=== PATIENT | female | born 1950 | race American Indian/Alaskan Native ===

== ENCOUNTER 2018-06-30 10:55 | Inpatient (IN) | payer MEDICARE ==
--- NOTE | 2018-06-30 11:13 | Emergency Department Report ---
Blank Doc - Documentation Documentation: Dr. Bella, GI states had colonoscopy yesterday bright red blood from rectum that began this morning, two episodes no abd pain no N/V states there were 4 polyps no pMHx no daily meds non drinker former smoker, quit 1988 no drug use labs MAIN for further eval
--- NOTE | 2018-06-30 11:50 | Emergency Department Report ---
HPI - General Chief Complaint: GI Bleed Time Seen by Provider: 06/30/18 11:11 - [facility] HPI: Room 7 Patient is a 68-year-old female presenting with a chief complaint rectal bleeding. Patient had a colonoscopy with polypectomy performed yesterday. The patient states this morning she felt as though she had the bathroom and when she did she passed gross blood. Patient states the blood appeared bright red in the bowl but dark with clots on the tissue. A few hours later the patient had a second episode of rectal bleeding. Patient denies ever having abdominal pain nausea vomiting. The patient states she has had approximate 40-50 pounds unintentional weight loss over the past year. Patient also complains of dyspnea on exertion approximately 3-5 months Location: [See above] Duration: [See above] Quality: Painless Severity: [See above] Modifying factors: [see above] Context: [see above] Mode of transportation: [not driving] ED Past Medical Hx - Past Medical History Previous Medical History?: No - Surgical History Past Surgical History?: No Additional Surgical History: Colonoscopy with polypectomy - Family History Family history: no significant - Social History Smoking Status: Former Smoker (none since 1988) Substance Use Type: None - Medications Home Medications: Home Medications Medication Instructions Recorded Confirmed Last Taken Type No Known Home Medications [No 06/30/18 06/30/18 Unknown History Reported Home Medications] ED Review of Systems ROS: Stated complaint: BLEEDING Other details as noted in HPI Constitutional: no symptoms reported Eyes: denies: eye pain ENT: denies: throat pain Respiratory: SOB with exertion Cardiovascular: denies: chest pain Endocrine: no symptoms reported Gastrointestinal: hematochezia. denies: abdominal pain, nausea, vomiting Genitourinary: denies: dysuria Musculoskeletal: denies: back pain Neurological: denies: headache Physical Exam - Physical Exam Vital Signs: Vital Signs 06/30/18 11:11 Temperature 98.1 F Pulse Rate 91 H Respiratory 16 Rate Blood Pressure 117/67 [Left] O2 Sat by Pulse 98 Oximetry Physical Exam: GENERAL: The patient is well-developed well-nourished female lying on stretcher not being to be in acute distress. [] HEENT: Normocephalic. Atraumatic. Extraocular motions are intact. Patient has moist mucous membranes. NECK: Supple. Trachea midline CHEST/LUNGS: Clear to auscultation. There is no respiratory distress noted. HEART/CARDIOVASCULAR: Regular. There is no tachycardia. There is no gallop rub or murmur. ABDOMEN: Abdomen is soft, nontender. Patient has normal bowel sounds. There is no abdominal distention. SKIN: There is no rash. There is no edema. There is no diaphoresis. NEURO: The patient is awake, alert, and oriented. The patient is cooperative. The patient has normal speech MUSCULOSKELETAL: There is no evidence of acute injury. ED Course Vital Signs 06/30/18 11:11 Temperature 98.1 F Pulse Rate 91 H Respiratory 16 Rate Blood Pressure 117/67 [Left] O2 Sat by Pulse 98 Oximetry - Consultations Consultation #1: 06/30/18 13:01 GI paged 06/30/18 13:20 Case discussed with GI (Betsy) ED Medical Decision Making - Lab Data Result diagrams: 06/30/18 11:35 06/30/18 11:35 Laboratory Tests 06/30/18 06/30/18 06/30/18 11:35 11:35 11:35 WBC 6.1 RBC 4.00 Hgb 12.2 Hct 36.3 MCV 91 MCH 31 MCHC 34 RDW 12.7 L Plt Count 210 Lymph % (Auto) 40.5 H [place] % (Auto) 7.4 H Eos % (Auto) 2.0 Baso % (Auto) 0.7 Lymph # 2.5 [place] # 0.5 Eos # 0.1 Baso # 0.0 Seg Neutrophils % 49.4 Seg Neutrophils # 3.0 PT 12.5 INR 0.88 APTT 28.1 Sodium 141 Potassium 4.3 Chloride 102.2 Carbon Dioxide 31 H Anion Gap 12 BUN 11 Creatinine 0.6 L Estimated GFR > 60 BUN/Creatinine Ratio 18 Glucose 114 H Calcium 9.2 Magnesium 1.80 Total Bilirubin 0.40 AST 19 ALT 24 Alkaline Phosphatase 75 NT-Pro-B Natriuret Pep Total Protein 6.7 Albumin 4.0 Albumin/Globulin Ratio 1.5 Lipase 29 Blood Type 06/30/18 06/30/18 11:38 11:55 WBC RBC Hgb Hct MCV MCH MCHC RDW Plt Count Lymph % (Auto) [place] % (Auto) Eos % (Auto) Baso % (Auto) Lymph # [place] # Eos # Baso # Seg Neutrophils % Seg Neutrophils # PT INR APTT Sodium Potassium Chloride Carbon Dioxide Anion Gap BUN Creatinine Estimated GFR BUN/Creatinine Ratio Glucose Calcium Magnesium Total Bilirubin AST ALT Alkaline Phosphatase NT-Pro-B Natriuret Pep 82.10 Total Protein Albumin Albumin/Globulin Ratio Lipase Blood Type A POSITIVE - Differential Diagnosis GI bleed Critical care attestation.: If time is entered above; I have spent that time in minutes in the direct care of this critically ill patient, excluding procedure time. ED Disposition Clinical Impression: GI bleeding, Orthostatic hypotension Disposition: -09 OP ADMIT IP TO THIS HOSP Is pt being admited?: Yes Does the pt Need Aspirin: No Condition: Fair Referrals: [facility]LY [facility] MD TARAN [Referring] - 3-5 Days Forms: Accompanied Note Time of Disposition: 12:59 (Hospitalist paged (Dr Anderson))
[2018-06-30 11:57] LABS: Basophils % (Auto) 0.7 % (0.0-1.8); Eosinophils # (Auto) 0.1 K/mm3 (0.0-0.4); Hematocrit 36.3 % (30.3-42.9); Hemoglobin 12.2 gm/dl (10.1-14.3); Lymphocytes # (Auto) 2.5 K/mm3 (1.2-5.4); Lymphocytes % (Auto) 40.5 % (13.4-35.0); Mean Corpuscular HGB Conc 34 % (30-34); Mean Corpuscular Volume 91 fl (79-97); Monocytes # (Auto) 0.5 K/mm3 (0.0-0.8); Monocytes % (Auto) 7.4 % (0.0-7.3); Platelet Count 210 K/mm3 (140-440); Red Cell Distribution Width 12.7 % (13.2-15.2)
[2018-06-30 12:13] LABS: Alanine Aminotransferase 24 units/L (7-56); BUN/Creatinine Ratio 18; Blood Urea Nitrogen 11 mg/dL (7-17); Calcium 9.2 mg/dL (8.4-10.2); Hemolysis Index 8
[2018-06-30 12:34] LABS: INR 0.88 (0.87-1.13)
[2018-06-30 12:37] LABS: Partial Thromboplastin Time 28.1 Sec. (24.2-36.6)
[2018-06-30] MEDS ORDERED: NACL 0.9% 1000 ML 1,000 ML IV ONE (12:57)
--- NOTE | 2018-06-30 17:25 | History and Physical Report ---
History of Present Illness Date of examination: 06/30/18 Date of admission: 06/30/18 13:02 Chief complaint: Lower GI Bleed 1 day History of present illness: 68-year-old female presenting with a chief complaint rectal bleeding. Patient had a colonoscopy with polypectomy performed yesterday. The patient states this morning she passed gross blood. Patient states the blood appeared bright red in the bowl but dark with clots on the tissue. A few hours later the patient had a second episode of rectal bleeding. Patient denies ever having abdominal pain nausea vomiting. The patient states she has had approximate 40-50 pounds unintentional weight loss over the past year. Patient also complains of dyspnea on exertion approximately 3-5 months Past Medical History Previous Medical History?: No Surgical History Past Surgical History?: No Additional Surgical History: Colonoscopy with polypectomy Family History Family history: no significant Social History Smoking Status: Former Smoker (none since 1988) Substance Use Type: None Review of Systems ROS: Stated complaint: BLEEDING Other details as noted in HPI Constitutional: no symptoms reported Eyes: denies: eye pain ENT: denies: throat pain Respiratory: SOB with exertion Cardiovascular: denies: chest pain Endocrine: no symptoms reported Gastrointestinal: hematochezia. denies: abdominal pain, nausea, vomiting Genitourinary: denies: dysuria Musculoskeletal: denies: back pain Neurological: denies: headache Medications and Allergies Allergies Allergy/AdvReac Type Severity Reaction Status Date / Time Penicillins Allergy Hives Verified 06/30/18 10:56 Home Medications Medication Instructions Recorded Confirmed Last Taken Type No Known Home Medications [No 06/30/18 06/30/18 Unknown History Reported Home Medications] Exam - Constitutional Vitals: Temp Pulse Resp BP Pulse Ox 97.9 F 78 18 148/61 99 06/30/18 14:50 06/30/18 14:50 06/30/18 14:50 06/30/18 14:50 06/30/18 14:50 General appearance: Present: no acute distress, well-nourished - EENT Eyes: Present: PERRL ENT: hearing intact, clear oral mucosa - Neck Neck: Present: supple, normal ROM - Respiratory Respiratory effort: normal Respiratory: bilateral: CTA - Cardiovascular Heart rate: 78 Rhythm: regular Heart Sounds: Present: S1 & S2. Absent: rub, click - Extremities Extremities: no ischemia, pulses intact, pulses symmetrical, No edema Peripheral Pulses: within normal limits - Abdominal General gastrointestinal: Present: soft, non-tender, non-distended, normal bowel sounds Female genitourinary: Present: normal - Rectal Rectal Exam: stool bloody - Integumentary Integumentary: Present: clear, warm, dry - Musculoskeletal Musculoskeletal: gait normal, strength equal bilaterally - Psychiatric Psychiatric: appropriate mood/affect, intact judgment & insight - Neurologic Neurologic: CNII-XII intact, moves all extremities - Allied Health Allied health notes reviewed: nursing, case management Results - Labs CBC & Chem 7: 06/30/18 11:35 06/30/18 11:35 Labs: Laboratory Last Values WBC 6.1 K/mm3 (4.5-11.0) 06/30/18 11:35 RBC 4.00 M/mm3 (3.65-5.03) 06/30/18 11:35 Hgb 12.2 gm/dl (10.1-14.3) 06/30/18 11:35 Hct 36.3 % (30.3-42.9) 06/30/18 11:35 MCV 91 fl (79-97) 06/30/18 11:35 MCH 31 pg (28-32) 06/30/18 11:35 MCHC 34 % (30-34) 06/30/18 11:35 RDW 12.7 % (13.2-15.2) L 06/30/18 11:35 Plt Count 210 K/mm3 (140-440) 06/30/18 11:35 Lymph % (Auto) 40.5 % (13.4-35.0) H 06/30/18 11:35 [place] % (Auto) 7.4 % (0.0-7.3) H 06/30/18 11:35 Eos % (Auto) 2.0 % (0.0-4.3) 06/30/18 11:35 Baso % (Auto) 0.7 % (0.0-1.8) 06/30/18 11:35 Lymph # 2.5 K/mm3 (1.2-5.4) 06/30/18 11:35 [place] # 0.5 K/mm3 (0.0-0.8) 06/30/18 11:35 Eos # 0.1 K/mm3 (0.0-0.4) 06/30/18 11:35 Baso # 0.0 K/mm3 (0.0-0.1) 06/30/18 11:35 Seg Neutrophils % 49.4 % (40.0-70.0) 06/30/18 11:35 Seg Neutrophils # 3.0 K/mm3 (1.8-7.7) 06/30/18 11:35 PT 12.5 Sec. (12.2-14.9) 06/30/18 11:35 INR 0.88 (0.87-1.13) 06/30/18 11:35 APTT 28.1 Sec. (24.2-36.6) 06/30/18 11:35 Sodium 141 mmol/L (137-145) 06/30/18 11:35 Potassium 4.3 mmol/L (3.6-5.0) 06/30/18 11:35 Chloride 102.2 mmol/L (98-107) 06/30/18 11:35 Carbon Dioxide 31 mmol/L (22-30) H 06/30/18 11:35 12 mmol/L 06/30/18 11:35 BUN 11 mg/dL (7-17) 06/30/18 11:35 0.6 mg/dL (0.7-1.2) L 06/30/18 11:35 Estimated GFR > 60 ml/min 06/30/18 11:35 18 % 06/30/18 11:35 Glucose 114 mg/dL (65-100) H 06/30/18 11:35 Calcium 9.2 mg/dL (8.4-10.2) 06/30/18 11:35 Magnesium 1.80 mg/dL (1.7-2.3) 06/30/18 11:35 0.40 mg/dL (0.1-1.2) 06/30/18 11:35 AST 19 units/L (5-40) 06/30/18 11:35 ALT 24 units/L (7-56) 06/30/18 11:35 75 units/L (35-129) 06/30/18 11:35 NT-Pro-B Natriuret Pep 82.10 pg/mL (0-900) 06/30/18 11:55 6.7 g/dL (6.3-8.2) 06/30/18 11:35 4.0 g/dL (3.9-5) 06/30/18 11:35 1.5 % 06/30/18 11:35 29 units/L (13-60) 06/30/18 11:35 Blood Type A POSITIVE 06/30/18 11:38 Antibody Screen Negative 06/30/18 11:38 Assessment and Plan Advance Directives: Yes (ull code) VTE prophylaxis?: Chemical, Mechanical Plan of care discussed with patient/family: Yes - Patient Problems (1) Lower GI bleed Current Visit: Yes Status: Acute Plan to address problem: Sec to procedure R/o bleeding laesion Obsevation COlonoscopy if necessary May resolve by itself (2) Orthostatic hypotension Current Visit: Yes Status: Acute Plan to address problem: IV Fluids for now (3) DVT prophylaxis Current Visit: Yes Status: Acute Plan to address problem: On SCd's and GI prophylaxis
--- NOTE | 2018-06-30 17:57 | Consultation ---
REFERRING PHYSICIAN: Rodney Anderson MD INDICATION: Rectal bleeding. HISTORY: The patient is a 68-year-old black female presents for lower gastrointestinal bleed. The patient had a colonoscopy as there were 4 polyps were removed by Dr. Bella. The patient reports she was okay overnight, but this morning at about 7:00 p.m. had a bloody bowel movement with small clots. She reports since that time, she has had two more offset bowel movements including one since she has been admitted. She reports no abdominal pain. She reports no upper GI symptoms including nausea, vomiting, heartburn, or reflux ingestion. She reports she had not taken any NSAIDs. The patient subsequently came to the Emergency Room and was admitted and GI consulted. PAST MEDICAL HISTORY: Negative. MEDICATIONS: Reviewed and updated in chart. ALLERGIES: No known drug allergies. SOCIAL HISTORY: Denies alcohol, tobacco, or IV drug abuse. FAMILY HISTORY: Negative for colon cancer, IBD, or liver disease. REVIEW OF SYSTEMS: GENERAL: Reports mild weakness. HEENT: No visual complaints or tinnitus. PULMONARY: No shortness of breath. No cough. No chest pain. GASTROINTESTINAL: Reports rectal bleeding. All points of 13-point review of systems otherwise negative. PHYSICAL EXAMINATION: VITAL SIGNS: Temperature of 97.9, pulse 70, respirations 20, blood pressure 148/61. GENERAL: Fairly nourished female, in no acute distress. HEENT: Pupils equal, round and reactive. PULMONARY: Clear to auscultation bilaterally. CARDIOVASCULAR: Regular rhythm. Normal S1, S2. ABDOMEN: Positive bowel sounds, soft. SKIN: No obvious rashes. LABORATORY DATA: Pertinent for white count of 6, hemoglobin and hematocrit of 12.2 and 36.3, platelet count of 210. Coags within normal limits. Chem-7 within normal limits. LFTs within normal limits. ASSESSMENT AND PLAN: A 68-year-old female presents with post-polypectomy bleed after colonoscopy yesterday removed 4 polyps. The patient has not had any further bloody bowel movements and has had 3 total today. I have discussed her options with her and her family. They would want to take a more conservative approach at this time. PLAN: 1. We will follow hematocrit and transfuse as needed. 2. Clear liquid diet, n.p.o. after midnight. 3. Avoid anti-inflammatories and NSAIDs. 4. We will hold on repeat colonoscopy unless the patient shows signs of active bleeding. 5. If H and H stable in a.m., okay to discharge. [facility]# [id number] [facility]
[2018-07-01] MEDS ORDERED: TYLENOL PO PRN (01:12)
[2018-07-01] MEDS ORDERED: MORPHINE IV PRN (01:12)
[2018-07-01] MEDS ORDERED: ZOFRAN IV PRN (01:12)
[2018-07-01] MEDS ORDERED: SODIUM CHLORIDE FLUSH SYRINGE 10 ML IV PRN (01:12)
[2018-07-01 01:56] LABS: Basophils % (Auto) 0.6 % (0.0-1.8); Eosinophils # (Auto) 0.1 K/mm3 (0.0-0.4); Eosinophils % (Auto) 2.3 % (0.0-4.3); Hematocrit 33.9 % (30.3-42.9); Hemoglobin 11.4 gm/dl (10.1-14.3); Lymphocytes # (Auto) 2.3 K/mm3 (1.2-5.4); Lymphocytes % (Auto) 39.7 % (13.4-35.0); Mean Corpuscular HGB Conc 34 % (30-34); Mean Corpuscular Volume 91 fl (79-97); Monocytes # (Auto) 0.4 K/mm3 (0.0-0.8); Monocytes % (Auto) 7.6 % (0.0-7.3); Platelet Count 192 K/mm3 (140-440); Red Blood Count 3.72 M/mm3 (3.65-5.03); Red Cell Distribution Width 12.7 % (13.2-15.2)
[2018-07-01] MEDS ORDERED: NACL 0.9% 1000 ML 1,000 ML IV SCH (02:00)
[2018-07-01 02:22] LABS: Alanine Aminotransferase 25 units/L (7-56); Albumin 3.8 g/dL (3.9-5); BUN/Creatinine Ratio 20; Blood Urea Nitrogen 10 mg/dL (7-17); Calcium 9.7 mg/dL (8.4-10.2); Hemolysis Index 6
[2018-07-01] MEDS ORDERED: PEPCID IV SCH (10:00)
[2018-07-01] MEDS ORDERED: SODIUM CHLORIDE FLUSH SYRINGE 10 ML IV SCH (10:00)
--- NOTE | 2018-07-01 10:45 | Discharge Summary ---
Providers - Providers Date of Admission: 06/30/18 13:02 Date of discharge: 07/01/18 Attending physician: NATY AHMADI 06/30/18 13:19 Consult to Physician [CONS] Urgent Comment: called office/ oswald spoke to michelle Consulting Provider: ESAU MADRIGAL Physician Instructions: Reason For Exam: gi bleed Primary care physician: STEVE CARRERO MD Hospitalization Condition: Fair Hospital course: Patient is 68-year-old female presenting with a chief complaint rectal bleeding. Patient had a colonoscopy with polypectomy performed day prior to presentation. She was seen in this department and evaluated. He was evaluated in ED. Hemoglobin was stable at 12.2. She was admitted and evaluated by GI physician. He recommends patient to be discharged home since hemoglobin is stable and there was no further bleeding. Disposition: TO HOME OR SELFCARE - Discharge Diagnoses (1) Lower GI bleed Status: Acute (2) Orthostatic hypotension Status: Acute Core Measure Documentation - Palliative Care Palliative Care/ Comfort Measures: Not Applicable - Core Measures Any of the following diagnoses?: none Exam - Constitutional Vitals: Temp Pulse Resp BP Pulse Ox 98.0 F 79 18 119/43 100 07/01/18 08:05 07/01/18 08:05 07/01/18 08:05 07/01/18 08:05 07/01/18 08:05 Plan Activity: no restrictions Diet: regular Additional Instructions: 1.Follow up with PCP in 1 week. 2.Follow up with GI Physician in 1 wwek Follow up with: LIZ STEPHENSON MD [Referring] - 3-5 Days Forms: Accompanied Note
--- NOTE | 2018-07-01 10:54 | Gastroenterology Progress Note ---
Assessment and Plan 1. Post-polypectomy bleed - no further bleeding overnight/this morning. H/H stable. okay to be discharged. pt instructed to call/return to hospital for any changes/recurrent bleeding. cont to avoid nsaid's. will sign off, please call as needed. Subjective Date of service: 07/01/18 Principal diagnosis: gi bleed Interval history: pt seen and examined. scant blood with bm at 1 am followed by normal bm this morning without blood. denies abd pain. Objective - Constitutional Vitals: Temp Pulse Resp BP Pulse Ox 98.0 F 79 18 119/43 100 07/01/18 08:05 07/01/18 08:05 07/01/18 08:05 07/01/18 08:05 07/01/18 08:05 General appearance: no acute distress - Respiratory Respiratory effort: normal Respiratory: bilateral: CTA - Cardiovascular Rhythm: regular Heart Sounds: Present: S1 & S2 - Gastrointestinal General gastrointestinal: Present: soft, non-tender, non-distended - Neurologic Neurological: alert and oriented x3 - Labs CBC & Chem 7: 07/01/18 01:35 07/01/18 01:35 Labs: Laboratory Results - last 24 hr 06/30/18 06/30/18 06/30/18 11:35 11:35 11:35 WBC 6.1 RBC 4.00 Hgb 12.2 Hct 36.3 MCV 91 MCH 31 MCHC 34 RDW 12.7 L Plt Count 210 Lymph % (Auto) 40.5 H [place] % (Auto) 7.4 H Eos % (Auto) 2.0 Baso % (Auto) 0.7 Lymph # 2.5 [place] # 0.5 Eos # 0.1 Baso # 0.0 Seg Neutrophils % 49.4 Seg Neutrophils # 3.0 PT 12.5 INR 0.88 APTT 28.1 Sodium 141 Potassium 4.3 Chloride 102.2 Carbon Dioxide 31 H Anion Gap 12 BUN 11 Creatinine 0.6 L Estimated GFR > 60 BUN/Creatinine Ratio 18 Glucose 114 H Calcium 9.2 Magnesium 1.80 Total Bilirubin 0.40 AST 19 ALT 24 Alkaline Phosphatase 75 NT-Pro-B Natriuret Pep Total Protein 6.7 Albumin 4.0 Albumin/Globulin Ratio 1.5 Lipase 29 Blood Type Antibody Screen 06/30/18 06/30/18 07/01/18 11:38 11:55 01:35 WBC 5.8 RBC 3.72 Hgb 11.4 Hct 33.9 MCV 91 MCH 31 MCHC 34 RDW 12.7 L Plt Count 192 Lymph % (Auto) 39.7 H [place] % (Auto) 7.6 H Eos % (Auto) 2.3 Baso % (Auto) 0.6 Lymph # 2.3 [place] # 0.4 Eos # 0.1 Baso # 0.0 Seg Neutrophils % 49.8 Seg Neutrophils # 2.9 PT INR APTT Sodium Potassium Chloride Carbon Dioxide Anion Gap BUN Creatinine Estimated GFR BUN/Creatinine Ratio Glucose Calcium Magnesium Total Bilirubin AST ALT Alkaline Phosphatase NT-Pro-B Natriuret Pep 82.10 Total Protein Albumin Albumin/Globulin Ratio Lipase Blood Type A POSITIVE Antibody Screen Negative 07/01/18 01:35 WBC RBC Hgb Hct MCV MCH MCHC RDW Plt Count Lymph % (Auto) [place] % (Auto) Eos % (Auto) Baso % (Auto) Lymph # [place] # Eos # Baso # Seg Neutrophils % Seg Neutrophils # PT INR APTT Sodium 141 Potassium 3.9 Chloride 101.8 Carbon Dioxide 26 Anion Gap 17 BUN 10 Creatinine 0.5 L Estimated GFR > 60 BUN/Creatinine Ratio 20 Glucose 105 H Calcium 9.7 Magnesium Total Bilirubin 0.70 AST 21 ALT 25 Alkaline Phosphatase 71 NT-Pro-B Natriuret Pep Total Protein 6.6 Albumin 3.8 L Albumin/Globulin Ratio 1.4 Lipase Blood Type Antibody Screen
[2018-07-01 14:24] VITALS: BP 153/62
== END 2018-07-01 15:29 | disposition home or self-care (01) | DRG 921 ==
LOC: ED 10:55 → 2B-ACE 13:02
PROVIDERS: ADMIT Internal Medicine; ATTEND Internal Medicine
DX: K91.840 Postprocedural hemorrhage of a digestive system organ or structure following a digestive system procedure (principal); I95.1 Orthostatic hypotension; Y83.8 Other surgical procedures as the cause of abnormal reaction of the patient, or of later complication, without mention of misadventure at the time of the procedure; Y92.89 Other specified places as the place of occurrence of the external cause; Z87.891 Personal history of nicotine dependence
CPT/HCPCS: 36415; 80053; 83690; 83735; 83880; 85025; 85610; 85730; 86850; 86900; 86901; 96374; G0378; J7030

== ENCOUNTER 2018-07-26 22:51 | Inpatient (IN) | payer MEDICARE ==
[2018-07-26] MEDS: ASPIRIN PO ONE ×2 (23:09→23:45)
[2018-07-26] MEDS ORDERED: NACL 0.9% 500 ML 500 ML ONE (23:13)
[2018-07-26] MEDS ORDERED: CARDIZEM ONE (23:18)
[2018-07-26] MEDS ORDERED: CARDIZEM IV ONE (23:22)
[2018-07-26 23:43] LABS: Basophils % (Auto) 0.6 % (0.0-1.8); Eosinophils # (Auto) 0.2 K/mm3 (0.0-0.4); Eosinophils % (Auto) 3.2 % (0.0-4.3); Hematocrit 37.5 % (30.3-42.9); Hemoglobin 12.6 gm/dl (10.1-14.3); Lymphocytes # (Auto) 3.5 K/mm3 (1.2-5.4); Lymphocytes % (Auto) 48.7 % (13.4-35.0); Mean Corpuscular HGB Conc 34 % (30-34); Mean Corpuscular Volume 92 fl (79-97); Monocytes # (Auto) 0.5 K/mm3 (0.0-0.8); Monocytes % (Auto) 7.5 % (0.0-7.3); Platelet Count 242 K/mm3 (140-440); Red Blood Count 4.08 M/mm3 (3.65-5.03)
--- NOTE | 2018-07-26 23:58 | Emergency Department Report ---
ED Palpitations HPI - General Chief Complaint: Chest Pain Stated Complaint: CHEST PAIN Time Seen by Provider: 07/26/18 23:07 Source: patient Mode of arrival: Ambulatory Limitations: No Limitations - History of Present Illness Initial Comments: 68-year-old female with no Past medical history other than recent admission for mild rectal bleeding status post polypectomy during colonoscopy presents to Hospital with complaint of palpitations, chest pain, shortness of breath that started 30 minutes prior to arrival. Symptoms are constant. No aggravating or alleviating factors reported. Lightheadedness reported. Patient denies a history of previous SVT, heart arrhythmia, or any type of heart disease. Patient states that she had outpatient CT scan abdomen and pelvis with IV contrast performed today to workup for unexplained weight loss. - Related Data Home Medications Medication Instructions Recorded Confirmed Last Taken No Known Home Medications [No 06/30/18 06/30/18 Unknown Reported Home Medications] Allergies Allergy/AdvReac Type Severity Reaction Status Date / Time Penicillins Allergy Hives Verified 06/30/18 10:56 ED Review of Systems ROS: Stated complaint: CHEST PAIN Other details as noted in HPI Comment: All other systems reviewed and negative ED Past Medical Hx - Past Medical History Previous Medical History?: No - Surgical History Past Surgical History?: Yes Additional Surgical History: Colonoscopy with polypectomy - Social History Smoking Status: Never Smoker - Medications Home Medications: Home Medications Medication Instructions Recorded Confirmed Last Taken Type No Known Home Medications [No 06/30/18 06/30/18 Unknown History Reported Home Medications] ED Physical Exam - General Limitations: No Limitations - Other Other exam information: General: Patient appears to be uncomfortable Head exam: Atraumatic, normocephalic Eyes exam: Normal appearance ENT: Moist mucous membrane, normal oropharynx Neck exam: Normal inspection, full range of motion, no meningismus nontender, no goiter Respiratory exam: Clear to auscultation bilateral, no wheezes, rales, crackles Cardiovascular: Tachycardic, regular rhythm Abdomen: Soft, nondistended, and nontender, with normal bowel sounds, no rebound, or guarding Extremity: Full range of motion normal inspection no deformity, no calf tenderness or edema Back: Normal Inspection, full range of motion, no tenderness Neurologic: Alert, oriented x3, cranial nerves intact, no motor or sensory defic it Psychiatric: normal affect, normal mood Skin: Warm, dry, intact ED Course Vital Signs 07/26/18 07/26/18 22:55 23:10 Temperature 98.0 F Pulse Rate 176 H Respiratory 20 24 Rate Blood Pressure 144/99 O2 Sat by Pulse 98 Oximetry - Reevaluation(s) Reevaluation #1: 07/26/18 23:41 Patient have several different rhythms in the ED. She initially had SVT at rate of 166. During evaluation patient states that she felt like her heart rate was improving. Rhythm on monitor slowe down briefly appeared to be sinus with then quickly sped back up. Then rhythm appeared to be a flutter with a rate in the 160s. Patient did receive adenosine 6 mg and atrial flutter waves were more prominent. The patient's heart rate quickly increased back to the 160s with noticeable flutter waves. Patient received Cardizem 15 mg with improvement in heart rate to 80 and was difficult to discern P waves on the rhythm strip however, repeat EKG confirmed sinus rhythm rate 69. I have printed the above rhythm strips and indicated on the rhythm strips when the medications were given and the associated rhythm changes. Please refer to rhythm strips printed on chart until these are scanned into [facility] - Consultations Consultation #1: 07/27/18 00:16 case d/w Dr Norwood cardiology, will consult ED Medical Decision Making - Lab Data Result diagrams: 07/26/18 23:13 07/26/18 23:13 Lab Results 07/26/18 07/26/18 07/26/18 Range/Units 23:13 23:13 23:13 WBC 7.2 (4.5-11.0) K/mm3 RBC 4.08 (3.65-5.03) M/mm3 Hgb 12.6 (10.1-14.3) gm/dl Hct 37.5 (30.3-42.9) % MCV 92 (79-97) fl MCH 31 (28-32) pg MCHC 34 (30-34) % RDW 13.0 L (13.2-15.2) % Plt Count 242 (140-440) K/mm3 Lymph % (Auto) 48.7 H (13.4-35.0) % [place] % (Auto) 7.5 H (0.0-7.3) % Eos % (Auto) 3.2 (0.0-4.3) % Baso % (Auto) 0.6 (0.0-1.8) % Lymph # 3.5 (1.2-5.4) K/mm3 [place] # 0.5 (0.0-0.8) K/mm3 Eos # 0.2 (0.0-0.4) K/mm3 Baso # 0.0 (0.0-0.1) K/mm3 Seg Neutrophils % 40.0 (40.0-70.0) % Seg Neutrophils # 2.9 (1.8-7.7) K/mm3 PT 11.1 L (12.2-14.9) Sec. INR 0.83 L (0.87-1.13) APTT 25.6 (24.2-36.6) Sec. Sodium 138 (137-145) mmol/L Potassium 4.1 (3.6-5.0) mmol/L Chloride 100.0 (98-107) mmol/L Carbon Dioxide 23 (22-30) mmol/L Anion Gap 19 mmol/L BUN 16 (7-17) mg/dL Creatinine 0.7 (0.7-1.2) mg/dL Estimated GFR > 60 ml/min BUN/Creatinine Ratio 23 % Glucose 122 H (65-100) mg/dL Calcium 9.6 (8.4-10.2) mg/dL Magnesium (1.7-2.3) mg/dL Troponin T < 0.010 (0.00-0.029) ng/mL 07/26/18 Range/Units 23:13 WBC (4.5-11.0) K/mm3 RBC (3.65-5.03) M/mm3 Hgb (10.1-14.3) gm/dl Hct (30.3-42.9) % MCV (79-97) fl MCH (28-32) pg MCHC (30-34) % RDW (13.2-15.2) % Plt Count (140-440) K/mm3 Lymph % (Auto) (13.4-35.0) % [place] % (Auto) (0.0-7.3) % Eos % (Auto) (0.0-4.3) % Baso % (Auto) (0.0-1.8) % Lymph # (1.2-5.4) K/mm3 [place] # (0.0-0.8) K/mm3 Eos # (0.0-0.4) K/mm3 Baso # (0.0-0.1) K/mm3 Seg Neutrophils % (40.0-70.0) % Seg Neutrophils # (1.8-7.7) K/mm3 PT (12.2-14.9) Sec. INR (0.87-1.13) APTT (24.2-36.6) Sec. Sodium (137-145) mmol/L Potassium (3.6-5.0) mmol/L Chloride (98-107) mmol/L Carbon Dioxide (22-30) mmol/L Anion Gap mmol/L BUN (7-17) mg/dL Creatinine (0.7-1.2) mg/dL Estimated GFR ml/min BUN/Creatinine Ratio % Glucose (65-100) mg/dL Calcium (8.4-10.2) mg/dL Magnesium 1.90 (1.7-2.3) mg/dL Troponin T (0.00-0.029) ng/mL - EKG Data -: EKG Interpreted by Ar EKG shows normal: axis (qrs 68), QRS complexes (qrsd 106), ST-T waves (no stemi) Rate: tachycardia (163 (supraventricular tachcardia)) - EKG Data 07/26/18 23:24 (after cardizem) ekg sinus rhythm rate 69 qrs axis 59, qrsd 73, no setim - Radiology Data Radiology results: report reviewed (cxr: naf) - Medical Decision Making Patient felt much better remains in sinus rhythm since receiving Cardizem. She denies any persistent chest pain or shortness of breath. Thyroid tests are pending at disposition case discussed with health information specialist graphic coordinator and hospitalist. - Differential Diagnosis atrial fibrillation, SVT, thyroid disease, MA, Critical Care Time: No Critical care attestation.: If time is entered above; I have spent that time in minutes in the direct care of this critically ill patient, excluding procedure time. ED Disposition Clinical Impression: SVT (supraventricular tachycardia), Atrial flutter with rapid ventricular re sponse Disposition: OP ADMIT IP TO THIS HOSP Is pt being admited?: Yes Does the pt Need Aspirin: Yes Condition: Stable Time of Disposition: 00:35 (Dr De Souza/hosp)
[2018-07-26 23:59] LABS: INR 0.83 (0.87-1.13); Partial Thromboplastin Time 25.6 Sec. (24.2-36.6)
[2018-07-27 00:06] LABS: BUN/Creatinine Ratio 23; Blood Urea Nitrogen 16 mg/dL (7-17); Calcium 9.6 mg/dL (8.4-10.2); Hemolysis Index 10
--- NOTE | 2018-07-27 00:06 | XRay Report ---
PROCEDURE: XR CHEST 1V AP TECHNIQUE: Chest radiograph single view. HISTORY: Chest Pain COMPARISONS: None . FINDINGS: Heart: Normal. Mediastinum/Vessels: Normal. Lungs/Pleural space: Normal. Bony thorax: No acute osseous abnormality. Life support devices: None. IMPRESSION: No acute cardiopulmonary abnormality. This document is electronically signed by Lemuel Medrano MD., July 27 2018 12:04:06 AM ET
[2018-07-27] MEDS ORDERED: ASPIRIN PO ONE (00:18)
--- NOTE | 2018-07-27 01:33 | History and Physical Report ---
History of Present Illness Chief complaint: Palpitations History of present illness: 68-year-old with no significant past medical history She presents to the hospital one day of chest pains palpitations associated with shortness of breath. He was episodic in nature. She felt like her heart was going to jump out of her chest. -She states that she has had no changes in her health except for unexpected/unplanned weight loss. She had just received a contrast CT of the abdomen and pelvis earlier today for evaluation of cause of weight loss. In the ED she had alternating heart rate then, in and out of atrial flut ter/atrial fibrillation and SVT. The patient received adenosine followed by [facility] after which she went back to sinus rhythm Past medical history History of colonic polyps with mild bleeding after polypectomy Past surgical history Denies any major surgeries, admits to polypectomy with colonoscopy Social history No tobacco alcohol abuse or illicit drug use. Lives at home Family history; her son had a flutter requiring ablation Medications and Allergies Allergies Allergy/AdvReac Type Severity Reaction Status Date / Time Penicillins Allergy Hives Verified 06/30/18 10:56 Home Medications Medication Instructions Recorded Confirmed Last Taken Type No Known Home Medications [No 06/30/18 07/27/18 Unknown History Reported Home Medications] Review of Systems All systems: negative Constitutional: no weight loss Ears, nose, mouth and throat: no tinnitis Breasts: no deferred Cardiovascular: chest pain, palpitations, rapid/irregular heart beat, no orthopn ea, no edema, no syncope Respiratory: no cough Gastrointestinal: no abdominal pain Genitourinary Female: no pelvic pain Rectal: no pain Musculoskeletal: no neck stiffness Integumentary: no rash Neurological: no head injury Psychiatric: no anxiety Endocrine: no cold intolerance Hematologic/Lymphatic: no easy bruising Allergic/Immunologic: no urticaria Exam - Constitutional Vitals: Temp Pulse Resp BP Pulse Ox 98.0 F 176 H 24 144/99 98 07/26/18 22:55 07/26/18 22:55 07/26/18 23:10 07/26/18 22:55 07/26/18 22:55 General appearance: Present: no acute distress, well-nourished - EENT Eyes: Present: PERRL ENT: hearing intact, clear oral mucosa - Neck Neck: Present: supple, normal ROM - Respiratory Respiratory effort: normal Respiratory: bilateral: CTA - Cardiovascular Heart Sounds: Present: S1 & S2. Absent: rub, click - Extremities Extremities: pulses symmetrical, No edema Peripheral Pulses: within normal limits - Abdominal General gastrointestinal: Present: soft, non-tender, non-distended, normal bowel sounds Female genitourinary: Present: normal - Integumentary Integumentary: Present: clear, warm, dry - Musculoskeletal Musculoskeletal: gait normal, strength equal bilaterally - Psychiatric Psychiatric: appropriate mood/affect, intact judgment & insight - Neurologic Neurologic: CNII-XII intact, moves all extremities Results - Labs CBC & Chem 7: 07/27/18 01:59 07/26/18 23:13 Labs: Laboratory Last Values WBC 7.2 K/mm3 (4.5-11.0) 07/26/18 23:13 RBC 4.08 M/mm3 (3.65-5.03) 07/26/18 23:13 Hgb 12.6 gm/dl (10.1-14.3) 07/26/18 23:13 Hct 37.5 % (30.3-42.9) 07/26/18 23:13 MCV 92 fl (79-97) 07/26/18 23:13 MCH 31 pg (28-32) 07/26/18 23:13 MCHC 34 % (30-34) 07/26/18 23:13 RDW 13.0 % (13.2-15.2) L 07/26/18 23:13 Plt Count 242 K/mm3 (140-440) 07/26/18 23:13 Lymph % (Auto) 48.7 % (13.4-35.0) H 07/26/18 23:13 [place] % (Auto) 7.5 % (0.0-7.3) H 07/26/18 23:13 Eos % (Auto) 3.2 % (0.0-4.3) 07/26/18 23:13 Baso % (Auto) 0.6 % (0.0-1.8) 07/26/18 23:13 Lymph # 3.5 K/mm3 (1.2-5.4) 07/26/18 23:13 [place] # 0.5 K/mm3 (0.0-0.8) 07/26/18 23:13 Eos # 0.2 K/mm3 (0.0-0.4) 07/26/18 23:13 Baso # 0.0 K/mm3 (0.0-0.1) 07/26/18 23:13 Seg Neutrophils % 40.0 % (40.0-70.0) 07/26/18 23:13 Seg Neutrophils # 2.9 K/mm3 (1.8-7.7) 07/26/18 23:13 PT 11.1 Sec. (12.2-14.9) L 07/26/18 23:13 INR 0.83 (0.87-1.13) L 07/26/18 23:13 APTT 25.6 Sec. (24.2-36.6) 07/26/18 23:13 Sodium 138 mmol/L (137-145) 07/26/18 23:13 Potassium 4.1 mmol/L (3.6-5.0) 07/26/18 23:13 Chloride 100.0 mmol/L (98-107) 07/26/18 23:13 Carbon Dioxide 23 mmol/L (22-30) 07/26/18 23:13 19 mmol/L 07/26/18 23:13 BUN 16 mg/dL (7-17) 07/26/18 23:13 0.7 mg/dL (0.7-1.2) 07/26/18 23:13 Estimated GFR > 60 ml/min 07/26/18 23:13 23 % 07/26/18 23:13 Glucose 122 mg/dL (65-100) H 07/26/18 23:13 Calcium 9.6 mg/dL (8.4-10.2) 07/26/18 23:13 Magnesium 1.90 mg/dL (1.7-2.3) 07/26/18 23:13 < 0.010 ng/mL (0.00-0.029) 07/26/18 23:13 - Imaging and Cardiology EKG: image reviewed (atrial flutter) Chest x-ray: image reviewed (no acute findings) Assessment and Plan Assessment and plan: 68-year-old woman with no significant past medical history who presents to the hospital with SVT/atrial flutter with RVR Diagnosis Atrial flutter with RVR Plan Now in sinus rhythm after receiving adenosine and Cardizem. We'll start her on beta judy twice a day Heparin drip as patient may need cardioversion, echo and cardiology consults
[2018-07-27] MEDS ORDERED: ZOFRAN IV PRN (01:34)
[2018-07-27] MEDS ORDERED: SODIUM CHLORIDE FLUSH SYRINGE 10 ML IV PRN (01:34)
[2018-07-27 01:40] LABS: Free T4 (Free Thyroxine) 1.42 ng/dL (0.76-1.46)
[2018-07-27] MEDS ORDERED: HEPARIN/ 0.45% NACL-25,000 UNIT/500 ML 25,000 UNIT/500 ML BAG IV SCH (02:00)
[2018-07-27 02:16] LABS: Hematocrit 37.4 % (30.3-42.9); Hemoglobin 12.6 gm/dl (10.1-14.3)
[2018-07-27 02:42] LABS: INR 0.92 (0.87-1.13)
[2018-07-27 02:43] LABS: Partial Thromboplastin Time 27.6 Sec. (24.2-36.6)
[2018-07-27] MEDS: LOPRESSOR PO SCH ×2 (03:52→09:53)
--- NOTE | 2018-07-27 07:37 | Progress Note ---
Assessment and Plan Assessment and plan: Patient is a 68 yo woman without chronic medical problems who presented with palpitations and found to have SVT and Atrial flutter with RVR. Treated successfully after adenosine and converted with IV Cardizem. Atrial flutter with RVR: rate control, Echo, Cardiology consulted, on iv heparin drip for possible Cardioversion prolonged inpatient services 31 minutes History Interval history: Patient was seen and examined. Follow-up on current diagnosis of Tachycardia. No overnight events reported to me. Patient denies any chest pain, shortness breath, nausea/vomiting or severe headaches. Imaging, nursing note, chart, labs and old chart reviewed. Discussed with patient. Hospitalist Physical - Physical exam Narrative exam: Gen: WDWN, NAD, Awake, Alert, Orientated HEENT: NCAT, EOMI, PERRL, OP Clear Neck: supple, no adenopathy, no thyromegaly, no JVD CVS/Heart: RRR, normal S1S2, pulses present bilaterally Chest/Lungs: CTA B, Symmetrical chest expansion, good air entry bilaterally GI/Abdomen: soft, NTND, good bowel sounds, no guarding or rebound /Bladder: no suprapubic tenderness, no CVA or paraspinal tenderness Extermity/Skin: no c/c/e, no obvious rash MSK: FROM x 4 Neuro: CN 2-12 grossly intact, no new focal deficits Psych: calm - Constitutional Vitals: Temp Pulse Resp BP Pulse Ox 98.4 F 69 18 133/32 100 07/27/18 04:28 07/27/18 04:30 07/27/18 04:28 07/27/18 04:28 07/27/18 04:28 General appearance: Present: no acute distress, well-nourished Results - Labs CBC & Chem 7: 07/27/18 01:59 07/26/18 23:13 Labs: Laboratory Last Values WBC 7.2 K/mm3 (4.5-11.0) 07/26/18 23:13 RBC 4.08 M/mm3 (3.65-5.03) 07/26/18 23:13 Hgb 12.6 gm/dl (10.1-14.3) 07/27/18 01:59 Hct 37.4 % (30.3-42.9) 07/27/18 01:59 MCV 92 fl (79-97) 07/26/18 23:13 MCH 31 pg (28-32) 07/26/18 23:13 MCHC 34 % (30-34) 07/26/18 23:13 RDW 13.0 % (13.2-15.2) L 07/26/18 23:13 Plt Count 224 K/mm3 (140-440) 07/27/18 01:59 Lymph % (Auto) 48.7 % (13.4-35.0) H 07/26/18 23:13 [place] % (Auto) 7.5 % (0.0-7.3) H 07/26/18 23:13 Eos % (Auto) 3.2 % (0.0-4.3) 07/26/18 23:13 Baso % (Auto) 0.6 % (0.0-1.8) 07/26/18 23:13 Lymph # 3.5 K/mm3 (1.2-5.4) 07/26/18 23:13 [place] # 0.5 K/mm3 (0.0-0.8) 07/26/18 23:13 Eos # 0.2 K/mm3 (0.0-0.4) 07/26/18 23:13 Baso # 0.0 K/mm3 (0.0-0.1) 07/26/18 23:13 Seg Neutrophils % 40.0 % (40.0-70.0) 07/26/18 23:13 Seg Neutrophils # 2.9 K/mm3 (1.8-7.7) 07/26/18 23:13 PT 12.1 Sec. (12.2-14.9) L 07/27/18 01:59 INR 0.92 (0.87-1.13) 07/27/18 01:59 APTT 27.6 Sec. (24.2-36.6) 07/27/18 01:59 Sodium 138 mmol/L (137-145) 07/26/18 23:13 Potassium 4.1 mmol/L (3.6-5.0) 07/26/18 23:13 Chloride 100.0 mmol/L (98-107) 07/26/18 23:13 Carbon Dioxide 23 mmol/L (22-30) 07/26/18 23:13 19 mmol/L 07/26/18 23:13 BUN 16 mg/dL (7-17) 07/26/18 23:13 0.7 mg/dL (0.7-1.2) 07/26/18 23:13 Estimated GFR > 60 ml/min 07/26/18 23:13 23 % 07/26/18 23:13 Glucose 122 mg/dL (65-100) H 07/26/18 23:13 Calcium 9.6 mg/dL (8.4-10.2) 07/26/18 23:13 Magnesium 1.90 mg/dL (1.7-2.3) 07/26/18 23:13 < 0.010 ng/mL (0.00-0.029) 07/27/18 05:36 TSH 1.490 mlU/mL (0.270-4.200) 07/26/18 23:13 Free T4 1.42 ng/dL (0.76-1.46) 07/26/18 23:13 Active Medications - Current Medications Current Medications: Generic Name Dose Route Start Last Admin Trade Name Freq PRN Reason Stop Dose Admin Acetaminophen 650 mg 07/27/18 01:34 Tylenol PO Q4H PRN Pain MILD(1-3)/Fever >100.5/WHITESIDE Heparin Sodium/Sodium Chloride 25,000 unit in 500 mls @ 18 mls/hr 07/27/18 02:00 07/27/18 03:48 Heparin/ 0.45% Nacl-25,000 Unit/500 Ml IV 900 units/hr TITR SAUNDRA 18 mls/hr Administration Protocol 900 UNITS/HR Metoprolol Tartrate 25 mg 07/27/18 02:00 07/27/18 03:52 Lopressor PO 25 mg BID SAUNDRA Administration Ondansetron HCl 4 mg 07/27/18 01:34 Zofran IV Q8H PRN Nausea And Vomiting Sodium Chloride 10 ml 07/27/18 10:00 Sodium Chloride Flush Syringe 10 Ml IV BID SAUNDRA Sodium Chloride 10 ml 07/27/18 01:34 Sodium Chloride Flush Syringe 10 Ml IV PRN PRN LINE FLUSH
--- NOTE | 2018-07-27 11:52 | Consultation ---
History of Present Illness Consult date: 07/27/18 Consult reason: arrhythmia History of present illness: Patient is a 68-year old woman who presented to this palpitations, found with rapid atrial flutter. Patient reverted to sinus rhythm following intravenous diltiazem. Patient denies prior medical history, she is not taking any medications but reports she is undergoing outpatient workup for unexplained weight loss. TSH is normal and a repeat ECG is sinus rhythm, no acute ischemic changes. Cardiac consultation has been requested. Past History Past Medical History: No medical history Medications and Allergies Allergies Allergy/AdvReac Type Severity Reaction Status Date / Time Penicillins Allergy Hives Verified 06/30/18 10:56 Home Medications Medication Instructions Recorded Confirmed Last Taken Type No Known Home Medications [No 06/30/18 07/27/18 Unknown History Reported Home Medications] Active Meds: Active Medications Acetaminophen (Tylenol) 650 mg PO Q4H PRN PRN Reason: Pain MILD(1-3)/Fever >100.5/WHITESIDE Heparin Sodium/Sodium Chloride (Heparin/ 0.45% Nacl-25,000 Unit/500 Ml) 25,000 unit in 500 mls @ 18 mls/hr IV TITR [facility]; Protocol Last Admin: 07/27/18 03:48 Dose: 900 units/hr, 18 mls/hr Documented by: Metoprolol Tartrate (Lopressor) 25 mg PO BID [facility] Last Admin: 07/27/18 09:53 Dose: Not Given Documented by: Ondansetron HCl (Zofran) 4 mg IV Q8H PRN PRN Reason: Nausea And Vomiting Sodium Chloride (Sodium Chloride Flush Syringe 10 Ml) 10 ml IV BID [facility] Sodium Chloride (Sodium Chloride Flush Syringe 10 Ml) 10 ml IV PRN PRN PRN Reason: LINE FLUSH Physical Examination Vital Signs Temp Pulse Resp BP Pulse Ox 98.0 F 176 H 20 144/99 98 07/26/18 22:55 07/26/18 22:55 07/26/18 22:55 07/26/18 22:55 07/26/18 22:55 General appearance: no acute distress HEENT: Positive: PERRL Neck: Positive: trachea midline Cardiac: Positive: Reg Rate and Rhythm Lungs: Positive: Normal Breath Sounds Neuro: Positive: Grossly Intact Extremities: Absent: edema Results 07/27/18 01:59 07/26/18 23:13 Coagulation 07/26/18 07/27/18 Range/Units 23:13 01:59 PT 11.1 L 12.1 L (12.2-14.9) Sec. INR 0.83 L 0.92 (0.87-1.13) APTT 25.6 27.6 (24.2-36.6) Sec. CBC 07/26/18 07/27/18 Range/Units 23:13 01:59 WBC 7.2 (4.5-11.0) K/mm3 RBC 4.08 (3.65-5.03) M/mm3 Hgb 12.6 12.6 (10.1-14.3) gm/dl Hct 37.5 37.4 (30.3-42.9) % Plt Count 242 224 (140-440) K/mm3 Lymph # 3.5 (1.2-5.4) K/mm3 [place] # 0.5 (0.0-0.8) K/mm3 Eos # 0.2 (0.0-0.4) K/mm3 Baso # 0.0 (0.0-0.1) K/mm3 Comprehensive Metabolic Panel 07/26/18 Range/Units 23:13 Sodium 138 (137-145) mmol/L Potassium 4.1 (3.6-5.0) mmol/L Chloride 100.0 (98-107) mmol/L Carbon Dioxide 23 (22-30) mmol/L BUN 16 (7-17) mg/dL Creatinine 0.7 (0.7-1.2) mg/dL Glucose 122 H (65-100) mg/dL Calcium 9.6 (8.4-10.2) mg/dL Assessment and Plan - Patient Problems (1) Atrial flutter with rapid ventricular response Current Visit: Yes Status: Acute Plan to address problem: Atrial fibrillation, paroxysmal reverted to sinus rhythm on metoprolol for suppression on IV heparin drip
[2018-07-27] MEDS: ELIQUIS PO SCH ×2 (16:56→21:04)
[2018-07-27] MEDS: SODIUM CHLORIDE FLUSH SYRINGE 10 ML IV SCH ×2 (16:57→22:42)
[2018-07-27] MEDS: CARDIZEM PO SCH ×2 (18:28→22:41)
[2018-07-27] MEDS: TYLENOL PO PRN (22:43)
[2018-07-28] MEDS: CARDIZEM PO SCH ×2 (06:46→13:38)
--- NOTE | 2018-07-28 10:18 | Progress Note ---
Assessment and Plan Shortness of breath Normal echocardiogram No ischemic ECG changes on Nabor Protocol SVT on admission - resolved Telemetry is so far showing NSR Patient diagnosed with paroxysmal atrial flutter and started on eliquis therapy Recommendations: No further cardiac work-up is needed Will schedule patient for follow-up with Dr Henson (EP) A pulmonary evaluation is warranted for her shortness of breath as patient reports multiple incidences of bronchitis and chronic cough with sputum production Subjective Date of service: 07/28/18 Principal diagnosis: Shortness of breath Interval history: Patient underwent a TMST nabor protocol without complications Objective Vital Signs Temp Pulse Pulse Resp BP Pulse Ox 07/28/18 08:29 98.6 F 68 18 133/38 100 07/28/18 06:46 90 07/28/18 04:28 98.0 F 71 18 126/34 100 07/27/18 23:45 98.1 F 71 18 133/46 100 07/27/18 23:00 68 07/27/18 22:41 90 07/27/18 19:25 98.4 F 76 18 131/42 100 07/27/18 18:28 105/32 07/27/18 14:00 57 L 18 07/27/18 12:38 98.0 F 18 105/32 - Physical Examination HEENT: Positive: PERRL Neck: Positive: trachea midline Cardiac: Positive: Reg Rate and Rhythm Lungs: Positive: Normal Exam Neuro: Positive: Grossly Intact Extremities: Absent: edema - Imaging and Cardiology EKG: image reviewed (atrial flutter)
[2018-07-28] MEDS: ELIQUIS PO SCH (11:01)
[2018-07-28] MEDS: SODIUM CHLORIDE FLUSH SYRINGE 10 ML IV SCH (11:03)
--- NOTE | 2018-07-28 11:11 | Progress Note ---
Assessment and Plan Assessment and plan: Patient is a 68 yo woman without chronic medical problems who presented with palpitations and found to have SVT and Atrial flutter with RVR. Treated successfully after adenosine and converted with IV Cardizem. Patient was transition from iv heparin to po Eliquis. She refused Eliquis due to headaches. She really doesn't want any anticoagulation except for ASA based upon what her outpatient Boat Hoist Operator told her. She went for stress test and had SOB so d- dimer ordered and possible CTA chest r/o PE. Patient denies any chest pain, shortness breath, nausea/vomiting or severe headaches. Imaging, nursing note, chart, labs and old chart reviewed. Discussed with patient. D/W Boat Hoist Operator, Dr. Tellez, we reviewed her prior rhythm strip and she even had episode of Afib. Aflutter with RVR was evident after IV adenosine given on the rhythm strip. Atrial flutter with RVR: rate control, Echo, Cardiology consulted, on iv heparin drip for possible Cardioversion BYRD: get D-Dimer +/- CTA chest History Interval history: Patient was seen and examined. Follow-up on current diagnosis of Aflutter. Overnight events reported to me, patient refuse Eliquis due to headaches. She really doesn't want any anticoagulation except for ASA based upon what her outpatient Boat Hoist Operator told her. She went for stress test and had SOB so, d- dimer ordered and possible CTA chest r/o PE. Patient denies any chest pain, shortness breath, nausea/vomiting or severe headaches. Imaging, nursing note, chart, labs and old chart reviewed. Discussed with patient. D/W Boat Hoist Operator, Dr. Tellez, we reviewed her prior rhythm strips and she even had episode of Afib and Aflutter. The aflutter with RVR was evident after IV adenosine given on the rhythm strip. Hospitalist Physical - Physical exam Narrative exam: Gen: WDWN, NAD, Awake, Alert, Orientated HEENT: NCAT, EOMI, PERRL, OP Clear Neck: supple, no adenopathy, no thyromegaly, no JVD CVS/Heart: RRR, normal S1S2, pulses present bilaterally Chest/Lungs: CTA B, Symmetrical chest expansion, good air entry bilaterally GI/Abdomen: soft, NTND, good bowel sounds, no guarding or rebound /Bladder: no suprapubic tenderness, no CVA or paraspinal tenderness Extermity/Skin: no c/c/e, no obvious rash MSK: FROM x 4 Neuro: CN 2-12 grossly intact, no new focal deficits Psych: calm - Constitutional Vitals: Temp Pulse Resp BP Pulse Ox 98.6 F 68 18 144/48 100 07/28/18 08:29 07/28/18 08:29 07/28/18 08:29 07/28/18 10:10 07/28/18 08:29 General appearance: Present: no acute distress, well-nourished Results - Labs CBC & Chem 7: 07/27/18 01:59 07/26/18 23:13 Labs: Laboratory Last Values WBC 7.2 K/mm3 (4.5-11.0) 07/26/18 23:13 RBC 4.08 M/mm3 (3.65-5.03) 07/26/18 23:13 Hgb 12.6 gm/dl (10.1-14.3) 07/27/18 01:59 Hct 37.4 % (30.3-42.9) 07/27/18 01:59 MCV 92 fl (79-97) 07/26/18 23:13 MCH 31 pg (28-32) 07/26/18 23:13 MCHC 34 % (30-34) 07/26/18 23:13 RDW 13.0 % (13.2-15.2) L 07/26/18 23:13 Plt Count 224 K/mm3 (140-440) 07/27/18 01:59 Lymph % (Auto) 48.7 % (13.4-35.0) H 07/26/18 23:13 [place] % (Auto) 7.5 % (0.0-7.3) H 07/26/18 23:13 Eos % (Auto) 3.2 % (0.0-4.3) 07/26/18 23:13 Baso % (Auto) 0.6 % (0.0-1.8) 07/26/18 23:13 Lymph # 3.5 K/mm3 (1.2-5.4) 07/26/18 23:13 [place] # 0.5 K/mm3 (0.0-0.8) 07/26/18 23:13 Eos # 0.2 K/mm3 (0.0-0.4) 07/26/18 23:13 Baso # 0.0 K/mm3 (0.0-0.1) 07/26/18 23:13 Seg Neutrophils % 40.0 % (40.0-70.0) 07/26/18 23:13 Seg Neutrophils # 2.9 K/mm3 (1.8-7.7) 07/26/18 23:13 PT 12.1 Sec. (12.2-14.9) L 07/27/18 01:59 INR 0.92 (0.87-1.13) 07/27/18 01:59 APTT 27.6 Sec. (24.2-36.6) 07/27/18 01:59 Heparin Anti-Xa Level 0.38 U.I./ml (0.3-0.7) 07/27/18 10:06 Sodium 138 mmol/L (137-145) 07/26/18 23:13 Potassium 4.1 mmol/L (3.6-5.0) 07/26/18 23:13 Chloride 100.0 mmol/L (98-107) 07/26/18 23:13 Carbon Dioxide 23 mmol/L (22-30) 07/26/18 23:13 19 mmol/L 07/26/18 23:13 BUN 16 mg/dL (7-17) 07/26/18 23:13 0.7 mg/dL (0.7-1.2) 07/26/18 23:13 Estimated GFR > 60 ml/min 07/26/18 23:13 23 % 07/26/18 23:13 Glucose 122 mg/dL (65-100) H 07/26/18 23:13 Calcium 9.6 mg/dL (8.4-10.2) 07/26/18 23:13 Magnesium 1.90 mg/dL (1.7-2.3) 07/26/18 23:13 < 0.010 ng/mL (0.00-0.029) 07/27/18 05:36 TSH 1.490 mlU/mL (0.270-4.200) 07/26/18 23:13 Free T4 1.42 ng/dL (0.76-1.46) 06/19/19 23:13 Active Medications - Current Medications Current Medications: Generic Name Dose Route Start Last Admin Trade Name Freq PRN Reason Stop Dose Admin Acetaminophen 650 mg 07/27/18 01:34 07/27/18 22:43 Tylenol PO 650 mg Q4H PRN Administration Pain MILD(1-3)/Fever >100.5/WHITESIDE Apixaban 2.5 mg 07/27/18 14:00 07/28/18 11:01 Eliquis PO Not Given Q12HR SAUNDRA Protocol Diltiazem HCl 30 mg 07/27/18 14:00 07/28/18 06:46 Cardizem PO 30 mg Q8H SAUNDRA Administration Ondansetron HCl 4 mg 07/27/18 01:34 Zofran IV Q8H PRN Nausea And Vomiting Sodium Chloride 10 ml 07/27/18 10:00 07/28/18 11:03 Sodium Chloride Flush Syringe 10 Ml IV 10 ml BID SAUNDRA Administration Sodium Chloride 10 ml 07/27/18 01:34 Sodium Chloride Flush Syringe 10 Ml IV PRN PRN LINE FLUSH Nutrition/Malnutrition Assess - Dietary Evaluation Nutrition/Malnutrition Findings: Nutrition Notes Start: 07/27/18 09:26 Freq: Status: Active Protocol: Document 07/27/18 09:26 LP (Rec: 07/27/18 09:34 LP [id number]) Nutrition Notes Need for Assessment generated from: MD Order Initial or Follow up Assessment Other Pertinent Diagnosis Chest pain Current Diet Cardiac Labs/Tests Reviewed Pertinent Medications Reviewed Height 5 ft 7 in Weight 62.596 kg [place] Body Weight (kg) 61.36 BMI 21.6 Subjective/Other Information Consult for malnutrition. Pt states wt loss after getting sick and has not been able to gain wt. Pt unsure of UBW. Pt states she was drinkng boost TID at home and gradually went to less than one because of lack of appetite and feeling full. Pt had CT of abdomen. Pt states she has urge to use restroom but only having small BMs. Burn Absent Trauma Absent Minimum of two criteria Yes Energy Intake (non-severe) <75% Estimated Energy Requirement >7 days Body Fat Depletion Mild depletion (non-severe) Muscle Mass Mild Depletion (non-severe) #1 Nutrition Diagnosis Malnutrition Etiology decreased appetite and feeling full As Evidenced by Signs and Symptoms Pt states unknown wt loss, noted temporal wasting and fat and muscle mass depletion. Is patient on ventilator? No Is Patient Ambulatory and/or Out of Bed Yes REE-([facility]-ambulatory/OOB) [ [id number] [id number]] Calculation Used for Recommendations [facility] Additional Notes Protein needs are 75-94g (1.2- 1.5g/kg) Fluid needs are 1ml/kcal Nutrition Intervention Change Diet Order: Continue cardiac diet Add Supplement/Snack (indicate name/kcal Ensure Clear BID /protein ) Provides kCal: 480 Provides Protein (gm) 16 Teaching Recipient Patient Learning Readiness Good Teaching Methods Discussion,Handout Response to Teaching Verbalize understanding Education Handouts Provided increasing kcal and protein Barriers to Learning No Barriers RD phone number provided Yes Patient aware of follow up options Yes Goal #1 Meet at least 80% of kcal and protein needs Goal #2 Wt gain/maintenance Anticipated Discharge Needs: Cardiac diet Follow-Up By: 08/01/18 Additional Comments Follow for intakes, ONS tolerance
[2018-07-28] MEDS ORDERED: ELIQUIS PO SCH (12:00)
[2018-07-28 13:39] VITALS: BP 121/47
[2018-07-28] MEDS: TYLENOL PO PRN (14:41)
--- NOTE | 2018-07-28 15:57 | Treadmill Report ---
TREADMILL STRESS TEST ORDERING PHYSICIAN: Dr. Chio Holley. DESCRIPTION: The patient declined a nuclear perfusion scan and did accept to undergo a regular treadmill stress Rosalio protocol. The patient was brought to the stress lab. His baseline EKG was normal. The patient exercised for 4 minutes and 52 seconds on a Rosalio protocol. No ischemic EKG changes were recorded. Her peak heart rate achieved was 143 beats per minute, which is greater than 85% of the maximal age predicted heart rate. Her baseline blood pressure was 130/65 and her maximum blood pressure was 160/75. The patient did stop the test due to limiting shortness of breath, yet no ischemic EKG changes were recorded. IMPRESSION: 1. No ischemic EKG changes recorded. 2. Limiting shortness of breath, reason why the patient wanted to stop the test. 3. Adequate blood pressure response to exercise. JOB# [id number] JAIR/[place]
--- NOTE | 2018-07-28 16:24 | Discharge Summary ---
Providers - Providers Date of Admission: 07/27/18 01:34 Date of discharge: 07/28/18 Attending physician: NANCY CORONA 07/27/18 00:26 Consult to Physician [CONS] Urgent Comment: Dr. Nash spoke with Dr. Villarreal @ 0014 Consulting Provider: MELODY VILLARREAL Physician Instructions: Reason For Exam: SVT, aflutter 07/27/18 01:37 Consult to Dietitian/Nutrition [CONS] Routine Physician Instructions: Reason For Exam: Reason for Consult: Malnutrition Primary care physician: ROBBIE JARVIS Hospitalization Condition: Stable Hospital course: Patient is a 68 yo woman without chronic medical problems who presented with palpitations and found to have SVT and Atrial flutter with RVR. Treated successfully after adenosine and converted with IV Cardizem. Patient was transition from iv heparin to po Eliquis. She refused Eliquis due to headaches. She really doesn't want any anticoagulation except for ASA based upon what her outpatient Airplane Refueler told her. She went for stress test and had SOB so d- dimer ordered and possible CTA chest r/o PE. Patient denies any chest pain, shortness breath, nausea/vomiting or severe headaches. Imaging, nursing note, chart, labs and old chart reviewed. Discussed with patient. D/W Airplane Refueler, Dr. Carrington, we reviewed her prior rhythm strip and she even had episode of Afib. Aflutter with RVR was evident after IV adenosine given on the rhythm strip. Atrial flutter with RVR: rate control, Echo, Cardiology consulted, on iv heparin drip for possible Cardioversion BYRD: D-Dimer normal 5 cm Uterine mass on CT abd/pelvis with contrast outpatient report, testing done by Dr. Sarmiento, fibriod vs endo malignancy not excluded. Ordered transvaginal u/s at the instance of patient, told her that I would not be able follow it. Disposition: DC- TO HOME OR SELFCARE Time spent for discharge: 32 min Core Measure Documentation - Palliative Care Palliative Care/ Comfort Measures: Not Applicable - Core Measures Any of the following diagnoses?: none - VTE Discharge Requirements Deep Vein Thrombosis/Pulmonary Embolism Present on Admission: No Has pt received <5 days of overlap therapy or INR<2.0: No Anticoagulant overlap therapy prescribed at discharge: No Contraindication No Overlap Therapy order at DC: Not Indicated Exam - Physical Exam Narrative exam: Gen: WDWN, NAD, Awake, Alert, Orientated HEENT: NCAT, EOMI, PERRL, OP Clear Neck: supple, no adenopathy, no thyromegaly, no JVD CVS/Heart: RRR, normal S1S2, pulses present bilaterally Chest/Lungs: CTA B, Symmetrical chest expansion, good air entry bilaterally GI/Abdomen: soft, NTND, good bowel sounds, no guarding or rebound /Bladder: no suprapubic tenderness, no CVA or paraspinal tenderness Extermity/Skin: no c/c/e, no obvious rash MSK: FROM x 4 Neuro: CN 2-12 grossly intact, no new focal deficits Psych: calm - Constitutional Vitals: Temp Pulse Resp BP Pulse Ox 98.6 F 78 18 121/47 100 07/28/18 08:29 07/28/18 13:38 07/28/18 11:47 07/28/18 13:38 07/28/18 08:29 Plan Activity: other (no strenous activity unless cleared by PCP) Diet: low salt Follow up with: ROBBIE JARVIS MD [Primary Care Provider] - 7 Days GEORGE CARRINGTON MD [Staff Physician] - 7 Days Prescriptions: dilTIAZem [Cardizem] 30 mg PO Q8H #90 tablet Apixaban [Eliquis] 5 mg PO BID #60 tablet
--- NOTE | 2018-07-28 17:07 | Ultrasound Report ---
PROCEDURE: US PELVIC COMPLETE TECHNIQUE: Transabdominal and transvaginal grayscale and color-flow imaging of the pelvis was perfor med. HISTORY: uterine mass COMPARISONS: None FINDINGS: Transabdominal: The urinary bladder is mildly distended and unremarkable in appearance. The uterus measures 9.3 cm x 6.4 cm x 7.2 cm and is fibroid in appearance. The ovaries are not well visualized on the transabdominal study. Transvaginal: There is a small amount of fluid in the endometrium. Endometrial thickness measures 3 mm. There is demonstration of multiple uterine fibroids. The largest is in the fundus and posterior body and measures approximately 5.9 cm x 4 cm x 5.1 cm. Smaller fibroids in the posterior uterus measure 2.3 cm x 1.7 cm x 2 cm and 2.3 cm x 2.1 cm x 2 cm in size. The right ovary measures 1.8 cm x 1.9 cm x 2.2 cm and is unremarkable in appearance. Flow is demonstr ated in the right ovary utilizing color flow imaging. The left ovary measures 2.1 cm x 1.1 cm x 2.2 cm and is unremarkable in appearance. Flow is demonstra timothy in the left ovary utilizing color flow imaging. No free fluid is demonstrated in the pelvis. IMPRESSION: 1. Fibroid uterus. 2. Otherwise unremarkable study. This document is electronically signed by Peri Mccartney MD., July 28 2018 05:05:09 PM ET
== END 2018-07-28 18:14 | disposition home or self-care (01) | DRG 309 ==
LOC: ED 22:51 → 4A 07-27 01:34
PROVIDERS: ADMIT Internal Medicine; ATTEND Internal Medicine
DX: I48.92 Unspecified atrial flutter (principal); E44.1 Mild protein-calorie malnutrition; N85.9 Noninflammatory disorder of uterus, unspecified; I47.1 Supraventricular tachycardia; I48.0 Paroxysmal atrial fibrillation; Z88.0 Allergy status to penicillin; Z68.21 Body mass index [BMI] 21.0-21.9, adult
CPT/HCPCS: 36415; 71045; 76830; 76856; 80048; 83735; 84439; 84443; 84484; 85014; 85018; 85025; 85049; 85379; 85520; 85610; 85730; 93005; 93010; 93017; 93306; 96374; 99285; G0378; J0153; J1644; J7040

== ENCOUNTER 2018-10-09 10:02 | Inpatient (IN) | payer MEDICARE ==
[2018-10-09] MEDS ORDERED: LEVOPHED DRIP 4 MG/NS 250 ML IV ONE (10:06)
[2018-10-09] MEDS ORDERED: MAGNESIUM SULFATE 2GM/50ML 2 GM/50 ML BAG IV ONE ×2 (10:20→12:33)
[2018-10-09] MEDS ORDERED: NACL 0.9% 1000 ML 2,000 ML ONE (10:26)
[2018-10-09] MEDS: LEVOPHED DRIP 4 MG/NS 250 ML 4 MG/250 ML BAG IV SCH ×5 (10:30→23:04)
[2018-10-09] MEDS ORDERED: NACL 0.9% 1000 ML IV ONE (10:45)
[2018-10-09] MEDS ORDERED: SUBLIMAZE IV PRN (10:48)
[2018-10-09] MEDS ORDERED: NACL 0.9% 500 ML IV PRN (10:48)
[2018-10-09] MEDS ORDERED: VASELINE LIP THERAPY TP PRN (10:48)
[2018-10-09] MEDS ORDERED: VERSED IV PRN (10:48)
--- NOTE | 2018-10-09 10:50 | Emergency Department Report ---
ED General Adult HPI - General Chief complaint: Cardiac Arrest/CPR Stated complaint: CARDIAC ARREST Time Seen by Provider: 10/09/18 10:39 Source: EMS (verbal report received from EMS. EMS documentation not available at time of chart dictation ), RN notes reviewed, old records reviewed Mode of arrival: Stretcher Limitations: No Limitations - History of Present Illness Initial comments: This is a 68-year-old female. This patient is not known to this provider previously. History obtained from review of old medical records, and from review of prior d ocumentation. Apparently, patient recently admitted to [facility], for respiratory failure with hypoxia and hypercapnia, hyponatremia, leukemoid reaction, essential hypertension, and subclinical pneumothorax. Patient brought to the hospital by EMS for out of hospital cardiac arrest. EMS reports that they were called to find a patient who was not breathing, and initially in shockable rhythm, either V. fib or V. tach. EMS reports that the patient was shocked 1, and subsequently developed aPEA Patient had supraglottic airway placed, and the left lower extremity intrao sseous line placed. Patient received CPR, and standard ACLS medications. Exact time of transport is not known, and total downtime and pulselessness is not known. EMS verbally reported to myself approximately 45-55 minutes, family thinks may be closer to 30-35 minutes. Upon arrival to the ER, the patient is in a coma, receiving CPR. Shortly after arrival to the emergency room, pulses are obtained, and the patient remains in a coma. Supraglottic airway is removed, and the patient is intubated by myself. Patient demonstrated signs of shock, tachycardic and hypotensive, therefore, requires emergent sterile placement of right-sided internal jugular central line by myself, using ultrasound guidance, with one attempt, and no difficulty. [facility] not have a postarrest hypothermia protocol in place. We contacted cardiology assistant corporation counsel, Dr. Sharad Valera, and critical care physician on-call, Dr. Zia Felder, who agreed to follow in consultation. [facility] not have a hypothermia protocol. At this point in time, the patient is too labile and unstable and is not stable for transport at this time to another facility. Therefore, we are not able to initiate postarrest hypothermia protocol. Additional history is obtained from family, and from reviewing some of the patient's old medical records. Apparently, patient had recently been admitted to another hospital for hypercapnic respiratory failure and sepsis. Family reports the patient appeared to be knotting in and outs on previous evaluations, was found to have elevated carbon dioxide level. She may have a history of emphysema, it is unknown if she is compliant with CPAP or BiPAP. As per review of recent discharge summary, patient admitted to [facility] 09/26-10/04, intubated, for presumed hypercapnic respiratory failure, with concern for undiagnosed COPD or emphysematous disease. She was discharged, and then return to the emergency room, where pulmonology was consulted. Patient had an echocardiogram performed recently, which demonstrated an ejection fraction of 73%, with no wall motion abnormalities. In addition, as per prior documentation, patient was found to be falling asleep frequently in mid sentence, and has documented noncompliance with home CPAP for POLLY. In addition, the patient was counseled to follow up for outpatient pulmonary function testing for probable COPD, but was not able to follow up. She may also have a history of SVT versus a flutter. As per family, she is not really on systemic anticoagulation. Apparently, one of the prehospital emergency medicine personnel accidentally stuck himself with a needle in the field, and 1 of the patient's family members provided informed consent for empiric testing for blood borne diseases. -: Sudden Quality: other (patient intubated, nonverbal, therefore, not able to describe exacerbating or relieving factors.) - Related Data Previous Rx's Medication Instructions Recorded Last Taken Type Acetaminophen [Acetaminophen TAB] 325 mg PO Q4H PRN #15 tablet 07/28/18 Unknown Rx Apixaban [Eliquis] 5 mg PO BID #60 tablet 07/28/18 Unknown Rx dilTIAZem [Cardizem] 30 mg PO Q8H #90 tablet 07/28/18 Unknown Rx Allergies Allergy/AdvReac Type Severity Reaction Status Date / Time Penicillins Allergy Hives Verified 06/30/18 10:56 ED Review of Systems ROS: Stated complaint: CARDIAC ARREST Other details as noted in HPI Comment: Unobtainable due to pts medical conditions ED Past Medical Hx - Past Medical History Hx Hypertension: Yes Hx Congestive Heart Failure: No Hx Diabetes: No Hx GERD: Yes Hx Asthma: No Hx COPD: No Additional medical history: svt - Surgical History Past Surgical History?: No Additional Surgical History: Colonoscopy with polypectomy - Social History Smoking Status: Never Smoker - Medications Home Medications: Home Medications Medication Instructions Recorded Confirmed Last Taken Type Acetaminophen [Acetaminophen TAB] 325 mg PO Q4H PRN #15 tablet 07/28/18 Unknown Rx Apixaban [Eliquis] 5 mg PO BID #60 tablet 07/28/18 Unknown Rx dilTIAZem [Cardizem] 30 mg PO Q8H #90 tablet 07/28/18 Unknown Rx ED Physical Exam - General Limitations: Altered Mental Status General appearance: obtunded - Head Head exam: Present: atraumatic, normocephalic - Eye Eye exam: Present: other (pupils do not react to light) - ENT ENT exam: Present: normal orophraynx - Neck Neck exam: Present: normal inspection - Respiratory Respiratory exam: Present: respiratory distress. Absent: rales, rhonchi, stridor - Cardiovascular Cardiovascular Exam: Present: regular rate, tachycardia, irregular rhythm. Absent: systolic murmur, diastolic murmur - GI/Abdominal GI/Abdominal exam: Present: soft. Absent: distended, tenderness, guarding, rebound, rigid, pulsatile mass - Rectal Rectal exam: Present: normal inspection, other (chaperoned by nurse Thu Morocho) - External exam: Present: normal external exam, other (chaperoned by nurse Thu Robles) - Extremities Exam Extremities exam: Present: normal inspection, other (intraosseous line noted in the left lower extremity. 2+ femoral pulses noted bilaterally. The pelvis is stable. No long bony step-offs noted. Compartment soft.) - Back Exam Back exam: Present: normal inspection. Absent: tenderness, CVA tenderness (R), CVA tenderness (L), paraspinal tenderness, vertebral tenderness - Neurological Exam Neurological exam: Present: altered, other (GCS of 3) - Psychiatric Psychiatric exam: Present: other (patient is nonverbal) - Skin Skin exam: Present: dry ED Course Vital Signs 10/09/18 10/09/18 10/09/18 10:06 10:16 10:30 Pulse Rate 169 H 182 H 101 H Respiratory 20 13 20 Rate Blood Pressure 143/56 79/38 O2 Sat by Pulse Oximetry 10/09/18 10/09/18 10/09/18 10:46 10:49 11:00 Pulse Rate 81 75 84 Respiratory 21 20 Rate Blood Pressure 64/29 110/49 56/30 O2 Sat by Pulse 100 Oximetry 10/09/18 10/09/18 10/09/18 11:15 11:31 11:45 Pulse Rate 83 93 H 105 H Respiratory 18 19 30 H Rate Blood Pressure 110/49 113/44 56/30 O2 Sat by Pulse Oximetry 10/09/18 10/09/18 10/09/18 12:01 12:15 12:31 Pulse Rate 86 88 84 Respiratory 37 H 24 20 Rate Blood Pressure 56/30 93/68 100/46 O2 Sat by Pulse Oximetry 10/09/18 10/09/18 10/09/18 13:05 13:16 13:30 Pulse Rate 100 H 99 H 100 H Respiratory 16 30 H 8 L Rate Blood Pressure 115/46 80/28 114/45 O2 Sat by Pulse Oximetry 10/09/18 13:45 Pulse Rate 99 H Respiratory 22 Rate Blood Pressure 94/40 O2 Sat by Pulse Oximetry - Reevaluation(s) Reevaluation #1: 10/09/18 13:17 Differential diagnosis, including but not limited to: Hypercapnic respiratory failure, intracranial hemorrhage, pulmonary embolism, intra-abdominal hemorrhage, sepsis, respiratory failure, cardiac arrest Assessment and plan: 68-year-old female, multiple recent admissions for sepsis, respiratory failure, presenting today with respiratory failure, cardiac arrest, and return of spontaneous circulation. Patient still in a coma, requires mechanical ventilation, and vasopressor therapy. Patient started on IV fluids, active patient rewarming, antibiotic therapy, and norepinephrine. Cardiology, critical care consultations have been requested. Prognosis is guarded. Hospital physician, Dr. Mckeon, to admit patient to the medical service. Reevaluation #2: 10/09/18 13:38 CT scan of the chest demonstrate was no pulmonary embolism. Severe left lower lobe exam aspiration pneumonia suggested. CT scan of the abdomen and pelvis suggests adynamic ileus, left lower lobe pneumonia, otherwise, no significant acute disease. - Procedure Description Procedures done: Upon arrival to the emergency room, CPR supervised directly by myself. Please see nursing documentation and flow sheet - Central Line Placement Right IJ Consent Obtained: emergent situation Time Out Performed: Yes Patient Placed on Monitor/Pulse Ox: Yes MD Prep: mask, gown, gloves Central Line Prep: Chlorhexidine scrub Ultrasound Used for Placement: Yes Central Line Lumen Inserted: triple Bloods Obtained for Lab: Yes Central Line Position: good blood return, all ports aspirated, flus, sutured in place with 2-0 Dressing Applied: Tegaderm Post Procedure X-Ray: tip of catheter in good p Patient Tolerated Procedure: well, no complications Complications: none - Intubation Time Out Performed: No (jefry) Laryngoscope: fiberoptic video scope Size: 3 Assist Device Used: Bougie ET Tube Size: 7.5 Tube Secured Depth (cm): 23 Tube Secured Location: teeth Tube Placement Confirmation: visualized tube passing t, equal breath sounds bilat, no breath sounds over epi, confirmation by capnometr Patient Tolerated Procedure: well Intubation Complications: difficult intubation ED Medical Decision Making - Lab Data Result diagrams: 10/09/18 10:55 10/09/18 10:50 Vital Signs 10/09/18 10:49 Pulse Rate 75 Blood Pressure 110/49 O2 Sat by Pulse 100 Oximetry Vital Signs 10/09/18 10:49 Pulse Rate 75 Blood Pressure 110/49 O2 Sat by Pulse 100 Oximetry Lab Results 10/09/18 10/09/18 10/09/18 Range/Units 10:50 10:50 10:50 WBC (4.5-11.0) K/mm3 RBC (3.65-5.03) M/mm3 Hgb (10.1-14.3) gm/dl Hct (30.3-42.9) % MCV (79-97) fl MCH (28-32) pg MCHC (30-34) % RDW (13.2-15.2) % Plt Count (140-440) K/mm3 Seg Neutrophils % PT 16.6 H (12.2-14.9) Sec. INR 1.38 H (0.87-1.13) APTT 39.4 H (24.2-36.6) Sec. Sodium 139 (137-145) mmol/L Potassium 4.0 (3.6-5.0) mmol/L Chloride 90.3 L (98-107) mmol/L Carbon Dioxide 29 (22-30) mmol/L Anion Gap 24 mmol/L BUN 21 H (7-17) mg/dL Creatinine 0.7 (0.7-1.2) mg/dL Estimated GFR > 60 ml/min BUN/Creatinine Ratio 30 % Glucose 315 H (65-100) mg/dL Lactic Acid (0.7-2.0) mmol/L Calcium 9.2 (8.4-10.2) mg/dL Magnesium 3.70 H (1.7-2.3) mg/dL Total Bilirubin 0.30 (0.1-1.2) mg/dL AST 51 H (5-40) units/L ALT 67 H (7-56) units/L Alkaline Phosphatase 60 (35-129) units/L Total Creatine Kinase 171 H (30-135) units/L Troponin T < 0.010 (0.00-0.029) ng/mL Total Protein 5.3 L (6.3-8.2) g/dL Albumin 3.0 L (3.9-5) g/dL Albumin/Globulin Ratio 1.3 % Salicylates (2.8-20.0) mg/dL Acetaminophen (10.0-30.0) ug/mL Plasma/Serum Alcohol (0-0.07) % 10/09/18 10/09/18 10/09/18 Range/Units 10:50 10:50 10:50 WBC (4.5-11.0) K/mm3 RBC (3.65-5.03) M/mm3 Hgb (10.1-14.3) gm/dl Hct (30.3-42.9) % MCV (79-97) fl MCH (28-32) pg MCHC (30-34) % RDW (13.2-15.2) % Plt Count (140-440) K/mm3 Seg Neutrophils % PT (12.2-14.9) Sec. INR (0.87-1.13) APTT (24.2-36.6) Sec. Sodium (137-145) mmol/L Potassium (3.6-5.0) mmol/L Chloride (98-107) mmol/L Carbon Dioxide (22-30) mmol/L Anion Gap mmol/L BUN (7-17) mg/dL Creatinine (0.7-1.2) mg/dL Estimated GFR ml/min BUN/Creatinine Ratio % Glucose (65-100) mg/dL Lactic Acid (0.7-2.0) mmol/L Calcium (8.4-10.2) mg/dL Magnesium (1.7-2.3) mg/dL Total Bilirubin (0.1-1.2) mg/dL AST (5-40) units/L ALT (7-56) units/L Alkaline Phosphatase (35-129) units/L Total Creatine Kinase (30-135) units/L Troponin T (0.00-0.029) ng/mL Total Protein (6.3-8.2) g/dL Albumin (3.9-5) g/dL Albumin/Globulin Ratio % Salicylates < 0.3 L (2.8-20.0) mg/dL Acetaminophen < 5.0 L (10.0-30.0) ug/mL Plasma/Serum Alcohol < 0.01 (0-0.07) % 10/09/18 10/09/18 Range/Units 10:50 10:55 WBC 31.3 H (4.5-11.0) K/mm3 RBC 4.23 (3.65-5.03) M/mm3 Hgb 12.4 (10.1-14.3) gm/dl Hct 38.2 (30.3-42.9) % MCV 90 (79-97) fl MCH 29 (28-32) pg MCHC 33 (30-34) % RDW 13.0 L (13.2-15.2) % Plt Count 266 (140-440) K/mm3 Seg Neutrophils % [employer] PT (12.2-14.9) Sec. INR (0.87-1.13) APTT (24.2-36.6) Sec. Sodium (137-145) mmol/L Potassium (3.6-5.0) mmol/L Chloride (98-107) mmol/L Carbon Dioxide (22-30) mmol/L Anion Gap mmol/L BUN (7-17) mg/dL Creatinine (0.7-1.2) mg/dL Estimated GFR ml/min BUN/Creatinine Ratio % Glucose (65-100) mg/dL Lactic Acid 9.30 H* (0.7-2.0) mmol/L Calcium (8.4-10.2) mg/dL Magnesium (1.7-2.3) mg/dL Total Bilirubin (0.1-1.2) mg/dL AST (5-40) units/L ALT (7-56) units/L Alkaline Phosphatase (35-129) units/L Total Creatine Kinase (30-135) units/L Troponin T (0.00-0.029) ng/mL Total Protein (6.3-8.2) g/dL Albumin (3.9-5) g/dL Albumin/Globulin Ratio % Salicylates (2.8-20.0) mg/dL Acetaminophen (10.0-30.0) ug/mL Plasma/Serum Alcohol (0-0.07) % - EKG Data -: EKG Interpreted by Vt - EKG Data 10/09/18 13:15 EKG today shows an irregular rhythm, atrial fibrillation, with intermittent sinus beats, QTC prolonged, high left ventricular voltage, no endorsement of chest pain, normal axis, the EKG is abnormal, the EKG is not consistent with ST elevation myocardial infarction. - Radiology Data Radiology results: report reviewed, image reviewed rdering Physician: NATY WHITE MD Date of Service: 10/09/18 Procedure(s): XR chest 1V ap Accession Number(s): [id number] cc: NATY WHITE MD Fluoro Time In Minutes: CHEST 1 VIEW INDICATION / CLINICAL INFORMATION: et tube placement. COMPARISON: 07/26/2018 FINDINGS: SUPPORT DEVICES: Endotracheal tube, right central venous line HEART / MEDIASTINUM: No significant abnormality. LUNGS / PLEURA: No significant pulmonary or pleural abnormality. No pneumothorax. ADDITIONAL FINDINGS: No significant additional findings. IMPRESSION: Endotracheal tube is in good position. Right central venous line is present with the tip superimposed over the expected position of the superior vena cava. No evidence of a right-sided pneumothorax. Signer Name: Christiano Stevens MD FACR Signed: 10/09/2018 11:12 AM Workstation Name: [id number] Transcribed By: MS Dictated By: Christiano Stevens MD Electronically Authenticated By: Christiano Stevens MD Signed Date/Time: 10/09/[address] scan of the brain interpreted as negative for acute disease. Critical Care Time: Yes Critical care time in (mins) excluding proc time.: 120 Critical care attestation.: If time is entered above; I have spent that time in minutes in the direct care of this critically ill patient, excluding procedure time. ED Disposition Clinical Impression: Cardiac arrest, SIRS (systemic inflammatory response syndrome) Respiratory failure Qualifiers: Chronicity: unspecified Respiratory failure complication: unspecified whether with hypoxia or hypercapnia Qualified Code(s): J96.90 - Respiratory failure, unspecified, unspecified whether with hypoxia or hypercapnia Disposition: DC-09 OP ADMIT IP TO THIS HOSP Is pt being admited?: Yes Condition: Critical
[2018-10-09] MEDS ORDERED: VANCOMYCIN PHARMACY TO DOSE IV SCH (11:00)
[2018-10-09] MEDS ORDERED: MAXIPIME/NS 2 GM/100 ML 2 GM/100 ML BAG IV ONE (11:00)
[2018-10-09] MEDS ORDERED: fentaNYL DRIP Premix 2,000 MCG/100 ML BAG IV SCH (11:00)
[2018-10-09] MEDS ORDERED: VANCOMYCIN 1,500 MG in NACL 0.9% 500 ML 500 ML IV ONE (11:00)
[2018-10-09 11:15] LABS: INR 1.38 (0.87-1.13)
[2018-10-09 11:16] LABS: Partial Thromboplastin Time 39.4 Sec. (24.2-36.6)
--- NOTE | 2018-10-09 11:16 | XRay Report ---
CHEST 1 VIEW INDICATION / CLINICAL INFORMATION: et tube placement. COMPARISON: 07/26/2018 FINDINGS: SUPPORT DEVICES: Endotracheal tube, right central venous line HEART / MEDIASTINUM: No significant abnormality. LUNGS / PLEURA: No significant pulmonary or pleural abnormality. No pneumothorax. ADDITIONAL FINDINGS: No significant additional findings. IMPRESSION: Endotracheal tube is in good position. Right central venous line is present with the tip superimposed over the expected position of the superior vena cava. No evidence of a right-sided pneumothorax. Signer Name: Christiano Stevens MD FACAdilene Signed: 10/09/2018 11:12 AM Workstation Name: [id number]
[2018-10-09 11:24] LABS: Alanine Aminotransferase 67 units/L (7-56); BUN/Creatinine Ratio 30; Blood Urea Nitrogen 21 mg/dL (7-17); Calcium 9.2 mg/dL (8.4-10.2); Hemolysis Index 22
[2018-10-09 11:34] LABS: Hematocrit 38.2 % (30.3-42.9); Hemoglobin 12.4 gm/dl (10.1-14.3); Mean Corpuscular HGB Conc 33 % (30-34); Mean Corpuscular Volume 90 fl (79-97); Platelet Count 266 K/mm3 (140-440); Red Blood Count 4.23 M/mm3 (3.65-5.03)
[2018-10-09] MEDS ORDERED: HumuLIN R IV ONE (11:52)
[2018-10-09 12:26] LABS: Bilirubin,Urine NEG (Negative); Blood,Urine SM (Negative); Color,Urine Yellow (Yellow); Mucus,Urine FEW /HPF; Urobilinogen,Urine < 2.0 mg/dL (<2.0)
--- NOTE | 2018-10-09 12:38 | Consultation ---
CARDIOLOGY CONSULTATION REFERRING PHYSICIAN: Dr. Brownlee in the Emergency Room. REASON FOR CONSULTATION: Advice and opinion regarding out of hospital arrest. HISTORY OF PRESENT ILLNESS: I was called to see the patient due to out of hospital arrest. The patient was seen in the Emergency Room. She is intubated, nonresponsive, mildly hypotensive with blood pressure is in the 90s-100s systolic range, heart rates in the 90s. It looks like she is fluctuating between sinus and atrial fibrillation. She is entirely nonresponsive to noxious stimuli. I reviewed her record. She was recently discharged from [facility]. Apparently, she was there with hypercapnic hypoxemic respiratory failure. It appears that she was discharged on 10/04/2018 and yesterday, which would be 10/08/2018 with hypercapnic, hypoxemic respiratory failure. Some question of a small pneumothorax on admission, during her last admission there. Echocardiogram recently showed normal LV function, no valvulopathy. She was discharged on amlodipine, aspirin, omeprazole and prednisone. She has a history of obstructive sleep apnea and was on CPAP as well. She was treated with Levaquin and given a prednisone taper, CPAP at night. She was seen by Pulmonary and ICU doctors there. EKG as today reveals sinus rhythm, with fluctuating atrial fibrillation. No ST elevation. In reviewing the record, the patient with hospital arrest, unclear, appears to be PEA arrest. I have not seen any evidence of malignant ventricular rhythm. She is now on pressors. I spent at least 30 minutes of critical care time coordinating care. The patient discussed with Dr. Brownlee at length. PAST MEDICAL HISTORY: As aforementioned. REVIEW OF SYSTEMS: Unable to obtain at this time obviously. SOCIAL HISTORY: Nonsmoker, no alcohol. This is as per chart. FAMILY HISTORY: Hypertension. No documented surgical history. PHYSICAL EXAMINATION: VITAL SIGNS: As aforementioned. HEENT: Her pupils are fixed, dilated, nonresponsive. Per RN, she has not received any paralytic or sedative. LUNGS: Decreased breath sounds bilateral bases. Wheezing, poor air movement. CARDIOVASCULAR: Regular rhythm, S1, S2. ABDOMEN: Soft, nontender. EXTREMITIES: No edema. No rashes. SKIN: Warm, dry and intact. ABDOMEN: Soft, nontender, normoactive bowel sounds. IMAGING: EKG as aforementioned. LABORATORY DATA: Pending. ASSESSMENT: 1. In summary, the patient is a 68-year-old -Chinese female. 2. Status post out of hospital arrest with prolonged downtime. From discussing with multiple team members at multiple levels, it appears that her downtime is approximately 45-50 minutes. Return of spontaneous circulation here at [facility]. No malignant ventricular arrhythmias are noted, likely acute respiratory arrest, recent hospitalizations at [facility] noted and reviewed at length. Discussed with Dr. Brownlee. She is currently intubated on pressors. Discussed with family at length, will need hypothermia protocol, continue pressors. Recheck echocardiogram. Follow up on labs. Thank you, Dr. Brownlee for this consultation. We will follow along. We will follow closely. JOB# [id number] [place]
[2018-10-09 12:41] LABS: Basophils % (Manual) 0 % (0.0-1.8); Eosinophils % (Manual) 0 % (0.0-4.3); Monocytes % (Manual) 3.5 % (0.0-7.3); Myelocytes # (Manual) 0.2 K/mm3; Total Cells Counted 200
[2018-10-09 12:43] LABS: Anisocytosis 1+
--- NOTE | 2018-10-09 13:06 | History and Physical Report ---
History of Present Illness Chief complaint: Unresponsive History of present illness: 68 YO Female with HTN, GERD, SVT/Atrial Flutter on Therapeutic Anticoagulation presents to ED for evaluation. Pt is intubated, on vent support at time of my evaluation. Pt is unable to provide history. Pt history provided by family me mbers who are at bedside during exam and interview. As per family, The patient was found to unresponsive. EMS notified, and upon arrival the patient was found to be in Cardiac Arrest. Pt intubated and initiated on ACLS protocol. Pt transported to [facility]. Pt seen and evaluated in ED. Pt without perfusing cardiac rhythm for approximately 30 minutes as per staff. Pt found to have Sepsis, Acute Respiratory Failure with suspected Anoxic Brain Injury, Encephalopathy. Pt found to have poor prognosis. Critical Care team consulted in ED. Cardiology team consulted in ED. Pt initiated on Sepsis protocol and admitted to ICU. 35 minutes additional time spent providing bedside critical care management. 60 minutes dedicated to conducting Advanced care planning with family. Pt family acknowledge understanding and agreement with care plan. Prior admission on 07/27/18 reviewed. All listed medication reconciled at time of admission. Past History Past Medical History: atrial fib, GERD, hypertension Past Surgical History: Other (Colonscopy) Social history: . denies: smoking, alcohol abuse, prescription drug abuse Family history: hypertension Medications and Allergies Allergies Allergy/AdvReac Type Severity Reaction Status Date / Time Penicillins Allergy Hives Verified 06/30/18 10:56 Home Medications Medication Instructions Recorded Confirmed Last Taken Type Acetaminophen [Acetaminophen TAB] 325 mg PO Q4H PRN #15 tablet 07/28/18 Unknown Rx Apixaban [Eliquis] 5 mg PO BID #60 tablet 07/28/18 Unknown Rx dilTIAZem [Cardizem] 30 mg PO Q8H #90 tablet 07/28/18 Unknown Rx Active Meds: Active Medications Fentanyl (Sublimaze) 50 mcg IV Q10MIN PRN PRN Reason: ANALGESIA Hydrophilic Ointment (Vaseline Lip Therapy) 1 applic TP Q2HR PRN PRN Reason: Dry Lips Norepinephrine (Levophed Drip 4 Mg/Ns 250 Ml) 4 mg in 250 mls @ 7.5 mls/hr IV TITR SAUNDRA; Protocol Last Titration: 10/09/18 11:00 Dose: 8 mcg/min, 30 mls/hr Documented by: Fentanyl Citrate (Fentanyl Drip Premix) 2,000 mcg in 100 mls @ 3.561 mls/hr IV TITR SAUNDRA; Protocol Midazolam HCl 100 mg/ Sodium (Chloride) 100 mls @ 2 mls/hr IV TITR SAUNDRA; Protocol Vancomycin HCl (Vancomycin/Ns 1 Gm/250 Ml) 1 gm in 250 mls @ 166.667 mls/hr IV Q12H SAUNDRA Midazolam HCl (Versed) 2 mg IV Q10MIN PRN PRN Reason: Sedation Multi-Ingred Cream/Lotion/Oil/Oint (Artificial Tears Ophth Oint) 1 applic OU Q4HR PRN PRN Reason: Dry Eye(s) Sodium Chloride (Nacl 0.9% 500 Ml) 5 ml IV DIRECT PRN PRN 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 Absent: rub, click - Extremities Extremities: pulses symmetrical, No edema Peripheral Pulses: abnormal (capillary refill prolonged above 3.5 seconds) - Abdominal General gastrointestinal: Present: soft, non-tender, non-distended, normal bowel sounds Female genitourinary: Present: normal - Integumentary Integumentary: Present: clear, dry, clammy, decreased turgor - Musculoskeletal Musculoskeletal: generalized weakness - Psychiatric Psychiatric: no appropriate mood/affect, no intact judgment & insight, no memory intact - Neurologic Neurologic: no moves all extremities, no gait normal Results - Labs CBC & Chem 7: 10/09/18 10:55 10/09/18 10:50 Labs: Abnormal lab results 10/09/18 10/09/18 10/09/18 Range/Units 10:14 10:50 10:50 WBC (4.5-11.0) K/mm3 RDW (13.2-15.2) % Seg Neuts % (Manual) (40.0-70.0) % Lymphocytes % (Manual) (13.4-35.0) % Seg Neutrophils # Man (1.8-7.7) K/mm3 Monocytes # (Manual) (0.0-0.8) K/mm3 PT 16.6 H (12.2-14.9) Sec. INR 1.38 H (0.87-1.13) APTT 39.4 H (24.2-36.6) Sec. POC ABG pH (7.35-7.45) POC ABG pCO2 (35-45) POC ABG pO2 (80-105) Chloride 90.3 L (98-107) mmol/L BUN 21 H (7-17) mg/dL Glucose 315 H (65-100) mg/dL POC Glucose 344 H (70-105) Lactic Acid (0.7-2.0) mmol/L Magnesium (1.7-2.3) mg/dL AST 51 H (5-40) units/L ALT 67 H (7-56) units/L Total Creatine Kinase (30-135) units/L Total Protein 5.3 L (6.3-8.2) g/dL Albumin 3.0 L (3.9-5) g/dL Urine WBC (Auto) (0.0-6.0) /HPF Salicylates (2.8-20.0) mg/dL Acetaminophen (10.0-30.0) ug/mL 10/09/18 10/09/18 10/09/18 Range/Units 10:50 10:50 10:50 WBC (4.5-11.0) K/mm3 RDW (13.2-15.2) % Seg Neuts % (Manual) (40.0-70.0) % Lymphocytes % (Manual) (13.4-35.0) % Seg Neutrophils # Man (1.8-7.7) K/mm3 Monocytes # (Manual) (0.0-0.8) K/mm3 PT (12.2-14.9) Sec. INR (0.87-1.13) APTT (24.2-36.6) Sec. POC ABG pH (7.35-7.45) POC ABG pCO2 (35-45) POC ABG pO2 (80-105) Chloride (98-107) mmol/L BUN (7-17) mg/dL Glucose (65-100) mg/dL POC Glucose (70-105) Lactic Acid (0.7-2.0) mmol/L Magnesium 3.70 H (1.7-2.3) mg/dL AST (5-40) units/L ALT (7-56) units/L Total Creatine Kinase 171 H (30-135) units/L Total Protein (6.3-8.2) g/dL Albumin (3.9-5) g/dL Urine WBC (Auto) (0.0-6.0) /HPF Salicylates < 0.3 L (2.8-20.0) mg/dL Acetaminophen < 5.0 L (10.0-30.0) ug/mL 10/09/18 10/09/18 10/09/18 Range/Units 10:50 10:55 11:38 WBC 31.3 H (4.5-11.0) K/mm3 RDW 13.0 L (13.2-15.2) % Seg Neuts % (Manual) 91.5 H (40.0-70.0) % Lymphocytes % (Manual) 4.5 L (13.4-35.0) % Seg Neutrophils # Man 28.6 H (1.8-7.7) K/mm3 Monocytes # (Manual) 1.1 H (0.0-0.8) K/mm3 PT (12.2-14.9) Sec. INR (0.87-1.13) APTT (24.2-36.6) Sec. POC ABG pH 7.243 L (7.35-7.45) POC ABG pCO2 68.0 H (35-45) POC ABG pO2 389 H (80-105) Chloride (98-107) mmol/L BUN (7-17) mg/dL Glucose (65-100) mg/dL POC Glucose (70-105) Lactic Acid 9.30 H* (0.7-2.0) mmol/L Magnesium (1.7-2.3) mg/dL AST (5-40) units/L ALT (7-56) units/L Total Creatine Kinase (30-135) units/L Total Protein (6.3-8.2) g/dL Albumin (3.9-5) g/dL Urine WBC (Auto) (0.0-6.0) /HPF Salicylates (2.8-20.0) mg/dL Acetaminophen (10.0-30.0) ug/mL 10/09/18 Range/Units 12:12 WBC (4.5-11.0) K/mm3 RDW (13.2-15.2) % Seg Neuts % (Manual) (40.0-70.0) % Lymphocytes % (Manual) (13.4-35.0) % Seg Neutrophils # Man (1.8-7.7) K/mm3 Monocytes # (Manual) (0.0-0.8) K/mm3 PT (12.2-14.9) Sec. INR (0.87-1.13) APTT (24.2-36.6) Sec. POC ABG pH (7.35-7.45) POC ABG pCO2 (35-45) POC ABG pO2 (80-105) Chloride (98-107) mmol/L BUN (7-17) mg/dL Glucose (65-100) mg/dL POC Glucose (70-105) Lactic Acid (0.7-2.0) mmol/L Magnesium (1.7-2.3) mg/dL AST (5-40) units/L ALT (7-56) units/L Total Creatine Kinase (30-135) units/L Total Protein (6.3-8.2) g/dL Albumin (3.9-5) g/dL Urine WBC (Auto) 8.0 H (0.0-6.0) /HPF Salicylates (2.8-20.0) mg/dL Acetaminophen (10.0-30.0) ug/mL Assessment and Plan - Patient Problems (1) Sepsis Current Visit: Yes Status: Acute Qualifiers: Severe sepsis shock status: with septic shock Plan to address problem: Sepsis Protocol: Admit to ICU, IV pressor support with goal to achieve MAP greater than or equal to 60, IVF resuscitation therapy, monitor uop q shift, serial lactic acid, IV antibiotic therapy, CBC, CMP, Chest x ray, urinalysis. Critical care team consulted. Poor prognosis. The high probability of a clinically significant, sudden or life threatening deterioration of the [Neuro, Respiratory, Cardiac] system(s) required my full and direct attention, intervention and personal management. The aggregate critical care time was [95] minutes. This time is in addition to time spent performing reported procedures but includes the following: [x] Data Review and interpretation [x] Patient assessment and monitoring of vital signs [x] Documentation [x] Medication orders and management (2) Anoxic brain injury Current Visit: Yes Status: Acute Plan to address problem: S/P Cardiac Arrest: supportive care, serial neurologic exam, Repeat CT head if no neurologic changes/improvement. (3) Cardiac arrest Current Visit: Yes Status: Acute Plan to address problem: S/P ACLS protocol initiation with return of cardiac rhythm. Continue pressor support. Pt is Full Code. (4) Encephalopathy Current Visit: Yes Status: Acute Plan to address problem: CT Head, neuro check, supportive care, treat sepsis. (5) Respiratory failure Current Visit: Yes Status: Acute Qualifiers: Chronicity: unspecified Respiratory failure complication: unspecified whether with hypoxia or hypercapnia Qualified Code(s): J96.90 - Respiratory failure, unspecified, unspecified whether with hypoxia or hypercapnia Plan to address problem: Admit to ICU, wean vent as tolerated, supportive care, serial ABG, pulse oximetry, Pulmonary team consulted, daily SBT, Chest X ray. (6) DVT prophylaxis Current Visit: No Status: Acute Plan to address problem: SCD to BLE while in bed, continue therapeutic anticoagulation. (7) Advance care planning Current Visit: Yes Status: Acute Plan to address problem: 35 minutes dedicated to Advance care planning. Discussed likely outcome of septic shock, anoxic brain injury and concomitant respiratory failure, and end of life care. Pt family desires aggressive medical therapy. Pt has poor prog nosis. Pt oldest son is having very difficult time with patient illness. Pt son is prone to angry outbursts followed by tearful questioning.
[2018-10-09] MEDS ORDERED: SODIUM CHLORIDE FLUSH SYRINGE 10 ML IV PRN (13:07)
--- NOTE | 2018-10-09 13:15 | Cat Scan Report ---
CT head/brain wo con INDICATION: Altered mental status, cardiac arrest. TECHNIQUE: Routine CT head without contrast. All CT scans at this location are performed using CT dos e reduction for ALARA by means of automated exposure control. COMPARISON: Head CT on 04/04/2009. FINDINGS: BRAIN / INTRACRANIAL CONTENTS: No acute hemorrhage, mass effect, midline shift, or hydrocephalus. No appreciable acute large territorial or lacunar infarct. Rhoades-white differentiation appears maintained . ORBITS: No significant abnormality of visualized orbits. SINUSES / MASTOIDS: No significant abnormality of visualized sinuses and mastoid air cells. ADDITIONAL FINDINGS: None. IMPRESSION: 1. No acute intracranial abnormality. Signer Name: Omar Jasmine MD Signed: 10/09/2018 1:10 PM Workstation Name: [id number]
[2018-10-09] MEDS ORDERED: TYLENOL PO PRN (13:21)
--- NOTE | 2018-10-09 13:32 | Cat Scan Report ---
CTA CHEST WITH IV CONTRAST INDICATION: Acute onset chest pain with dyspnea. TECHNIQUE: Axial CT images were obtained through the chest after injection of 100 mL IV contrast. 3 plane MIP re constructions were produced. All CT scans at this location are performed using CT dose reduction for ALARA by means of automated exposure control. COMPARISON: None available. FINDINGS: PULMONARY ARTERIES: No pulmonary emboli. AORTA AND ARTERIES: No acute abnormality. MEDIASTINUM: No mass, lymphadenopathy or other significant abnormality. The heart is normal in size w ithout a pericardial effusion. The trachea and main bronchi are patent and normal in caliber. LUNGS: Large amount of aspiration type pneumonia identified throughout the dependent portion of the l eft lower lung. ADDITIONAL FINDINGS: None. UPPER ABDOMEN: No acute findings. BONES: No significant osseous abnormality. IMPRESSION: 1. No CT evidence for pulmonary embolism. 2. Severe aspiration pneumonia identified involving the left lower lung. Signer Name: Clark Barajas MD Signed: 10/09/2018 1:28 PM Workstation Name: [id number]
--- NOTE | 2018-10-09 13:36 | Cat Scan Report ---
CT ABDOMEN AND PELVIS WITH IV CONTRAST INDICATION: Diffuse abdominal pain following cardiac arrest. COMPARISON: None available. TECHNIQUE: Axial CT images were obtained through the abdomen and pelvis after 100 mL IV contrast. All CT scans a t this location are performed using CT dose reduction for ALARA by means of automated exposure contro l. FINDINGS -- ABDOMEN: Lung Bases: Severe left lower lobe airspace pneumonia. Liver: Fatty liver. Gallbladder: Normal. Bile Ducts: Normal. Pancreas: Normal. Spleen: Normal. Adrenals: Normal. Right Kidney and Proximal Ureter: Normal. Left Kidney and Proximal Ureter: Normal. Stomach and Bowel: Normal. Lymph Nodes: No significant adenopathy. Aorta: No significant abnormality. IVC: Normal. Additional Findings: None. FINDINGS -- PELVIS: Urinary Bladder and Distal Ureters: Normal. Reproductive Organs: Fibroid uterus. Appendix: Normal. Bowel: No acute abnormality. Free Fluid: None. Lymph Nodes: No significant adenopathy. Additional Findings: None. Skeletal System: No acute abnormality. IMPRESSION: Fibroid uterus, fatty liver and other incidental findings. No acute intra-abdominal findings are iden tified. Suspect mild adynamic ileus of the small bowel. Severe aspiration pneumonia of the left lower lobe. Signer Name: Clark Barajas MD Signed: 10/09/2018 1:32 PM Workstation Name: [email or web address]
[2018-10-09] MEDS ORDERED: LEVOPHED DRIP 4 MG/NS 250 ML 4 MG/250 ML BAG IV ONE ×2 (14:04→16:35)
[2018-10-09] MEDS ORDERED: fentaNYL DRIP Premix 0 MCG/0 ML BAG IV ONE (14:10)
[2018-10-09] MEDS ORDERED: SUBLIMAZE ONE (14:14)
[2018-10-09] MEDS: Vasostrict 20 UNIT in NACL 0.9% 100 ML IV SCH ×2 (14:29→23:07)
[2018-10-09] MEDS: MIDAZOLAM 100 MG in NACL 0.9% 80 ML IV SCH (14:34)
[2018-10-09] MEDS: CARDIZEM PO SCH ×2 (14:40→21:33)
[2018-10-09] MEDS ORDERED: LEVAQUIN 750MG/150ML 750 MG/150 ML BAG IV ONE (15:34)
[2018-10-09] MEDS: LEVAQUIN 750MG/150ML 750 MG/150 ML BAG IV SCH (15:38)
--- NOTE | 2018-10-09 16:03 | Consultation ---
History of Present Illness Consult date: 10/09/18 Requesting physician: JONY HE Reason for consult: other (Cardiopulmoanry arrest with ROSC) History of present illness: ED MD STAFF HISTORY Patient is unresponsive and on mechanical ventilatory support, I am unable to obtain a history. Discussed with ED physician 68 YO Female with HTN, GERD, SVT/Atrial Flutter on Therapeutic Anticoagulation presents to ED for evaluation. Pt is intubated, on vent support at time of my evaluation. Pt is unable to provide history. Pt history provided by family members who are at bedside during exam and interview. As per family, The patient was found to unresponsive. EMS notified, and upon arrival the patient was found to be in Cardiac Arrest. Pt intubated and initiated on ACLS protocol. Pt transported to [facility]. Pt seen and evaluated in ED. Pt without perfusing cardiac rhythm for approximately 30 minutes as per staff. Pt found to have Sepsis, Acute Respiratory Failure with suspected Anoxic Brain Injury, Encephalopathy. Pt found to have poor prognosis. Critical Care team consulted in ED. Pt initiated on Sepsis protocol and admitted to ICU. I have been consulted for critical care management Patient was seen and examined. Vitals,labs, imaging, medications and chart reviewed. Currently on vasopressor support, orally intubated and has myoclonic jerks Family at the bedside- 2 sons, a sister, family friend and niece Per family, the patient was discharge from [facility] for hypercapnic respiratory failure requiring CPAP support. The sons had placed her on CPAP and let her sleep- unsure how long it was before they found her unresponsive, they called 911 and initiated CPR. She has had multiple ER visits in the last few months Past medical history History of colonic polyps with mild bleeding after polypectomy Admisison in the past for chest pain and arrthymias Past surgical history Polypectomy with colonoscopy Social history No tobacco alcohol abuse or illicit drug use. Former Smoker (quit 1988) Lives at home Family history Son had a flutter requiring ablation Past History Past Medical History: atrial fib, GERD, hypertension Past Surgical History: Other (Colonscopy) Social history: . denies: smoking, alcohol abuse, prescription drug abuse Family history: hypertension Medications and Allergies Allergies Allergy/AdvReac Type Severity Reaction Status Date / Time Penicillins Allergy Hives Verified 06/30/18 10:56 Home Medications Medication Instructions Recorded Confirmed Last Taken Type Acetaminophen [Acetaminophen TAB] 325 mg PO Q4H PRN #15 tablet 07/28/18 10/10/18 Unknown Rx Apixaban [Eliquis] 5 mg PO BID #60 tablet 07/28/18 10/10/18 Unknown Rx dilTIAZem [Cardizem] 30 mg PO Q8H #90 tablet 07/28/18 10/10/18 Unknown Rx Active Meds: Active Medications Acetaminophen (Tylenol) 325 mg PO Q4H PRN PRN Reason: Pain MILD(1-3)/Fever >100.5/WHITESIDE Apixaban (Eliquis) 5 mg PO BID SAUNDRA; Protocol Diltiazem HCl (Cardizem) 30 mg PO Q8H SAUNDRA Last Admin: 10/09/18 14:40 Dose: Not Given Documented by: Fentanyl (Sublimaze) 50 mcg IV Q10MIN PRN PRN Reason: ANALGESIA Last Admin: 10/09/18 14:24 Dose: 50 mcg Documented by: Hydrophilic Ointment (Vaseline Lip Therapy) 1 applic TP Q2HR PRN PRN Reason: Dry Lips Norepinephrine (Levophed Drip 4 Mg/Ns 250 Ml) 4 mg in 250 mls @ 7.5 mls/hr IV TITR SAUNDRA; Protocol Last Admin: 10/09/18 15:27 Dose: 8 mcg/min, 30 mls/hr Documented by: Fentanyl Citrate (Fentanyl Drip Premix) 2,000 mcg in 100 mls @ 3.561 mls/hr IV TITR SAUNDRA; Protocol Midazolam HCl 100 mg/ Sodium (Chloride) 100 mls @ 2 mls/hr IV TITR SAUNDRA; Protocol Last Admin: 10/09/18 14:34 Dose: 2 mg/hr, 2 mls/hr Documented by: Vancomycin HCl (Vancomycin/Ns 1 Gm/250 Ml) 1 gm in 250 mls @ 166.667 mls/hr IV Q12H SAUNDRA Levofloxacin/Dextrose (Levaquin 750mg/150ml) 750 mg in 150 mls @ 100 mls/hr IV Q24H SAUNDRA; Protocol Last Admin: 10/09/18 15:38 Dose: 100 mls/hr Documented by: Vasopressin 20 unit/ Sodium (Chloride) 101 mls @ 9.09 mls/hr IV TITR SAUNDRA; Protocol Last Admin: 10/09/18 14:29 Dose: 0.03 units/min, 9.09 mls/hr Documented by: Midazolam HCl (Versed) 2 mg IV Q10MIN PRN PRN Reason: Sedation Multi-Ingred Cream/Lotion/Oil/Oint (Artificial Tears Ophth Oint) 1 applic OU Q4HR PRN PRN Reason: Dry Eye(s) Sodium Chloride (Nacl 0.9% 500 Ml) 5 ml IV DIRECT PRN PRN 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 Sodium Chloride (Sodium Chloride Flush Syringe 10 Ml) 10 ml IV BID SAUNDRA Sodium Chloride (Sodium Chloride Flush Syringe 10 Ml) 10 ml IV PRN PRN PRN Reason: LINE FLUSH Physical Examination Vital signs: Vital Signs Pulse Resp 169 H 20 10/09/18 10:06 10/09/18 10:06 Reviewed General appearance: appears uncomfortable, other (tacypnic with myoclonic jerks) Eyes: non-icteric ENT: oropharynx moist, other (ETT at 23cm to MVS) Neck: supple, no lymphadenopathy Effort: mildly labored Ascultation: Bilateral: diminished breath sounds, rhonchi Cardiovascular: other (irregular, tacycardia, S1,S2) Gastrointestinal: normoactive bowel sounds, soft, non-tender, non-distended Integumentary: normal Extremities: no cyanosis, no edema, pink and warm, pulses normal Musculoskeletal: no deformities unable to assess, other (osturing on painful stiuli, Pupils are pin-point minimally reactive) other (unalble to assess) Results - Laboratory Findings CBC and BMP: 10/10/18 07:54 10/10/18 07:54 ABG POC ABG pH 7.243 (7.35-7.45) L 10/09/18 11:38 POC ABG pCO2 68.0 (35-45) H 10/09/18 11:38 POC ABG pO2 389 (80-105) H 10/09/18 11:38 POC ABG HCO3 29.4 (22-26 mml/L) 10/09/18 11:38 POC ABG Total CO2 31 (23-27mmol/L) 10/09/18 11:38 POC ABG O2 Sat 100 10/09/18 11:38 PT/INR, D-dimer PT 16.6 Sec. (12.2-14.9) H 10/09/18 10:50 INR 1.38 (0.87-1.13) H 10/09/18 10:50 Abnormal lab findings: Abnormal Labs 10/09/18 10/09/18 10/09/18 10:14 10:50 10:50 WBC RDW Seg Neuts % (Manual) Lymphocytes % (Manual) Seg Neutrophils # Man Monocytes # (Manual) PT 16.6 H INR 1.38 H APTT 39.4 H POC ABG pH POC ABG pCO2 POC ABG pO2 Chloride 90.3 L BUN 21 H Glucose 315 H POC Glucose 344 H Lactic Acid Magnesium AST 51 H ALT 67 H Total Creatine Kinase Total Protein 5.3 L Albumin 3.0 L Urine WBC (Auto) Salicylates Acetaminophen 10/09/18 10/09/18 10/09/18 10:50 10:50 10:50 WBC RDW Seg Neuts % (Manual) Lymphocytes % (Manual) Seg Neutrophils # Man Monocytes # (Manual) PT INR APTT POC ABG pH POC ABG pCO2 POC ABG pO2 Chloride BUN Glucose POC Glucose Lactic Acid Magnesium 3.70 H AST ALT Total Creatine Kinase 171 H Total Protein Albumin Urine WBC (Auto) Salicylates < 0.3 L Acetaminophen < 5.0 L 10/09/18 10/09/18 10/09/18 10:50 10:55 11:38 WBC 31.3 H RDW 13.0 L Seg Neuts % (Manual) 91.5 H Lymphocytes % (Manual) 4.5 L Seg Neutrophils # Man 28.6 H Monocytes # (Manual) 1.1 H PT INR APTT POC ABG pH 7.243 L POC ABG pCO2 68.0 H POC ABG pO2 389 H Chloride BUN Glucose POC Glucose Lactic Acid 9.30 H* Magnesium AST ALT Total Creatine Kinase Total Protein Albumin Urine WBC (Auto) Salicylates Acetaminophen 10/09/18 10/09/18 12:12 15:28 WBC RDW Seg Neuts % (Manual) Lymphocytes % (Manual) Seg Neutrophils # Man Monocytes # (Manual) PT INR APTT POC ABG pH POC ABG pCO2 POC ABG pO2 Chloride BUN Glucose POC Glucose 173 H Lactic Acid Magnesium AST ALT Total Creatine Kinase Total Protein Albumin Urine WBC (Auto) 8.0 H Salicylates Acetaminophen - Diagnostic Findings Chest x-ray: image reviewed (RIJ, ETT in position, no acute infiltrates) CT scan - chest: image reviewed (LLL infiltrate no PE) Additional studies: CT head- no acute mass, shift or bleed Assessment and Plan s/p cardiopulmonary arrest-OOH with ROSC Acute hyoxemic respiratory failure on MVS Acute hypercapnic respiratory failure Acute encephalopathy- metabolic Sepsis Aspiration pneumonia LLL Myoclonic jerks, post arrest Atrial fibrillation with RVR -VAP bundle addressed -Unable to initiate hypothermia protocol -Wean vasopressor support for MAP>65 -Daily SAT and SBT -Supplemental O2 to keep O2 sats >94 -Adjust minute ventilation for better gas exchange, follow up ABG -Am CXR and ABG -Transthoracic echocardiogram, post arrest -VTE prophylaxis -Stress ulcer prophylaxis -Place OGT for nutrition and oral medications -Initiate tube feeding in the morning, accucheck with glycemic control, target blood glucose 140-180mg/dL -MRI in the morning to evaluate for anoxia -EEG, with Neurology consult -Antibiotics for aspiration pneumonia--MRSA and GNR coverage, patient has been in the hospital multiple times in the last 90days -Aspiration precautions, HOB >40 -Chronic home medications -Midazolam for sedation and seizure management, initiate Keppra- Neurology consult -Mobility for pressure ulcer prevention -Critical care bundles addressed -Seizure precautions 20 minutes dedicated to Advance care planning. Discussed likely outcome of outof hosipta cardiac arrest; anoxic brain injury and concomitant respiratory failure, and end of life care. Patient family desires aggressive medical therapy. Patient's oldest son is struggling with the fact that she was discharged from the hospital the day before and this happened. CONDITION: CRITICAL PROGNOSIS: GUARDED TO GRAVE CODE STATUS: FULL CODE The high probability of a clinically significant, sudden or life threatening deterioration of the [Neurology Respiratory, Cardiovascular] system(s) required my full and direct attention, intervention and personal management. The aggr egate critical care time was [75] minutes. This time is in addition to time spent performing reported procedures but includes the following: [x] Data Review and interpretation [x] Patient assessment and monitoring of vital signs [x] Documentation [x] Medication orders and management
[2018-10-09] MEDS ORDERED: NACL 0.9% 1000 ML 1,000 ML IV ONE (16:18)
[2018-10-09] MEDS ORDERED: NACL 0.9% 1000 ML 1,000 ML ONE (16:19)
[2018-10-09] MEDS: NACL 0.9% 1000 ML 1,000 ML IV SCH (18:29)
[2018-10-09] MEDS: ARTIFICIAL TEARS OPHTH OINT OU PRN (18:29)
--- NOTE | 2018-10-09 18:41 | XRay Report ---
Abdomen single view INDICATION: Abdominal pain IMPRESSION: The esophagogastric tube terminates within the distal body of the stomach. Signer Name: Clark Barajas MD Signed: 10/09/2018 6:37 PM Workstation Name: [email or web address]
[2018-10-09] MEDS: ELIQUIS PO SCH (21:32)
[2018-10-09] MEDS: PEPCID IV SCH (21:32)
[2018-10-09] MEDS: SODIUM CHLORIDE FLUSH SYRINGE 10 ML IV SCH (21:34)
[2018-10-10] MEDS: TYLENOL PR PRN (00:34)
--- NOTE | 2018-10-10 02:47 | XRay Report ---
CHEST 1 VIEW 10/10/2018 2:18 AM INDICATION / CLINICAL INFORMATION: follow up respiratory failure. COMPARISON: Chest x-ray 10/09/2018 FINDINGS: SUPPORT DEVICES: New NG tube enters stomach. ET tube and right internal drainage central venous line again project in expected position. HEART / MEDIASTINUM: No significant abnormality. LUNGS / PLEURA: Airspace consolidation within medial aspect of left lower lobe has slightly improved characteristic for resolving pneumonia. Right lung remains clear. No pneumothorax. ADDITIONAL FINDINGS: No significant additional findings. IMPRESSION: 1. Resolving left lower lobe pneumonia Signer Name: Gurmeet Nelson MD Signed: 10/10/2018 2:42 AM Workstation Name: [email or web address]
[2018-10-10] MEDS: CARDIZEM PO SCH ×4 (06:15→23:12)
[2018-10-10] MEDS: NACL 0.9% 1000 ML 1,000 ML IV SCH (06:15)
[2018-10-10 08:48] LABS: Hematocrit 35.4 % (30.3-42.9); Hemoglobin 11.8 gm/dl (10.1-14.3); Mean Corpuscular HGB Conc 33 % (30-34); Mean Corpuscular Volume 90 fl (79-97); Platelet Count 235 K/mm3 (140-440); Red Blood Count 3.94 M/mm3 (3.65-5.03); Red Cell Distribution Width 13.2 % (13.2-15.2)
[2018-10-10 09:05] LABS: BUN/Creatinine Ratio 39; Blood Urea Nitrogen 31 mg/dL (7-17); Calcium 9.3 mg/dL (8.4-10.2); Hemolysis Index 4
[2018-10-10] MEDS: PEPCID IV SCH (09:29)
[2018-10-10] MEDS: ELIQUIS PO SCH ×2 (09:29→23:12)
[2018-10-10] MEDS: SODIUM CHLORIDE FLUSH SYRINGE 10 ML IV SCH ×2 (09:30→23:15)
--- NOTE | 2018-10-10 09:44 | Progress Note ---
Assessment and Plan Optimize BPs and HR - increase cardizem to 60mg Q6H. Can also consider addition of BB if necessary. Await echo. Pt with suspected anoxic brain injury. Overall poor prognosis. The patient has been seen in conjunction with Dr. Laird who agrees with the assessment and plan of care. - Patient Problems (1) Cardiac arrest Current Visit: Yes Status: Acute (2) Acute respiratory failure Current Visit: Yes Status: Acute (3) Pneumonia Current Visit: Yes Status: Acute (4) Lactic acid acidosis Current Visit: Yes Status: Acute (5) Altered mental status Current Visit: Yes Status: Acute (6) Paroxysmal atrial fibrillation Current Visit: Yes Status: Chronic (7) HTN (hypertension) Current Visit: Yes Status: Chronic (8) Elevated LFTs Current Visit: Yes Status: Acute (9) Sleep apnea Current Visit: Yes Status: Chronic Subjective Date of service: 10/10/18 Principal diagnosis: cardiac arrest Interval history: pt remains intubated, unresponsive, sedated. not on vasopressors, currently hypertensive. in ST HR 120s on telemetry. sister at bedside. Objective Last Vital Signs Temp 98.5 F 10/10/18 08:00 Pulse 121 H 10/10/18 08:34 Resp 20 10/10/18 08:34 BP 141/82 10/10/18 08:34 Pulse Ox 92 10/10/18 08:34 - Physical Examination General: Other (intubated, unresponsive) Cardiac: Positive: Regular Rhythm, S1/S2, Tachycardia Lungs: Positive: Decreased Breath Sounds, Ventilated Respirations Neuro: Positive: Other (intubated, unresponsive) Skin: Negative: Rash Extremities: Absent: edema - Labs and Meds Cardiac Enzymes 10/09/18 Range/Units 10:50 AST 51 H (5-40) units/L Coagulation 10/09/18 Range/Units 10:50 PT 16.6 H (12.2-14.9) Sec. INR 1.38 H (0.87-1.13) APTT 39.4 H (24.2-36.6) Sec. CBC 10/09/18 10/10/18 Range/Units 10:55 07:54 WBC 31.3 H 38.6 H (4.5-11.0) K/mm3 RBC 4.23 3.94 (3.65-5.03) M/mm3 Hgb 12.4 11.8 (10.1-14.3) gm/dl Hct 38.2 35.4 (30.3-42.9) % Plt Count 266 235 (140-440) K/mm3 Comprehensive Metabolic Panel 10/09/18 10/10/18 Range/Units 10:50 07:54 Sodium 139 143 (137-145) mmol/L Potassium 4.0 4.0 (3.6-5.0) mmol/L Chloride 90.3 L 104.2 (98-107) mmol/L Carbon Dioxide 29 29 (22-30) mmol/L BUN 21 H 31 H (7-17) mg/dL Creatinine 0.7 0.8 (0.7-1.2) mg/dL Glucose 315 H 124 H (65-100) mg/dL Calcium 9.2 9.3 (8.4-10.2) mg/dL AST 51 H (5-40) units/L ALT 67 H (7-56) units/L Alkaline Phosphatase 60 (35-129) units/L Total Protein 5.3 L (6.3-8.2) g/dL Albumin 3.0 L (3.9-5) g/dL - Imaging and Cardiology EKG: report reviewed, image reviewed Echo: pending - Telemetry EKG Rhythm: Sinus Tachycardia
--- NOTE | 2018-10-10 09:48 | Progress Note ---
Assessment and Plan s/p cardiopulmonary arrest-OOH with ROSC Acute hyoxemic respiratory failure on MVS Acute hypercapnic respiratory failure Acute encephalopathy- metabolic Sepsis Aspiration pneumonia LLL Myoclonic jerks, post arrest Atrial fibrillation with RVR [place] MRI Address HR and blood pressure control- resume hoe diltiazem dosing MRI for today, then will need to meet with family to re-address goals of care. -VAP bundle addressed -Daily SAT and SBT -Supplemental O2 to keep O2 sats >94 -Am ABG -Transthoracic echocardiogram, post arrest( pending) -VTE prophylaxis -Stress ulcer prophylaxis -Continue OGT for nutrition and oral medications - Tube feeding for nutritional support; accucheck with glycemic control, target blood glucose 140-180mg/dL -EEG, with Neurology consult -Antibiotics for aspiration pneumonia--MRSA and GNR coverage, patient has been in the hospital multiple times in the last 90days -Aspiration precautions, HOB >40 -Chronic home medications -Midazolam for sedation and seizure management, initiate Keppra- Neurology consult -Mobility for pressure ulcer prevention -Critical care bundles addressed -Seizure precautions CONDITION: CRITICAL PROGNOSIS: GUARDED TO GRAVE CODE STATUS: FULL CODE The high probability of a clinically significant, sudden or life threatening deterioration of the [Neurology Respiratory, Cardiovascular] system(s) required my full and direct attention, intervention and personal management. The aggregate critical care time was [35] minutes. This time is in addition to time spent performing reported procedures but includes the following: [x] Data Review and interpretation [x] Patient assessment and monitoring of vital signs [x] Documentation [x] Medication orders and management Subjective Date of service: 10/10/18 Principal diagnosis: cardiac arrest Interval history: Follow up for: OOH cardiac arrest with ROSC; acute hypoxic-hypercapnic respiratory failure; myoclonic jerks; acute metabolic encephalopathy Seen ad examined. 24 hour events reviewed. Vitasl, labs, medications, chart and imaging reviewed. Discussed in ICU-IDT rounds. Off vasopressor support Hypertensive this morning, otherwise remains unresponsive, low grade temps, remains encephaloapthic- midazolam was turned off this morning for SAT Objective - Exam Narrative Exam: Reviewed General appearance: appears uncomfortable, other (tachypnic with myoclonic jerks) Eyes: non-icteric ENT: oropharynx moist, other [place] 23[place] [facility] [place] Neck: supple, no lymphadenopathy Effort: mildly labored Ascultation: Bilateral: diminished breath sounds, rhonchi Cardiovascular: other (irregular, tachycardia, S1,S2) Gastrointestinal: normoactive bowel sounds, soft, non-tender, non-distended Integumentary: normal Extremities: no cyanosis, no edema, pink and warm, pulses normal Musculoskeletal: no deformities unable to assess, other (posturing on painful stimuli, Pupils are pin-point minimally reactive) other (unable to assess) Vital Signs - 12hr 10/09/18 10/09/18 10/09/18 21:50 22:00 22:10 Temperature Pulse Rate 114 H 107 H 110 H Pulse Rate [ 107 H From Monitor] Respiratory 17 18 18 Rate Blood Pressure 137/58 135/57 135/57 O2 Sat by Pulse 100 100 100 Oximetry 10/09/18 10/09/18 10/09/18 22:20 22:30 22:40 Temperature Pulse Rate 108 H 110 H 110 H Pulse Rate [ From Monitor] Respiratory 18 18 18 Rate Blood Pressure 118/59 139/53 139/53 O2 Sat by Pulse 100 100 100 Oximetry 10/09/18 10/09/18 10/09/18 22:50 22:57 23:00 Temperature Pulse Rate 109 H 107 H 106 H Pulse Rate [ From Monitor] Respiratory 18 18 18 Rate Blood Pressure 131/60 131/60 148/62 O2 Sat by Pulse 100 100 100 Oximetry 10/09/18 10/09/18 10/09/18 23:10 23:15 23:20 Temperature 99.7 F H Pulse Rate 111 H 108 H Pulse Rate [ From Monitor] Respiratory 18 18 Rate Blood Pressure 148/62 122/46 O2 Sat by Pulse 100 100 Oximetry 10/09/18 10/09/18 10/09/18 23:25 23:30 23:40 Temperature Pulse Rate 131 H 106 H 129 H Pulse Rate [ From Monitor] Respiratory 18 19 Rate Blood Pressure 113/56 113/56 113/56 O2 Sat by Pulse 100 100 100 Oximetry 10/09/18 10/10/18 10/10/18 23:50 00:00 00:10 Temperature Pulse Rate 140 H 141 H 135 H Pulse Rate [ 130 H From Monitor] Respiratory 30 H 18 17 Rate Blood Pressure 166/73 130/58 130/58 O2 Sat by Pulse 100 100 100 Oximetry 10/10/18 10/10/18 10/10/18 00:20 00:30 00:40 Temperature Pulse Rate 133 H 133 H 135 H Pulse Rate [ From Monitor] Respiratory 18 19 36 H Rate Blood Pressure 130/58 113/53 113/53 O2 Sat by Pulse 100 100 100 Oximetry 10/10/18 10/10/18 10/10/18 00:50 01:00 01:10 Temperature Pulse Rate 133 H 130 H 130 H Pulse Rate [ From Monitor] Respiratory 19 18 18 Rate Blood Pressure 135/54 110/39 110/39 O2 Sat by Pulse 100 100 100 Oximetry 10/10/18 10/10/18 10/10/18 01:20 01:30 01:40 Temperature Pulse Rate 124 H 118 H 115 H Pulse Rate [ From Monitor] Respiratory 18 18 18 Rate Blood Pressure 83/47 83/41 83/41 O2 Sat by Pulse 100 100 100 Oximetry 10/10/18 10/10/18 10/10/18 01:50 02:00 02:10 Temperature Pulse Rate 112 H 111 H 111 H Pulse Rate [ From Monitor] Respiratory 18 18 18 Rate Blood Pressure 91/47 94/52 94/52 O2 Sat by Pulse 100 100 100 Oximetry 10/10/18 10/10/18 10/10/18 02:20 02:30 02:40 Temperature Pulse Rate 109 H 111 H 108 H Pulse Rate [ From Monitor] Respiratory 18 18 18 Rate Blood Pressure 96/57 115/56 115/56 O2 Sat by Pulse 100 100 100 Oximetry 10/10/18 10/10/18 10/10/18 02:50 03:00 03:10 Temperature Pulse Rate 109 H 101 H 103 H Pulse Rate [ From Monitor] Respiratory 18 18 18 Rate Blood Pressure 88/43 144/42 144/42 O2 Sat by Pulse 100 100 100 Oximetry 10/10/18 10/10/18 10/10/18 03:20 03:30 03:40 Temperature Pulse Rate 104 H 101 H 104 H Pulse Rate [ From Monitor] Respiratory 18 18 18 Rate Blood Pressure 130/69 117/62 117/62 O2 Sat by Pulse 100 100 100 Oximetry 10/10/18 10/10/18 10/10/18 03:41 03:50 04:00 Temperature 99.4 F Pulse Rate 107 H 107 H Pulse Rate [ 117 H From Monitor] Respiratory 18 18 Rate Blood Pressure 144/69 109/57 O2 Sat by Pulse 100 100 Oximetry 10/10/18 10/10/18 10/10/18 04:10 04:11 04:20 Temperature Pulse Rate 105 H 103 H 107 H Pulse Rate [ From Monitor] Respiratory 18 12 Rate Blood Pressure 109/57 109/57 109/56 O2 Sat by Pulse 100 100 100 Oximetry 10/10/18 10/10/18 10/10/18 04:30 04:40 04:50 Temperature Pulse Rate 102 H 105 H 106 H Pulse Rate [ From Monitor] Respiratory 12 12 12 Rate Blood Pressure 136/66 136/66 145/63 O2 Sat by Pulse 100 100 100 Oximetry 10/10/18 10/10/18 10/10/18 05:00 05:10 05:20 Temperature Pulse Rate 115 H 119 H 116 H Pulse Rate [ From Monitor] Respiratory 24 19 12 Rate Blood Pressure 172/71 172/71 163/65 O2 Sat by Pulse 100 100 100 Oximetry 10/10/18 10/10/18 10/10/18 05:30 05:40 05:50 Temperature Pulse Rate 117 H 119 H 117 H Pulse Rate [ From Monitor] Respiratory 13 22 13 Rate Blood Pressure 147/68 163/65 135/61 O2 Sat by Pulse 100 100 100 Oximetry 10/10/18 10/10/18 10/10/18 06:00 06:10 06:15 Temperature Pulse Rate 119 H 120 H 115 H Pulse Rate [ From Monitor] Respiratory 17 29 H Rate Blood Pressure 150/67 150/67 142/53 O2 Sat by Pulse 100 100 Oximetry 10/10/18 10/10/18 10/10/18 06:20 06:30 06:40 Temperature Pulse Rate 121 H 122 H 124 H Pulse Rate [ From Monitor] Respiratory 18 16 18 Rate Blood Pressure 142/63 146/65 146/65 O2 Sat by Pulse 100 100 100 Oximetry 10/10/18 10/10/18 10/10/18 06:50 07:00 07:10 Temperature Pulse Rate 122 H 123 H 121 H Pulse Rate [ From Monitor] Respiratory 30 H 14 15 Rate Blood Pressure 155/69 141/70 141/70 O2 Sat by Pulse 100 100 100 Oximetry 10/10/18 10/10/18 10/10/18 07:20 07:30 07:40 Temperature Pulse Rate 123 H 124 H 120 H Pulse Rate [ From Monitor] Respiratory 15 20 15 Rate Blood Pressure 137/67 155/75 155/75 O2 Sat by Pulse 100 100 99 Oximetry 10/10/18 10/10/18 10/10/18 07:50 08:00 08:04 Temperature 98.5 F Pulse Rate 119 H 120 H 120 H Pulse Rate [ 101 H From Monitor] Respiratory 17 14 Rate Blood Pressure 145/75 142/79 142/79 O2 Sat by Pulse 97 94 97 Oximetry 10/10/18 10/10/18 10/10/18 08:10 08:34 09:45 Temperature Pulse Rate 125 H 121 H 126 H Pulse Rate [ From Monitor] Respiratory 15 20 Rate Blood Pressure 155/75 141/82 199/91 O2 Sat by Pulse 99 92 98 Oximetry CBC and BMP: 10/10/18 07:54 10/10/18 07:54 ABG, PT/INR, D-dimer: ABG POC ABG pH 7.602 (7.35-7.45) H 10/10/18 04:24 POC ABG pO2 170 (80-105) H 10/10/18 04:24 POC ABG HCO3 28.4 (22-26 mml/L) 10/10/18 04:24 POC ABG Total CO2 29 (23-27mmol/L) 10/10/18 04:24 POC ABG O2 Sat 100 10/10/18 04:24 PT/INR, D-dimer PT 16.6 Sec. (12.2-14.9) H 10/09/18 10:50 INR 1.38 (0.87-1.13) H 10/09/18 10:50 Abnormal lab findings: Abnormal Labs 10/09/18 10/09/18 10/09/18 10:14 10:50 10:50 WBC RDW Seg Neuts % (Manual) Lymphocytes % (Manual) Seg Neutrophils # Man Monocytes # (Manual) PT 16.6 H INR 1.38 H APTT 39.4 H POC ABG pH POC ABG pCO2 POC ABG pO2 Chloride 90.3 L BUN 21 H Glucose 315 H POC Glucose 344 H Lactic Acid Magnesium AST 51 H ALT 67 H Total Creatine Kinase Total Protein 5.3 L Albumin 3.0 L Urine WBC (Auto) Salicylates Acetaminophen 10/09/18 10/09/18 10/09/18 10:50 10:50 10:50 WBC RDW Seg Neuts % (Manual) Lymphocytes % (Manual) Seg Neutrophils # Man Monocytes # (Manual) PT INR APTT POC ABG pH POC ABG pCO2 POC ABG pO2 Chloride BUN Glucose POC Glucose Lactic Acid Magnesium 3.70 H AST ALT Total Creatine Kinase 171 H Total Protein Albumin Urine WBC (Auto) Salicylates < 0.3 L Acetaminophen < 5.0 L 10/09/18 10/09/18 10/09/18 10:50 10:55 11:38 WBC 31.3 H RDW 13.0 L Seg Neuts % (Manual) 91.5 H Lymphocytes % (Manual) 4.5 L Seg Neutrophils # Man 28.6 H Monocytes # (Manual) 1.1 H PT INR APTT POC ABG pH 7.243 L POC ABG pCO2 68.0 H POC ABG pO2 389 H Chloride BUN Glucose POC Glucose Lactic Acid 9.30 H* Magnesium AST ALT Total Creatine Kinase Total Protein Albumin Urine WBC (Auto) Salicylates Acetaminophen 10/09/18 10/09/18 10/09/18 12:12 15:28 16:27 WBC RDW Seg Neuts % (Manual) Lymphocytes % (Manual) Seg Neutrophils # Man Monocytes # (Manual) PT INR APTT POC ABG pH 7.598 H POC ABG pCO2 POC ABG pO2 61 L Chloride BUN Glucose POC Glucose 173 H Lactic Acid Magnesium AST ALT Total Creatine Kinase Total Protein Albumin Urine WBC (Auto) 8.0 H Salicylates Acetaminophen 10/09/18 10/09/18 10/09/18 16:44 16:44 18:38 WBC RDW Seg Neuts % (Manual) Lymphocytes % (Manual) Seg Neutrophils # Man Monocytes # (Manual) PT INR APTT POC ABG pH POC ABG pCO2 POC ABG pO2 Chloride BUN Glucose POC Glucose 177 H Lactic Acid 3.80 H* 3.70 H* Magnesium AST ALT Total Creatine Kinase Total Protein Albumin Urine WBC (Auto) Salicylates Acetaminophen 10/10/18 10/10/18 10/10/18 00:33 04:24 05:32 WBC RDW Seg Neuts % (Manual) Lymphocytes % (Manual) Seg Neutrophils # Man Monocytes # (Manual) PT INR APTT POC ABG pH 7.602 H POC ABG pCO2 POC ABG pO2 170 H Chloride BUN Glucose POC Glucose 177 H 190 H Lactic Acid Magnesium AST ALT Total Creatine Kinase Total Protein Albumin Urine WBC (Auto) Salicylates Acetaminophen 10/10/18 10/10/18 07:54 07:54 WBC 38.6 H RDW Seg Neuts % (Manual) Lymphocytes % (Manual) Seg Neutrophils # Man Monocytes # (Manual) PT INR APTT POC ABG pH POC ABG pCO2 POC ABG pO2 Chloride BUN 31 H Glucose 124 H POC Glucose Lactic Acid Magnesium AST ALT Total Creatine Kinase Total Protein Albumin Urine WBC (Auto) Salicylates Acetaminophen Chest x-ray: image reviewed
[2018-10-10] MEDS ORDERED: CARDIZEM PO SCH (10:00)
[2018-10-10] MEDS ORDERED: SIMPLE SYRUP FEEDTUBE PRN ×2 (10:31)
[2018-10-10] MEDS ORDERED: PANCREAZE DR 10,500 UNIT FEEDTUBE PRN (10:31)
[2018-10-10] MEDS ORDERED: SODIUM BICARBONATE FEEDTUBE PRN (10:31)
[2018-10-10] MEDS: MAXIPIME/NS 2 GM/100 ML 2 GM/100 ML BAG IV SCH ×3 (10:32→23:14)
--- NOTE | 2018-10-10 12:06 | Progress Note ---
Assessment and Plan Assessment and plan: Septic shock. Patient currently on pressors of vasopressin and Levophed. Continue pressors to maintain MAP greater than 65. Continue antibiotics per infectious disease. Anoxic brain injury. Follow-up MRI and EEG. Cardiopulmonary arrest. Continue supportive care. S/P ACLS protocol initiation with return of cardiac rhythm Acute hypoxemic respiratory failure. Continue mechanical ventilation per pulmonary. The high probability of a clinically significant, sudden or life threatening deterioration of the [neurological and respiratory] system(s) required my full and direct attention, intervention and personal management. The aggregate critical care time was [32] minutes. This time is in addition to time spent performing reported procedures but includes the following: [x] Data Review and interpretation [x] Patient assessment and monitoring of vital signs [x] Documentation [x] Medication orders and management History Interval history: Patient remains on mechanical ventilation. Hospitalist Physical - Constitutional Vitals: Temp Pulse Resp BP Pulse Ox 98.5 F 126 H 20 199/91 98 10/10/18 08:00 10/10/18 09:45 10/10/18 08:34 10/10/18 09:45 10/10/18 09:45 General appearance: Present: severe distress - EENT Eyes: Present: PERRL, EOM intact ENT: hearing intact, clear oral mucosa, dentition normal - Neck Neck: Present: supple, normal ROM - Respiratory Respiratory effort: normal Respiratory: bilateral: CTA - Cardiovascular Rhythm: regular Heart Sounds: Present: S1 & S2. Absent: gallop, rub - Extremities Extremities: no ischemia, No edema, Full ROM - Abdominal General gastrointestinal: soft, non-tender, non-distended, normal bowel sounds - Integumentary Integumentary: Present: clear, warm, dry - Neurologic Neurologic: CNII-XII intact, moves all extremities Results - Labs CBC & Chem 7: 10/10/18 07:54 10/10/18 07:54 Labs: Laboratory Last Values WBC 38.6 K/mm3 (4.5-11.0) H 10/10/18 07:54 RBC 3.94 M/mm3 (3.65-5.03) 10/10/18 07:54 Hgb 11.8 gm/dl (10.1-14.3) 10/10/18 07:54 Hct 35.4 % (30.3-42.9) 10/10/18 07:54 MCV 90 fl (79-97) 10/10/18 07:54 MCH 30 pg (28-32) 10/10/18 07:54 MCHC 33 % (30-34) 10/10/18 07:54 RDW 13.2 % (13.2-15.2) 10/10/18 07:54 Plt Count 235 K/mm3 (140-440) 10/10/18 07:54 Add Manual Diff Complete 10/09/18 10:55 Total Counted 200 10/09/18 10:55 Seg Neutrophils % Customer Solutions Representative 10/09/18 10:55 Seg Neuts % (Manual) 91.5 % (40.0-70.0) H 10/09/18 10:55 0 % 10/09/18 10:55 4.5 % (13.4-35.0) L 10/09/18 10:55 Reactive Lymphs % (Man) 0 % 10/09/18 10:55 3.5 % (0.0-7.3) 10/09/18 10:55 0 % (0.0-4.3) 10/09/18 10:55 0 % (0.0-1.8) 10/09/18 10:55 0 % 10/09/18 10:55 0.5 % 10/09/18 10:55 0 % 10/09/18 10:55 0 % 10/09/18 10:55 Nucleated RBC % Not Reportable 10/09/18 10:55 Seg Neutrophils # Man 28.6 K/mm3 (1.8-7.7) H 10/09/18 10:55 Band Neutrophils # 0.0 K/mm3 10/09/18 10:55 1.4 K/mm3 (1.2-5.4) 10/09/18 10:55 Abs React Lymphs (Man) 0.0 K/mm3 10/09/18 10:55 1.1 K/mm3 (0.0-0.8) H 10/09/18 10:55 0.0 K/mm3 (0.0-0.4) 10/09/18 10:55 0.0 K/mm3 (0.0-0.1) 10/09/18 10:55 0.0 K/mm3 10/09/18 10:55 0.2 K/mm3 10/09/18 10:55 0.0 K/mm3 10/09/18 10:55 Blast Cells # 0.0 K/mm3 10/09/18 10:55 WBC Morphology Not Reportable 10/09/18 10:55 Hypersegmented Neuts Not Reportable 10/09/18 10:55 Hyposegmented Neuts Not Reportable 10/09/18 10:55 Hypogranular Neuts Not Reportable 10/09/18 10:55 Not Reportable 10/09/18 10:55 Not Reportable 10/09/18 10:55 Not Reportable 10/09/18 10:55 Not Reportable 10/09/18 10:55 Not Reportable 10/09/18 10:55 Not Reportable 10/09/18 10:55 Appears normal 10/09/18 10:55 Not Reportable 10/09/18 10:55 Plt Clumps, EDTA Not Reportable 10/09/18 10:55 Not Reportable 10/09/18 10:55 Not Reportable 10/09/18 10:55 Not Reportable 10/09/18 10:55 Plt Morphology Comment Not Reportable 10/09/18 10:55 RBC Morphology Not Reportable 10/09/18 10:55 Dimorphic RBCs Not Reportable 10/09/18 10:55 Not Reportable 10/09/18 10:55 Not Reportable 10/09/18 10:55 Not Reportable 10/09/18 10:55 1+ 10/09/18 10:55 Not Reportable 10/09/18 10:55 Not Reportable 10/09/18 10:55 Not Reportable 10/09/18 10:55 Not Reportable 10/09/18 10:55 Not Reportable 10/09/18 10:55 Not Reportable 10/09/18 10:55 Not Reportable 10/09/18 10:55 Not Reportable 10/09/18 10:55 Not Reportable 10/09/18 10:55 Not Reportable 10/09/18 10:55 Not Reportable 10/09/18 10:55 Not Reportable 10/09/18 10:55 Not Reportable 10/09/18 10:55 Not Reportable 10/09/18 10:55 Not Reportable 10/09/18 10:55 Acanthocytes (Spur) Not Reportable 10/09/18 10:55 Rouleaux Not Reportable 10/09/18 10:55 Not Reportable 10/09/18 10:55 Not Reportable 10/09/18 10:55 Not Reportable 10/09/18 10:55 Not Reportable 10/09/18 10:55 Hem Pathologist Commnt No 10/09/18 10:55 PT 16.6 Sec. (12.2-14.9) H 10/09/18 10:50 INR 1.38 (0.87-1.13) H 10/09/18 10:50 APTT 39.4 Sec. (24.2-36.6) H 10/09/18 10:50 POC ABG pH 7.602 (7.35-7.45) H 10/10/18 04:24 POC ABG pCO2 68.0 (35-45) H 10/09/18 11:38 POC ABG pO2 170 (80-105) H 10/10/18 04:24 POC ABG HCO3 28.4 (22-26 mml/L) 10/10/18 04:24 POC ABG Total CO2 29 (23-27mmol/L) 10/10/18 04:24 POC ABG O2 Sat 100 10/10/18 04:24 POC ABG Base Excess 7 ((-2) - (+3)mmol/L) 10/10/18 04:24 50 % 10/10/18 04:24 Sodium 143 mmol/L (137-145) 10/10/18 07:54 Potassium 4.0 mmol/L (3.6-5.0) 10/10/18 07:54 Chloride 104.2 mmol/L (98-107) 10/10/18 07:54 Carbon Dioxide 29 mmol/L (22-30) 10/10/18 07:54 14 mmol/L 10/10/18 07:54 BUN 31 mg/dL (7-17) H 10/10/18 07:54 0.8 mg/dL (0.7-1.2) 10/10/18 07:54 Estimated GFR > 60 ml/min 10/10/18 07:54 39 % 10/10/18 07:54 Glucose 124 mg/dL (65-100) H 10/10/18 07:54 POC Glucose 190 (70-105) H 10/10/18 05:32 Lactic Acid 1.90 mmol/L (0.7-2.0) 10/09/18 20:50 Calcium 9.3 mg/dL (8.4-10.2) 10/10/18 07:54 Magnesium 3.70 mg/dL (1.7-2.3) H 10/09/18 10:50 0.30 mg/dL (0.1-1.2) 10/09/18 10:50 AST 51 units/L (5-40) H 10/09/18 10:50 ALT 67 units/L (7-56) H 10/09/18 10:50 60 units/L (35-129) 10/09/18 10:50 171 units/L (30-135) H 10/09/18 10:50 < 0.010 ng/mL (0.00-0.029) 10/09/18 10:50 5.3 g/dL (6.3-8.2) L 10/09/18 10:50 3.0 g/dL (3.9-5) L 10/09/18 10:50 1.3 % 10/09/18 10:50 Yellow (Yellow) 10/09/18 12:12 Hazy (Clear) 10/09/18 12:12 7.0 (5.0-7.0) 10/09/18 12:12 Ur Specific [place] 1.011 (1.003-1.030) 10/09/18 12:12 100 mg/dl mg/dL (Negative) 10/09/18 12:12 150 mg/dL (Negative) 10/09/18 12:12 Neg mg/dL (Negative) 10/09/18 12:12 Sm (Negative) 10/09/18 12:12 Neg (Negative) 10/09/18 12:12 Neg (Negative) 10/09/18 12:12 < 2.0 mg/dL (<2.0) 10/09/18 12:12 Ur Leukocyte Esterase Neg (Negative) 10/09/18 12:12 8.0 /HPF (0.0-6.0) H 10/09/18 12:12 7.0 /HPF (0.0-6.0) 10/09/18 12:12 Few /HPF 10/09/18 12:12 Salicylates < 0.3 mg/dL (2.8-20.0) L 10/09/18 10:50 Acetaminophen < 5.0 ug/mL (10.0-30.0) L 10/09/18 10:50 Plasma/Serum Alcohol < 0.01 % (0-0.07) 10/09/18 10:50 Active Medications - Current Medications Current Medications: Generic Name Dose Route Start Last Admin Trade Name Freq PRN Reason Stop Dose Admin Acetaminophen 650 mg 10/10/18 00:18 10/10/18 00:34 Tylenol [place] 650 mg Q4H PRN Administration Pain, Mild (1-3) Lipase/Protease/Amylase 1 each 10/10/18 10:[address] 10,500 Unit FEEDTUBE PRN PRN For Clogged Feeding Tube Apixaban 5 mg 10/09/18 22:00 10/10/18 09:29 Eliquis PO 5 mg BID SAUNDRA Administration Protocol Diltiazem HCl 60 mg 10/10/18 12:00 Cardizem PO Q6HR SAUNDRA Famotidine 20 mg 10/10/18 22:00 Pepcid PO BID REPLACED BY [facility] Fentanyl 50 mcg 10/09/18 10:48 10/09/18 14:24 Sublimaze IV 50 mcg Q10MIN PRN Administration ANALGESIA Hydrophilic Ointment 1 applic 10/09/18 10:48 Vaseline Lip Therapy TP Q2HR PRN Dry Lips Norepinephrine 4 mg in 250 mls @ 7.5 mls/hr 10/09/18 11:00 10/10/18 05:21 Levophed Drip 4 Mg/Ns 250 Ml IV 0 mcg/min TITR SANUDRA 0 mls/hr Titration Protocol 2 MCG/MIN Fentanyl Citrate 2,000 mcg in 100 mls @ 3.561 mls/hr 10/09/18 11:00 Fentanyl Drip Premix IV TITR SAUNDRA Protocol 1 MCG/KG/HR Midazolam HCl 100 mg/ Sodium 100 mls @ 2 mls/hr 10/09/18 11:00 10/10/18 10:01 Chloride IV 1 mg/hr TITR SAUNDRA 1 mls/hr Titration Protocol 2 MG/HR Vancomycin HCl 1 gm in 250 mls @ 166.667 mls/hr 10/10/18 11:00 Vancomycin/Ns 1 Gm/250 Ml IV Q12H SAUNDRA Levofloxacin/Dextrose 750 mg in 150 mls @ 100 mls/hr 10/09/18 14:00 10/09/18 15:38 Levaquin 750mg/150ml IV 100 mls/hr Q24H SAUNDRA Administration Protocol Vasopressin 20 unit/ Sodium 101 mls @ 9.09 mls/hr 10/09/18 15:00 10/10/18 06:16 Chloride IV 0 units/min TITR SAUNDRA 0 mls/hr Titration Protocol 0.03 UNITS/MIN Sodium Chloride 1,000 mls @ 75 mls/hr 10/09/18 19:00 10/10/18 06:15 Nacl 0.9% 1000 Ml IV 75 mls/hr DIRECT SAUNDRA Administration Cefepime HCl 2 gm in 100 mls @ 200 mls/hr 10/10/18 10:00 10/10/18 10:32 Maxipime/Ns 2 Gm/100 Ml IV 200 mls/hr Q8HR SAUNDRA Administration Protocol Insulin Human Lispro 0 unit 10/10/18 12:00 Humalog SUB-Q Q6HR REPLACED BY [facility] Protocol Metoprolol Tartrate 5 mg 10/10/18 09:21 Lopressor IV Q6HR PRN Hypertension Midazolam HCl 2 mg 10/09/18 10:48 Versed IV Q10MIN PRN Sedation Multi-Ingred Cream/Lotion/Oil/Oint 1 applic 10/09/18 10:48 10/09/18 18:29 Artificial Tears Ophth Oint OU 1 applic Q4HR PRN Administration Dry Eye(s) Simple Syrup 15 ml 10/10/18 10:31 Simple Syrup FEEDTUBE PRN PRN Hypoglycemia Simple Syrup 30 ml 10/10/18 10:31 Simple Syrup FEEDTUBE PRN PRN Hypoglycemia Sodium Bicarbonate 325 mg 10/10/18 10:31 Sodium Bicarbonate FEEDTUBE PRN PRN For Clogged Feeding Tube Sodium Chloride 5 ml 10/09/18 10:48 Nacl 0.9% 500 Ml IV DIRECT PRN ARTERIAL LAYOUT DESIGNER Sodium Chloride 10 ml 10/09/18 22:00 10/10/18 09:30 Sodium Chloride Flush Syringe 10 Ml IV 10 ml BID SAUNDRA Administration Sodium Chloride 10 ml 10/09/18 13:07 Sodium Chloride Flush Syringe 10 Ml IV PRN PRN LINE FLUSH Nutrition/Malnutrition Assess - Dietary Evaluation Nutrition/Malnutrition Findings: Nutrition Notes Start: 10/10/18 08:09 Freq: Status: Active Protocol: Document 10/10/18 08:09 LM (Rec: 10/10/18 08:25 LM [email or web address]) Nutrition Notes Need for Assessment generated from: MD Order Initial or Follow up Assessment Current Diagnosis Sepsis,Hypertension, Respiratory Failure Other Pertinent Diagnosis Anoxic brain injury Current Diet NPO Labs/Tests Reviewed Pertinent Medications Reviewed Height 5 ft 2 in Weight 63.7 kg [place] Body Weight (kg) 50.00 BMI 25.7 Weight Status Appropriate Subjective/Other Information MD consult for MST, skin risk, TF. Pt on vent. Kristian score of 12. Pt has now wounds. Son stated that pt ate well [employer]. Son stated he believes pt lost 40 lb in 6 months and Pt's UBW is between 120-130 lb. Son did not know the cause of pt' s weight loss. Pt currently weighs 157 lb. Burn Absent Trauma Absent Minimum of two criteria No #1 Nutrition Diagnosis Inadequate oral intake Etiology Mechanical vent As Evidenced by Signs and Symptoms pt NPO Is patient on ventilator? Yes Is Patient Ambulatory and/or Out of Bed No REE-([place]-St. Jeor-confined to bed) 1361.868 Calculation Used for [facility]ations [facility] Additional Notes Protein: 76-127g (1.2-2 g/kg) Fluid: 1 ml/kcal Nutrition Intervention Change Diet Order: TF Nutrition Support: Vital AF 1.2 at 50 ml/hr Flush 75 ml/hr Kcal 1,440 Protein (gm) 90 Fluid (mL) 973 Goal #1 TF Start Anticipated Discharge Needs: Unable to determine at this time Follow-Up By: 10/11/18 Additional Comments F/U for TF start/tolerance
[2018-10-10] MEDS: HumaLOG SUB-Q SCH ×2 (12:12→18:19)
[2018-10-10] MEDS: VANCOMYCIN/NS 1 GM/250 ML 1 GM/250 ML BAG IV SCH ×2 (12:13→23:15)
--- NOTE | 2018-10-10 12:45 | Magnetic Resonance Report ---
MRI BRAIN WITH AND WITHOUT CONTRAST INDICATION / CLINICAL INFORMATION: Cardiac arrest, myoclonic jerks. TECHNIQUE: Multisequence, multiplanar images were obtained before and after IV gadolinium. COMPARISON: CT head dated 10/09/2018 FINDINGS: CEREBRAL and CEREBELLAR HEMISPHERES: Subtle cortical diffusion restriction is identified in the poste rior cerebral hemispheres bilaterally. This primarily affects the posterior frontal lobes, parietal l obes, posterior temporal lobes and occipital lobes. The posterior cerebellar hemispheres are also inv olved. There is subtle edema on the T2-weighted images in these areas as well. This is consistent wit h a diffuse anoxic injury. No midline shift. No acute hemorrhage. No extra-axial fluid collection. No chronic infarct. VENTRICLES: Normal in size and configuration for age. VISUALIZED ORBITS: No significant abnormality. VISUALIZED PARANASAL SINUSES: Mild mucosal thickening is noted throughout all paranasal sinuses. Mild retained secretions in the nasopharynx are noted. The mastoid air cells are clear. ADDITIONAL FINDINGS: There is no abnormal enhancement following IV gadolinium. IMPRESSION: Findings consistent with diffuse anoxic injury as outlined above. Signer Name: Khoi Cheung Jr, MD Signed: 10/10/2018 12:40 PM Workstation Name: [id number]
[2018-10-10] MEDS: LEVAQUIN 750MG/150ML 750 MG/150 ML BAG IV SCH (14:15)
--- NOTE | 2018-10-10 15:18 | Consultation ---
Past History Past Medical History: atrial fib, GERD, hypertension Past Surgical History: Other (Colonscopy) Social history: . denies: smoking, alcohol abuse, prescription drug abuse Family history: hypertension Medications and Allergies Allergies Allergy/AdvReac Type Severity Reaction Status Date / Time Penicillins Allergy Hives Verified 06/30/18 10:56 Home Medications Medication Instructions Recorded Confirmed Last Taken Type Acetaminophen [Acetaminophen TAB] 325 mg PO Q4H PRN #15 tablet 07/28/18 Unknown Rx Apixaban [Eliquis] 5 mg PO BID #60 tablet 07/28/18 Unknown Rx dilTIAZem [Cardizem] 30 mg PO Q8H #90 tablet 07/28/18 Unknown Rx Active Meds: Active Medications Acetaminophen (Tylenol) 650 mg HI Q4H PRN PRN Reason: Pain, Mild (1-3) Last Admin: 10/10/18 00:34 Dose: 650 mg Documented by: Lipase/Protease/Amylase (Pancreaze Dr 10,500 Unit) 1 each FEEDTUBE PRN PRN PRN Reason: For Clogged Feeding Tube Apixaban (Eliquis) 5 mg PO BID SAUNDRA; Protocol Last Admin: 10/10/18 09:29 Dose: 5 mg Documented by: Diltiazem HCl (Cardizem) 60 mg PO Q6HR SAUNDRA Last Admin: 10/10/18 12:11 Dose: 60 mg Documented by: Famotidine (Pepcid) 20 mg PO BID SAUNDRA Fentanyl (Sublimaze) 50 mcg IV Q10MIN PRN PRN Reason: ANALGESIA Last Admin: 10/09/18 14:24 Dose: 50 mcg Documented by: Hydrophilic Ointment (Vaseline Lip Therapy) 1 applic TP Q2HR PRN PRN Reason: Dry Lips Norepinephrine (Levophed Drip 4 Mg/Ns 250 Ml) 4 mg in 250 mls @ 7.5 mls/hr IV TITR SAUNDRA; Protocol Last Titration: 10/10/18 05:21 Dose: 0 mcg/min, 0 mls/hr Documented by: Fentanyl Citrate (Fentanyl Drip Premix) 2,000 mcg in 100 mls @ 3.561 mls/hr IV TITR SAUNDRA; Protocol Midazolam HCl 100 mg/ Sodium (Chloride) 100 mls @ 2 mls/hr IV TITR SAUNDRA; Protocol Last Titration: 10/10/18 12:05 Dose: 2 mg/hr, 2 mls/hr Documented by: Vancomycin HCl (Vancomycin/Ns 1 Gm/250 Ml) 1 gm in 250 mls @ 166.667 mls/hr IV Q12H SAUNDRA Last Admin: 10/10/18 12:13 Dose: 166.667 mls/hr Documented by: Levofloxacin/Dextrose (Levaquin 750mg/150ml) 750 mg in 150 mls @ 100 mls/hr IV Q24H SAUNDRA; Protocol Last Admin: 10/09/18 15:38 Dose: 100 mls/hr Documented by: Vasopressin 20 unit/ Sodium (Chloride) 101 mls @ 9.09 mls/hr IV TITR SAUNDRA; Protocol Last Titration: 10/10/18 06:16 Dose: 0 units/min, 0 mls/hr Documented by: Sodium Chloride (Nacl 0.9% 1000 Ml) 1,000 mls @ 75 mls/hr IV DIRECT SAUNDRA Last Infusion: 10/10/18 12:06 Dose: 0 mls/hr Documented by: Cefepime HCl (Maxipime/Ns 2 Gm/100 Ml) 2 gm in 100 mls @ 200 mls/hr IV Q8HR SAUNDRA; Protocol Last Admin: 10/10/18 10:32 Dose: 200 mls/hr Documented by: Insulin Human Lispro (Humalog) 0 unit SUB-Q Q6HR SAUNDRA; Protocol Last Admin: 10/10/18 12:12 Dose: Not Given Documented by: Metoprolol Tartrate (Lopressor) 5 mg IV Q6HR PRN PRN Reason: Hypertension Midazolam HCl (Versed) 2 mg IV Q10MIN PRN PRN Reason: Sedation Multi-Ingred Cream/Lotion/Oil/Oint (Artificial Tears Ophth Oint) 1 applic OU Q4HR PRN PRN Reason: Dry Eye(s) Last Admin: 10/09/18 18:29 Dose: 1 applic Documented by: Simple Syrup (Simple Syrup) 15 ml FEEDTUBE PRN PRN PRN Reason: Hypoglycemia Simple Syrup (Simple Syrup) 30 ml FEEDTUBE PRN PRN PRN Reason: Hypoglycemia Sodium Bicarbonate (Sodium Bicarbonate) 325 mg FEEDTUBE PRN PRN PRN Reason: For Clogged Feeding Tube Sodium Chloride (Nacl 0.9% 500 Ml) 5 ml IV DIRECT PRN PRN Reason: ARTERIAL MACHINE II TRIMMER Sodium Chloride (Sodium Chloride Flush Syringe 10 Ml) 10 ml IV BID SAUNDRA Last Admin: 10/10/18 09:30 Dose: 10 ml Documented by: Sodium Chloride (Sodium Chloride Flush Syringe 10 Ml) 10 ml IV PRN PRN PRN Reason: LINE FLUSH Physical Examination - Vital Signs Vital Signs: Vital Signs Pulse Resp 169 H 20 10/09/18 10:06 10/09/18 10:06 Results - Laboratory Findings CBC and BMP: 10/10/18 07:54 10/10/18 07:54 Abnormal Lab Findings: Abnormal Labs 10/09/18 10/09/18 10/09/18 10:14 10:50 10:50 WBC RDW Seg Neuts % (Manual) Lymphocytes % (Manual) Seg Neutrophils # Man Monocytes # (Manual) PT 16.6 H INR 1.38 H APTT 39.4 H POC ABG pH POC ABG pCO2 POC ABG pO2 Chloride 90.3 L BUN 21 H Glucose 315 H POC Glucose 344 H Lactic Acid Magnesium AST 51 H ALT 67 H Total Creatine Kinase Total Protein 5.3 L Albumin 3.0 L Urine WBC (Auto) Salicylates Acetaminophen 10/09/18 10/09/18 10/09/18 10:50 10:50 10:50 WBC RDW Seg Neuts % (Manual) Lymphocytes % (Manual) Seg Neutrophils # Man Monocytes # (Manual) PT INR APTT POC ABG pH POC ABG pCO2 POC ABG pO2 Chloride BUN Glucose POC Glucose Lactic Acid Magnesium 3.70 H AST ALT Total Creatine Kinase 171 H Total Protein Albumin Urine WBC (Auto) Salicylates < 0.3 L Acetaminophen < 5.0 L 10/09/18 10/09/18 10/09/18 10:50 10:55 11:38 WBC 31.3 H RDW 13.0 L Seg Neuts % (Manual) 91.5 H Lymphocytes % (Manual) 4.5 L Seg Neutrophils # Man 28.6 H Monocytes # (Manual) 1.1 H PT INR APTT POC ABG pH 7.243 L POC ABG pCO2 68.0 H POC ABG pO2 389 H Chloride BUN Glucose POC Glucose Lactic Acid 9.30 H* Magnesium AST ALT Total Creatine Kinase Total Protein Albumin Urine WBC (Auto) Salicylates Acetaminophen 10/09/18 10/09/18 10/09/18 12:12 15:28 16:27 WBC RDW Seg Neuts % (Manual) Lymphocytes % (Manual) Seg Neutrophils # Man Monocytes # (Manual) PT INR APTT POC ABG pH 7.598 H POC ABG pCO2 POC ABG pO2 61 L Chloride BUN Glucose POC Glucose 173 H Lactic Acid Magnesium AST ALT Total Creatine Kinase Total Protein Albumin Urine WBC (Auto) 8.0 H Salicylates Acetaminophen 10/09/18 10/09/18 10/09/18 16:44 16:44 18:38 WBC RDW Seg Neuts % (Manual) Lymphocytes % (Manual) Seg Neutrophils # Man Monocytes # (Manual) PT INR APTT POC ABG pH POC ABG pCO2 POC ABG pO2 Chloride BUN Glucose POC Glucose 177 H Lactic Acid 3.80 H* 3.70 H* Magnesium AST ALT Total Creatine Kinase Total Protein Albumin Urine WBC (Auto) Salicylates Acetaminophen 10/10/18 10/10/18 10/10/18 00:33 04:24 05:32 WBC RDW Seg Neuts % (Manual) Lymphocytes % (Manual) Seg Neutrophils # Man Monocytes # (Manual) PT INR APTT POC ABG pH 7.602 H POC ABG pCO2 POC ABG pO2 170 H Chloride BUN Glucose POC Glucose 177 H 190 H Lactic Acid Magnesium AST ALT Total Creatine Kinase Total Protein Albumin Urine WBC (Auto) Salicylates Acetaminophen 10/10/18 10/10/18 10/10/18 07:54 07:54 12:18 WBC 38.6 H RDW Seg Neuts % (Manual) Lymphocytes % (Manual) Seg Neutrophils # Man Monocytes # (Manual) PT INR APTT POC ABG pH POC ABG pCO2 POC ABG pO2 Chloride BUN 31 H Glucose 124 H POC Glucose 151 H Lactic Acid Magnesium AST ALT Total Creatine Kinase Total Protein Albumin Urine WBC (Auto) Salicylates Acetaminophen Assessment and Plan 68 YR OLD WITH HIST OF HTN AND NO OTHER KNOWN SIGNIFICANT MEDICAL PROBLEM WHO INITIALLY DEVELOPED SHORTNESS OF BREATH [facility] AND WAS DIAGNOSED WITH CO2 RETENTION,AND WAS ADMITTED ,PLACED ON [place] WHEN ABG IMPROVED SHE WAS DISCHARGED.SHE HAD EXTENSIVE WORK UP AT [place] INCLUDING PULMONARY INVOLVEMENT.PATIENT AGAIN DEVELOPED SHORTNESS OF BREATH ON 10/07/2018 AND WAS TAKEN TO [facility] AND WAS DISCHARGED NEXT DAY WHEN HER CO2 BECAME NORMAL.PATIENT DEVELOPED AN EPISODE OF CARDIAC ARREST ON 10/09/2018. EMS WAS CALLED. PATIENT'S SON REPORTED 20 MINUTES DOWN TIME.PATIENT WAS THEN BROUGHT TO ER BY EMS.AT ER SHE WAS FOUND COMATOSE AND ADMITTED TO ICU. HISTORY WAS OBTAINED FROM THE [facility] AT BED SIDE AND ALSO FROM CHART REVIEW.MRI WAS DONE AFTER ADMISSION WHICH SHOWS SUBTLE EDEMA ON T2 WEIGHTED IMAGES DIFFUSELY SUGGESTIVE OF ANOXIC BRAIN INJURY. PHYSICAL EXAMINATION. PATIENT IS VERBALLY UNRESPONSIVE. DOES NOT RESPOND TO STERNAL RUB. PUPILS SLUGGISHLY RECTIVE TO LIGHT. NO EXTRA OCULAR MOVEMENT WAS NOTED.CORNEAL RELFEX - VERY SLUGGISH RESPONSE. MOVES EXTREMITIES ON PAINFUL STIMULI, GENERALISED HYPO REFLEXIA WITH BILATERAL DOWN GOING TOES. IMPRESSION. 1. ANOXIC BRAIN INJURY WITH UNCERTAIN PROGNOSIS AT THIS POINT. RECOMMEND. 1. CONTINUE SUPPORTIVE CARE. 2. PLEASE START HER KEPPRA 500MG BID SHE IS AT RISK FOR ELECTRICAL STATUS/ SUBCONVULSIVE STATUS
[2018-10-10] MEDS: PEPCID PO SCH (23:12)
[2018-10-11] MEDS: HumaLOG SUB-Q SCH ×4 (01:14→18:06)
--- NOTE | 2018-10-11 02:28 | XRay Report ---
CHEST 1 VIEW 10/11/2018 1:31 AM INDICATION / CLINICAL INFORMATION: follow up respiratory failure. COMPARISON: Chest x-ray 10/10/2018 FINDINGS: SUPPORT DEVICES: ET tube, NG tube and right internal jugular central venous line again project in exp ected position. HEART / MEDIASTINUM: Cardiac silhouette is upper limits normal in size for AP technique. LUNGS / PLEURA: Left lower lobe parenchymal disease has developed since prior study. Right lung is cl ear. No significant pulmonary or pleural abnormality. No pneumothorax. ADDITIONAL FINDINGS: No significant additional findings. IMPRESSION: 1. New left lower lobe parenchymal disease suggestive for pneumonia. Signer Name: Gurmeet Nelson MD Signed: 10/11/2018 2:24 AM Workstation Name: [email or web address]
[2018-10-11 04:49] LABS: ABG Base Excess 2.8 mmol/L (-2.0-3.0); ABG HCO3 28.8 mmol/L (20.0-26.0); ABG Methemoglobin 0.6 % (0.0-1.5); ABG Oxygen Saturation 97.1 % (95.0-99.0); ABG PCO2 52.5 mm Hg; ABG PH 7.356 pH Units (7.350-7.450); ABG PO2 91.1 mm Hg (80.0-90.0)
[2018-10-11 05:07] LABS: Hematocrit 30.8 % (30.3-42.9); Hemoglobin 10.1 gm/dl (10.1-14.3); Mean Corpuscular HGB Conc 33 % (30-34); Mean Corpuscular Volume 90 fl (79-97); Platelet Count 188 K/mm3 (140-440); Red Blood Count 3.41 M/mm3 (3.65-5.03); Red Cell Distribution Width 13.7 % (13.2-15.2)
[2018-10-11 05:30] LABS: BUN/Creatinine Ratio 43; Blood Urea Nitrogen 26 mg/dL (7-17); Calcium 9.7 mg/dL (8.4-10.2); Hemolysis Index 4
[2018-10-11 06:58] LABS: Basophils % (Manual) 0 % (0.0-1.8); Eosinophils % (Manual) 0 % (0.0-4.3); Total Cells Counted 100
[2018-10-11 07:05] LABS: Anisocytosis Few
[2018-10-11 07:06] LABS: Ovalocytes Few; Platelet Estimate Consistent w Auto
[2018-10-11] MEDS: CARDIZEM PO SCH ×3 (07:06→18:06)
[2018-10-11] MEDS: MAXIPIME/NS 2 GM/100 ML 2 GM/100 ML BAG IV SCH ×3 (07:20→22:12)
--- NOTE | 2018-10-11 08:53 | Progress Note ---
Assessment and Plan s/p cardiopulmonary arrest-OOH with ROSC Acute hyoxemic respiratory failure on MVS Acute hypercapnic respiratory failure Acute encephalopathy- metabolic Sepsis Aspiration pneumonia LLL Left pleural effusion Myoclonic jerks, post arrest Atrial fibrillation with RVR Discussed MRI report with her younger son. Awaiting EEG. My sense , based on discussions with the sons, is that the family will want to continue full aggressive care, if that is the case an early trachesotomy and PEG placement would be appropriate -VAP bundle addressed -Daily SAT and SBT -Supplemental O2 to keep O2 sats >94 -ABG and CXR -AEDs on Keppra -VTE prophylaxis -Stress ulcer prophylaxis -Continue OGT for nutrition and oral medications - Continue tube feeding for nutritional support; accucheck with glycemic control, target blood glucose 140-180mg/dL -Antibiotics for aspiration pneumonia--MRSA and GNR coverage, patient has been i n the hospital multiple times in the last 90days -Aspiration precautions, HOB >40 -Chronic home medications -Supportive care -Mobility for pressure ulcer prevention -Critical care bundles addressed -Seizure precautions CONDITION: CRITICAL PROGNOSIS: GUARDED TO GRAVE CODE STATUS: FULL CODE The high probability of a clinically significant, sudden or life threatening deterioration of the [Neurology Respiratory, Cardiovascular] system(s) required my full and direct attention, intervention and personal management. The aggregate critical care time was [35] minutes. This time is in addition to time spent performing reported procedures but includes the following: [x] Data Review and interpretation [x] Patient assessment and monitoring of vital signs [x] Documentation [x] Medication orders and management Subjective Date of service: 10/11/18 Principal diagnosis: cardiac arrest Interval history: Follow up for: OOH cardiac arrest with ROSC; acute hypoxic-hypercapnic respiratory failure; myoclonic jerks; acute metabolic encephalopathy Seen ad examined. 24 hour events reviewed. Vitals, labs, medications, chart and imaging reviewed. Discussed in ICU-IDT rounds. Off vasopressor support Hypertensive this morning, otherwise remains unresponsive, low grade temps, re florentino encephalopathic- midazolam was turned off this morning for SAT MRI shows evidence of anoxia, blood pressure slightly elevated this morning Objective Vital Signs - 12hr 10/10/18 10/10/18 10/10/18 21:00 21:10 21:20 Temperature Pulse Rate 117 H 121 H 118 H Pulse Rate [ Left Dorsalis Pedis] Pulse Rate [ Left Radial] Respiratory 12 12 12 Rate Blood Pressure 124/55 124/55 124/55 O2 Sat by Pulse 98 98 99 Oximetry 10/10/18 10/10/18 10/10/18 21:30 21:40 21:50 Temperature Pulse Rate 119 H 121 H 120 H Pulse Rate [ Left Dorsalis Pedis] Pulse Rate [ Left Radial] Respiratory 12 12 12 Rate Blood Pressure 124/55 124/55 124/55 O2 Sat by Pulse 98 98 99 Oximetry 10/10/18 10/10/18 10/10/18 22:00 22:10 22:20 Temperature Pulse Rate 118 H 118 H 116 H Pulse Rate [ Left Dorsalis Pedis] Pulse Rate [ Left Radial] Respiratory 12 12 12 Rate Blood Pressure 132/61 132/61 132/61 O2 Sat by Pulse 98 98 98 Oximetry 10/10/18 10/10/18 10/10/18 22:30 22:40 22:50 Temperature Pulse Rate 123 H 120 H 120 H Pulse Rate [ Left Dorsalis Pedis] Pulse Rate [ Left Radial] Respiratory 12 12 12 Rate Blood Pressure 132/61 132/61 132/61 O2 Sat by Pulse 75 L 97 97 Oximetry 10/10/18 10/10/18 10/10/18 23:00 23:10 23:12 Temperature Pulse Rate 120 H 119 H 121 H Pulse Rate [ Left Dorsalis Pedis] Pulse Rate [ Left Radial] Respiratory 12 12 Rate Blood Pressure 143/72 143/72 143/72 O2 Sat by Pulse 95 98 Oximetry 10/10/18 10/10/18 10/10/18 23:20 23:30 23:40 Temperature Pulse Rate 119 H 122 H 115 H Pulse Rate [ Left Dorsalis Pedis] Pulse Rate [ Left Radial] Respiratory 12 12 12 Rate Blood Pressure 143/72 143/72 143/72 O2 Sat by Pulse 97 96 97 Oximetry 10/10/18 10/11/18 10/11/18 23:50 00:00 00:03 Temperature 99.4 F Pulse Rate 108 H 100 H 100 H Pulse Rate [ Left Dorsalis Pedis] Pulse Rate [ Left Radial] Respiratory 12 12 Rate Blood Pressure 143/72 163/69 163/69 O2 Sat by Pulse 97 96 96 Oximetry 10/11/18 10/11/18 10/11/18 00:10 00:14 00:20 Temperature Pulse Rate 100 H 101 H 102 H Pulse Rate [ Left Dorsalis Pedis] Pulse Rate [ Left Radial] Respiratory 10 L 12 Rate Blood Pressure 163/69 163/69 O2 Sat by Pulse Oximetry 10/11/18 10/11/18 10/11/18 00:30 00:40 00:50 Temperature Pulse Rate 104 H 105 H 106 H Pulse Rate [ Left Dorsalis Pedis] Pulse Rate [ Left Radial] Respiratory 12 12 12 Rate Blood Pressure 163/69 163/69 163/69 O2 Sat by Pulse Oximetry 10/11/18 10/11/18 10/11/18 00:59 01:00 02:00 Temperature Pulse Rate 105 H 107 H Pulse Rate [ 107 H Left Dorsalis Pedis] Pulse Rate [ 107 H Left Radial] Respiratory 12 12 12 Rate Blood Pressure 172/67 132/53 O2 Sat by Pulse 99 Oximetry 10/11/18 10/11/18 10/11/18 03:00 03:33 04:00 Temperature 99.6 F Pulse Rate 107 H 108 H 111 H Pulse Rate [ Left Dorsalis Pedis] Pulse Rate [ Left Radial] Respiratory 12 12 Rate Blood Pressure 131/54 131/54 153/66 O2 Sat by Pulse 99 100 99 Oximetry 10/11/18 10/11/18 10/11/18 04:17 05:00 07:06 Temperature Pulse Rate 107 H 107 H 111 H Pulse Rate [ Left Dorsalis Pedis] Pulse Rate [ Left Radial] Respiratory 12 Rate Blood Pressure 135/62 142/53 O2 Sat by Pulse 98 Oximetry 10/11/18 07:11 Temperature Pulse Rate 108 H Pulse Rate [ Left Dorsalis Pedis] Pulse Rate [ Left Radial] Respiratory Rate Blood Pressure 142/53 O2 Sat by Pulse 97 Oximetry Constitutional: no acute distress, other (unresponsive) Eyes: non-icteric ENT: oropharynx moist, other (ETT at 23cm to MVS) Neck: supple, no lymphadenopathy Effort: mildly labored Ascultation: Bilateral: diminished breath sounds, rhonchi Cardiovascular: other (irregular, tacycardia, S1,S2) Gastrointestinal: normoactive bowel sounds, soft, non-tender, non-distended Integumentary: normal Extremities: no cyanosis, no edema, pink and warm, pulses normal Neurologic: unable to assess, other (osturing on painful stiuli, Pupils are pin- point minimally reactive) Psychiatric: other (unalble to assess) CBC and BMP: 10/12/18 04:17 10/12/18 04:17 ABG, PT/INR, D-dimer: ABG POC ABG pH 7.602 (7.35-7.45) H 10/10/18 04:24 ABG pH 7.356 pH Units (7.350-7.450) 10/11/18 03:40 ABG pCO2 52.5 mm Hg 10/11/18 03:40 POC ABG pO2 170 (80-105) H 10/10/18 04:24 ABG pO2 91.1 mm Hg (80.0-90.0) H 10/11/18 03:40 POC ABG HCO3 28.4 (22-26 mml/L) 10/10/18 04:24 POC ABG Total CO2 29 (23-27mmol/L) 10/10/18 04:24 POC ABG O2 Sat 100 10/10/18 04:24 ABG O2 Saturation 97.1 % (95.0-99.0) 10/11/18 03:40 PT/INR, D-dimer PT 16.6 Sec. (12.2-14.9) H 10/09/18 10:50 INR 1.38 (0.87-1.13) H 10/09/18 10:50 Abnormal lab findings: Abnormal Labs 10/09/18 10/09/18 10/09/18 10:14 10:50 10:50 WBC RBC RDW Seg Neuts % (Manual) Lymphocytes % (Manual) Seg Neutrophils # Man Monocytes # (Manual) PT 16.6 H INR 1.38 H APTT 39.4 H POC ABG pH POC ABG pCO2 POC ABG pO2 ABG pO2 ABG HCO3 ABG Hemoglobin Chloride 90.3 L BUN 21 H Creatinine Glucose 315 H POC Glucose 344 H Lactic Acid Magnesium AST 51 H ALT 67 H Total Creatine Kinase Total Protein 5.3 L Albumin 3.0 L Urine WBC (Auto) Salicylates Acetaminophen 10/09/18 10/09/18 10/09/18 10:50 10:50 10:50 WBC RBC RDW Seg Neuts % (Manual) Lymphocytes % (Manual) Seg Neutrophils # Man Monocytes # (Manual) PT INR APTT POC ABG pH POC ABG pCO2 POC ABG pO2 ABG pO2 ABG HCO3 ABG Hemoglobin Chloride BUN Creatinine Glucose POC Glucose Lactic Acid Magnesium 3.70 H AST ALT Total Creatine Kinase 171 H Total Protein Albumin Urine WBC (Auto) Salicylates < 0.3 L Acetaminophen < 5.0 L 10/09/18 10/09/18 10/09/18 10:50 10:55 11:38 WBC 31.3 H RBC RDW 13.0 L Seg Neuts % (Manual) 91.5 H Lymphocytes % (Manual) 4.5 L Seg Neutrophils # Man 28.6 H Monocytes # (Manual) 1.1 H PT INR APTT POC ABG pH 7.243 L POC ABG pCO2 68.0 H POC ABG pO2 389 H ABG pO2 ABG HCO3 ABG Hemoglobin Chloride BUN Creatinine Glucose POC Glucose Lactic Acid 9.30 H* Magnesium AST ALT Total Creatine Kinase Total Protein Albumin Urine WBC (Auto) Salicylates Acetaminophen 10/09/18 10/09/18 10/09/18 12:12 15:28 16:27 WBC RBC RDW Seg Neuts % (Manual) Lymphocytes % (Manual) Seg Neutrophils # Man Monocytes # (Manual) PT INR APTT POC ABG pH 7.598 H POC ABG pCO2 POC ABG pO2 61 L ABG pO2 ABG HCO3 ABG Hemoglobin Chloride BUN Creatinine Glucose POC Glucose 173 H Lactic Acid Magnesium AST ALT Total Creatine Kinase Total Protein Albumin Urine WBC (Auto) 8.0 H Salicylates Acetaminophen 10/09/18 10/09/18 10/09/18 16:44 16:44 18:38 WBC RBC RDW Seg Neuts % (Manual) Lymphocytes % (Manual) Seg Neutrophils # Man Monocytes # (Manual) PT INR APTT POC ABG pH POC ABG pCO2 POC ABG pO2 ABG pO2 ABG HCO3 ABG Hemoglobin Chloride BUN Creatinine Glucose POC Glucose 177 H Lactic Acid 3.80 H* 3.70 H* Magnesium AST ALT Total Creatine Kinase Total Protein Albumin Urine WBC (Auto) Salicylates Acetaminophen 10/10/18 10/10/18 10/10/18 00:33 04:24 05:32 WBC RBC RDW Seg Neuts % (Manual) Lymphocytes % (Manual) Seg Neutrophils # Man Monocytes # (Manual) PT INR APTT POC ABG pH 7.602 H POC ABG pCO2 POC ABG pO2 170 H ABG pO2 ABG HCO3 ABG Hemoglobin Chloride BUN Creatinine Glucose POC Glucose 177 H 190 H Lactic Acid Magnesium AST ALT Total Creatine Kinase Total Protein Albumin Urine WBC (Auto) Salicylates Acetaminophen 10/10/18 10/10/18 10/10/18 07:54 07:54 12:18 WBC 38.6 H RBC RDW Seg Neuts % (Manual) Lymphocytes % (Manual) Seg Neutrophils # Man Monocytes # (Manual) PT INR APTT POC ABG pH POC ABG pCO2 POC ABG pO2 ABG pO2 ABG HCO3 ABG Hemoglobin Chloride BUN 31 H Creatinine Glucose 124 H POC Glucose 151 H Lactic Acid Magnesium AST ALT Total Creatine Kinase Total Protein Albumin Urine WBC (Auto) Salicylates Acetaminophen 10/10/18 10/10/18 10/11/18 18:17 23:09 03:40 WBC RBC RDW Seg Neuts % (Manual) Lymphocytes % (Manual) Seg Neutrophils # Man Monocytes # (Manual) PT INR APTT POC ABG pH POC ABG pCO2 POC ABG pO2 ABG pO2 91.1 H ABG HCO3 28.8 H ABG Hemoglobin 7.6 L Chloride BUN Creatinine Glucose POC Glucose 132 H 124 H Lactic Acid Magnesium AST ALT Total Creatine Kinase Total Protein Albumin Urine WBC (Auto) Salicylates Acetaminophen 10/11/18 10/11/18 10/11/18 04:45 04:45 06:50 WBC 25.8 H RBC 3.41 L RDW Seg Neuts % (Manual) 83.0 H Lymphocytes % (Manual) Seg Neutrophils # Man 21.4 H Monocytes # (Manual) PT INR APTT POC ABG pH POC ABG pCO2 POC ABG pO2 ABG pO2 ABG HCO3 ABG Hemoglobin Chloride BUN 26 H Creatinine 0.6 L Glucose 134 H POC Glucose 134 H Lactic Acid Magnesium AST ALT Total Creatine Kinase Total Protein Albumin Urine WBC (Auto) Salicylates Acetaminophen Chest x-ray: image reviewed Additional Studies: TRANSTHORACIC ECHOCARDIOGRAM PRELIM REPORT PER CARDS EF 60-65%, mild LVH, impaired relaxation, mild TR, mild pulm HTN RVSP 48mmHg, small pericardial effusion, left pleural effusion.
--- NOTE | 2018-10-11 09:17 | Progress Note ---
Assessment and Plan Echo reviewed - EF 60-65%, mild LVH, impaired relaxation, mild TR, mild pulm HTN RVSP 48mmHg, small pericardial effusion, left pleural effusion. BPs and HR improving. Cont current cardiac management. Can also consider addition of BB if necessary. Pt with suspected anoxic brain injury. Overall poor prognosis. The patient has been seen in conjunction with Dr. Laird who agrees with the assessment and plan of care. - Patient Problems (1) Cardiac arrest Current Visit: Yes Status: Acute (2) Acute respiratory failure Current Visit: Yes Status: Acute (3) Pneumonia Current Visit: Yes Status: Acute (4) Lactic acid acidosis Current Visit: Yes Status: Acute (5) Altered mental status Current Visit: Yes Status: Acute (6) Paroxysmal atrial fibrillation Current Visit: Yes Status: Chronic (7) HTN (hypertension) Current Visit: Yes Status: Chronic (8) Elevated LFTs Current Visit: Yes Status: Acute (9) Sleep apnea Current Visit: Yes Status: Chronic Subjective Date of service: 10/11/18 Principal diagnosis: cardiac arrest Interval history: pt remains intubated, unresponsive, sedated. in SR HR 100s on tele, BPs improved. no family at bedside. Objective Last Vital Signs Temp 100.1 F H 10/11/18 08:00 Pulse 108 H 10/11/18 07:11 Resp 12 10/11/18 05:00 BP 142/53 10/11/18 07:11 Pulse Ox 97 10/11/18 07:11 - Physical Examination General: Other (intubated, unresponsive) Cardiac: Positive: Regular Rhythm, S1/S2 Lungs: Positive: Decreased Breath Sounds, Ventilated Respirations Neuro: Positive: Other (intubated, unresponsive) Skin: Negative: Rash Extremities: Absent: edema - Labs and Meds CBC 10/11/18 Range/Units 04:45 WBC 25.8 H (4.5-11.0) K/mm3 RBC 3.41 L (3.65-5.03) M/mm3 Hgb 10.1 (10.1-14.3) gm/dl Hct 30.8 (30.3-42.9) % Plt Count 188 (140-440) K/mm3 Comprehensive Metabolic Panel 10/11/18 Range/Units 04:45 Sodium 142 (137-145) mmol/L Potassium 4.3 (3.6-5.0) mmol/L Chloride 105.3 (98-107) mmol/L Carbon Dioxide 29 (22-30) mmol/L BUN 26 H (7-17) mg/dL Creatinine 0.6 L (0.7-1.2) mg/dL Glucose 134 H (65-100) mg/dL Calcium 9.7 (8.4-10.2) mg/dL - Imaging and Cardiology EKG: report reviewed, image reviewed Echo: pending
[2018-10-11] MEDS: MIDAZOLAM 100 MG in NACL 0.9% 80 ML IV SCH (10:50)
[2018-10-11] MEDS: VANCOMYCIN/NS 1 GM/250 ML 1 GM/250 ML BAG IV SCH (10:51)
[2018-10-11] MEDS: SODIUM CHLORIDE FLUSH SYRINGE 10 ML IV SCH ×2 (10:55→22:15)
[2018-10-11] MEDS: PEPCID PO SCH ×2 (10:55→22:13)
[2018-10-11] MEDS: KEPPRA PO SCH ×2 (10:55→22:12)
[2018-10-11] MEDS: ELIQUIS PO SCH ×2 (10:55→22:12)
--- NOTE | 2018-10-11 12:42 | Consultation ---
History of Present Illness - Reason for Consult Consult date: 10/11/18 - History of Present Illness 68 yo F PMHx HTN, GERD, SVT/Atrial Flutter on AC admitted to the hospital after being found unresponsive. She arrived to the hospital intubated and as such the history is obtained from the chart. Her family found her unresponsive, and upon being seen by EMS in the field was found to be in cardiac arrest and was intubated in the field. She was transferred here and was determined to be without effective circulation for approximately 30 minutes. Given her symptoms there was concern for sepsis. She has been afebrile since admission with a Tmax of 100.1 and a leukocytosis of 26 which is improved from 38. She is currently receiving cefepime, levofloxacin, and vancomycin. 10/09 blood cultures are NGTD and sputum and urine cultures from the same date are negative. Imaging personally reviewed: 10/09 CTA: LLL aspiration pneumonia 10/10 brain MRI: diffuse anoxic brain injury 10/11 CXR: LLL PNA Past History Past Medical History: atrial fib, GERD, hypertension Past Surgical History: Other (Colonscopy) Social history: . denies: smoking, alcohol abuse, prescription drug abuse Family history: hypertension Medications and Allergies Allergies Allergy/AdvReac Type Severity Reaction Status Date / Time Penicillins Allergy Hives Verified 06/30/18 10:56 Home Medications Medication Instructions Recorded Confirmed Last Taken Type Acetaminophen [Acetaminophen TAB] 325 mg PO Q4H PRN #15 tablet 07/28/18 10/10/18 Unknown Rx Apixaban [Eliquis] 5 mg PO BID #60 tablet 07/28/18 10/10/18 Unknown Rx dilTIAZem [Cardizem] 30 mg PO Q8H #90 tablet 07/28/18 10/10/18 Unknown Rx Active Meds: Active Medications Acetaminophen (Tylenol) 650 mg KS Q4H PRN PRN Reason: Pain, Mild (1-3) Last Admin: 10/10/18 00:34 Dose: 650 mg Documented by: Lipase/Protease/Amylase (Willow Prajapati 10,500 Unit) 1 each FEEDTUBE PRN PRN PRN Reason: For Clogged Feeding Tube Apixaban (Eliquis) 5 mg PO BID SAUNDRA; Protocol Last Admin: 10/11/18 10:55 Dose: 5 mg Documented by: Diltiazem HCl (Cardizem) 60 mg PO Q6HR SAUNDRA Last Admin: 10/11/18 07:06 Dose: 60 mg Documented by: Famotidine (Pepcid) 20 mg PO BID SAUNDRA Last Admin: 10/11/18 10:55 Dose: 20 mg Documented by: Fentanyl (Sublimaze) 50 mcg IV Q10MIN PRN PRN Reason: ANALGESIA Last Admin: 10/09/18 14:24 Dose: 50 mcg Documented by: Hydrophilic Ointment (Vaseline Lip Therapy) 1 applic TP Q2HR PRN PRN Reason: Dry Lips Norepinephrine (Levophed Drip 4 Mg/Ns 250 Ml) 4 mg in 250 mls @ 7.5 mls/hr IV TITR SAUNDRA; Protocol Last Titration: 10/10/18 05:21 Dose: 0 mcg/min, 0 mls/hr Documented by: Fentanyl Citrate (Fentanyl Drip Premix) 2,000 mcg in 100 mls @ 3.561 mls/hr IV TITR SAUNDRA; Protocol Midazolam HCl 100 mg/ Sodium (Chloride) 100 mls @ 2 mls/hr IV TITR SAUNDRA; Protocol Last Admin: 10/11/18 10:50 Dose: 2 mg/hr, 2 mls/hr Documented by: Vancomycin HCl (Vancomycin/Ns 1 Gm/250 Ml) 1 gm in 250 mls @ 166.667 mls/hr IV Q12H SAUNDRA Last Admin: 10/11/18 10:51 Dose: 166.667 mls/hr Documented by: Levofloxacin/Dextrose (Levaquin 750mg/150ml) 750 mg in 150 mls @ 100 mls/hr IV Q24H SAUNDRA; Protocol Last Admin: 10/10/18 14:15 Dose: 100 mls/hr Documented by: Vasopressin 20 unit/ Sodium (Chloride) 101 mls @ 9.09 mls/hr IV TITR SAUNDRA; Protocol Last Titration: 10/10/18 06:16 Dose: 0 units/min, 0 mls/hr Documented by: Cefepime HCl (Maxipime/Ns 2 Gm/100 Ml) 2 gm in 100 mls @ 200 mls/hr IV Q8HR SAUNDRA; Protocol Last Admin: 10/11/18 07:20 Dose: 200 mls/hr Documented by: Insulin Human Lispro (Humalog) 0 unit SUB-Q Q6HR SAUNDRA; Protocol Last Admin: 10/11/18 10:46 Dose: Not Given Documented by: Levetiracetam (Keppra) 500 mg PO BID [facility] Last Admin: 10/11/18 10:55 Dose: 500 mg Documented by: Metoprolol Tartrate (Lopressor) 5 mg IV Q6HR PRN PRN Reason: Hypertension Midazolam HCl (Versed) 2 mg IV Q10MIN PRN PRN Reason: Sedation Multi-Ingred Cream/Lotion/Oil/Oint (Artificial Tears Ophth Oint) 1 applic OU Q4HR PRN PRN Reason: Dry Eye(s) Last Admin: 10/09/18 18:29 Dose: 1 applic Documented by: Simple Syrup (Simple Syrup) 15 ml FEEDTUBE PRN PRN PRN Reason: Hypoglycemia Simple Syrup (Simple Syrup) 30 ml FEEDTUBE PRN PRN PRN Reason: Hypoglycemia Sodium Bicarbonate (Sodium Bicarbonate) 325 mg FEEDTUBE PRN PRN PRN Reason: For Clogged Feeding Tube Sodium Chloride (Nacl 0.9% 500 Ml) 5 ml IV DIRECT PRN PRN Reason: [employer] Sodium Chloride (Sodium Chloride Flush Syringe 10 Ml) 10 ml IV BID [facility] Last Admin: 10/11/18 10:55 Dose: 10 ml Documented by: Sodium Chloride (Sodium Chloride Flush Syringe 10 Ml) 10 ml IV PRN PRN PRN Reason: LINE FLUSH Review of Systems ROS unobtainable: due to endotracheal tube, due to mental status Physical Examination - Physical Exam Narrative exam: Constitutional: intubated, non-responsive. Head, Ears, Nose: Normocephalic, atraumatic. External ears, nose normal Eyes: Conjunctivae/corneas clear. No icterus. No ptosis. Neck: Supple, no meningeal signs Oral: dentition fair, no thrush Cardiovascular: S1, S2 normal. Respiratory: Good air entry, clear to auscultation bilaterally GI: Soft, non-tender; bowel sounds normal. No peritoneal signs. Musculoskeletal: No pedal edema, no cyanosis. Skin: No rash or abscess Hem/Lymphatic: No palpable cervical or supraclavicular nodes. No lymphangitis Neurological: intubated, non-responsive - Constitutional Vitals: Vital Signs Temp Pulse Resp BP Pulse Ox 100.1 F H 102 H 14 142/43 99 10/11/18 08:00 10/11/18 12:00 10/11/18 12:00 10/11/18 12:00 10/11/18 12:00 Temperature -Last 24 Hours Temperature 100.1 F Temperature 100.1 F Temperature 99.6 F Temperature 99.4 F Temperature 98.8 F Results - Labs CBC & Chem 7: 10/11/18 04:45 10/11/18 04:45 Labs: Abnormal lab results 10/10/18 10/10/18 10/11/18 Range/Units 18:17 23:09 03:40 WBC (4.5-11.0) K/mm3 RBC (3.65-5.03) M/mm3 Seg Neuts % (Manual) (40.0-70.0) % Seg Neutrophils # Man (1.8-7.7) K/mm3 ABG pO2 91.1 H (80.0-90.0) mm Hg ABG HCO3 28.8 H (20.0-26.0) mmol/L ABG Hemoglobin 7.6 L (12.0-16.0) gm/dl BUN (7-17) mg/dL Creatinine (0.7-1.2) mg/dL Glucose (65-100) mg/dL POC Glucose 132 H 124 H (70-105) 10/11/18 10/11/18 10/11/18 Range/Units 04:45 04:45 06:50 WBC 25.8 H (4.5-11.0) K/mm3 RBC 3.41 L (3.65-5.03) M/mm3 Seg Neuts % (Manual) 83.0 H (40.0-70.0) % Seg Neutrophils # Man 21.4 H (1.8-7.7) K/mm3 ABG pO2 (80.0-90.0) mm Hg ABG HCO3 (20.0-26.0) mmol/L ABG Hemoglobin (12.0-16.0) gm/dl BUN 26 H (7-17) mg/dL Creatinine 0.6 L (0.7-1.2) mg/dL Glucose 134 H (65-100) mg/dL POC Glucose 134 H (70-105) Assessment and Plan Cultures: 10/09 blood cultures: NGTD 10/09 urine cultures: Negative 10/09 sputum cultures: Negative A/P: 68 yo F PMHx HTN, GERD, SVT/Atrial Flutter on AC admitted with cardiac arrest, now with aspiration pneumonia 1. Septic shock secondary to aspiration pneumonia - Present with tachycardia and leukocytosis. While antibiotics are unlikely to improve her outcome given the anoxic brain injury, can continue them for now. would continue cefepime and vancomycin, can stop levofloxacin as that does not add to the coverage. 2. Cardiogenic shock - s/p resuscitation 3. Anoxic brain injury - poor prognosis for meaningful neurological recovery. 4. HTN 5. GERD Recs: - stop levofloxacin - continue vancomycin dosed per pharmacy. Appreciate their assistance. Goal trough 15-20 - continue cefepime - Prognosis: grim Thank you for the consult, we will continue to follow. MD [facility] ([facility]) M: [phone] O: [phone] F: [phone]
--- NOTE | 2018-10-11 14:24 | Progress Note ---
Assessment and Plan Assessment and plan: Septic shock. Patient currently on pressors of vasopressin and Levophed. Continue pressors to maintain MAP greater than 65. Continue antibiotics per infectious disease. Left lower lobe pneumonia. Continue antibiotics. ID following. Anoxic brain injury. Follow-up EEG. MRI findings consistent with anoxic brain injury. Keppra started per neurology twice a day for seizure prophylaxis Cardiopulmonary arrest. Echo revealed EF 60-65%, mild LVH, impaired relaxation, mild TR, mild pulm HTN RVSP 48mmHg, small pericardial effusion, left pleural effusion. Continue supportive care. S/P ACLS protocol initiation with return of cardiac rhythm Acute hypoxemic respiratory failure. Continue mechanical ventilation per pulmonary. The high probability of a clinically significant, sudden or life threatening deterioration of the [neurological and respiratory] system(s) required my full and direct attention, intervention and personal management. The aggregate critical care time was [31] minutes. This time is in addition to time spent performing reported procedures but includes the following: [x] Data Review and interpretation [x] Patient assessment and monitoring of vital signs [x] Documentation [x] Medication orders and management History Interval history: Patient remains on mechanical ventilation. Hospitalist Physical - Constitutional Vitals: Temp Pulse Resp BP Pulse Ox 99.2 F 92 H 14 138/46 91 10/11/18 12:00 10/11/18 14:00 10/11/18 14:00 10/11/18 14:00 10/11/18 14:00 General appearance: Present: severe distress, other (orally intubated) - EENT Eyes: Present: PERRL, EOM intact ENT: hearing intact, clear oral mucosa, dentition normal - Neck Neck: Present: supple, normal ROM - Respiratory Respiratory effort: normal Respiratory: bilateral: CTA - Cardiovascular Rhythm: regular Heart Sounds: Present: S1 & S2. Absent: gallop, rub - Extremities Extremities: no ischemia, No edema, Full ROM - Abdominal General gastrointestinal: soft, non-tender, non-distended, normal bowel sounds - Integumentary Integumentary: Present: clear, warm, dry - Neurologic Neurologic: CNII-XII intact, moves all extremities Results - Labs CBC & Chem 7: 10/11/18 04:45 10/11/18 04:45 Labs: Laboratory Last Values WBC 25.8 K/mm3 (4.5-11.0) H 10/11/18 04:45 RBC 3.41 M/mm3 (3.65-5.03) L 10/11/18 04:45 Hgb 10.1 gm/dl (10.1-14.3) 10/11/18 04:45 Hct 30.8 % (30.3-42.9) 10/11/18 04:45 MCV 90 fl (79-97) 10/11/18 04:45 MCH 30 pg (28-32) 10/11/18 04:45 MCHC 33 % (30-34) 10/11/18 04:45 RDW 13.7 % (13.2-15.2) 10/11/18 04:45 Plt Count 188 K/mm3 (140-440) 10/11/18 04:45 Add Manual Diff Complete 10/11/18 04:45 Total Counted 100 10/11/18 04:45 Seg Neutrophils % [employer] 10/09/18 10:55 Seg Neuts % (Manual) 83.0 % (40.0-70.0) H 10/11/18 04:45 0 % 10/11/18 04:45 14.0 % (13.4-35.0) 10/11/18 04:45 Reactive Lymphs % (Man) 0 % 10/11/18 04:45 3.0 % (0.0-7.3) 10/11/18 04:45 0 % (0.0-4.3) 10/11/18 04:45 0 % (0.0-1.8) 10/11/18 04:45 0 % 10/11/18 04:45 0 % 10/11/18 04:45 0 % 10/11/18 04:45 0 % 10/11/18 04:45 Nucleated RBC % Not Reportable 10/11/18 04:45 Seg Neutrophils # Man 21.4 K/mm3 (1.8-7.7) H 10/11/18 04:45 Band Neutrophils # 0.0 K/mm3 10/11/18 04:45 3.6 K/mm3 (1.2-5.4) 10/11/18 04:45 Abs React Lymphs (Man) 0.0 K/mm3 10/11/18 04:45 0.8 K/mm3 (0.0-0.8) 10/11/18 04:45 0.0 K/mm3 (0.0-0.4) 10/11/18 04:45 0.0 K/mm3 (0.0-0.1) 10/11/18 04:45 0.0 K/mm3 10/11/18 04:45 0.0 K/mm3 10/11/18 04:45 0.0 K/mm3 10/11/18 04:45 Blast Cells # 0.0 K/mm3 10/11/18 04:45 WBC Morphology Not Reportable 10/11/18 04:45 Hypersegmented Neuts Not Reportable 10/11/18 04:45 Hyposegmented Neuts Not Reportable 10/11/18 04:45 Hypogranular Neuts Not Reportable 10/11/18 04:45 Not Reportable 10/11/18 04:45 Not Reportable 10/11/18 04:45 Not Reportable 10/11/18 04:45 Not Reportable 10/11/18 04:45 Not Reportable 10/11/18 04:45 Not Reportable 10/11/18 04:45 Consistent w auto 10/11/18 04:45 Not Reportable 10/11/18 04:45 Plt Clumps, EDTA Not Reportable 10/11/18 04:45 Not Reportable 10/11/18 04:45 Not Reportable 10/11/18 04:45 Not Reportable 10/11/18 04:45 Plt Morphology Comment Not Reportable 10/11/18 04:45 RBC Morphology Not Reportable 10/11/18 04:45 Dimorphic RBCs Not Reportable 10/11/18 04:45 Not Reportable 10/11/18 04:45 Not Reportable 10/11/18 04:45 Not Reportable 10/11/18 04:45 Few 10/11/18 04:45 Not Reportable 10/11/18 04:45 Not Reportable 10/11/18 04:45 Not Reportable 10/11/18 04:45 Not Reportable 10/11/18 04:45 Not Reportable 10/11/18 04:45 Not Reportable 10/11/18 04:45 Not Reportable 10/11/18 04:45 Few 10/11/18 04:45 Not Reportable 10/11/18 04:45 Not Reportable 10/11/18 04:45 Not Reportable 10/11/18 04:45 Not Reportable 10/11/18 04:45 Not Reportable 10/11/18 04:45 Not Reportable 10/11/18 04:45 Not Reportable 10/11/18 04:45 Acanthocytes (Spur) Not Reportable 10/11/18 04:45 Rouleaux Not Reportable 10/11/18 04:45 Not Reportable 10/11/18 04:45 Not Reportable 10/11/18 04:45 Not Reportable 10/11/18 04:45 Not Reportable 10/11/18 04:45 Hem Pathologist Commnt No 10/11/18 04:45 PT 16.6 Sec. (12.2-14.9) H 10/09/18 10:50 INR 1.38 (0.87-1.13) H 10/09/18 10:50 APTT 39.4 Sec. (24.2-36.6) H 10/09/18 10:50 POC ABG pH 7.602 (7.35-7.45) H 10/10/18 04:24 ABG pH 7.356 pH Units (7.350-7.450) 10/11/18 03:40 POC ABG pCO2 68.0 (35-45) H 10/09/18 11:38 ABG pCO2 52.5 mm Hg 10/11/18 03:40 POC ABG pO2 170 (80-105) H 10/10/18 04:24 ABG pO2 91.1 mm Hg (80.0-90.0) H 10/11/18 03:40 POC ABG HCO3 28.4 (22-26 mml/L) 10/10/18 04:24 ABG HCO3 28.8 mmol/L (20.0-26.0) H 10/11/18 03:40 POC ABG Total CO2 29 (23-27mmol/L) 10/10/18 04:24 POC ABG O2 Sat 100 10/10/18 04:24 ABG O2 Saturation 97.1 % (95.0-99.0) 10/11/18 03:40 ABG O2 Content 10.4 (0.0-44) 10/11/18 03:40 POC ABG Base Excess 7 ((-2) - (+3)mmol/L) 10/10/18 04:24 ABG Base Excess 2.8 mmol/L (-2.0-3.0) 10/11/18 03:40 ABG Hemoglobin 7.6 gm/dl (12.0-16.0) L 10/11/18 03:40 ABG Carboxyhemoglobin 1.2 % (0.0-5.0) 10/11/18 03:40 ABG Methemoglobin 0.6 % (0.0-1.5) 10/11/18 03:40 95.3 % (95.0-99.0) 10/11/18 03:40 40 % 10/11/18 03:40 Sodium 142 mmol/L (137-145) 10/11/18 04:45 Potassium 4.3 mmol/L (3.6-5.0) 10/11/18 04:45 Chloride 105.3 mmol/L (98-107) 10/11/18 04:45 Carbon Dioxide 29 mmol/L (22-30) 10/11/18 04:45 12 mmol/L 10/11/18 04:45 BUN 26 mg/dL (7-17) H 10/11/18 04:45 0.6 mg/dL (0.7-1.2) L 10/11/18 04:45 Estimated GFR > 60 ml/min 10/11/18 04:45 43 % 10/11/18 04:45 Glucose 134 mg/dL (65-100) H 10/11/18 04:45 POC Glucose 160 (70-105) H 10/11/18 13:10 Lactic Acid 1.90 mmol/L (0.7-2.0) 10/09/18 20:50 Calcium 9.7 mg/dL (8.4-10.2) 10/11/18 04:45 Magnesium 3.70 mg/dL (1.7-2.3) H 10/09/18 10:50 0.30 mg/dL (0.1-1.2) 10/09/18 10:50 AST 51 units/L (5-40) H 10/09/18 10:50 ALT 67 units/L (7-56) H 10/09/18 10:50 60 units/L (35-129) 10/09/18 10:50 171 units/L (30-135) H 10/09/18 10:50 < 0.010 ng/mL (0.00-0.029) 10/09/18 10:50 5.3 g/dL (6.3-8.2) L 10/09/18 10:50 3.0 g/dL (3.9-5) L 10/09/18 10:50 1.3 % 10/09/18 10:50 Yellow (Yellow) 10/09/18 12:12 Hazy (Clear) 10/09/18 12:12 7.0 (5.0-7.0) 10/09/18 12:12 Ur Specific [place] 1.011 (1.003-1.030) 10/09/18 12:12 100 mg/dl mg/dL (Negative) 10/09/18 12:12 150 mg/dL (Negative) 10/09/18 12:12 Neg mg/dL (Negative) 10/09/18 12:12 Sm (Negative) 10/09/18 12:12 Neg (Negative) 10/09/18 12:12 Neg (Negative) 10/09/18 12:12 < 2.0 mg/dL (<2.0) 10/09/18 12:12 Ur Leukocyte Esterase Neg (Negative) 10/09/18 12:12 8.0 /HPF (0.0-6.0) H 10/09/18 12:12 7.0 /HPF (0.0-6.0) 10/09/18 12:12 Few /HPF 10/09/18 12:12 Salicylates < 0.3 mg/dL (2.8-20.0) L 10/09/18 10:50 Acetaminophen < 5.0 ug/mL (10.0-30.0) L 10/09/18 10:50 Plasma/Serum Alcohol < 0.01 % (0-0.07) 10/09/18 10:50 Active Medications - Current Medications Current Medications: Generic Name Dose Route Start Last Admin Trade Name Freq PRN Reason Stop Dose Admin Acetaminophen 650 mg 10/10/18 00:18 10/10/18 00:34 Tylenol ND 650 mg Q4H PRN Administration Pain, Mild (1-3) Lipase/Protease/Amylase 1 each 10/10/18 10:[address] 10,500 Unit FEEDTUBE PRN PRN For Clogged Feeding Tube Apixaban 5 mg 10/09/18 22:00 10/11/18 10:55 Eliquis PO 5 mg BID SAUNDRA Administration Protocol Diltiazem HCl 60 mg 10/10/18 12:00 10/11/18 13:08 Cardizem PO 60 mg Q6HR SAUNDRA Administration Famotidine 20 mg 10/10/18 22:00 10/11/18 10:55 Pepcid PO 20 mg BID SAUNDRA Administration Fentanyl 50 mcg 10/09/18 10:48 10/09/18 14:24 Sublimaze IV 50 mcg Q10MIN PRN Administration ANALGESIA Hydrophilic Ointment 1 applic 10/09/18 10:48 Vaseline Lip Therapy TP Q2HR PRN Dry Lips Norepinephrine 4 mg in 250 mls @ 7.5 mls/hr 10/09/18 11:00 10/10/18 05:21 Levophed Drip 4 Mg/Ns 250 Ml IV 0 mcg/min TITR SAUNDRA 0 mls/hr Titration Protocol 2 MCG/MIN Fentanyl Citrate 2,000 mcg in 100 mls @ 3.561 mls/hr 10/09/18 11:00 Fentanyl Drip Premix IV TITR SAUNDRA Protocol 1 MCG/KG/HR Midazolam HCl 100 mg/ Sodium 100 mls @ 2 mls/hr 10/09/18 11:00 10/11/18 10:50 Chloride IV 2 mg/hr TITR SAUNDRA 2 mls/hr Administration Protocol 2 MG/HR Vancomycin HCl 1 gm in 250 mls @ 166.667 mls/hr 10/10/18 11:00 10/11/18 10:51 Vancomycin/Ns 1 Gm/250 Ml IV 166.667 mls/hr Q12H SAUNDRA Administration Levofloxacin/Dextrose 750 mg in 150 mls @ 100 mls/hr 10/09/18 14:00 10/10/18 14:15 Levaquin 750mg/150ml IV 100 mls/hr Q24H SAUNDRA Administration Protocol Vasopressin 20 unit/ Sodium 101 mls @ 9.09 mls/hr 10/09/18 15:00 10/10/18 06:16 Chloride IV 0 units/min TITR SAUNDRA 0 mls/hr Titration Protocol 0.03 UNITS/MIN Cefepime HCl 2 gm in 100 mls @ 200 mls/hr 10/10/18 10:00 09/04/19 07:20 Maxipime/Ns 2 Gm/100 Ml IV 200 mls/hr Q8HR SAUNDRA Administration Protocol Insulin Human Lispro 0 unit 10/10/18 12:00 10/11/18 13:10 Humalog SUB-Q 2 unit Q6HR SAUNDRA Administration Protocol Levetiracetam 500 mg 10/11/18 10:00 10/11/18 10:55 Keppra PO 500 mg BID SAUNDRA Administration Metoprolol Tartrate 5 mg 10/10/18 09:21 Lopressor IV Q6HR PRN Hypertension Midazolam HCl 2 mg 10/09/18 10:48 Versed IV Q10MIN PRN Sedation Multi-Ingred Cream/Lotion/Oil/Oint 1 applic 10/09/18 10:48 10/09/18 18:29 Artificial Tears Ophth Oint OU 1 applic Q4HR PRN Administration Dry Eye(s) Simple Syrup 15 ml 10/10/18 10:31 Simple Syrup FEEDTUBE PRN PRN Hypoglycemia Simple Syrup 30 ml 10/10/18 10:31 Simple Syrup FEEDTUBE PRN PRN Hypoglycemia Sodium Bicarbonate 325 mg 10/10/18 10:31 Sodium Bicarbonate FEEDTUBE PRN PRN For Clogged Feeding Tube Sodium Chloride 5 ml 10/09/18 10:48 Nacl 0.9% 500 Ml IV DIRECT PRN ARTERIAL SOFTWARE EDUCATOR Sodium Chloride 10 ml 10/09/18 22:00 10/11/18 10:55 Sodium Chloride Flush Syringe 10 Ml IV 10 ml BID SAUNDRA Administration Sodium Chloride 10 ml 10/09/18 13:07 Sodium Chloride Flush Syringe 10 Ml IV PRN PRN LINE FLUSH Nutrition/Malnutrition Assess - Dietary Evaluation Nutrition/Malnutrition Findings: Nutrition Notes Start: 10/10/18 08:09 Freq: Status: Active Protocol: Document 10/11/18 10:38 LM (Rec: 10/11/18 10:46 LM [email or web address]) Nutrition Notes Initial or Follow up Reassessment Current Diagnosis Sepsis,Hypertension, Respiratory Failure Other Pertinent Diagnosis Anoxic brain injury Current Diet Vital AF 1.2 at 50 ml/hr Labs/Tests BG 134 BUN 26 Cr 0.6 Pertinent Medications Reviewed Height 5 ft 2 in Weight 63.7 kg [place] Body Weight (kg) 50.00 BMI 25.7 Subjective/Other Information Vital AF running at 40 ml/hr. Pt is tolerating TF. Percent of energy/protein needs met: 85%/95% Burn Absent Trauma Absent #1 Nutrition Diagnosis Inadequate oral intake Diagnosis Progress(for reassessment Continues documentation) Is patient on ventilator? Yes Is Patient Ambulatory and/or Out of Bed No REE-([facility]-confined to bed) 1361.868 Calculation Used for Recommendations [facility] Additional Notes Protein: 76-127g (1.2-2 g/kg) Fluid: 1 ml/kcal Nutrition Intervention Change Diet Order: TF Nutrition Support: Vital AF 1.2 at 50 ml/hr Flush 75 ml/hr Kcal 1,440 Protein (gm) 90 Fluid (mL) 973 Goal #1 Meet at least 75% of energy and protein needs Anticipated Discharge Needs: Unable to determine at this time Follow-Up By: 10/13/18 Additional Comments F/U for TF rate/tolerance
[2018-10-11] MEDS: LEVAQUIN 750MG/150ML 750 MG/150 ML BAG IV SCH (14:43)
[2018-10-12] MEDS: CARDIZEM PO SCH ×4 (00:11→18:00)
[2018-10-12] MEDS: HumaLOG SUB-Q SCH ×4 (00:18→18:00)
[2018-10-12] MEDS: VANCOMYCIN/NS 1 GM/250 ML 1 GM/250 ML BAG IV SCH (00:22)
--- NOTE | 2018-10-12 04:07 | XRay Report ---
CHEST 1 VIEW 10/12/2018 2:02 AM INDICATION / CLINICAL INFORMATION: follow up respiratory failure. COMPARISON: Chest x-ray 10/11/2018 FINDINGS: SUPPORT DEVICES: Right internal jugular central line has been removed. ET tube and NG tube again proj ect in expected position. HEART / MEDIASTINUM: Cardiac silhouette is normal in size for AP technique. LUNGS / PLEURA: Small left pleural effusion again noted. Right lung clear. No pneumothorax. ADDITIONAL FINDINGS: No significant additional findings. IMPRESSION: 1. Small left pleural effusion Signer Name: Gurmeet Nelson MD Signed: 10/12/2018 4:03 AM Workstation Name: [id number]
[2018-10-12 04:44] LABS: Basophils % (Auto) 0.1 % (0.0-1.8); Eosinophils % (Auto) 0.1 % (0.0-4.3); Hematocrit 27.2 % (30.3-42.9); Hemoglobin 8.9 gm/dl (10.1-14.3); Lymphocytes # (Auto) 1.6 K/mm3 (1.2-5.4); Lymphocytes % (Auto) 8.5 % (13.4-35.0); Mean Corpuscular HGB Conc 33 % (30-34); Mean Corpuscular Volume 90 fl (79-97); Monocytes # (Auto) 1.4 K/mm3 (0.0-0.8); Monocytes % (Auto) 7.1 % (0.0-7.3); Platelet Count 147 K/mm3 (140-440); Red Blood Count 3.04 M/mm3 (3.65-5.03); Red Cell Distribution Width 13.6 % (13.2-15.2)
[2018-10-12 04:46] LABS: ABG Base Excess 4.4 mmol/L (-2.0-3.0); ABG HCO3 29.4 mmol/L (20.0-26.0); ABG Methemoglobin 0.5 % (0.0-1.5); ABG Oxygen Saturation 96.5 % (95.0-99.0); ABG PCO2 45.5 mm Hg; ABG PH 7.428 pH Units (7.350-7.450); ABG PO2 77.9 mm Hg (80.0-90.0)
[2018-10-12 04:56] LABS: BUN/Creatinine Ratio 34; Blood Urea Nitrogen 17 mg/dL (7-17); Calcium 9.2 mg/dL (8.4-10.2); Hemolysis Index 24
[2018-10-12] MEDS: MAXIPIME/NS 2 GM/100 ML 2 GM/100 ML BAG IV SCH ×2 (06:14→22:14)
--- NOTE | 2018-10-12 08:42 | Progress Note ---
Assessment and Plan s/p cardiopulmonary arrest-OOH with ROSC Acute hyoxemic respiratory failure on MVS Acute hypercapnic respiratory failure Acute encephalopathy- metabolic Sepsis Aspiration pneumonia LLL Myoclonic jerks, post arrest Atrial fibrillation with RVR (I have had an extended discussion with family regarding goals of care and expr essing a certain degree of pessimism for full neurologic recovery) - change Versed to prn - reduce set rate on MVS to 10/min - discontinue cedillo catheter - add prn albuterol nebs - VAP bundle addressed - continue daily SAT and SBT assessment - wean supplemental O2 to keep O2 sats > 90% - follow 2D ECHO - VTE prophylaxis - Stress ulcer prophylaxis - Continue OGT for nutrition and oral medications - Tube feeding for nutritional support - continue accuchecks with glycemic control per SSI for target blood glucose 140-180mg/dL - follow official EEG report - continue empiric antibiotics for aspiration pneumonia (MRSA and GNR coverage re: recent health care facility associations) - resume chronic home medications per attending - continue Midazolam for sedation and seizure management - continue Keppra - neurology evaluation ongoing - continue mobility protocols / off loading for pressure ulcer prevention - Critical care bundles addressed - continue Seizure precautions - fall precautions - neuro-checks per RN - continue other care per attending / other consultants CONDITION: CRITICAL PROGNOSIS: GUARDED TO GRAVE CODE STATUS: FULL CODE The high probability of a clinically significant, sudden or life threatening deterioration of the [Neurology Respiratory, Cardiovascular] system(s) required my full and direct attention, intervention and personal management. The aggregate critical care time was [45] minutes. This time is in addition to time spent performing reported procedures but includes the following: [x] Data Review and interpretation [x] Patient assessment and monitoring of vital signs [x] Documentation [x] Medication orders and management Subjective Date of service: 10/12/18 Principal diagnosis: Cardiac arrest with ROSC; Ac hypoxemic resp failure; Ac. encephalopathy Interval history: Follow up for: OOH cardiac arrest with ROSC; acute hypoxic-hypercapnic respiratory failure; myoclonic jerks; acute metabolic encephalopathy Seen and examined at bedside; 24hour events reviewed; nursing and respiratory care staff consulted; no adverse overnight events reported to me; resting peacefully in bed; s/p EEG; AMS is persistent; no emesis or overt aspiration; no seizures Objective Vital Signs - 12hr 10/11/18 10/11/18 10/11/18 21:00 22:00 23:00 Temperature Pulse Rate 98 H 98 H 96 H Pulse Rate [ From Monitor] Respiratory 14 14 14 Rate Blood Pressure 119/50 122/51 124/50 O2 Sat by Pulse 100 99 100 Oximetry 10/12/18 10/12/18 10/12/18 00:00 00:10 00:11 Temperature 100.1 F H Pulse Rate 96 H 100 H 98 H Pulse Rate [ 96 H From Monitor] Respiratory 14 Rate Blood Pressure 126/51 126/51 126/51 O2 Sat by Pulse 100 100 Oximetry 10/12/18 10/12/18 10/12/18 01:00 02:00 03:00 Temperature Pulse Rate 92 H 93 H 86 Pulse Rate [ From Monitor] Respiratory 14 14 14 Rate Blood Pressure 123/47 126/44 120/45 O2 Sat by Pulse 100 100 100 Oximetry 10/12/18 10/12/18 10/12/18 03:48 04:00 04:35 Temperature 100.9 F H Pulse Rate 92 H 91 H 89 Pulse Rate [ 89 From Monitor] Respiratory 14 Rate Blood Pressure 120/45 131/52 O2 Sat by Pulse 100 100 Oximetry 10/12/18 10/12/18 10/12/18 05:00 06:00 06:15 Temperature Pulse Rate 91 H 91 H 92 H Pulse Rate [ From Monitor] Respiratory 14 14 Rate Blood Pressure 129/42 152/50 152/50 O2 Sat by Pulse 100 99 Oximetry 10/12/18 07:09 Temperature Pulse Rate 98 H Pulse Rate [ From Monitor] Respiratory Rate Blood Pressure 155/50 O2 Sat by Pulse 99 Oximetry Constitutional: appears uncomfortable, other (+ myoclonic jerks during sedation vacations) Eyes: non-icteric ENT: oropharynx moist, other (ETT at 23cm to MVS) Neck: supple, no lymphadenopathy, no JVD Effort: mildly labored Ascultation: Bilateral: diminished breath sounds, rhonchi Percussion: Bilateral: not dull Cardiovascular: other (irregular, tacycardia, S1,S2) Gastrointestinal: normoactive bowel sounds, soft, non-tender, non-distended Integumentary: normal Extremities: no cyanosis, no edema, pink and warm, pulses normal Neurologic: unable to assess, other (posturing to painful stimuli, Pupils are minimally reactive) Psychiatric: other (unable to assess) CBC and BMP: 10/13/18 02:30 10/13/18 02:30 ABG, PT/INR, D-dimer: ABG POC ABG pH 7.602 (7.35-7.45) H 10/10/18 04:24 ABG pH 7.428 pH Units (7.350-7.450) 10/12/18 03:56 ABG pCO2 45.5 mm Hg 10/12/18 03:56 POC ABG pO2 170 (80-105) H 10/10/18 04:24 ABG pO2 77.9 mm Hg (80.0-90.0) L 10/12/18 03:56 POC ABG HCO3 28.4 (22-26 mml/L) 10/10/18 04:24 POC ABG Total CO2 29 (23-27mmol/L) 10/10/18 04:24 POC ABG O2 Sat 100 10/10/18 04:24 ABG O2 Saturation 96.5 % (95.0-99.0) 10/12/18 03:56 PT/INR, D-dimer PT 16.6 Sec. (12.2-14.9) H 10/09/18 10:50 INR 1.38 (0.87-1.13) H 10/09/18 10:50 Abnormal lab findings: Abnormal Labs 10/09/18 10/09/18 10/09/18 10:14 10:50 10:50 WBC RBC Hgb Hct RDW Lymph % (Auto) [place] # Seg Neutrophils % Seg Neuts % (Manual) Lymphocytes % (Manual) Seg Neutrophils # Seg Neutrophils # Man Monocytes # (Manual) PT 16.6 H INR 1.38 H APTT 39.4 H POC ABG pH POC ABG pCO2 POC ABG pO2 ABG pO2 ABG HCO3 ABG Base Excess ABG Hemoglobin Oxyhemoglobin Chloride 90.3 L BUN 21 H Creatinine Glucose 315 H POC Glucose 344 H Lactic Acid Magnesium AST 51 H ALT 67 H Total Creatine Kinase Total Protein 5.3 L Albumin 3.0 L Urine WBC (Auto) Salicylates Acetaminophen 10/09/18 10/09/18 10/09/18 10:50 10:50 10:50 WBC RBC Hgb Hct RDW Lymph % (Auto) [place] # Seg Neutrophils % Seg Neuts % (Manual) Lymphocytes % (Manual) Seg Neutrophils # Seg Neutrophils # Man Monocytes # (Manual) PT INR APTT POC ABG pH POC ABG pCO2 POC ABG pO2 ABG pO2 ABG HCO3 ABG Base Excess ABG Hemoglobin Oxyhemoglobin Chloride BUN Creatinine Glucose POC Glucose Lactic Acid Magnesium 3.70 H AST ALT Total Creatine Kinase 171 H Total Protein Albumin Urine WBC (Auto) Salicylates < 0.3 L Acetaminophen < 5.0 L 10/09/18 10/09/18 10/09/18 10:50 10:55 11:38 WBC 31.3 H RBC Hgb Hct RDW 13.0 L Lymph % (Auto) [place] # Seg Neutrophils % Seg Neuts % (Manual) 91.5 H Lymphocytes % (Manual) 4.5 L Seg Neutrophils # Seg Neutrophils # Man 28.6 H Monocytes # (Manual) 1.1 H PT INR APTT POC ABG pH 7.243 L POC ABG pCO2 68.0 H POC ABG pO2 389 H ABG pO2 ABG HCO3 ABG Base Excess ABG Hemoglobin Oxyhemoglobin Chloride BUN Creatinine Glucose POC Glucose Lactic Acid 9.30 H* Magnesium AST ALT Total Creatine Kinase Total Protein Albumin Urine WBC (Auto) Salicylates Acetaminophen 10/09/18 10/09/18 10/09/18 12:12 15:28 16:27 WBC RBC Hgb Hct RDW Lymph % (Auto) [place] # Seg Neutrophils % Seg Neuts % (Manual) Lymphocytes % (Manual) Seg Neutrophils # Seg Neutrophils # Man Monocytes # (Manual) PT INR APTT POC ABG pH 7.598 H POC ABG pCO2 POC ABG pO2 61 L ABG pO2 ABG HCO3 ABG Base Excess ABG Hemoglobin Oxyhemoglobin Chloride BUN Creatinine Glucose POC Glucose 173 H Lactic Acid Magnesium AST ALT Total Creatine Kinase Total Protein Albumin Urine WBC (Auto) 8.0 H Salicylates Acetaminophen 10/09/18 10/09/18 10/09/18 16:44 16:44 18:38 WBC RBC Hgb Hct RDW Lymph % (Auto) [place] # Seg Neutrophils % Seg Neuts % (Manual) Lymphocytes % (Manual) Seg Neutrophils # Seg Neutrophils # Man Monocytes # (Manual) PT INR APTT POC ABG pH POC ABG pCO2 POC ABG pO2 ABG pO2 ABG HCO3 ABG Base Excess ABG Hemoglobin Oxyhemoglobin Chloride BUN Creatinine Glucose POC Glucose 177 H Lactic Acid 3.80 H* 3.70 H* Magnesium AST ALT Total Creatine Kinase Total Protein Albumin Urine WBC (Auto) Salicylates Acetaminophen 10/10/18 10/10/18 10/10/18 00:33 04:24 05:32 WBC RBC Hgb Hct RDW Lymph % (Auto) [place] # Seg Neutrophils % Seg Neuts % (Manual) Lymphocytes % (Manual) Seg Neutrophils # Seg Neutrophils # Man Monocytes # (Manual) PT INR APTT POC ABG pH 7.602 H POC ABG pCO2 POC ABG pO2 170 H ABG pO2 ABG HCO3 ABG Base Excess ABG Hemoglobin Oxyhemoglobin Chloride BUN Creatinine Glucose POC Glucose 177 H 190 H Lactic Acid Magnesium AST ALT Total Creatine Kinase Total Protein Albumin Urine WBC (Auto) Salicylates Acetaminophen 10/10/18 10/10/18 10/10/18 07:54 07:54 12:18 WBC 38.6 H RBC Hgb Hct RDW Lymph % (Auto) [place] # Seg Neutrophils % Seg Neuts % (Manual) Lymphocytes % (Manual) Seg Neutrophils # Seg Neutrophils # Man Monocytes # (Manual) PT INR APTT POC ABG pH POC ABG pCO2 POC ABG pO2 ABG pO2 ABG HCO3 ABG Base Excess ABG Hemoglobin Oxyhemoglobin Chloride BUN 31 H Creatinine Glucose 124 H POC Glucose 151 H Lactic Acid Magnesium AST ALT Total Creatine Kinase Total Protein Albumin Urine WBC (Auto) Salicylates Acetaminophen 10/10/18 10/10/18 10/11/18 18:17 23:09 03:40 WBC RBC Hgb Hct RDW Lymph % (Auto) [place] # Seg Neutrophils % Seg Neuts % (Manual) Lymphocytes % (Manual) Seg Neutrophils # Seg Neutrophils # Man Monocytes # (Manual) PT INR APTT POC ABG pH POC ABG pCO2 POC ABG pO2 ABG pO2 91.1 H ABG HCO3 28.8 H ABG Base Excess ABG Hemoglobin 7.6 L Oxyhemoglobin Chloride BUN Creatinine Glucose POC Glucose 132 H 124 H Lactic Acid Magnesium AST ALT Total Creatine Kinase Total Protein Albumin Urine WBC (Auto) Salicylates Acetaminophen 10/11/18 10/11/18 10/11/18 04:45 04:45 06:50 WBC 25.8 H RBC 3.41 L Hgb Hct RDW Lymph % (Auto) [place] # Seg Neutrophils % Seg Neuts % (Manual) 83.0 H Lymphocytes % (Manual) Seg Neutrophils # Seg Neutrophils # Man 21.4 H Monocytes # (Manual) PT INR APTT POC ABG pH POC ABG pCO2 POC ABG pO2 ABG pO2 ABG HCO3 ABG Base Excess ABG Hemoglobin Oxyhemoglobin Chloride BUN 26 H Creatinine 0.6 L Glucose 134 H POC Glucose 134 H Lactic Acid Magnesium AST ALT Total Creatine Kinase Total Protein Albumin Urine WBC (Auto) Salicylates Acetaminophen 10/11/18 10/11/18 10/12/18 13:10 18:08 00:25 WBC RBC Hgb Hct RDW Lymph % (Auto) [place] # Seg Neutrophils % Seg Neuts % (Manual) Lymphocytes % (Manual) Seg Neutrophils # Seg Neutrophils # Man Monocytes # (Manual) PT INR APTT POC ABG pH POC ABG pCO2 POC ABG pO2 ABG pO2 ABG HCO3 ABG Base Excess ABG Hemoglobin Oxyhemoglobin Chloride BUN Creatinine Glucose POC Glucose 160 H 166 H 136 H Lactic Acid Magnesium AST ALT Total Creatine Kinase Total Protein Albumin Urine WBC (Auto) Salicylates Acetaminophen 10/12/18 10/12/18 10/12/18 03:56 04:17 04:17 WBC 19.2 H RBC 3.04 L Hgb 8.9 L Hct 27.2 L RDW Lymph % (Auto) 8.5 L [place] # 1.4 H Seg Neutrophils % 84.2 H Seg Neuts % (Manual) Lymphocytes % (Manual) Seg Neutrophils # 16.2 H Seg Neutrophils # Man Monocytes # (Manual) PT INR APTT POC ABG pH POC ABG pCO2 POC ABG pO2 ABG pO2 77.9 L ABG HCO3 29.4 H ABG Base Excess 4.4 H ABG Hemoglobin 10.2 L Oxyhemoglobin 94.7 L Chloride BUN Creatinine 0.5 L Glucose 139 H POC Glucose Lactic Acid Magnesium AST ALT Total Creatine Kinase Total Protein Albumin Urine WBC (Auto) Salicylates Acetaminophen 10/12/18 05:51 WBC RBC Hgb Hct RDW Lymph % (Auto) [place] # Seg Neutrophils % Seg Neuts % (Manual) Lymphocytes % (Manual) Seg Neutrophils # Seg Neutrophils # Man Monocytes # (Manual) PT INR APTT POC ABG pH POC ABG pCO2 POC ABG pO2 ABG pO2 ABG HCO3 ABG Base Excess ABG Hemoglobin Oxyhemoglobin Chloride BUN Creatinine Glucose POC Glucose 163 H Lactic Acid Magnesium AST ALT Total Creatine Kinase Total Protein Albumin Urine WBC (Auto) Salicylates Acetaminophen Chest x-ray: image reviewed (small left pleural effusion) Allied health notes reviewed: nursing
--- NOTE | 2018-10-12 09:46 | Progress Note ---
Assessment and Plan Optimize BPs and HR - initiate lopressor, cont cardizem. CXR with small left pleural effusion, also visualized on echo. Can consider gentle diuresis, will defer to pulmonary. Pt with suspected anoxic brain injury. Overall poor prognosis. The patient has been seen in conjunction with Dr. Laird who agrees with the assessment and plan of care. - Patient Problems (1) Cardiac arrest Current Visit: Yes Status: Acute (2) Acute respiratory failure Current Visit: Yes Status: Acute (3) Pneumonia Current Visit: Yes Status: Acute (4) Lactic acid acidosis Current Visit: Yes Status: Acute (5) Altered mental status Current Visit: Yes Status: Acute (6) Paroxysmal atrial fibrillation Current Visit: Yes Status: Chronic (7) HTN (hypertension) Current Visit: Yes Status: Chronic (8) Elevated LFTs Current Visit: Yes Status: Acute (9) Sleep apnea Current Visit: Yes Status: Chronic Subjective Date of service: 10/12/18 Principal diagnosis: cardiac arrest Interval history: pt remains intubated, unresponsive, sedated. in SR HR 90s on tele. family at bedside. Objective Last Vital Signs Temp 100.9 F H 10/12/18 04:00 Pulse 98 H 10/12/18 07:09 Resp 14 10/12/18 06:00 BP 155/50 10/12/18 07:09 Pulse Ox 99 10/12/18 07:09 - Physical Examination General: Other (intubated, unresponsive) Cardiac: Positive: Reg Rate and Rhythm, S1/S2 Lungs: Positive: Decreased Breath Sounds, Ventilated Respirations Neuro: Positive: Other (intubated, unresponsive) Skin: Negative: Rash Extremities: Absent: edema - Labs and Meds CBC 10/12/18 Range/Units 04:17 WBC 19.2 H (4.5-11.0) K/mm3 RBC 3.04 L (3.65-5.03) M/mm3 Hgb 8.9 L (10.1-14.3) gm/dl Hct 27.2 L (30.3-42.9) % Plt Count 147 (140-440) K/mm3 Lymph # 1.6 (1.2-5.4) K/mm3 [place] # 1.4 H (0.0-0.8) K/mm3 Eos # 0.0 (0.0-0.4) K/mm3 Baso # 0.0 (0.0-0.1) K/mm3 Comprehensive Metabolic Panel 10/12/18 Range/Units 04:17 Sodium 139 (137-145) mmol/L Potassium 4.0 (3.6-5.0) mmol/L Chloride 103.1 (98-107) mmol/L Carbon Dioxide 28 (22-30) mmol/L BUN 17 (7-17) mg/dL Creatinine 0.5 L (0.7-1.2) mg/dL Glucose 139 H (65-100) mg/dL Calcium 9.2 (8.4-10.2) mg/dL - Imaging and Cardiology EKG: report reviewed, image reviewed Echo: report reviewed ( EF 60-65%, mild LVH, impaired relaxation, mild TR, mild pulm HTN RVSP 48mmHg, small pericardial effusion, left pleural effusion. ) - Telemetry EKG Rhythm: Sinus Rhythm
[2018-10-12] MEDS: KEPPRA PO SCH ×2 (10:52→22:18)
[2018-10-12] MEDS: LOPRESSOR PO SCH ×2 (10:56→22:18)
[2018-10-12] MEDS: ELIQUIS PO SCH ×2 (10:57→22:24)
[2018-10-12] MEDS: PEPCID PO SCH (10:59)
[2018-10-12] MEDS ORDERED: PROVENTIL IH PRN (12:20)
[2018-10-12] MEDS ORDERED: VERSED IV PRN (12:21)
--- NOTE | 2018-10-12 13:53 | Progress Note ---
Assessment and Plan Cultures: 10/09 blood cultures: NGTD 10/09 urine cultures: Negative 10/09 sputum cultures: Negative A/P: 68 yo F PMHx HTN, GERD, SVT/Atrial Flutter on AC admitted with cardiac arrest, now with aspiration pneumonia 1. Septic shock secondary to aspiration pneumonia - Present with tachycardia and leukocytosis. While antibiotics are unlikely to improve her outcome given the anoxic brain injury, can continue them for now. Can stop vancomycin and add metronidazole for anaerobic coverage. 2. Cardiogenic shock - s/p resuscitation 3. Anoxic brain injury - poor prognosis for meaningful neurological recovery. 4. HTN 5. GERD 6. Fevers - Likely some component of central fevers given severe anoxic brain injury. Recs: - stop vancomycin - start metronidazole 500mg TID - continue cefepime - Prognosis: grim Thank you for the consult, we will continue to follow. Mumtaz Webster MD [facility] ([facility]) M: [phone] O: [phone] F: [phone] Subjective Date of service: 10/12/18 Principal diagnosis: Cardiac arrest with ROSC; Ac hypoxemic resp failure; Ac. encephalopathy Interval history: Remains non-responsive. Objective - Exam Narrative Exam: Constitutional: intubated, non-responsive. Head, Ears, Nose: Normocephalic, atraumatic. External ears, nose normal Eyes: Conjunctivae/corneas clear. No icterus. No ptosis. Neck: Supple, no meningeal signs Oral: dentition fair, no thrush Cardiovascular: S1, S2 normal. Respiratory: Good air entry, clear to auscultation bilaterally GI: Soft, non-tender; bowel sounds normal. No peritoneal signs. Musculoskeletal: No pedal edema, no cyanosis. Skin: No rash or abscess Hem/Lymphatic: No palpable cervical or supraclavicular nodes. No lymphangitis Neurological: intubated, non-responsive - Constitutional Vitals: Vital Signs Temp Pulse Resp BP Pulse Ox 97.7 F 80 14 141/46 92 10/12/18 12:00 10/12/18 11:48 10/12/18 06:00 10/12/18 11:48 10/12/18 11:48 Temperature -Last 24 Hours Temperature 97.7 F Temperature 99.3 F Temperature 100.9 F Temperature 100.1 F Temperature 98.8 F Temperature 98.8 F - Labs CBC & Chem 7: 10/12/18 04:17 10/12/18 04:17 Labs: Abnormal lab results 10/11/18 10/12/18 10/12/18 Range/Units 18:08 00:25 03:56 WBC (4.5-11.0) K/mm3 RBC (3.65-5.03) M/mm3 Hgb (10.1-14.3) gm/dl Hct (30.3-42.9) % Lymph % (Auto) (13.4-35.0) % Person # (0.0-0.8) K/mm3 Seg Neutrophils % (40.0-70.0) % Seg Neutrophils # (1.8-7.7) K/mm3 ABG pO2 77.9 L (80.0-90.0) mm Hg ABG HCO3 29.4 H (20.0-26.0) mmol/L ABG Base Excess 4.4 H (-2.0-3.0) mmol/L ABG Hemoglobin 10.2 L (12.0-16.0) gm/dl Oxyhemoglobin 94.7 L (95.0-99.0) % Creatinine (0.7-1.2) mg/dL Glucose (65-100) mg/dL POC Glucose 166 H 136 H (70-105) C-Reactive Protein (0.00-1.30) mg/dL 10/12/18 10/12/18 10/12/18 Range/Units 04:17 04:17 05:51 WBC 19.2 H (4.5-11.0) K/mm3 RBC 3.04 L (3.65-5.03) M/mm3 Hgb 8.9 L (10.1-14.3) gm/dl Hct 27.2 L (30.3-42.9) % Lymph % (Auto) 8.5 L (13.4-35.0) % Person # 1.4 H (0.0-0.8) K/mm3 Seg Neutrophils % 84.2 H (40.0-70.0) % Seg Neutrophils # 16.2 H (1.8-7.7) K/mm3 ABG pO2 (80.0-90.0) mm Hg ABG HCO3 (20.0-26.0) mmol/L ABG Base Excess (-2.0-3.0) mmol/L ABG Hemoglobin (12.0-16.0) gm/dl Oxyhemoglobin (95.0-99.0) % Creatinine 0.5 L (0.7-1.2) mg/dL Glucose 139 H (65-100) mg/dL POC Glucose 163 H (70-105) C-Reactive Protein (0.00-1.30) mg/dL 10/12/18 10/12/18 Range/Units 11:46 13:03 WBC (4.5-11.0) K/mm3 RBC (3.65-5.03) M/mm3 Hgb (10.1-14.3) gm/dl Hct (30.3-42.9) % Lymph % (Auto) (13.4-35.0) % Person # (0.0-0.8) K/mm3 Seg Neutrophils % (40.0-70.0) % Seg Neutrophils # (1.8-7.7) K/mm3 ABG pO2 (80.0-90.0) mm Hg ABG HCO3 (20.0-26.0) mmol/L ABG Base Excess (-2.0-3.0) mmol/L ABG Hemoglobin (12.0-16.0) gm/dl Oxyhemoglobin (95.0-99.0) % Creatinine (0.7-1.2) mg/dL Glucose (65-100) mg/dL POC Glucose 162 H (70-105) C-Reactive Protein 2.70 H (0.00-1.30) mg/dL
[2018-10-12] MEDS: FLAGYL 500 MG/100 ML 500 MG/100 ML BAG IV SCH (16:26)
--- NOTE | 2018-10-12 17:33 | Progress Note ---
Assessment and Plan Assessment and plan: Septic shock. Continue pressors to maintain MAP greater than 65. Continue antibiotics per infectious disease. Left lower lobe pneumonia. Continue antibiotics. ID following. Anoxic brain injury. Follow-up EEG per Neurology. MRI findings consistent with anoxic brain injury. Keppra started per neurology twice a day for seizure prophylaxis Cardiopulmonary arrest. Echo revealed EF 60-65%, mild LVH, impaired relaxation, mild TR, mild pulm HTN RVSP 48mmHg, small pericardial effusion, left pleural effusion. Continue supportive care. S/P ACLS protocol initiation with return of cardiac rhythm Acute hypoxemic respiratory failure. Continue mechanical ventilation per pulmonary. The high probability of a clinically significant, sudden or life threatening deterioration of the [neurological and respiratory] system(s) required my full and direct attention, intervention and personal management. The aggregate critical care time was [32] minutes. This time is in addition to time spent performing reported procedures but includes the following: [x] Data Review and interpretation [x] Patient assessment and monitoring of vital signs [x] Documentation [x] Medication orders and management History Interval history: Patient remains on mechanical ventilation. Hospitalist Physical - Constitutional Vitals: Temp Pulse Resp BP Pulse Ox 99.5 F 105 H 15 149/58 94 10/12/18 15:52 10/12/18 16:00 10/12/18 16:00 10/12/18 16:00 10/12/18 16:00 General appearance: Present: severe distress, other (orally intubated) - EENT Eyes: Present: PERRL, EOM intact ENT: hearing intact, clear oral mucosa, dentition normal - Neck Neck: Present: supple, normal ROM - Respiratory Respiratory effort: normal Respiratory: bilateral: CTA - Cardiovascular Rhythm: regular Heart Sounds: Present: S1 & S2. Absent: gallop, rub - Extremities Extremities: no ischemia, No edema, Full ROM - Abdominal General gastrointestinal: soft, non-tender, non-distended, normal bowel sounds - Integumentary Integumentary: Present: clear, warm, dry - Neurologic Neurologic: CNII-XII intact, moves all extremities Results - Labs CBC & Chem 7: 10/12/18 04:17 10/12/18 04:17 Labs: Laboratory Last Values WBC 19.2 K/mm3 (4.5-11.0) H 10/12/18 04:17 RBC 3.04 M/mm3 (3.65-5.03) L 10/12/18 04:17 Hgb 8.9 gm/dl (10.1-14.3) L 10/12/18 04:17 Hct 27.2 % (30.3-42.9) L 10/12/18 04:17 MCV 90 fl (79-97) 10/12/18 04:17 MCH 29 pg (28-32) 10/12/18 04:17 MCHC 33 % (30-34) 10/12/18 04:17 RDW 13.6 % (13.2-15.2) 10/12/18 04:17 Plt Count 147 K/mm3 (140-440) 10/12/18 04:17 Lymph % (Auto) 8.5 % (13.4-35.0) L 10/12/18 04:17 Henry % (Auto) 7.1 % (0.0-7.3) 10/12/18 04:17 Eos % (Auto) 0.1 % (0.0-4.3) 10/12/18 04:17 Baso % (Auto) 0.1 % (0.0-1.8) 10/12/18 04:17 Lymph # 1.6 K/mm3 (1.2-5.4) 10/12/18 04:17 Henry # 1.4 K/mm3 (0.0-0.8) H 10/12/18 04:17 Eos # 0.0 K/mm3 (0.0-0.4) 10/12/18 04:17 Baso # 0.0 K/mm3 (0.0-0.1) 10/12/18 04:17 Add Manual Diff Complete 10/11/18 04:45 Total Counted 100 10/11/18 04:45 Seg Neutrophils % 84.2 % (40.0-70.0) H 10/12/18 04:17 Seg Neuts % (Manual) 83.0 % (40.0-70.0) H 10/11/18 04:45 0 % 10/11/18 04:45 14.0 % (13.4-35.0) 10/11/18 04:45 Reactive Lymphs % (Man) 0 % 10/11/18 04:45 3.0 % (0.0-7.3) 10/11/18 04:45 0 % (0.0-4.3) 10/11/18 04:45 0 % (0.0-1.8) 10/11/18 04:45 0 % 10/11/18 04:45 0 % 10/11/18 04:45 0 % 10/11/18 04:45 0 % 10/11/18 04:45 Nucleated RBC % Not Reportable 10/11/18 04:45 Seg Neutrophils # 16.2 K/mm3 (1.8-7.7) H 10/12/18 04:17 Seg Neutrophils # Man 21.4 K/mm3 (1.8-7.7) H 10/11/18 04:45 Band Neutrophils # 0.0 K/mm3 10/11/18 04:45 3.6 K/mm3 (1.2-5.4) 10/11/18 04:45 Abs React Lymphs (Man) 0.0 K/mm3 10/11/18 04:45 0.8 K/mm3 (0.0-0.8) 10/11/18 04:45 0.0 K/mm3 (0.0-0.4) 10/11/18 04:45 0.0 K/mm3 (0.0-0.1) 10/11/18 04:45 0.0 K/mm3 10/11/18 04:45 0.0 K/mm3 10/11/18 04:45 0.0 K/mm3 10/11/18 04:45 Blast Cells # 0.0 K/mm3 10/11/18 04:45 WBC Morphology Not Reportable 10/11/18 04:45 Hypersegmented Neuts Not Reportable 10/11/18 04:45 Hyposegmented Neuts Not Reportable 10/11/18 04:45 Hypogranular Neuts Not Reportable 10/11/18 04:45 Not Reportable 10/11/18 04:45 Not Reportable 10/11/18 04:45 Not Reportable 10/11/18 04:45 Not Reportable 10/11/18 04:45 Not Reportable 10/11/18 04:45 Not Reportable 10/11/18 04:45 Consistent w auto 10/11/18 04:45 Not Reportable 10/11/18 04:45 Plt Clumps, EDTA Not Reportable 10/11/18 04:45 Not Reportable 10/11/18 04:45 Not Reportable 10/11/18 04:45 Not Reportable 10/11/18 04:45 Plt Morphology Comment Not Reportable 10/11/18 04:45 RBC Morphology Not Reportable 10/11/18 04:45 Dimorphic RBCs Not Reportable 10/11/18 04:45 Not Reportable 10/11/18 04:45 Not Reportable 10/11/18 04:45 Not Reportable 10/11/18 04:45 Few 10/11/18 04:45 Not Reportable 10/11/18 04:45 Not Reportable 10/11/18 04:45 Not Reportable 10/11/18 04:45 Not Reportable 10/11/18 04:45 Not Reportable 10/11/18 04:45 Not Reportable 10/11/18 04:45 Not Reportable 10/11/18 04:45 Few 10/11/18 04:45 Not Reportable 10/11/18 04:45 Not Reportable 10/11/18 04:45 Not Reportable 10/11/18 04:45 Not Reportable 10/11/18 04:45 Not Reportable 10/11/18 04:45 Not Reportable 10/11/18 04:45 Not Reportable 10/11/18 04:45 Acanthocytes (Spur) Not Reportable 10/11/18 04:45 Rouleaux Not Reportable 10/11/18 04:45 Not Reportable 10/11/18 04:45 Not Reportable 10/11/18 04:45 Not Reportable 10/11/18 04:45 Not Reportable 10/11/18 04:45 Hem Pathologist Commnt No 10/11/18 04:45 PT 16.6 Sec. (12.2-14.9) H 10/09/18 10:50 INR 1.38 (0.87-1.13) H 10/09/18 10:50 APTT 39.4 Sec. (24.2-36.6) H 10/09/18 10:50 POC ABG pH 7.602 (7.35-7.45) H 10/10/18 04:24 ABG pH 7.428 pH Units (7.350-7.450) 10/12/18 03:56 POC ABG pCO2 68.0 (35-45) H 10/09/18 11:38 ABG pCO2 45.5 mm Hg 10/12/18 03:56 POC ABG pO2 170 (80-105) H 10/10/18 04:24 ABG pO2 77.9 mm Hg (80.0-90.0) L 10/12/18 03:56 POC ABG HCO3 28.4 (22-26 mml/L) 10/10/18 04:24 ABG HCO3 29.4 mmol/L (20.0-26.0) H 10/12/18 03:56 POC ABG Total CO2 29 (23-27mmol/L) 10/10/18 04:24 POC ABG O2 Sat 100 10/10/18 04:24 ABG O2 Saturation 96.5 % (95.0-99.0) 10/12/18 03:56 ABG O2 Content 13.6 (0.0-44) 10/12/18 03:56 POC ABG Base Excess 7 ((-2) - (+3)mmol/L) 10/10/18 04:24 ABG Base Excess 4.4 mmol/L (-2.0-3.0) H 10/12/18 03:56 ABG Hemoglobin 10.2 gm/dl (12.0-16.0) L 10/12/18 03:56 ABG Carboxyhemoglobin 1.4 % (0.0-5.0) 10/12/18 03:56 ABG Methemoglobin 0.5 % (0.0-1.5) 10/12/18 03:56 94.7 % (95.0-99.0) L 10/12/18 03:56 21 % 10/12/18 03:56 Sodium 139 mmol/L (137-145) 10/12/18 04:17 Potassium 4.0 mmol/L (3.6-5.0) 10/12/18 04:17 Chloride 103.1 mmol/L (98-107) 10/12/18 04:17 Carbon Dioxide 28 mmol/L (22-30) 10/12/18 04:17 12 mmol/L 10/12/18 04:17 BUN 17 mg/dL (7-17) 10/12/18 04:17 0.5 mg/dL (0.7-1.2) L 10/12/18 04:17 Estimated GFR > 60 ml/min 10/12/18 04:17 34 % 10/12/18 04:17 Glucose 139 mg/dL (65-100) H 10/12/18 04:17 POC Glucose 162 (70-105) H 10/12/18 11:46 Lactic Acid 1.90 mmol/L (0.7-2.0) 10/09/18 20:50 Calcium 9.2 mg/dL (8.4-10.2) 10/12/18 04:17 Magnesium 3.70 mg/dL (1.7-2.3) H 10/09/18 10:50 0.30 mg/dL (0.1-1.2) 10/09/18 10:50 AST 51 units/L (5-40) H 10/09/18 10:50 ALT 67 units/L (7-56) H 10/09/18 10:50 60 units/L (35-129) 10/09/18 10:50 171 units/L (30-135) H 10/09/18 10:50 < 0.010 ng/mL (0.00-0.029) 10/09/18 10:50 2.70 mg/dL (0.00-1.30) H 10/12/18 13:03 5.3 g/dL (6.3-8.2) L 10/09/18 10:50 3.0 g/dL (3.9-5) L 10/09/18 10:50 1.3 % 10/09/18 10:50 Yellow (Yellow) 10/09/18 12:12 Hazy (Clear) 10/09/18 12:12 7.0 (5.0-7.0) 10/09/18 12:12 Ur Specific [place] 1.011 (1.003-1.030) 10/09/18 12:12 100 mg/dl mg/dL (Negative) 10/09/18 12:12 150 mg/dL (Negative) 10/09/18 12:12 Neg mg/dL (Negative) 10/09/18 12:12 Sm (Negative) 10/09/18 12:12 Neg (Negative) 10/09/18 12:12 Neg (Negative) 10/09/18 12:12 < 2.0 mg/dL (<2.0) 10/09/18 12:12 Ur Leukocyte Esterase Neg (Negative) 10/09/18 12:12 8.0 /HPF (0.0-6.0) H 10/09/18 12:12 7.0 /HPF (0.0-6.0) 10/09/18 12:12 Few /HPF 10/09/18 12:12 Salicylates < 0.3 mg/dL (2.8-20.0) L 10/09/18 10:50 Acetaminophen < 5.0 ug/mL (10.0-30.0) L 10/09/18 10:50 Plasma/Serum Alcohol < 0.01 % (0-0.07) 10/09/18 10:50 Active Medications - Current Medications Current Medications: Generic Name Dose Route Start Last Admin Trade Name Freq PRN Reason Stop Dose Admin Acetaminophen 650 mg 10/10/18 00:18 10/10/18 00:34 Tylenol [place] 650 mg Q4H PRN Administration Pain, Mild (1-3) Albuterol 2.5 mg 10/12/18 12:20 Proventil IH Q4HRT PRN Shortness Of Breath Lipase/Protease/Amylase 1 each 10/10/18 10:[address] 10,500 Unit FEEDTUBE PRN PRN For Clogged Feeding Tube Apixaban 5 mg 10/09/18 22:00 10/12/18 10:57 Eliquis PO 5 mg BID SAUNDRA Administration Protocol Diltiazem HCl 60 mg 10/10/18 12:00 10/12/18 06:15 Cardizem PO 60 mg Q6HR SAUNDRA Administration Famotidine 20 mg 10/10/18 22:00 10/12/18 10:59 Pepcid PO 20 mg BID SAUNDRA Administration Fentanyl 50 mcg 10/09/18 10:48 10/09/18 14:24 Sublimaze IV 50 mcg Q10MIN PRN Administration ANALGESIA Hydrophilic Ointment 1 applic 10/09/18 10:48 Vaseline Lip Therapy TP Q2HR PRN Dry Lips Norepinephrine 4 mg in 250 mls @ 7.5 mls/hr 10/09/18 11:00 10/10/18 05:21 Levophed Drip 4 Mg/Ns 250 Ml IV 0 mcg/min TITR SAUNDRA 0 mls/hr Titration Protocol 2 MCG/MIN Fentanyl Citrate 2,000 mcg in 100 mls @ 3.561 mls/hr 10/09/18 11:00 Fentanyl Drip Premix IV TITR SAUNDRA Protocol 1 MCG/KG/HR Midazolam HCl 100 mg/ Sodium 100 mls @ 2 mls/hr 10/09/18 11:00 10/11/18 10:50 Chloride IV 2 mg/hr TITR SAUNDRA 2 mls/hr Administration Protocol 2 MG/HR Vasopressin 20 unit/ Sodium 101 mls @ 9.09 mls/hr 10/09/18 15:00 10/10/18 06:16 Chloride IV 0 units/min TITR SAUNDRA 0 mls/hr Titration Protocol 0.03 UNITS/MIN Cefepime HCl 2 gm in 100 mls @ 200 mls/hr 10/10/18 10:00 10/12/18 06:14 Maxipime/Ns 2 Gm/100 Ml IV 200 mls/hr Q8HR SAUNDRA Administration Protocol Metronidazole 500 mg in 100 mls @ 100 mls/hr 10/12/18 16:00 10/12/18 16:26 Flagyl 500 Mg/100 Ml IV 100 mls/hr Q8H SAUNDRA Administration Protocol Insulin Human Lispro 0 unit 10/10/18 12:00 10/12/18 06:15 Humalog SUB-Q 2 unit Q6HR SAUNDRA Administration Protocol Levetiracetam 500 mg 10/11/18 10:00 10/12/18 10:52 Keppra PO 500 mg BID SAUNDRA Administration Metoprolol Tartrate 5 mg 10/10/18 09:21 Lopressor IV Q6HR PRN Hypertension Metoprolol Tartrate 25 mg 10/12/18 10:00 10/12/18 10:56 Lopressor PO 25 mg BID SAUNDRA Administration Midazolam HCl 2 mg 10/12/18 12:21 Versed IV Q2H PRN Sedation Multi-Ingred Cream/Lotion/Oil/Oint 1 applic 10/09/18 10:48 10/09/18 18:29 Artificial Tears Ophth Oint OU 1 applic Q4HR PRN Administration Dry Eye(s) Simple Syrup 15 ml 10/10/18 10:31 Simple Syrup FEEDTUBE PRN PRN Hypoglycemia Simple Syrup 30 ml 10/10/18 10:31 Simple Syrup FEEDTUBE PRN PRN Hypoglycemia Sodium Bicarbonate 325 mg 10/10/18 10:31 Sodium Bicarbonate FEEDTUBE PRN PRN For Clogged Feeding Tube Sodium Chloride 5 ml 10/09/18 10:48 Nacl 0.9% 500 Ml IV DIRECT PRN ARTERIAL MIXER DIAMOND POWDER Sodium Chloride 10 ml 10/09/18 22:00 10/11/18 22:15 Sodium Chloride Flush Syringe 10 Ml IV 10 ml BID SAUNDRA Administration Sodium Chloride 10 ml 10/09/18 13:07 Sodium Chloride Flush Syringe 10 Ml IV PRN PRN LINE FLUSH Nutrition/Malnutrition Assess - Dietary Evaluation Nutrition/Malnutrition Findings: Nutrition Notes Start: 10/10/18 08 :09 Freq: Status: Active Protocol: Document 10/11/18 10:38 LM (Rec: 10/11/18 10:46 LM [email or web address]) Nutrition Notes Initial or Follow up Reassessment Current Diagnosis Sepsis,Hypertension, Respiratory Failure Other Pertinent Diagnosis Anoxic brain injury Current Diet Vital AF 1.2 at 50 ml/hr Labs/Tests BG 134 BUN 26 Cr 0.6 Pertinent Medications Reviewed Height 5 ft 2 in Weight 63.7 kg [place] Body Weight (kg) 50.00 BMI 25.7 Subjective/Other Information Vital AF running at 40 ml/hr. Pt is tolerating TF. Percent of energy/protein needs met: 85%/95% Burn Absent Trauma Absent #1 Nutrition Diagnosis Inadequate oral intake Diagnosis Progress(for reassessment Continues documentation) Is patient on ventilator? Yes Is Patient Ambulatory and/or Out of Bed No REE-([facility]-confined to bed) 1361.868 Calculation Used for Recommendations [facility] Additional Notes Protein: 76-127g (1.2-2 g/kg) Fluid: 1 ml/kcal Nutrition Intervention Change Diet Order: TF Nutrition Support: Vital AF 1.2 at 50 ml/hr Flush 75 ml/hr Kcal 1,440 Protein (gm) 90 Fluid (mL) 973 Goal #1 Meet at least 75% of energy and protein needs Anticipated Discharge Needs: Unable to determine at this time Follow-Up By: 10/13/18 Additional Comments F/U for TF rate/tolerance
[2018-10-12] MEDS: SODIUM CHLORIDE FLUSH SYRINGE 10 ML IV SCH (22:18)
[2018-10-13] MEDS: FLAGYL 500 MG/100 ML 500 MG/100 ML BAG IV SCH ×3 (00:02→15:54)
[2018-10-13] MEDS: CARDIZEM PO SCH ×4 (00:03→18:15)
[2018-10-13] MEDS: HumaLOG SUB-Q SCH ×4 (00:04→18:15)
[2018-10-13] MEDS: PEPCID PO SCH ×3 (00:04→22:23)
--- NOTE | 2018-10-13 03:03 | XRay Report ---
CHEST 1 VIEW 10/13/2018 2:00 AM INDICATION / CLINICAL INFORMATION: follow up respiratory failure. COMPARISON: Chest x-ray 10/12/2018 FINDINGS: SUPPORT DEVICES: ET tube and NG tube again project in expected position. HEART / MEDIASTINUM: No significant abnormality. LUNGS / PLEURA: Small left pleural effusion and left basilar parenchymal disease, unchanged. Right susana ng clear. No significant pulmonary or pleural abnormality. No pneumothorax. ADDITIONAL FINDINGS: No significant additional findings. IMPRESSION: 1. Stable left basilar pleural-parenchymal disease Signer Name: Gurmeet Nelson MD Signed: 10/13/2018 2:59 AM Workstation Name: [id number]
[2018-10-13 03:19] LABS: Basophils % (Auto) 0.2 % (0.0-1.8); Eosinophils # (Auto) 0.1 K/mm3 (0.0-0.4); Eosinophils % (Auto) 0.5 % (0.0-4.3); Hematocrit 28.2 % (30.3-42.9); Hemoglobin 9.2 gm/dl (10.1-14.3); Lymphocytes # (Auto) 1.6 K/mm3 (1.2-5.4); Lymphocytes % (Auto) 8.1 % (13.4-35.0); Mean Corpuscular HGB Conc 33 % (30-34); Mean Corpuscular Volume 90 fl (79-97); Monocytes # (Auto) 1.6 K/mm3 (0.0-0.8); Red Blood Count 3.12 M/mm3 (3.65-5.03); Red Cell Distribution Width 13.9 % (13.2-15.2)
[2018-10-13 03:33] LABS: ABG Methemoglobin 0.6 % (0.0-1.5); ABG Oxygen Saturation 98.5 % (95.0-99.0); ABG PCO2 57.8 mm Hg; ABG PO2 81.5 mm Hg (80.0-90.0)
[2018-10-13 03:35] LABS: Platelet Count 143 K/mm3 (140-440)
[2018-10-13 04:01] LABS: ABG Base Excess 7.2 mmol/L (-2.0-3.0); ABG HCO3 32.9 mmol/L (20.0-26.0); ABG PH 7.403 pH Units (7.350-7.450)
[2018-10-13 04:17] LABS: BUN/Creatinine Ratio 47; Blood Urea Nitrogen 14 mg/dL (7-17); Calcium 9.2 mg/dL (8.4-10.2); Hemolysis Index 15
[2018-10-13] MEDS: MAXIPIME/NS 2 GM/100 ML 2 GM/100 ML BAG IV SCH ×5 (05:54→22:22)
[2018-10-13] MEDS: SODIUM CHLORIDE FLUSH SYRINGE 10 ML IV SCH ×2 (07:43→09:15)
[2018-10-13] MEDS: LOPRESSOR PO SCH ×2 (09:14→22:23)
[2018-10-13] MEDS: KEPPRA PO SCH ×2 (09:14→22:23)
[2018-10-13] MEDS: ELIQUIS PO SCH ×2 (09:15→22:23)
--- NOTE | 2018-10-13 11:17 | Progress Note ---
Assessment and Plan s/p cardiopulmonary arrest-OOH with ROSC Acute hyoxemic respiratory failure on MVS Acute hypercapnic respiratory failure Acute encephalopathy- metabolic Sepsis Aspiration pneumonia LLL Myoclonic jerks, post arrest Atrial fibrillation with RVR (family still discussing goals of care) - continue daily SAT and SBT assessments as tolerated - ABG at 9pm if still on PSV - discontinue cedillo catheter - add prn albuterol nebs - VAP bundle addressed - continue to wean supplemental O2 to keep O2 sats > 90% - follow 2D ECHO - VTE prophylaxis - Stress ulcer prophylaxis - Continue OGT for nutrition and oral medications - Tube feeding for nutritional support - continue accuchecks with glycemic control per SSI for target blood glucose 140-180mg/dL - follow official EEG report - continue empiric antibiotics for aspiration pneumonia (MRSA and GNR coverage re: recent health care facility associations) - resume chronic home medications per attending - continue Midazolam for sedation and seizure management - continue Keppra - neurology evaluation ongoing - continue mobility protocols / off loading for pressure ulcer prevention - Critical care bundles addressed - continue Seizure precautions - fall precautions - neuro-checks per RN - continue other care per attending / other consultants CONDITION: CRITICAL PROGNOSIS: GUARDED TO GRAVE CODE STATUS: FULL CODE The high probability of a clinically significant, sudden or life threatening deterioration of the [Neurology Respiratory, Cardiovascular] system(s) required my full and direct attention, intervention and personal management. The aggreg ate critical care time was [35] minutes. This time is in addition to time spent performing reported procedures but includes the following: [x] Data Review and interpretation [x] Patient assessment and monitoring of vital signs [x] Documentation [x] Medication orders and management Subjective Date of service: 10/13/18 Principal diagnosis: Cardiac arrest with ROSC; Ac hypoxemic resp failure; Ac. encephalopathy Interval history: Follow up for: OOH cardiac arrest with ROSC; acute hypoxic-hypercapnic respiratory failure; myoclonic jerks; acute metabolic encephalopathy Seen and examined at bedside; 24hour events reviewed; nursing and respiratory care staff consulted; no adverse overnight events reported to me; resting peacefully in bed; AMS is persistent; remains off sedatives; tolerating CPAP decently well so far; no emesis or overt aspiration; no active seizures Objective Vital Signs - 12hr 10/12/18 10/12/18 10/13/18 23:25 23:35 00:00 Temperature 97.9 F Pulse Rate 96 H 97 H Pulse Rate [ 92 H From Monitor] Respiratory 16 Rate Blood Pressure 138/60 154/60 O2 Sat by Pulse 99 97 Oximetry 10/13/18 10/13/18 10/13/18 00:03 01:00 02:00 Temperature Pulse Rate 98 H 81 92 H Pulse Rate [ From Monitor] Respiratory 17 18 Rate Blood Pressure 154/60 142/48 158/90 O2 Sat by Pulse 93 100 Oximetry 10/13/18 10/13/18 10/13/18 03:00 03:54 04:00 Temperature 98.7 F Pulse Rate 92 H 83 87 Pulse Rate [ 82 From Monitor] Respiratory 17 15 Rate Blood Pressure 159/60 159/60 162/61 O2 Sat by Pulse 99 98 97 Oximetry 10/13/18 10/13/18 10/13/18 05:00 05:54 06:00 Temperature Pulse Rate 88 90 98 H Pulse Rate [ From Monitor] Respiratory 17 23 Rate Blood Pressure 150/56 150/56 150/56 O2 Sat by Pulse 97 99 Oximetry 10/13/18 10/13/18 10/13/18 07:00 08:00 08:42 Temperature 99.3 F Pulse Rate 102 H 104 H 98 H Pulse Rate [ 104 H From Monitor] Respiratory 26 H 18 30 H Rate Blood Pressure 151/64 172/56 172/56 O2 Sat by Pulse 98 99 97 Oximetry 10/13/18 10/13/18 10/13/18 08:59 09:00 09:14 Temperature Pulse Rate 98 H 108 H 109 H Pulse Rate [ From Monitor] Respiratory 36 H 22 Rate Blood Pressure 172/56 172/56 198/67 O2 Sat by Pulse 97 97 Oximetry 10/13/18 10:00 Temperature Pulse Rate 84 Pulse Rate [ From Monitor] Respiratory 24 Rate Blood Pressure 145/50 O2 Sat by Pulse 94 Oximetry Constitutional: no acute distress, other (+ myoclonic jerks during sedation vacations) Eyes: non-icteric ENT: oropharynx moist, other (ETT at 23cm to MVS) Neck: supple, no lymphadenopathy, no JVD Effort: mildly labored Ascultation: Bilateral: diminished breath sounds, rhonchi Percussion: Bilateral: not dull Cardiovascular: other (irregular, tacycardia, S1,S2) Gastrointestinal: normoactive bowel sounds, soft, non-tender, non-distended Integumentary: normal Extremities: no cyanosis, no edema, pink and warm, pulses normal Neurologic: unable to assess, other (posturing to painful stimuli, Pupils are minimally reactive) Psychiatric: other (unable to assess) CBC and BMP: 10/14/18 08:05 10/14/18 08:05 ABG, PT/INR, D-dimer: ABG POC ABG pH 7.602 (7.35-7.45) H 10/10/18 04:24 ABG pH 7.403 pH Units (7.350-7.450) 10/13/18 03:10 ABG pCO2 57.8 mm Hg 10/13/18 03:10 POC ABG pO2 170 (80-105) H 10/10/18 04:24 ABG pO2 81.5 mm Hg (80.0-90.0) 10/13/18 03:10 POC ABG HCO3 28.4 (22-26 mml/L) 10/10/18 04:24 POC ABG Total CO2 29 (23-27mmol/L) 10/10/18 04:24 POC ABG O2 Sat 100 10/10/18 04:24 ABG O2 Saturation 98.5 % (95.0-99.0) 10/13/18 03:10 PT/INR, D-dimer PT 16.6 Sec. (12.2-14.9) H 10/09/18 10:50 INR 1.38 (0.87-1.13) H 10/09/18 10:50 Abnormal lab findings: Abnormal Labs 10/09/18 10/09/18 10/09/18 10:14 10:50 10:50 WBC RBC Hgb Hct RDW Lymph % (Auto) [place] % (Auto) [place] # Seg Neutrophils % Seg Neuts % (Manual) Lymphocytes % (Manual) Seg Neutrophils # Seg Neutrophils # Man Monocytes # (Manual) PT 16.6 H INR 1.38 H APTT 39.4 H POC ABG pH POC ABG pCO2 POC ABG pO2 ABG pO2 ABG HCO3 ABG Base Excess ABG Hemoglobin Oxyhemoglobin Chloride 90.3 L BUN 21 H Creatinine Glucose 315 H POC Glucose 344 H Lactic Acid Magnesium AST 51 H ALT 67 H Total Creatine Kinase C-Reactive Protein Total Protein 5.3 L Albumin 3.0 L Urine WBC (Auto) Vancomycin Trough Salicylates Acetaminophen 10/09/18 10/09/18 10/09/18 10:50 10:50 10:50 WBC RBC Hgb Hct RDW Lymph % (Auto) [place] % (Auto) [place] # Seg Neutrophils % Seg Neuts % (Manual) Lymphocytes % (Manual) Seg Neutrophils # Seg Neutrophils # Man Monocytes # (Manual) PT INR APTT POC ABG pH POC ABG pCO2 POC ABG pO2 ABG pO2 ABG HCO3 ABG Base Excess ABG Hemoglobin Oxyhemoglobin Chloride BUN Creatinine Glucose POC Glucose Lactic Acid Magnesium 3.70 H AST ALT Total Creatine Kinase 171 H C-Reactive Protein Total Protein Albumin Urine WBC (Auto) Vancomycin Trough Salicylates < 0.3 L Acetaminophen < 5.0 L 10/09/18 10/09/18 10/09/18 10:50 10:55 11:38 WBC 31.3 H RBC Hgb Hct RDW 13.0 L Lymph % (Auto) [place] % (Auto) [place] # Seg Neutrophils % Seg Neuts % (Manual) 91.5 H Lymphocytes % (Manual) 4.5 L Seg Neutrophils # Seg Neutrophils # Man 28.6 H Monocytes # (Manual) 1.1 H PT INR APTT POC ABG pH 7.243 L POC ABG pCO2 68.0 H POC ABG pO2 389 H ABG pO2 ABG HCO3 ABG Base Excess ABG Hemoglobin Oxyhemoglobin Chloride BUN Creatinine Glucose POC Glucose Lactic Acid 9.30 H* Magnesium AST ALT Total Creatine Kinase C-Reactive Protein Total Protein Albumin Urine WBC (Auto) Vancomycin Trough Salicylates Acetaminophen 10/09/18 10/09/18 10/09/18 12:12 15:28 16:27 WBC RBC Hgb Hct RDW Lymph % (Auto) [place] % (Auto) [place] # Seg Neutrophils % Seg Neuts % (Manual) Lymphocytes % (Manual) Seg Neutrophils # Seg Neutrophils # Man Monocytes # (Manual) PT INR APTT POC ABG pH 7.598 H POC ABG pCO2 POC ABG pO2 61 L ABG pO2 ABG HCO3 ABG Base Excess ABG Hemoglobin Oxyhemoglobin Chloride BUN Creatinine Glucose POC Glucose 173 H Lactic Acid Magnesium AST ALT Total Creatine Kinase C-Reactive Protein Total Protein Albumin Urine WBC (Auto) 8.0 H Vancomycin Trough Salicylates Acetaminophen 10/09/18 10/09/18 10/09/18 16:44 16:44 18:38 WBC RBC Hgb Hct RDW Lymph % (Auto) [place] % (Auto) [place] # Seg Neutrophils % Seg Neuts % (Manual) Lymphocytes % (Manual) Seg Neutrophils # Seg Neutrophils # Man Monocytes # (Manual) PT INR APTT POC ABG pH POC ABG pCO2 POC ABG pO2 ABG pO2 ABG HCO3 ABG Base Excess ABG Hemoglobin Oxyhemoglobin Chloride BUN Creatinine Glucose POC Glucose 177 H Lactic Acid 3.80 H* 3.70 H* Magnesium AST ALT Total Creatine Kinase C-Reactive Protein Total Protein Albumin Urine WBC (Auto) Vancomycin Trough Salicylates Acetaminophen 10/10/18 10/10/18 10/10/18 00:33 04:24 05:32 WBC RBC Hgb Hct RDW Lymph % (Auto) [place] % (Auto) [place] # Seg Neutrophils % Seg Neuts % (Manual) Lymphocytes % (Manual) Seg Neutrophils # Seg Neutrophils # Man Monocytes # (Manual) PT INR APTT POC ABG pH 7.602 H POC ABG pCO2 POC ABG pO2 170 H ABG pO2 ABG HCO3 ABG Base Excess ABG Hemoglobin Oxyhemoglobin Chloride BUN Creatinine Glucose POC Glucose 177 H 190 H Lactic Acid Magnesium AST ALT Total Creatine Kinase C-Reactive Protein Total Protein Albumin Urine WBC (Auto) Vancomycin Trough Salicylates Acetaminophen 10/10/18 10/10/18 10/10/18 07:54 07:54 12:18 WBC 38.6 H RBC Hgb Hct RDW Lymph % (Auto) [place] % (Auto) [place] # Seg Neutrophils % Seg Neuts % (Manual) Lymphocytes % (Manual) Seg Neutrophils # Seg Neutrophils # Man Monocytes # (Manual) PT INR APTT POC ABG pH POC ABG pCO2 POC ABG pO2 ABG pO2 ABG HCO3 ABG Base Excess ABG Hemoglobin Oxyhemoglobin Chloride BUN 31 H Creatinine Glucose 124 H POC Glucose 151 H Lactic Acid Magnesium AST ALT Total Creatine Kinase C-Reactive Protein Total Protein Albumin Urine WBC (Auto) Vancomycin Trough Salicylates Acetaminophen 10/10/18 10/10/18 10/11/18 18:17 23:09 03:40 WBC RBC Hgb Hct RDW Lymph % (Auto) [place] % (Auto) [place] # Seg Neutrophils % Seg Neuts % (Manual) Lymphocytes % (Manual) Seg Neutrophils # Seg Neutrophils # Man Monocytes # (Manual) PT INR APTT POC ABG pH POC ABG pCO2 POC ABG pO2 ABG pO2 91.1 H ABG HCO3 28.8 H ABG Base Excess ABG Hemoglobin 7.6 L Oxyhemoglobin Chloride BUN Creatinine Glucose POC Glucose 132 H 124 H Lactic Acid Magnesium AST ALT Total Creatine Kinase C-Reactive Protein Total Protein Albumin Urine WBC (Auto) Vancomycin Trough Salicylates Acetaminophen 10/11/18 10/11/18 10/11/18 04:45 04:45 06:50 WBC 25.8 H RBC 3.41 L Hgb Hct RDW Lymph % (Auto) [place] % (Auto) [place] # Seg Neutrophils % Seg Neuts % (Manual) 83.0 H Lymphocytes % (Manual) Seg Neutrophils # Seg Neutrophils # Man 21.4 H Monocytes # (Manual) PT INR APTT POC ABG pH POC ABG pCO2 POC ABG pO2 ABG pO2 ABG HCO3 ABG Base Excess ABG Hemoglobin Oxyhemoglobin Chloride BUN 26 H Creatinine 0.6 L Glucose 134 H POC Glucose 134 H Lactic Acid Magnesium AST ALT Total Creatine Kinase C-Reactive Protein Total Protein Albumin Urine WBC (Auto) Vancomycin Trough Salicylates Acetaminophen 10/11/18 10/11/18 10/12/18 13:10 18:08 00:25 WBC RBC Hgb Hct RDW Lymph % (Auto) [place] % (Auto) [place] # Seg Neutrophils % Seg Neuts % (Manual) Lymphocytes % (Manual) Seg Neutrophils # Seg Neutrophils # Man Monocytes # (Manual) PT INR APTT POC ABG pH POC ABG pCO2 POC ABG pO2 ABG pO2 ABG HCO3 ABG Base Excess ABG Hemoglobin Oxyhemoglobin Chloride BUN Creatinine Glucose POC Glucose 160 H 166 H 136 H Lactic Acid Magnesium AST ALT Total Creatine Kinase C-Reactive Protein Total Protein Albumin Urine WBC (Auto) Vancomycin Trough Salicylates Acetaminophen 10/12/18 10/12/18 10/12/18 03:56 04:17 04:17 WBC 19.2 H RBC 3.04 L Hgb 8.9 L Hct 27.2 L RDW Lymph % (Auto) 8.5 L [place] % (Auto) [place] # 1.4 H Seg Neutrophils % 84.2 H Seg Neuts % (Manual) Lymphocytes % (Manual) Seg Neutrophils # 16.2 H Seg Neutrophils # Man Monocytes # (Manual) PT INR APTT POC ABG pH POC ABG pCO2 POC ABG pO2 ABG pO2 77.9 L ABG HCO3 29.4 H ABG Base Excess 4.4 H ABG Hemoglobin 10.2 L Oxyhemoglobin 94.7 L Chloride BUN Creatinine 0.5 L Glucose 139 H POC Glucose Lactic Acid Magnesium AST ALT Total Creatine Kinase C-Reactive Protein Total Protein Albumin Urine WBC (Auto) Vancomycin Trough Salicylates Acetaminophen 10/12/18 10/12/18 10/12/18 05:51 11:46 13:03 WBC RBC Hgb Hct RDW Lymph % (Auto) [place] % (Auto) [place] # Seg Neutrophils % Seg Neuts % (Manual) Lymphocytes % (Manual) Seg Neutrophils # Seg Neutrophils # Man Monocytes # (Manual) PT INR APTT POC ABG pH POC ABG pCO2 POC ABG pO2 ABG pO2 ABG HCO3 ABG Base Excess ABG Hemoglobin Oxyhemoglobin Chloride BUN Creatinine Glucose POC Glucose 163 H 162 H Lactic Acid Magnesium AST ALT Total Creatine Kinase C-Reactive Protein 2.70 H Total Protein Albumin Urine WBC (Auto) Vancomycin Trough Salicylates Acetaminophen 10/12/18 10/12/18 10/12/18 17:44 22:33 23:54 WBC RBC Hgb Hct RDW Lymph % (Auto) [place] % (Auto) [place] # Seg Neutrophils % Seg Neuts % (Manual) Lymphocytes % (Manual) Seg Neutrophils # Seg Neutrophils # Man Monocytes # (Manual) PT INR APTT POC ABG pH POC ABG pCO2 POC ABG pO2 ABG pO2 ABG HCO3 ABG Base Excess ABG Hemoglobin Oxyhemoglobin Chloride BUN Creatinine Glucose POC Glucose 143 H 180 H Lactic Acid Magnesium AST ALT Total Creatine Kinase C-Reactive Protein Total Protein Albumin Urine WBC (Auto) Vancomycin Trough 4.8 L Salicylates Acetaminophen 10/13/18 10/13/18 10/13/18 02:30 02:30 03:10 WBC 19.8 H RBC 3.12 L Hgb 9.2 L Hct 28.2 L RDW Lymph % (Auto) 8.1 L [place] % (Auto) 8.0 H [place] # 1.6 H Seg Neutrophils % 83.2 H Seg Neuts % (Manual) Lymphocytes % (Manual) Seg Neutrophils # 16.5 H Seg Neutrophils # Man Monocytes # (Manual) PT INR APTT POC ABG pH POC ABG pCO2 POC ABG pO2 ABG pO2 ABG HCO3 32.9 H ABG Base Excess 7.2 H ABG Hemoglobin 10.8 L Oxyhemoglobin Chloride BUN Creatinine 0.3 L Glucose 139 H POC Glucose Lactic Acid Magnesium AST ALT Total Creatine Kinase C-Reactive Protein Total Protein Albumin Urine WBC (Auto) Vancomycin Trough Salicylates Acetaminophen 10/13/18 05:17 WBC RBC Hgb Hct RDW Lymph % (Auto) [place] % (Auto) [place] # Seg Neutrophils % Seg Neuts % (Manual) Lymphocytes % (Manual) Seg Neutrophils # Seg Neutrophils # Man Monocytes # (Manual) PT INR APTT POC ABG pH POC ABG pCO2 POC ABG pO2 ABG pO2 ABG HCO3 ABG Base Excess ABG Hemoglobin Oxyhemoglobin Chloride BUN Creatinine Glucose POC Glucose 192 H Lactic Acid Magnesium AST ALT Total Creatine Kinase C-Reactive Protein Total Protein Albumin Urine WBC (Auto) Vancomycin Trough Salicylates Acetaminophen Chest x-ray: image reviewed (LLL small volume atelectasis vs effusion) Allied health notes reviewed: nursing
--- NOTE | 2018-10-13 11:22 | Progress Note ---
Assessment and Plan Currently stable cardiac status. Cont present cardiac management. Nothing further to add from cardiac perspective at this time. Will follow on as needed basis. Pt with suspected anoxic brain injury. Overall poor prognosis. The patient has been seen in conjunction with Dr. Laird who agrees with the assessment and plan of care. - Patient Problems (1) Cardiac arrest Current Visit: Yes Status: Acute (2) Acute respiratory failure Current Visit: Yes Status: Acute (3) Pneumonia Current Visit: Yes Status: Acute (4) Lactic acid acidosis Current Visit: Yes Status: Acute (5) Altered mental status Current Visit: Yes Status: Acute (6) Paroxysmal atrial fibrillation Current Visit: Yes Status: Chronic (7) HTN (hypertension) Current Visit: Yes Status: Chronic (8) Elevated LFTs Current Visit: Yes Status: Acute (9) Sleep apnea Current Visit: Yes Status: Chronic Subjective Date of service: 10/13/18 Principal diagnosis: Cardiac arrest with ROSC; Ac hypoxemic resp failure; Ac. encephalopathy Interval history: pt remains intubated, unresponsive. in SR HR 90s on tele. family at bedside. Objective Last Vital Signs Temp 99.3 F 10/13/18 08:00 Pulse 84 10/13/18 10:00 Resp 24 10/13/18 10:00 BP 145/50 10/13/18 10:00 Pulse Ox 94 10/13/18 10:00 - Physical Examination General: Other (intubated, unresponsive) Cardiac: Positive: Reg Rate and Rhythm, S1/S2 Lungs: Positive: Decreased Breath Sounds, Oxygen, Ventilated Respirations Neuro: Positive: Other (intubated, unresponsive) Skin: Negative: Rash Extremities: Absent: edema - Labs and Meds CBC 10/13/18 Range/Units 02:30 WBC 19.8 H (4.5-11.0) K/mm3 RBC 3.12 L (3.65-5.03) M/mm3 Hgb 9.2 L (10.1-14.3) gm/dl Hct 28.2 L (30.3-42.9) % Plt Count 143 (140-440) K/mm3 Lymph # 1.6 (1.2-5.4) K/mm3 [place] # 1.6 H (0.0-0.8) K/mm3 Eos # 0.1 (0.0-0.4) K/mm3 Baso # 0.0 (0.0-0.1) K/mm3 Comprehensive Metabolic Panel 10/13/18 Range/Units 02:30 Sodium 142 (137-145) mmol/L Potassium 3.8 (3.6-5.0) mmol/L Chloride 101.3 (98-107) mmol/L Carbon Dioxide 30 (22-30) mmol/L BUN 14 (7-17) mg/dL Creatinine 0.3 L (0.7-1.2) mg/dL Glucose 139 H (65-100) mg/dL Calcium 9.2 (8.4-10.2) mg/dL - Imaging and Cardiology EKG: report reviewed, image reviewed Echo: report reviewed ( EF 60-65%, mild LVH, impaired relaxation, mild TR, mild pulm HTN RVSP 48mmHg, small pericardial effusion, left pleural effusion. ) - Allied health notes Allied health notes reviewed: nursing
--- NOTE | 2018-10-13 15:17 | Progress Note ---
Assessment and Plan Assessment and plan: Septic shock. Continue pressors to maintain MAP greater than 65. Continue antibiotics per infectious disease. Left lower lobe pneumonia. Continue antibiotics. ID following. Anoxic brain injury. Follow-up EEG per Neurology. MRI findings consistent with anoxic brain injury. Keppra started per neurology twice a day for seizure prophylaxis Cardiopulmonary arrest. Echo revealed EF 60-65%, mild LVH, impaired relaxation, mild TR, mild pulm HTN RVSP 48mmHg, small pericardial effusion, left pleural effusion. Continue supportive care. S/P ACLS protocol initiation with return of cardiac rhythm Acute hypoxemic respiratory failure. Continue mechanical ventilation per pulmonary. Overall poor prognosis with minimal chance for neurological recovery The high probability of a clinically significant, sudden or life threatening deterioration of the [neurological and respiratory] system(s) required my full and direct attention, intervention and personal management. The aggregate critical care time was [33] minutes. This time is in addition to time spent performing reported procedures but includes the following: [x] Data Review and interpretation [x] Patient assessment and monitoring of vital signs [x] Documentation [x] Medication orders and management History Interval history: Patient remains on mechanical ventilation. Hospitalist Physical - Constitutional Vitals: Temp Pulse Resp BP Pulse Ox 99.4 F 93 H 21 180/60 92 10/13/18 12:00 10/13/18 15:00 10/13/18 15:00 10/13/18 15:00 10/13/18 15:00 General appearance: Present: no acute distress, other (orally intubated) - EENT Eyes: Present: PERRL, EOM intact ENT: hearing intact, clear oral mucosa, dentition normal - Neck Neck: Present: supple, normal ROM - Respiratory Respiratory effort: normal Respiratory: bilateral: CTA - Cardiovascular Rhythm: regular Heart Sounds: Present: S1 & S2. Absent: gallop, rub - Extremities Extremities: no ischemia, No edema, Full ROM - Abdominal General gastrointestinal: soft, non-tender, non-distended, normal bowel sounds - Integumentary Integumentary: Present: clear, warm, dry - Neurologic Neurologic: CNII-XII intact, moves all extremities Results - Labs CBC & Chem 7: 10/13/18 02:30 10/13/18 02:30 Labs: Laboratory Last Values WBC 19.8 K/mm3 (4.5-11.0) H 10/13/18 02:30 RBC 3.12 M/mm3 (3.65-5.03) L 10/13/18 02:30 Hgb 9.2 gm/dl (10.1-14.3) L 10/13/18 02:30 Hct 28.2 % (30.3-42.9) L 10/13/18 02:30 MCV 90 fl (79-97) 10/13/18 02:30 MCH 30 pg (28-32) 10/13/18 02:30 MCHC 33 % (30-34) 10/13/18 02:30 RDW 13.9 % (13.2-15.2) 10/13/18 02:30 Plt Count 143 K/mm3 (140-440) 10/13/18 02:30 Lymph % (Auto) 8.1 % (13.4-35.0) L 10/13/18 02:30 [place] % (Auto) 8.0 % (0.0-7.3) H 10/13/18 02:30 Eos % (Auto) 0.5 % (0.0-4.3) 10/13/18 02:30 Baso % (Auto) 0.2 % (0.0-1.8) 10/13/18 02:30 Lymph # 1.6 K/mm3 (1.2-5.4) 10/13/18 02:30 [place] # 1.6 K/mm3 (0.0-0.8) H 10/13/18 02:30 Eos # 0.1 K/mm3 (0.0-0.4) 10/13/18 02:30 Baso # 0.0 K/mm3 (0.0-0.1) 10/13/18 02:30 Add Manual Diff Complete 10/11/18 04:45 Total Counted 100 10/11/18 04:45 Seg Neutrophils % 83.2 % (40.0-70.0) H 10/13/18 02:30 Seg Neuts % (Manual) 83.0 % (40.0-70.0) H 10/11/18 04:45 0 % 10/11/18 04:45 14.0 % (13.4-35.0) 10/11/18 04:45 Reactive Lymphs % (Man) 0 % 10/11/18 04:45 3.0 % (0.0-7.3) 10/11/18 04:45 0 % (0.0-4.3) 10/11/18 04:45 0 % (0.0-1.8) 10/11/18 04:45 0 % 10/11/18 04:45 0 % 10/11/18 04:45 0 % 10/11/18 04:45 0 % 10/11/18 04:45 Nucleated RBC % Not Reportable 10/11/18 04:45 Seg Neutrophils # 16.5 K/mm3 (1.8-7.7) H 10/13/18 02:30 Seg Neutrophils # Man 21.4 K/mm3 (1.8-7.7) H 10/11/18 04:45 Band Neutrophils # 0.0 K/mm3 10/11/18 04:45 3.6 K/mm3 (1.2-5.4) 10/11/18 04:45 Abs React Lymphs (Man) 0.0 K/mm3 10/11/18 04:45 0.8 K/mm3 (0.0-0.8) 10/11/18 04:45 0.0 K/mm3 (0.0-0.4) 10/11/18 04:45 0.0 K/mm3 (0.0-0.1) 10/11/18 04:45 0.0 K/mm3 10/11/18 04:45 0.0 K/mm3 10/11/18 04:45 0.0 K/mm3 10/11/18 04:45 Blast Cells # 0.0 K/mm3 10/11/18 04:45 WBC Morphology Not Reportable 10/11/18 04:45 Hypersegmented Neuts Not Reportable 10/11/18 04:45 Hyposegmented Neuts Not Reportable 10/11/18 04:45 Hypogranular Neuts Not Reportable 10/11/18 04:45 Not Reportable 10/11/18 04:45 Not Reportable 10/11/18 04:45 Not Reportable 10/11/18 04:45 Not Reportable 10/11/18 04:45 Not Reportable 10/11/18 04:45 Not Reportable 10/11/18 04:45 Consistent w auto 10/11/18 04:45 Not Reportable 10/11/18 04:45 Plt Clumps, EDTA Not Reportable 10/11/18 04:45 Not Reportable 10/11/18 04:45 Not Reportable 10/11/18 04:45 Not Reportable 10/11/18 04:45 Plt Morphology Comment Not Reportable 10/11/18 04:45 RBC Morphology Not Reportable 10/11/18 04:45 Dimorphic RBCs Not Reportable 10/11/18 04:45 Not Reportable 10/11/18 04:45 Not Reportable 10/11/18 04:45 Not Reportable 10/11/18 04:45 Few 10/11/18 04:45 Not Reportable 10/11/18 04:45 Not Reportable 10/11/18 04:45 Not Reportable 10/11/18 04:45 Not Reportable 10/11/18 04:45 Not Reportable 10/11/18 04:45 Not Reportable 10/11/18 04:45 Not Reportable 10/11/18 04:45 Few 10/11/18 04:45 Not Reportable 10/11/18 04:45 Not Reportable 10/11/18 04:45 Not Reportable 10/11/18 04:45 Not Reportable 10/11/18 04:45 Not Reportable 10/11/18 04:45 Not Reportable 10/11/18 04:45 Not Reportable 10/11/18 04:45 Acanthocytes (Spur) Not Reportable 10/11/18 04:45 Rouleaux Not Reportable 10/11/18 04:45 Not Reportable 10/11/18 04:45 Not Reportable 10/11/18 04:45 Not Reportable 10/11/18 04:45 Not Reportable 10/11/18 04:45 Hem Pathologist Commnt No 10/11/18 04:45 PT 16.6 Sec. (12.2-14.9) H 10/09/18 10:50 INR 1.38 (0.87-1.13) H 10/09/18 10:50 APTT 39.4 Sec. (24.2-36.6) H 10/09/18 10:50 POC ABG pH 7.602 (7.35-7.45) H 10/10/18 04:24 ABG pH 7.403 pH Units (7.350-7.450) 10/13/18 03:10 POC ABG pCO2 68.0 (35-45) H 10/09/18 11:38 ABG pCO2 57.8 mm Hg 10/13/18 03:10 POC ABG pO2 170 (80-105) H 10/10/18 04:24 ABG pO2 81.5 mm Hg (80.0-90.0) 10/13/18 03:10 POC ABG HCO3 28.4 (22-26 mml/L) 10/10/18 04:24 ABG HCO3 32.9 mmol/L (20.0-26.0) H 10/13/18 03:10 POC ABG Total CO2 29 (23-27mmol/L) 10/10/18 04:24 POC ABG O2 Sat 100 10/10/18 04:24 ABG O2 Saturation 98.5 % (95.0-99.0) 10/13/18 03:10 ABG O2 Content 14.8 (0.0-44) 10/13/18 03:10 POC ABG Base Excess 7 ((-2) - (+3)mmol/L) 10/10/18 04:24 ABG Base Excess 7.2 mmol/L (-2.0-3.0) H 10/13/18 03:10 ABG Hemoglobin 10.8 gm/dl (12.0-16.0) L 10/13/18 03:10 ABG Carboxyhemoglobin 1.4 % (0.0-5.0) 10/13/18 03:10 ABG Methemoglobin 0.6 % (0.0-1.5) 10/13/18 03:10 96.5 % (95.0-99.0) 10/13/18 03:10 30 % 10/13/18 03:10 Sodium 142 mmol/L (137-145) 10/13/18 02:30 Potassium 3.8 mmol/L (3.6-5.0) 10/13/18 02:30 Chloride 101.3 mmol/L (98-107) 10/13/18 02:30 Carbon Dioxide 30 mmol/L (22-30) 10/13/18 02:30 15 mmol/L 10/13/18 02:30 BUN 14 mg/dL (7-17) 10/13/18 02:30 0.3 mg/dL (0.7-1.2) L 10/13/18 02:30 Estimated GFR > 60 ml/min 10/13/18 02:30 47 % 10/13/18 02:30 Glucose 139 mg/dL (65-100) H 10/13/18 02:30 POC Glucose 200 (70-105) H 10/13/18 11:52 Lactic Acid 1.90 mmol/L (0.7-2.0) 10/09/18 20:50 Calcium 9.2 mg/dL (8.4-10.2) 10/13/18 02:30 Magnesium 3.70 mg/dL (1.7-2.3) H 10/09/18 10:50 0.30 mg/dL (0.1-1.2) 10/09/18 10:50 AST 51 units/L (5-40) H 10/09/18 10:50 ALT 67 units/L (7-56) H 10/09/18 10:50 60 units/L (35-129) 10/09/18 10:50 171 units/L (30-135) H 10/09/18 10:50 < 0.010 ng/mL (0.00-0.029) 10/09/18 10:50 2.70 mg/dL (0.00-1.30) H 10/12/18 13:03 5.3 g/dL (6.3-8.2) L 10/09/18 10:50 3.0 g/dL (3.9-5) L 10/09/18 10:50 1.3 % 10/09/18 10:50 Yellow (Yellow) 10/09/18 12:12 Hazy (Clear) 10/09/18 12:12 7.0 (5.0-7.0) 10/09/18 12:12 Ur Specific [place] 1.011 (1.003-1.030) 10/09/18 12:12 100 mg/dl mg/dL (Negative) 10/09/18 12:12 150 mg/dL (Negative) 10/09/18 12:12 Neg mg/dL (Negative) 10/09/18 12:12 Sm (Negative) 10/09/18 12:12 Neg (Negative) 10/09/18 12:12 Neg (Negative) 10/09/18 12:12 < 2.0 mg/dL (<2.0) 10/09/18 12:12 Ur Leukocyte Esterase Neg (Negative) 10/09/18 12:12 8.0 /HPF (0.0-6.0) H 10/09/18 12:12 7.0 /HPF (0.0-6.0) 10/09/18 12:12 Few /HPF 10/09/18 12:12 Vancomycin Trough 4.8 ug/mL (5.0-20.0) L 10/12/18 22:33 Salicylates < 0.3 mg/dL (2.8-20.0) L 10/09/18 10:50 Acetaminophen < 5.0 ug/mL (10.0-30.0) L 10/09/18 10:50 Plasma/Serum Alcohol < 0.01 % (0-0.07) 10/09/18 10:50 Active Medications - Current Medications Current Medications: Generic Name Dose Route Start Last Admin Trade Name Freq PRN Reason Stop Dose Admin Acetaminophen 650 mg 10/10/18 00:18 10/10/18 00:34 Tylenol [place] 650 mg Q4H PRN Administration Pain, Mild (1-3) Albuterol 2.5 mg 10/12/18 12:20 Proventil IH Q4HRT PRN Shortness Of Breath Lipase/Protease/Amylase 1 each 10/10/18 10:[address] 10,500 Unit FEEDTUBE PRN PRN For Clogged Feeding Tube Apixaban 5 mg 10/09/18 22:00 10/13/18 09:15 Eliquis PO 5 mg BID SAUNDRA Administration Protocol Diltiazem HCl 60 mg 10/10/18 12:00 10/13/18 11:52 Cardizem PO 60 mg Q6HR SAUNDRA Administration Famotidine 20 mg 10/10/18 22:00 10/13/18 09:15 Pepcid PO 20 mg BID SAUNDRA Administration Fentanyl 50 mcg 10/09/18 10:48 10/09/18 14:24 Sublimaze IV 50 mcg Q10MIN PRN Administration ANALGESIA Hydrophilic Ointment 1 applic 10/09/18 10:48 Vaseline Lip Therapy TP Q2HR PRN Dry Lips Norepinephrine 4 mg in 250 mls @ 7.5 mls/hr 10/09/18 11:00 10/10/18 05:21 Levophed Drip 4 Mg/Ns 250 Ml IV 0 mcg/min TITR SAUNDRA 0 mls/hr Titration Protocol 2 MCG/MIN Fentanyl Citrate 2,000 mcg in 100 mls @ 3.561 mls/hr 10/09/18 11:00 Fentanyl Drip Premix IV TITR SAUNDRA Protocol 1 MCG/KG/HR Midazolam HCl 100 mg/ Sodium 100 mls @ 2 mls/hr 10/09/18 11:00 10/11/18 10:50 Chloride IV 2 mg/hr TITR SAUNDRA 2 mls/hr Administration Protocol 2 MG/HR Vasopressin 20 unit/ Sodium 101 mls @ 9.09 mls/hr 10/09/18 15:00 10/10/18 06:16 Chloride IV 0 units/min TITR SAUNDRA 0 mls/hr Titration Protocol 0.03 UNITS/MIN Cefepime HCl 2 gm in 100 mls @ 200 mls/hr 10/10/18 10:00 10/13/18 07:44 Maxipime/Ns 2 Gm/100 Ml IV Not Given Q8HR [facility] Protocol Metronidazole 500 mg in 100 mls @ 100 mls/hr 10/12/18 16:00 10/13/18 08:04 Flagyl 500 Mg/100 Ml IV 100 mls/hr Q8H SAUNDRA Administration Protocol Insulin Human Lispro 0 unit 10/10/18 12:00 10/13/18 11:52 Humalog SUB-Q 3 unit Q6HR [facility] Administration Protocol Levetiracetam 500 mg 10/11/18 10:00 10/13/18 09:14 Keppra PO 500 mg BID SAUNDRA Administration Metoprolol Tartrate 5 mg 10/10/18 09:21 Lopressor IV Q6HR PRN Hypertension Metoprolol Tartrate 25 mg 10/12/18 10:00 10/13/18 09:14 Lopressor PO 25 mg BID SAUNDRA Administration Midazolam HCl 2 mg 10/12/18 12:21 Versed IV Q2H PRN Sedation Multi-Ingred Cream/Lotion/Oil/Oint 1 applic 10/09/18 10:48 10/09/18 18:29 Artificial Tears Ophth Oint OU 1 applic Q4HR PRN Administration Dry Eye(s) Simple Syrup 15 ml 10/10/18 10:31 Simple Syrup FEEDTUBE PRN PRN Hypoglycemia Simple Syrup 30 ml 10/10/18 10:31 Simple Syrup FEEDTUBE PRN PRN Hypoglycemia Sodium Bicarbonate 325 mg 10/10/18 10:31 Sodium Bicarbonate FEEDTUBE PRN PRN For Clogged Feeding Tube Sodium Chloride 5 ml 10/09/18 10:48 Nacl 0.9% 500 Ml IV DIRECT PRN [employer]ERIAL [employer] CHEMIST Sodium Chloride 10 ml 10/09/18 22:00 10/13/18 09:15 Sodium Chloride Flush Syringe 10 Ml IV 10 ml BID SAUNDRA Administration Sodium Chloride 10 ml 10/09/18 13:07 Sodium Chloride Flush Syringe 10 Ml IV PRN PRN LINE FLUSH Nutrition/Malnutrition Assess - Dietary Evaluation Nutrition/Malnutrition Findings: Nutrition Notes Start: 10/10/18 08:09 Freq: Status: Active Protocol: Document 10/13/18 10:34 LM (Rec: 10/13/18 10:40 LM [email or web address]) Nutrition Notes Initial or Follow up Reassessment Current Diagnosis Sepsis,Hypertension, Respiratory Failure Other Pertinent Diagnosis Anoxic brain injury Current Diet Vital AF 1.2 at 50 ml/hr Labs/Tests BG 139 Cr 0.3 Pertinent Medications Reviewed Height 5 ft 2 in Weight 63.7 kg [place] Body Weight (kg) 50.00 BMI 25.7 Subjective/Other Information TF running at 50 ml/hr. Pt tolerating TF well. Percent of energy/protein needs met: 100%/100% Burn Absent Trauma Absent #1 Nutrition Diagnosis Inadequate oral intake Diagnosis Progress(for reassessment Continues documentation) Is patient on ventilator? Yes Is Patient Ambulatory and/or Out of Bed No REE-(Ogilvie-St Jeor-confined to bed) 1361.868 Calculation Used for Recommendations [facility] Additional Notes Protein: 76-127g (1.2-2 g/kg) Fluid: 1 ml/kcal Nutrition Intervention Change Diet Order: Continue TF Nutrition Support: Vital AF 1.2 at 50 ml/hr Flush 75 ml/hr Kcal 1,440 Protein (gm) 90 Fluid (mL) 973 Goal #1 Meet at least 75% of energy and protein needs Anticipated Discharge Needs: Unable to determine at this time Follow-Up By: 10/20/18 Additional Comments F/U for TF rate/tolerance
--- NOTE | 2018-10-13 16:48 | Progress Note ---
Assessment and Plan I HAVE REVIEWED THE EEG DONE YESTERDAY, WHICH SHOWS SLOW BACKGROUND AND DIFFUSE LOW VOLTAGE. HAD EXTENSIVE MEETING WITH THE FAMILY MEMBERS AND ANSWERES ALL THEIR QUESTIONS. TODAY PATIENT SEEMS LITTLE BETTER ,FAMILY MEMBERS TOLD ME THAT SHE AT TIME MOVES HER LEGS SPONTANEOUSLY PHYSICAL EXAMINATION. VERBALLY UNRESPONSIVE, RESPONDS TO PAINFUL STIMULI BY MILD FACIAL GRIMACING, NO SPONTANEOUS MOVEMENT OF THE EXTREMITIES WERE NOTED. RESPONDS TO PAINFULS STIMULI ON THE HANDS BY WITHDRAWAL BOTH UPPER EXTREMITIES.PUPILS REACT TO LIGHT SLUGGISHLY, CORNEAL REFLEX IS PRESENT. IMPRESSION. ANOXIC ENCEPHALOPATHY WITH LITTLE INTERVAL IMPROVEMENT. RECOMMEN. 1. CONTINUE KEPPRA PRESCRIBED 2. CONTINUE OTHER SUPPORTIVE CARE. Subjective Principal diagnosis: Cardiac arrest with ROSC; Ac hypoxemic resp failure; Ac. encephalopathy Objective - Vital Sign Vital Signs - 12hr 10/13/18 10/13/18 10/13/18 05:00 05:54 06:00 Temperature Pulse Rate 88 90 98 H Pulse Rate [ From Monitor] Respiratory 17 23 Rate Blood Pressure 150/56 150/56 150/56 O2 Sat by Pulse 97 99 Oximetry 10/13/18 10/13/18 10/13/18 07:00 08:00 08:42 Temperature 99.3 F Pulse Rate 102 H 104 H 98 H Pulse Rate [ 104 H From Monitor] Respiratory 26 H 18 30 H Rate Blood Pressure 151/64 172/56 172/56 O2 Sat by Pulse 98 99 97 Oximetry 10/13/18 10/13/18 10/13/18 08:59 09:00 09:14 Temperature Pulse Rate 98 H 108 H 109 H Pulse Rate [ From Monitor] Respiratory 36 H 22 Rate Blood Pressure 172/56 172/56 198/67 O2 Sat by Pulse 97 97 Oximetry 10/13/18 10/13/18 10/13/18 10:00 11:00 11:52 Temperature Pulse Rate 84 92 H 93 H Pulse Rate [ From Monitor] Respiratory 24 21 Rate Blood Pressure 145/50 166/58 166/58 O2 Sat by Pulse 94 93 Oximetry 10/13/18 10/13/18 10/13/18 12:00 13:00 13:29 Temperature 99.4 F Pulse Rate 94 H 81 86 Pulse Rate [ 94 H From Monitor] Respiratory 18 20 21 Rate Blood Pressure 179/65 189/60 189/60 O2 Sat by Pulse 96 92 96 Oximetry 10/13/18 10/13/18 14:00 15:00 Temperature Pulse Rate 88 93 H Pulse Rate [ From Monitor] Respiratory 22 21 Rate Blood Pressure 170/67 180/60 O2 Sat by Pulse 93 92 Oximetry - Laboratory Findings CBC and BMP: 10/13/18 02:30 10/13/18 02:30 Abnormal Lab Findings: Abnormal Labs 10/09/18 10/09/18 10/09/18 10:14 10:50 10:50 WBC RBC Hgb Hct RDW Lymph % (Auto) [place] % (Auto) [place] # Seg Neutrophils % Seg Neuts % (Manual) Lymphocytes % (Manual) Seg Neutrophils # Seg Neutrophils # Man Monocytes # (Manual) PT 16.6 H INR 1.38 H APTT 39.4 H POC ABG pH POC ABG pCO2 POC ABG pO2 ABG pO2 ABG HCO3 ABG Base Excess ABG Hemoglobin Oxyhemoglobin Chloride 90.3 L BUN 21 H Creatinine Glucose 315 H POC Glucose 344 H Lactic Acid Magnesium AST 51 H ALT 67 H Total Creatine Kinase C-Reactive Protein Total Protein 5.3 L Albumin 3.0 L Urine WBC (Auto) Vancomycin Trough Salicylates Acetaminophen 10/09/18 10/09/18 10/09/18 10:50 10:50 10:50 WBC RBC Hgb Hct RDW Lymph % (Auto) [place] % (Auto) [place] # Seg Neutrophils % Seg Neuts % (Manual) Lymphocytes % (Manual) Seg Neutrophils # Seg Neutrophils # Man Monocytes # (Manual) PT INR APTT POC ABG pH POC ABG pCO2 POC ABG pO2 ABG pO2 ABG HCO3 ABG Base Excess ABG Hemoglobin Oxyhemoglobin Chloride BUN Creatinine Glucose POC Glucose Lactic Acid Magnesium 3.70 H AST ALT Total Creatine Kinase 171 H C-Reactive Protein Total Protein Albumin Urine WBC (Auto) Vancomycin Trough Salicylates < 0.3 L Acetaminophen < 5.0 L 10/09/18 10/09/18 10/09/18 10:50 10:55 11:38 WBC 31.3 H RBC Hgb Hct RDW 13.0 L Lymph % (Auto) [place] % (Auto) [place] # Seg Neutrophils % Seg Neuts % (Manual) 91.5 H Lymphocytes % (Manual) 4.5 L Seg Neutrophils # Seg Neutrophils # Man 28.6 H Monocytes # (Manual) 1.1 H PT INR APTT POC ABG pH 7.243 L POC ABG pCO2 68.0 H POC ABG pO2 389 H ABG pO2 ABG HCO3 ABG Base Excess ABG Hemoglobin Oxyhemoglobin Chloride BUN Creatinine Glucose POC Glucose Lactic Acid 9.30 H* Magnesium AST ALT Total Creatine Kinase C-Reactive Protein Total Protein Albumin Urine WBC (Auto) Vancomycin Trough Salicylates Acetaminophen 10/09/18 10/09/18 10/09/18 12:12 15:28 16:27 WBC RBC Hgb Hct RDW Lymph % (Auto) [place] % (Auto) [place] # Seg Neutrophils % Seg Neuts % (Manual) Lymphocytes % (Manual) Seg Neutrophils # Seg Neutrophils # Man Monocytes # (Manual) PT INR APTT POC ABG pH 7.598 H POC ABG pCO2 POC ABG pO2 61 L ABG pO2 ABG HCO3 ABG Base Excess ABG Hemoglobin Oxyhemoglobin Chloride BUN Creatinine Glucose POC Glucose 173 H Lactic Acid Magnesium AST ALT Total Creatine Kinase C-Reactive Protein Total Protein Albumin Urine WBC (Auto) 8.0 H Vancomycin Trough Salicylates Acetaminophen 10/09/18 10/09/18 10/09/18 16:44 16:44 18:38 WBC RBC Hgb Hct RDW Lymph % (Auto) [place] % (Auto) [place] # Seg Neutrophils % Seg Neuts % (Manual) Lymphocytes % (Manual) Seg Neutrophils # Seg Neutrophils # Man Monocytes # (Manual) PT INR APTT POC ABG pH POC ABG pCO2 POC ABG pO2 ABG pO2 ABG HCO3 ABG Base Excess ABG Hemoglobin Oxyhemoglobin Chloride BUN Creatinine Glucose POC Glucose 177 H Lactic Acid 3.80 H* 3.70 H* Magnesium AST ALT Total Creatine Kinase C-Reactive Protein Total Protein Albumin Urine WBC (Auto) Vancomycin Trough Salicylates Acetaminophen 10/10/18 10/10/18 10/10/18 00:33 04:24 05:32 WBC RBC Hgb Hct RDW Lymph % (Auto) [place] % (Auto) [place] # Seg Neutrophils % Seg Neuts % (Manual) Lymphocytes % (Manual) Seg Neutrophils # Seg Neutrophils # Man Monocytes # (Manual) PT INR APTT POC ABG pH 7.602 H POC ABG pCO2 POC ABG pO2 170 H ABG pO2 ABG HCO3 ABG Base Excess ABG Hemoglobin Oxyhemoglobin Chloride BUN Creatinine Glucose POC Glucose 177 H 190 H Lactic Acid Magnesium AST ALT Total Creatine Kinase C-Reactive Protein Total Protein Albumin Urine WBC (Auto) Vancomycin Trough Salicylates Acetaminophen 10/10/18 10/10/18 10/10/18 07:54 07:54 12:18 WBC 38.6 H RBC Hgb Hct RDW Lymph % (Auto) [place] % (Auto) [place] # Seg Neutrophils % Seg Neuts % (Manual) Lymphocytes % (Manual) Seg Neutrophils # Seg Neutrophils # Man Monocytes # (Manual) PT INR APTT POC ABG pH POC ABG pCO2 POC ABG pO2 ABG pO2 ABG HCO3 ABG Base Excess ABG Hemoglobin Oxyhemoglobin Chloride BUN 31 H Creatinine Glucose 124 H POC Glucose 151 H Lactic Acid Magnesium AST ALT Total Creatine Kinase C-Reactive Protein Total Protein Albumin Urine WBC (Auto) Vancomycin Trough Salicylates Acetaminophen 10/10/18 10/10/18 10/11/18 18:17 23:09 03:40 WBC RBC Hgb Hct RDW Lymph % (Auto) [place] % (Auto) [place] # Seg Neutrophils % Seg Neuts % (Manual) Lymphocytes % (Manual) Seg Neutrophils # Seg Neutrophils # Man Monocytes # (Manual) PT INR APTT POC ABG pH POC ABG pCO2 POC ABG pO2 ABG pO2 91.1 H ABG HCO3 28.8 H ABG Base Excess ABG Hemoglobin 7.6 L Oxyhemoglobin Chloride BUN Creatinine Glucose POC Glucose 132 H 124 H Lactic Acid Magnesium AST ALT Total Creatine Kinase C-Reactive Protein Total Protein Albumin Urine WBC (Auto) Vancomycin Trough Salicylates Acetaminophen 10/11/18 10/11/18 10/11/18 04:45 04:45 06:50 WBC 25.8 H RBC 3.41 L Hgb Hct RDW Lymph % (Auto) [place] % (Auto) [place] # Seg Neutrophils % Seg Neuts % (Manual) 83.0 H Lymphocytes % (Manual) Seg Neutrophils # Seg Neutrophils # Man 21.4 H Monocytes # (Manual) PT INR APTT POC ABG pH POC ABG pCO2 POC ABG pO2 ABG pO2 ABG HCO3 ABG Base Excess ABG Hemoglobin Oxyhemoglobin Chloride BUN 26 H Creatinine 0.6 L Glucose 134 H POC Glucose 134 H Lactic Acid Magnesium AST ALT Total Creatine Kinase C-Reactive Protein Total Protein Albumin Urine WBC (Auto) Vancomycin Trough Salicylates Acetaminophen 10/11/18 10/11/18 10/12/18 13:10 18:08 00:25 WBC RBC Hgb Hct RDW Lymph % (Auto) [place] % (Auto) [place] # Seg Neutrophils % Seg Neuts % (Manual) Lymphocytes % (Manual) Seg Neutrophils # Seg Neutrophils # Man Monocytes # (Manual) PT INR APTT POC ABG pH POC ABG pCO2 POC ABG pO2 ABG pO2 ABG HCO3 ABG Base Excess ABG Hemoglobin Oxyhemoglobin Chloride BUN Creatinine Glucose POC Glucose 160 H 166 H 136 H Lactic Acid Magnesium AST ALT Total Creatine Kinase C-Reactive Protein Total Protein Albumin Urine WBC (Auto) Vancomycin Trough Salicylates Acetaminophen 10/12/18 10/12/18 10/12/18 03:56 04:17 04:17 WBC 19.2 H RBC 3.04 L Hgb 8.9 L Hct 27.2 L RDW Lymph % (Auto) 8.5 L [place] % (Auto) [place] # 1.4 H Seg Neutrophils % 84.2 H Seg Neuts % (Manual) Lymphocytes % (Manual) Seg Neutrophils # 16.2 H Seg Neutrophils # Man Monocytes # (Manual) PT INR APTT POC ABG pH POC ABG pCO2 POC ABG pO2 ABG pO2 77.9 L ABG HCO3 29.4 H ABG Base Excess 4.4 H ABG Hemoglobin 10.2 L Oxyhemoglobin 94.7 L Chloride BUN Creatinine 0.5 L Glucose 139 H POC Glucose Lactic Acid Magnesium AST ALT Total Creatine Kinase C-Reactive Protein Total Protein Albumin Urine WBC (Auto) Vancomycin Trough Salicylates Acetaminophen 10/12/18 10/12/18 10/12/18 05:51 11:46 13:03 WBC RBC Hgb Hct RDW Lymph % (Auto) [place] % (Auto) [place] # Seg Neutrophils % Seg Neuts % (Manual) Lymphocytes % (Manual) Seg Neutrophils # Seg Neutrophils # Man Monocytes # (Manual) PT INR APTT POC ABG pH POC ABG pCO2 POC ABG pO2 ABG pO2 ABG HCO3 ABG Base Excess ABG Hemoglobin Oxyhemoglobin Chloride BUN Creatinine Glucose POC Glucose 163 H 162 H Lactic Acid Magnesium AST ALT Total Creatine Kinase C-Reactive Protein 2.70 H Total Protein Albumin Urine WBC (Auto) Vancomycin Trough Salicylates Acetaminophen 10/12/18 10/12/18 10/12/18 17:44 22:33 23:54 WBC RBC Hgb Hct RDW Lymph % (Auto) [place] % (Auto) [place] # Seg Neutrophils % Seg Neuts % (Manual) Lymphocytes % (Manual) Seg Neutrophils # Seg Neutrophils # Man Monocytes # (Manual) PT INR APTT POC ABG pH POC ABG pCO2 POC ABG pO2 ABG pO2 ABG HCO3 ABG Base Excess ABG Hemoglobin Oxyhemoglobin Chloride BUN Creatinine Glucose POC Glucose 143 H 180 H Lactic Acid Magnesium AST ALT Total Creatine Kinase C-Reactive Protein Total Protein Albumin Urine WBC (Auto) Vancomycin Trough 4.8 L Salicylates Acetaminophen 10/13/18 10/13/18 10/13/18 02:30 02:30 03:10 WBC 19.8 H RBC 3.12 L Hgb 9.2 L Hct 28.2 L RDW Lymph % (Auto) 8.1 L [place] % (Auto) 8.0 H [place] # 1.6 H Seg Neutrophils % 83.2 H Seg Neuts % (Manual) Lymphocytes % (Manual) Seg Neutrophils # 16.5 H Seg Neutrophils # Man Monocytes # (Manual) PT INR APTT POC ABG pH POC ABG pCO2 POC ABG pO2 ABG pO2 ABG HCO3 32.9 H ABG Base Excess 7.2 H ABG Hemoglobin 10.8 L Oxyhemoglobin Chloride BUN Creatinine 0.3 L Glucose 139 H POC Glucose Lactic Acid Magnesium AST ALT Total Creatine Kinase C-Reactive Protein Total Protein Albumin Urine WBC (Auto) Vancomycin Trough Salicylates Acetaminophen 10/13/18 10/13/18 05:17 11:52 WBC RBC Hgb Hct RDW Lymph % (Auto) [place] % (Auto) [place] # Seg Neutrophils % Seg Neuts % (Manual) Lymphocytes % (Manual) Seg Neutrophils # Seg Neutrophils # Man Monocytes # (Manual) PT INR APTT POC ABG pH POC ABG pCO2 POC ABG pO2 ABG pO2 ABG HCO3 ABG Base Excess ABG Hemoglobin Oxyhemoglobin Chloride BUN Creatinine Glucose POC Glucose 192 H 200 H Lactic Acid Magnesium AST ALT Total Creatine Kinase C-Reactive Protein Total Protein Albumin Urine WBC (Auto) Vancomycin Trough Salicylates Acetaminophen
--- NOTE | 2018-10-13 16:54 | Electroencephalogram Report ---
Electroencephalogram EEG Date of exam: 10/12/18 History: 68 YR OLD FEMALE WITH ANOXIC ENCEPHALOPATHY Impression: THIS IS A BED SIDE EEG, Description: The waking background shows an appropriate organization with well-defined anterior posterior voltage and frequency gradients. Posteriorly, there is a well-developed alpha rhythm of [ ] Hz which is symmetrical and bilaterally reactive. Anteriorly, there is a pattern of lower voltage and slightly irregular theta and beta range frequencies. During drowsiness, there is attenuation of the background rhythms. The sleep background shows normal organization with well-formed sleep spindles and vertex waves which are synchronous and symmetrical. Throughout, the recording there are no epileptiform abnormalities, focal or lateralizing features, or significant interhemispheric findings. Interpretation: THIS IS AN EEG RECORDING USING 10-20 INTERNATIONAL SYSTEM OF ELECTRODE PLACEMENT. BACK GROUND RYTHM IS SLOW WITH 4 TO 5 HERTZ, THE RECORD DOES NOT SHOW ANY BLANCA CTROGRAPHIC SEIZURE OR ANY EPILEPTIFORM ACTIVITY. THIS WAS ADIFFUSE LOW VOLTAGE EEG.WITH OUT ANY FOCAL SLOWING
[2018-10-13] MEDS: LOPRESSOR IV PRN (20:08)
[2018-10-14] MEDS: FLAGYL 500 MG/100 ML 500 MG/100 ML BAG IV SCH ×4 (00:09→23:19)
[2018-10-14] MEDS: CARDIZEM PO SCH ×5 (00:09→23:18)
[2018-10-14] MEDS: HumaLOG SUB-Q SCH ×5 (00:54→23:19)
[2018-10-14 04:23] LABS: ABG Base Excess 8.4 mmol/L (-2.0-3.0); ABG HCO3 34.1 mmol/L (20.0-26.0); ABG Methemoglobin 0.5 % (0.0-1.5); ABG Oxygen Saturation 96.8 % (95.0-99.0); ABG PCO2 53.1 mm Hg; ABG PH 7.426 pH Units (7.350-7.450); ABG PO2 83.1 mm Hg (80.0-90.0)
--- NOTE | 2018-10-14 04:47 | XRay Report ---
CHEST 1 VIEW [id number] INDICATION / CLINICAL INFORMATION: follow up respiratory failure. COMPARISON: 10/13/2018 FINDINGS: SUPPORT DEVICES: Endotracheal tube has advanced and lies approximately 4.2 cm above the penelope. Nasog astric tube continues below the diaphragm. HEART / MEDIASTINUM: Stable LUNGS / PLEURA: Right lung field remains clear. Density in the left base and left pleural effusion co ntinue. No pneumothorax. ADDITIONAL FINDINGS: No significant additional findings. IMPRESSION: No significant changes Signer Name: Saeed Whiteside MD Signed: 10/14/2018 4:43 AM Workstation Name: [id number]
[2018-10-14] MEDS: MAXIPIME/NS 2 GM/100 ML 2 GM/100 ML BAG IV SCH ×3 (05:46→21:02)
[2018-10-14] MEDS: SODIUM CHLORIDE FLUSH SYRINGE 10 ML IV SCH ×3 (07:47→21:02)
[2018-10-14 08:48] LABS: BUN/Creatinine Ratio 53; Blood Urea Nitrogen 16 mg/dL (7-17); Calcium 9.1 mg/dL (8.4-10.2); Hemolysis Index 7
[2018-10-14 08:49] LABS: Basophils % (Auto) 0.1 % (0.0-1.8); Eosinophils # (Auto) 0.2 K/mm3 (0.0-0.4); Eosinophils % (Auto) 1.4 % (0.0-4.3); Hematocrit 29.7 % (30.3-42.9); Hemoglobin 9.8 gm/dl (10.1-14.3); Lymphocytes # (Auto) 1.3 K/mm3 (1.2-5.4); Lymphocytes % (Auto) 7.5 % (13.4-35.0); Mean Corpuscular HGB Conc 33 % (30-34); Mean Corpuscular Volume 91 fl (79-97); Monocytes # (Auto) 1.4 K/mm3 (0.0-0.8); Monocytes % (Auto) 8.6 % (0.0-7.3); Platelet Count 149 K/mm3 (140-440); Red Blood Count 3.27 M/mm3 (3.65-5.03); Red Cell Distribution Width 13.1 % (13.2-15.2)
[2018-10-14] MEDS: KEPPRA PO SCH ×2 (10:31→21:00)
[2018-10-14] MEDS: ELIQUIS PO SCH ×2 (10:31→21:00)
[2018-10-14] MEDS: PEPCID PO SCH ×2 (10:32→21:01)
[2018-10-14] MEDS: LOPRESSOR PO SCH ×2 (10:32→21:00)
--- NOTE | 2018-10-14 13:08 | Progress Note ---
Assessment and Plan s/p cardiopulmonary arrest-OOH with ROSC Acute hyoxemic respiratory failure on MVS Acute hypercapnic respiratory failure Acute encephalopathy- metabolic Sepsis Aspiration pneumonia LLL Myoclonic jerks, post arrest Atrial fibrillation with RVR (family still discussing goals of care) - begin Provigil - continue daily SAT and SBT assessments as tolerated - discontinued cedillo catheter - continue prn albuterol nebs - VAP bundle addressed - continue to wean supplemental O2 to keep O2 sats > 90% - follow 2D ECHO - VTE prophylaxis - Stress ulcer prophylaxis - Continue OGT for nutrition and oral medications - Tube feeding for nutritional support - continue accuchecks with glycemic control per SSI for target blood glucose 140-180mg/dL - follow official EEG report - continue empiric antibiotics for aspiration pneumonia (MRSA and GNR coverage re: recent health care facility associations) - resume chronic home medications per attending - continue Midazolam for sedation and seizure management - continue Keppra - neurology evaluation ongoing - continue mobility protocols / off loading for pressure ulcer prevention - Critical care bundles addressed - continue Seizure precautions - fall precautions - neuro-checks per RN - continue other care per attending / other consultants CONDITION: CRITICAL PROGNOSIS: GUARDED TO GRAVE CODE STATUS: FULL CODE The high probability of a clinically significant, sudden or life threatening deterioration of the [Neurology Respiratory, Cardiovascular] system(s) required my full and direct attention, intervention and personal management. The aggregate critical care time was [32] minutes. This time is in addition to time spent performing reported procedures but includes the following: [x] Data Review and interpretation [x] Patient assessment and monitoring of vital signs [x] Documentation [x] Medication orders and management Subjective Date of service: 10/14/18 Principal diagnosis: Cardiac arrest with ROSC; Ac hypoxemic resp failure; Ac. encephalopathy Interval history: Follow up for: OOH cardiac arrest with ROSC; acute hypoxic-hypercapnic respiratory failure; myoclonic jerks; acute metabolic encephalopathy Seen and examined at bedside; 24hour events reviewed; nursing and respiratory care staff consulted; no adverse overnight events reported to me; resting peacefully in bed; still with AMS; tired out after about 6 hours on PSV yesterday; son in room now; failed SBT today rather quickly Objective Vital Signs - 12hr 10/14/18 10/14/18 10/14/18 02:00 03:00 03:44 Temperature 98 F Pulse Rate 85 76 Pulse Rate [ From Monitor] Pulse Rate [ Left Dorsalis Pedis] Respiratory 18 15 Rate Blood Pressure 167/55 151/51 O2 Sat by Pulse 100 100 Oximetry 10/14/18 10/14/18 10/14/18 04:00 04:16 04:30 Temperature Pulse Rate 83 85 81 Pulse Rate [ From Monitor] Pulse Rate [ 81 Left Dorsalis Pedis] Respiratory 15 13 Rate Blood Pressure 151/58 151/58 O2 Sat by Pulse 100 99 100 Oximetry 10/14/18 10/14/18 10/14/18 05:00 05:46 06:00 Temperature Pulse Rate 85 85 83 Pulse Rate [ From Monitor] Pulse Rate [ Left Dorsalis Pedis] Respiratory 17 15 Rate Blood Pressure 173/60 157/57 165/57 O2 Sat by Pulse 100 100 Oximetry 10/14/18 10/14/18 10/14/18 07:00 07:17 08:00 Temperature 98.8 F Pulse Rate 81 83 89 Pulse Rate [ 89 From Monitor] Pulse Rate [ Left Dorsalis Pedis] Respiratory 13 18 Rate Blood Pressure 147/55 147/55 155/54 O2 Sat by Pulse 90 98 91 Oximetry 10/14/18 10/14/18 10/14/18 09:00 10:00 10:32 Temperature Pulse Rate 92 H 94 H 96 H Pulse Rate [ From Monitor] Pulse Rate [ Left Dorsalis Pedis] Respiratory 16 15 Rate Blood Pressure 150/57 173/62 173/62 O2 Sat by Pulse 100 100 Oximetry 10/14/18 10/14/18 10/14/18 11:00 11:15 11:20 Temperature Pulse Rate 77 77 73 Pulse Rate [ From Monitor] Pulse Rate [ Left Dorsalis Pedis] Respiratory 15 Rate Blood Pressure 154/57 154/57 154/57 O2 Sat by Pulse 100 100 99 Oximetry 10/14/18 10/14/18 12:00 12:21 Temperature 99.9 F H Pulse Rate 80 76 Pulse Rate [ 80 From Monitor] Pulse Rate [ Left Dorsalis Pedis] Respiratory 16 Rate Blood Pressure 156/56 156/56 O2 Sat by Pulse 98 Oximetry Constitutional: no acute distress, other (+ myoclonic jerks during sedation vacations) Eyes: non-icteric ENT: oropharynx moist, other (ETT at 23cm to MVS) Neck: supple, no lymphadenopathy, no JVD Effort: mildly labored Ascultation: Bilateral: diminished breath sounds, rhonchi Percussion: Bilateral: not dull Cardiovascular: other (irregular, tacycardia, S1,S2) Gastrointestinal: normoactive bowel sounds, soft, non-tender, non-distended Integumentary: normal Extremities: no cyanosis, no edema, pink and warm, pulses normal Neurologic: unable to assess, other (posturing to painful stimuli, Pupils are minimally reactive) Psychiatric: other (unable to assess) CBC and BMP: 10/15/18 05:03 10/15/18 05:03 ABG, PT/INR, D-dimer: ABG POC ABG pH 7.390 (7.35-7.45) 10/13/18 17:18 ABG pH 7.426 pH Units (7.350-7.450) 10/14/18 03:55 POC ABG pCO2 56.7 (35-45) H 10/13/18 17:18 ABG pCO2 53.1 mm Hg 10/14/18 03:55 POC ABG pO2 63 (80-105) L 10/13/18 17:18 ABG pO2 83.1 mm Hg (80.0-90.0) 10/14/18 03:55 POC ABG HCO3 34.3 (22-26 mml/L) 10/13/18 17:18 POC ABG Total CO2 36 (23-27mmol/L) 10/13/18 17:18 POC ABG O2 Sat 91 10/13/18 17:18 ABG O2 Saturation 96.8 % (95.0-99.0) 10/14/18 03:55 PT/INR, D-dimer PT 16.6 Sec. (12.2-14.9) H 10/09/18 10:50 INR 1.38 (0.87-1.13) H 10/09/18 10:50 Abnormal lab findings: Abnormal Labs 10/09/18 10/09/18 10/09/18 10:14 10:50 10:50 WBC RBC Hgb Hct RDW Lymph % (Auto) [place] % (Auto) [place] # Seg Neutrophils % Seg Neuts % (Manual) Lymphocytes % (Manual) Seg Neutrophils # Seg Neutrophils # Man Monocytes # (Manual) PT 16.6 H INR 1.38 H APTT 39.4 H POC ABG pH POC ABG pCO2 POC ABG pO2 ABG pO2 ABG HCO3 ABG Base Excess ABG Hemoglobin Oxyhemoglobin Chloride 90.3 L Carbon Dioxide BUN 21 H Creatinine Glucose 315 H POC Glucose 344 H Lactic Acid Magnesium AST 51 H ALT 67 H Total Creatine Kinase C-Reactive Protein Total Protein 5.3 L Albumin 3.0 L Urine WBC (Auto) Vancomycin Trough Salicylates Acetaminophen 10/09/18 10/09/18 10/09/18 10:50 10:50 10:50 WBC RBC Hgb Hct RDW Lymph % (Auto) [place] % (Auto) [place] # Seg Neutrophils % Seg Neuts % (Manual) Lymphocytes % (Manual) Seg Neutrophils # Seg Neutrophils # Man Monocytes # (Manual) PT INR APTT POC ABG pH POC ABG pCO2 POC ABG pO2 ABG pO2 ABG HCO3 ABG Base Excess ABG Hemoglobin Oxyhemoglobin Chloride Carbon Dioxide BUN Creatinine Glucose POC Glucose Lactic Acid Magnesium 3.70 H AST ALT Total Creatine Kinase 171 H C-Reactive Protein Total Protein Albumin Urine WBC (Auto) Vancomycin Trough Salicylates < 0.3 L Acetaminophen < 5.0 L 10/09/18 10/09/18 10/09/18 10:50 10:55 11:38 WBC 31.3 H RBC Hgb Hct RDW 13.0 L Lymph % (Auto) [place] % (Auto) [place] # Seg Neutrophils % Seg Neuts % (Manual) 91.5 H Lymphocytes % (Manual) 4.5 L Seg Neutrophils # Seg Neutrophils # Man 28.6 H Monocytes # (Manual) 1.1 H PT INR APTT POC ABG pH 7.243 L POC ABG pCO2 68.0 H POC ABG pO2 389 H ABG pO2 ABG HCO3 ABG Base Excess ABG Hemoglobin Oxyhemoglobin Chloride Carbon Dioxide BUN Creatinine Glucose POC Glucose Lactic Acid 9.30 H* Magnesium AST ALT Total Creatine Kinase C-Reactive Protein Total Protein Albumin Urine WBC (Auto) Vancomycin Trough Salicylates Acetaminophen 10/09/18 10/09/18 10/09/18 12:12 15:28 16:27 WBC RBC Hgb Hct RDW Lymph % (Auto) [place] % (Auto) [place] # Seg Neutrophils % Seg Neuts % (Manual) Lymphocytes % (Manual) Seg Neutrophils # Seg Neutrophils # Man Monocytes # (Manual) PT INR APTT POC ABG pH 7.598 H POC ABG pCO2 POC ABG pO2 61 L ABG pO2 ABG HCO3 ABG Base Excess ABG Hemoglobin Oxyhemoglobin Chloride Carbon Dioxide BUN Creatinine Glucose POC Glucose 173 H Lactic Acid Magnesium AST ALT Total Creatine Kinase C-Reactive Protein Total Protein Albumin Urine WBC (Auto) 8.0 H Vancomycin Trough Salicylates Acetaminophen 10/09/18 10/09/18 10/09/18 16:44 16:44 18:38 WBC RBC Hgb Hct RDW Lymph % (Auto) [place] % (Auto) [place] # Seg Neutrophils % Seg Neuts % (Manual) Lymphocytes % (Manual) Seg Neutrophils # Seg Neutrophils # Man Monocytes # (Manual) PT INR APTT POC ABG pH POC ABG pCO2 POC ABG pO2 ABG pO2 ABG HCO3 ABG Base Excess ABG Hemoglobin Oxyhemoglobin Chloride Carbon Dioxide BUN Creatinine Glucose POC Glucose 177 H Lactic Acid 3.80 H* 3.70 H* Magnesium AST ALT Total Creatine Kinase C-Reactive Protein Total Protein Albumin Urine WBC (Auto) Vancomycin Trough Salicylates Acetaminophen 10/10/18 10/10/18 10/10/18 00:33 04:24 05:32 WBC RBC Hgb Hct RDW Lymph % (Auto) [place] % (Auto) [place] # Seg Neutrophils % Seg Neuts % (Manual) Lymphocytes % (Manual) Seg Neutrophils # Seg Neutrophils # Man Monocytes # (Manual) PT INR APTT POC ABG pH 7.602 H POC ABG pCO2 POC ABG pO2 170 H ABG pO2 ABG HCO3 ABG Base Excess ABG Hemoglobin Oxyhemoglobin Chloride Carbon Dioxide BUN Creatinine Glucose POC Glucose 177 H 190 H Lactic Acid Magnesium AST ALT Total Creatine Kinase C-Reactive Protein Total Protein Albumin Urine WBC (Auto) Vancomycin Trough Salicylates Acetaminophen 10/10/18 10/10/18 10/10/18 07:54 07:54 12:18 WBC 38.6 H RBC Hgb Hct RDW Lymph % (Auto) [place] % (Auto) [place] # Seg Neutrophils % Seg Neuts % (Manual) Lymphocytes % (Manual) Seg Neutrophils # Seg Neutrophils # Man Monocytes # (Manual) PT INR APTT POC ABG pH POC ABG pCO2 POC ABG pO2 ABG pO2 ABG HCO3 ABG Base Excess ABG Hemoglobin Oxyhemoglobin Chloride Carbon Dioxide BUN 31 H Creatinine Glucose 124 H POC Glucose 151 H Lactic Acid Magnesium AST ALT Total Creatine Kinase C-Reactive Protein Total Protein Albumin Urine WBC (Auto) Vancomycin Trough Salicylates Acetaminophen 10/10/18 10/10/18 10/11/18 18:17 23:09 03:40 WBC RBC Hgb Hct RDW Lymph % (Auto) [place] % (Auto) [place] # Seg Neutrophils % Seg Neuts % (Manual) Lymphocytes % (Manual) Seg Neutrophils # Seg Neutrophils # Man Monocytes # (Manual) PT INR APTT POC ABG pH POC ABG pCO2 POC ABG pO2 ABG pO2 91.1 H ABG HCO3 28.8 H ABG Base Excess ABG Hemoglobin 7.6 L Oxyhemoglobin Chloride Carbon Dioxide BUN Creatinine Glucose POC Glucose 132 H 124 H Lactic Acid Magnesium AST ALT Total Creatine Kinase C-Reactive Protein Total Protein Albumin Urine WBC (Auto) Vancomycin Trough Salicylates Acetaminophen 10/11/18 10/11/18 10/11/18 04:45 04:45 06:50 WBC 25.8 H RBC 3.41 L Hgb Hct RDW Lymph % (Auto) [place] % (Auto) [place] # Seg Neutrophils % Seg Neuts % (Manual) 83.0 H Lymphocytes % (Manual) Seg Neutrophils # Seg Neutrophils # Man 21.4 H Monocytes # (Manual) PT INR APTT POC ABG pH POC ABG pCO2 POC ABG pO2 ABG pO2 ABG HCO3 ABG Base Excess ABG Hemoglobin Oxyhemoglobin Chloride Carbon Dioxide BUN 26 H Creatinine 0.6 L Glucose 134 H POC Glucose 134 H Lactic Acid Magnesium AST ALT Total Creatine Kinase C-Reactive Protein Total Protein Albumin Urine WBC (Auto) Vancomycin Trough Salicylates Acetaminophen 10/11/18 10/11/18 10/12/18 13:10 18:08 00:25 WBC RBC Hgb Hct RDW Lymph % (Auto) [place] % (Auto) [place] # Seg Neutrophils % Seg Neuts % (Manual) Lymphocytes % (Manual) Seg Neutrophils # Seg Neutrophils # Man Monocytes # (Manual) PT INR APTT POC ABG pH POC ABG pCO2 POC ABG pO2 ABG pO2 ABG HCO3 ABG Base Excess ABG Hemoglobin Oxyhemoglobin Chloride Carbon Dioxide BUN Creatinine Glucose POC Glucose 160 H 166 H 136 H Lactic Acid Magnesium AST ALT Total Creatine Kinase C-Reactive Protein Total Protein Albumin Urine WBC (Auto) Vancomycin Trough Salicylates Acetaminophen 10/12/18 10/12/18 10/12/18 03:56 04:17 04:17 WBC 19.2 H RBC 3.04 L Hgb 8.9 L Hct 27.2 L RDW Lymph % (Auto) 8.5 L [place] % (Auto) [place] # 1.4 H Seg Neutrophils % 84.2 H Seg Neuts % (Manual) Lymphocytes % (Manual) Seg Neutrophils # 16.2 H Seg Neutrophils # Man Monocytes # (Manual) PT INR APTT POC ABG pH POC ABG pCO2 POC ABG pO2 ABG pO2 77.9 L ABG HCO3 29.4 H ABG Base Excess 4.4 H ABG Hemoglobin 10.2 L Oxyhemoglobin 94.7 L Chloride Carbon Dioxide BUN Creatinine 0.5 L Glucose 139 H POC Glucose Lactic Acid Magnesium AST ALT Total Creatine Kinase C-Reactive Protein Total Protein Albumin Urine WBC (Auto) Vancomycin Trough Salicylates Acetaminophen 10/12/18 10/12/18 10/12/18 05:51 11:46 13:03 WBC RBC Hgb Hct RDW Lymph % (Auto) [place] % (Auto) [place] # Seg Neutrophils % Seg Neuts % (Manual) Lymphocytes % (Manual) Seg Neutrophils # Seg Neutrophils # Man Monocytes # (Manual) PT INR APTT POC ABG pH POC ABG pCO2 POC ABG pO2 ABG pO2 ABG HCO3 ABG Base Excess ABG Hemoglobin Oxyhemoglobin Chloride Carbon Dioxide BUN Creatinine Glucose POC Glucose 163 H 162 H Lactic Acid Magnesium AST ALT Total Creatine Kinase C-Reactive Protein 2.70 H Total Protein Albumin Urine WBC (Auto) Vancomycin Trough Salicylates Acetaminophen 10/12/18 10/12/18 10/12/18 17:44 22:33 23:54 WBC RBC Hgb Hct RDW Lymph % (Auto) [place] % (Auto) [place] # Seg Neutrophils % Seg Neuts % (Manual) Lymphocytes % (Manual) Seg Neutrophils # Seg Neutrophils # Man Monocytes # (Manual) PT INR APTT POC ABG pH POC ABG pCO2 POC ABG pO2 ABG pO2 ABG HCO3 ABG Base Excess ABG Hemoglobin Oxyhemoglobin Chloride Carbon Dioxide BUN Creatinine Glucose POC Glucose 143 H 180 H Lactic Acid Magnesium AST ALT Total Creatine Kinase C-Reactive Protein Total Protein Albumin Urine WBC (Auto) Vancomycin Trough 4.8 L Salicylates Acetaminophen 10/13/18 10/13/18 10/13/18 02:30 02:30 03:10 WBC 19.8 H RBC 3.12 L Hgb 9.2 L Hct 28.2 L RDW Lymph % (Auto) 8.1 L [place] % (Auto) 8.0 H [place] # 1.6 H Seg Neutrophils % 83.2 H Seg Neuts % (Manual) Lymphocytes % (Manual) Seg Neutrophils # 16.5 H Seg Neutrophils # Man Monocytes # (Manual) PT INR APTT POC ABG pH POC ABG pCO2 POC ABG pO2 ABG pO2 ABG HCO3 32.9 H ABG Base Excess 7.2 H ABG Hemoglobin 10.8 L Oxyhemoglobin Chloride Carbon Dioxide BUN Creatinine 0.3 L Glucose 139 H POC Glucose Lactic Acid Magnesium AST ALT Total Creatine Kinase C-Reactive Protein Total Protein Albumin Urine WBC (Auto) Vancomycin Trough Salicylates Acetaminophen 10/13/18 10/13/18 10/13/18 05:17 11:52 17:18 WBC RBC Hgb Hct RDW Lymph % (Auto) [place] % (Auto) [place] # Seg Neutrophils % Seg Neuts % (Manual) Lymphocytes % (Manual) Seg Neutrophils # Seg Neutrophils # Man Monocytes # (Manual) PT INR APTT POC ABG pH POC ABG pCO2 56.7 H POC ABG pO2 63 L ABG pO2 ABG HCO3 ABG Base Excess ABG Hemoglobin Oxyhemoglobin Chloride Carbon Dioxide BUN Creatinine Glucose POC Glucose 192 H 200 H Lactic Acid Magnesium AST ALT Total Creatine Kinase C-Reactive Protein Total Protein Albumin Urine WBC (Auto) Vancomycin Trough Salicylates Acetaminophen 10/13/18 10/14/18 10/14/18 17:53 00:00 03:55 WBC RBC Hgb Hct RDW Lymph % (Auto) [place] % (Auto) [place] # Seg Neutrophils % Seg Neuts % (Manual) Lymphocytes % (Manual) Seg Neutrophils # Seg Neutrophils # Man Monocytes # (Manual) PT INR APTT POC ABG pH POC ABG pCO2 POC ABG pO2 ABG pO2 ABG HCO3 34.1 H ABG Base Excess 8.4 H ABG Hemoglobin 10.6 L Oxyhemoglobin 94.8 L Chloride Carbon Dioxide BUN Creatinine Glucose POC Glucose 215 H 236 H Lactic Acid Magnesium AST ALT Total Creatine Kinase C-Reactive Protein Total Protein Albumin Urine WBC (Auto) Vancomycin Trough Salicylates Acetaminophen 10/14/18 10/14/18 10/14/18 05:00 08:05 08:05 WBC 16.8 H RBC 3.27 L Hgb 9.8 L Hct 29.7 L RDW 13.1 L Lymph % (Auto) 7.5 L [place] % (Auto) 8.6 H [place] # 1.4 H Seg Neutrophils % 82.4 H Seg Neuts % (Manual) Lymphocytes % (Manual) Seg Neutrophils # 13.8 H Seg Neutrophils # Man Monocytes # (Manual) PT INR APTT POC ABG pH POC ABG pCO2 POC ABG pO2 ABG pO2 ABG HCO3 ABG Base Excess ABG Hemoglobin Oxyhemoglobin Chloride Carbon Dioxide 33 H BUN Creatinine 0.3 L Glucose 140 H POC Glucose 170 H Lactic Acid Magnesium AST ALT Total Creatine Kinase C-Reactive Protein Total Protein Albumin Urine WBC (Auto) Vancomycin Trough Salicylates Acetaminophen 10/14/18 12:04 WBC RBC Hgb Hct RDW Lymph % (Auto) [place] % (Auto) [place] # Seg Neutrophils % Seg Neuts % (Manual) Lymphocytes % (Manual) Seg Neutrophils # Seg Neutrophils # Man Monocytes # (Manual) PT INR APTT POC ABG pH POC ABG pCO2 POC ABG pO2 ABG pO2 ABG HCO3 ABG Base Excess ABG Hemoglobin Oxyhemoglobin Chloride Carbon Dioxide BUN Creatinine Glucose POC Glucose 202 H Lactic Acid Magnesium AST ALT Total Creatine Kinase C-Reactive Protein Total Protein Albumin Urine WBC (Auto) Vancomycin Trough Salicylates Acetaminophen Chest x-ray: image reviewed (small left pleural effusion / atelectasis) Allied health notes reviewed: nursing
[2018-10-14] MEDS: PROVIGIL PO SCH (14:22)
--- NOTE | 2018-10-14 16:06 | Progress Note ---
Assessment and Plan Assessment and plan: Sepsis. Continue antibiotics per infectious disease. Left lower lobe pneumonia. Continue antibiotics. ID following. Anoxic brain injury. EEG per Neurology shows no epileptiform abnormalities, focal or lateralizing features, or significant interhemispheric findings.. MRI findings consistent with anoxic brain injury. Keppra started per neurology twice a day for seizure prophylaxis. Start Provigil Cardiopulmonary arrest. Echo revealed EF 60-65%, mild LVH, impaired relaxation, mild TR, mild pulm HTN RVSP 48mmHg, small pericardial effusion, left pleural effusion. Continue supportive care. S/P ACLS protocol initiation with return of cardiac rhythm Acute hypoxemic respiratory failure. Continue mechanical ventilation per pulmonary. Cont. SBT Overall poor prognosis with minimal chance for neurological recovery The high probability of a clinically significant, sudden or life threatening deterioration of the [neurological and respiratory] system(s) required my full and direct attention, intervention and personal management. The aggregate critical care time was [31] minutes. This time is in addition to time spent performing reported procedures but includes the following: [x] Data Review and interpretation [x] Patient assessment and monitoring of vital signs [x] Documentation [x] Medication orders and management History Interval history: Patient remains on mechanical ventilation. Hospitalist Physical - Constitutional Vitals: Temp Pulse Resp BP Pulse Ox 99.9 F H 75 16 147/56 97 10/14/18 12:00 10/14/18 14:03 10/14/18 14:00 10/14/18 14:03 10/14/18 14:03 General appearance: Present: no acute distress, other (orally intubated) - EENT Eyes: Present: PERRL, EOM intact ENT: hearing intact, clear oral mucosa, dentition normal - Neck Neck: Present: supple, normal ROM - Respiratory Respiratory effort: normal Respiratory: bilateral: CTA - Cardiovascular Rhythm: regular Heart Sounds: Present: S1 & S2. Absent: gallop, rub - Extremities Extremities: no ischemia, No edema, Full ROM - Abdominal General gastrointestinal: soft, non-tender, non-distended, normal bowel sounds - Integumentary Integumentary: Present: clear, warm, dry - Neurologic Neurologic: CNII-XII intact, moves all extremities Results - Labs CBC & Chem 7: 10/14/18 08:05 10/14/18 08:05 Labs: Laboratory Last Values WBC 16.8 K/mm3 (4.5-11.0) H 10/14/18 08:05 RBC 3.27 M/mm3 (3.65-5.03) L 10/14/18 08:05 Hgb 9.8 gm/dl (10.1-14.3) L 10/14/18 08:05 Hct 29.7 % (30.3-42.9) L 10/14/18 08:05 MCV 91 fl (79-97) 10/14/18 08:05 MCH 30 pg (28-32) 10/14/18 08:05 MCHC 33 % (30-34) 10/14/18 08:05 RDW 13.1 % (13.2-15.2) L 10/14/18 08:05 Plt Count 149 K/mm3 (140-440) 10/14/18 08:05 Lymph % (Auto) 7.5 % (13.4-35.0) L 10/14/18 08:05 [place] % (Auto) 8.6 % (0.0-7.3) H 10/14/18 08:05 Eos % (Auto) 1.4 % (0.0-4.3) 10/14/18 08:05 Baso % (Auto) 0.1 % (0.0-1.8) 10/14/18 08:05 Lymph # 1.3 K/mm3 (1.2-5.4) 10/14/18 08:05 [place] # 1.4 K/mm3 (0.0-0.8) H 10/14/18 08:05 Eos # 0.2 K/mm3 (0.0-0.4) 10/14/18 08:05 Baso # 0.0 K/mm3 (0.0-0.1) 10/14/18 08:05 Add Manual Diff Complete 10/11/18 04:45 Total Counted 100 10/11/18 04:45 Seg Neutrophils % 82.4 % (40.0-70.0) H 10/14/18 08:05 Seg Neuts % (Manual) 83.0 % (40.0-70.0) H 10/11/18 04:45 0 % 10/11/18 04:45 14.0 % (13.4-35.0) 10/11/18 04:45 Reactive Lymphs % (Man) 0 % 10/11/18 04:45 3.0 % (0.0-7.3) 10/11/18 04:45 0 % (0.0-4.3) 10/11/18 04:45 0 % (0.0-1.8) 10/11/18 04:45 0 % 10/11/18 04:45 0 % 10/11/18 04:45 0 % 10/11/18 04:45 0 % 10/11/18 04:45 Nucleated RBC % Not Reportable 10/11/18 04:45 Seg Neutrophils # 13.8 K/mm3 (1.8-7.7) H 10/14/18 08:05 Seg Neutrophils # Man 21.4 K/mm3 (1.8-7.7) H 10/11/18 04:45 Band Neutrophils # 0.0 K/mm3 10/11/18 04:45 3.6 K/mm3 (1.2-5.4) 10/11/18 04:45 Abs React Lymphs (Man) 0.0 K/mm3 10/11/18 04:45 0.8 K/mm3 (0.0-0.8) 10/11/18 04:45 0.0 K/mm3 (0.0-0.4) 10/11/18 04:45 0.0 K/mm3 (0.0-0.1) 10/11/18 04:45 0.0 K/mm3 10/11/18 04:45 0.0 K/mm3 10/11/18 04:45 0.0 K/mm3 10/11/18 04:45 Blast Cells # 0.0 K/mm3 10/11/18 04:45 WBC Morphology Not Reportable 10/11/18 04:45 Hypersegmented Neuts Not Reportable 10/11/18 04:45 Hyposegmented Neuts Not Reportable 10/11/18 04:45 Hypogranular Neuts Not Reportable 10/11/18 04:45 Not Reportable 10/11/18 04:45 Not Reportable 10/11/18 04:45 Not Reportable 10/11/18 04:45 Not Reportable 10/11/18 04:45 Not Reportable 10/11/18 04:45 Not Reportable 10/11/18 04:45 Consistent w auto 10/11/18 04:45 Not Reportable 10/11/18 04:45 Plt Clumps, EDTA Not Reportable 10/11/18 04:45 Not Reportable 10/11/18 04:45 Not Reportable 10/11/18 04:45 Not Reportable 10/11/18 04:45 Plt Morphology Comment Not Reportable 10/11/18 04:45 RBC Morphology Not Reportable 10/11/18 04:45 Dimorphic RBCs Not Reportable 10/11/18 04:45 Not Reportable 10/11/18 04:45 Not Reportable 10/11/18 04:45 Not Reportable 10/11/18 04:45 Few 10/11/18 04:45 Not Reportable 10/11/18 04:45 Not Reportable 10/11/18 04:45 Not Reportable 10/11/18 04:45 Not Reportable 10/11/18 04:45 Not Reportable 10/11/18 04:45 Not Reportable 10/11/18 04:45 Not Reportable 10/11/18 04:45 Few 10/11/18 04:45 Not Reportable 10/11/18 04:45 Not Reportable 10/11/18 04:45 Not Reportable 10/11/18 04:45 Not Reportable 10/11/18 04:45 Not Reportable 10/11/18 04:45 Not Reportable 10/11/18 04:45 Not Reportable 10/11/18 04:45 Acanthocytes (Spur) Not Reportable 10/11/18 04:45 Rouleaux Not Reportable 10/11/18 04:45 Not Reportable 10/11/18 04:45 Not Reportable 10/11/18 04:45 Not Reportable 10/11/18 04:45 Not Reportable 10/11/18 04:45 Hem Pathologist Commnt No 10/11/18 04:45 PT 16.6 Sec. (12.2-14.9) H 10/09/18 10:50 INR 1.38 (0.87-1.13) H 10/09/18 10:50 APTT 39.4 Sec. (24.2-36.6) H 10/09/18 10:50 POC ABG pH 7.330 (7.35-7.45) L 10/14/18 14:06 ABG pH 7.426 pH Units (7.350-7.450) 10/14/18 03:55 POC ABG pCO2 67.6 (35-45) H 10/14/18 14:06 ABG pCO2 53.1 mm Hg 10/14/18 03:55 POC ABG pO2 75 (80-105) L 10/14/18 14:06 ABG pO2 83.1 mm Hg (80.0-90.0) 10/14/18 03:55 POC ABG HCO3 35.6 (22-26 mml/L) 10/14/18 14:06 ABG HCO3 34.1 mmol/L (20.0-26.0) H 10/14/18 03:55 POC ABG Total CO2 38 (23-27mmol/L) 10/14/18 14:06 POC ABG O2 Sat 93 10/14/18 14:06 ABG O2 Saturation 96.8 % (95.0-99.0) 10/14/18 03:55 ABG O2 Content 14.2 (0.0-44) 10/14/18 03:55 POC ABG Base Excess 10 ((-2) - (+3)mmol/L) 10/14/18 14:06 ABG Base Excess 8.4 mmol/L (-2.0-3.0) H 10/14/18 03:55 ABG Hemoglobin 10.6 gm/dl (12.0-16.0) L 10/14/18 03:55 ABG Carboxyhemoglobin 1.5 % (0.0-5.0) 10/14/18 03:55 ABG Methemoglobin 0.5 % (0.0-1.5) 10/14/18 03:55 94.8 % (95.0-99.0) L 10/14/18 03:55 30 % 10/14/18 14:06 Sodium 140 mmol/L (137-145) 10/14/18 08:05 Potassium 3.9 mmol/L (3.6-5.0) 10/14/18 08:05 Chloride 99.2 mmol/L (98-107) 10/14/18 08:05 Carbon Dioxide 33 mmol/L (22-30) H 10/14/18 08:05 12 mmol/L 10/14/18 08:05 BUN 16 mg/dL (7-17) 10/14/18 08:05 0.3 mg/dL (0.7-1.2) L 10/14/18 08:05 Estimated GFR > 60 ml/min 10/14/18 08:05 53 % 10/14/18 08:05 Glucose 140 mg/dL (65-100) H 10/14/18 08:05 POC Glucose 202 (70-105) H 10/14/18 12:04 Lactic Acid 1.90 mmol/L (0.7-2.0) 10/09/18 20:50 Calcium 9.1 mg/dL (8.4-10.2) 10/14/18 08:05 Magnesium 3.70 mg/dL (1.7-2.3) H 10/09/18 10:50 0.30 mg/dL (0.1-1.2) 10/09/18 10:50 AST 51 units/L (5-40) H 10/09/18 10:50 ALT 67 units/L (7-56) H 10/09/18 10:50 60 units/L (35-129) 10/09/18 10:50 171 units/L (30-135) H 10/09/18 10:50 < 0.010 ng/mL (0.00-0.029) 10/09/18 10:50 2.70 mg/dL (0.00-1.30) H 10/12/18 13:03 5.3 g/dL (6.3-8.2) L 10/09/18 10:50 3.0 g/dL (3.9-5) L 10/09/18 10:50 1.3 % 10/09/18 10:50 Yellow (Yellow) 10/09/18 12:12 Hazy (Clear) 10/09/18 12:12 7.0 (5.0-7.0) 10/09/18 12:12 Ur Specific [place] 1.011 (1.003-1.030) 10/09/18 12:12 100 mg/dl mg/dL (Negative) 10/09/18 12:12 150 mg/dL (Negative) 10/09/18 12:12 Neg mg/dL (Negative) 10/09/18 12:12 Sm (Negative) 10/09/18 12:12 Neg (Negative) 10/09/18 12:12 Neg (Negative) 10/09/18 12:12 < 2.0 mg/dL (<2.0) 10/09/18 12:12 Ur Leukocyte Esterase Neg (Negative) 10/09/18 12:12 8.0 /HPF (0.0-6.0) H 10/09/18 12:12 7.0 /HPF (0.0-6.0) 10/09/18 12:12 Few /HPF 10/09/18 12:12 Vancomycin Trough 4.8 ug/mL (5.0-20.0) L 10/12/18 22:33 Salicylates < 0.3 mg/dL (2.8-20.0) L 10/09/18 10:50 Acetaminophen < 5.0 ug/mL (10.0-30.0) L 10/09/18 10:50 Plasma/Serum Alcohol < 0.01 % (0-0.07) 10/09/18 10:50 Active Medications - Current Medications Current Medications: Generic Name Dose Route Start Last Admin Trade Name Freq PRN Reason Stop Dose Admin Acetaminophen 650 mg 10/10/18 00:18 10/10/18 00:34 Tylenol ID 650 mg Q4H PRN Administration Pain, Mild (1-3) Albuterol 2.5 mg 10/12/18 12:20 Proventil IH Q4HRT PRN Shortness Of Breath Lipase/Protease/Amylase 1 each 10/10/18 10:31 Pancreaze 10,500 Unit FEEDTUBE PRN PRN For Clogged Feeding Tube Apixaban 5 mg 10/09/18 22:00 10/14/18 10:31 Eliquis PO 5 mg BID SAUNDRA Administration Protocol Diltiazem HCl 60 mg 10/10/18 12:00 10/14/18 12:21 Cardizem PO 60 mg Q6HR SAUNDRA Administration Famotidine 20 mg 10/10/18 22:00 10/14/18 10:32 Pepcid PO 20 mg BID SAUNDRA Administration Fentanyl 50 mcg 10/09/18 10:48 10/09/18 14:24 Sublimaze IV 50 mcg Q10MIN PRN Administration ANALGESIA Hydrophilic Ointment 1 applic 10/09/18 10:48 Vaseline Lip Therapy TP Q2HR PRN Dry Lips Norepinephrine 4 mg in 250 mls @ 7.5 mls/hr 10/09/18 11:00 10/10/18 05:21 Levophed Drip 4 Mg/Ns 250 Ml IV 0 mcg/min TITR SAUNDRA 0 mls/hr Titration Protocol 2 MCG/MIN Fentanyl Citrate 2,000 mcg in 100 mls @ 3.561 mls/hr 10/09/18 11:00 Fentanyl Drip Premix IV TITR SAUNDRA Protocol 1 MCG/KG/HR Midazolam HCl 100 mg/ Sodium 100 mls @ 2 mls/hr 10/09/18 11:00 10/11/18 10:50 Chloride IV 2 mg/hr TITR SAUNDRA 2 mls/hr Administration Protocol 2 MG/HR Vasopressin 20 unit/ Sodium 101 mls @ 9.09 mls/hr 10/09/18 15:00 10/10/18 06:16 Chloride IV 0 units/min TITR SAUNDRA 0 mls/hr Titration Protocol 0.03 UNITS/MIN Cefepime HCl 2 gm in 100 mls @ 200 mls/hr 10/10/18 10:00 10/14/18 14:22 Maxipime/Ns 2 Gm/100 Ml IV 200 mls/hr Q8HR SAUNDRA Administration Protocol Metronidazole 500 mg in 100 mls @ 100 mls/hr 10/12/18 16:00 10/14/18 15:37 Flagyl 500 Mg/100 Ml IV 100 mls/hr Q8H SAUNDRA Administration Protocol Insulin Human Lispro 0 unit 10/10/18 12:00 10/14/18 12:20 Humalog SUB-Q 3 unit Q6HR SAUNDRA Administration Protocol Levetiracetam 500 mg 10/11/18 10:00 10/14/18 10:31 Keppra PO 500 mg BID SAUNDRA Administration Metoprolol Tartrate 5 mg 10/10/18 09:21 10/13/18 20:08 Lopressor IV 5 mg Q6HR PRN Administration Hypertension Metoprolol Tartrate 25 mg 10/12/18 10:00 10/14/18 10:32 Lopressor PO 25 mg BID SAUNDRA Administration Midazolam HCl 2 mg 10/12/18 12:21 Versed IV Q2H PRN Sedation Modafinil 100 mg 10/14/18 13:10 10/14/18 14:22 Provigil PO 100 mg QAM SAUNDRA Administration Multi-Ingred Cream/Lotion/Oil/Oint 1 applic 10/09/18 10:48 10/09/18 18:29 Artificial Tears Ophth Oint OU 1 applic Q4HR PRN Administration Dry Eye(s) Simple Syrup 15 ml 10/10/18 10:31 Simple Syrup FEEDTUBE PRN PRN Hypoglycemia Simple Syrup 30 ml 10/10/18 10:31 Simple Syrup FEEDTUBE PRN PRN Hypoglycemia Sodium Bicarbonate 325 mg 10/10/18 10:31 Sodium Bicarbonate FEEDTUBE PRN PRN For Clogged Feeding Tube Sodium Chloride 5 ml 10/09/18 10:48 Nacl 0.9% 500 Ml IV DIRECT PRN [employer]ERIAL [employer] Sodium Chloride 10 ml 10/09/18 22:00 10/14/18 10:32 Sodium Chloride Flush Syringe 10 Ml IV 10 ml BID SAUNDRA Administration Sodium Chloride 10 ml 10/09/18 13:07 Sodium Chloride Flush Syringe 10 Ml IV PRN PRN LINE FLUSH Nutrition/Malnutrition Assess - Dietary Evaluation Nutrition/Malnutrition Findings: Nutrition Notes Start: 10/10/18 08:09 Freq: Status: Active Protocol: Document 10/13/18 10:34 LM (Rec: 10/13/18 10:40 LM [email or web address]) Nutrition Notes Initial or Follow up Reassessment Current Diagnosis Sepsis,Hypertension, Respiratory Failure Other Pertinent Diagnosis Anoxic brain injury Current Diet Vital AF 1.2 at 50 ml/hr Labs/Tests BG 139 Cr 0.3 Pertinent Medications Reviewed Height 5 ft 2 in Weight 63.7 kg [place] Body Weight (kg) 50.00 BMI 25.7 Subjective/Other Information TF running at 50 ml/hr. Pt tolerating TF well. Percent of energy/protein needs met: 100%/100% Burn Absent Trauma Absent #1 Nutrition Diagnosis Inadequate oral intake Diagnosis Progress(for reassessment Continues documentation) Is patient on ventilator? Yes Is Patient Ambulatory and/or Out of Bed No REE-([facility]-confined to bed) 1361.868 Calculation Used for Recommendations [facility] Additional Notes Protein: 76-127g (1.2-2 g/kg) Fluid: 1 ml/kcal Nutrition Intervention Change Diet Order: Continue TF Nutrition Support: Vital AF 1.2 at 50 ml/hr Flush 75 ml/hr Kcal 1,440 Protein (gm) 90 Fluid (mL) 973 Goal #1 Meet at least 75% of energy and protein needs Anticipated Discharge Needs: Unable to determine at this time Follow-Up By: 10/20/18 Additional Comments F/U for TF rate/tolerance
--- NOTE | 2018-10-14 16:27 | Progress Note ---
Assessment and Plan Cultures: 10/09 blood cultures: NGTD 10/09 urine cultures: Negative 10/09 sputum cultures: Negative A/P: 68 yo F PMHx HTN, GERD, SVT/Atrial Flutter on AC admitted with cardiac arrest, now with aspiration pneumonia 1. Septic shock secondary to aspiration pneumonia - Present with tachycardia and leukocytosis. While antibiotics are unlikely to improve her outcome given the anoxic brain injury, can continue them for now. Can stop vancomycin and add metronidazole for anaerobic coverage. 2. Cardiogenic shock - s/p resuscitation 3. Anoxic brain injury - poor prognosis for meaningful neurological recovery. 4. HTN 5. GERD 6. Fevers - Likely some component of central fevers given severe anoxic brain injury. Recs: - continue metronidazole 500mg TID - continue cefepime 2g q8h - expected duration: 8 days. Stop date: 10/18 - Prognosis: grim Thank you for the consult, we will continue to follow. Mumtaz Webster MD [facility] ([facility]) M: [phone] O: [phone] F: [phone] Subjective Date of service: 10/14/18 Principal diagnosis: Cardiac arrest with ROSC; Ac hypoxemic resp failure; Ac. encephalopathy Interval history: Remains non-responsive. Objective - Exam Narrative Exam: Constitutional: intubated, non-responsive. Head, Ears, Nose: Normocephalic, atraumatic. External ears, nose normal Eyes: Conjunctivae/corneas clear. No icterus. No ptosis. Neck: Supple, no meningeal signs Oral: dentition fair, no thrush Cardiovascular: S1, S2 normal. Respiratory: Good air entry, clear to auscultation bilaterally GI: Soft, non-tender; bowel sounds normal. No peritoneal signs. Musculoskeletal: No pedal edema, no cyanosis. Skin: No rash or abscess Hem/Lymphatic: No palpable cervical or supraclavicular nodes. No lymphangitis Neurological: intubated, non-responsive - Constitutional Vitals: Vital Signs Temp Pulse Resp BP Pulse Ox 99.9 F H 84 16 166/53 92 10/14/18 12:00 10/14/18 16:00 10/14/18 16:00 10/14/18 16:00 10/14/18 16:00 Temperature -Last 24 Hours Temperature 99.9 F Temperature 98.8 F Temperature 98 F Temperature 98.3 F Temperature 97.9 F - Labs CBC & Chem 7: 10/14/18 08:05 10/14/18 08:05 Labs: Abnormal lab results 10/13/18 10/13/18 10/14/18 Range/Units 17:18 17:53 00:00 WBC (4.5-11.0) K/mm3 RBC (3.65-5.03) M/mm3 Hgb (10.1-14.3) gm/dl Hct (30.3-42.9) % RDW (13.2-15.2) % Lymph % (Auto) (13.4-35.0) % [place] % (Auto) (0.0-7.3) % [place] # (0.0-0.8) K/mm3 Seg Neutrophils % (40.0-70.0) % Seg Neutrophils # (1.8-7.7) K/mm3 POC ABG pH (7.35-7.45) POC ABG pCO2 56.7 H (35-45) POC ABG pO2 63 L (80-105) ABG HCO3 (20.0-26.0) mmol/L ABG Base Excess (-2.0-3.0) mmol/L ABG Hemoglobin (12.0-16.0) gm/dl Oxyhemoglobin (95.0-99.0) % Carbon Dioxide (22-30) mmol/L Creatinine (0.7-1.2) mg/dL Glucose (65-100) mg/dL POC Glucose 215 H 236 H (70-105) 10/14/18 10/14/18 10/14/18 Range/Units 03:55 05:00 08:05 WBC 16.8 H (4.5-11.0) K/mm3 RBC 3.27 L (3.65-5.03) M/mm3 Hgb 9.8 L (10.1-14.3) gm/dl Hct 29.7 L (30.3-42.9) % RDW 13.1 L (13.2-15.2) % Lymph % (Auto) 7.5 L (13.4-35.0) % [place] % (Auto) 8.6 H (0.0-7.3) % [place] # 1.4 H (0.0-0.8) K/mm3 Seg Neutrophils % 82.4 H (40.0-70.0) % Seg Neutrophils # 13.8 H (1.8-7.7) K/mm3 POC ABG pH (7.35-7.45) POC ABG pCO2 (35-45) POC ABG pO2 (80-105) ABG HCO3 34.1 H (20.0-26.0) mmol/L ABG Base Excess 8.4 H (-2.0-3.0) mmol/L ABG Hemoglobin 10.6 L (12.0-16.0) gm/dl Oxyhemoglobin 94.8 L (95.0-99.0) % Carbon Dioxide (22-30) mmol/L Creatinine (0.7-1.2) mg/dL Glucose (65-100) mg/dL POC Glucose 170 H (70-105) 10/14/18 10/14/18 10/14/18 Range/Units 08:05 12:04 14:06 WBC (4.5-11.0) K/mm3 RBC (3.65-5.03) M/mm3 Hgb (10.1-14.3) gm/dl Hct (30.3-42.9) % RDW (13.2-15.2) % Lymph % (Auto) (13.4-35.0) % [place] % (Auto) (0.0-7.3) % [place] # (0.0-0.8) K/mm3 Seg Neutrophils % (40.0-70.0) % Seg Neutrophils # (1.8-7.7) K/mm3 POC ABG pH 7.330 L (7.35-7.45) POC ABG pCO2 67.6 H (35-45) POC ABG pO2 75 L (80-105) ABG HCO3 (20.0-26.0) mmol/L ABG Base Excess (-2.0-3.0) mmol/L ABG Hemoglobin (12.0-16.0) gm/dl Oxyhemoglobin (95.0-99.0) % Carbon Dioxide 33 H (22-30) mmol/L Creatinine 0.3 L (0.7-1.2) mg/dL Glucose 140 H (65-100) mg/dL POC Glucose 202 H (70-105)
--- NOTE | 2018-10-15 03:55 | XRay Report ---
CHEST 1 VIEW 0156 INDICATION / CLINICAL INFORMATION: follow up respiratory failure. COMPARISON: 10/14/2018 FINDINGS: SUPPORT DEVICES: Stable HEART / MEDIASTINUM: Stable LUNGS / PLEURA: Small left pleural effusion is again noted. Infiltrate in the left base appears impro sarai. Right lung field is clear. No pneumothorax. ADDITIONAL FINDINGS: No significant additional findings. IMPRESSION: Improvement in the left base Signer Name: Saeed Whiteside MD Signed: 10/15/2018 3:51 AM Workstation Name: [id number]
[2018-10-15] MEDS: MAXIPIME/NS 2 GM/100 ML 2 GM/100 ML BAG IV SCH ×3 (05:13→20:59)
[2018-10-15] MEDS: CARDIZEM PO SCH ×4 (05:13→23:14)
[2018-10-15 05:26] LABS: Basophils # (Auto) 0.1 K/mm3 (0.0-0.1); Basophils % (Auto) 0.3 % (0.0-1.8); Eosinophils # (Auto) 0.3 K/mm3 (0.0-0.4); Eosinophils % (Auto) 1.7 % (0.0-4.3); Hematocrit 30.5 % (30.3-42.9); Hemoglobin 10.2 gm/dl (10.1-14.3); Lymphocytes # (Auto) 1.3 K/mm3 (1.2-5.4); Lymphocytes % (Auto) 7.5 % (13.4-35.0); Mean Corpuscular HGB Conc 34 % (30-34); Mean Corpuscular Volume 91 fl (79-97); Monocytes # (Auto) 1.3 K/mm3 (0.0-0.8); Monocytes % (Auto) 7.3 % (0.0-7.3); Platelet Count 174 K/mm3 (140-440); Red Blood Count 3.36 M/mm3 (3.65-5.03); Red Cell Distribution Width 13.3 % (13.2-15.2)
[2018-10-15 05:38] LABS: BUN/Creatinine Ratio 63; Blood Urea Nitrogen 19 mg/dL (7-17); Calcium 9.8 mg/dL (8.4-10.2); Hemolysis Index 33
[2018-10-15] MEDS: HumaLOG SUB-Q SCH ×4 (05:50→23:13)
[2018-10-15] MEDS: FLAGYL 500 MG/100 ML 500 MG/100 ML BAG IV SCH ×3 (07:56→23:13)
[2018-10-15] MEDS: PROVIGIL PO SCH (09:57)
[2018-10-15] MEDS: LOPRESSOR PO SCH ×2 (09:57→20:45)
[2018-10-15] MEDS: PEPCID PO SCH ×2 (09:58→21:00)
[2018-10-15] MEDS: KEPPRA PO SCH ×2 (10:01→21:00)
[2018-10-15] MEDS: ELIQUIS PO SCH ×2 (10:02→21:00)
[2018-10-15] MEDS: SODIUM CHLORIDE FLUSH SYRINGE 10 ML IV SCH ×2 (10:03→21:02)
--- NOTE | 2018-10-15 10:19 | Progress Note ---
Assessment and Plan Assessment and plan: Sepsis. Patient off pressors. Continue antibiotics per infectious disease. Left lower lobe pneumonia. Continue antibiotics per ID recommendation Anoxic brain injury. EEG per Neurology shows no epileptiform abnormalities, focal or lateralizing features, or significant interhemispheric findings.. MRI findings consistent with anoxic brain injury. Keppra started per neurology twice a day for seizure prophylaxis. Start Provigil Cardiopulmonary arrest. Echo revealed EF 60-65%, mild LVH, impaired relaxation, mild TR, mild pulm HTN RVSP 48mmHg, small pericardial effusion, left pleural effusion. Continue supportive care. S/P ACLS protocol initiation with return of cardiac rhythm Acute hypoxemic respiratory failure. Continue mechanical ventilation per pulmonary. Cont. SBT. Patient will need consideration for trach and PEG discussions on Tuesday. Paroxysmal atrial fibrillation. Per cardiology recommendations. Hypertension. Continue antihypertensive medications as needed. Elevated LFTs. Etiology likely secondary to sepsis/shock/ischemic hepatitis. POLLY. Per pulmonary. Overall poor prognosis with minimal chance for neurological recovery The high probability of a clinically significant, sudden or life threatening deterioration of the [neurological and respiratory] system(s) required my full and direct attention, intervention and personal management. The aggregate critical care time was [32] minutes. This time is in addition to time spent performing reported procedures but includes the following: [x] Data Review and interpretation [x] Patient assessment and monitoring of vital signs [x] Documentation [x] Medication orders and management History Interval history: Patient remains on mechanical ventilation. Hospitalist Physical - Constitutional Vitals: Temp Pulse Resp BP Pulse Ox 98.1 F 95 H 18 184/65 100 10/15/18 08:00 10/15/18 09:57 10/15/18 09:00 10/15/18 09:57 10/15/18 09:00 General appearance: Present: no acute distress, other (orally intubated) - EENT Eyes: Present: PERRL, EOM intact ENT: hearing intact, clear oral mucosa, dentition normal - Neck Neck: Present: supple, normal ROM - Respiratory Respiratory effort: normal Respiratory: bilateral: CTA - Cardiovascular Rhythm: regular Heart Sounds: Present: S1 & S2. Absent: gallop, rub - Extremities Extremities: no ischemia, No edema, Full ROM - Abdominal General gastrointestinal: soft, non-tender, non-distended, normal bowel sounds - Integumentary Integumentary: Present: clear, warm, dry - Neurologic Neurologic: CNII-XII intact, moves all extremities Results - Labs CBC & Chem 7: 10/15/18 05:03 10/15/18 05:03 Labs: Laboratory Last Values WBC 18.0 K/mm3 (4.5-11.0) H 10/15/18 05:03 RBC 3.36 M/mm3 (3.65-5.03) L 10/15/18 05:03 Hgb 10.2 gm/dl (10.1-14.3) 10/15/18 05:03 Hct 30.5 % (30.3-42.9) 10/15/18 05:03 MCV 91 fl (79-97) 10/15/18 05:03 MCH 30 pg (28-32) 10/15/18 05:03 MCHC 34 % (30-34) 10/15/18 05:03 RDW 13.3 % (13.2-15.2) 10/15/18 05:03 Plt Count 174 K/mm3 (140-440) 10/15/18 05:03 Lymph % (Auto) 7.5 % (13.4-35.0) L 10/15/18 05:03 [place] % (Auto) 7.3 % (0.0-7.3) 10/15/18 05:03 Eos % (Auto) 1.7 % (0.0-4.3) 10/15/18 05:03 Baso % (Auto) 0.3 % (0.0-1.8) 10/15/18 05:03 Lymph # 1.3 K/mm3 (1.2-5.4) 10/15/18 05:03 [place] # 1.3 K/mm3 (0.0-0.8) H 10/15/18 05:03 Eos # 0.3 K/mm3 (0.0-0.4) 10/15/18 05:03 Baso # 0.1 K/mm3 (0.0-0.1) 10/15/18 05:03 Add Manual Diff Complete 10/11/18 04:45 Total Counted 100 10/11/18 04:45 Seg Neutrophils % 83.2 % (40.0-70.0) H 10/15/18 05:03 Seg Neuts % (Manual) 83.0 % (40.0-70.0) H 10/11/18 04:45 0 % 10/11/18 04:45 14.0 % (13.4-35.0) 10/11/18 04:45 Reactive Lymphs % (Man) 0 % 10/11/18 04:45 3.0 % (0.0-7.3) 10/11/18 04:45 0 % (0.0-4.3) 10/11/18 04:45 0 % (0.0-1.8) 10/11/18 04:45 0 % 10/11/18 04:45 0 % 10/11/18 04:45 0 % 10/11/18 04:45 0 % 10/11/18 04:45 Nucleated RBC % Not Reportable 10/11/18 04:45 Seg Neutrophils # 15.0 K/mm3 (1.8-7.7) H 10/15/18 05:03 Seg Neutrophils # Man 21.4 K/mm3 (1.8-7.7) H 10/11/18 04:45 Band Neutrophils # 0.0 K/mm3 10/11/18 04:45 3.6 K/mm3 (1.2-5.4) 10/11/18 04:45 Abs React Lymphs (Man) 0.0 K/mm3 10/11/18 04:45 0.8 K/mm3 (0.0-0.8) 10/11/18 04:45 0.0 K/mm3 (0.0-0.4) 10/11/18 04:45 0.0 K/mm3 (0.0-0.1) 10/11/18 04:45 0.0 K/mm3 10/11/18 04:45 0.0 K/mm3 10/11/18 04:45 0.0 K/mm3 10/11/18 04:45 Blast Cells # 0.0 K/mm3 10/11/18 04:45 WBC Morphology Not Reportable 10/11/18 04:45 Hypersegmented Neuts Not Reportable 10/11/18 04:45 Hyposegmented Neuts Not Reportable 10/11/18 04:45 Hypogranular Neuts Not Reportable 10/11/18 04:45 Not Reportable 10/11/18 04:45 Not Reportable 10/11/18 04:45 Not Reportable 10/11/18 04:45 Not Reportable 10/11/18 04:45 Not Reportable 10/11/18 04:45 Not Reportable 10/11/18 04:45 Consistent w auto 10/11/18 04:45 Not Reportable 10/11/18 04:45 Plt Clumps, EDTA Not Reportable 10/11/18 04:45 Not Reportable 10/11/18 04:45 Not Reportable 10/11/18 04:45 Not Reportable 10/11/18 04:45 Plt Morphology Comment Not Reportable 10/11/18 04:45 RBC Morphology Not Reportable 10/11/18 04:45 Dimorphic RBCs Not Reportable 10/11/18 04:45 Not Reportable 10/11/18 04:45 Not Reportable 10/11/18 04:45 Not Reportable 10/11/18 04:45 Few 10/11/18 04:45 Not Reportable 10/11/18 04:45 Not Reportable 10/11/18 04:45 Not Reportable 10/11/18 04:45 Not Reportable 10/11/18 04:45 Not Reportable 10/11/18 04:45 Not Reportable 10/11/18 04:45 Not Reportable 10/11/18 04:45 Few 10/11/18 04:45 Not Reportable 10/11/18 04:45 Not Reportable 10/11/18 04:45 Not Reportable 10/11/18 04:45 Not Reportable 10/11/18 04:45 Not Reportable 10/11/18 04:45 Not Reportable 10/11/18 04:45 Not Reportable 10/11/18 04:45 Acanthocytes (Spur) Not Reportable 10/11/18 04:45 Rouleaux Not Reportable 10/11/18 04:45 Not Reportable 10/11/18 04:45 Not Reportable 10/11/18 04:45 Not Reportable 10/11/18 04:45 Not Reportable 10/11/18 04:45 Hem Pathologist Commnt No 10/11/18 04:45 PT 16.6 Sec. (12.2-14.9) H 10/09/18 10:50 INR 1.38 (0.87-1.13) H 10/09/18 10:50 APTT 39.4 Sec. (24.2-36.6) H 10/09/18 10:50 POC ABG pH 7.421 (7.35-7.45) 10/15/18 04:58 ABG pH 7.426 pH Units (7.350-7.450) 10/14/18 03:55 POC ABG pCO2 54.9 (35-45) H 10/15/18 04:58 ABG pCO2 53.1 mm Hg 10/14/18 03:55 POC ABG pO2 72 (80-105) L 10/15/18 04:58 ABG pO2 83.1 mm Hg (80.0-90.0) 10/14/18 03:55 POC ABG HCO3 35.7 (22-26 mml/L) 10/15/18 04:58 ABG HCO3 34.1 mmol/L (20.0-26.0) H 10/14/18 03:55 POC ABG Total CO2 37 (23-27mmol/L) 10/15/18 04:58 POC ABG O2 Sat 94 10/15/18 04:58 ABG O2 Saturation 96.8 % (95.0-99.0) 10/14/18 03:55 ABG O2 Content 14.2 (0.0-44) 10/14/18 03:55 POC ABG Base Excess 11 ((-2) - (+3)mmol/L) 10/15/18 04:58 ABG Base Excess 8.4 mmol/L (-2.0-3.0) H 10/14/18 03:55 ABG Hemoglobin 10.6 gm/dl (12.0-16.0) L 10/14/18 03:55 ABG Carboxyhemoglobin 1.5 % (0.0-5.0) 10/14/18 03:55 ABG Methemoglobin 0.5 % (0.0-1.5) 10/14/18 03:55 94.8 % (95.0-99.0) L 10/14/18 03:55 30 % 10/15/18 04:58 Sodium 140 mmol/L (137-145) 10/15/18 05:03 Potassium 4.4 mmol/L (3.6-5.0) 10/15/18 05:03 Chloride 99.6 mmol/L (98-107) 10/15/18 05:03 Carbon Dioxide 33 mmol/L (22-30) H 10/15/18 05:03 12 mmol/L 10/15/18 05:03 BUN 19 mg/dL (7-17) H 10/15/18 05:03 0.3 mg/dL (0.7-1.2) L 10/15/18 05:03 Estimated GFR > 60 ml/min 10/15/18 05:03 63 % 10/15/18 05:03 Glucose 161 mg/dL (65-100) H 10/15/18 05:03 POC Glucose 191 (70-105) H 10/15/18 05:54 Lactic Acid 1.90 mmol/L (0.7-2.0) 10/09/18 20:50 Calcium 9.8 mg/dL (8.4-10.2) 10/15/18 05:03 Magnesium 3.70 mg/dL (1.7-2.3) H 10/09/18 10:50 0.30 mg/dL (0.1-1.2) 10/09/18 10:50 AST 51 units/L (5-40) H 10/09/18 10:50 ALT 67 units/L (7-56) H 10/09/18 10:50 60 units/L (35-129) 10/09/18 10:50 171 units/L (30-135) H 10/09/18 10:50 < 0.010 ng/mL (0.00-0.029) 10/09/18 10:50 2.70 mg/dL (0.00-1.30) H 10/12/18 13:03 5.3 g/dL (6.3-8.2) L 10/09/18 10:50 3.0 g/dL (3.9-5) L 10/09/18 10:50 1.3 % 10/09/18 10:50 Yellow (Yellow) 10/09/18 12:12 Hazy (Clear) 10/09/18 12:12 7.0 (5.0-7.0) 10/09/18 12:12 Ur Specific [place] 1.011 (1.003-1.030) 10/09/18 12:12 100 mg/dl mg/dL (Negative) 10/09/18 12:12 150 mg/dL (Negative) 10/09/18 12:12 Neg mg/dL (Negative) 10/09/18 12:12 Sm (Negative) 10/09/18 12:12 Neg (Negative) 10/09/18 12:12 Neg (Negative) 10/09/18 12:12 < 2.0 mg/dL (<2.0) 10/09/18 12:12 Ur Leukocyte Esterase Neg (Negative) 10/09/18 12:12 8.0 /HPF (0.0-6.0) H 10/09/18 12:12 7.0 /HPF (0.0-6.0) 10/09/18 12:12 Few /HPF 10/09/18 12:12 Vancomycin Trough 4.8 ug/mL (5.0-20.0) L 10/12/18 22:33 Salicylates < 0.3 mg/dL (2.8-20.0) L 10/09/18 10:50 Acetaminophen < 5.0 ug/mL (10.0-30.0) L 10/09/18 10:50 Plasma/Serum Alcohol < 0.01 % (0-0.07) 10/09/18 10:50 Active Medications - Current Medications Current Medications: Generic Name Dose Route Start Last Admin Trade Name Freq PRN Reason Stop Dose Admin Acetaminophen 650 mg 10/10/18 00:18 10/10/18 00:34 Tylenol [place] 650 mg Q4H PRN Administration Pain, Mild (1-3) Albuterol 2.5 mg 10/12/18 12:20 Proventil IH Q4HRT PRN Shortness Of Breath Lipase/Protease/Amylase 1 each 10/10/18 10:[address] 10,500 Unit FEEDTUBE PRN PRN For Clogged Feeding Tube Apixaban 5 mg 10/09/18 22:00 10/15/18 10:02 Eliquis PO 5 mg BID SAUNDRA Administration Protocol Diltiazem HCl 60 mg 10/10/18 12:00 10/15/18 05:13 Cardizem PO 60 mg Q6HR SAUNDRA Administration Famotidine 20 mg 10/10/18 22:00 10/15/18 09:58 Pepcid PO 20 mg BID SAUNDRA Administration Fentanyl 50 mcg 10/09/18 10:48 10/09/18 14:24 Sublimaze IV 50 mcg Q10MIN PRN Administration ANALGESIA Hydrophilic Ointment 1 applic 10/09/18 10:48 Vaseline Lip Therapy TP Q2HR PRN Dry Lips Norepinephrine 4 mg in 250 mls @ 7.5 mls/hr 10/09/18 11:00 10/10/18 05:21 Levophed Drip 4 Mg/Ns 250 Ml IV 0 mcg/min TITR SAUNDRA 0 mls/hr Titration Protocol 2 MCG/MIN Fentanyl Citrate 2,000 mcg in 100 mls @ 3.561 mls/hr 10/09/18 11:00 Fentanyl Drip Premix IV TITR SAUNDRA Protocol 1 MCG/KG/HR Midazolam HCl 100 mg/ Sodium 100 mls @ 2 mls/hr 10/09/18 11:00 10/11/18 10:50 Chloride IV 2 mg/hr TITR SAUNDRA 2 mls/hr Administration Protocol 2 MG/HR Vasopressin 20 unit/ Sodium 101 mls @ 9.09 mls/hr 10/09/18 15:00 10/10/18 06:16 Chloride IV 0 units/min TITR SAUNDRA 0 mls/hr Titration Protocol 0.03 UNITS/MIN Cefepime HCl 2 gm in 100 mls @ 200 mls/hr 10/10/18 10:00 10/15/18 05:13 Maxipime/Ns 2 Gm/100 Ml IV 200 mls/hr Q8HR SAUNDRA Administration Protocol Metronidazole 500 mg in 100 mls @ 100 mls/hr 10/12/18 16:00 10/15/18 07:56 Flagyl 500 Mg/100 Ml IV 100 mls/hr Q8H SAUNDRA Administration Protocol Insulin Human Lispro 0 unit 10/10/18 12:00 10/15/18 05:50 Humalog SUB-Q 2 unit Q6HR SAUNDRA Administration Protocol Levetiracetam 500 mg 10/11/18 10:00 10/15/18 10:01 Keppra PO 500 mg BID SAUNDRA Administration Metoprolol Tartrate 5 mg 10/10/18 09:21 10/13/18 20:08 Lopressor IV 5 mg Q6HR PRN Administration Hypertension Metoprolol Tartrate 25 mg 10/12/18 10:00 10/15/18 09:57 Lopressor PO 25 mg BID SAUNDRA Administration Midazolam HCl 2 mg 10/12/18 12:21 Versed IV Q2H PRN Sedation Modafinil 100 mg 10/14/18 13:10 10/15/18 09:57 Provigil PO 100 mg QAM SAUNDRA Administration Multi-Ingred Cream/Lotion/Oil/Oint 1 applic 10/09/18 10:48 10/09/18 18:29 Artificial Tears Ophth Oint OU 1 applic Q4HR PRN Administration Dry Eye(s) Simple Syrup 15 ml 10/10/18 10:31 Simple Syrup FEEDTUBE PRN PRN Hypoglycemia Simple Syrup 30 ml 10/10/18 10:31 Simple Syrup FEEDTUBE PRN PRN Hypoglycemia Sodium Bicarbonate 325 mg 10/10/18 10:31 Sodium Bicarbonate FEEDTUBE PRN PRN For Clogged Feeding Tube Sodium Chloride 5 ml 10/09/18 10:48 Nacl 0.9% 500 Ml IV DIRECT PRN [employer] Sodium Chloride 10 ml 10/09/18 22:00 10/15/18 10:03 Sodium Chloride Flush Syringe 10 Ml IV 10 ml BID SAUNDRA Administration Sodium Chloride 10 ml 10/09/18 13:07 Sodium Chloride Flush Syringe 10 Ml IV PRN PRN LINE FLUSH Nutrition/Malnutrition Assess - Dietary Evaluation Nutrition/Malnutrition Findings: Nutrition Notes Start: 10/10/18 08:09 Freq: Status: Active Protocol: Document 10/13/18 10:34 LM (Rec: 10/13/18 10:40 LM [email or web address]) Nutrition Notes Initial or Follow up Reassessment Current Diagnosis Sepsis,Hypertension, Respiratory Failure Other Pertinent Diagnosis Anoxic brain injury Current Diet Vital AF 1.2 at 50 ml/hr Labs/Tests BG 139 Cr 0.3 Pertinent Medications Reviewed Height 5 ft 2 in Weight 63.7 kg [place] Body Weight (kg) 50.00 BMI 25.7 Subjective/Other Information TF running at 50 ml/hr. Pt tolerating TF well. Percent of energy/protein needs met: 100%/100% Burn Absent Trauma Absent #1 Nutrition Diagnosis Inadequate oral intake Diagnosis Progress(for reassessment Continues documentation) Is patient on ventilator? Yes Is Patient Ambulatory and/or Out of Bed No REE-([place]-St. Jeor-confined to bed) 1361.868 Calculation Used for Recommendations [place]-St Jeor Additional Notes Protein: 76-127g (1.2-2 g/kg) Fluid: 1 ml/kcal Nutrition Intervention Change Diet Order: Continue TF Nutrition Support: Vital AF 1.2 at 50 ml/hr Flush 75 ml/hr Kcal 1,440 Protein (gm) 90 Fluid (mL) 973 Goal #1 Meet at least 75% of energy and protein needs Anticipated Discharge Needs: Unable to determine at this time Follow-Up By: 10/20/18 Additional Comments F/U for TF rate/tolerance
--- NOTE | 2018-10-15 11:37 | Progress Note ---
Assessment and Plan s/p cardiopulmonary arrest-OOH with ROSC Acute hyoxemic respiratory failure on MVS Acute hypercapnic respiratory failure Acute encephalopathy- metabolic Sepsis Aspiration pneumonia LLL Myoclonic jerks, post arrest Atrial fibrillation with RVR (family still discussing goals of care) - increased metoprolol to 50 mg bid - continue Provigil - continue daily SAT and SBT assessments as tolerated - continue prn albuterol nebs - VAP bundle addressed - continue to wean supplemental O2 to keep O2 sats > 90% - follow 2D ECHO - VTE prophylaxis - Stress ulcer prophylaxis - Continue OGT for nutrition and oral medications - Tube feeding for nutritional support - continue accuchecks with glycemic control per SSI for target blood glucose 140-180mg/dL - follow official EEG report - continue empiric antibiotics for aspiration pneumonia (MRSA and GNR coverage re: recent health care facility associations) - resume chronic home medications per attending - continue Midazolam for sedation and seizure management - continue Keppra - neurology evaluation ongoing - continue mobility protocols / off loading for pressure ulcer prevention - Critical care bundles addressed - continue Seizure precautions - fall precautions - neuro-checks per RN - continue other care per attending / other consultants CONDITION: CRITICAL PROGNOSIS: GUARDED TO GRAVE CODE STATUS: FULL CODE The high probability of a clinically significant, sudden or life threatening deterioration of the [Neurology Respiratory, Cardiovascular] system(s) required my full and direct attention, intervention and personal management. The [facility] critical care time was [37] minutes. This time is in addition to time spent performing reported procedures but includes the following: [x] Data Review and interpretation [x] Patient assessment and monitoring of vital signs [x] Documentation [x] Medication orders and management Subjective Date of service: 10/15/18 Principal diagnosis: Cardiac arrest with ROSC; Ac hypoxemic resp failure; Ac. encephalopathy Interval history: Follow up for: OOH cardiac arrest with ROSC; acute hypoxic-hypercapnic respiratory failure; myoclonic jerks; acute metabolic encephalopathy Seen and examined at bedside; 24hour events reviewed; nursing and respiratory care staff consulted; no adverse overnight events reported to me; resting peacefully in bed; BP's running high; remains on MVS; no CPAP trials today due to acute decompensation prior; AMS is persistent; extensive discussion held with son's regarding care plan and theor questions were answered with RN in attendance Objective Vital Signs - 12hr 10/14/18 10/14/18 10/15/18 23:39 23:42 00:00 Temperature 98.9 F 98.9 F Pulse Rate 74 Pulse Rate [ 74 From Monitor] Respiratory 15 Rate Blood Pressure 135/48 O2 Sat by Pulse 97 Oximetry 10/15/18 10/15/18 10/15/18 00:01 00:06 01:00 Temperature Pulse Rate 74 74 79 Pulse Rate [ From Monitor] Respiratory 13 14 Rate Blood Pressure 135/48 135/48 148/55 O2 Sat by Pulse 97 98 95 Oximetry 10/15/18 10/15/18 10/15/18 02:00 03:00 04:00 Temperature 98.1 F Pulse Rate 87 88 88 Pulse Rate [ 87 From Monitor] Respiratory 16 16 15 Rate Blood Pressure 166/65 167/61 171/68 O2 Sat by Pulse 93 92 98 Oximetry 10/15/18 10/15/18 10/15/18 04:48 05:00 05:13 Temperature Pulse Rate 87 94 H 95 H Pulse Rate [ From Monitor] Respiratory 15 Rate Blood Pressure 171/68 176/69 176/69 O2 Sat by Pulse 100 99 Oximetry 10/15/18 10/15/18 10/15/18 06:00 07:00 07:16 Temperature Pulse Rate 82 87 86 Pulse Rate [ From Monitor] Respiratory 18 18 Rate Blood Pressure 158/61 180/66 180/66 O2 Sat by Pulse 99 99 99 Oximetry 10/15/18 10/15/18 10/15/18 07:58 08:00 09:00 Temperature 98.1 F Pulse Rate 90 90 94 H Pulse Rate [ 90 From Monitor] Respiratory 18 18 Rate Blood Pressure 178/69 184/65 O2 Sat by Pulse 99 100 Oximetry 10/15/18 10/15/18 10/15/18 09:57 10:00 11:00 Temperature Pulse Rate 95 H 98 H 78 Pulse Rate [ From Monitor] Respiratory 18 14 Rate Blood Pressure 184/65 195/70 184/65 O2 Sat by Pulse 99 100 Oximetry Constitutional: no acute distress, other (+ myoclonic jerks during sedation vacations) Eyes: non-icteric ENT: oropharynx moist, other (ETT at 23cm to MVS) Neck: supple, no lymphadenopathy, no JVD Effort: mildly labored Ascultation: Bilateral: diminished breath sounds, rhonchi Percussion: Bilateral: not dull Cardiovascular: other (irregular, tacycardia, S1,S2) Gastrointestinal: normoactive bowel sounds, soft, non-tender, non-distended Integumentary: normal Extremities: no cyanosis, no edema, pink and warm, pulses normal Neurologic: unable to assess, other (posturing to painful stimuli, Pupils are minimally reactive) Psychiatric: other (unable to assess) CBC and BMP: 10/16/18 05:12 10/16/18 05:12 ABG, PT/INR, D-dimer: ABG POC ABG pH 7.421 (7.35-7.45) 10/15/18 04:58 ABG pH 7.426 pH Units (7.350-7.450) 10/14/18 03:55 POC ABG pCO2 54.9 (35-45) H 10/15/18 04:58 ABG pCO2 53.1 mm Hg 10/14/18 03:55 POC ABG pO2 72 (80-105) L 10/15/18 04:58 ABG pO2 83.1 mm Hg (80.0-90.0) 10/14/18 03:55 POC ABG HCO3 35.7 (22-26 mml/L) 10/15/18 04:58 POC ABG Total CO2 37 (23-27mmol/L) 10/15/18 04:58 POC ABG O2 Sat 94 10/15/18 04:58 ABG O2 Saturation 96.8 % (95.0-99.0) 10/14/18 03:55 PT/INR, D-dimer PT 16.6 Sec. (12.2-14.9) H 10/09/18 10:50 INR 1.38 (0.87-1.13) H 10/09/18 10:50 Abnormal lab findings: Abnormal Labs 10/09/18 10/09/18 10/09/18 10:14 10:50 10:50 WBC RBC Hgb Hct RDW Lymph % (Auto) [place] % (Auto) [place] # Seg Neutrophils % Seg Neuts % (Manual) Lymphocytes % (Manual) Seg Neutrophils # Seg Neutrophils # Man Monocytes # (Manual) PT 16.6 H INR 1.38 H APTT 39.4 H POC ABG pH POC ABG pCO2 POC ABG pO2 ABG pO2 ABG HCO3 ABG Base Excess ABG Hemoglobin Oxyhemoglobin Chloride 90.3 L Carbon Dioxide BUN 21 H Creatinine Glucose 315 H POC Glucose 344 H Lactic Acid Magnesium AST 51 H ALT 67 H Total Creatine Kinase C-Reactive Protein Total Protein 5.3 L Albumin 3.0 L Urine WBC (Auto) Vancomycin Trough Salicylates Acetaminophen 10/09/18 10/09/18 10/09/18 10:50 10:50 10:50 WBC RBC Hgb Hct RDW Lymph % (Auto) [place] % (Auto) [place] # Seg Neutrophils % Seg Neuts % (Manual) Lymphocytes % (Manual) Seg Neutrophils # Seg Neutrophils # Man Monocytes # (Manual) PT INR APTT POC ABG pH POC ABG pCO2 POC ABG pO2 ABG pO2 ABG HCO3 ABG Base Excess ABG Hemoglobin Oxyhemoglobin Chloride Carbon Dioxide BUN Creatinine Glucose POC Glucose Lactic Acid Magnesium 3.70 H AST ALT Total Creatine Kinase 171 H C-Reactive Protein Total Protein Albumin Urine WBC (Auto) Vancomycin Trough Salicylates < 0.3 L Acetaminophen < 5.0 L 10/09/18 10/09/18 10/09/18 10:50 10:55 11:38 WBC 31.3 H RBC Hgb Hct RDW 13.0 L Lymph % (Auto) [place] % (Auto) [place] # Seg Neutrophils % Seg Neuts % (Manual) 91.5 H Lymphocytes % (Manual) 4.5 L Seg Neutrophils # Seg Neutrophils # Man 28.6 H Monocytes # (Manual) 1.1 H PT INR APTT POC ABG pH 7.243 L POC ABG pCO2 68.0 H POC ABG pO2 389 H ABG pO2 ABG HCO3 ABG Base Excess ABG Hemoglobin Oxyhemoglobin Chloride Carbon Dioxide BUN Creatinine Glucose POC Glucose Lactic Acid 9.30 H* Magnesium AST ALT Total Creatine Kinase C-Reactive Protein Total Protein Albumin Urine WBC (Auto) Vancomycin Trough Salicylates Acetaminophen 10/09/18 10/09/18 10/09/18 12:12 15:28 16:27 WBC RBC Hgb Hct RDW Lymph % (Auto) [place] % (Auto) [place] # Seg Neutrophils % Seg Neuts % (Manual) Lymphocytes % (Manual) Seg Neutrophils # Seg Neutrophils # Man Monocytes # (Manual) PT INR APTT POC ABG pH 7.598 H POC ABG pCO2 POC ABG pO2 61 L ABG pO2 ABG HCO3 ABG Base Excess ABG Hemoglobin Oxyhemoglobin Chloride Carbon Dioxide BUN Creatinine Glucose POC Glucose 173 H Lactic Acid Magnesium AST ALT Total Creatine Kinase C-Reactive Protein Total Protein Albumin Urine WBC (Auto) 8.0 H Vancomycin Trough Salicylates Acetaminophen 10/09/18 10/09/18 10/09/18 16:44 16:44 18:38 WBC RBC Hgb Hct RDW Lymph % (Auto) [place] % (Auto) [place] # Seg Neutrophils % Seg Neuts % (Manual) Lymphocytes % (Manual) Seg Neutrophils # Seg Neutrophils # Man Monocytes # (Manual) PT INR APTT POC ABG pH POC ABG pCO2 POC ABG pO2 ABG pO2 ABG HCO3 ABG Base Excess ABG Hemoglobin Oxyhemoglobin Chloride Carbon Dioxide BUN Creatinine Glucose POC Glucose 177 H Lactic Acid 3.80 H* 3.70 H* Magnesium AST ALT Total Creatine Kinase C-Reactive Protein Total Protein Albumin Urine WBC (Auto) Vancomycin Trough Salicylates Acetaminophen 10/10/18 10/10/18 10/10/18 00:33 04:24 05:32 WBC RBC Hgb Hct RDW Lymph % (Auto) [place] % (Auto) [place] # Seg Neutrophils % Seg Neuts % (Manual) Lymphocytes % (Manual) Seg Neutrophils # Seg Neutrophils # Man Monocytes # (Manual) PT INR APTT POC ABG pH 7.602 H POC ABG pCO2 POC ABG pO2 170 H ABG pO2 ABG HCO3 ABG Base Excess ABG Hemoglobin Oxyhemoglobin Chloride Carbon Dioxide BUN Creatinine Glucose POC Glucose 177 H 190 H Lactic Acid Magnesium AST ALT Total Creatine Kinase C-Reactive Protein Total Protein Albumin Urine WBC (Auto) Vancomycin Trough Salicylates Acetaminophen 10/10/18 10/10/18 10/10/18 07:54 07:54 12:18 WBC 38.6 H RBC Hgb Hct RDW Lymph % (Auto) [place] % (Auto) [place] # Seg Neutrophils % Seg Neuts % (Manual) Lymphocytes % (Manual) Seg Neutrophils # Seg Neutrophils # Man Monocytes # (Manual) PT INR APTT POC ABG pH POC ABG pCO2 POC ABG pO2 ABG pO2 ABG HCO3 ABG Base Excess ABG Hemoglobin Oxyhemoglobin Chloride Carbon Dioxide BUN 31 H Creatinine Glucose 124 H POC Glucose 151 H Lactic Acid Magnesium AST ALT Total Creatine Kinase C-Reactive Protein Total Protein Albumin Urine WBC (Auto) Vancomycin Trough Salicylates Acetaminophen 10/10/18 10/10/18 10/11/18 18:17 23:09 03:40 WBC RBC Hgb Hct RDW Lymph % (Auto) [place] % (Auto) [place] # Seg Neutrophils % Seg Neuts % (Manual) Lymphocytes % (Manual) Seg Neutrophils # Seg Neutrophils # Man Monocytes # (Manual) PT INR APTT POC ABG pH POC ABG pCO2 POC ABG pO2 ABG pO2 91.1 H ABG HCO3 28.8 H ABG Base Excess ABG Hemoglobin 7.6 L Oxyhemoglobin Chloride Carbon Dioxide BUN Creatinine Glucose POC Glucose 132 H 124 H Lactic Acid Magnesium AST ALT Total Creatine Kinase C-Reactive Protein Total Protein Albumin Urine WBC (Auto) Vancomycin Trough Salicylates Acetaminophen 10/11/18 10/11/18 10/11/18 04:45 04:45 06:50 WBC 25.8 H RBC 3.41 L Hgb Hct RDW Lymph % (Auto) [place] % (Auto) [place] # Seg Neutrophils % Seg Neuts % (Manual) 83.0 H Lymphocytes % (Manual) Seg Neutrophils # Seg Neutrophils # Man 21.4 H Monocytes # (Manual) PT INR APTT POC ABG pH POC ABG pCO2 POC ABG pO2 ABG pO2 ABG HCO3 ABG Base Excess ABG Hemoglobin Oxyhemoglobin Chloride Carbon Dioxide BUN 26 H Creatinine 0.6 L Glucose 134 H POC Glucose 134 H Lactic Acid Magnesium AST ALT Total Creatine Kinase C-Reactive Protein Total Protein Albumin Urine WBC (Auto) Vancomycin Trough Salicylates Acetaminophen 10/11/18 10/11/18 10/12/18 13:10 18:08 00:25 WBC RBC Hgb Hct RDW Lymph % (Auto) [place] % (Auto) [place] # Seg Neutrophils % Seg Neuts % (Manual) Lymphocytes % (Manual) Seg Neutrophils # Seg Neutrophils # Man Monocytes # (Manual) PT INR APTT POC ABG pH POC ABG pCO2 POC ABG pO2 ABG pO2 ABG HCO3 ABG Base Excess ABG Hemoglobin Oxyhemoglobin Chloride Carbon Dioxide BUN Creatinine Glucose POC Glucose 160 H 166 H 136 H Lactic Acid Magnesium AST ALT Total Creatine Kinase C-Reactive Protein Total Protein Albumin Urine WBC (Auto) Vancomycin Trough Salicylates Acetaminophen 10/12/18 10/12/18 10/12/18 03:56 04:17 04:17 WBC 19.2 H RBC 3.04 L Hgb 8.9 L Hct 27.2 L RDW Lymph % (Auto) 8.5 L [place] % (Auto) [place] # 1.4 H Seg Neutrophils % 84.2 H Seg Neuts % (Manual) Lymphocytes % (Manual) Seg Neutrophils # 16.2 H Seg Neutrophils # Man Monocytes # (Manual) PT INR APTT POC ABG pH POC ABG pCO2 POC ABG pO2 ABG pO2 77.9 L ABG HCO3 29.4 H ABG Base Excess 4.4 H ABG Hemoglobin 10.2 L Oxyhemoglobin 94.7 L Chloride Carbon Dioxide BUN Creatinine 0.5 L Glucose 139 H POC Glucose Lactic Acid Magnesium AST ALT Total Creatine Kinase C-Reactive Protein Total Protein Albumin Urine WBC (Auto) Vancomycin Trough Salicylates Acetaminophen 10/12/18 10/12/18 10/12/18 05:51 11:46 13:03 WBC RBC Hgb Hct RDW Lymph % (Auto) [place] % (Auto) [place] # Seg Neutrophils % Seg Neuts % (Manual) Lymphocytes % (Manual) Seg Neutrophils # Seg Neutrophils # Man Monocytes # (Manual) PT INR APTT POC ABG pH POC ABG pCO2 POC ABG pO2 ABG pO2 ABG HCO3 ABG Base Excess ABG Hemoglobin Oxyhemoglobin Chloride Carbon Dioxide BUN Creatinine Glucose POC Glucose 163 H 162 H Lactic Acid Magnesium AST ALT Total Creatine Kinase C-Reactive Protein 2.70 H Total Protein Albumin Urine WBC (Auto) Vancomycin Trough Salicylates Acetaminophen 10/12/18 10/12/18 10/12/18 17:44 22:33 23:54 WBC RBC Hgb Hct RDW Lymph % (Auto) [place] % (Auto) [place] # Seg Neutrophils % Seg Neuts % (Manual) Lymphocytes % (Manual) Seg Neutrophils # Seg Neutrophils # Man Monocytes # (Manual) PT INR APTT POC ABG pH POC ABG pCO2 POC ABG pO2 ABG pO2 ABG HCO3 ABG Base Excess ABG Hemoglobin Oxyhemoglobin Chloride Carbon Dioxide BUN Creatinine Glucose POC Glucose 143 H 180 H Lactic Acid Magnesium AST ALT Total Creatine Kinase C-Reactive Protein Total Protein Albumin Urine WBC (Auto) Vancomycin Trough 4.8 L Salicylates Acetaminophen 10/13/18 10/13/18 10/13/18 02:30 02:30 03:10 WBC 19.8 H RBC 3.12 L Hgb 9.2 L Hct 28.2 L RDW Lymph % (Auto) 8.1 L [place] % (Auto) 8.0 H [place] # 1.6 H Seg Neutrophils % 83.2 H Seg Neuts % (Manual) Lymphocytes % (Manual) Seg Neutrophils # 16.5 H Seg Neutrophils # Man Monocytes # (Manual) PT INR APTT POC ABG pH POC ABG pCO2 POC ABG pO2 ABG pO2 ABG HCO3 32.9 H ABG Base Excess 7.2 H ABG Hemoglobin 10.8 L Oxyhemoglobin Chloride Carbon Dioxide BUN Creatinine 0.3 L Glucose 139 H POC Glucose Lactic Acid Magnesium AST ALT Total Creatine Kinase C-Reactive Protein Total Protein Albumin Urine WBC (Auto) Vancomycin Trough Salicylates Acetaminophen 10/13/18 10/13/18 10/13/18 05:17 11:52 17:18 WBC RBC Hgb Hct RDW Lymph % (Auto) [place] % (Auto) [place] # Seg Neutrophils % Seg Neuts % (Manual) Lymphocytes % (Manual) Seg Neutrophils # Seg Neutrophils # Man Monocytes # (Manual) PT INR APTT POC ABG pH POC ABG pCO2 56.7 H POC ABG pO2 63 L ABG pO2 ABG HCO3 ABG Base Excess ABG Hemoglobin Oxyhemoglobin Chloride Carbon Dioxide BUN Creatinine Glucose POC Glucose 192 H 200 H Lactic Acid Magnesium AST ALT Total Creatine Kinase C-Reactive Protein Total Protein Albumin Urine WBC (Auto) Vancomycin Trough Salicylates Acetaminophen 10/13/18 10/14/18 10/14/18 17:53 00:00 03:55 WBC RBC Hgb Hct RDW Lymph % (Auto) [place] % (Auto) [place] # Seg Neutrophils % Seg Neuts % (Manual) Lymphocytes % (Manual) Seg Neutrophils # Seg Neutrophils # Man Monocytes # (Manual) PT INR APTT POC ABG pH POC ABG pCO2 POC ABG pO2 ABG pO2 ABG HCO3 34.1 H ABG Base Excess 8.4 H ABG Hemoglobin 10.6 L Oxyhemoglobin 94.8 L Chloride Carbon Dioxide BUN Creatinine Glucose POC Glucose 215 H 236 H Lactic Acid Magnesium AST ALT Total Creatine Kinase C-Reactive Protein Total Protein Albumin Urine WBC (Auto) Vancomycin Trough Salicylates Acetaminophen 10/14/18 10/14/18 10/14/18 05:00 08:05 08:05 WBC 16.8 H RBC 3.27 L Hgb 9.8 L Hct 29.7 L RDW 13.1 L Lymph % (Auto) 7.5 L [place] % (Auto) 8.6 H [place] # 1.4 H Seg Neutrophils % 82.4 H Seg Neuts % (Manual) Lymphocytes % (Manual) Seg Neutrophils # 13.8 H Seg Neutrophils # Man Monocytes # (Manual) PT INR APTT POC ABG pH POC ABG pCO2 POC ABG pO2 ABG pO2 ABG HCO3 ABG Base Excess ABG Hemoglobin Oxyhemoglobin Chloride Carbon Dioxide 33 H BUN Creatinine 0.3 L Glucose 140 H POC Glucose 170 H Lactic Acid Magnesium AST ALT Total Creatine Kinase C-Reactive Protein Total Protein Albumin Urine WBC (Auto) Vancomycin Trough Salicylates Acetaminophen 10/14/18 10/14/18 10/14/18 12:04 14:06 18:04 WBC RBC Hgb Hct RDW Lymph % (Auto) [place] % (Auto) [place] # Seg Neutrophils % Seg Neuts % (Manual) Lymphocytes % (Manual) Seg Neutrophils # Seg Neutrophils # Man Monocytes # (Manual) PT INR APTT POC ABG pH 7.330 L POC ABG pCO2 67.6 H POC ABG pO2 75 L ABG pO2 ABG HCO3 ABG Base Excess ABG Hemoglobin Oxyhemoglobin Chloride Carbon Dioxide BUN Creatinine Glucose POC Glucose 202 H 189 H Lactic Acid Magnesium AST ALT Total Creatine Kinase C-Reactive Protein Total Protein Albumin Urine WBC (Auto) Vancomycin Trough Salicylates Acetaminophen 10/14/18 10/15/18 10/15/18 23:16 04:58 05:03 WBC 18.0 H RBC 3.36 L Hgb Hct RDW Lymph % (Auto) 7.5 L [place] % (Auto) [place] # 1.3 H Seg Neutrophils % 83.2 H Seg Neuts % (Manual) Lymphocytes % (Manual) Seg Neutrophils # 15.0 H Seg Neutrophils # Man Monocytes # (Manual) PT INR APTT POC ABG pH POC ABG pCO2 54.9 H POC ABG pO2 72 L ABG pO2 ABG HCO3 ABG Base Excess ABG Hemoglobin Oxyhemoglobin Chloride Carbon Dioxide BUN Creatinine Glucose POC Glucose 187 H Lactic Acid Magnesium AST ALT Total Creatine Kinase C-Reactive Protein Total Protein Albumin Urine WBC (Auto) Vancomycin Trough Salicylates Acetaminophen 10/15/18 10/15/18 05:03 05:54 WBC RBC Hgb Hct RDW Lymph % (Auto) [place] % (Auto) [place] # Seg Neutrophils % Seg Neuts % (Manual) Lymphocytes % (Manual) Seg Neutrophils # Seg Neutrophils # Man Monocytes # (Manual) PT INR APTT POC ABG pH POC ABG pCO2 POC ABG pO2 ABG pO2 ABG HCO3 ABG Base Excess ABG Hemoglobin Oxyhemoglobin Chloride Carbon Dioxide 33 H BUN 19 H Creatinine 0.3 L Glucose 161 H POC Glucose 191 H Lactic Acid Magnesium AST ALT Total Creatine Kinase C-Reactive Protein Total Protein Albumin Urine WBC (Auto) Vancomycin Trough Salicylates Acetaminophen Chest x-ray: image reviewed (LLL infiltrate) Allied health notes reviewed: nursing
[2018-10-15] MEDS: TYLENOL PR PRN (14:57)
[2018-10-16] MEDS: APRESOLINE IV PRN (02:20)
--- NOTE | 2018-10-16 03:35 | XRay Report ---
CHEST 1 VIEW [id number] INDICATION / CLINICAL INFORMATION: follow up respiratory failure. COMPARISON: 10/15/2018 FINDINGS: SUPPORT DEVICES: Stable HEART / MEDIASTINUM: Stable LUNGS / PLEURA: Density in the left base appears more prominent. Left pleural effusion is probably in creased. Pneumonitis could be present in the retrocardiac area. Right lung field remains clear. No pn eumothorax. ADDITIONAL FINDINGS: No significant additional findings. IMPRESSION: Worsening left base Signer Name: Saeed Whiteside MD Signed: 10/16/2018 3:31 AM Workstation Name: [email or web address]
[2018-10-16 05:31] LABS: Hematocrit 32.7 % (30.3-42.9); Hemoglobin 10.7 gm/dl (10.1-14.3); Mean Corpuscular HGB Conc 33 % (30-34); Mean Corpuscular Volume 90 fl (79-97); Platelet Count 215 K/mm3 (140-440); Red Blood Count 3.62 M/mm3 (3.65-5.03); Red Cell Distribution Width 13.5 % (13.2-15.2)
[2018-10-16 05:43] LABS: BUN/Creatinine Ratio 67; Blood Urea Nitrogen 20 mg/dL (7-17); Calcium 10.1 mg/dL (8.4-10.2); Hemolysis Index 93
[2018-10-16] MEDS: MAXIPIME/NS 2 GM/100 ML 2 GM/100 ML BAG IV SCH ×3 (05:44→21:13)
[2018-10-16] MEDS: HumaLOG SUB-Q SCH ×4 (05:45→23:48)
[2018-10-16] MEDS: CARDIZEM PO SCH ×4 (05:45→23:48)
[2018-10-16 06:01] LABS: ABG Base Excess 8.4 mmol/L (-2.0-3.0); ABG HCO3 33.3 mmol/L (20.0-26.0); ABG Methemoglobin 0.6 % (0.0-1.5); ABG PCO2 48.7 mm Hg; ABG PH 7.452 pH Units (7.350-7.450); ABG PO2 66.6 mm Hg (80.0-90.0)
[2018-10-16 07:40] LABS: Band Neutrophils # (Manual) 0.2 K/mm3; Basophils % (Manual) 0 % (0.0-1.8); Eosinophils % (Manual) 0 % (0.0-4.3); Total Cells Counted 100
[2018-10-16 07:41] LABS: Ovalocytes Rare; Platelet Estimate Consistent w Auto
[2018-10-16] MEDS: FLAGYL 500 MG/100 ML 500 MG/100 ML BAG IV SCH ×3 (11:05→23:48)
[2018-10-16] MEDS: PROVIGIL PO SCH (11:06)
[2018-10-16] MEDS: ELIQUIS PO SCH ×2 (11:06→21:12)
[2018-10-16] MEDS: PEPCID PO SCH ×2 (11:06→21:11)
[2018-10-16] MEDS: KEPPRA PO SCH ×2 (11:06→21:11)
[2018-10-16] MEDS: LOPRESSOR PO SCH ×2 (11:06→21:12)
--- NOTE | 2018-10-16 11:56 | Progress Note ---
Assessment and Plan s/p cardiopulmonary arrest-OOH with ROSC Acute hyoxemic respiratory failure on MVS Acute hypercapnic respiratory failure Acute encephalopathy- metabolic Sepsis Aspiration pneumonia LLL Myoclonic jerks, post arrest Atrial fibrillation with RVR (family still discussing goals of care) - continue metoprolol at 50 mg bid - added hydralazine 25 mg po bid - continue Provigil - continue daily SAT and SBT assessments as tolerated - continue prn albuterol nebs - VAP bundle addressed - continue to wean supplemental O2 to keep O2 sats > 90% - follow 2D ECHO - VTE prophylaxis - Stress ulcer prophylaxis - Continue OGT for nutrition and oral medications - Tube feeding for nutritional support - continue accuchecks with glycemic control per SSI for target blood glucose 140-180mg/dL - follow official EEG report - continue empiric antibiotics for aspiration pneumonia (MRSA and GNR coverage re: recent health care facility associations) - resume chronic home medications per attending - continue Midazolam for sedation and seizure management - continue Keppra - neurology evaluation ongoing - continue mobility protocols / off loading for pressure ulcer prevention - Critical care bundles addressed - continue Seizure precautions - fall precautions - neuro-checks per RN - continue other care per attending / other consultants ... care plan discussed with family in room CONDITION: CRITICAL PROGNOSIS: GUARDED TO GRAVE CODE STATUS: FULL CODE The high probability of a clinically significant, sudden or life threatening deterioration of the [Neurology Respiratory, Cardiovascular] system(s) required my full and direct attention, intervention and personal management. The aggregate critical care time was [32] minutes. This time is in addition to time spent performing reported procedures but includes the following: [x] Data Review and interpretation [x] Patient assessment and monitoring of vital signs [x] Documentation [x] Medication orders and management Subjective Date of service: 10/16/18 Principal diagnosis: Cardiac arrest with ROSC; Ac hypoxemic resp failure; Ac. encephalopathy Interval history: Follow up for: OOH cardiac arrest with ROSC; acute hypoxic-hypercapnic respiratory failure; myoclonic jerks; acute metabolic encephalopathy Seen and examined at bedside; 24hour events reviewed; nursing and respiratory care staff consulted; no adverse overnight events reported to me; resting peacefully in bed; again failed SBT very quick; no emesis or overt aspiration; no seizures Objective Vital Signs - 12hr 10/16/18 10/16/18 10/16/18 00:00 00:55 01:00 Temperature Pulse Rate 73 75 77 Pulse Rate [ 73 From Monitor] Respiratory 17 15 Rate Blood Pressure 154/53 175/57 175/57 O2 Sat by Pulse 100 100 100 Oximetry 10/16/18 10/16/18 10/16/18 02:00 02:20 03:00 Temperature Pulse Rate 83 80 90 Pulse Rate [ From Monitor] Respiratory 19 21 Rate Blood Pressure 185/69 181/64 189/63 O2 Sat by Pulse 99 98 Oximetry 10/16/18 10/16/18 10/16/18 04:00 04:01 05:00 Temperature 98.5 F Pulse Rate 75 75 74 Pulse Rate [ 75 From Monitor] Respiratory 14 14 17 Rate Blood Pressure 148/57 164/60 O2 Sat by Pulse 100 100 100 Oximetry 10/16/18 10/16/18 10/16/18 05:03 05:45 06:00 Temperature Pulse Rate 69 80 85 Pulse Rate [ From Monitor] Respiratory 18 Rate Blood Pressure 164/60 164/60 175/71 O2 Sat by Pulse 100 100 Oximetry 10/16/18 10/16/18 10/16/18 07:00 07:10 08:00 Temperature Pulse Rate 74 74 73 Pulse Rate [ 73 From Monitor] Respiratory 16 17 Rate Blood Pressure 151/61 151/61 168/60 O2 Sat by Pulse 100 100 100 Oximetry 10/16/18 10/16/18 10/16/18 08:14 09:00 11:03 Temperature Pulse Rate 75 77 85 Pulse Rate [ From Monitor] Respiratory 13 11 L Rate Blood Pressure 168/60 153/59 159/60 O2 Sat by Pulse 100 100 Oximetry 10/16/18 10/16/18 11:06 11:49 Temperature Pulse Rate 86 59 L Pulse Rate [ From Monitor] Respiratory Rate Blood Pressure 159/60 159/60 O2 Sat by Pulse 100 Oximetry Constitutional: no acute distress, other (+ myoclonic jerks during sedation vacations) Eyes: non-icteric ENT: oropharynx moist, other (ETT approx 23cm SUELLEN) Neck: supple, no lymphadenopathy, no JVD Effort: mildly labored Ascultation: Bilateral: diminished breath sounds, rhonchi Percussion: Bilateral: not dull Cardiovascular: regular rate and rhythm, other (occasional extrasystolee's) Gastrointestinal: normoactive bowel sounds, soft, non-tender, non-distended Integumentary: normal Extremities: no cyanosis, no edema, pink and warm, pulses normal Neurologic: unable to assess, other (posturing to painful stimuli, Pupils are minimally reactive) Psychiatric: other (unable to assess) CBC and BMP: 10/17/18 04:32 10/17/18 04:32 ABG, PT/INR, D-dimer: ABG POC ABG pH 7.421 (7.35-7.45) 10/15/18 04:58 ABG pH 7.452 pH Units (7.350-7.450) H 10/16/18 05:05 POC ABG pCO2 54.9 (35-45) H 10/15/18 04:58 ABG pCO2 48.7 mm Hg 10/16/18 05:05 POC ABG pO2 72 (80-105) L 10/15/18 04:58 ABG pO2 66.6 mm Hg (80.0-90.0) L 10/16/18 05:05 POC ABG HCO3 35.7 (22-26 mml/L) 10/15/18 04:58 POC ABG Total CO2 37 (23-27mmol/L) 10/15/18 04:58 POC ABG O2 Sat 94 10/15/18 04:58 ABG O2 Saturation 94.0 % (95.0-99.0) L 10/16/18 05:05 PT/INR, D-dimer PT 16.6 Sec. (12.2-14.9) H 10/09/18 10:50 INR 1.38 (0.87-1.13) H 10/09/18 10:50 Abnormal lab findings: Abnormal Labs 10/09/18 10/09/18 10/09/18 10:14 10:50 10:50 WBC RBC Hgb Hct RDW Lymph % (Auto) [place] % (Auto) [place] # Seg Neutrophils % Seg Neuts % (Manual) Lymphocytes % (Manual) Seg Neutrophils # Seg Neutrophils # Man Lymphocytes # (Manual) Monocytes # (Manual) PT 16.6 H INR 1.38 H APTT 39.4 H POC ABG pH ABG pH POC ABG pCO2 POC ABG pO2 ABG pO2 ABG HCO3 ABG O2 Saturation ABG Base Excess ABG Hemoglobin Oxyhemoglobin Sodium Chloride 90.3 L Carbon Dioxide BUN 21 H Creatinine Glucose 315 H POC Glucose 344 H Lactic Acid Magnesium AST 51 H ALT 67 H Total Creatine Kinase C-Reactive Protein Total Protein 5.3 L Albumin 3.0 L Urine WBC (Auto) Vancomycin Trough Salicylates Acetaminophen 10/09/18 10/09/18 10/09/18 10:50 10:50 10:50 WBC RBC Hgb Hct RDW Lymph % (Auto) [place] % (Auto) [place] # Seg Neutrophils % Seg Neuts % (Manual) Lymphocytes % (Manual) Seg Neutrophils # Seg Neutrophils # Man Lymphocytes # (Manual) Monocytes # (Manual) PT INR APTT POC ABG pH ABG pH POC ABG pCO2 POC ABG pO2 ABG pO2 ABG HCO3 ABG O2 Saturation ABG Base Excess ABG Hemoglobin Oxyhemoglobin Sodium Chloride Carbon Dioxide BUN Creatinine Glucose POC Glucose Lactic Acid Magnesium 3.70 H AST ALT Total Creatine Kinase 171 H C-Reactive Protein Total Protein Albumin Urine WBC (Auto) Vancomycin Trough Salicylates < 0.3 L Acetaminophen < 5.0 L 10/09/18 10/09/18 10/09/18 10:50 10:55 11:38 WBC 31.3 H RBC Hgb Hct RDW 13.0 L Lymph % (Auto) [place] % (Auto) [place] # Seg Neutrophils % Seg Neuts % (Manual) 91.5 H Lymphocytes % (Manual) 4.5 L Seg Neutrophils # Seg Neutrophils # Man 28.6 H Lymphocytes # (Manual) Monocytes # (Manual) 1.1 H PT INR APTT POC ABG pH 7.243 L ABG pH POC ABG pCO2 68.0 H POC ABG pO2 389 H ABG pO2 ABG HCO3 ABG O2 Saturation ABG Base Excess ABG Hemoglobin Oxyhemoglobin Sodium Chloride Carbon Dioxide BUN Creatinine Glucose POC Glucose Lactic Acid 9.30 H* Magnesium AST ALT Total Creatine Kinase C-Reactive Protein Total Protein Albumin Urine WBC (Auto) Vancomycin Trough Salicylates Acetaminophen 10/09/18 10/09/18 10/09/18 12:12 15:28 16:27 WBC RBC Hgb Hct RDW Lymph % (Auto) [place] % (Auto) [place] # Seg Neutrophils % Seg Neuts % (Manual) Lymphocytes % (Manual) Seg Neutrophils # Seg Neutrophils # Man Lymphocytes # (Manual) Monocytes # (Manual) PT INR APTT POC ABG pH 7.598 H ABG pH POC ABG pCO2 POC ABG pO2 61 L ABG pO2 ABG HCO3 ABG O2 Saturation ABG Base Excess ABG Hemoglobin Oxyhemoglobin Sodium Chloride Carbon Dioxide BUN Creatinine Glucose POC Glucose 173 H Lactic Acid Magnesium AST ALT Total Creatine Kinase C-Reactive Protein Total Protein Albumin Urine WBC (Auto) 8.0 H Vancomycin Trough Salicylates Acetaminophen 10/09/18 10/09/18 10/09/18 16:44 16:44 18:38 WBC RBC Hgb Hct RDW Lymph % (Auto) [place] % (Auto) [place] # Seg Neutrophils % Seg Neuts % (Manual) Lymphocytes % (Manual) Seg Neutrophils # Seg Neutrophils # Man Lymphocytes # (Manual) Monocytes # (Manual) PT INR APTT POC ABG pH ABG pH POC ABG pCO2 POC ABG pO2 ABG pO2 ABG HCO3 ABG O2 Saturation ABG Base Excess ABG Hemoglobin Oxyhemoglobin Sodium Chloride Carbon Dioxide BUN Creatinine Glucose POC Glucose 177 H Lactic Acid 3.80 H* 3.70 H* Magnesium AST ALT Total Creatine Kinase C-Reactive Protein Total Protein Albumin Urine WBC (Auto) Vancomycin Trough Salicylates Acetaminophen 10/10/18 10/10/18 10/10/18 00:33 04:24 05:32 WBC RBC Hgb Hct RDW Lymph % (Auto) [place] % (Auto) [place] # Seg Neutrophils % Seg Neuts % (Manual) Lymphocytes % (Manual) Seg Neutrophils # Seg Neutrophils # Man Lymphocytes # (Manual) Monocytes # (Manual) PT INR APTT POC ABG pH 7.602 H ABG pH POC ABG pCO2 POC ABG pO2 170 H ABG pO2 ABG HCO3 ABG O2 Saturation ABG Base Excess ABG Hemoglobin Oxyhemoglobin Sodium Chloride Carbon Dioxide BUN Creatinine Glucose POC Glucose 177 H 190 H Lactic Acid Magnesium AST ALT Total Creatine Kinase C-Reactive Protein Total Protein Albumin Urine WBC (Auto) Vancomycin Trough Salicylates Acetaminophen 10/10/18 10/10/18 10/10/18 07:54 07:54 12:18 WBC 38.6 H RBC Hgb Hct RDW Lymph % (Auto) [place] % (Auto) [place] # Seg Neutrophils % Seg Neuts % (Manual) Lymphocytes % (Manual) Seg Neutrophils # Seg Neutrophils # Man Lymphocytes # (Manual) Monocytes # (Manual) PT INR APTT POC ABG pH ABG pH POC ABG pCO2 POC ABG pO2 ABG pO2 ABG HCO3 ABG O2 Saturation ABG Base Excess ABG Hemoglobin Oxyhemoglobin Sodium Chloride Carbon Dioxide BUN 31 H Creatinine Glucose 124 H POC Glucose 151 H Lactic Acid Magnesium AST ALT Total Creatine Kinase C-Reactive Protein Total Protein Albumin Urine WBC (Auto) Vancomycin Trough Salicylates Acetaminophen 10/10/18 10/10/18 10/11/18 18:17 23:09 03:40 WBC RBC Hgb Hct RDW Lymph % (Auto) [place] % (Auto) [place] # Seg Neutrophils % Seg Neuts % (Manual) Lymphocytes % (Manual) Seg Neutrophils # Seg Neutrophils # Man Lymphocytes # (Manual) Monocytes # (Manual) PT INR APTT POC ABG pH ABG pH POC ABG pCO2 POC ABG pO2 ABG pO2 91.1 H ABG HCO3 28.8 H ABG O2 Saturation ABG Base Excess ABG Hemoglobin 7.6 L Oxyhemoglobin Sodium Chloride Carbon Dioxide BUN Creatinine Glucose POC Glucose 132 H 124 H Lactic Acid Magnesium AST ALT Total Creatine Kinase C-Reactive Protein Total Protein Albumin Urine WBC (Auto) Vancomycin Trough Salicylates Acetaminophen 10/11/18 10/11/18 10/11/18 04:45 04:45 06:50 WBC 25.8 H RBC 3.41 L Hgb Hct RDW Lymph % (Auto) [place] % (Auto) [place] # Seg Neutrophils % Seg Neuts % (Manual) 83.0 H Lymphocytes % (Manual) Seg Neutrophils # Seg Neutrophils # Man 21.4 H Lymphocytes # (Manual) Monocytes # (Manual) PT INR APTT POC ABG pH ABG pH POC ABG pCO2 POC ABG pO2 ABG pO2 ABG HCO3 ABG O2 Saturation ABG Base Excess ABG Hemoglobin Oxyhemoglobin Sodium Chloride Carbon Dioxide BUN 26 H Creatinine 0.6 L Glucose 134 H POC Glucose 134 H Lactic Acid Magnesium AST ALT Total Creatine Kinase C-Reactive Protein Total Protein Albumin Urine WBC (Auto) Vancomycin Trough Salicylates Acetaminophen 10/11/18 10/11/18 10/12/18 13:10 18:08 00:25 WBC RBC Hgb Hct RDW Lymph % (Auto) [place] % (Auto) [place] # Seg Neutrophils % Seg Neuts % (Manual) Lymphocytes % (Manual) Seg Neutrophils # Seg Neutrophils # Man Lymphocytes # (Manual) Monocytes # (Manual) PT INR APTT POC ABG pH ABG pH POC ABG pCO2 POC ABG pO2 ABG pO2 ABG HCO3 ABG O2 Saturation ABG Base Excess ABG Hemoglobin Oxyhemoglobin Sodium Chloride Carbon Dioxide BUN Creatinine Glucose POC Glucose 160 H 166 H 136 H Lactic Acid Magnesium AST ALT Total Creatine Kinase C-Reactive Protein Total Protein Albumin Urine WBC (Auto) Vancomycin Trough Salicylates Acetaminophen 10/12/18 10/12/18 10/12/18 03:56 04:17 04:17 WBC 19.2 H RBC 3.04 L Hgb 8.9 L Hct 27.2 L RDW Lymph % (Auto) 8.5 L [place] % (Auto) [place] # 1.4 H Seg Neutrophils % 84.2 H Seg Neuts % (Manual) Lymphocytes % (Manual) Seg Neutrophils # 16.2 H Seg Neutrophils # Man Lymphocytes # (Manual) Monocytes # (Manual) PT INR APTT POC ABG pH ABG pH POC ABG pCO2 POC ABG pO2 ABG pO2 77.9 L ABG HCO3 29.4 H ABG O2 Saturation ABG Base Excess 4.4 H ABG Hemoglobin 10.2 L Oxyhemoglobin 94.7 L Sodium Chloride Carbon Dioxide BUN Creatinine 0.5 L Glucose 139 H POC Glucose Lactic Acid Magnesium AST ALT Total Creatine Kinase C-Reactive Protein Total Protein Albumin Urine WBC (Auto) Vancomycin Trough Salicylates Acetaminophen 10/12/18 10/12/18 10/12/18 05:51 11:46 13:03 WBC RBC Hgb Hct RDW Lymph % (Auto) [place] % (Auto) [place] # Seg Neutrophils % Seg Neuts % (Manual) Lymphocytes % (Manual) Seg Neutrophils # Seg Neutrophils # Man Lymphocytes # (Manual) Monocytes # (Manual) PT INR APTT POC ABG pH ABG pH POC ABG pCO2 POC ABG pO2 ABG pO2 ABG HCO3 ABG O2 Saturation ABG Base Excess ABG Hemoglobin Oxyhemoglobin Sodium Chloride Carbon Dioxide BUN Creatinine Glucose POC Glucose 163 H 162 H Lactic Acid Magnesium AST ALT Total Creatine Kinase C-Reactive Protein 2.70 H Total Protein Albumin Urine WBC (Auto) Vancomycin Trough Salicylates Acetaminophen 10/12/18 10/12/18 10/12/18 17:44 22:33 23:54 WBC RBC Hgb Hct RDW Lymph % (Auto) [place] % (Auto) [place] # Seg Neutrophils % Seg Neuts % (Manual) Lymphocytes % (Manual) Seg Neutrophils # Seg Neutrophils # Man Lymphocytes # (Manual) Monocytes # (Manual) PT INR APTT POC ABG pH ABG pH POC ABG pCO2 POC ABG pO2 ABG pO2 ABG HCO3 ABG O2 Saturation ABG Base Excess ABG Hemoglobin Oxyhemoglobin Sodium Chloride Carbon Dioxide BUN Creatinine Glucose POC Glucose 143 H 180 H Lactic Acid Magnesium AST ALT Total Creatine Kinase C-Reactive Protein Total Protein Albumin Urine WBC (Auto) Vancomycin Trough 4.8 L Salicylates Acetaminophen 10/13/18 10/13/18 10/13/18 02:30 02:30 03:10 WBC 19.8 H RBC 3.12 L Hgb 9.2 L Hct 28.2 L RDW Lymph % (Auto) 8.1 L [place] % (Auto) 8.0 H [place] # 1.6 H Seg Neutrophils % 83.2 H Seg Neuts % (Manual) Lymphocytes % (Manual) Seg Neutrophils # 16.5 H Seg Neutrophils # Man Lymphocytes # (Manual) Monocytes # (Manual) PT INR APTT POC ABG pH ABG pH POC ABG pCO2 POC ABG pO2 ABG pO2 ABG HCO3 32.9 H ABG O2 Saturation ABG Base Excess 7.2 H ABG Hemoglobin 10.8 L Oxyhemoglobin Sodium Chloride Carbon Dioxide BUN Creatinine 0.3 L Glucose 139 H POC Glucose Lactic Acid Magnesium AST ALT Total Creatine Kinase C-Reactive Protein Total Protein Albumin Urine WBC (Auto) Vancomycin Trough Salicylates Acetaminophen 10/13/18 10/13/18 10/13/18 05:17 11:52 17:18 WBC RBC Hgb Hct RDW Lymph % (Auto) [place] % (Auto) [place] # Seg Neutrophils % Seg Neuts % (Manual) Lymphocytes % (Manual) Seg Neutrophils # Seg Neutrophils # Man Lymphocytes # (Manual) Monocytes # (Manual) PT INR APTT POC ABG pH ABG pH POC ABG pCO2 56.7 H POC ABG pO2 63 L ABG pO2 ABG HCO3 ABG O2 Saturation ABG Base Excess ABG Hemoglobin Oxyhemoglobin Sodium Chloride Carbon Dioxide BUN Creatinine Glucose POC Glucose 192 H 200 H Lactic Acid Magnesium AST ALT Total Creatine Kinase C-Reactive Protein Total Protein Albumin Urine WBC (Auto) Vancomycin Trough Salicylates Acetaminophen 10/13/18 10/14/18 10/14/18 17:53 00:00 03:55 WBC RBC Hgb Hct RDW Lymph % (Auto) [place] % (Auto) [place] # Seg Neutrophils % Seg Neuts % (Manual) Lymphocytes % (Manual) Seg Neutrophils # Seg Neutrophils # Man Lymphocytes # (Manual) Monocytes # (Manual) PT INR APTT POC ABG pH ABG pH POC ABG pCO2 POC ABG pO2 ABG pO2 ABG HCO3 34.1 H ABG O2 Saturation ABG Base Excess 8.4 H ABG Hemoglobin 10.6 L Oxyhemoglobin 94.8 L Sodium Chloride Carbon Dioxide BUN Creatinine Glucose POC Glucose 215 H 236 H Lactic Acid Magnesium AST ALT Total Creatine Kinase C-Reactive Protein Total Protein Albumin Urine WBC (Auto) Vancomycin Trough Salicylates Acetaminophen 10/14/18 10/14/18 10/14/18 05:00 08:05 08:05 WBC 16.8 H RBC 3.27 L Hgb 9.8 L Hct 29.7 L RDW 13.1 L Lymph % (Auto) 7.5 L [place] % (Auto) 8.6 H [place] # 1.4 H Seg Neutrophils % 82.4 H Seg Neuts % (Manual) Lymphocytes % (Manual) Seg Neutrophils # 13.8 H Seg Neutrophils # Man Lymphocytes # (Manual) Monocytes # (Manual) PT INR APTT POC ABG pH ABG pH POC ABG pCO2 POC ABG pO2 ABG pO2 ABG HCO3 ABG O2 Saturation ABG Base Excess ABG Hemoglobin Oxyhemoglobin Sodium Chloride Carbon Dioxide 33 H BUN Creatinine 0.3 L Glucose 140 H POC Glucose 170 H Lactic Acid Magnesium AST ALT Total Creatine Kinase C-Reactive Protein Total Protein Albumin Urine WBC (Auto) Vancomycin Trough Salicylates Acetaminophen 10/14/18 10/14/18 10/14/18 12:04 14:06 18:04 WBC RBC Hgb Hct RDW Lymph % (Auto) [place] % (Auto) [place] # Seg Neutrophils % Seg Neuts % (Manual) Lymphocytes % (Manual) Seg Neutrophils # Seg Neutrophils # Man Lymphocytes # (Manual) Monocytes # (Manual) PT INR APTT POC ABG pH 7.330 L ABG pH POC ABG pCO2 67.6 H POC ABG pO2 75 L ABG pO2 ABG HCO3 ABG O2 Saturation ABG Base Excess ABG Hemoglobin Oxyhemoglobin Sodium Chloride Carbon Dioxide BUN Creatinine Glucose POC Glucose 202 H 189 H Lactic Acid Magnesium AST ALT Total Creatine Kinase C-Reactive Protein Total Protein Albumin Urine WBC (Auto) Vancomycin Trough Salicylates Acetaminophen 10/14/18 10/15/18 10/15/18 23:16 04:58 05:03 WBC 18.0 H RBC 3.36 L Hgb Hct RDW Lymph % (Auto) 7.5 L [place] % (Auto) [place] # 1.3 H Seg Neutrophils % 83.2 H Seg Neuts % (Manual) Lymphocytes % (Manual) Seg Neutrophils # 15.0 H Seg Neutrophils # Man Lymphocytes # (Manual) Monocytes # (Manual) PT INR APTT POC ABG pH ABG pH POC ABG pCO2 54.9 H POC ABG pO2 72 L ABG pO2 ABG HCO3 ABG O2 Saturation ABG Base Excess ABG Hemoglobin Oxyhemoglobin Sodium Chloride Carbon Dioxide BUN Creatinine Glucose POC Glucose 187 H Lactic Acid Magnesium AST ALT Total Creatine Kinase C-Reactive Protein Total Protein Albumin Urine WBC (Auto) Vancomycin Trough Salicylates Acetaminophen 10/15/18 10/15/18 10/15/18 05:03 05:54 11:53 WBC RBC Hgb Hct RDW Lymph % (Auto) [place] % (Auto) [place] # Seg Neutrophils % Seg Neuts % (Manual) Lymphocytes % (Manual) Seg Neutrophils # Seg Neutrophils # Man Lymphocytes # (Manual) Monocytes # (Manual) PT INR APTT POC ABG pH ABG pH POC ABG pCO2 POC ABG pO2 ABG pO2 ABG HCO3 ABG O2 Saturation ABG Base Excess ABG Hemoglobin Oxyhemoglobin Sodium Chloride Carbon Dioxide 33 H BUN 19 H Creatinine 0.3 L Glucose 161 H POC Glucose 191 H 188 H Lactic Acid Magnesium AST ALT Total Creatine Kinase C-Reactive Protein Total Protein Albumin Urine WBC (Auto) Vancomycin Trough Salicylates Acetaminophen 10/15/18 10/15/18 10/16/18 17:30 23:15 05:05 WBC RBC Hgb Hct RDW Lymph % (Auto) [place] % (Auto) [place] # Seg Neutrophils % Seg Neuts % (Manual) Lymphocytes % (Manual) Seg Neutrophils # Seg Neutrophils # Man Lymphocytes # (Manual) Monocytes # (Manual) PT INR APTT POC ABG pH ABG pH 7.452 H POC ABG pCO2 POC ABG pO2 ABG pO2 66.6 L ABG HCO3 33.3 H ABG O2 Saturation 94.0 L ABG Base Excess 8.4 H ABG Hemoglobin 8.7 L Oxyhemoglobin 92.1 L Sodium Chloride Carbon Dioxide BUN Creatinine Glucose POC Glucose 178 H 177 H Lactic Acid Magnesium AST ALT Total Creatine Kinase C-Reactive Protein Total Protein Albumin Urine WBC (Auto) Vancomycin Trough Salicylates Acetaminophen 10/16/18 10/16/18 10/16/18 05:12 05:12 05:49 WBC 21.9 H RBC 3.62 L Hgb Hct RDW Lymph % (Auto) [place] % (Auto) [place] # Seg Neutrophils % Seg Neuts % (Manual) 93.0 H Lymphocytes % (Manual) 1.0 L Seg Neutrophils # Seg Neutrophils # Man 20.4 H Lymphocytes # (Manual) 0.2 L Monocytes # (Manual) 0.9 H PT INR APTT POC ABG pH ABG pH POC ABG pCO2 POC ABG pO2 ABG pO2 ABG HCO3 ABG O2 Saturation ABG Base Excess ABG Hemoglobin Oxyhemoglobin Sodium 136 L Chloride 96.3 L Carbon Dioxide 34 H BUN 20 H Creatinine 0.3 L Glucose 183 H POC Glucose 187 H Lactic Acid Magnesium AST ALT Total Creatine Kinase C-Reactive Protein Total Protein Albumin Urine WBC (Auto) Vancomycin Trough Salicylates Acetaminophen Chest x-ray: image reviewed Allied health notes reviewed: nursing
[2018-10-16] MEDS: QUESTRAN PO SCH ×2 (14:25→21:15)
[2018-10-16] MEDS: APRESOLINE PO SCH ×2 (14:27→21:11)
--- NOTE | 2018-10-16 14:55 | Progress Note ---
Assessment and Plan Cultures: 10/09 blood cultures: NGTD 10/09 urine cultures: Negative 10/09 sputum cultures: Negative A/P: 68 yo F PMHx HTN, GERD, SVT/Atrial Flutter on AC admitted with cardiac arrest, now with aspiration pneumonia 1. Septic shock secondary to aspiration pneumonia - Present with tachycardia and leukocytosis. While antibiotics are unlikely to improve her outcome given the anoxic brain injury, can continue them for now. CXR with worsening, though may just be evolution of disease. Ordered MRSA nares. 2. Cardiogenic shock - s/p resuscitation 3. Anoxic brain injury - poor prognosis for meaningful neurological recovery. 4. HTN 5. GERD 6. Fevers - Likely some component of central fevers given severe anoxic brain injury. Recs: - continue metronidazole 500mg TID - continue cefepime 2g q8h - expected duration: 8 days. Stop date: 10/18 - Prognosis: grim Thank you for the consult, we will continue to follow. Mumtaz Webster MD [facility] ([facility]) M: [phone] O: [phone] F: [phone] Subjective Date of service: 10/16/18 Principal diagnosis: Cardiac arrest with ROSC; Ac hypoxemic resp failure; Ac. encephalopathy Interval history: Remains non-responsive. Objective - Exam Narrative Exam: Constitutional: intubated, non-responsive. Head, Ears, Nose: Normocephalic, atraumatic. External ears, nose normal Eyes: Conjunctivae/corneas clear. No icterus. No ptosis. Neck: Supple, no meningeal signs Oral: dentition fair, no thrush Cardiovascular: S1, S2 normal. Respiratory: Good air entry, clear to auscultation bilaterally GI: Soft, non-tender; bowel sounds normal. No peritoneal signs. Musculoskeletal: No pedal edema, no cyanosis. Skin: No rash or abscess Hem/Lymphatic: No palpable cervical or supraclavicular nodes. No lymphangitis Neurological: intubated, non-responsive - Constitutional Vitals: Vital Signs Temp Pulse Resp BP Pulse Ox 98 F 72 11 L 142/57 100 10/16/18 12:00 10/16/18 14:27 10/16/18 09:00 10/16/18 14:27 10/16/18 11:49 Temperature -Last 24 Hours Temperature 98 F Temperature 98.2 F Temperature 98.5 F Temperature 98.6 F Temperature 98.8 F Temperature 97.6 F - Labs CBC & Chem 7: 10/16/18 05:12 10/16/18 05:12 Labs: Abnormal lab results 10/15/18 10/15/18 10/16/18 Range/Units 17:30 23:15 05:05 WBC (4.5-11.0) K/mm3 RBC (3.65-5.03) M/mm3 Seg Neuts % (Manual) (40.0-70.0) % Lymphocytes % (Manual) (13.4-35.0) % Seg Neutrophils # Man (1.8-7.7) K/mm3 Lymphocytes # (Manual) (1.2-5.4) K/mm3 Monocytes # (Manual) (0.0-0.8) K/mm3 ABG pH 7.452 H (7.350-7.450) pH Units ABG pO2 66.6 L (80.0-90.0) mm Hg ABG HCO3 33.3 H (20.0-26.0) mmol/L ABG O2 Saturation 94.0 L (95.0-99.0) % ABG Base Excess 8.4 H (-2.0-3.0) mmol/L ABG Hemoglobin 8.7 L (12.0-16.0) gm/dl Oxyhemoglobin 92.1 L (95.0-99.0) % Sodium (137-145) mmol/L Chloride (98-107) mmol/L Carbon Dioxide (22-30) mmol/L BUN (7-17) mg/dL Creatinine (0.7-1.2) mg/dL Glucose (65-100) mg/dL POC Glucose 178 H 177 H (70-105) 10/16/18 10/16/18 10/16/18 Range/Units 05:12 05:12 05:49 WBC 21.9 H (4.5-11.0) K/mm3 RBC 3.62 L (3.65-5.03) M/mm3 Seg Neuts % (Manual) 93.0 H (40.0-70.0) % Lymphocytes % (Manual) 1.0 L (13.4-35.0) % Seg Neutrophils # Man 20.4 H (1.8-7.7) K/mm3 Lymphocytes # (Manual) 0.2 L (1.2-5.4) K/mm3 Monocytes # (Manual) 0.9 H (0.0-0.8) K/mm3 ABG pH (7.350-7.450) pH Units ABG pO2 (80.0-90.0) mm Hg ABG HCO3 (20.0-26.0) mmol/L ABG O2 Saturation (95.0-99.0) % ABG Base Excess (-2.0-3.0) mmol/L ABG Hemoglobin (12.0-16.0) gm/dl Oxyhemoglobin (95.0-99.0) % Sodium 136 L (137-145) mmol/L Chloride 96.3 L (98-107) mmol/L Carbon Dioxide 34 H (22-30) mmol/L BUN 20 H (7-17) mg/dL Creatinine 0.3 L (0.7-1.2) mg/dL Glucose 183 H (65-100) mg/dL POC Glucose 187 H (70-105) 10/16/18 Range/Units 11:25 WBC (4.5-11.0) K/mm3 RBC (3.65-5.03) M/mm3 Seg Neuts % (Manual) (40.0-70.0) % Lymphocytes % (Manual) (13.4-35.0) % Seg Neutrophils # Man (1.8-7.7) K/mm3 Lymphocytes # (Manual) (1.2-5.4) K/mm3 Monocytes # (Manual) (0.0-0.8) K/mm3 ABG pH (7.350-7.450) pH Units ABG pO2 (80.0-90.0) mm Hg ABG HCO3 (20.0-26.0) mmol/L ABG O2 Saturation (95.0-99.0) % ABG Base Excess (-2.0-3.0) mmol/L ABG Hemoglobin (12.0-16.0) gm/dl Oxyhemoglobin (95.0-99.0) % Sodium (137-145) mmol/L Chloride (98-107) mmol/L Carbon Dioxide (22-30) mmol/L BUN (7-17) mg/dL Creatinine (0.7-1.2) mg/dL Glucose (65-100) mg/dL POC Glucose 200 H (70-105)
--- NOTE | 2018-10-16 17:51 | Progress Note ---
Assessment and Plan Assessment and plan: Sepsis. Patient off pressors. Continue antibiotics per infectious disease. Left lower lobe pneumonia. Continue antibiotics per ID recommendation Anoxic brain injury. EEG per Neurology shows no epileptiform abnormalities, focal or lateralizing features, or significant interhemispheric findings.. MRI findings consistent with anoxic brain injury. Keppra started per neurology twice a day for seizure prophylaxis. Cont. Provigil Nurse reports aisha would like a second opinion from Neurology--consulkt Dr. Sr for further eval Cardiopulmonary arrest. Echo revealed EF 60-65%, mild LVH, impaired relaxation, mild TR, mild pulm HTN RVSP 48mmHg, small pericardial effusion, left pleural effusion. Continue supportive care. S/P ACLS protocol initiation with return of cardiac rhythm Acute hypoxemic respiratory failure. Continue mechanical ventilation per pulmonary. Cont. SBT. Patient will need consideration for trach and PEG discussions on Tuesday. Paroxysmal atrial fibrillation. Per cardiology recommendations. Hypertension. Continue antihypertensive medications as needed. Elevated LFTs. Etiology likely secondary to sepsis/shock/ischemic hepatitis. POLLY. Per pulmonary. Overall poor prognosis with minimal chance for neurological recovery The high probability of a clinically significant, sudden or life threatening deterioration of the [neurological and respiratory] system(s) required my full and direct attention, intervention and personal management. The aggregate critical care time was [31] minutes. This time is in addition to time spent performing reported procedures but includes the following: [x] Data Review and interpretation [x] Patient assessment and monitoring of vital signs [x] Documentation [x] Medication orders and management History Interval history: Patient remains on mechanical ventilation. Nurse reports aisha would like a second opinion from Neurology Hospitalist Physical - Constitutional Vitals: Temp Pulse Resp BP Pulse Ox 98 F 81 16 155/63 100 10/16/18 12:00 10/16/18 17:03 10/16/18 16:00 10/16/18 17:03 10/16/18 16:00 General appearance: Present: no acute distress, other (orally intubated) - EENT Eyes: Present: PERRL, EOM intact ENT: hearing intact, clear oral mucosa, dentition normal - Neck Neck: Present: supple, normal ROM - Respiratory Respiratory effort: normal Respiratory: bilateral: CTA - Cardiovascular Rhythm: regular Heart Sounds: Present: S1 & S2. Absent: gallop, rub - Extremities Extremities: no ischemia, No edema, Full ROM - Abdominal General gastrointestinal: soft, non-tender, non-distended, normal bowel sounds - Integumentary Integumentary: Present: clear, warm, dry - Neurologic Neurologic: other (unresposive) Results - Labs CBC & Chem 7: 10/16/18 05:12 10/16/18 05:12 Labs: Laboratory Last Values WBC 21.9 K/mm3 (4.5-11.0) H 10/16/18 05:12 RBC 3.62 M/mm3 (3.65-5.03) L 10/16/18 05:12 Hgb 10.7 gm/dl (10.1-14.3) 10/16/18 05:12 Hct 32.7 % (30.3-42.9) 10/16/18 05:12 MCV 90 fl (79-97) 10/16/18 05:12 MCH 30 pg (28-32) 10/16/18 05:12 MCHC 33 % (30-34) 10/16/18 05:12 RDW 13.5 % (13.2-15.2) 10/16/18 05:12 Plt Count 215 K/mm3 (140-440) 10/16/18 05:12 Lymph % (Auto) 7.5 % (13.4-35.0) L 10/15/18 05:03 [place] % (Auto) 7.3 % (0.0-7.3) 10/15/18 05:03 Eos % (Auto) 1.7 % (0.0-4.3) 10/15/18 05:03 Baso % (Auto) 0.3 % (0.0-1.8) 10/15/18 05:03 Lymph # 1.3 K/mm3 (1.2-5.4) 10/15/18 05:03 [place] # 1.3 K/mm3 (0.0-0.8) H 10/15/18 05:03 Eos # 0.3 K/mm3 (0.0-0.4) 10/15/18 05:03 Baso # 0.1 K/mm3 (0.0-0.1) 10/15/18 05:03 Add Manual Diff Complete 10/16/18 05:12 Total Counted 100 10/16/18 05:12 Seg Neutrophils % 83.2 % (40.0-70.0) H 10/15/18 05:03 Seg Neuts % (Manual) 93.0 % (40.0-70.0) H 10/16/18 05:12 1.0 % 10/16/18 05:12 1.0 % (13.4-35.0) L 10/16/18 05:12 Reactive Lymphs % (Man) 0 % 10/16/18 05:12 4.0 % (0.0-7.3) 10/16/18 05:12 0 % (0.0-4.3) 10/16/18 05:12 0 % (0.0-1.8) 10/16/18 05:12 1.0 % 10/16/18 05:12 0 % 10/16/18 05:12 0 % 10/16/18 05:12 0 % 10/16/18 05:12 Nucleated RBC % Not Reportable 10/16/18 05:12 Seg Neutrophils # 15.0 K/mm3 (1.8-7.7) H 10/15/18 05:03 Seg Neutrophils # Man 20.4 K/mm3 (1.8-7.7) H 10/16/18 05:12 Band Neutrophils # 0.2 K/mm3 10/16/18 05:12 0.2 K/mm3 (1.2-5.4) L 10/16/18 05:12 Abs React Lymphs (Man) 0.0 K/mm3 10/16/18 05:12 0.9 K/mm3 (0.0-0.8) H 10/16/18 05:12 0.0 K/mm3 (0.0-0.4) 10/16/18 05:12 0.0 K/mm3 (0.0-0.1) 10/16/18 05:12 0.2 K/mm3 10/16/18 05:12 0.0 K/mm3 10/16/18 05:12 0.0 K/mm3 10/16/18 05:12 Blast Cells # 0.0 K/mm3 10/16/18 05:12 WBC Morphology Not Reportable 10/16/18 05:12 Hypersegmented Neuts Not Reportable 10/16/18 05:12 Hyposegmented Neuts Not Reportable 10/16/18 05:12 Hypogranular Neuts Not Reportable 10/16/18 05:12 Not Reportable 10/16/18 05:12 Not Reportable 10/16/18 05:12 Not Reportable 10/16/18 05:12 Not Reportable 10/16/18 05:12 Not Reportable 10/16/18 05:12 Not Reportable 10/16/18 05:12 Consistent w auto 10/16/18 05:12 Not Reportable 10/16/18 05:12 Plt Clumps, EDTA Not Reportable 10/16/18 05:12 Not Reportable 10/16/18 05:12 Not Reportable 10/16/18 05:12 Not Reportable 10/16/18 05:12 Plt Morphology Comment Not Reportable 10/16/18 05:12 RBC Morphology Not Reportable 10/16/18 05:12 Dimorphic RBCs Not Reportable 10/16/18 05:12 Not Reportable 10/16/18 05:12 Not Reportable 10/16/18 05:12 Not Reportable 10/16/18 05:12 Not Reportable 10/16/18 05:12 Not Reportable 10/16/18 05:12 Not Reportable 10/16/18 05:12 Not Reportable 10/16/18 05:12 Not Reportable 10/16/18 05:12 Not Reportable 10/16/18 05:12 Not Reportable 10/16/18 05:12 Not Reportable 10/16/18 05:12 Rare 10/16/18 05:12 Not Reportable 10/16/18 05:12 Not Reportable 10/16/18 05:12 Not Reportable 10/16/18 05:12 Not Reportable 10/16/18 05:12 Not Reportable 10/16/18 05:12 Not Reportable 10/16/18 05:12 Not Reportable 10/16/18 05:12 Acanthocytes (Spur) Not Reportable 10/16/18 05:12 Rouleaux Not Reportable 10/16/18 05:12 Not Reportable 10/16/18 05:12 Not Reportable 10/16/18 05:12 Not Reportable 10/16/18 05:12 Not Reportable 10/16/18 05:12 Hem Pathologist Commnt No 10/16/18 05:12 PT 16.6 Sec. (12.2-14.9) H 10/09/18 10:50 INR 1.38 (0.87-1.13) H 10/09/18 10:50 APTT 39.4 Sec. (24.2-36.6) H 10/09/18 10:50 POC ABG pH 7.421 (7.35-7.45) 10/15/18 04:58 ABG pH 7.452 pH Units (7.350-7.450) H 10/16/18 05:05 POC ABG pCO2 54.9 (35-45) H 10/15/18 04:58 ABG pCO2 48.7 mm Hg 10/16/18 05:05 POC ABG pO2 72 (80-105) L 10/15/18 04:58 ABG pO2 66.6 mm Hg (80.0-90.0) L 10/16/18 05:05 POC ABG HCO3 35.7 (22-26 mml/L) 10/15/18 04:58 ABG HCO3 33.3 mmol/L (20.0-26.0) H 10/16/18 05:05 POC ABG Total CO2 37 (23-27mmol/L) 10/15/18 04:58 POC ABG O2 Sat 94 10/15/18 04:58 ABG O2 Saturation 94.0 % (95.0-99.0) L 10/16/18 05:05 ABG O2 Content 11.4 (0.0-44) 10/16/18 05:05 POC ABG Base Excess 11 ((-2) - (+3)mmol/L) 10/15/18 04:58 ABG Base Excess 8.4 mmol/L (-2.0-3.0) H 10/16/18 05:05 ABG Hemoglobin 8.7 gm/dl (12.0-16.0) L 10/16/18 05:05 ABG Carboxyhemoglobin 1.5 % (0.0-5.0) 10/16/18 05:05 ABG Methemoglobin 0.6 % (0.0-1.5) 10/16/18 05:05 92.1 % (95.0-99.0) L 10/16/18 05:05 25 % 10/16/18 05:05 Sodium 136 mmol/L (137-145) L 10/16/18 05:12 Potassium 4.7 mmol/L (3.6-5.0) 10/16/18 05:12 Chloride 96.3 mmol/L (98-107) L 10/16/18 05:12 Carbon Dioxide 34 mmol/L (22-30) H 10/16/18 05:12 10 mmol/L 10/16/18 05:12 BUN 20 mg/dL (7-17) H 10/16/18 05:12 0.3 mg/dL (0.7-1.2) L 10/16/18 05:12 Estimated GFR > 60 ml/min 10/16/18 05:12 67 % 10/16/18 05:12 Glucose 183 mg/dL (65-100) H 10/16/18 05:12 POC Glucose 200 (70-105) H 10/16/18 11:25 Lactic Acid 1.90 mmol/L (0.7-2.0) 10/09/18 20:50 Calcium 10.1 mg/dL (8.4-10.2) 10/16/18 05:12 Magnesium 3.70 mg/dL (1.7-2.3) H 10/09/18 10:50 0.30 mg/dL (0.1-1.2) 10/09/18 10:50 AST 51 units/L (5-40) H 10/09/18 10:50 ALT 67 units/L (7-56) H 10/09/18 10:50 60 units/L (35-129) 10/09/18 10:50 171 units/L (30-135) H 10/09/18 10:50 < 0.010 ng/mL (0.00-0.029) 10/09/18 10:50 2.70 mg/dL (0.00-1.30) H 10/12/18 13:03 5.3 g/dL (6.3-8.2) L 10/09/18 10:50 3.0 g/dL (3.9-5) L 10/09/18 10:50 1.3 % 10/09/18 10:50 Yellow (Yellow) 10/09/18 12:12 Hazy (Clear) 10/09/18 12:12 7.0 (5.0-7.0) 10/09/18 12:12 Ur Specific [place] 1.011 (1.003-1.030) 10/09/18 12:12 100 mg/dl mg/dL (Negative) 10/09/18 12:12 150 mg/dL (Negative) 10/09/18 12:12 Neg mg/dL (Negative) 10/09/18 12:12 Sm (Negative) 10/09/18 12:12 Neg (Negative) 10/09/18 12:12 Neg (Negative) 10/09/18 12:12 < 2.0 mg/dL (<2.0) 10/09/18 12:12 Ur Leukocyte Esterase Neg (Negative) 10/09/18 12:12 8.0 /HPF (0.0-6.0) H 10/09/18 12:12 7.0 /HPF (0.0-6.0) 10/09/18 12:12 Few /HPF 10/09/18 12:12 Vancomycin Trough 4.8 ug/mL (5.0-20.0) L 10/12/18 22:33 Salicylates < 0.3 mg/dL (2.8-20.0) L 10/09/18 10:50 Acetaminophen < 5.0 ug/mL (10.0-30.0) L 10/09/18 10:50 Plasma/Serum Alcohol < 0.01 % (0-0.07) 10/09/18 10:50 Active Medications - Current Medications Current Medications: Generic Name Dose Route Start Last Admin Trade Name Vargheseq PRN Reason Stop Dose Admin Acetaminophen 650 mg 10/10/18 00:18 10/15/18 14:57 Tylenol [place] 650 mg Q4H PRN Administration Pain, Mild (1-3) Albuterol 2.5 mg 10/12/18 12:20 Proventil IH Q4HRT PRN Shortness Of Breath Lipase/Protease/Amylase 1 each 10/10/18 10:[address] 10,500 Unit FEEDTUBE PRN PRN For Clogged Feeding Tube Apixaban 5 mg 10/09/18 22:00 10/16/18 11:06 Eliquis PO 5 mg BID SAUNDRA Administration Protocol Cholestyramine Resin 4 gm 10/16/18 15:00 10/16/18 14:25 Questran PO 10/18/18 23:59 4 gm Q8HR SAUNDRA Administration Diltiazem HCl 60 mg 10/10/18 12:00 10/16/18 17:03 Cardizem PO 60 mg Q6HR SAUNDRA Administration Famotidine 20 mg 10/10/18 22:00 10/16/18 11:06 Pepcid PO 20 mg BID SAUNDRA Administration Fentanyl 50 mcg 10/09/18 10:48 10/09/18 14:24 Sublimaze IV 50 mcg Q10MIN PRN Administration ANALGESIA Hydralazine HCl 10 mg 10/16/18 02:07 10/16/18 02:20 Apresoline IV 10 mg Q4H PRN Administration Blood Pressure Hydralazine HCl 25 mg 10/16/18 15:00 10/16/18 14:27 Apresoline PO 25 mg BID SAUNDRA Administration Hydrophilic Ointment 1 applic 10/09/18 10:48 Vaseline Lip Therapy TP Q2HR PRN Dry Lips Norepinephrine 4 mg in 250 mls @ 7.5 mls/hr 10/09/18 11:00 10/10/18 05:21 Levophed Drip 4 Mg/Ns 250 Ml IV 0 mcg/min TITR SAUNDRA 0 mls/hr Titration Protocol 2 MCG/MIN Fentanyl Citrate 2,000 mcg in 100 mls @ 3.561 mls/hr 10/09/18 11:00 Fentanyl Drip Premix IV TITR SAUNDRA Protocol 1 MCG/KG/HR Midazolam HCl 100 mg/ Sodium 100 mls @ 2 mls/hr 10/09/18 11:00 10/11/18 10:50 Chloride IV 2 mg/hr TITR SAUNDRA 2 mls/hr Administration Protocol 2 MG/HR Vasopressin 20 unit/ Sodium 101 mls @ 9.09 mls/hr 10/09/18 15:00 10/10/18 06:16 Chloride IV 0 units/min TITR SAUNDRA 0 mls/hr Titration Protocol 0.03 UNITS/MIN Cefepime HCl 2 gm in 100 mls @ 200 mls/hr 10/10/18 10:00 10/16/18 14:25 Maxipime/Ns 2 Gm/100 Ml IV 200 mls/hr Q8HR SAUNDRA Administration Protocol Metronidazole 500 mg in 100 mls @ 100 mls/hr 10/12/18 16:00 10/16/18 17:03 Flagyl 500 Mg/100 Ml IV 100 mls/hr Q8H SAUNDRA Administration Protocol Insulin Human Lispro 0 unit 10/10/18 12:00 10/16/18 12:25 Humalog SUB-Q 3 unit Q6HR SAUNDRA Administration Protocol Levetiracetam 500 mg 10/11/18 10:00 10/16/18 11:06 Keppra PO 500 mg BID SAUNDRA Administration Metoprolol Tartrate 5 mg 10/10/18 09:21 10/13/18 20:08 Lopressor IV 5 mg Q6HR PRN Administration Hypertension Metoprolol Tartrate 50 mg 10/15/18 14:25 10/16/18 11:06 Lopressor PO 50 mg BID SAUNDRA Administration Midazolam HCl 2 mg 10/12/18 12:21 Versed IV Q2H PRN Sedation Modafinil 100 mg 10/14/18 13:10 10/16/18 11:06 Provigil PO 100 mg QAM SAUNDRA Administration Multi-Ingred Cream/Lotion/Oil/Oint 1 applic 10/09/18 10:48 10/09/18 18:29 Artificial Tears Ophth Oint OU 1 applic Q4HR PRN Administration Dry Eye(s) Simple Syrup 15 ml 10/10/18 10:31 Simple Syrup FEEDTUBE PRN PRN Hypoglycemia Simple Syrup 30 ml 10/10/18 10:31 Simple Syrup FEEDTUBE PRN PRN Hypoglycemia Sodium Bicarbonate 325 mg 10/10/18 10:31 Sodium Bicarbonate FEEDTUBE PRN PRN For Clogged Feeding Tube Sodium Chloride 5 ml 10/09/18 10:48 Nacl 0.9% 500 Ml IV DIRECT PRN [employer] Sodium Chloride 10 ml 10/09/18 22:00 10/15/18 21:02 Sodium Chloride Flush Syringe 10 Ml IV 10 ml BID SAUNDRA Administration Sodium Chloride 10 ml 10/09/18 13:07 Sodium Chloride Flush Syringe 10 Ml IV PRN PRN LINE FLUSH Nutrition/Malnutrition Assess - Dietary Evaluation Nutrition/Malnutrition Findings: Nutrition Notes Start: 10/10/18 08:09 Freq: Status: Active Protocol: Document 10/13/18 10:34 LM (Rec: 10/13/18 10:40 LM [email or web address]) Nutrition Notes Initial or Follow up Reassessment Current Diagnosis Sepsis,Hypertension, Respiratory Failure Other Pertinent Diagnosis Anoxic brain injury Current Diet Vital AF 1.2 at 50 ml/hr Labs/Tests BG 139 Cr 0.3 Pertinent Medications Reviewed Height 5 ft 2 in Weight 63.7 kg [place] Body Weight (kg) 50.00 BMI 25.7 Subjective/Other Information TF running at 50 ml/hr. Pt tolerating TF well. Percent of energy/protein needs met: 100%/100% Burn Absent Trauma Absent #1 Nutrition Diagnosis Inadequate oral intake Diagnosis Progress(for reassessment Continues documentation) Is patient on ventilator? Yes Is Patient Ambulatory and/or Out of Bed No REE-([place]-confined to bed) 1361.868 Calculation Used for Recommendations [facility] Additional Notes Protein: 76-127g (1.2-2 g/kg) Fluid: 1 ml/kcal Nutrition Intervention Change Diet Order: Continue TF Nutrition Support: Vital AF 1.2 at 50 ml/hr Flush 75 ml/hr Kcal 1,440 Protein (gm) 90 Fluid (mL) 973 Goal #1 Meet at least 75% of energy and protein needs Anticipated Discharge Needs: Unable to determine at this time Follow-Up By: 10/20/18 Additional Comments F/U for TF rate/tolerance
--- NOTE | 2018-10-16 18:14 | Consultation ---
History of Present Illness Consult date: 10/16/18 Reason for Consult: Altered mental status Chief complaint: Altered mental status History of present illness: Patient is a 68 old woman with a history of hypertension, atrial fibrillation on anticoagulation, GERD. The patient was found down, and was found to be in cardiac arrest. The approximate time duration of cardiac arrest was approximate 45-50 minutes, prior to return of spontaneous circulation. Prior to this event, the patient had been treated previously for respiratory distress at a separate hospital. During the course of this admission, the patient had an MRI which revealed evidence of an anoxic injury. EEG was done previously which showed generalized slowing, no evidence of seizures. Neurology was reconsulted for further discussion regarding prognosis. Past History Past Medical History: atrial fib, GERD, hypertension Past Surgical History: Other (Colonscopy) Social history: . denies: smoking, alcohol abuse, prescription drug abuse Family history: hypertension Medications and Allergies Allergies Allergy/AdvReac Type Severity Reaction Status Date / Time Penicillins Allergy Hives Verified 06/30/18 10:56 Home Medications Medication Instructions Recorded Confirmed Last Taken Type Acetaminophen [Acetaminophen TAB] 325 mg PO Q4H PRN #15 tablet 07/28/18 10/10/18 Unknown Rx Apixaban [Eliquis] 5 mg PO BID #60 tablet 07/28/18 10/10/18 Unknown Rx dilTIAZem [Cardizem] 30 mg PO Q8H #90 tablet 07/28/18 10/10/18 Unknown Rx Active Meds: Active Medications Acetaminophen (Tylenol) 650 mg IL Q4H PRN PRN Reason: Pain, Mild (1-3) Last Admin: 10/15/18 14:57 Dose: 650 mg Documented by: Albuterol (Proventil) 2.5 mg IH Q4HRT PRN PRN Reason: Shortness Of Breath Lipase/Protease/Amylase (Pancreaze 10,500 Unit) 1 each FEEDTUBE PRN PRN PRN Reason: For Clogged Feeding Tube Apixaban (Eliquis) 5 mg PO BID SAUNDRA; Protocol Last Admin: 10/16/18 11:06 Dose: 5 mg Documented by: Cholestyramine Resin (Questran) 4 gm PO Q8HR SAUNDRA Stop: 10/18/18 23:59 Last Admin: 10/16/18 14:25 Dose: 4 gm Documented by: Diltiazem HCl (Cardizem) 60 mg PO Q6HR SAUNDRA Last Admin: 10/16/18 17:03 Dose: 60 mg Documented by: Famotidine (Pepcid) 20 mg PO BID SAUNDRA Last Admin: 10/16/18 11:06 Dose: 20 mg Documented by: Fentanyl (Sublimaze) 50 mcg IV Q10MIN PRN PRN Reason: ANALGESIA Last Admin: 10/09/18 14:24 Dose: 50 mcg Documented by: Hydralazine HCl (Apresoline) 10 mg IV Q4H PRN PRN Reason: Blood Pressure Last Admin: 10/16/18 02:20 Dose: 10 mg Documented by: Hydralazine HCl (Apresoline) 25 mg PO BID SAUNDRA Last Admin: 10/16/18 14:27 Dose: 25 mg Documented by: Hydrophilic Ointment (Vaseline Lip Therapy) 1 applic TP Q2HR PRN PRN Reason: Dry Lips Norepinephrine (Levophed Drip 4 Mg/Ns 250 Ml) 4 mg in 250 mls @ 7.5 mls/hr IV TITR SAUNDRA; Protocol Last Titration: 10/10/18 05:21 Dose: 0 mcg/min, 0 mls/hr Documented by: Fentanyl Citrate (Fentanyl Drip Premix) 2,000 mcg in 100 mls @ 3.561 mls/hr IV TITR SAUNDRA; Protocol Midazolam HCl 100 mg/ Sodium (Chloride) 100 mls @ 2 mls/hr IV TITR SAUNDRA; Protocol Last Admin: 10/11/18 10:50 Dose: 2 mg/hr, 2 mls/hr Documented by: Vasopressin 20 unit/ Sodium (Chloride) 101 mls @ 9.09 mls/hr IV TITR SAUNDRA; Protocol Last Titration: 10/10/18 06:16 Dose: 0 units/min, 0 mls/hr Documented by: Cefepime HCl (Maxipime/Ns 2 Gm/100 Ml) 2 gm in 100 mls @ 200 mls/hr IV Q8HR SAUNDRA; Protocol Last Admin: 10/16/18 14:25 Dose: 200 mls/hr Documented by: Metronidazole (Flagyl 500 Mg/100 Ml) 500 mg in 100 mls @ 100 mls/hr IV Q8H SAUNDRA; Protocol Last Admin: 10/16/18 17:03 Dose: 100 mls/hr Documented by: Insulin Human Lispro (Humalog) 0 unit SUB-Q Q6HR [facility]; Protocol Last Admin: 10/16/18 12:25 Dose: 3 unit Documented by: Levetiracetam (Keppra) 500 mg PO BID [facility] Last Admin: 10/16/18 11:06 Dose: 500 mg Documented by: Metoprolol Tartrate (Lopressor) 5 mg IV Q6HR PRN PRN Reason: Hypertension Last Admin: 10/13/18 20:08 Dose: 5 mg Documented by: Metoprolol Tartrate (Lopressor) 50 mg PO BID [facility] Last Admin: 10/16/18 11:06 Dose: 50 mg Documented by: Midazolam HCl (Versed) 2 mg IV Q2H PRN PRN Reason: Sedation Modafinil (Provigil) 100 mg PO QAM [facility] Last Admin: 10/16/18 11:06 Dose: 100 mg Documented by: Multi-Ingred Cream/Lotion/Oil/Oint (Artificial Tears Ophth Oint) 1 applic OU Q4HR PRN PRN Reason: Dry Eye(s) Last Admin: 10/09/18 18:29 Dose: 1 applic Documented by: Simple Syrup (Simple Syrup) 15 ml FEEDTUBE PRN PRN PRN Reason: Hypoglycemia Simple Syrup (Simple Syrup) 30 ml FEEDTUBE PRN PRN PRN Reason: Hypoglycemia Sodium Bicarbonate (Sodium Bicarbonate) 325 mg FEEDTUBE PRN PRN PRN Reason: For Clogged Feeding Tube Sodium Chloride (Nacl 0.9% 500 Ml) 5 ml IV DIRECT PRN PRN Reason: [employer]IST[employer] Sodium Chloride (Sodium Chloride Flush Syringe 10 Ml) 10 ml IV BID [facility] Last Admin: 10/15/18 21:02 Dose: 10 ml Documented by: Sodium Chloride (Sodium Chloride Flush Syringe 10 Ml) 10 ml IV PRN PRN PRN Reason: LINE FLUSH Review of Systems ROS unobtainable: due to mental status Physical Examination - Vital Signs Vital Signs: Vital Signs Pulse Resp 169 H 10/09/18 10:06 10/09/18 10:06 - Physical Exam Narrative exam: Patient is intubated, comatose. Pupils equal, round, reactive to light, corneal reflexes intact, cough reflex intact. Withdraws to pain stimulation in all extremities. Reflexes 2+ throughout. No spontaneous movement noted. - Constitutional General appearance: acutely ill - EENT EENT: Present: ATNC, PERRL, mucous membranes moist - Respiratory Respiratory: Present: decreased breath sounds - Cardiovascular Cardiovascular: Present: regular rate, normal S1, normal S2 Extremities: Present: no clubbing, cyanosis - Gastrointestinal Gastrointestinal: Present: normoactive bowel sounds, soft, non-tender - Neurologic Cranial nerve examination: PERRL Reflexes: 3+: ankle, bicep, knee, tricep Results - Laboratory Findings CBC and BMP: 10/16/18 05:12 10/16/18 05:12 Abnormal Lab Findings: Abnormal Labs 10/09/18 10/09/18 10/09/18 10:14 10:50 10:50 WBC RBC Hgb Hct RDW Lymph % (Auto) Boyle % (Auto) Boyle # Seg Neutrophils % Seg Neuts % (Manual) Lymphocytes % (Manual) Seg Neutrophils # Seg Neutrophils # Man Lymphocytes # (Manual) Monocytes # (Manual) PT 16.6 H INR 1.38 H APTT 39.4 H POC ABG pH ABG pH POC ABG pCO2 POC ABG pO2 ABG pO2 ABG HCO3 ABG O2 Saturation ABG Base Excess ABG Hemoglobin Oxyhemoglobin Sodium Chloride 90.3 L Carbon Dioxide BUN 21 H Creatinine Glucose 315 H POC Glucose 344 H Lactic Acid Magnesium AST 51 H ALT 67 H Total Creatine Kinase C-Reactive Protein Total Protein 5.3 L Albumin 3.0 L Urine WBC (Auto) Vancomycin Trough Salicylates Acetaminophen 10/09/18 10/09/18 10/09/18 10:50 10:50 10:50 WBC RBC Hgb Hct RDW Lymph % (Auto) Boyle % (Auto) Boyle # Seg Neutrophils % Seg Neuts % (Manual) Lymphocytes % (Manual) Seg Neutrophils # Seg Neutrophils # Man Lymphocytes # (Manual) Monocytes # (Manual) PT INR APTT POC ABG pH ABG pH POC ABG pCO2 POC ABG pO2 ABG pO2 ABG HCO3 ABG O2 Saturation ABG Base Excess ABG Hemoglobin Oxyhemoglobin Sodium Chloride Carbon Dioxide BUN Creatinine Glucose POC Glucose Lactic Acid Magnesium 3.70 H AST ALT Total Creatine Kinase 171 H C-Reactive Protein Total Protein Albumin Urine WBC (Auto) Vancomycin Trough Salicylates < 0.3 L Acetaminophen < 5.0 L 10/09/18 10/09/18 10/09/18 10:50 10:55 11:38 WBC 31.3 H RBC Hgb Hct RDW 13.0 L Lymph % (Auto) Boyle % (Auto) Boyle # Seg Neutrophils % Seg Neuts % (Manual) 91.5 H Lymphocytes % (Manual) 4.5 L Seg Neutrophils # Seg Neutrophils # Man 28.6 H Lymphocytes # (Manual) Monocytes # (Manual) 1.1 H PT INR APTT POC ABG pH 7.243 L ABG pH POC ABG pCO2 68.0 H POC ABG pO2 389 H ABG pO2 ABG HCO3 ABG O2 Saturation ABG Base Excess ABG Hemoglobin Oxyhemoglobin Sodium Chloride Carbon Dioxide BUN Creatinine Glucose POC Glucose Lactic Acid 9.30 H* Magnesium AST ALT Total Creatine Kinase C-Reactive Protein Total Protein Albumin Urine WBC (Auto) Vancomycin Trough Salicylates Acetaminophen 10/09/18 10/09/18 10/09/18 12:12 15:28 16:27 WBC RBC Hgb Hct RDW Lymph % (Auto) Boyle % (Auto) Boyle # Seg Neutrophils % Seg Neuts % (Manual) Lymphocytes % (Manual) Seg Neutrophils # Seg Neutrophils # Man Lymphocytes # (Manual) Monocytes # (Manual) PT INR APTT POC ABG pH 7.598 H ABG pH POC ABG pCO2 POC ABG pO2 61 L ABG pO2 ABG HCO3 ABG O2 Saturation ABG Base Excess ABG Hemoglobin Oxyhemoglobin Sodium Chloride Carbon Dioxide BUN Creatinine Glucose POC Glucose 173 H Lactic Acid Magnesium AST ALT Total Creatine Kinase C-Reactive Protein Total Protein Albumin Urine WBC (Auto) 8.0 H Vancomycin Trough Salicylates Acetaminophen 10/09/18 10/09/18 10/09/18 16:44 16:44 18:38 WBC RBC Hgb Hct RDW Lymph % (Auto) Boyle % (Auto) Boyle # Seg Neutrophils % Seg Neuts % (Manual) Lymphocytes % (Manual) Seg Neutrophils # Seg Neutrophils # Man Lymphocytes # (Manual) Monocytes # (Manual) PT INR APTT POC ABG pH ABG pH POC ABG pCO2 POC ABG pO2 ABG pO2 ABG HCO3 ABG O2 Saturation ABG Base Excess ABG Hemoglobin Oxyhemoglobin Sodium Chloride Carbon Dioxide BUN Creatinine Glucose POC Glucose 177 H Lactic Acid 3.80 H* 3.70 H* Magnesium AST ALT Total Creatine Kinase C-Reactive Protein Total Protein Albumin Urine WBC (Auto) Vancomycin Trough Salicylates Acetaminophen 10/10/18 10/10/18 10/10/18 00:33 04:24 05:32 WBC RBC Hgb Hct RDW Lymph % (Auto) Boyle % (Auto) Boyle # Seg Neutrophils % Seg Neuts % (Manual) Lymphocytes % (Manual) Seg Neutrophils # Seg Neutrophils # Man Lymphocytes # (Manual) Monocytes # (Manual) PT INR APTT POC ABG pH 7.602 H ABG pH POC ABG pCO2 POC ABG pO2 170 H ABG pO2 ABG HCO3 ABG O2 Saturation ABG Base Excess ABG Hemoglobin Oxyhemoglobin Sodium Chloride Carbon Dioxide BUN Creatinine Glucose POC Glucose 177 H 190 H Lactic Acid Magnesium AST ALT Total Creatine Kinase C-Reactive Protein Total Protein Albumin Urine WBC (Auto) Vancomycin Trough Salicylates Acetaminophen 10/10/18 10/10/18 10/10/18 07:54 07:54 12:18 WBC 38.6 H RBC Hgb Hct RDW Lymph % (Auto) Boyle % (Auto) Boyle # Seg Neutrophils % Seg Neuts % (Manual) Lymphocytes % (Manual) Seg Neutrophils # Seg Neutrophils # Man Lymphocytes # (Manual) Monocytes # (Manual) PT INR APTT POC ABG pH ABG pH POC ABG pCO2 POC ABG pO2 ABG pO2 ABG HCO3 ABG O2 Saturation ABG Base Excess ABG Hemoglobin Oxyhemoglobin Sodium Chloride Carbon Dioxide BUN 31 H Creatinine Glucose 124 H POC Glucose 151 H Lactic Acid Magnesium AST ALT Total Creatine Kinase C-Reactive Protein Total Protein Albumin Urine WBC (Auto) Vancomycin Trough Salicylates Acetaminophen 10/10/18 10/10/18 10/11/18 18:17 23:09 03:40 WBC RBC Hgb Hct RDW Lymph % (Auto) Boyle % (Auto) Boyle # Seg Neutrophils % Seg Neuts % (Manual) Lymphocytes % (Manual) Seg Neutrophils # Seg Neutrophils # Man Lymphocytes # (Manual) Monocytes # (Manual) PT INR APTT POC ABG pH ABG pH POC ABG pCO2 POC ABG pO2 ABG pO2 91.1 H ABG HCO3 28.8 H ABG O2 Saturation ABG Base Excess ABG Hemoglobin 7.6 L Oxyhemoglobin Sodium Chloride Carbon Dioxide BUN Creatinine Glucose POC Glucose 132 H 124 H Lactic Acid Magnesium AST ALT Total Creatine Kinase C-Reactive Protein Total Protein Albumin Urine WBC (Auto) Vancomycin Trough Salicylates Acetaminophen 10/11/18 10/11/18 10/11/18 04:45 04:45 06:50 WBC 25.8 H RBC 3.41 L Hgb Hct RDW Lymph % (Auto) Boyle % (Auto) Boyle # Seg Neutrophils % Seg Neuts % (Manual) 83.0 H Lymphocytes % (Manual) Seg Neutrophils # Seg Neutrophils # Man 21.4 H Lymphocytes # (Manual) Monocytes # (Manual) PT INR APTT POC ABG pH ABG pH POC ABG pCO2 POC ABG pO2 ABG pO2 ABG HCO3 ABG O2 Saturation ABG Base Excess ABG Hemoglobin Oxyhemoglobin Sodium Chloride Carbon Dioxide BUN 26 H Creatinine 0.6 L Glucose 134 H POC Glucose 134 H Lactic Acid Magnesium AST ALT Total Creatine Kinase C-Reactive Protein Total Protein Albumin Urine WBC (Auto) Vancomycin Trough Salicylates Acetaminophen 10/11/18 10/11/18 10/12/18 13:10 18:08 00:25 WBC RBC Hgb Hct RDW Lymph % (Auto) Boyle % (Auto) Boyle # Seg Neutrophils % Seg Neuts % (Manual) Lymphocytes % (Manual) Seg Neutrophils # Seg Neutrophils # Man Lymphocytes # (Manual) Monocytes # (Manual) PT INR APTT POC ABG pH ABG pH POC ABG pCO2 POC ABG pO2 ABG pO2 ABG HCO3 ABG O2 Saturation ABG Base Excess ABG Hemoglobin Oxyhemoglobin Sodium Chloride Carbon Dioxide BUN Creatinine Glucose POC Glucose 160 H 166 H 136 H Lactic Acid Magnesium AST ALT Total Creatine Kinase C-Reactive Protein Total Protein Albumin Urine WBC (Auto) Vancomycin Trough Salicylates Acetaminophen 10/12/18 10/12/18 10/12/18 03:56 04:17 04:17 WBC 19.2 H RBC 3.04 L Hgb 8.9 L Hct 27.2 L RDW Lymph % (Auto) 8.5 L Boyle % (Auto) Boyle # 1.4 H Seg Neutrophils % 84.2 H Seg Neuts % (Manual) Lymphocytes % (Manual) Seg Neutrophils # 16.2 H Seg Neutrophils # Man Lymphocytes # (Manual) Monocytes # (Manual) PT INR APTT POC ABG pH ABG pH POC ABG pCO2 POC ABG pO2 ABG pO2 77.9 L ABG HCO3 29.4 H ABG O2 Saturation ABG Base Excess 4.4 H ABG Hemoglobin 10.2 L Oxyhemoglobin 94.7 L Sodium Chloride Carbon Dioxide BUN Creatinine 0.5 L Glucose 139 H POC Glucose Lactic Acid Magnesium AST ALT Total Creatine Kinase C-Reactive Protein Total Protein Albumin Urine WBC (Auto) Vancomycin Trough Salicylates Acetaminophen 10/12/18 10/12/18 10/12/18 05:51 11:46 13:03 WBC RBC Hgb Hct RDW Lymph % (Auto) Boyle % (Auto) Boyle # Seg Neutrophils % Seg Neuts % (Manual) Lymphocytes % (Manual) Seg Neutrophils # Seg Neutrophils # Man Lymphocytes # (Manual) Monocytes # (Manual) PT INR APTT POC ABG pH ABG pH POC ABG pCO2 POC ABG pO2 ABG pO2 ABG HCO3 ABG O2 Saturation ABG Base Excess ABG Hemoglobin Oxyhemoglobin Sodium Chloride Carbon Dioxide BUN Creatinine Glucose POC Glucose 163 H 162 H Lactic Acid Magnesium AST ALT Total Creatine Kinase C-Reactive Protein 2.70 H Total Protein Albumin Urine WBC (Auto) Vancomycin Trough Salicylates Acetaminophen 10/12/18 10/12/18 10/12/18 17:44 22:33 23:54 WBC RBC Hgb Hct RDW Lymph % (Auto) Boyle % (Auto) Boyle # Seg Neutrophils % Seg Neuts % (Manual) Lymphocytes % (Manual) Seg Neutrophils # Seg Neutrophils # Man Lymphocytes # (Manual) Monocytes # (Manual) PT INR APTT POC ABG pH ABG pH POC ABG pCO2 POC ABG pO2 ABG pO2 ABG HCO3 ABG O2 Saturation ABG Base Excess ABG Hemoglobin Oxyhemoglobin Sodium Chloride Carbon Dioxide BUN Creatinine Glucose POC Glucose 143 H 180 H Lactic Acid Magnesium AST ALT Total Creatine Kinase C-Reactive Protein Total Protein Albumin Urine WBC (Auto) Vancomycin Trough 4.8 L Salicylates Acetaminophen 10/13/18 10/13/18 10/13/18 02:30 02:30 03:10 WBC 19.8 H RBC 3.12 L Hgb 9.2 L Hct 28.2 L RDW Lymph % (Auto) 8.1 L Boyle % (Auto) 8.0 H Boyle # 1.6 H Seg Neutrophils % 83.2 H Seg Neuts % (Manual) Lymphocytes % (Manual) Seg Neutrophils # 16.5 H Seg Neutrophils # Man Lymphocytes # (Manual) Monocytes # (Manual) PT INR APTT POC ABG pH ABG pH POC ABG pCO2 POC ABG pO2 ABG pO2 ABG HCO3 32.9 H ABG O2 Saturation ABG Base Excess 7.2 H ABG Hemoglobin 10.8 L Oxyhemoglobin Sodium Chloride Carbon Dioxide BUN Creatinine 0.3 L Glucose 139 H POC Glucose Lactic Acid Magnesium AST ALT Total Creatine Kinase C-Reactive Protein Total Protein Albumin Urine WBC (Auto) Vancomycin Trough Salicylates Acetaminophen 10/13/18 10/13/18 10/13/18 05:17 11:52 17:18 WBC RBC Hgb Hct RDW Lymph % (Auto) Boyle % (Auto) Boyle # Seg Neutrophils % Seg Neuts % (Manual) Lymphocytes % (Manual) Seg Neutrophils # Seg Neutrophils # Man Lymphocytes # (Manual) Monocytes # (Manual) PT INR APTT POC ABG pH ABG pH POC ABG pCO2 56.7 H POC ABG pO2 63 L ABG pO2 ABG HCO3 ABG O2 Saturation ABG Base Excess ABG Hemoglobin Oxyhemoglobin Sodium Chloride Carbon Dioxide BUN Creatinine Glucose POC Glucose 192 H 200 H Lactic Acid Magnesium AST ALT Total Creatine Kinase C-Reactive Protein Total Protein Albumin Urine WBC (Auto) Vancomycin Trough Salicylates Acetaminophen 10/13/18 10/14/18 10/14/18 17:53 00:00 03:55 WBC RBC Hgb Hct RDW Lymph % (Auto) Boyle % (Auto) Boyle # Seg Neutrophils % Seg Neuts % (Manual) Lymphocytes % (Manual) Seg Neutrophils # Seg Neutrophils # Man Lymphocytes # (Manual) Monocytes # (Manual) PT INR APTT POC ABG pH ABG pH POC ABG pCO2 POC ABG pO2 ABG pO2 ABG HCO3 34.1 H ABG O2 Saturation ABG Base Excess 8.4 H ABG Hemoglobin 10.6 L Oxyhemoglobin 94.8 L Sodium Chloride Carbon Dioxide BUN Creatinine Glucose POC Glucose 215 H 236 H Lactic Acid Magnesium AST ALT Total Creatine Kinase C-Reactive Protein Total Protein Albumin Urine WBC (Auto) Vancomycin Trough Salicylates Acetaminophen 10/14/18 10/14/18 10/14/18 05:00 08:05 08:05 WBC 16.8 H RBC 3.27 L Hgb 9.8 L Hct 29.7 L RDW 13.1 L Lymph % (Auto) 7.5 L Boyle % (Auto) 8.6 H Boyle # 1.4 H Seg Neutrophils % 82.4 H Seg Neuts % (Manual) Lymphocytes % (Manual) Seg Neutrophils # 13.8 H Seg Neutrophils # Man Lymphocytes # (Manual) Monocytes # (Manual) PT INR APTT POC ABG pH ABG pH POC ABG pCO2 POC ABG pO2 ABG pO2 ABG HCO3 ABG O2 Saturation ABG Base Excess ABG Hemoglobin Oxyhemoglobin Sodium Chloride Carbon Dioxide 33 H BUN Creatinine 0.3 L Glucose 140 H POC Glucose 170 H Lactic Acid Magnesium AST ALT Total Creatine Kinase C-Reactive Protein Total Protein Albumin Urine WBC (Auto) Vancomycin Trough Salicylates Acetaminophen 10/14/18 10/14/18 10/14/18 12:04 14:06 18:04 WBC RBC Hgb Hct RDW Lymph % (Auto) Boyle % (Auto) Boyle # Seg Neutrophils % Seg Neuts % (Manual) Lymphocytes % (Manual) Seg Neutrophils # Seg Neutrophils # Man Lymphocytes # (Manual) Monocytes # (Manual) PT INR APTT POC ABG pH 7.330 L ABG pH POC ABG pCO2 67.6 H POC ABG pO2 75 L ABG pO2 ABG HCO3 ABG O2 Saturation ABG Base Excess ABG Hemoglobin Oxyhemoglobin Sodium Chloride Carbon Dioxide BUN Creatinine Glucose POC Glucose 202 H 189 H Lactic Acid Magnesium AST ALT Total Creatine Kinase C-Reactive Protein Total Protein Albumin Urine WBC (Auto) Vancomycin Trough Salicylates Acetaminophen 10/14/18 10/15/18 10/15/18 23:16 04:58 05:03 WBC 18.0 H RBC 3.36 L Hgb Hct RDW Lymph % (Auto) 7.5 L Boyle % (Auto) Boyle # 1.3 H Seg Neutrophils % 83.2 H Seg Neuts % (Manual) Lymphocytes % (Manual) Seg Neutrophils # 15.0 H Seg Neutrophils # Man Lymphocytes # (Manual) Monocytes # (Manual) PT INR APTT POC ABG pH ABG pH POC ABG pCO2 54.9 H POC ABG pO2 72 L ABG pO2 ABG HCO3 ABG O2 Saturation ABG Base Excess ABG Hemoglobin Oxyhemoglobin Sodium Chloride Carbon Dioxide BUN Creatinine Glucose POC Glucose 187 H Lactic Acid Magnesium AST ALT Total Creatine Kinase C-Reactive Protein Total Protein Albumin Urine WBC (Auto) Vancomycin Trough Salicylates Acetaminophen 10/15/18 10/15/18 10/15/18 05:03 05:54 11:53 WBC RBC Hgb Hct RDW Lymph % (Auto) Boyle % (Auto) Boyle # Seg Neutrophils % Seg Neuts % (Manual) Lymphocytes % (Manual) Seg Neutrophils # Seg Neutrophils # Man Lymphocytes # (Manual) Monocytes # (Manual) PT INR APTT POC ABG pH ABG pH POC ABG pCO2 POC ABG pO2 ABG pO2 ABG HCO3 ABG O2 Saturation ABG Base Excess ABG Hemoglobin Oxyhemoglobin Sodium Chloride Carbon Dioxide 33 H BUN 19 H Creatinine 0.3 L Glucose 161 H POC Glucose 191 H 188 H Lactic Acid Magnesium AST ALT Total Creatine Kinase C-Reactive Protein Total Protein Albumin Urine WBC (Auto) Vancomycin Trough Salicylates Acetaminophen 10/15/18 10/15/18 10/16/18 17:30 23:15 05:05 WBC RBC Hgb Hct RDW Lymph % (Auto) Boyle % (Auto) Boyle # Seg Neutrophils % Seg Neuts % (Manual) Lymphocytes % (Manual) Seg Neutrophils # Seg Neutrophils # Man Lymphocytes # (Manual) Monocytes # (Manual) PT INR APTT POC ABG pH ABG pH 7.452 H POC ABG pCO2 POC ABG pO2 ABG pO2 66.6 L ABG HCO3 33.3 H ABG O2 Saturation 94.0 L ABG Base Excess 8.4 H ABG Hemoglobin 8.7 L Oxyhemoglobin 92.1 L Sodium Chloride Carbon Dioxide BUN Creatinine Glucose POC Glucose 178 H 177 H Lactic Acid Magnesium AST ALT Total Creatine Kinase C-Reactive Protein Total Protein Albumin Urine WBC (Auto) Vancomycin Trough Salicylates Acetaminophen 10/16/18 10/16/18 10/16/18 05:12 05:12 05:49 WBC 21.9 H RBC 3.62 L Hgb Hct RDW Lymph % (Auto) Boyle % (Auto) Boyle # Seg Neutrophils % Seg Neuts % (Manual) 93.0 H Lymphocytes % (Manual) 1.0 L Seg Neutrophils # Seg Neutrophils # Man 20.4 H Lymphocytes # (Manual) 0.2 L Monocytes # (Manual) 0.9 H PT INR APTT POC ABG pH ABG pH POC ABG pCO2 POC ABG pO2 ABG pO2 ABG HCO3 ABG O2 Saturation ABG Base Excess ABG Hemoglobin Oxyhemoglobin Sodium 136 L Chloride 96.3 L Carbon Dioxide 34 H BUN 20 H Creatinine 0.3 L Glucose 183 H POC Glucose 187 H Lactic Acid Magnesium AST ALT Total Creatine Kinase C-Reactive Protein Total Protein Albumin Urine WBC (Auto) Vancomycin Trough Salicylates Acetaminophen 10/16/18 11:25 WBC RBC Hgb Hct RDW Lymph % (Auto) Boyle % (Auto) Boyle # Seg Neutrophils % Seg Neuts % (Manual) Lymphocytes % (Manual) Seg Neutrophils # Seg Neutrophils # Man Lymphocytes # (Manual) Monocytes # (Manual) PT INR APTT POC ABG pH ABG pH POC ABG pCO2 POC ABG pO2 ABG pO2 ABG HCO3 ABG O2 Saturation ABG Base Excess ABG Hemoglobin Oxyhemoglobin Sodium Chloride Carbon Dioxide BUN Creatinine Glucose POC Glucose 200 H Lactic Acid Magnesium AST ALT Total Creatine Kinase C-Reactive Protein Total Protein Albumin Urine WBC (Auto) Vancomycin Trough Salicylates Acetaminophen Assessment and Plan Patient is a 68 old woman with a history of hypertension, atrial fibrillation on anticoagulation, GERD. The patient was found down, and was found to be in cardiac arrest. The approximate time duration of cardiac arrest was approximate 45-50 minutes, prior to return of spontaneous circulation. 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 Plan: 1. Anoxic brain injury: - Currently, the patient displays intact brainstem reflexes, as corneal, pupillary, and cough reflexes are intact. Patient withdraws to pain in all extremities. MRI revealed evidence of anoxic brain injury with cortical riveting. EEG done previously reportedly showed generalized slowing. I discussed at length with the patient's family at bedside regarding the patient's prognosis. It was discussed that the patient is not currently brain- given the patient's current clinical exam as well as findings on EEG. It was further discussed that the patient's prognosis is indeterminate at this time, given the evidence of anoxic brain injury on MRI. It was also mentioned that, with time, the patient may have some element of neurologic recovery, however the extent of which is difficult to predict. I further discussed transitioning to a tracheostomy and a PEG tube for continued care. All questions were answered and concerns were clarified and addressed with family. - Will continue to follow the patient. -Thank you for allowing me to take part in the care of this patient. Joon Sr MD Neurology
[2018-10-16] MEDS: SODIUM CHLORIDE FLUSH SYRINGE 10 ML IV SCH (21:14)
[2018-10-17 05:03] LABS: Basophils % (Auto) 0.1 % (0.0-1.8); Eosinophils # (Auto) 0.2 K/mm3 (0.0-0.4); Eosinophils % (Auto) 1.1 % (0.0-4.3); Hematocrit 31.8 % (30.3-42.9); Hemoglobin 10.3 gm/dl (10.1-14.3); Lymphocytes # (Auto) 1.4 K/mm3 (1.2-5.4); Lymphocytes % (Auto) 6.8 % (13.4-35.0); Mean Corpuscular HGB Conc 32 % (30-34); Mean Corpuscular Volume 90 fl (79-97); Monocytes # (Auto) 1.5 K/mm3 (0.0-0.8); Monocytes % (Auto) 7.8 % (0.0-7.3); Platelet Count 236 K/mm3 (140-440); Red Blood Count 3.53 M/mm3 (3.65-5.03); Red Cell Distribution Width 14.1 % (13.2-15.2)
[2018-10-17 05:17] LABS: BUN/Creatinine Ratio 67; Blood Urea Nitrogen 20 mg/dL (7-17); Hemolysis Index 11
[2018-10-17] MEDS: CARDIZEM PO SCH ×4 (05:41→23:54)
[2018-10-17] MEDS: HumaLOG SUB-Q SCH ×4 (05:42→23:47)
[2018-10-17] MEDS: MAXIPIME/NS 2 GM/100 ML 2 GM/100 ML BAG IV SCH ×3 (05:42→22:00)
[2018-10-17] MEDS: QUESTRAN PO SCH ×3 (05:42→21:59)
[2018-10-17] MEDS: FLAGYL 500 MG/100 ML 500 MG/100 ML BAG IV SCH ×3 (09:19→23:47)
[2018-10-17] MEDS: PROVIGIL PO SCH (09:19)
[2018-10-17] MEDS: KEPPRA PO SCH ×2 (09:19→21:59)
[2018-10-17] MEDS: LOPRESSOR PO SCH ×2 (09:19→22:00)
[2018-10-17] MEDS: PEPCID PO SCH ×2 (09:20→21:59)
[2018-10-17] MEDS: ELIQUIS PO SCH ×2 (09:20→22:00)
[2018-10-17] MEDS: APRESOLINE PO SCH ×2 (09:20→21:59)
[2018-10-17] MEDS: SODIUM CHLORIDE FLUSH SYRINGE 10 ML IV SCH ×3 (09:23→22:17)
--- NOTE | 2018-10-17 13:44 | XRay Report ---
CHEST 1 VIEW INDICATION: ETT placement. COMPARISON: 10/16/2018 FINDINGS: Support devices: The endotracheal tube terminates 4.4 cm superior to the penelope. A nasogastric tube i s followed to the stomach. Heart: Obscured. Lungs/Pleura: Complete or near-complete left lung atelectasis has developed. The right lung is hypera erated and clear. Additional findings: None. IMPRESSION: Endotracheal tube as described. Complete left lung atelectasis has developed since yesterday's exam. Signer Name: Khoi Cheung Jr, MD Signed: 10/17/2018 1:40 PM Workstation Name: [id number]
--- NOTE | 2018-10-17 13:48 | Progress Note ---
Assessment and Plan s/p cardiopulmonary arrest-OOH with ROSC Acute hyoxemic respiratory failure on MVS Acute hypercapnic respiratory failure Acute encephalopathy- metabolic Sepsis Aspiration pneumonia LLL Myoclonic jerks, post arrest Atrial fibrillation with RVR (s/p family meeting and they have requested DNAR status and contemplating hospic e; also stated she would not have wanted a trach and PEG) - s/p bronchoscopy for Left lung white out - follow BAL studies - continue metoprolol at 50 mg bid - continue hydralazine 25 mg po bid - continue Provigil - continue daily SAT and SBT assessments as tolerated - continue prn albuterol nebs - VAP bundle addressed - continue to wean supplemental O2 to keep O2 sats > 90% - follow 2D ECHO - VTE prophylaxis - Stress ulcer prophylaxis - Continue OGT for nutrition and oral medications - Tube feeding for nutritional support - continue accuchecks with glycemic control per SSI for target blood glucose 140-180mg/dL - follow official EEG report - continue empiric antibiotics for aspiration pneumonia (MRSA and GNR coverage re: recent health care facility associations) - resume chronic home medications per attending - continue Midazolam for sedation and seizure management - continue Keppra - neurology evaluation ongoing - continue mobility protocols / off loading for pressure ulcer prevention - Critical care bundles addressed - continue Seizure precautions - fall precautions - neuro-checks per RN - continue other care per attending / other consultants ... care plan discussed with family in room CONDITION: CRITICAL PROGNOSIS: GUARDED TO GRAVE CODE STATUS: FULL CODE The high probability of a clinically significant, sudden or life threatening deterioration of the [Neurology Respiratory, Cardiovascular] system(s) required my full and direct attention, intervention and personal management. The aggregate critical care time was [36] minutes. This time is in addition to time spent performing reported procedures but includes the following: [x] Data Review and interpretation [x] Patient assessment and monitoring of vital signs [x] Documentation [x] Medication orders and management Subjective Date of service: 10/17/18 Principal diagnosis: Cardiac arrest with ROSC; Ac hypoxemic resp failure; Ac. encephalopathy Interval history: Follow up for: OOH cardiac arrest with ROSC; acute hypoxic-hypercapnic respiratory failure; myoclonic jerks; acute metabolic encephalopathy Seen and examined at bedside; 24hour events reviewed; nursing and respiratory care staff consulted; no adverse overnight events reported to me; resting peacefully in bed; again failed SBT rapidly; AMS is persistent and clinically worse; no emesis or overt aspiration Objective Vital Signs - 12hr 10/17/18 10/17/18 10/17/18 02:01 03:00 03:01 Temperature 98.9 F Pulse Rate 73 61 Pulse Rate [ From Monitor] Respiratory 12 13 Rate Blood Pressure 172/63 127/50 O2 Sat by Pulse 100 100 Oximetry 10/17/18 10/17/18 10/17/18 04:00 05:01 05:10 Temperature Pulse Rate 67 70 65 Pulse Rate [ 67 From Monitor] Respiratory 15 16 Rate Blood Pressure 147/53 147/53 O2 Sat by Pulse 100 100 100 Oximetry 10/17/18 10/17/18 10/17/18 05:41 06:00 07:00 Temperature 98.2 F Pulse Rate 76 78 67 Pulse Rate [ From Monitor] Respiratory 14 15 Rate Blood Pressure 154/62 152/57 121/47 O2 Sat by Pulse 100 100 Oximetry 10/17/18 10/17/18 10/17/18 07:56 08:00 09:00 Temperature 98.2 F Pulse Rate 70 69 71 Pulse Rate [ 69 From Monitor] Respiratory 14 13 Rate Blood Pressure 151/57 151/57 138/52 O2 Sat by Pulse 100 100 100 Oximetry 10/17/18 10/17/18 10/17/18 09: 09:20 10:00 Temperature Pulse Rate 73 74 66 Pulse Rate [ From Monitor] Respiratory 11 L Rate Blood Pressure 138/52 138/52 124/50 O2 Sat by Pulse 100 Oximetry 10/17/18 10/17/18 10/17/18 11:00 12:00 12:03 Temperature 97.3 F L Pulse Rate 71 74 76 Pulse Rate [ From Monitor] Respiratory 15 16 8 L Rate Blood Pressure 130/51 135/54 O2 Sat by Pulse 95 94 98 Oximetry 10/17/18 13:03 Temperature Pulse Rate 76 Pulse Rate [ From Monitor] Respiratory Rate Blood Pressure 209/74 O2 Sat by Pulse Oximetry Constitutional: no acute distress, other (+ myoclonic jerks during sedation vacations) Eyes: non-icteric ENT: oropharynx moist, other (ETT approx 23cm SUELLEN) Neck: supple, no lymphadenopathy, no JVD Effort: mildly labored Ascultation: Bilateral: diminished breath sounds, rhonchi Percussion: Bilateral: not dull Cardiovascular: regular rate and rhythm, other (occasional extrasystolee's) Gastrointestinal: normoactive bowel sounds, soft, non-tender, non-distended Integumentary: normal Extremities: no cyanosis, no edema, pink and warm, pulses normal Neurologic: unable to assess, other (posturing to painful stimuli, Pupils are minimally reactive) Psychiatric: other (unable to assess) CBC and BMP: 10/17/18 04:32 10/17/18 04:32 ABG, PT/INR, D-dimer: ABG POC ABG pH 7.421 (7.35-7.45) 10/15/18 04:58 ABG pH 7.452 pH Units (7.350-7.450) H 10/16/18 05:05 POC ABG pCO2 54.9 (35-45) H 10/15/18 04:58 ABG pCO2 48.7 mm Hg 10/16/18 05:05 POC ABG pO2 72 (80-105) L 10/15/18 04:58 ABG pO2 66.6 mm Hg (80.0-90.0) L 10/16/18 05:05 POC ABG HCO3 35.7 (22-26 mml/L) 10/15/18 04:58 POC ABG Total CO2 37 (23-27mmol/L) 10/15/18 04:58 POC ABG O2 Sat 94 10/15/18 04:58 ABG O2 Saturation 94.0 % (95.0-99.0) L 10/16/18 05:05 PT/INR, D-dimer PT 16.6 Sec. (12.2-14.9) H 10/09/18 10:50 INR 1.38 (0.87-1.13) H 10/09/18 10:50 Abnormal lab findings: Abnormal Labs 10/09/18 10/09/18 10/09/18 10:14 10:50 10:50 WBC RBC Hgb Hct RDW Lymph % (Auto) [place] % (Auto) [place] # Seg Neutrophils % Seg Neuts % (Manual) Lymphocytes % (Manual) Seg Neutrophils # Seg Neutrophils # Man Lymphocytes # (Manual) Monocytes # (Manual) PT 16.6 H INR 1.38 H APTT 39.4 H POC ABG pH ABG pH POC ABG pCO2 POC ABG pO2 ABG pO2 ABG HCO3 ABG O2 Saturation ABG Base Excess ABG Hemoglobin Oxyhemoglobin Sodium Chloride 90.3 L Carbon Dioxide BUN 21 H Creatinine Glucose 315 H POC Glucose 344 H Lactic Acid Magnesium AST 51 H ALT 67 H Total Creatine Kinase C-Reactive Protein Total Protein 5.3 L Albumin 3.0 L Urine WBC (Auto) Vancomycin Trough Salicylates Acetaminophen 10/09/18 10/09/18 10/09/18 10:50 10:50 10:50 WBC RBC Hgb Hct RDW Lymph % (Auto) [place] % (Auto) [place] # Seg Neutrophils % Seg Neuts % (Manual) Lymphocytes % (Manual) Seg Neutrophils # Seg Neutrophils # Man Lymphocytes # (Manual) Monocytes # (Manual) PT INR APTT POC ABG pH ABG pH POC ABG pCO2 POC ABG pO2 ABG pO2 ABG HCO3 ABG O2 Saturation ABG Base Excess ABG Hemoglobin Oxyhemoglobin Sodium Chloride Carbon Dioxide BUN Creatinine Glucose POC Glucose Lactic Acid Magnesium 3.70 H AST ALT Total Creatine Kinase 171 H C-Reactive Protein Total Protein Albumin Urine WBC (Auto) Vancomycin Trough Salicylates < 0.3 L Acetaminophen < 5.0 L 10/09/18 10/09/18 10/09/18 10:50 10:55 11:38 WBC 31.3 H RBC Hgb Hct RDW 13.0 L Lymph % (Auto) [place] % (Auto) [place] # Seg Neutrophils % Seg Neuts % (Manual) 91.5 H Lymphocytes % (Manual) 4.5 L Seg Neutrophils # Seg Neutrophils # Man 28.6 H Lymphocytes # (Manual) Monocytes # (Manual) 1.1 H PT INR APTT POC ABG pH 7.243 L ABG pH POC ABG pCO2 68.0 H POC ABG pO2 389 H ABG pO2 ABG HCO3 ABG O2 Saturation ABG Base Excess ABG Hemoglobin Oxyhemoglobin Sodium Chloride Carbon Dioxide BUN Creatinine Glucose POC Glucose Lactic Acid 9.30 H* Magnesium AST ALT Total Creatine Kinase C-Reactive Protein Total Protein Albumin Urine WBC (Auto) Vancomycin Trough Salicylates Acetaminophen 10/09/18 10/09/18 10/09/18 12:12 15:28 16:27 WBC RBC Hgb Hct RDW Lymph % (Auto) [place] % (Auto) [place] # Seg Neutrophils % Seg Neuts % (Manual) Lymphocytes % (Manual) Seg Neutrophils # Seg Neutrophils # Man Lymphocytes # (Manual) Monocytes # (Manual) PT INR APTT POC ABG pH 7.598 H ABG pH POC ABG pCO2 POC ABG pO2 61 L ABG pO2 ABG HCO3 ABG O2 Saturation ABG Base Excess ABG Hemoglobin Oxyhemoglobin Sodium Chloride Carbon Dioxide BUN Creatinine Glucose POC Glucose 173 H Lactic Acid Magnesium AST ALT Total Creatine Kinase C-Reactive Protein Total Protein Albumin Urine WBC (Auto) 8.0 H Vancomycin Trough Salicylates Acetaminophen 10/09/18 10/09/18 10/09/18 16:44 16:44 18:38 WBC RBC Hgb Hct RDW Lymph % (Auto) [place] % (Auto) [place] # Seg Neutrophils % Seg Neuts % (Manual) Lymphocytes % (Manual) Seg Neutrophils # Seg Neutrophils # Man Lymphocytes # (Manual) Monocytes # (Manual) PT INR APTT POC ABG pH ABG pH POC ABG pCO2 POC ABG pO2 ABG pO2 ABG HCO3 ABG O2 Saturation ABG Base Excess ABG Hemoglobin Oxyhemoglobin Sodium Chloride Carbon Dioxide BUN Creatinine Glucose POC Glucose 177 H Lactic Acid 3.80 H* 3.70 H* Magnesium AST ALT Total Creatine Kinase C-Reactive Protein Total Protein Albumin Urine WBC (Auto) Vancomycin Trough Salicylates Acetaminophen 10/10/18 10/10/18 10/10/18 00:33 04:24 05:32 WBC RBC Hgb Hct RDW Lymph % (Auto) [place] % (Auto) [place] # Seg Neutrophils % Seg Neuts % (Manual) Lymphocytes % (Manual) Seg Neutrophils # Seg Neutrophils # Man Lymphocytes # (Manual) Monocytes # (Manual) PT INR APTT POC ABG pH 7.602 H ABG pH POC ABG pCO2 POC ABG pO2 170 H ABG pO2 ABG HCO3 ABG O2 Saturation ABG Base Excess ABG Hemoglobin Oxyhemoglobin Sodium Chloride Carbon Dioxide BUN Creatinine Glucose POC Glucose 177 H 190 H Lactic Acid Magnesium AST ALT Total Creatine Kinase C-Reactive Protein Total Protein Albumin Urine WBC (Auto) Vancomycin Trough Salicylates Acetaminophen 10/10/18 10/10/18 10/10/18 07:54 07:54 12:18 WBC 38.6 H RBC Hgb Hct RDW Lymph % (Auto) [place] % (Auto) [place] # Seg Neutrophils % Seg Neuts % (Manual) Lymphocytes % (Manual) Seg Neutrophils # Seg Neutrophils # Man Lymphocytes # (Manual) Monocytes # (Manual) PT INR APTT POC ABG pH ABG pH POC ABG pCO2 POC ABG pO2 ABG pO2 ABG HCO3 ABG O2 Saturation ABG Base Excess ABG Hemoglobin Oxyhemoglobin Sodium Chloride Carbon Dioxide BUN 31 H Creatinine Glucose 124 H POC Glucose 151 H Lactic Acid Magnesium AST ALT Total Creatine Kinase C-Reactive Protein Total Protein Albumin Urine WBC (Auto) Vancomycin Trough Salicylates Acetaminophen 10/10/18 10/10/18 10/11/18 18:17 23:09 03:40 WBC RBC Hgb Hct RDW Lymph % (Auto) [place] % (Auto) [place] # Seg Neutrophils % Seg Neuts % (Manual) Lymphocytes % (Manual) Seg Neutrophils # Seg Neutrophils # Man Lymphocytes # (Manual) Monocytes # (Manual) PT INR APTT POC ABG pH ABG pH POC ABG pCO2 POC ABG pO2 ABG pO2 91.1 H ABG HCO3 28.8 H ABG O2 Saturation ABG Base Excess ABG Hemoglobin 7.6 L Oxyhemoglobin Sodium Chloride Carbon Dioxide BUN Creatinine Glucose POC Glucose 132 H 124 H Lactic Acid Magnesium AST ALT Total Creatine Kinase C-Reactive Protein Total Protein Albumin Urine WBC (Auto) Vancomycin Trough Salicylates Acetaminophen 10/11/18 10/11/18 10/11/18 04:45 04:45 06:50 WBC 25.8 H RBC 3.41 L Hgb Hct RDW Lymph % (Auto) [place] % (Auto) [place] # Seg Neutrophils % Seg Neuts % (Manual) 83.0 H Lymphocytes % (Manual) Seg Neutrophils # Seg Neutrophils # Man 21.4 H Lymphocytes # (Manual) Monocytes # (Manual) PT INR APTT POC ABG pH ABG pH POC ABG pCO2 POC ABG pO2 ABG pO2 ABG HCO3 ABG O2 Saturation ABG Base Excess ABG Hemoglobin Oxyhemoglobin Sodium Chloride Carbon Dioxide BUN 26 H Creatinine 0.6 L Glucose 134 H POC Glucose 134 H Lactic Acid Magnesium AST ALT Total Creatine Kinase C-Reactive Protein Total Protein Albumin Urine WBC (Auto) Vancomycin Trough Salicylates Acetaminophen 10/11/18 10/11/18 10/12/18 13:10 18:08 00:25 WBC RBC Hgb Hct RDW Lymph % (Auto) [place] % (Auto) [place] # Seg Neutrophils % Seg Neuts % (Manual) Lymphocytes % (Manual) Seg Neutrophils # Seg Neutrophils # Man Lymphocytes # (Manual) Monocytes # (Manual) PT INR APTT POC ABG pH ABG pH POC ABG pCO2 POC ABG pO2 ABG pO2 ABG HCO3 ABG O2 Saturation ABG Base Excess ABG Hemoglobin Oxyhemoglobin Sodium Chloride Carbon Dioxide BUN Creatinine Glucose POC Glucose 160 H 166 H 136 H Lactic Acid Magnesium AST ALT Total Creatine Kinase C-Reactive Protein Total Protein Albumin Urine WBC (Auto) Vancomycin Trough Salicylates Acetaminophen 10/12/18 10/12/18 10/12/18 03:56 04:17 04:17 WBC 19.2 H RBC 3.04 L Hgb 8.9 L Hct 27.2 L RDW Lymph % (Auto) 8.5 L [place] % (Auto) [place] # 1.4 H Seg Neutrophils % 84.2 H Seg Neuts % (Manual) Lymphocytes % (Manual) Seg Neutrophils # 16.2 H Seg Neutrophils # Man Lymphocytes # (Manual) Monocytes # (Manual) PT INR APTT POC ABG pH ABG pH POC ABG pCO2 POC ABG pO2 ABG pO2 77.9 L ABG HCO3 29.4 H ABG O2 Saturation ABG Base Excess 4.4 H ABG Hemoglobin 10.2 L Oxyhemoglobin 94.7 L Sodium Chloride Carbon Dioxide BUN Creatinine 0.5 L Glucose 139 H POC Glucose Lactic Acid Magnesium AST ALT Total Creatine Kinase C-Reactive Protein Total Protein Albumin Urine WBC (Auto) Vancomycin Trough Salicylates Acetaminophen 10/12/18 10/12/18 10/12/18 05:51 11:46 13:03 WBC RBC Hgb Hct RDW Lymph % (Auto) [place] % (Auto) [place] # Seg Neutrophils % Seg Neuts % (Manual) Lymphocytes % (Manual) Seg Neutrophils # Seg Neutrophils # Man Lymphocytes # (Manual) Monocytes # (Manual) PT INR APTT POC ABG pH ABG pH POC ABG pCO2 POC ABG pO2 ABG pO2 ABG HCO3 ABG O2 Saturation ABG Base Excess ABG Hemoglobin Oxyhemoglobin Sodium Chloride Carbon Dioxide BUN Creatinine Glucose POC Glucose 163 H 162 H Lactic Acid Magnesium AST ALT Total Creatine Kinase C-Reactive Protein 2.70 H Total Protein Albumin Urine WBC (Auto) Vancomycin Trough Salicylates Acetaminophen 10/12/18 10/12/18 10/12/18 17:44 22:33 23:54 WBC RBC Hgb Hct RDW Lymph % (Auto) [place] % (Auto) [place] # Seg Neutrophils % Seg Neuts % (Manual) Lymphocytes % (Manual) Seg Neutrophils # Seg Neutrophils # Man Lymphocytes # (Manual) Monocytes # (Manual) PT INR APTT POC ABG pH ABG pH POC ABG pCO2 POC ABG pO2 ABG pO2 ABG HCO3 ABG O2 Saturation ABG Base Excess ABG Hemoglobin Oxyhemoglobin Sodium Chloride Carbon Dioxide BUN Creatinine Glucose POC Glucose 143 H 180 H Lactic Acid Magnesium AST ALT Total Creatine Kinase C-Reactive Protein Total Protein Albumin Urine WBC (Auto) Vancomycin Trough 4.8 L Salicylates Acetaminophen 10/13/18 10/13/18 10/13/18 02:30 02:30 03:10 WBC 19.8 H RBC 3.12 L Hgb 9.2 L Hct 28.2 L RDW Lymph % (Auto) 8.1 L [place] % (Auto) 8.0 H [place] # 1.6 H Seg Neutrophils % 83.2 H Seg Neuts % (Manual) Lymphocytes % (Manual) Seg Neutrophils # 16.5 H Seg Neutrophils # Man Lymphocytes # (Manual) Monocytes # (Manual) PT INR APTT POC ABG pH ABG pH POC ABG pCO2 POC ABG pO2 ABG pO2 ABG HCO3 32.9 H ABG O2 Saturation ABG Base Excess 7.2 H ABG Hemoglobin 10.8 L Oxyhemoglobin Sodium Chloride Carbon Dioxide BUN Creatinine 0.3 L Glucose 139 H POC Glucose Lactic Acid Magnesium AST ALT Total Creatine Kinase C-Reactive Protein Total Protein Albumin Urine WBC (Auto) Vancomycin Trough Salicylates Acetaminophen 10/13/18 10/13/18 10/13/18 05:17 11:52 17:18 WBC RBC Hgb Hct RDW Lymph % (Auto) [place] % (Auto) [place] # Seg Neutrophils % Seg Neuts % (Manual) Lymphocytes % (Manual) Seg Neutrophils # Seg Neutrophils # Man Lymphocytes # (Manual) Monocytes # (Manual) PT INR APTT POC ABG pH ABG pH POC ABG pCO2 56.7 H POC ABG pO2 63 L ABG pO2 ABG HCO3 ABG O2 Saturation ABG Base Excess ABG Hemoglobin Oxyhemoglobin Sodium Chloride Carbon Dioxide BUN Creatinine Glucose POC Glucose 192 H 200 H Lactic Acid Magnesium AST ALT Total Creatine Kinase C-Reactive Protein Total Protein Albumin Urine WBC (Auto) Vancomycin Trough Salicylates Acetaminophen 10/13/18 10/14/18 10/14/18 17:53 00:00 03:55 WBC RBC Hgb Hct RDW Lymph % (Auto) [place] % (Auto) [place] # Seg Neutrophils % Seg Neuts % (Manual) Lymphocytes % (Manual) Seg Neutrophils # Seg Neutrophils # Man Lymphocytes # (Manual) Monocytes # (Manual) PT INR APTT POC ABG pH ABG pH POC ABG pCO2 POC ABG pO2 ABG pO2 ABG HCO3 34.1 H ABG O2 Saturation ABG Base Excess 8.4 H ABG Hemoglobin 10.6 L Oxyhemoglobin 94.8 L Sodium Chloride Carbon Dioxide BUN Creatinine Glucose POC Glucose 215 H 236 H Lactic Acid Magnesium AST ALT Total Creatine Kinase C-Reactive Protein Total Protein Albumin Urine WBC (Auto) Vancomycin Trough Salicylates Acetaminophen 10/14/18 10/14/18 10/14/18 05:00 08:05 08:05 WBC 16.8 H RBC 3.27 L Hgb 9.8 L Hct 29.7 L RDW 13.1 L Lymph % (Auto) 7.5 L [place] % (Auto) 8.6 H [place] # 1.4 H Seg Neutrophils % 82.4 H Seg Neuts % (Manual) Lymphocytes % (Manual) Seg Neutrophils # 13.8 H Seg Neutrophils # Man Lymphocytes # (Manual) Monocytes # (Manual) PT INR APTT POC ABG pH ABG pH POC ABG pCO2 POC ABG pO2 ABG pO2 ABG HCO3 ABG O2 Saturation ABG Base Excess ABG Hemoglobin Oxyhemoglobin Sodium Chloride Carbon Dioxide 33 H BUN Creatinine 0.3 L Glucose 140 H POC Glucose 170 H Lactic Acid Magnesium AST ALT Total Creatine Kinase C-Reactive Protein Total Protein Albumin Urine WBC (Auto) Vancomycin Trough Salicylates Acetaminophen 10/14/18 10/14/18 10/14/18 12:04 14:06 18:04 WBC RBC Hgb Hct RDW Lymph % (Auto) [place] % (Auto) [place] # Seg Neutrophils % Seg Neuts % (Manual) Lymphocytes % (Manual) Seg Neutrophils # Seg Neutrophils # Man Lymphocytes # (Manual) Monocytes # (Manual) PT INR APTT POC ABG pH 7.330 L ABG pH POC ABG pCO2 67.6 H POC ABG pO2 75 L ABG pO2 ABG HCO3 ABG O2 Saturation ABG Base Excess ABG Hemoglobin Oxyhemoglobin Sodium Chloride Carbon Dioxide BUN Creatinine Glucose POC Glucose 202 H 189 H Lactic Acid Magnesium AST ALT Total Creatine Kinase C-Reactive Protein Total Protein Albumin Urine WBC (Auto) Vancomycin Trough Salicylates Acetaminophen 10/14/18 10/15/18 10/15/18 23:16 04:58 05:03 WBC 18.0 H RBC 3.36 L Hgb Hct RDW Lymph % (Auto) 7.5 L [place] % (Auto) [place] # 1.3 H Seg Neutrophils % 83.2 H Seg Neuts % (Manual) Lymphocytes % (Manual) Seg Neutrophils # 15.0 H Seg Neutrophils # Man Lymphocytes # (Manual) Monocytes # (Manual) PT INR APTT POC ABG pH ABG pH POC ABG pCO2 54.9 H POC ABG pO2 72 L ABG pO2 ABG HCO3 ABG O2 Saturation ABG Base Excess ABG Hemoglobin Oxyhemoglobin Sodium Chloride Carbon Dioxide BUN Creatinine Glucose POC Glucose 187 H Lactic Acid Magnesium AST ALT Total Creatine Kinase C-Reactive Protein Total Protein Albumin Urine WBC (Auto) Vancomycin Trough Salicylates Acetaminophen 10/15/18 10/15/18 10/15/18 05:03 05:54 11:53 WBC RBC Hgb Hct RDW Lymph % (Auto) [place] % (Auto) [place] # Seg Neutrophils % Seg Neuts % (Manual) Lymphocytes % (Manual) Seg Neutrophils # Seg Neutrophils # Man Lymphocytes # (Manual) Monocytes # (Manual) PT INR APTT POC ABG pH ABG pH POC ABG pCO2 POC ABG pO2 ABG pO2 ABG HCO3 ABG O2 Saturation ABG Base Excess ABG Hemoglobin Oxyhemoglobin Sodium Chloride Carbon Dioxide 33 H BUN 19 H Creatinine 0.3 L Glucose 161 H POC Glucose 191 H 188 H Lactic Acid Magnesium AST ALT Total Creatine Kinase C-Reactive Protein Total Protein Albumin Urine WBC (Auto) Vancomycin Trough Salicylates Acetaminophen 10/15/18 10/15/18 10/16/18 17:30 23:15 05:05 WBC RBC Hgb Hct RDW Lymph % (Auto) [place] % (Auto) [place] # Seg Neutrophils % Seg Neuts % (Manual) Lymphocytes % (Manual) Seg Neutrophils # Seg Neutrophils # Man Lymphocytes # (Manual) Monocytes # (Manual) PT INR APTT POC ABG pH ABG pH 7.452 H POC ABG pCO2 POC ABG pO2 ABG pO2 66.6 L ABG HCO3 33.3 H ABG O2 Saturation 94.0 L ABG Base Excess 8.4 H ABG Hemoglobin 8.7 L Oxyhemoglobin 92.1 L Sodium Chloride Carbon Dioxide BUN Creatinine Glucose POC Glucose 178 H 177 H Lactic Acid Magnesium AST ALT Total Creatine Kinase C-Reactive Protein Total Protein Albumin Urine WBC (Auto) Vancomycin Trough Salicylates Acetaminophen 10/16/18 10/16/18 10/16/18 05:12 05:12 05:49 WBC 21.9 H RBC 3.62 L Hgb Hct RDW Lymph % (Auto) [place] % (Auto) [place] # Seg Neutrophils % Seg Neuts % (Manual) 93.0 H Lymphocytes % (Manual) 1.0 L Seg Neutrophils # Seg Neutrophils # Man 20.4 H Lymphocytes # (Manual) 0.2 L Monocytes # (Manual) 0.9 H PT INR APTT POC ABG pH ABG pH POC ABG pCO2 POC ABG pO2 ABG pO2 ABG HCO3 ABG O2 Saturation ABG Base Excess ABG Hemoglobin Oxyhemoglobin Sodium 136 L Chloride 96.3 L Carbon Dioxide 34 H BUN 20 H Creatinine 0.3 L Glucose 183 H POC Glucose 187 H Lactic Acid Magnesium AST ALT Total Creatine Kinase C-Reactive Protein Total Protein Albumin Urine WBC (Auto) Vancomycin Trough Salicylates Acetaminophen 10/16/18 10/16/18 10/16/18 11:25 17:41 23:08 WBC RBC Hgb Hct RDW Lymph % (Auto) [place] % (Auto) [place] # Seg Neutrophils % Seg Neuts % (Manual) Lymphocytes % (Manual) Seg Neutrophils # Seg Neutrophils # Man Lymphocytes # (Manual) Monocytes # (Manual) PT INR APTT POC ABG pH ABG pH POC ABG pCO2 POC ABG pO2 ABG pO2 ABG HCO3 ABG O2 Saturation ABG Base Excess ABG Hemoglobin Oxyhemoglobin Sodium Chloride Carbon Dioxide BUN Creatinine Glucose POC Glucose 200 H 184 H 166 H Lactic Acid Magnesium AST ALT Total Creatine Kinase C-Reactive Protein Total Protein Albumin Urine WBC (Auto) Vancomycin Trough Salicylates Acetaminophen 10/17/18 10/17/18 10/17/18 04:32 04:32 05:12 WBC 19.9 H RBC 3.53 L Hgb Hct RDW Lymph % (Auto) 6.8 L [place] % (Auto) 7.8 H [place] # 1.5 H Seg Neutrophils % 84.2 H Seg Neuts % (Manual) Lymphocytes % (Manual) Seg Neutrophils # 16.7 H Seg Neutrophils # Man Lymphocytes # (Manual) Monocytes # (Manual) PT INR APTT POC ABG pH ABG pH POC ABG pCO2 POC ABG pO2 ABG pO2 ABG HCO3 ABG O2 Saturation ABG Base Excess ABG Hemoglobin Oxyhemoglobin Sodium Chloride Carbon Dioxide 32 H BUN 20 H Creatinine 0.3 L Glucose 155 H POC Glucose 164 H Lactic Acid Magnesium AST ALT Total Creatine Kinase C-Reactive Protein Total Protein Albumin Urine WBC (Auto) Vancomycin Trough Salicylates Acetaminophen 10/17/18 12:24 WBC RBC Hgb Hct RDW Lymph % (Auto) [place] % (Auto) [place] # Seg Neutrophils % Seg Neuts % (Manual) Lymphocytes % (Manual) Seg Neutrophils # Seg Neutrophils # Man Lymphocytes # (Manual) Monocytes # (Manual) PT INR APTT POC ABG pH ABG pH POC ABG pCO2 POC ABG pO2 ABG pO2 ABG HCO3 ABG O2 Saturation ABG Base Excess ABG Hemoglobin Oxyhemoglobin Sodium Chloride Carbon Dioxide BUN Creatinine Glucose POC Glucose 169 H Lactic Acid Magnesium AST ALT Total Creatine Kinase C-Reactive Protein Total Protein Albumin Urine WBC (Auto) Vancomycin Trough Salicylates Acetaminophen Allied health notes reviewed: nursing
[2018-10-17] MEDS ORDERED: DIPRIVAN 10 MG/ML 1,000 MG/100 ML BOTTLE IV SCH (14:00)
--- NOTE | 2018-10-17 14:37 | Event Note ---
Date: 10/17/18 developed increased work of breathing with FiO2 requirements of 100% acutely exam consistent with lung collapse CXR revealed complete left lung atelectasis - chandrakant perform emergent bronchoscopy
[2018-10-17] MEDS ORDERED: NACL 0.9% IR ONE (14:45)
[2018-10-17] MEDS ORDERED: XYLOCAINE 1% 20 mL INFILTRATI ONE (14:45)
--- NOTE | 2018-10-17 14:55 | Progress Note ---
Assessment and Plan Cultures: 10/09 blood cultures: NGTD 10/09 urine cultures: Negative 10/09 sputum cultures: Negative A/P: 68 yo F PMHx HTN, GERD, SVT/Atrial Flutter on AC admitted with cardiac arrest, now with aspiration pneumonia 1. Septic shock secondary to aspiration pneumonia - Present with tachycardia and leukocytosis. While antibiotics are unlikely to improve her outcome given the anoxic brain injury, can continue them for now. CXR with worsening, though may just be evolution of disease. Ordered MRSA nares. 2. Cardiogenic shock - s/p resuscitation 3. Anoxic brain injury - poor prognosis for meaningful neurological recovery. 4. HTN 5. GERD 6. Fevers - Likely some component of central fevers given severe anoxic brain injury. 7. Acute respiratory failure with hypoxia - now with L lung collapse, for emergent bronchoscopy. Will evaluate post-reinflation xrays for progress on #1 Recs: - continue metronidazole 500mg TID - continue cefepime 2g q8h - expected duration: 8 days. Stop date: 10/18 - Prognosis: grim Thank you for the consult, we will continue to follow. Mumtaz Webster MD [facility], [facility] ([facility]) M: [phone] O: [phone] F: [phone] Subjective Date of service: 10/17/18 Principal diagnosis: Cardiac arrest with ROSC; Ac hypoxemic resp failure; Ac. encephalopathy Interval history: Remains non-responsive. CXR with left lung white out due to lung collapse. For emergent bronchoscopy. Objective - Exam Narrative Exam: Constitutional: intubated, non-responsive. Head, Ears, Nose: Normocephalic, atraumatic. External ears, nose normal Eyes: Conjunctivae/corneas clear. No icterus. No ptosis. Neck: Supple, no meningeal signs Oral: dentition fair, no thrush Cardiovascular: S1, S2 normal. Respiratory: Good air entry, clear to auscultation bilaterally GI: Soft, non-tender; bowel sounds normal. No peritoneal signs. Musculoskeletal: No pedal edema, no cyanosis. Skin: No rash or abscess Hem/Lymphatic: No palpable cervical or supraclavicular nodes. No lymphangitis Neurological: intubated, non-responsive - Constitutional Vitals: Vital Signs Temp Pulse Resp BP Pulse Ox 97.3 F L 76 8 L 209/74 98 10/17/18 11:00 10/17/18 13:03 10/17/18 12:03 10/17/18 13:03 10/17/18 12:03 Temperature -Last 24 Hours Temperature 97.3 F Temperature 98.2 F Temperature 98.2 F Temperature 98.9 F Temperature 98.8 F Temperature 98.9 F Temperature 97.7 F Temperature 97.7 F - Labs CBC & Chem 7: 10/17/18 04:32 10/17/18 04:32 Labs: Abnormal lab results 10/16/18 10/16/18 10/17/18 Range/Units 17:41 23:08 04:32 WBC 19.9 H (4.5-11.0) K/mm3 RBC 3.53 L (3.65-5.03) M/mm3 Lymph % (Auto) 6.8 L (13.4-35.0) % Bibb % (Auto) 7.8 H (0.0-7.3) % Bibb # 1.5 H (0.0-0.8) K/mm3 Seg Neutrophils % 84.2 H (40.0-70.0) % Seg Neutrophils # 16.7 H (1.8-7.7) K/mm3 POC ABG pH (7.35-7.45) POC ABG pCO2 (35-45) POC ABG pO2 (80-105) Carbon Dioxide (22-30) mmol/L BUN (7-17) mg/dL Creatinine (0.7-1.2) mg/dL Glucose (65-100) mg/dL POC Glucose 184 H 166 H (70-105) 10/17/18 10/17/18 10/17/18 Range/Units 04:32 05:12 12:24 WBC (4.5-11.0) K/mm3 RBC (3.65-5.03) M/mm3 Lymph % (Auto) (13.4-35.0) % Bibb % (Auto) (0.0-7.3) % Bibb # (0.0-0.8) K/mm3 Seg Neutrophils % (40.0-70.0) % Seg Neutrophils # (1.8-7.7) K/mm3 POC ABG pH (7.35-7.45) POC ABG pCO2 (35-45) POC ABG pO2 (80-105) Carbon Dioxide 32 H (22-30) mmol/L BUN 20 H (7-17) mg/dL Creatinine 0.3 L (0.7-1.2) mg/dL Glucose 155 H (65-100) mg/dL POC Glucose 164 H 169 H (70-105) 10/17/18 Range/Units 13:21 WBC (4.5-11.0) K/mm3 RBC (3.65-5.03) M/mm3 Lymph % (Auto) (13.4-35.0) % Bibb % (Auto) (0.0-7.3) % Bibb # (0.0-0.8) K/mm3 Seg Neutrophils % (40.0-70.0) % Seg Neutrophils # (1.8-7.7) K/mm3 POC ABG pH 7.337 L (7.35-7.45) POC ABG pCO2 68.3 H (35-45) POC ABG pO2 79 L (80-105) Carbon Dioxide (22-30) mmol/L BUN (7-17) mg/dL Creatinine (0.7-1.2) mg/dL Glucose (65-100) mg/dL POC Glucose (70-105)
--- NOTE | 2018-10-17 15:59 | Procedure Note ---
Date of procedure: 10/17/18 Pre-op diagnosis: Left lung complete atelectasis Post-op diagnosis: same Procedure: FIBEROPTIC BRONCHOSCOPY WITH BAL (full dictation # [id number]) Please see dictated notes
--- NOTE | 2018-10-17 16:10 | Progress Note ---
Assessment and Plan Patient is a 68 old woman with a history of hypertension, atrial fibrillation on anticoagulation, GERD. The patient was found down, and was found to be in cardiac arrest. The approximate time duration of cardiac arrest was approximate 45-50 minutes, prior to return of spontaneous circulation. 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 Plan: 1. Anoxic brain injury: - Currently, the patient displays intact brainstem reflexes, as pupillary and cough reflexes are intact. Corneal reflexes are not intact today, however they were intact yesterday. Patient has decreased w/d to pain as compared to yesterday. MRI revealed evidence of anoxic brain injury with cortical riveting. EEG done previously reportedly showed generalized slowing. - Family meeting took place today, and we discussed at length regarding patient's prognosis, including acute change of left lung atelectasis. Patient's family stated that they would like to make the patient currently DO NOT RESUSCITATE. They also stated that they would like to discuss the possibility further care with hospice team. They stated that they have not yet decided whether or not they would like for the mother to transition to tracheostomy and PEG tube placement. I discussed at length with the patient's family at bedside regarding the patient's prognosis. It was discussed that the patient is not currently brain- given the patient's current clinical exam as well as findings on EEG. It was further discussed that the patient's prognosis is indeterminate at this time, given the evidence of anoxic brain injury on MRI. It was also mentioned that, with time, the patient may have some element of neurologic recovery, however the extent of which is difficult to predict. I further discussed transitioning to a tracheostomy and a PEG tube for continued care. All questions were answered and concerns were clarified and addressed with family. - Will continue to follow the patient. -Thank you for allowing me to take part in the care of this patient. Joon Sr MD Neurology Subjective Date of service: 10/17/18 Principal diagnosis: Cardiac arrest with ROSC; Ac hypoxemic resp failure; Ac. encephalopathy Interval history: Patient developed left lung atelectasis today. Plan for emergent bronchoscopy by ICU team. Objective - Exam Narrative Exam: Patient is intubated, comatose. Pupils equal, round, sluggishly reactive to light, corneal reflexes absent, cough reflex intact. No withdrawal to pain stimulation in any extremities. Reflexes 2+ throughout. No spontaneous movement noted. - Vital Sign Vital Signs - 12hr 10/17/18 10/17/18 10/17/18 05:01 05:10 05:41 Temperature Pulse Rate 70 65 76 Pulse Rate [ From Monitor] Respiratory 16 Rate Blood Pressure 147/53 154/62 O2 Sat by Pulse 100 100 Oximetry 10/17/18 10/17/18 10/17/18 06:00 07:00 07:56 Temperature 98.2 F Pulse Rate 78 67 70 Pulse Rate [ From Monitor] Respiratory 14 15 Rate Blood Pressure 152/57 121/47 151/57 O2 Sat by Pulse 100 100 100 Oximetry 10/17/18 10/17/18 10/17/18 08:00 09:00 09:19 Temperature 98.2 F Pulse Rate 69 71 73 Pulse Rate [ 69 From Monitor] Respiratory 14 13 Rate Blood Pressure 151/57 138/52 138/52 O2 Sat by Pulse 100 100 Oximetry 10/17/18 10/17/18 10/17/18 09:20 10:00 11:00 Temperature 97.3 F L Pulse Rate 74 66 71 Pulse Rate [ From Monitor] Respiratory 11 L 15 Rate Blood Pressure 138/52 124/50 130/51 O2 Sat by Pulse 100 95 Oximetry 10/17/18 10/17/18 10/17/18 12:00 12:03 13:03 Temperature Pulse Rate 74 76 76 Pulse Rate [ From Monitor] Respiratory 16 8 L Rate Blood Pressure 135/54 209/74 O2 Sat by Pulse 94 98 Oximetry - General Apperance Constitutional: acutely ill - EENT EENT: ATNC, mucous membranes moist - Respiratory Respiratory: decreased breath sounds (L>R) - Cardiovascular Cardiovascular: regular rate, normal S1, normal S2 Extremities: no peripheral edema bilat, no clubbing, cyanosis - Gastrointestinal Gastrointestinal: normoactive bowel sounds, soft, non-tender - Integumentary Integumentary: normal - Laboratory Findings CBC and BMP: 10/17/18 04:32 10/17/18 04:32 Abnormal Lab Findings: Abnormal Labs 10/09/18 10/09/18 10/09/18 10:14 10:50 10:50 WBC RBC Hgb Hct RDW Lymph % (Auto) [place] % (Auto) [place] # Seg Neutrophils % Seg Neuts % (Manual) Lymphocytes % (Manual) Seg Neutrophils # Seg Neutrophils # Man Lymphocytes # (Manual) Monocytes # (Manual) PT 16.6 H INR 1.38 H APTT 39.4 H POC ABG pH ABG pH POC ABG pCO2 POC ABG pO2 ABG pO2 ABG HCO3 ABG O2 Saturation ABG Base Excess ABG Hemoglobin Oxyhemoglobin Sodium Chloride 90.3 L Carbon Dioxide BUN 21 H Creatinine Glucose 315 H POC Glucose 344 H Lactic Acid Magnesium AST 51 H ALT 67 H Total Creatine Kinase C-Reactive Protein Total Protein 5.3 L Albumin 3.0 L Urine WBC (Auto) Vancomycin Trough Salicylates Acetaminophen 10/09/18 10/09/18 10/09/18 10:50 10:50 10:50 WBC RBC Hgb Hct RDW Lymph % (Auto) [place] % (Auto) [place] # Seg Neutrophils % Seg Neuts % (Manual) Lymphocytes % (Manual) Seg Neutrophils # Seg Neutrophils # Man Lymphocytes # (Manual) Monocytes # (Manual) PT INR APTT POC ABG pH ABG pH POC ABG pCO2 POC ABG pO2 ABG pO2 ABG HCO3 ABG O2 Saturation ABG Base Excess ABG Hemoglobin Oxyhemoglobin Sodium Chloride Carbon Dioxide BUN Creatinine Glucose POC Glucose Lactic Acid Magnesium 3.70 H AST ALT Total Creatine Kinase 171 H C-Reactive Protein Total Protein Albumin Urine WBC (Auto) Vancomycin Trough Salicylates < 0.3 L Acetaminophen < 5.0 L 10/09/18 10/09/18 10/09/18 10:50 10:55 11:38 WBC 31.3 H RBC Hgb Hct RDW 13.0 L Lymph % (Auto) [place] % (Auto) [place] # Seg Neutrophils % Seg Neuts % (Manual) 91.5 H Lymphocytes % (Manual) 4.5 L Seg Neutrophils # Seg Neutrophils # Man 28.6 H Lymphocytes # (Manual) Monocytes # (Manual) 1.1 H PT INR APTT POC ABG pH 7.243 L ABG pH POC ABG pCO2 68.0 H POC ABG pO2 389 H ABG pO2 ABG HCO3 ABG O2 Saturation ABG Base Excess ABG Hemoglobin Oxyhemoglobin Sodium Chloride Carbon Dioxide BUN Creatinine Glucose POC Glucose Lactic Acid 9.30 H* Magnesium AST ALT Total Creatine Kinase C-Reactive Protein Total Protein Albumin Urine WBC (Auto) Vancomycin Trough Salicylates Acetaminophen 10/09/18 10/09/18 10/09/18 12:12 15:28 16:27 WBC RBC Hgb Hct RDW Lymph % (Auto) [place] % (Auto) [place] # Seg Neutrophils % Seg Neuts % (Manual) Lymphocytes % (Manual) Seg Neutrophils # Seg Neutrophils # Man Lymphocytes # (Manual) Monocytes # (Manual) PT INR APTT POC ABG pH 7.598 H ABG pH POC ABG pCO2 POC ABG pO2 61 L ABG pO2 ABG HCO3 ABG O2 Saturation ABG Base Excess ABG Hemoglobin Oxyhemoglobin Sodium Chloride Carbon Dioxide BUN Creatinine Glucose POC Glucose 173 H Lactic Acid Magnesium AST ALT Total Creatine Kinase C-Reactive Protein Total Protein Albumin Urine WBC (Auto) 8.0 H Vancomycin Trough Salicylates Acetaminophen 10/09/18 10/09/18 10/09/18 16:44 16:44 18:38 WBC RBC Hgb Hct RDW Lymph % (Auto) [place] % (Auto) [place] # Seg Neutrophils % Seg Neuts % (Manual) Lymphocytes % (Manual) Seg Neutrophils # Seg Neutrophils # Man Lymphocytes # (Manual) Monocytes # (Manual) PT INR APTT POC ABG pH ABG pH POC ABG pCO2 POC ABG pO2 ABG pO2 ABG HCO3 ABG O2 Saturation ABG Base Excess ABG Hemoglobin Oxyhemoglobin Sodium Chloride Carbon Dioxide BUN Creatinine Glucose POC Glucose 177 H Lactic Acid 3.80 H* 3.70 H* Magnesium AST ALT Total Creatine Kinase C-Reactive Protein Total Protein Albumin Urine WBC (Auto) Vancomycin Trough Salicylates Acetaminophen 10/10/18 10/10/18 10/10/18 00:33 04:24 05:32 WBC RBC Hgb Hct RDW Lymph % (Auto) [place] % (Auto) [place] # Seg Neutrophils % Seg Neuts % (Manual) Lymphocytes % (Manual) Seg Neutrophils # Seg Neutrophils # Man Lymphocytes # (Manual) Monocytes # (Manual) PT INR APTT POC ABG pH 7.602 H ABG pH POC ABG pCO2 POC ABG pO2 170 H ABG pO2 ABG HCO3 ABG O2 Saturation ABG Base Excess ABG Hemoglobin Oxyhemoglobin Sodium Chloride Carbon Dioxide BUN Creatinine Glucose POC Glucose 177 H 190 H Lactic Acid Magnesium AST ALT Total Creatine Kinase C-Reactive Protein Total Protein Albumin Urine WBC (Auto) Vancomycin Trough Salicylates Acetaminophen 10/10/18 10/10/18 10/10/18 07:54 07:54 12:18 WBC 38.6 H RBC Hgb Hct RDW Lymph % (Auto) [place] % (Auto) [place] # Seg Neutrophils % Seg Neuts % (Manual) Lymphocytes % (Manual) Seg Neutrophils # Seg Neutrophils # Man Lymphocytes # (Manual) Monocytes # (Manual) PT INR APTT POC ABG pH ABG pH POC ABG pCO2 POC ABG pO2 ABG pO2 ABG HCO3 ABG O2 Saturation ABG Base Excess ABG Hemoglobin Oxyhemoglobin Sodium Chloride Carbon Dioxide BUN 31 H Creatinine Glucose 124 H POC Glucose 151 H Lactic Acid Magnesium AST ALT Total Creatine Kinase C-Reactive Protein Total Protein Albumin Urine WBC (Auto) Vancomycin Trough Salicylates Acetaminophen 10/10/18 10/10/18 10/11/18 18:17 23:09 03:40 WBC RBC Hgb Hct RDW Lymph % (Auto) [place] % (Auto) [place] # Seg Neutrophils % Seg Neuts % (Manual) Lymphocytes % (Manual) Seg Neutrophils # Seg Neutrophils # Man Lymphocytes # (Manual) Monocytes # (Manual) PT INR APTT POC ABG pH ABG pH POC ABG pCO2 POC ABG pO2 ABG pO2 91.1 H ABG HCO3 28.8 H ABG O2 Saturation ABG Base Excess ABG Hemoglobin 7.6 L Oxyhemoglobin Sodium Chloride Carbon Dioxide BUN Creatinine Glucose POC Glucose 132 H 124 H Lactic Acid Magnesium AST ALT Total Creatine Kinase C-Reactive Protein Total Protein Albumin Urine WBC (Auto) Vancomycin Trough Salicylates Acetaminophen 10/11/18 10/11/18 10/11/18 04:45 04:45 06:50 WBC 25.8 H RBC 3.41 L Hgb Hct RDW Lymph % (Auto) [place] % (Auto) [place] # Seg Neutrophils % Seg Neuts % (Manual) 83.0 H Lymphocytes % (Manual) Seg Neutrophils # Seg Neutrophils # Man 21.4 H Lymphocytes # (Manual) Monocytes # (Manual) PT INR APTT POC ABG pH ABG pH POC ABG pCO2 POC ABG pO2 ABG pO2 ABG HCO3 ABG O2 Saturation ABG Base Excess ABG Hemoglobin Oxyhemoglobin Sodium Chloride Carbon Dioxide BUN 26 H Creatinine 0.6 L Glucose 134 H POC Glucose 134 H Lactic Acid Magnesium AST ALT Total Creatine Kinase C-Reactive Protein Total Protein Albumin Urine WBC (Auto) Vancomycin Trough Salicylates Acetaminophen 10/11/18 10/11/18 10/12/18 13:10 18:08 00:25 WBC RBC Hgb Hct RDW Lymph % (Auto) [place] % (Auto) [place] # Seg Neutrophils % Seg Neuts % (Manual) Lymphocytes % (Manual) Seg Neutrophils # Seg Neutrophils # Man Lymphocytes # (Manual) Monocytes # (Manual) PT INR APTT POC ABG pH ABG pH POC ABG pCO2 POC ABG pO2 ABG pO2 ABG HCO3 ABG O2 Saturation ABG Base Excess ABG Hemoglobin Oxyhemoglobin Sodium Chloride Carbon Dioxide BUN Creatinine Glucose POC Glucose 160 H 166 H 136 H Lactic Acid Magnesium AST ALT Total Creatine Kinase C-Reactive Protein Total Protein Albumin Urine WBC (Auto) Vancomycin Trough Salicylates Acetaminophen 10/12/18 10/12/18 10/12/18 03:56 04:17 04:17 WBC 19.2 H RBC 3.04 L Hgb 8.9 L Hct 27.2 L RDW Lymph % (Auto) 8.5 L [place] % (Auto) [place] # 1.4 H Seg Neutrophils % 84.2 H Seg Neuts % (Manual) Lymphocytes % (Manual) Seg Neutrophils # 16.2 H Seg Neutrophils # Man Lymphocytes # (Manual) Monocytes # (Manual) PT INR APTT POC ABG pH ABG pH POC ABG pCO2 POC ABG pO2 ABG pO2 77.9 L ABG HCO3 29.4 H ABG O2 Saturation ABG Base Excess 4.4 H ABG Hemoglobin 10.2 L Oxyhemoglobin 94.7 L Sodium Chloride Carbon Dioxide BUN Creatinine 0.5 L Glucose 139 H POC Glucose Lactic Acid Magnesium AST ALT Total Creatine Kinase C-Reactive Protein Total Protein Albumin Urine WBC (Auto) Vancomycin Trough Salicylates Acetaminophen 10/12/18 10/12/18 10/12/18 05:51 11:46 13:03 WBC RBC Hgb Hct RDW Lymph % (Auto) [place] % (Auto) [place] # Seg Neutrophils % Seg Neuts % (Manual) Lymphocytes % (Manual) Seg Neutrophils # Seg Neutrophils # Man Lymphocytes # (Manual) Monocytes # (Manual) PT INR APTT POC ABG pH ABG pH POC ABG pCO2 POC ABG pO2 ABG pO2 ABG HCO3 ABG O2 Saturation ABG Base Excess ABG Hemoglobin Oxyhemoglobin Sodium Chloride Carbon Dioxide BUN Creatinine Glucose POC Glucose 163 H 162 H Lactic Acid Magnesium AST ALT Total Creatine Kinase C-Reactive Protein 2.70 H Total Protein Albumin Urine WBC (Auto) Vancomycin Trough Salicylates Acetaminophen 10/12/18 10/12/18 10/12/18 17:44 22:33 23:54 WBC RBC Hgb Hct RDW Lymph % (Auto) [place] % (Auto) [place] # Seg Neutrophils % Seg Neuts % (Manual) Lymphocytes % (Manual) Seg Neutrophils # Seg Neutrophils # Man Lymphocytes # (Manual) Monocytes # (Manual) PT INR APTT POC ABG pH ABG pH POC ABG pCO2 POC ABG pO2 ABG pO2 ABG HCO3 ABG O2 Saturation ABG Base Excess ABG Hemoglobin Oxyhemoglobin Sodium Chloride Carbon Dioxide BUN Creatinine Glucose POC Glucose 143 H 180 H Lactic Acid Magnesium AST ALT Total Creatine Kinase C-Reactive Protein Total Protein Albumin Urine WBC (Auto) Vancomycin Trough 4.8 L Salicylates Acetaminophen 10/13/18 10/13/18 10/13/18 02:30 02:30 03:10 WBC 19.8 H RBC 3.12 L Hgb 9.2 L Hct 28.2 L RDW Lymph % (Auto) 8.1 L [place] % (Auto) 8.0 H [place] # 1.6 H Seg Neutrophils % 83.2 H Seg Neuts % (Manual) Lymphocytes % (Manual) Seg Neutrophils # 16.5 H Seg Neutrophils # Man Lymphocytes # (Manual) Monocytes # (Manual) PT INR APTT POC ABG pH ABG pH POC ABG pCO2 POC ABG pO2 ABG pO2 ABG HCO3 32.9 H ABG O2 Saturation ABG Base Excess 7.2 H ABG Hemoglobin 10.8 L Oxyhemoglobin Sodium Chloride Carbon Dioxide BUN Creatinine 0.3 L Glucose 139 H POC Glucose Lactic Acid Magnesium AST ALT Total Creatine Kinase C-Reactive Protein Total Protein Albumin Urine WBC (Auto) Vancomycin Trough Salicylates Acetaminophen 10/13/18 10/13/18 10/13/18 05:17 11:52 17:18 WBC RBC Hgb Hct RDW Lymph % (Auto) [place] % (Auto) [place] # Seg Neutrophils % Seg Neuts % (Manual) Lymphocytes % (Manual) Seg Neutrophils # Seg Neutrophils # Man Lymphocytes # (Manual) Monocytes # (Manual) PT INR APTT POC ABG pH ABG pH POC ABG pCO2 56.7 H POC ABG pO2 63 L ABG pO2 ABG HCO3 ABG O2 Saturation ABG Base Excess ABG Hemoglobin Oxyhemoglobin Sodium Chloride Carbon Dioxide BUN Creatinine Glucose POC Glucose 192 H 200 H Lactic Acid Magnesium AST ALT Total Creatine Kinase C-Reactive Protein Total Protein Albumin Urine WBC (Auto) Vancomycin Trough Salicylates Acetaminophen 10/13/18 10/14/18 10/14/18 17:53 00:00 03:55 WBC RBC Hgb Hct RDW Lymph % (Auto) [place] % (Auto) [place] # Seg Neutrophils % Seg Neuts % (Manual) Lymphocytes % (Manual) Seg Neutrophils # Seg Neutrophils # Man Lymphocytes # (Manual) Monocytes # (Manual) PT INR APTT POC ABG pH ABG pH POC ABG pCO2 POC ABG pO2 ABG pO2 ABG HCO3 34.1 H ABG O2 Saturation ABG Base Excess 8.4 H ABG Hemoglobin 10.6 L Oxyhemoglobin 94.8 L Sodium Chloride Carbon Dioxide BUN Creatinine Glucose POC Glucose 215 H 236 H Lactic Acid Magnesium AST ALT Total Creatine Kinase C-Reactive Protein Total Protein Albumin Urine WBC (Auto) Vancomycin Trough Salicylates Acetaminophen 10/14/18 10/14/18 10/14/18 05:00 08:05 08:05 WBC 16.8 H RBC 3.27 L Hgb 9.8 L Hct 29.7 L RDW 13.1 L Lymph % (Auto) 7.5 L [place] % (Auto) 8.6 H [place] # 1.4 H Seg Neutrophils % 82.4 H Seg Neuts % (Manual) Lymphocytes % (Manual) Seg Neutrophils # 13.8 H Seg Neutrophils # Man Lymphocytes # (Manual) Monocytes # (Manual) PT INR APTT POC ABG pH ABG pH POC ABG pCO2 POC ABG pO2 ABG pO2 ABG HCO3 ABG O2 Saturation ABG Base Excess ABG Hemoglobin Oxyhemoglobin Sodium Chloride Carbon Dioxide 33 H BUN Creatinine 0.3 L Glucose 140 H POC Glucose 170 H Lactic Acid Magnesium AST ALT Total Creatine Kinase C-Reactive Protein Total Protein Albumin Urine WBC (Auto) Vancomycin Trough Salicylates Acetaminophen 10/14/18 10/14/18 10/14/18 12:04 14:06 18:04 WBC RBC Hgb Hct RDW Lymph % (Auto) [place] % (Auto) [place] # Seg Neutrophils % Seg Neuts % (Manual) Lymphocytes % (Manual) Seg Neutrophils # Seg Neutrophils # Man Lymphocytes # (Manual) Monocytes # (Manual) PT INR APTT POC ABG pH 7.330 L ABG pH POC ABG pCO2 67.6 H POC ABG pO2 75 L ABG pO2 ABG HCO3 ABG O2 Saturation ABG Base Excess ABG Hemoglobin Oxyhemoglobin Sodium Chloride Carbon Dioxide BUN Creatinine Glucose POC Glucose 202 H 189 H Lactic Acid Magnesium AST ALT Total Creatine Kinase C-Reactive Protein Total Protein Albumin Urine WBC (Auto) Vancomycin Trough Salicylates Acetaminophen 10/14/18 10/15/18 10/15/18 23:16 04:58 05:03 WBC 18.0 H RBC 3.36 L Hgb Hct RDW Lymph % (Auto) 7.5 L [place] % (Auto) [place] # 1.3 H Seg Neutrophils % 83.2 H Seg Neuts % (Manual) Lymphocytes % (Manual) Seg Neutrophils # 15.0 H Seg Neutrophils # Man Lymphocytes # (Manual) Monocytes # (Manual) PT INR APTT POC ABG pH ABG pH POC ABG pCO2 54.9 H POC ABG pO2 72 L ABG pO2 ABG HCO3 ABG O2 Saturation ABG Base Excess ABG Hemoglobin Oxyhemoglobin Sodium Chloride Carbon Dioxide BUN Creatinine Glucose POC Glucose 187 H Lactic Acid Magnesium AST ALT Total Creatine Kinase C-Reactive Protein Total Protein Albumin Urine WBC (Auto) Vancomycin Trough Salicylates Acetaminophen 10/15/18 10/15/18 10/15/18 05:03 05:54 11:53 WBC RBC Hgb Hct RDW Lymph % (Auto) [place] % (Auto) [place] # Seg Neutrophils % Seg Neuts % (Manual) Lymphocytes % (Manual) Seg Neutrophils # Seg Neutrophils # Man Lymphocytes # (Manual) Monocytes # (Manual) PT INR APTT POC ABG pH ABG pH POC ABG pCO2 POC ABG pO2 ABG pO2 ABG HCO3 ABG O2 Saturation ABG Base Excess ABG Hemoglobin Oxyhemoglobin Sodium Chloride Carbon Dioxide 33 H BUN 19 H Creatinine 0.3 L Glucose 161 H POC Glucose 191 H 188 H Lactic Acid Magnesium AST ALT Total Creatine Kinase C-Reactive Protein Total Protein Albumin Urine WBC (Auto) Vancomycin Trough Salicylates Acetaminophen 10/15/18 10/15/18 10/16/18 17:30 23:15 05:05 WBC RBC Hgb Hct RDW Lymph % (Auto) [place] % (Auto) [place] # Seg Neutrophils % Seg Neuts % (Manual) Lymphocytes % (Manual) Seg Neutrophils # Seg Neutrophils # Man Lymphocytes # (Manual) Monocytes # (Manual) PT INR APTT POC ABG pH ABG pH 7.452 H POC ABG pCO2 POC ABG pO2 ABG pO2 66.6 L ABG HCO3 33.3 H ABG O2 Saturation 94.0 L ABG Base Excess 8.4 H ABG Hemoglobin 8.7 L Oxyhemoglobin 92.1 L Sodium Chloride Carbon Dioxide BUN Creatinine Glucose POC Glucose 178 H 177 H Lactic Acid Magnesium AST ALT Total Creatine Kinase C-Reactive Protein Total Protein Albumin Urine WBC (Auto) Vancomycin Trough Salicylates Acetaminophen 10/16/18 10/16/18 10/16/18 05:12 05:12 05:49 WBC 21.9 H RBC 3.62 L Hgb Hct RDW Lymph % (Auto) [place] % (Auto) [place] # Seg Neutrophils % Seg Neuts % (Manual) 93.0 H Lymphocytes % (Manual) 1.0 L Seg Neutrophils # Seg Neutrophils # Man 20.4 H Lymphocytes # (Manual) 0.2 L Monocytes # (Manual) 0.9 H PT INR APTT POC ABG pH ABG pH POC ABG pCO2 POC ABG pO2 ABG pO2 ABG HCO3 ABG O2 Saturation ABG Base Excess ABG Hemoglobin Oxyhemoglobin Sodium 136 L Chloride 96.3 L Carbon Dioxide 34 H BUN 20 H Creatinine 0.3 L Glucose 183 H POC Glucose 187 H Lactic Acid Magnesium AST ALT Total Creatine Kinase C-Reactive Protein Total Protein Albumin Urine WBC (Auto) Vancomycin Trough Salicylates Acetaminophen 10/16/18 10/16/18 10/16/18 11:25 17:41 23:08 WBC RBC Hgb Hct RDW Lymph % (Auto) [place] % (Auto) [place] # Seg Neutrophils % Seg Neuts % (Manual) Lymphocytes % (Manual) Seg Neutrophils # Seg Neutrophils # Man Lymphocytes # (Manual) Monocytes # (Manual) PT INR APTT POC ABG pH ABG pH POC ABG pCO2 POC ABG pO2 ABG pO2 ABG HCO3 ABG O2 Saturation ABG Base Excess ABG Hemoglobin Oxyhemoglobin Sodium Chloride Carbon Dioxide BUN Creatinine Glucose POC Glucose 200 H 184 H 166 H Lactic Acid Magnesium AST ALT Total Creatine Kinase C-Reactive Protein Total Protein Albumin Urine WBC (Auto) Vancomycin Trough Salicylates Acetaminophen 10/17/18 10/17/18 10/17/18 04:32 04:32 05:12 WBC 19.9 H RBC 3.53 L Hgb Hct RDW Lymph % (Auto) 6.8 L [place] % (Auto) 7.8 H [place] # 1.5 H Seg Neutrophils % 84.2 H Seg Neuts % (Manual) Lymphocytes % (Manual) Seg Neutrophils # 16.7 H Seg Neutrophils # Man Lymphocytes # (Manual) Monocytes # (Manual) PT INR APTT POC ABG pH ABG pH POC ABG pCO2 POC ABG pO2 ABG pO2 ABG HCO3 ABG O2 Saturation ABG Base Excess ABG Hemoglobin Oxyhemoglobin Sodium Chloride Carbon Dioxide 32 H BUN 20 H Creatinine 0.3 L Glucose 155 H POC Glucose 164 H Lactic Acid Magnesium AST ALT Total Creatine Kinase C-Reactive Protein Total Protein Albumin Urine WBC (Auto) Vancomycin Trough Salicylates Acetaminophen 10/17/18 10/17/18 12:24 13:21 WBC RBC Hgb Hct RDW Lymph % (Auto) [place] % (Auto) [place] # Seg Neutrophils % Seg Neuts % (Manual) Lymphocytes % (Manual) Seg Neutrophils # Seg Neutrophils # Man Lymphocytes # (Manual) Monocytes # (Manual) PT INR APTT POC ABG pH 7.337 L ABG pH POC ABG pCO2 68.3 H POC ABG pO2 79 L ABG pO2 ABG HCO3 ABG O2 Saturation ABG Base Excess ABG Hemoglobin Oxyhemoglobin Sodium Chloride Carbon Dioxide BUN Creatinine Glucose POC Glucose 169 H Lactic Acid Magnesium AST ALT Total Creatine Kinase C-Reactive Protein Total Protein Albumin Urine WBC (Auto) Vancomycin Trough Salicylates Acetaminophen
--- NOTE | 2018-10-17 16:43 | Progress Note ---
Assessment and Plan Assessment and plan: Sepsis. Patient off pressors. Continue antibiotics per infectious disease. Left lower lobe pneumonia. Continue antibiotics per ID recommendation Left lung collapse; Dr. Jacobo will do broch to remove the mucus clog, family agree with that Anoxic brain injury. EEG per Neurology shows no epileptiform abnormalities, focal or lateralizing features, or significant interhemispheric findings.. MRI findings consistent with anoxic brain injury. Keppra started per neurology twice a day for seizure prophylaxis. Cont. Provigil Dr. Sr consulted and had a long discussion about the prognosis. Cardiopulmonary arrest. Echo revealed EF 60-65%, mild LVH, impaired relaxation, mild TR, mild pulm HTN RVSP 48mmHg, small pericardial effusion, left pleural effusion. Continue supportive care. S/P ACLS protocol initiation with return of cardiac rhythm Acute hypoxemic respiratory failure. Continue mechanical ventilation per pulmonary. Cont. SBT. Patient will need consideration for trach and PEG discussions on Tuesday. Paroxysmal atrial fibrillation. Per cardiology recommendations. Hypertension. Continue antihypertensive medications as needed. Elevated LFTs. Etiology likely secondary to sepsis/shock/ischemic hepatitis. POLLY. Per pulmonary. Overall poor prognosis with minimal chance for neurological recovery Discharge status; DNR We have a long discussion me, Dr. Jacobo, Dr. Sr, case management, nursing coordinator and the patient's nurse with all of the family members and they want her to be DNR and want to discuss with each other to discuss with the next step. But they declined PEG and trach. It took over an hour. The high probability of a clinically significant, sudden or life threatening deterioration of the [respiratory, cardiovascular, neurology] system(s) required my full and direct attention, intervention and personal management. The aggregate critical care time was [34] minutes. This time is in addition to time spent performing reported procedures but includes the following: [x] Data Review and interpretation [x] Patient assessment and monitoring of vital signs [x] Documentation [x] Medication orders and management History Interval history: Patient was seen and evaluated this morning, and is intubated and on mechanical ventilation Hospitalist Physical - Physical exam Narrative exam: Patient is intubated on the mechanical ventilation The patient appeared well nourished and normally developed. Vital signs as documented. Head exam is unremarkable. No scleral icterus . Neck is without jugular venous distension, thyromegaly, or carotid bruits. Lungs are clear to auscultation. Cardiac exam reveals regular rate and Rhythm. First and second heart sounds normal. No murmurs, rubs or gallops. Abdominal exam reveals normal bowel sounds, no masses, no organomegaly and no aortic enlargement. Extremities are nonedematous and both femoral and pedal pulses are normal. SONG WRITER: Patient open her eyes. Has some brainstem reflexes. - Constitutional Vitals: Temp Pulse Resp BP Pulse Ox 97.3 F L 75 8 L 97/49 100 10/17/18 11:00 10/17/18 16:12 10/17/18 12:03 10/17/18 16:12 10/17/18 16:17 General appearance: Present: no acute distress, other (orally intubated) Results - Labs CBC & Chem 7: 10/17/18 04:32 10/17/18 04:32 Labs: Laboratory Last Values WBC 19.9 K/mm3 (4.5-11.0) H 10/17/18 04:32 RBC 3.53 M/mm3 (3.65-5.03) L 10/17/18 04:32 Hgb 10.3 gm/dl (10.1-14.3) 10/17/18 04:32 Hct 31.8 % (30.3-42.9) 10/17/18 04:32 MCV 90 fl (79-97) 10/17/18 04:32 MCH 29 pg (28-32) 10/17/18 04:32 MCHC 32 % (30-34) 10/17/18 04:32 RDW 14.1 % (13.2-15.2) 10/17/18 04:32 Plt Count 236 K/mm3 (140-440) 10/17/18 04:32 Lymph % (Auto) 6.8 % (13.4-35.0) L 10/17/18 04:32 [place] % (Auto) 7.8 % (0.0-7.3) H 10/17/18 04:32 Eos % (Auto) 1.1 % (0.0-4.3) 10/17/18 04:32 Baso % (Auto) 0.1 % (0.0-1.8) 10/17/18 04:32 Lymph # 1.4 K/mm3 (1.2-5.4) 10/17/18 04:32 [place] # 1.5 K/mm3 (0.0-0.8) H 10/17/18 04:32 Eos # 0.2 K/mm3 (0.0-0.4) 10/17/18 04:32 Baso # 0.0 K/mm3 (0.0-0.1) 10/17/18 04:32 Add Manual Diff Complete 10/16/18 05:12 Total Counted 100 10/16/18 05:12 Seg Neutrophils % 84.2 % (40.0-70.0) H 10/17/18 04:32 Seg Neuts % (Manual) 93.0 % (40.0-70.0) H 10/16/18 05:12 1.0 % 10/16/18 05:12 1.0 % (13.4-35.0) L 10/16/18 05:12 Reactive Lymphs % (Man) 0 % 10/16/18 05:12 4.0 % (0.0-7.3) 10/16/18 05:12 0 % (0.0-4.3) 10/16/18 05:12 0 % (0.0-1.8) 10/16/18 05:12 1.0 % 10/16/18 05:12 0 % 10/16/18 05:12 0 % 10/16/18 05:12 0 % 10/16/18 05:12 Nucleated RBC % Not Reportable 10/16/18 05:12 Seg Neutrophils # 16.7 K/mm3 (1.8-7.7) H 10/17/18 04:32 Seg Neutrophils # Man 20.4 K/mm3 (1.8-7.7) H 10/16/18 05:12 Band Neutrophils # 0.2 K/mm3 10/16/18 05:12 0.2 K/mm3 (1.2-5.4) L 10/16/18 05:12 Abs React Lymphs (Man) 0.0 K/mm3 10/16/18 05:12 0.9 K/mm3 (0.0-0.8) H 10/16/18 05:12 0.0 K/mm3 (0.0-0.4) 10/16/18 05:12 0.0 K/mm3 (0.0-0.1) 10/16/18 05:12 0.2 K/mm3 10/16/18 05:12 0.0 K/mm3 10/16/18 05:12 0.0 K/mm3 10/16/18 05:12 Blast Cells # 0.0 K/mm3 10/16/18 05:12 WBC Morphology Not Reportable 10/16/18 05:12 Hypersegmented Neuts Not Reportable 10/16/18 05:12 Hyposegmented Neuts Not Reportable 10/16/18 05:12 Hypogranular Neuts Not Reportable 10/16/18 05:12 Not Reportable 10/16/18 05:12 Not Reportable 10/16/18 05:12 Not Reportable 10/16/18 05:12 Not Reportable 10/16/18 05:12 Not Reportable 10/16/18 05:12 Not Reportable 10/16/18 05:12 Consistent w auto 10/16/18 05:12 Not Reportable 10/16/18 05:12 Plt Clumps, EDTA Not Reportable 10/16/18 05:12 Not Reportable 10/16/18 05:12 Not Reportable 10/16/18 05:12 Not Reportable 10/16/18 05:12 Plt Morphology Comment Not Reportable 10/16/18 05:12 RBC Morphology Not Reportable 10/16/18 05:12 Dimorphic RBCs Not Reportable 10/16/18 05:12 Not Reportable 10/16/18 05:12 Not Reportable 10/16/18 05:12 Not Reportable 10/16/18 05:12 Not Reportable 10/16/18 05:12 Not Reportable 10/16/18 05:12 Not Reportable 10/16/18 05:12 Not Reportable 10/16/18 05:12 Not Reportable 10/16/18 05:12 Not Reportable 10/16/18 05:12 Not Reportable 10/16/18 05:12 Not Reportable 10/16/18 05:12 Rare 10/16/18 05:12 Not Reportable 10/16/18 05:12 Not Reportable 10/16/18 05:12 Not Reportable 10/16/18 05:12 Not Reportable 10/16/18 05:12 Not Reportable 10/16/18 05:12 Not Reportable 10/16/18 05:12 Not Reportable 10/16/18 05:12 Acanthocytes (Spur) Not Reportable 10/16/18 05:12 Rouleaux Not Reportable 10/16/18 05:12 Not Reportable 10/16/18 05:12 Not Reportable 10/16/18 05:12 Not Reportable 10/16/18 05:12 Not Reportable 10/16/18 05:12 Hem Pathologist Commnt No 10/16/18 05:12 PT 16.6 Sec. (12.2-14.9) H 10/09/18 10:50 INR 1.38 (0.87-1.13) H 10/09/18 10:50 APTT 39.4 Sec. (24.2-36.6) H 10/09/18 10:50 POC ABG pH 7.337 (7.35-7.45) L 10/17/18 13:21 ABG pH 7.452 pH Units (7.350-7.450) H 10/16/18 05:05 POC ABG pCO2 68.3 (35-45) H 10/17/18 13:21 ABG pCO2 48.7 mm Hg 10/16/18 05:05 POC ABG pO2 79 (80-105) L 10/17/18 13:21 ABG pO2 66.6 mm Hg (80.0-90.0) L 10/16/18 05:05 POC ABG HCO3 36.6 (22-26 mml/L) 10/17/18 13:21 ABG HCO3 33.3 mmol/L (20.0-26.0) H 10/16/18 05:05 POC ABG Total CO2 39 (23-27mmol/L) 10/17/18 13:21 POC ABG O2 Sat 94 10/17/18 13:21 ABG O2 Saturation 94.0 % (95.0-99.0) L 10/16/18 05:05 ABG O2 Content 11.4 (0.0-44) 10/16/18 05:05 POC ABG Base Excess 11 ((-2) - (+3)mmol/L) 10/17/18 13:21 ABG Base Excess 8.4 mmol/L (-2.0-3.0) H 10/16/18 05:05 ABG Hemoglobin 8.7 gm/dl (12.0-16.0) L 10/16/18 05:05 ABG Carboxyhemoglobin 1.5 % (0.0-5.0) 10/16/18 05:05 ABG Methemoglobin 0.6 % (0.0-1.5) 10/16/18 05:05 92.1 % (95.0-99.0) L 10/16/18 05:05 30 % 10/17/18 13:21 Sodium 138 mmol/L (137-145) 10/17/18 04:32 Potassium 5.0 mmol/L (3.6-5.0) 10/17/18 04:32 Chloride 99.7 mmol/L (98-107) 10/17/18 04:32 Carbon Dioxide 32 mmol/L (22-30) H 10/17/18 04:32 11 mmol/L 10/17/18 04:32 BUN 20 mg/dL (7-17) H 10/17/18 04:32 0.3 mg/dL (0.7-1.2) L 10/17/18 04:32 Estimated GFR > 60 ml/min 10/17/18 04:32 67 % 10/17/18 04:32 Glucose 155 mg/dL (65-100) H 10/17/18 04:32 POC Glucose 169 (70-105) H 10/17/18 12:24 Lactic Acid 1.90 mmol/L (0.7-2.0) 10/09/18 20:50 Calcium 10.0 mg/dL (8.4-10.2) 10/17/18 04:32 Magnesium 3.70 mg/dL (1.7-2.3) H 10/09/18 10:50 0.30 mg/dL (0.1-1.2) 10/09/18 10:50 AST 51 units/L (5-40) H 10/09/18 10:50 ALT 67 units/L (7-56) H 10/09/18 10:50 60 units/L (35-129) 10/09/18 10:50 171 units/L (30-135) H 10/09/18 10:50 < 0.010 ng/mL (0.00-0.029) 10/09/18 10:50 2.70 mg/dL (0.00-1.30) H 10/12/18 13:03 5.3 g/dL (6.3-8.2) L 10/09/18 10:50 3.0 g/dL (3.9-5) L 10/09/18 10:50 1.3 % 10/09/18 10:50 Yellow (Yellow) 10/09/18 12:12 Hazy (Clear) 10/09/18 12:12 7.0 (5.0-7.0) 10/09/18 12:12 Ur Specific [place] 1.011 (1.003-1.030) 10/09/18 12:12 100 mg/dl mg/dL (Negative) 10/09/18 12:12 150 mg/dL (Negative) 10/09/18 12:12 Neg mg/dL (Negative) 10/09/18 12:12 Sm (Negative) 10/09/18 12:12 Neg (Negative) 10/09/18 12:12 Neg (Negative) 10/09/18 12:12 < 2.0 mg/dL (<2.0) 10/09/18 12:12 Ur Leukocyte Esterase Neg (Negative) 10/09/18 12:12 8.0 /HPF (0.0-6.0) H 10/09/18 12:12 7.0 /HPF (0.0-6.0) 10/09/18 12:12 Few /HPF 10/09/18 12:12 Vancomycin Trough 4.8 ug/mL (5.0-20.0) L 10/12/18 22:33 Salicylates < 0.3 mg/dL (2.8-20.0) L 10/09/18 10:50 Acetaminophen < 5.0 ug/mL (10.0-30.0) L 10/09/18 10:50 Plasma/Serum Alcohol < 0.01 % (0-0.07) 10/09/18 10:50 Active Medications - Current Medications Current Medications: Generic Name Dose Route Start Last Admin Trade Name Freq PRN Reason Stop Dose Admin Acetaminophen 650 mg 10/10/18 00:18 10/15/18 14:57 Tylenol [place] 650 mg Q4H PRN Administration Pain, Mild (1-3) Albuterol 2.5 mg 10/12/18 12:20 Proventil IH Q4HRT PRN Shortness Of Breath Lipase/Protease/Amylase 1 each 10/10/18 10:31 Pancreeleanor Prajapati 10,500 Unit FEEDTUBE PRN PRN For Clogged Feeding Tube Apixaban 5 mg 10/09/18 22:00 10/17/18 09:20 Eliquis PO 5 mg BID SAUNDRA Administration Protocol Cholestyramine Resin 4 gm 10/16/18 15:00 10/17/18 13:03 Questran PO 10/18/18 23:59 4 gm Q8HR SAUNDRA Administration Diltiazem HCl 60 mg 10/10/18 12:00 10/17/18 13:03 Cardizem PO 60 mg Q6HR SAUNDRA Administration Famotidine 20 mg 10/10/18 22:00 10/17/18 09:20 Pepcid PO 20 mg BID SAUNDRA Administration Fentanyl 50 mcg 10/09/18 10:48 10/09/18 14:24 Sublimaze IV 50 mcg Q10MIN PRN Administration ANALGESIA Hydralazine HCl 10 mg 10/16/18 02:07 10/16/18 02:20 Apresoline IV 10 mg Q4H PRN Administration Blood Pressure Hydralazine HCl 25 mg 10/16/18 15:00 10/17/18 09:20 Apresoline PO 25 mg BID SAUNDRA Administration Hydrophilic Ointment 1 applic 10/09/18 10:48 Vaseline Lip Therapy TP Q2HR PRN Dry Lips Fentanyl Citrate 2,000 mcg in 100 mls @ 3.561 mls/hr 10/09/18 11:00 Fentanyl Drip Premix IV TITR SAUNDRA Protocol 1 MCG/KG/HR Cefepime HCl 2 gm in 100 mls @ 200 mls/hr 10/10/18 10:00 10/17/18 13:03 Maxipime/Ns 2 Gm/100 Ml IV 10/18/18 23:59 200 mls/hr Q8HR SAUNDRA Administration Protocol Metronidazole 500 mg in 100 mls @ 100 mls/hr 10/12/18 16:00 10/17/18 09:19 Flagyl 500 Mg/100 Ml IV 10/18/18 23:59 100 mls/hr Q8H SAUNDRA Administration Protocol Propofol 1,000 mg in 100 mls @ 2.025 mls/hr 10/17/18 14:00 10/17/18 16:06 Diprivan 10 Mg/Ml IV 0 mcg/kg/min TITR SAUNDRA 0 mls/hr Titration Protocol 5 MCG/KG/MIN Insulin Human Lispro 0 unit 10/10/18 12:00 10/17/18 13:03 Humalog SUB-Q 2 unit Q6HR SAUNDRA Administration Protocol Levetiracetam 500 mg 10/11/18 10:00 10/17/18 09:19 Keppra PO 500 mg BID SAUNDRA Administration Metoprolol Tartrate 5 mg 10/10/18 09:21 10/13/18 20:08 Lopressor IV 5 mg Q6HR PRN Administration Hypertension Metoprolol Tartrate 50 mg 10/15/18 14:25 10/17/18 09:19 Lopressor PO 50 mg BID SAUNDRA Administration Midazolam HCl 2 mg 10/12/18 12:21 Versed IV Q2H PRN Sedation Modafinil 100 mg 10/14/18 13:10 10/17/18 09:19 Provigil PO 100 mg QAM SAUNDRA Administration Multi-Ingred Cream/Lotion/Oil/Oint 1 applic 10/09/18 10:48 10/09/18 18:29 Artificial Tears Ophth Oint OU 1 applic Q4HR PRN Administration Dry Eye(s) Simple Syrup 15 ml 10/10/18 10:31 Simple Syrup FEEDTUBE PRN PRN Hypoglycemia Simple Syrup 30 ml 10/10/18 10:31 Simple Syrup FEEDTUBE PRN PRN Hypoglycemia Sodium Bicarbonate 325 mg 10/10/18 10:31 Sodium Bicarbonate FEEDTUBE PRN PRN For Clogged Feeding Tube Sodium Chloride 5 ml 10/09/18 10:48 Nacl 0.9% 500 Ml IV DIRECT PRN ARTERIAL DYNAMICS AX TECHNICAL ARCHITECT Sodium Chloride 10 ml 10/09/18 22:00 10/17/18 09:23 Sodium Chloride Flush Syringe 10 Ml IV 10 ml BID SAUNDRA Administration Sodium Chloride 10 ml 10/09/18 13:07 Sodium Chloride Flush Syringe 10 Ml IV PRN PRN LINE FLUSH Nutrition/Malnutrition Assess - Dietary Evaluation Nutrition/Malnutrition Findings: Nutrition Notes Start: 10/10/18 08:09 Freq: Status: Active Protocol: Document 10/13/18 10:34 LM (Rec: 10/13/18 10:40 LM [email or web address]) Nutrition Notes Initial or Follow up Reassessment Current Diagnosis Sepsis,Hypertension, Respiratory Failure Other Pertinent Diagnosis Anoxic brain injury Current Diet Vital AF 1.2 at 50 ml/hr Labs/Tests BG 139 Cr 0.3 Pertinent Medications Reviewed Height 5 ft 2 in Weight 63.7 kg [place] Body Weight (kg) 50.00 BMI 25.7 Subjective/Other Information TF running at 50 ml/hr. Pt tolerating TF well. Percent of energy/protein needs met: 100%/100% Burn Absent Trauma Absent #1 Nutrition Diagnosis Inadequate oral intake Diagnosis Progress(for reassessment Continues documentation) Is patient on ventilator? Yes Is Patient Ambulatory and/or Out of Bed No REE-([facility]-confined to bed) 1361.868 Calculation Used for Recommendations [facility] Additional Notes Protein: 76-127g (1.2-2 g/kg) Fluid: 1 ml/kcal Nutrition Intervention Change Diet Order: Continue TF Nutrition Support: Vital AF 1.2 at 50 ml/hr Flush 75 ml/hr Kcal 1,440 Protein (gm) 90 Fluid (mL) 973 Goal #1 Meet at least 75% of energy and protein needs Anticipated Discharge Needs: Unable to determine at this time Follow-Up By: 10/20/18 Additional Comments F/U for TF rate/tolerance
--- NOTE | 2018-10-17 16:46 | XRay Report ---
CHEST 1 VIEW INDICATION / CLINICAL INFORMATION: left lung atelectasis. COMPARISON: 10/17/2018, 1314 hours FINDINGS: SUPPORT DEVICES: Endotracheal tube and nasogastric tube appear unchanged. HEART / MEDIASTINUM: Obscured LUNGS / PLEURA: There is complete opacification of left hemithorax. There is volume loss on the left and shift of mediastinum to the left. The right lung appears unchanged.. No pneumothorax. ADDITIONAL FINDINGS: No significant additional findings. IMPRESSION: 1. No significant change Signer Name: Filemon Arellano MD Signed: 10/17/2018 4:42 PM Workstation Name: [id number]
--- NOTE | 2018-10-17 17:27 | XRay Report ---
CHEST 1 VIEW 5:09 PM INDICATION: complete left lung atelectasis s/p bronchoscopy. COMPARISON: Earlier the same day FINDINGS: Support devices: Unchanged. Heart: Stable. Lungs/Pleura: Left upper lobe complete atelectasis has essentially resolved. There is persistent comp lete left lower lobe atelectasis. There is probably a small left pleural effusion. No pneumothorax. R ight lung is clear. IMPRESSION: 1. Left upper lobe atelectasis has resolved. 2. Persistent left lower lobe atelectasis. Signer Name: Ramírez Olivarez MD Signed: 10/17/2018 5:22 PM Workstation Name: [id number]
--- NOTE | 2018-10-17 18:47 | Cat Scan Report ---
CT HEAD WITHOUT CONTRAST INDICATION / CLINICAL INFORMATION: anoxic brain injury. Follow-up study. TECHNIQUE: All CT scans at this location are performed using CT dose reduction for ALARA by means of automated e xposure control. COMPARISON: Head CT 10/09/2018 and MRI brain 10/10/2018 FINDINGS: HEMORRHAGE: No evidence of intracranial hemorrhage or extra-axial fluid collection. EXTRA-AXIAL SPACES: Interval development of sulcal effacement is observed over the lateral convexity subdural both cerebral hemispheres. 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 VENTRICULAR SYSTEM: The ventricular system is decreased slightly in size in comparison to baseline st udy 10/09/2018. This is most apparent on evaluation of the third ventricle and atria of the lateral ray tricles which are decreased in size. CEREBRAL PARENCHYMA: Progressive decrease in attenuation is observed throughout most of the brain wit h relative sparing of the thalami MRI. There is loss of poon-white distinction throughout both cerebr al hemispheres. These are findings of cytotoxic edema secondary to advanced brain injury. MIDLINE SHIFT OR HERNIATION: There is no midline shift as the mass effect produced by cytotoxic edema is bilaterally symmetrical. CEREBELLUM / BRAINSTEM: Brainstem and cerebellum have an unremarkable appearance. INTRACRANIAL VESSELS:No abnormalities are identified on this noncontrast head CT. ORBITS: visualized portions of the orbits have an unremarkable appearance. SOFT TISSUES of HEAD: No significant abnormality. CALVARIUM: Evaluation of bone windows reveals no abnormalities. PARANASAL SINUSES / MASTOID AIR CELLS: Paranasal sinuses are free from inflammatory mucosal disease. Mastoid air cells are normally pneumatized. IMPRESSION: 1. Extensive cytotoxic edema with effacement of cortical sulci, compression of the third ventricle an d partial effacement of CSF attenuation from the atria of the lateral ventricles. In addition there i s loss of poon-white distinction and generalized decreased brain parenchymal attenuation in both cere bral hemispheres. 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 Signer Name: Rivas Yañez MD Signed: 10/17/2018 6:42 PM Workstation Name: [id number]
--- NOTE | 2018-10-17 22:39 | Event Note ---
Date: 10/17/[address] brain result with neurologist. Report reviewed While there is evidence of cerebral edema there is no eveidence of uncal herniation. Family clearly did not feel their mother will want a trach or PEG today and made her AND/DNAR My best assessment is that they will not want placement of an EVD We will discuss CT brain findings with family in the morning and continue current care Risks i believe outweigh benefits of osmotic diuresis without ICP monitoring or neuro-ICU management and overall prognosis remains grave.
--- NOTE | 2018-10-18 02:48 | Operative Report ---
PULMONARY PROCEDURE NOTE PROCEDURE: Fiberoptic bronchoscopy with bronchoalveolar lavage. INDICATION: Complete left lung atelectasis with hemodynamic instability in a patient on the mechanical ventilator. Consent was informed and witness obtained from her son. COMPLICATIONS: No immediate procedural complications. PROCEDURE DETAILS: After informed and witnessed consent as well as premedication, the patient being on a propofol drip, which we increased the dose, the fiberoptic bronchoscope was passed through the Bodai valve and advanced into the distal trachea. From the level of the penelope, you could see minimal secretions in the right main stem bronchus. Topical lidocaine was applied at the penelope. The right mainstem was entered. Secretions were cleared out of the airway. Right upper lobe was evaluated quickly, also right lower lobe, middle lobe, basilar divisions did not show any gross endobronchial tumor. Fiberoptic bronchoscope was then withdrawn and advanced to the left main stem bronchus from midway down the left main stem bronchus. We could see thick mucus blocking the airway completely including the left upper lobe opening. This was thick tenacious mucus. Sequential lavages were done and sequential episodes of suctioning at times; multiple times, I had to pull out the fiberoptic bronchoscope and actually flush the secretions with a syringe out of the fiberoptic bronchoscope. I continued to do this procedure for, maybe, about 30 minutes before we were able to clear the left lower lobe and lingula. After most of the secretions were cleared, the fiberoptic bronchoscope was wedged in the basilar segment and sequential aliquots of bronchoalveolar lavage samples were taken. A total of about 50 mL was instilled with about 30 mL recovered. At this point, I did notice again more thick-looking mucus. We again tried to clean the airway, I did my best as I could over the next 15 minutes after which showed there were no big clots of the mucus that I could see. The fiberoptic bronchoscope was withdrawn through the Bodai valve. The patient tolerated the procedure well. RECOMMENDATIONS: 1. Stat chest x-ray will be ordered to evaluate for lung atelectasis resolution. 2. Bronchoalveolar lavage samples will be sent to the lab for microbiology and cytology studies. I did not see any gross endobronchial lesion; however, around the areas of the mucus after clearing it out, the endobronchial wall looked pretty inflamed and irregular and some bronchial washes were taken from here; so, hopefully we will be able to get any positive cytology if there is indeed malignant process going on. JOB# [id number] [facility]
[2018-10-18] MEDS: MAXIPIME/NS 2 GM/100 ML 2 GM/100 ML BAG IV SCH ×3 (05:21→22:52)
[2018-10-18] MEDS: CARDIZEM PO SCH ×3 (05:24→18:03)
[2018-10-18] MEDS: QUESTRAN PO SCH ×2 (05:25→13:02)
[2018-10-18] MEDS: HumaLOG SUB-Q SCH ×3 (05:31→18:03)
[2018-10-18] MEDS: PEPCID PO SCH ×2 (09:13→22:52)
[2018-10-18] MEDS: ELIQUIS PO SCH ×2 (09:13→22:52)
[2018-10-18] MEDS: KEPPRA PO SCH ×2 (09:14→22:51)
[2018-10-18] MEDS: LOPRESSOR PO SCH ×2 (09:14→22:55)
[2018-10-18] MEDS: APRESOLINE PO SCH ×2 (09:15→22:52)
[2018-10-18] MEDS: PROVIGIL PO SCH (09:15)
[2018-10-18] MEDS: FLAGYL 500 MG/100 ML 500 MG/100 ML BAG IV SCH ×2 (09:15→15:08)
[2018-10-18] MEDS: SODIUM CHLORIDE FLUSH SYRINGE 10 ML IV SCH ×2 (09:16→22:54)
--- NOTE | 2018-10-18 10:38 | Progress Note ---
Assessment and Plan s/p cardiopulmonary arrest-OOH with ROSC Acute hyoxemic respiratory failure on MVS Acute hypercapnic respiratory failure Acute encephalopathy- metabolic Sepsis Aspiration pneumonia LLL Myoclonic jerks, post arrest Atrial fibrillation with RVR (s/p family meeting and they have requested DNAR status and contemplating hospi ce; also stated she would not have wanted a trach and PEG) - s/p bronchoscopy for Left lung white out - follow BAL studies - continue metoprolol at 50 mg bid - continue hydralazine 25 mg po bid - continue Provigil - continue daily SAT and SBT assessments as tolerated - continue prn albuterol nebs - VAP bundle addressed - continue to wean supplemental O2 to keep O2 sats > 90% - follow 2D ECHO - VTE prophylaxis - Stress ulcer prophylaxis - Continue OGT for nutrition and oral medications - Tube feeding for nutritional support - continue accuchecks with glycemic control per SSI for target blood glucose 140-180mg/dL - follow official EEG report - continue empiric antibiotics for aspiration pneumonia (MRSA and GNR coverage re: recent health care facility associations) - resume chronic home medications per attending - continue Midazolam for sedation and seizure management - continue Keppra - neurology evaluation ongoing - continue mobility protocols / off loading for pressure ulcer prevention - Critical care bundles addressed - continue Seizure precautions - fall precautions - neuro-checks per RN - continue other care per attending / other consultants ... care plan discussed with family in room CONDITION: CRITICAL PROGNOSIS: GUARDED TO GRAVE CODE STATUS: FULL CODE The high probability of a clinically significant, sudden or life threatening deterioration of the [Neurology Respiratory, Cardiovascular] system(s) required my full and direct attention, intervention and personal management. The aggregate critical care time was [36] minutes. This time is in addition to time spent performing reported procedures but includes the following: [x] Data Review and interpretation [x] Patient assessment and monitoring of vital signs [x] Documentation [x] Medication orders and management Subjective Date of service: 10/18/18 Principal diagnosis: Cardiac arrest with ROSC; Ac hypoxemic resp failure; Ac. encephalopathy Interval history: Follow up for: OOH cardiac arrest with ROSC; acute hypoxic-hypercapnic respiratory failure; myoclonic jerks; acute metabolic encephalopathy Seen and examined at bedside; 24hour events reviewed; nursing and respiratory care staff consulted; no adverse overnight events reported to me; resting peacefully in bed; Objective Vital Signs - 12hr 09/10/19 09/10/19 09/10/19 23:00 23:11 23:36 Temperature 98.9 F Pulse Rate 74 73 Pulse Rate [ From Monitor] Respiratory 18 Rate Blood Pressure 101/39 101/39 O2 Sat by Pulse 100 100 Oximetry 10/17/18 10/18/18 10/18/18 23:54 00:00 01:00 Temperature Pulse Rate 79 78 82 Pulse Rate [ 79 From Monitor] Respiratory 18 18 Rate Blood Pressure 122/48 116/46 119/46 O2 Sat by Pulse 100 100 Oximetry 10/18/18 10/18/18 10/18/18 02:00 03:00 03:20 Temperature Pulse Rate 84 83 84 Pulse Rate [ From Monitor] Respiratory 18 18 Rate Blood Pressure 130/52 119/46 119/46 O2 Sat by Pulse 100 100 100 Oximetry 10/18/18 10/18/18 10/18/18 03:51 04:00 05:00 Temperature 99.2 F Pulse Rate 81 87 Pulse Rate [ 82 From Monitor] Respiratory 18 17 Rate Blood Pressure 123/47 134/60 O2 Sat by Pulse 100 99 Oximetry 10/18/18 10/18/18 10/18/18 05:24 06:00 07:00 Temperature Pulse Rate 86 82 79 Pulse Rate [ From Monitor] Respiratory 18 18 Rate Blood Pressure 134/60 121/52 129/51 O2 Sat by Pulse 100 100 Oximetry 10/18/18 10/18/18 10/18/18 08:00 08:04 09:00 Temperature 99.6 F Pulse Rate 79 83 80 Pulse Rate [ 79 From Monitor] Respiratory 18 16 Rate Blood Pressure 136/54 136/54 119/58 O2 Sat by Pulse 100 100 100 Oximetry 10/18/18 10/18/18 09:14 09:15 Temperature Pulse Rate 81 78 Pulse Rate [ From Monitor] Respiratory Rate Blood Pressure 119/58 119/58 O2 Sat by Pulse Oximetry Constitutional: no acute distress, other (+ myoclonic jerks during sedation vacations) Eyes: non-icteric ENT: oropharynx moist, other (ETT approx 23cm SUELLEN) Neck: supple, no lymphadenopathy, no JVD Effort: mildly labored Ascultation: Bilateral: diminished breath sounds, rhonchi Percussion: Bilateral: not dull Cardiovascular: regular rate and rhythm, other (occasional extrasystolee's) Gastrointestinal: normoactive bowel sounds, soft, non-tender, non-distended Integumentary: normal Extremities: no cyanosis, no edema, pink and warm, pulses normal Neurologic: unable to assess, other (posturing to painful stimuli, Pupils are minimally reactive) Psychiatric: other (unable to assess) CBC and BMP: 10/17/18 04:32 10/17/18 04:32 ABG, PT/INR, D-dimer: ABG POC ABG pH 7.472 (7.35-7.45) H 10/18/18 03:29 ABG pH 7.452 pH Units (7.350-7.450) H 10/16/18 05:05 POC ABG pCO2 43.6 (35-45) 10/18/18 03:29 ABG pCO2 48.7 mm Hg 10/16/18 05:05 POC ABG pO2 97 (80-105) 10/18/18 03:29 ABG pO2 66.6 mm Hg (80.0-90.0) L 10/16/18 05:05 POC ABG HCO3 31.9 (22-26 mml/L) 10/18/18 03:29 POC ABG Total CO2 33 (23-27mmol/L) 10/18/18 03:29 POC ABG O2 Sat 98 10/18/18 03:29 ABG O2 Saturation 94.0 % (95.0-99.0) L 10/16/18 05:05 PT/INR, D-dimer PT 16.6 Sec. (12.2-14.9) H 10/09/18 10:50 INR 1.38 (0.87-1.13) H 10/09/18 10:50 Abnormal lab findings: Abnormal Labs 10/09/18 10/09/18 10/09/18 10:14 10:50 10:50 WBC RBC Hgb Hct RDW Lymph % (Auto) [place] % (Auto) [place] # Seg Neutrophils % Seg Neuts % (Manual) Lymphocytes % (Manual) Seg Neutrophils # Seg Neutrophils # Man Lymphocytes # (Manual) Monocytes # (Manual) PT 16.6 H INR 1.38 H APTT 39.4 H POC ABG pH ABG pH POC ABG pCO2 POC ABG pO2 ABG pO2 ABG HCO3 ABG O2 Saturation ABG Base Excess ABG Hemoglobin Oxyhemoglobin Sodium Chloride 90.3 L Carbon Dioxide BUN 21 H Creatinine Glucose 315 H POC Glucose 344 H Lactic Acid Magnesium AST 51 H ALT 67 H Total Creatine Kinase C-Reactive Protein Total Protein 5.3 L Albumin 3.0 L Urine WBC (Auto) Vancomycin Trough Salicylates Acetaminophen 10/09/18 10/09/18 10/09/18 10:50 10:50 10:50 WBC RBC Hgb Hct RDW Lymph % (Auto) [place] % (Auto) [place] # Seg Neutrophils % Seg Neuts % (Manual) Lymphocytes % (Manual) Seg Neutrophils # Seg Neutrophils # Man Lymphocytes # (Manual) Monocytes # (Manual) PT INR APTT POC ABG pH ABG pH POC ABG pCO2 POC ABG pO2 ABG pO2 ABG HCO3 ABG O2 Saturation ABG Base Excess ABG Hemoglobin Oxyhemoglobin Sodium Chloride Carbon Dioxide BUN Creatinine Glucose POC Glucose Lactic Acid Magnesium 3.70 H AST ALT Total Creatine Kinase 171 H C-Reactive Protein Total Protein Albumin Urine WBC (Auto) Vancomycin Trough Salicylates < 0.3 L Acetaminophen < 5.0 L 10/09/18 10/09/18 10/09/18 10:50 10:55 11:38 WBC 31.3 H RBC Hgb Hct RDW 13.0 L Lymph % (Auto) [place] % (Auto) [place] # Seg Neutrophils % Seg Neuts % (Manual) 91.5 H Lymphocytes % (Manual) 4.5 L Seg Neutrophils # Seg Neutrophils # Man 28.6 H Lymphocytes # (Manual) Monocytes # (Manual) 1.1 H PT INR APTT POC ABG pH 7.243 L ABG pH POC ABG pCO2 68.0 H POC ABG pO2 389 H ABG pO2 ABG HCO3 ABG O2 Saturation ABG Base Excess ABG Hemoglobin Oxyhemoglobin Sodium Chloride Carbon Dioxide BUN Creatinine Glucose POC Glucose Lactic Acid 9.30 H* Magnesium AST ALT Total Creatine Kinase C-Reactive Protein Total Protein Albumin Urine WBC (Auto) Vancomycin Trough Salicylates Acetaminophen 10/09/18 10/09/18 10/09/18 12:12 15:28 16:27 WBC RBC Hgb Hct RDW Lymph % (Auto) [place] % (Auto) [place] # Seg Neutrophils % Seg Neuts % (Manual) Lymphocytes % (Manual) Seg Neutrophils # Seg Neutrophils # Man Lymphocytes # (Manual) Monocytes # (Manual) PT INR APTT POC ABG pH 7.598 H ABG pH POC ABG pCO2 POC ABG pO2 61 L ABG pO2 ABG HCO3 ABG O2 Saturation ABG Base Excess ABG Hemoglobin Oxyhemoglobin Sodium Chloride Carbon Dioxide BUN Creatinine Glucose POC Glucose 173 H Lactic Acid Magnesium AST ALT Total Creatine Kinase C-Reactive Protein Total Protein Albumin Urine WBC (Auto) 8.0 H Vancomycin Trough Salicylates Acetaminophen 10/09/18 10/09/18 10/09/18 16:44 16:44 18:38 WBC RBC Hgb Hct RDW Lymph % (Auto) [place] % (Auto) [place] # Seg Neutrophils % Seg Neuts % (Manual) Lymphocytes % (Manual) Seg Neutrophils # Seg Neutrophils # Man Lymphocytes # (Manual) Monocytes # (Manual) PT INR APTT POC ABG pH ABG pH POC ABG pCO2 POC ABG pO2 ABG pO2 ABG HCO3 ABG O2 Saturation ABG Base Excess ABG Hemoglobin Oxyhemoglobin Sodium Chloride Carbon Dioxide BUN Creatinine Glucose POC Glucose 177 H Lactic Acid 3.80 H* 3.70 H* Magnesium AST ALT Total Creatine Kinase C-Reactive Protein Total Protein Albumin Urine WBC (Auto) Vancomycin Trough Salicylates Acetaminophen 10/10/18 10/10/18 10/10/18 00:33 04:24 05:32 WBC RBC Hgb Hct RDW Lymph % (Auto) [place] % (Auto) [place] # Seg Neutrophils % Seg Neuts % (Manual) Lymphocytes % (Manual) Seg Neutrophils # Seg Neutrophils # Man Lymphocytes # (Manual) Monocytes # (Manual) PT INR APTT POC ABG pH 7.602 H ABG pH POC ABG pCO2 POC ABG pO2 170 H ABG pO2 ABG HCO3 ABG O2 Saturation ABG Base Excess ABG Hemoglobin Oxyhemoglobin Sodium Chloride Carbon Dioxide BUN Creatinine Glucose POC Glucose 177 H 190 H Lactic Acid Magnesium AST ALT Total Creatine Kinase C-Reactive Protein Total Protein Albumin Urine WBC (Auto) Vancomycin Trough Salicylates Acetaminophen 10/10/18 10/10/18 10/10/18 07:54 07:54 12:18 WBC 38.6 H RBC Hgb Hct RDW Lymph % (Auto) [place] % (Auto) [place] # Seg Neutrophils % Seg Neuts % (Manual) Lymphocytes % (Manual) Seg Neutrophils # Seg Neutrophils # Man Lymphocytes # (Manual) Monocytes # (Manual) PT INR APTT POC ABG pH ABG pH POC ABG pCO2 POC ABG pO2 ABG pO2 ABG HCO3 ABG O2 Saturation ABG Base Excess ABG Hemoglobin Oxyhemoglobin Sodium Chloride Carbon Dioxide BUN 31 H Creatinine Glucose 124 H POC Glucose 151 H Lactic Acid Magnesium AST ALT Total Creatine Kinase C-Reactive Protein Total Protein Albumin Urine WBC (Auto) Vancomycin Trough Salicylates Acetaminophen 10/10/18 10/10/18 10/11/18 18:17 23:09 03:40 WBC RBC Hgb Hct RDW Lymph % (Auto) [place] % (Auto) [place] # Seg Neutrophils % Seg Neuts % (Manual) Lymphocytes % (Manual) Seg Neutrophils # Seg Neutrophils # Man Lymphocytes # (Manual) Monocytes # (Manual) PT INR APTT POC ABG pH ABG pH POC ABG pCO2 POC ABG pO2 ABG pO2 91.1 H ABG HCO3 28.8 H ABG O2 Saturation ABG Base Excess ABG Hemoglobin 7.6 L Oxyhemoglobin Sodium Chloride Carbon Dioxide BUN Creatinine Glucose POC Glucose 132 H 124 H Lactic Acid Magnesium AST ALT Total Creatine Kinase C-Reactive Protein Total Protein Albumin Urine WBC (Auto) Vancomycin Trough Salicylates Acetaminophen 10/11/18 10/11/18 10/11/18 04:45 04:45 06:50 WBC 25.8 H RBC 3.41 L Hgb Hct RDW Lymph % (Auto) [place] % (Auto) [place] # Seg Neutrophils % Seg Neuts % (Manual) 83.0 H Lymphocytes % (Manual) Seg Neutrophils # Seg Neutrophils # Man 21.4 H Lymphocytes # (Manual) Monocytes # (Manual) PT INR APTT POC ABG pH ABG pH POC ABG pCO2 POC ABG pO2 ABG pO2 ABG HCO3 ABG O2 Saturation ABG Base Excess ABG Hemoglobin Oxyhemoglobin Sodium Chloride Carbon Dioxide BUN 26 H Creatinine 0.6 L Glucose 134 H POC Glucose 134 H Lactic Acid Magnesium AST ALT Total Creatine Kinase C-Reactive Protein Total Protein Albumin Urine WBC (Auto) Vancomycin Trough Salicylates Acetaminophen 10/11/18 10/11/18 10/12/18 13:10 18:08 00:25 WBC RBC Hgb Hct RDW Lymph % (Auto) [place] % (Auto) [place] # Seg Neutrophils % Seg Neuts % (Manual) Lymphocytes % (Manual) Seg Neutrophils # Seg Neutrophils # Man Lymphocytes # (Manual) Monocytes # (Manual) PT INR APTT POC ABG pH ABG pH POC ABG pCO2 POC ABG pO2 ABG pO2 ABG HCO3 ABG O2 Saturation ABG Base Excess ABG Hemoglobin Oxyhemoglobin Sodium Chloride Carbon Dioxide BUN Creatinine Glucose POC Glucose 160 H 166 H 136 H Lactic Acid Magnesium AST ALT Total Creatine Kinase C-Reactive Protein Total Protein Albumin Urine WBC (Auto) Vancomycin Trough Salicylates Acetaminophen 10/12/18 10/12/18 10/12/18 03:56 04:17 04:17 WBC 19.2 H RBC 3.04 L Hgb 8.9 L Hct 27.2 L RDW Lymph % (Auto) 8.5 L [place] % (Auto) [place] # 1.4 H Seg Neutrophils % 84.2 H Seg Neuts % (Manual) Lymphocytes % (Manual) Seg Neutrophils # 16.2 H Seg Neutrophils # Man Lymphocytes # (Manual) Monocytes # (Manual) PT INR APTT POC ABG pH ABG pH POC ABG pCO2 POC ABG pO2 ABG pO2 77.9 L ABG HCO3 29.4 H ABG O2 Saturation ABG Base Excess 4.4 H ABG Hemoglobin 10.2 L Oxyhemoglobin 94.7 L Sodium Chloride Carbon Dioxide BUN Creatinine 0.5 L Glucose 139 H POC Glucose Lactic Acid Magnesium AST ALT Total Creatine Kinase C-Reactive Protein Total Protein Albumin Urine WBC (Auto) Vancomycin Trough Salicylates Acetaminophen 10/12/18 10/12/18 10/12/18 05:51 11:46 13:03 WBC RBC Hgb Hct RDW Lymph % (Auto) [place] % (Auto) [place] # Seg Neutrophils % Seg Neuts % (Manual) Lymphocytes % (Manual) Seg Neutrophils # Seg Neutrophils # Man Lymphocytes # (Manual) Monocytes # (Manual) PT INR APTT POC ABG pH ABG pH POC ABG pCO2 POC ABG pO2 ABG pO2 ABG HCO3 ABG O2 Saturation ABG Base Excess ABG Hemoglobin Oxyhemoglobin Sodium Chloride Carbon Dioxide BUN Creatinine Glucose POC Glucose 163 H 162 H Lactic Acid Magnesium AST ALT Total Creatine Kinase C-Reactive Protein 2.70 H Total Protein Albumin Urine WBC (Auto) Vancomycin Trough Salicylates Acetaminophen 10/12/18 10/12/18 10/12/18 17:44 22:33 23:54 WBC RBC Hgb Hct RDW Lymph % (Auto) [place] % (Auto) [place] # Seg Neutrophils % Seg Neuts % (Manual) Lymphocytes % (Manual) Seg Neutrophils # Seg Neutrophils # Man Lymphocytes # (Manual) Monocytes # (Manual) PT INR APTT POC ABG pH ABG pH POC ABG pCO2 POC ABG pO2 ABG pO2 ABG HCO3 ABG O2 Saturation ABG Base Excess ABG Hemoglobin Oxyhemoglobin Sodium Chloride Carbon Dioxide BUN Creatinine Glucose POC Glucose 143 H 180 H Lactic Acid Magnesium AST ALT Total Creatine Kinase C-Reactive Protein Total Protein Albumin Urine WBC (Auto) Vancomycin Trough 4.8 L Salicylates Acetaminophen 10/13/18 10/13/18 10/13/18 02:30 02:30 03:10 WBC 19.8 H RBC 3.12 L Hgb 9.2 L Hct 28.2 L RDW Lymph % (Auto) 8.1 L [place] % (Auto) 8.0 H [place] # 1.6 H Seg Neutrophils % 83.2 H Seg Neuts % (Manual) Lymphocytes % (Manual) Seg Neutrophils # 16.5 H Seg Neutrophils # Man Lymphocytes # (Manual) Monocytes # (Manual) PT INR APTT POC ABG pH ABG pH POC ABG pCO2 POC ABG pO2 ABG pO2 ABG HCO3 32.9 H ABG O2 Saturation ABG Base Excess 7.2 H ABG Hemoglobin 10.8 L Oxyhemoglobin Sodium Chloride Carbon Dioxide BUN Creatinine 0.3 L Glucose 139 H POC Glucose Lactic Acid Magnesium AST ALT Total Creatine Kinase C-Reactive Protein Total Protein Albumin Urine WBC (Auto) Vancomycin Trough Salicylates Acetaminophen 10/13/18 10/13/18 10/13/18 05:17 11:52 17:18 WBC RBC Hgb Hct RDW Lymph % (Auto) [place] % (Auto) [place] # Seg Neutrophils % Seg Neuts % (Manual) Lymphocytes % (Manual) Seg Neutrophils # Seg Neutrophils # Man Lymphocytes # (Manual) Monocytes # (Manual) PT INR APTT POC ABG pH ABG pH POC ABG pCO2 56.7 H POC ABG pO2 63 L ABG pO2 ABG HCO3 ABG O2 Saturation ABG Base Excess ABG Hemoglobin Oxyhemoglobin Sodium Chloride Carbon Dioxide BUN Creatinine Glucose POC Glucose 192 H 200 H Lactic Acid Magnesium AST ALT Total Creatine Kinase C-Reactive Protein Total Protein Albumin Urine WBC (Auto) Vancomycin Trough Salicylates Acetaminophen 10/13/18 10/14/18 10/14/18 17:53 00:00 03:55 WBC RBC Hgb Hct RDW Lymph % (Auto) [place] % (Auto) [place] # Seg Neutrophils % Seg Neuts % (Manual) Lymphocytes % (Manual) Seg Neutrophils # Seg Neutrophils # Man Lymphocytes # (Manual) Monocytes # (Manual) PT INR APTT POC ABG pH ABG pH POC ABG pCO2 POC ABG pO2 ABG pO2 ABG HCO3 34.1 H ABG O2 Saturation ABG Base Excess 8.4 H ABG Hemoglobin 10.6 L Oxyhemoglobin 94.8 L Sodium Chloride Carbon Dioxide BUN Creatinine Glucose POC Glucose 215 H 236 H Lactic Acid Magnesium AST ALT Total Creatine Kinase C-Reactive Protein Total Protein Albumin Urine WBC (Auto) Vancomycin Trough Salicylates Acetaminophen 10/14/18 10/14/18 10/14/18 05:00 08:05 08:05 WBC 16.8 H RBC 3.27 L Hgb 9.8 L Hct 29.7 L RDW 13.1 L Lymph % (Auto) 7.5 L [place] % (Auto) 8.6 H [place] # 1.4 H Seg Neutrophils % 82.4 H Seg Neuts % (Manual) Lymphocytes % (Manual) Seg Neutrophils # 13.8 H Seg Neutrophils # Man Lymphocytes # (Manual) Monocytes # (Manual) PT INR APTT POC ABG pH ABG pH POC ABG pCO2 POC ABG pO2 ABG pO2 ABG HCO3 ABG O2 Saturation ABG Base Excess ABG Hemoglobin Oxyhemoglobin Sodium Chloride Carbon Dioxide 33 H BUN Creatinine 0.3 L Glucose 140 H POC Glucose 170 H Lactic Acid Magnesium AST ALT Total Creatine Kinase C-Reactive Protein Total Protein Albumin Urine WBC (Auto) Vancomycin Trough Salicylates Acetaminophen 10/14/18 10/14/18 10/14/18 12:04 14:06 18:04 WBC RBC Hgb Hct RDW Lymph % (Auto) [place] % (Auto) [place] # Seg Neutrophils % Seg Neuts % (Manual) Lymphocytes % (Manual) Seg Neutrophils # Seg Neutrophils # Man Lymphocytes # (Manual) Monocytes # (Manual) PT INR APTT POC ABG pH 7.330 L ABG pH POC ABG pCO2 67.6 H POC ABG pO2 75 L ABG pO2 ABG HCO3 ABG O2 Saturation ABG Base Excess ABG Hemoglobin Oxyhemoglobin Sodium Chloride Carbon Dioxide BUN Creatinine Glucose POC Glucose 202 H 189 H Lactic Acid Magnesium AST ALT Total Creatine Kinase C-Reactive Protein Total Protein Albumin Urine WBC (Auto) Vancomycin Trough Salicylates Acetaminophen 10/14/18 10/15/18 10/15/18 23:16 04:58 05:03 WBC 18.0 H RBC 3.36 L Hgb Hct RDW Lymph % (Auto) 7.5 L [place] % (Auto) [place] # 1.3 H Seg Neutrophils % 83.2 H Seg Neuts % (Manual) Lymphocytes % (Manual) Seg Neutrophils # 15.0 H Seg Neutrophils # Man Lymphocytes # (Manual) Monocytes # (Manual) PT INR APTT POC ABG pH ABG pH POC ABG pCO2 54.9 H POC ABG pO2 72 L ABG pO2 ABG HCO3 ABG O2 Saturation ABG Base Excess ABG Hemoglobin Oxyhemoglobin Sodium Chloride Carbon Dioxide BUN Creatinine Glucose POC Glucose 187 H Lactic Acid Magnesium AST ALT Total Creatine Kinase C-Reactive Protein Total Protein Albumin Urine WBC (Auto) Vancomycin Trough Salicylates Acetaminophen 10/15/18 10/15/18 10/15/18 05:03 05:54 11:53 WBC RBC Hgb Hct RDW Lymph % (Auto) [place] % (Auto) [place] # Seg Neutrophils % Seg Neuts % (Manual) Lymphocytes % (Manual) Seg Neutrophils # Seg Neutrophils # Man Lymphocytes # (Manual) Monocytes # (Manual) PT INR APTT POC ABG pH ABG pH POC ABG pCO2 POC ABG pO2 ABG pO2 ABG HCO3 ABG O2 Saturation ABG Base Excess ABG Hemoglobin Oxyhemoglobin Sodium Chloride Carbon Dioxide 33 H BUN 19 H Creatinine 0.3 L Glucose 161 H POC Glucose 191 H 188 H Lactic Acid Magnesium AST ALT Total Creatine Kinase C-Reactive Protein Total Protein Albumin Urine WBC (Auto) Vancomycin Trough Salicylates Acetaminophen 10/15/18 10/15/18 10/16/18 17:30 23:15 05:05 WBC RBC Hgb Hct RDW Lymph % (Auto) [place] % (Auto) [place] # Seg Neutrophils % Seg Neuts % (Manual) Lymphocytes % (Manual) Seg Neutrophils # Seg Neutrophils # Man Lymphocytes # (Manual) Monocytes # (Manual) PT INR APTT POC ABG pH ABG pH 7.452 H POC ABG pCO2 POC ABG pO2 ABG pO2 66.6 L ABG HCO3 33.3 H ABG O2 Saturation 94.0 L ABG Base Excess 8.4 H ABG Hemoglobin 8.7 L Oxyhemoglobin 92.1 L Sodium Chloride Carbon Dioxide BUN Creatinine Glucose POC Glucose 178 H 177 H Lactic Acid Magnesium AST ALT Total Creatine Kinase C-Reactive Protein Total Protein Albumin Urine WBC (Auto) Vancomycin Trough Salicylates Acetaminophen 10/16/18 10/16/18 10/16/18 05:12 05:12 05:49 WBC 21.9 H RBC 3.62 L Hgb Hct RDW Lymph % (Auto) [place] % (Auto) [place] # Seg Neutrophils % Seg Neuts % (Manual) 93.0 H Lymphocytes % (Manual) 1.0 L Seg Neutrophils # Seg Neutrophils # Man 20.4 H Lymphocytes # (Manual) 0.2 L Monocytes # (Manual) 0.9 H PT INR APTT POC ABG pH ABG pH POC ABG pCO2 POC ABG pO2 ABG pO2 ABG HCO3 ABG O2 Saturation ABG Base Excess ABG Hemoglobin Oxyhemoglobin Sodium 136 L Chloride 96.3 L Carbon Dioxide 34 H BUN 20 H Creatinine 0.3 L Glucose 183 H POC Glucose 187 H Lactic Acid Magnesium AST ALT Total Creatine Kinase C-Reactive Protein Total Protein Albumin Urine WBC (Auto) Vancomycin Trough Salicylates Acetaminophen 10/16/18 10/16/18 10/16/18 11:25 17:41 23:08 WBC RBC Hgb Hct RDW Lymph % (Auto) [place] % (Auto) [place] # Seg Neutrophils % Seg Neuts % (Manual) Lymphocytes % (Manual) Seg Neutrophils # Seg Neutrophils # Man Lymphocytes # (Manual) Monocytes # (Manual) PT INR APTT POC ABG pH ABG pH POC ABG pCO2 POC ABG pO2 ABG pO2 ABG HCO3 ABG O2 Saturation ABG Base Excess ABG Hemoglobin Oxyhemoglobin Sodium Chloride Carbon Dioxide BUN Creatinine Glucose POC Glucose 200 H 184 H 166 H Lactic Acid Magnesium AST ALT Total Creatine Kinase C-Reactive Protein Total Protein Albumin Urine WBC (Auto) Vancomycin Trough Salicylates Acetaminophen 10/17/18 10/17/18 10/17/18 04:32 04:32 05:12 WBC 19.9 H RBC 3.53 L Hgb Hct RDW Lymph % (Auto) 6.8 L [place] % (Auto) 7.8 H [place] # 1.5 H Seg Neutrophils % 84.2 H Seg Neuts % (Manual) Lymphocytes % (Manual) Seg Neutrophils # 16.7 H Seg Neutrophils # Man Lymphocytes # (Manual) Monocytes # (Manual) PT INR APTT POC ABG pH ABG pH POC ABG pCO2 POC ABG pO2 ABG pO2 ABG HCO3 ABG O2 Saturation ABG Base Excess ABG Hemoglobin Oxyhemoglobin Sodium Chloride Carbon Dioxide 32 H BUN 20 H Creatinine 0.3 L Glucose 155 H POC Glucose 164 H Lactic Acid Magnesium AST ALT Total Creatine Kinase C-Reactive Protein Total Protein Albumin Urine WBC (Auto) Vancomycin Trough Salicylates Acetaminophen 10/17/18 10/17/18 10/17/18 12:24 13:21 18:03 WBC RBC Hgb Hct RDW Lymph % (Auto) [place] % (Auto) [place] # Seg Neutrophils % Seg Neuts % (Manual) Lymphocytes % (Manual) Seg Neutrophils # Seg Neutrophils # Man Lymphocytes # (Manual) Monocytes # (Manual) PT INR APTT POC ABG pH 7.337 L ABG pH POC ABG pCO2 68.3 H POC ABG pO2 79 L ABG pO2 ABG HCO3 ABG O2 Saturation ABG Base Excess ABG Hemoglobin Oxyhemoglobin Sodium Chloride Carbon Dioxide BUN Creatinine Glucose POC Glucose 169 H 139 H Lactic Acid Magnesium AST ALT Total Creatine Kinase C-Reactive Protein Total Protein Albumin Urine WBC (Auto) Vancomycin Trough Salicylates Acetaminophen 10/17/18 10/18/18 10/18/18 23:13 03:29 05:33 WBC RBC Hgb Hct RDW Lymph % (Auto) [place] % (Auto) [place] # Seg Neutrophils % Seg Neuts % (Manual) Lymphocytes % (Manual) Seg Neutrophils # Seg Neutrophils # Man Lymphocytes # (Manual) Monocytes # (Manual) PT INR APTT POC ABG pH 7.472 H ABG pH POC ABG pCO2 POC ABG pO2 ABG pO2 ABG HCO3 ABG O2 Saturation ABG Base Excess ABG Hemoglobin Oxyhemoglobin Sodium Chloride Carbon Dioxide BUN Creatinine Glucose POC Glucose 170 H 151 H Lactic Acid Magnesium AST ALT Total Creatine Kinase C-Reactive Protein Total Protein Albumin Urine WBC (Auto) Vancomycin Trough Salicylates Acetaminophen Allied health notes reviewed: nursing
--- NOTE | 2018-10-18 15:15 | Progress Note ---
Assessment and Plan Assessment and plan: Sepsis. Patient off pressors. Continue antibiotics per infectious disease. Left lower lobe pneumonia. Continue antibiotics per ID recommendation Left lung collapse; Dr. Jacobo did broch, CXR after bronchoscopy showed improvement Anoxic brain injury. EEG per Neurology shows no epileptiform abnormalities, focal or lateralizing features, or significant interhemispheric findings.. MRI findings consistent with anoxic brain injury. Keppra started per neurology twice a day for seizure prophylaxis. Cont. Provigil Dr. Sr consulted and had a long discussion about the prognosis. Cardiopulmonary arrest. Echo revealed EF 60-65%, mild LVH, impaired relaxation, mild TR, mild pulm HTN RVSP 48mmHg, small pericardial effusion, left pleural effusion. Continue supportive care. S/P ACLS protocol initiation with return of cardiac rhythm Acute hypoxemic respiratory failure. Continue mechanical ventilation per pulmonary. Cont. SBT. Patient will need consideration for trach and PEG discus sions on Tuesday. Paroxysmal atrial fibrillation. Per cardiology recommendations. Hypertension. Continue antihypertensive medications as needed. Elevated LFTs. Etiology likely secondary to sepsis/shock/ischemic hepatitis. POLLY. Per pulmonary. Overall poor prognosis with minimal chance for neurological recovery Discharge status; DNR We had a long discussion me, Dr. Jacobo, Dr. Sr, case management, nursing program director and the patient's nurse with all of the family members and they want her to be DNR and want to discuss with each other to discuss with the next step. But they declined PEG and trach. The high probability of a clinically significant, sudden or life threatening deterioration of the [respiratory, cardiovascular, neurology] system(s) required my full and direct attention, intervention and personal management. The aggregate critical care time was [34] minutes. This time is in addition to time spent performing reported procedures but includes the following: [x] Data Review and interpretation [x] Patient assessment and monitoring of vital signs [x] Documentation [x] Medication orders and management History Interval history: Patient was seen and evaluated this morning, and is intubated and on mechanical ventilation Hospitalist Physical - Physical exam Narrative exam: Patient is intubated on the mechanical ventilation The patient appeared well nourished and normally developed. Vital signs as documented. Head exam is unremarkable. No scleral icterus . Neck is without jugular venous distension, thyromegaly, or carotid bruits. Lungs are clear to auscultation. Cardiac exam reveals regular rate and Rhythm. First and second heart sounds normal. No murmurs, rubs or gallops. Abdominal exam reveals normal bowel sounds, no masses, no organomegaly and no aortic enlargement. Extremities are nonedematous and both femoral and pedal pulses are normal. EDGE MOLDER: Patient open her eyes. Has some brainstem reflexes. - Constitutional Vitals: Temp Pulse Resp BP Pulse Ox 99.0 F 62 15 132/51 100 10/18/18 12:00 10/18/18 14:00 10/18/18 14:00 10/18/18 14:00 10/18/18 14:00 General appearance: Present: no acute distress, other (orally intubated) Results - Labs CBC & Chem 7: 10/17/18 04:32 10/17/18 04:32 Labs: Laboratory Last Values WBC 19.9 K/mm3 (4.5-11.0) H 10/17/18 04:32 RBC 3.53 M/mm3 (3.65-5.03) L 10/17/18 04:32 Hgb 10.3 gm/dl (10.1-14.3) 10/17/18 04:32 Hct 31.8 % (30.3-42.9) 10/17/18 04:32 MCV 90 fl (79-97) 10/17/18 04:32 MCH 29 pg (28-32) 10/17/18 04:32 MCHC 32 % (30-34) 10/17/18 04:32 RDW 14.1 % (13.2-15.2) 10/17/18 04:32 Plt Count 236 K/mm3 (140-440) 10/17/18 04:32 Lymph % (Auto) 6.8 % (13.4-35.0) L 10/17/18 04:32 [place] % (Auto) 7.8 % (0.0-7.3) H 10/17/18 04:32 Eos % (Auto) 1.1 % (0.0-4.3) 10/17/18 04:32 Baso % (Auto) 0.1 % (0.0-1.8) 10/17/18 04:32 Lymph # 1.4 K/mm3 (1.2-5.4) 10/17/18 04:32 [place] # 1.5 K/mm3 (0.0-0.8) H 10/17/18 04:32 Eos # 0.2 K/mm3 (0.0-0.4) 10/17/18 04:32 Baso # 0.0 K/mm3 (0.0-0.1) 10/17/18 04:32 Add Manual Diff Complete 10/16/18 05:12 Total Counted 100 10/16/18 05:12 Seg Neutrophils % 84.2 % (40.0-70.0) H 10/17/18 04:32 Seg Neuts % (Manual) 93.0 % (40.0-70.0) H 10/16/18 05:12 1.0 % 10/16/18 05:12 1.0 % (13.4-35.0) L 10/16/18 05:12 Reactive Lymphs % (Man) 0 % 10/16/18 05:12 4.0 % (0.0-7.3) 10/16/18 05:12 0 % (0.0-4.3) 10/16/18 05:12 0 % (0.0-1.8) 10/16/18 05:12 1.0 % 10/16/18 05:12 0 % 10/16/18 05:12 0 % 10/16/18 05:12 0 % 10/16/18 05:12 Nucleated RBC % Not Reportable 10/16/18 05:12 Seg Neutrophils # 16.7 K/mm3 (1.8-7.7) H 10/17/18 04:32 Seg Neutrophils # Man 20.4 K/mm3 (1.8-7.7) H 10/16/18 05:12 Band Neutrophils # 0.2 K/mm3 10/16/18 05:12 0.2 K/mm3 (1.2-5.4) L 10/16/18 05:12 Abs React Lymphs (Man) 0.0 K/mm3 10/16/18 05:12 0.9 K/mm3 (0.0-0.8) H 10/16/18 05:12 0.0 K/mm3 (0.0-0.4) 10/16/18 05:12 0.0 K/mm3 (0.0-0.1) 10/16/18 05:12 0.2 K/mm3 10/16/18 05:12 0.0 K/mm3 10/16/18 05:12 0.0 K/mm3 10/16/18 05:12 Blast Cells # 0.0 K/mm3 10/16/18 05:12 WBC Morphology Not Reportable 10/16/18 05:12 Hypersegmented Neuts Not Reportable 10/16/18 05:12 Hyposegmented Neuts Not Reportable 10/16/18 05:12 Hypogranular Neuts Not Reportable 10/16/18 05:12 Not Reportable 10/16/18 05:12 Not Reportable 10/16/18 05:12 Not Reportable 10/16/18 05:12 Not Reportable 10/16/18 05:12 Not Reportable 10/16/18 05:12 Not Reportable 10/16/18 05:12 Consistent w auto 10/16/18 05:12 Not Reportable 10/16/18 05:12 Plt Clumps, EDTA Not Reportable 10/16/18 05:12 Not Reportable 10/16/18 05:12 Not Reportable 10/16/18 05:12 Not Reportable 10/16/18 05:12 Plt Morphology Comment Not Reportable 10/16/18 05:12 RBC Morphology Not Reportable 10/16/18 05:12 Dimorphic RBCs Not Reportable 10/16/18 05:12 Not Reportable 10/16/18 05:12 Not Reportable 10/16/18 05:12 Not Reportable 10/16/18 05:12 Not Reportable 10/16/18 05:12 Not Reportable 10/16/18 05:12 Not Reportable 10/16/18 05:12 Not Reportable 10/16/18 05:12 Not Reportable 10/16/18 05:12 Not Reportable 10/16/18 05:12 Not Reportable 10/16/18 05:12 Not Reportable 10/16/18 05:12 Rare 10/16/18 05:12 Not Reportable 10/16/18 05:12 Not Reportable 10/16/18 05:12 Not Reportable 10/16/18 05:12 Not Reportable 10/16/18 05:12 Not Reportable 10/16/18 05:12 Not Reportable 10/16/18 05:12 Not Reportable 10/16/18 05:12 Acanthocytes (Spur) Not Reportable 10/16/18 05:12 Rouleaux Not Reportable 10/16/18 05:12 Not Reportable 10/16/18 05:12 Not Reportable 10/16/18 05:12 Not Reportable 10/16/18 05:12 Not Reportable 10/16/18 05:12 Hem Pathologist Commnt No 10/16/18 05:12 PT 16.6 Sec. (12.2-14.9) H 10/09/18 10:50 INR 1.38 (0.87-1.13) H 10/09/18 10:50 APTT 39.4 Sec. (24.2-36.6) H 10/09/18 10:50 POC ABG pH 7.472 (7.35-7.45) H 10/18/18 03:29 ABG pH 7.452 pH Units (7.350-7.450) H 10/16/18 05:05 POC ABG pCO2 43.6 (35-45) 10/18/18 03:29 ABG pCO2 48.7 mm Hg 10/16/18 05:05 POC ABG pO2 97 (80-105) 10/18/18 03:29 ABG pO2 66.6 mm Hg (80.0-90.0) L 10/16/18 05:05 POC ABG HCO3 31.9 (22-26 mml/L) 10/18/18 03:29 ABG HCO3 33.3 mmol/L (20.0-26.0) H 10/16/18 05:05 POC ABG Total CO2 33 (23-27mmol/L) 10/18/18 03:29 POC ABG O2 Sat 98 10/18/18 03:29 ABG O2 Saturation 94.0 % (95.0-99.0) L 10/16/18 05:05 ABG O2 Content 11.4 (0.0-44) 10/16/18 05:05 POC ABG Base Excess 8 ((-2) - (+3)mmol/L) 10/18/18 03:29 ABG Base Excess 8.4 mmol/L (-2.0-3.0) H 10/16/18 05:05 ABG Hemoglobin 8.7 gm/dl (12.0-16.0) L 10/16/18 05:05 ABG Carboxyhemoglobin 1.5 % (0.0-5.0) 10/16/18 05:05 ABG Methemoglobin 0.6 % (0.0-1.5) 10/16/18 05:05 92.1 % (95.0-99.0) L 10/16/18 05:05 40 % 10/18/18 03:29 Sodium 138 mmol/L (137-145) 10/17/18 04:32 Potassium 5.0 mmol/L (3.6-5.0) 10/17/18 04:32 Chloride 99.7 mmol/L (98-107) 10/17/18 04:32 Carbon Dioxide 32 mmol/L (22-30) H 10/17/18 04:32 11 mmol/L 10/17/18 04:32 BUN 20 mg/dL (7-17) H 10/17/18 04:32 0.3 mg/dL (0.7-1.2) L 10/17/18 04:32 Estimated GFR > 60 ml/min 10/17/18 04:32 67 % 10/17/18 04:32 Glucose 155 mg/dL (65-100) H 10/17/18 04:32 POC Glucose 170 (70-105) H 10/18/18 11:37 Lactic Acid 1.90 mmol/L (0.7-2.0) 10/09/18 20:50 Calcium 10.0 mg/dL (8.4-10.2) 10/17/18 04:32 Magnesium 3.70 mg/dL (1.7-2.3) H 10/09/18 10:50 0.30 mg/dL (0.1-1.2) 10/09/18 10:50 AST 51 units/L (5-40) H 10/09/18 10:50 ALT 67 units/L (7-56) H 10/09/18 10:50 60 units/L (35-129) 10/09/18 10:50 171 units/L (30-135) H 10/09/18 10:50 < 0.010 ng/mL (0.00-0.029) 10/09/18 10:50 2.70 mg/dL (0.00-1.30) H 10/12/18 13:03 5.3 g/dL (6.3-8.2) L 10/09/18 10:50 3.0 g/dL (3.9-5) L 10/09/18 10:50 1.3 % 10/09/18 10:50 Yellow (Yellow) 10/09/18 12:12 Hazy (Clear) 10/09/18 12:12 7.0 (5.0-7.0) 10/09/18 12:12 Ur Specific [place] 1.011 (1.003-1.030) 10/09/18 12:12 100 mg/dl mg/dL (Negative) 10/09/18 12:12 150 mg/dL (Negative) 10/09/18 12:12 Neg mg/dL (Negative) 10/09/18 12:12 Sm (Negative) 10/09/18 12:12 Neg (Negative) 10/09/18 12:12 Neg (Negative) 10/09/18 12:12 < 2.0 mg/dL (<2.0) 10/09/18 12:12 Ur Leukocyte Esterase Neg (Negative) 10/09/18 12:12 8.0 /HPF (0.0-6.0) H 10/09/18 12:12 7.0 /HPF (0.0-6.0) 10/09/18 12:12 Few /HPF 10/09/18 12:12 Vancomycin Trough 4.8 ug/mL (5.0-20.0) L 10/12/18 22:33 Salicylates < 0.3 mg/dL (2.8-20.0) L 10/09/18 10:50 Acetaminophen < 5.0 ug/mL (10.0-30.0) L 10/09/18 10:50 Plasma/Serum Alcohol < 0.01 % (0-0.07) 10/09/18 10:50 Active Medications - Current Medications Current Medications: Generic Name Dose Route Start Last Admin Trade Name Freq PRN Reason Stop Dose Admin Acetaminophen 650 mg 10/10/18 00:18 10/15/18 14:57 Tylenol [place] 650 mg Q4H PRN Administration Pain, Mild (1-3) Albuterol 2.5 mg 10/12/18 12:20 Proventil IH Q4HRT PRN Shortness Of Breath Lipase/Protease/Amylase 1 each 10/10/18 10:31 Pancreeleanor Prajapati 10,500 Unit FEEDTUBE PRN PRN For Clogged Feeding Tube Apixaban 5 mg 10/09/18 22:00 10/18/18 09:13 Eliquis PO 5 mg BID SAUNDRA Administration Protocol Cholestyramine Resin 4 gm 10/16/18 15:00 10/18/18 13:02 Questran PO 10/18/18 23:59 4 gm Q8HR SAUNDRA Administration Diltiazem HCl 60 mg 10/10/18 12:00 10/18/18 12:45 Cardizem PO 60 mg Q6HR SAUNDRA Administration Famotidine 20 mg 10/10/18 22:00 10/18/18 09:13 Pepcid PO 20 mg BID SAUNDRA Administration Fentanyl 50 mcg 10/09/18 10:48 10/09/18 14:24 Sublimaze IV 50 mcg Q10MIN PRN Administration ANALGESIA Hydralazine HCl 10 mg 10/16/18 02:07 10/16/18 02:20 Apresoline IV 10 mg Q4H PRN Administration Blood Pressure Hydralazine HCl 25 mg 10/16/18 15:00 10/18/18 09:15 Apresoline PO 25 mg BID SAUNDRA Administration Hydrophilic Ointment 1 applic 10/09/18 10:48 Vaseline Lip Therapy TP Q2HR PRN Dry Lips Fentanyl Citrate 2,000 mcg in 100 mls @ 3.561 mls/hr 10/09/18 11:00 Fentanyl Drip Premix IV TITR SAUNDRA Protocol 1 MCG/KG/HR Cefepime HCl 2 gm in 100 mls @ 200 mls/hr 10/10/18 10:00 10/18/18 13:02 Maxipime/Ns 2 Gm/100 Ml IV 10/18/18 23:59 200 mls/hr Q8HR SAUNDRA Administration Protocol Metronidazole 500 mg in 100 mls @ 100 mls/hr 10/12/18 16:00 10/18/18 15:08 Flagyl 500 Mg/100 Ml IV 10/18/18 23:59 100 mls/hr Q8H SAUNDRA Administration Protocol Propofol 1,000 mg in 100 mls @ 2.025 mls/hr 10/17/18 14:00 10/18/18 10:58 Diprivan 10 Mg/Ml IV 0 mcg/kg/min TITR SAUNDRA 0 mls/hr Titration Protocol 5 MCG/KG/MIN Insulin Human Lispro 0 unit 10/10/18 12:00 10/18/18 12:44 Humalog SUB-Q 2 unit Q6HR SAUNDRA Administration Protocol Levetiracetam 500 mg 10/11/18 10:00 10/18/18 09:14 Keppra PO 500 mg BID SAUNDRA Administration Metoprolol Tartrate 5 mg 10/10/18 09:21 10/13/18 20:08 Lopressor IV 5 mg Q6HR PRN Administration Hypertension Metoprolol Tartrate 50 mg 10/15/18 14:25 10/18/18 09:14 Lopressor PO 50 mg BID SAUNDRA Administration Midazolam HCl 2 mg 10/12/18 12:21 Versed IV Q2H PRN Sedation Modafinil 100 mg 10/14/18 13:10 10/18/18 09:15 Provigil PO 100 mg QAM SAUNDRA Administration Multi-Ingred Cream/Lotion/Oil/Oint 1 applic 10/09/18 10:48 10/09/18 18:29 Artificial Tears Ophth Oint OU 1 applic Q4HR PRN Administration Dry Eye(s) Simple Syrup 15 ml 10/10/18 10:31 Simple Syrup FEEDTUBE PRN PRN Hypoglycemia Simple Syrup 30 ml 10/10/18 10:31 Simple Syrup FEEDTUBE PRN PRN Hypoglycemia Sodium Bicarbonate 325 mg 10/10/18 10:31 Sodium Bicarbonate FEEDTUBE PRN PRN For Clogged Feeding Tube Sodium Chloride 5 ml 10/09/18 10:48 Nacl 0.9% 500 Ml IV DIRECT PRN [employer] Sodium Chloride 10 ml 10/09/18 22:00 10/18/18 09:16 Sodium Chloride Flush Syringe 10 Ml IV 10 ml BID SAUNDRA Administration Sodium Chloride 10 ml 10/09/18 13:07 Sodium Chloride Flush Syringe 10 Ml IV PRN PRN LINE FLUSH Nutrition/Malnutrition Assess - Dietary Evaluation Nutrition/Malnutrition Findings: Nutrition Notes Start: 10/10/18 08:09 Freq: Status: Active Protocol: Document 10/13/18 10:34 LM (Rec: 10/13/18 10:40 LM [email or web address]) Nutrition Notes Initial or Follow up Reassessment Current Diagnosis Sepsis,Hypertension, Respiratory Failure Other Pertinent Diagnosis Anoxic brain injury Current Diet Vital AF 1.2 at 50 ml/hr Labs/Tests BG 139 Cr 0.3 Pertinent Medications Reviewed Height 5 ft 2 in Weight 63.7 kg [place] Body Weight (kg) 50.00 BMI 25.7 Subjective/Other Information TF running at 50 ml/hr. Pt tolerating TF well. Percent of energy/protein needs met: 100%/100% Burn Absent Trauma Absent #1 Nutrition Diagnosis Inadequate oral intake Diagnosis Progress(for reassessment Continues documentation) Is patient on ventilator? Yes Is Patient Ambulatory and/or Out of Bed No REE-([facility]-confined to bed) 1361.868 Calculation Used for Recommendations [facility] Additional Notes Protein: 76-127g (1.2-2 g/kg) Fluid: 1 ml/kcal Nutrition Intervention Change Diet Order: Continue TF Nutrition Support: Vital AF 1.2 at 50 ml/hr Flush 75 ml/hr Kcal 1,440 Protein (gm) 90 Fluid (mL) 973 Goal #1 Meet at least 75% of energy and protein needs Anticipated Discharge Needs: Unable to determine at this time Follow-Up By: 10/20/18 Additional Comments F/U for TF rate/tolerance
--- NOTE | 2018-10-18 15:25 | Progress Note ---
Assessment and Plan Cultures: 10/09 blood cultures: NGTD 10/09 urine cultures: Negative 10/09 sputum cultures: Negative A/P: 68 yo F PMHx HTN, GERD, SVT/Atrial Flutter on AC admitted with cardiac arrest, now with aspiration pneumonia 1. Septic shock secondary to aspiration pneumonia - Present with tachycardia and leukocytosis. While antibiotics are unlikely to improve her outcome given the anoxic brain injury, can continue them for now. CXR with worsening, though may just be evolution of disease. Ordered MRSA nares. 2. Cardiogenic shock - s/p resuscitation 3. Anoxic brain injury - poor prognosis for meaningful neurological recovery. 4. HTN 5. GERD 6. Fevers - Likely some component of central fevers given severe anoxic brain injury. 7. Acute respiratory failure with hypoxia Recs: - continue metronidazole 500mg TID - continue cefepime 2g q8h - expected duration: 8 days. Stop date: 10/18 - Prognosis: grim Thank you for the consult, we will continue to follow. Mumtaz Webster MD [facility] ([facility]) M: [phone] O: [phone] F: [phone] Subjective Date of service: 10/18/18 Principal diagnosis: Cardiac arrest with ROSC; Ac hypoxemic resp failure; Ac. encephalopathy Interval history: Remains non-responsive. Lung improved with bronch. Now DNR. Objective - Exam Narrative Exam: Constitutional: intubated, non-responsive. Head, Ears, Nose: Normocephalic, atraumatic. External ears, nose normal Eyes: Conjunctivae/corneas clear. No icterus. No ptosis. Neck: Supple, no meningeal signs Oral: dentition fair, no thrush Cardiovascular: S1, S2 normal. Respiratory: Good air entry, clear to auscultation bilaterally GI: Soft, non-tender; bowel sounds normal. No peritoneal signs. Musculoskeletal: No pedal edema, no cyanosis. Skin: No rash or abscess Hem/Lymphatic: No palpable cervical or supraclavicular nodes. No lymphangitis Neurological: intubated, non-responsive - Constitutional Vitals: Vital Signs Temp Pulse Resp BP Pulse Ox 99.0 F 65 15 131/51 100 10/18/18 12:00 10/18/18 15:19 10/18/18 14:00 10/18/18 15:19 10/18/18 15:19 Temperature -Last 24 Hours Temperature 99.0 F Temperature 99.6 F Temperature 99.2 F Temperature 98.9 F Temperature 98.3 F Temperature 97.6 F Temperature 97.6 F - Labs CBC & Chem 7: 10/17/18 04:32 10/17/18 04:32 Labs: Abnormal lab results 10/17/18 10/17/18 10/18/18 Range/Units 18:03 23:13 03:29 POC ABG pH 7.472 H (7.35-7.45) POC Glucose 139 H 170 H (70-105) 10/18/18 10/18/18 Range/Units 05:33 11:37 POC ABG pH (7.35-7.45) POC Glucose 151 H 170 H (70-105)
--- NOTE | 2018-10-18 16:18 | Progress Note ---
Assessment and Plan Patient is a 68 year old woman with a history of hypertension, atrial fibrillation on anticoagulation, GERD. The patient was found down, and was found to be in cardiac arrest. The approximate time duration of cardiac arrest was approximate 45-50 minutes, prior to return of spontaneous circulation. 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 Plan: 1. Anoxic brain injury: - Currently, the patient displays intact brainstem reflexes, including corneal, pupillary and cough reflexes are intact. Patient withdraws to pain stimulation in all extremities. MRI revealed evidence of anoxic brain injury with cortical riveting. EEG done previously showed generalized slowing. - CT head done 10/17/18 showed compression of third ventricle, increased cerebral edema, and loss of poon-white distinction. - Family meeting took place on 10/17/10, and we discussed at length regarding patient's prognosis, including acute change of left lung atelectasis. Patient's family stated that they would like to make the patient currently DO NOT RESUSCITATE. They also stated that they would like to discuss the possibility further care with hospice team. They stated that they have not yet decided whether or not they would like for the mother to transition to tracheostomy and PEG tube placement. - In discussion today with family, I discussed the new findings on CT scan that was done, and how cerebral edema may increase and potentially cause herniation. In that event, the patient would need to have neurosurgical intervention as a lifesaving measure. It was discussed with the patient's son that the patient need to be transferred for this. The patient's son stated that he is not yet certain if he or the family would consent to this, and that they will discuss it amongst one another prior to giving us their decision, if this was needed in the future. I discussed at length with the patient's family at bedside regarding the patient's prognosis. It was discussed that the patient is not currently brain- given the patient's current clinical exam as well as findings on EEG. It was further discussed that the patient's prognosis is indeterminate at this time, given the evidence of anoxic brain injury on MRI. It was also mentioned that, with time, the patient may have some element of neurologic recovery, however the extent of which is difficult to predict. I further discussed transitioning to a tracheostomy and a PEG tube for continued care. All questions were answered and concerns were clarified and addressed with family. - Will continue to follow the patient. -Thank you for allowing me to take part in the care of this patient. Joon Sr MD Neurology Subjective Date of service: 10/18/18 Principal diagnosis: Cardiac arrest with ROSC; Ac hypoxemic resp failure; Ac. encephalopathy Interval history: No acute events overnight. Objective - Exam Narrative Exam: Patient is intubated, comatose. Pupils equal, round, reactive to light, corneal reflexes present, cough reflex intact. Withdraws to pain stimulation in all extremities. Reflexes 3+ throughout. No spontaneous movement noted. - Vital Sign Vital Signs - 12hr 10/18/18 10/18/18 10/18/18 05:00 05:24 06:00 Temperature Pulse Rate 87 86 82 Pulse Rate [ From Monitor] Respiratory 17 18 Rate Blood Pressure 134/60 134/60 121/52 O2 Sat by Pulse 99 100 Oximetry 10/18/18 10/18/18 10/18/18 07:00 08:00 08:04 Temperature 99.6 F Pulse Rate 79 79 83 Pulse Rate [ 79 From Monitor] Respiratory 18 18 Rate Blood Pressure 129/51 136/54 136/54 O2 Sat by Pulse 100 100 100 Oximetry 10/18/18 10/18/18 10/18/18 09:00 09:14 09:15 Temperature Pulse Rate 80 81 78 Pulse Rate [ From Monitor] Respiratory 16 Rate Blood Pressure 119/58 119/58 119/58 O2 Sat by Pulse 100 Oximetry 10/18/18 10/18/18 10/18/18 10:00 11:00 11:52 Temperature Pulse Rate 71 75 80 Pulse Rate [ From Monitor] Respiratory 18 18 Rate Blood Pressure 118/55 116/50 116/50 O2 Sat by Pulse 100 100 100 Oximetry 10/18/18 10/18/18 10/18/18 12:00 12:45 13:00 Temperature 99.0 F Pulse Rate 79 79 76 Pulse Rate [ 79 From Monitor] Respiratory 13 12 Rate Blood Pressure 137/56 137/56 135/52 O2 Sat by Pulse 100 100 Oximetry 10/18/18 10/18/18 10/18/18 14:00 15:00 15:19 Temperature Pulse Rate 62 64 65 Pulse Rate [ From Monitor] Respiratory 15 13 Rate Blood Pressure 132/51 131/51 131/51 O2 Sat by Pulse 100 100 100 Oximetry - General Apperance Constitutional: uncomfortable - EENT EENT: ATNC, PERRL, mucous membranes moist - Respiratory Respiratory: decreased breath sounds - Cardiovascular Cardiovascular: regular rate, normal S1, normal S2 Extremities: no peripheral edema bilat, no clubbing, cyanosis - Gastrointestinal Gastrointestinal: normoactive bowel sounds, soft, non-tender - Integumentary Integumentary: normal - Musculoskeletal Musculoskeletal: no fluid collection - Laboratory Findings CBC and BMP: 10/17/18 04:32 10/17/18 04:32 Abnormal Lab Findings: Abnormal Labs 10/09/18 10/09/18 10/09/18 10:14 10:50 10:50 WBC RBC Hgb Hct RDW Lymph % (Auto) [place] % (Auto) [place] # Seg Neutrophils % Seg Neuts % (Manual) Lymphocytes % (Manual) Seg Neutrophils # Seg Neutrophils # Man Lymphocytes # (Manual) Monocytes # (Manual) PT 16.6 H INR 1.38 H APTT 39.4 H POC ABG pH ABG pH POC ABG pCO2 POC ABG pO2 ABG pO2 ABG HCO3 ABG O2 Saturation ABG Base Excess ABG Hemoglobin Oxyhemoglobin Sodium Chloride 90.3 L Carbon Dioxide BUN 21 H Creatinine Glucose 315 H POC Glucose 344 H Lactic Acid Magnesium AST 51 H ALT 67 H Total Creatine Kinase C-Reactive Protein Total Protein 5.3 L Albumin 3.0 L Urine WBC (Auto) Vancomycin Trough Salicylates Acetaminophen 10/09/18 10/09/18 10/09/18 10:50 10:50 10:50 WBC RBC Hgb Hct RDW Lymph % (Auto) [place] % (Auto) [place] # Seg Neutrophils % Seg Neuts % (Manual) Lymphocytes % (Manual) Seg Neutrophils # Seg Neutrophils # Man Lymphocytes # (Manual) Monocytes # (Manual) PT INR APTT POC ABG pH ABG pH POC ABG pCO2 POC ABG pO2 ABG pO2 ABG HCO3 ABG O2 Saturation ABG Base Excess ABG Hemoglobin Oxyhemoglobin Sodium Chloride Carbon Dioxide BUN Creatinine Glucose POC Glucose Lactic Acid Magnesium 3.70 H AST ALT Total Creatine Kinase 171 H C-Reactive Protein Total Protein Albumin Urine WBC (Auto) Vancomycin Trough Salicylates < 0.3 L Acetaminophen < 5.0 L 10/09/18 10/09/18 10/09/18 10:50 10:55 11:38 WBC 31.3 H RBC Hgb Hct RDW 13.0 L Lymph % (Auto) [place] % (Auto) [place] # Seg Neutrophils % Seg Neuts % (Manual) 91.5 H Lymphocytes % (Manual) 4.5 L Seg Neutrophils # Seg Neutrophils # Man 28.6 H Lymphocytes # (Manual) Monocytes # (Manual) 1.1 H PT INR APTT POC ABG pH 7.243 L ABG pH POC ABG pCO2 68.0 H POC ABG pO2 389 H ABG pO2 ABG HCO3 ABG O2 Saturation ABG Base Excess ABG Hemoglobin Oxyhemoglobin Sodium Chloride Carbon Dioxide BUN Creatinine Glucose POC Glucose Lactic Acid 9.30 H* Magnesium AST ALT Total Creatine Kinase C-Reactive Protein Total Protein Albumin Urine WBC (Auto) Vancomycin Trough Salicylates Acetaminophen 10/09/18 10/09/18 10/09/18 12:12 15:28 16:27 WBC RBC Hgb Hct RDW Lymph % (Auto) [place] % (Auto) [place] # Seg Neutrophils % Seg Neuts % (Manual) Lymphocytes % (Manual) Seg Neutrophils # Seg Neutrophils # Man Lymphocytes # (Manual) Monocytes # (Manual) PT INR APTT POC ABG pH 7.598 H ABG pH POC ABG pCO2 POC ABG pO2 61 L ABG pO2 ABG HCO3 ABG O2 Saturation ABG Base Excess ABG Hemoglobin Oxyhemoglobin Sodium Chloride Carbon Dioxide BUN Creatinine Glucose POC Glucose 173 H Lactic Acid Magnesium AST ALT Total Creatine Kinase C-Reactive Protein Total Protein Albumin Urine WBC (Auto) 8.0 H Vancomycin Trough Salicylates Acetaminophen 10/09/18 10/09/18 10/09/18 16:44 16:44 18:38 WBC RBC Hgb Hct RDW Lymph % (Auto) [place] % (Auto) [place] # Seg Neutrophils % Seg Neuts % (Manual) Lymphocytes % (Manual) Seg Neutrophils # Seg Neutrophils # Man Lymphocytes # (Manual) Monocytes # (Manual) PT INR APTT POC ABG pH ABG pH POC ABG pCO2 POC ABG pO2 ABG pO2 ABG HCO3 ABG O2 Saturation ABG Base Excess ABG Hemoglobin Oxyhemoglobin Sodium Chloride Carbon Dioxide BUN Creatinine Glucose POC Glucose 177 H Lactic Acid 3.80 H* 3.70 H* Magnesium AST ALT Total Creatine Kinase C-Reactive Protein Total Protein Albumin Urine WBC (Auto) Vancomycin Trough Salicylates Acetaminophen 10/10/18 10/10/18 10/10/18 00:33 04:24 05:32 WBC RBC Hgb Hct RDW Lymph % (Auto) [place] % (Auto) [place] # Seg Neutrophils % Seg Neuts % (Manual) Lymphocytes % (Manual) Seg Neutrophils # Seg Neutrophils # Man Lymphocytes # (Manual) Monocytes # (Manual) PT INR APTT POC ABG pH 7.602 H ABG pH POC ABG pCO2 POC ABG pO2 170 H ABG pO2 ABG HCO3 ABG O2 Saturation ABG Base Excess ABG Hemoglobin Oxyhemoglobin Sodium Chloride Carbon Dioxide BUN Creatinine Glucose POC Glucose 177 H 190 H Lactic Acid Magnesium AST ALT Total Creatine Kinase C-Reactive Protein Total Protein Albumin Urine WBC (Auto) Vancomycin Trough Salicylates Acetaminophen 10/10/18 10/10/18 10/10/18 07:54 07:54 12:18 WBC 38.6 H RBC Hgb Hct RDW Lymph % (Auto) [place] % (Auto) [place] # Seg Neutrophils % Seg Neuts % (Manual) Lymphocytes % (Manual) Seg Neutrophils # Seg Neutrophils # Man Lymphocytes # (Manual) Monocytes # (Manual) PT INR APTT POC ABG pH ABG pH POC ABG pCO2 POC ABG pO2 ABG pO2 ABG HCO3 ABG O2 Saturation ABG Base Excess ABG Hemoglobin Oxyhemoglobin Sodium Chloride Carbon Dioxide BUN 31 H Creatinine Glucose 124 H POC Glucose 151 H Lactic Acid Magnesium AST ALT Total Creatine Kinase C-Reactive Protein Total Protein Albumin Urine WBC (Auto) Vancomycin Trough Salicylates Acetaminophen 10/10/18 10/10/18 10/11/18 18:17 23:09 03:40 WBC RBC Hgb Hct RDW Lymph % (Auto) [place] % (Auto) [place] # Seg Neutrophils % Seg Neuts % (Manual) Lymphocytes % (Manual) Seg Neutrophils # Seg Neutrophils # Man Lymphocytes # (Manual) Monocytes # (Manual) PT INR APTT POC ABG pH ABG pH POC ABG pCO2 POC ABG pO2 ABG pO2 91.1 H ABG HCO3 28.8 H ABG O2 Saturation ABG Base Excess ABG Hemoglobin 7.6 L Oxyhemoglobin Sodium Chloride Carbon Dioxide BUN Creatinine Glucose POC Glucose 132 H 124 H Lactic Acid Magnesium AST ALT Total Creatine Kinase C-Reactive Protein Total Protein Albumin Urine WBC (Auto) Vancomycin Trough Salicylates Acetaminophen 10/11/18 10/11/18 10/11/18 04:45 04:45 06:50 WBC 25.8 H RBC 3.41 L Hgb Hct RDW Lymph % (Auto) [place] % (Auto) [place] # Seg Neutrophils % Seg Neuts % (Manual) 83.0 H Lymphocytes % (Manual) Seg Neutrophils # Seg Neutrophils # Man 21.4 H Lymphocytes # (Manual) Monocytes # (Manual) PT INR APTT POC ABG pH ABG pH POC ABG pCO2 POC ABG pO2 ABG pO2 ABG HCO3 ABG O2 Saturation ABG Base Excess ABG Hemoglobin Oxyhemoglobin Sodium Chloride Carbon Dioxide BUN 26 H Creatinine 0.6 L Glucose 134 H POC Glucose 134 H Lactic Acid Magnesium AST ALT Total Creatine Kinase C-Reactive Protein Total Protein Albumin Urine WBC (Auto) Vancomycin Trough Salicylates Acetaminophen 10/11/18 10/11/18 10/12/18 13:10 18:08 00:25 WBC RBC Hgb Hct RDW Lymph % (Auto) [place] % (Auto) [place] # Seg Neutrophils % Seg Neuts % (Manual) Lymphocytes % (Manual) Seg Neutrophils # Seg Neutrophils # Man Lymphocytes # (Manual) Monocytes # (Manual) PT INR APTT POC ABG pH ABG pH POC ABG pCO2 POC ABG pO2 ABG pO2 ABG HCO3 ABG O2 Saturation ABG Base Excess ABG Hemoglobin Oxyhemoglobin Sodium Chloride Carbon Dioxide BUN Creatinine Glucose POC Glucose 160 H 166 H 136 H Lactic Acid Magnesium AST ALT Total Creatine Kinase C-Reactive Protein Total Protein Albumin Urine WBC (Auto) Vancomycin Trough Salicylates Acetaminophen 10/12/18 10/12/18 10/12/18 03:56 04:17 04:17 WBC 19.2 H RBC 3.04 L Hgb 8.9 L Hct 27.2 L RDW Lymph % (Auto) 8.5 L [place] % (Auto) [place] # 1.4 H Seg Neutrophils % 84.2 H Seg Neuts % (Manual) Lymphocytes % (Manual) Seg Neutrophils # 16.2 H Seg Neutrophils # Man Lymphocytes # (Manual) Monocytes # (Manual) PT INR APTT POC ABG pH ABG pH POC ABG pCO2 POC ABG pO2 ABG pO2 77.9 L ABG HCO3 29.4 H ABG O2 Saturation ABG Base Excess 4.4 H ABG Hemoglobin 10.2 L Oxyhemoglobin 94.7 L Sodium Chloride Carbon Dioxide BUN Creatinine 0.5 L Glucose 139 H POC Glucose Lactic Acid Magnesium AST ALT Total Creatine Kinase C-Reactive Protein Total Protein Albumin Urine WBC (Auto) Vancomycin Trough Salicylates Acetaminophen 10/12/18 10/12/18 10/12/18 05:51 11:46 13:03 WBC RBC Hgb Hct RDW Lymph % (Auto) [place] % (Auto) [place] # Seg Neutrophils % Seg Neuts % (Manual) Lymphocytes % (Manual) Seg Neutrophils # Seg Neutrophils # Man Lymphocytes # (Manual) Monocytes # (Manual) PT INR APTT POC ABG pH ABG pH POC ABG pCO2 POC ABG pO2 ABG pO2 ABG HCO3 ABG O2 Saturation ABG Base Excess ABG Hemoglobin Oxyhemoglobin Sodium Chloride Carbon Dioxide BUN Creatinine Glucose POC Glucose 163 H 162 H Lactic Acid Magnesium AST ALT Total Creatine Kinase C-Reactive Protein 2.70 H Total Protein Albumin Urine WBC (Auto) Vancomycin Trough Salicylates Acetaminophen 10/12/18 10/12/18 10/12/18 17:44 22:33 23:54 WBC RBC Hgb Hct RDW Lymph % (Auto) [place] % (Auto) [place] # Seg Neutrophils % Seg Neuts % (Manual) Lymphocytes % (Manual) Seg Neutrophils # Seg Neutrophils # Man Lymphocytes # (Manual) Monocytes # (Manual) PT INR APTT POC ABG pH ABG pH POC ABG pCO2 POC ABG pO2 ABG pO2 ABG HCO3 ABG O2 Saturation ABG Base Excess ABG Hemoglobin Oxyhemoglobin Sodium Chloride Carbon Dioxide BUN Creatinine Glucose POC Glucose 143 H 180 H Lactic Acid Magnesium AST ALT Total Creatine Kinase C-Reactive Protein Total Protein Albumin Urine WBC (Auto) Vancomycin Trough 4.8 L Salicylates Acetaminophen 10/13/18 10/13/18 10/13/18 02:30 02:30 03:10 WBC 19.8 H RBC 3.12 L Hgb 9.2 L Hct 28.2 L RDW Lymph % (Auto) 8.1 L [place] % (Auto) 8.0 H [place] # 1.6 H Seg Neutrophils % 83.2 H Seg Neuts % (Manual) Lymphocytes % (Manual) Seg Neutrophils # 16.5 H Seg Neutrophils # Man Lymphocytes # (Manual) Monocytes # (Manual) PT INR APTT POC ABG pH ABG pH POC ABG pCO2 POC ABG pO2 ABG pO2 ABG HCO3 32.9 H ABG O2 Saturation ABG Base Excess 7.2 H ABG Hemoglobin 10.8 L Oxyhemoglobin Sodium Chloride Carbon Dioxide BUN Creatinine 0.3 L Glucose 139 H POC Glucose Lactic Acid Magnesium AST ALT Total Creatine Kinase C-Reactive Protein Total Protein Albumin Urine WBC (Auto) Vancomycin Trough Salicylates Acetaminophen 10/13/18 10/13/18 10/13/18 05:17 11:52 17:18 WBC RBC Hgb Hct RDW Lymph % (Auto) [place] % (Auto) [place] # Seg Neutrophils % Seg Neuts % (Manual) Lymphocytes % (Manual) Seg Neutrophils # Seg Neutrophils # Man Lymphocytes # (Manual) Monocytes # (Manual) PT INR APTT POC ABG pH ABG pH POC ABG pCO2 56.7 H POC ABG pO2 63 L ABG pO2 ABG HCO3 ABG O2 Saturation ABG Base Excess ABG Hemoglobin Oxyhemoglobin Sodium Chloride Carbon Dioxide BUN Creatinine Glucose POC Glucose 192 H 200 H Lactic Acid Magnesium AST ALT Total Creatine Kinase C-Reactive Protein Total Protein Albumin Urine WBC (Auto) Vancomycin Trough Salicylates Acetaminophen 10/13/18 10/14/18 10/14/18 17:53 00:00 03:55 WBC RBC Hgb Hct RDW Lymph % (Auto) [place] % (Auto) [place] # Seg Neutrophils % Seg Neuts % (Manual) Lymphocytes % (Manual) Seg Neutrophils # Seg Neutrophils # Man Lymphocytes # (Manual) Monocytes # (Manual) PT INR APTT POC ABG pH ABG pH POC ABG pCO2 POC ABG pO2 ABG pO2 ABG HCO3 34.1 H ABG O2 Saturation ABG Base Excess 8.4 H ABG Hemoglobin 10.6 L Oxyhemoglobin 94.8 L Sodium Chloride Carbon Dioxide BUN Creatinine Glucose POC Glucose 215 H 236 H Lactic Acid Magnesium AST ALT Total Creatine Kinase C-Reactive Protein Total Protein Albumin Urine WBC (Auto) Vancomycin Trough Salicylates Acetaminophen 10/14/18 10/14/18 10/14/18 05:00 08:05 08:05 WBC 16.8 H RBC 3.27 L Hgb 9.8 L Hct 29.7 L RDW 13.1 L Lymph % (Auto) 7.5 L [place] % (Auto) 8.6 H [place] # 1.4 H Seg Neutrophils % 82.4 H Seg Neuts % (Manual) Lymphocytes % (Manual) Seg Neutrophils # 13.8 H Seg Neutrophils # Man Lymphocytes # (Manual) Monocytes # (Manual) PT INR APTT POC ABG pH ABG pH POC ABG pCO2 POC ABG pO2 ABG pO2 ABG HCO3 ABG O2 Saturation ABG Base Excess ABG Hemoglobin Oxyhemoglobin Sodium Chloride Carbon Dioxide 33 H BUN Creatinine 0.3 L Glucose 140 H POC Glucose 170 H Lactic Acid Magnesium AST ALT Total Creatine Kinase C-Reactive Protein Total Protein Albumin Urine WBC (Auto) Vancomycin Trough Salicylates Acetaminophen 10/14/18 10/14/18 10/14/18 12:04 14:06 18:04 WBC RBC Hgb Hct RDW Lymph % (Auto) [place] % (Auto) [place] # Seg Neutrophils % Seg Neuts % (Manual) Lymphocytes % (Manual) Seg Neutrophils # Seg Neutrophils # Man Lymphocytes # (Manual) Monocytes # (Manual) PT INR APTT POC ABG pH 7.330 L ABG pH POC ABG pCO2 67.6 H POC ABG pO2 75 L ABG pO2 ABG HCO3 ABG O2 Saturation ABG Base Excess ABG Hemoglobin Oxyhemoglobin Sodium Chloride Carbon Dioxide BUN Creatinine Glucose POC Glucose 202 H 189 H Lactic Acid Magnesium AST ALT Total Creatine Kinase C-Reactive Protein Total Protein Albumin Urine WBC (Auto) Vancomycin Trough Salicylates Acetaminophen 10/14/18 10/15/18 10/15/18 23:16 04:58 05:03 WBC 18.0 H RBC 3.36 L Hgb Hct RDW Lymph % (Auto) 7.5 L [place] % (Auto) [place] # 1.3 H Seg Neutrophils % 83.2 H Seg Neuts % (Manual) Lymphocytes % (Manual) Seg Neutrophils # 15.0 H Seg Neutrophils # Man Lymphocytes # (Manual) Monocytes # (Manual) PT INR APTT POC ABG pH ABG pH POC ABG pCO2 54.9 H POC ABG pO2 72 L ABG pO2 ABG HCO3 ABG O2 Saturation ABG Base Excess ABG Hemoglobin Oxyhemoglobin Sodium Chloride Carbon Dioxide BUN Creatinine Glucose POC Glucose 187 H Lactic Acid Magnesium AST ALT Total Creatine Kinase C-Reactive Protein Total Protein Albumin Urine WBC (Auto) Vancomycin Trough Salicylates Acetaminophen 10/15/18 10/15/18 10/15/18 05:03 05:54 11:53 WBC RBC Hgb Hct RDW Lymph % (Auto) [place] % (Auto) [place] # Seg Neutrophils % Seg Neuts % (Manual) Lymphocytes % (Manual) Seg Neutrophils # Seg Neutrophils # Man Lymphocytes # (Manual) Monocytes # (Manual) PT INR APTT POC ABG pH ABG pH POC ABG pCO2 POC ABG pO2 ABG pO2 ABG HCO3 ABG O2 Saturation ABG Base Excess ABG Hemoglobin Oxyhemoglobin Sodium Chloride Carbon Dioxide 33 H BUN 19 H Creatinine 0.3 L Glucose 161 H POC Glucose 191 H 188 H Lactic Acid Magnesium AST ALT Total Creatine Kinase C-Reactive Protein Total Protein Albumin Urine WBC (Auto) Vancomycin Trough Salicylates Acetaminophen 10/15/18 10/15/18 10/16/18 17:30 23:15 05:05 WBC RBC Hgb Hct RDW Lymph % (Auto) [place] % (Auto) [place] # Seg Neutrophils % Seg Neuts % (Manual) Lymphocytes % (Manual) Seg Neutrophils # Seg Neutrophils # Man Lymphocytes # (Manual) Monocytes # (Manual) PT INR APTT POC ABG pH ABG pH 7.452 H POC ABG pCO2 POC ABG pO2 ABG pO2 66.6 L ABG HCO3 33.3 H ABG O2 Saturation 94.0 L ABG Base Excess 8.4 H ABG Hemoglobin 8.7 L Oxyhemoglobin 92.1 L Sodium Chloride Carbon Dioxide BUN Creatinine Glucose POC Glucose 178 H 177 H Lactic Acid Magnesium AST ALT Total Creatine Kinase C-Reactive Protein Total Protein Albumin Urine WBC (Auto) Vancomycin Trough Salicylates Acetaminophen 10/16/18 10/16/18 10/16/18 05:12 05:12 05:49 WBC 21.9 H RBC 3.62 L Hgb Hct RDW Lymph % (Auto) [place] % (Auto) [place] # Seg Neutrophils % Seg Neuts % (Manual) 93.0 H Lymphocytes % (Manual) 1.0 L Seg Neutrophils # Seg Neutrophils # Man 20.4 H Lymphocytes # (Manual) 0.2 L Monocytes # (Manual) 0.9 H PT INR APTT POC ABG pH ABG pH POC ABG pCO2 POC ABG pO2 ABG pO2 ABG HCO3 ABG O2 Saturation ABG Base Excess ABG Hemoglobin Oxyhemoglobin Sodium 136 L Chloride 96.3 L Carbon Dioxide 34 H BUN 20 H Creatinine 0.3 L Glucose 183 H POC Glucose 187 H Lactic Acid Magnesium AST ALT Total Creatine Kinase C-Reactive Protein Total Protein Albumin Urine WBC (Auto) Vancomycin Trough Salicylates Acetaminophen 10/16/18 10/16/18 10/16/18 11:25 17:41 23:08 WBC RBC Hgb Hct RDW Lymph % (Auto) [place] % (Auto) [place] # Seg Neutrophils % Seg Neuts % (Manual) Lymphocytes % (Manual) Seg Neutrophils # Seg Neutrophils # Man Lymphocytes # (Manual) Monocytes # (Manual) PT INR APTT POC ABG pH ABG pH POC ABG pCO2 POC ABG pO2 ABG pO2 ABG HCO3 ABG O2 Saturation ABG Base Excess ABG Hemoglobin Oxyhemoglobin Sodium Chloride Carbon Dioxide BUN Creatinine Glucose POC Glucose 200 H 184 H 166 H Lactic Acid Magnesium AST ALT Total Creatine Kinase C-Reactive Protein Total Protein Albumin Urine WBC (Auto) Vancomycin Trough Salicylates Acetaminophen 10/17/18 10/17/18 10/17/18 04:32 04:32 05:12 WBC 19.9 H RBC 3.53 L Hgb Hct RDW Lymph % (Auto) 6.8 L [place] % (Auto) 7.8 H [place] # 1.5 H Seg Neutrophils % 84.2 H Seg Neuts % (Manual) Lymphocytes % (Manual) Seg Neutrophils # 16.7 H Seg Neutrophils # Man Lymphocytes # (Manual) Monocytes # (Manual) PT INR APTT POC ABG pH ABG pH POC ABG pCO2 POC ABG pO2 ABG pO2 ABG HCO3 ABG O2 Saturation ABG Base Excess ABG Hemoglobin Oxyhemoglobin Sodium Chloride Carbon Dioxide 32 H BUN 20 H Creatinine 0.3 L Glucose 155 H POC Glucose 164 H Lactic Acid Magnesium AST ALT Total Creatine Kinase C-Reactive Protein Total Protein Albumin Urine WBC (Auto) Vancomycin Trough Salicylates Acetaminophen 10/17/18 10/17/18 10/17/18 12:24 13:21 18:03 WBC RBC Hgb Hct RDW Lymph % (Auto) [place] % (Auto) [place] # Seg Neutrophils % Seg Neuts % (Manual) Lymphocytes % (Manual) Seg Neutrophils # Seg Neutrophils # Man Lymphocytes # (Manual) Monocytes # (Manual) PT INR APTT POC ABG pH 7.337 L ABG pH POC ABG pCO2 68.3 H POC ABG pO2 79 L ABG pO2 ABG HCO3 ABG O2 Saturation ABG Base Excess ABG Hemoglobin Oxyhemoglobin Sodium Chloride Carbon Dioxide BUN Creatinine Glucose POC Glucose 169 H 139 H Lactic Acid Magnesium AST ALT Total Creatine Kinase C-Reactive Protein Total Protein Albumin Urine WBC (Auto) Vancomycin Trough Salicylates Acetaminophen 10/17/18 10/18/18 10/18/18 23:13 03:29 05:33 WBC RBC Hgb Hct RDW Lymph % (Auto) [place] % (Auto) [place] # Seg Neutrophils % Seg Neuts % (Manual) Lymphocytes % (Manual) Seg Neutrophils # Seg Neutrophils # Man Lymphocytes # (Manual) Monocytes # (Manual) PT INR APTT POC ABG pH 7.472 H ABG pH POC ABG pCO2 POC ABG pO2 ABG pO2 ABG HCO3 ABG O2 Saturation ABG Base Excess ABG Hemoglobin Oxyhemoglobin Sodium Chloride Carbon Dioxide BUN Creatinine Glucose POC Glucose 170 H 151 H Lactic Acid Magnesium AST ALT Total Creatine Kinase C-Reactive Protein Total Protein Albumin Urine WBC (Auto) Vancomycin Trough Salicylates Acetaminophen 10/18/18 11:37 WBC RBC Hgb Hct RDW Lymph % (Auto) [place] % (Auto) [place] # Seg Neutrophils % Seg Neuts % (Manual) Lymphocytes % (Manual) Seg Neutrophils # Seg Neutrophils # Man Lymphocytes # (Manual) Monocytes # (Manual) PT INR APTT POC ABG pH ABG pH POC ABG pCO2 POC ABG pO2 ABG pO2 ABG HCO3 ABG O2 Saturation ABG Base Excess ABG Hemoglobin Oxyhemoglobin Sodium Chloride Carbon Dioxide BUN Creatinine Glucose POC Glucose 170 H Lactic Acid Magnesium AST ALT Total Creatine Kinase C-Reactive Protein Total Protein Albumin Urine WBC (Auto) Vancomycin Trough Salicylates Acetaminophen
[2018-10-18] MEDS: LOPRESSOR IV PRN (22:52)
[2018-10-19] MEDS: CARDIZEM PO SCH ×5 (00:09→23:42)
[2018-10-19] MEDS: HumaLOG SUB-Q SCH ×5 (00:09→23:42)
[2018-10-19] MEDS: QUESTRAN PO SCH (00:16)
--- NOTE | 2018-10-19 08:50 | XRay Report ---
CHEST 1 VIEW INDICATION: Reevaluate left lower lobe pneumonia. COMPARISON: 10/17/2018 FINDINGS: Support devices: Endotracheal tube and nasogastric tube remain in adequate position. Heart: Within normal limits. Lungs/Pleura: Left lower lobe opacity and small left pleural effusion have decreased by 50% since the previous exam. The lungs are hyperinflated suggesting underlying emphysematous changes. No pneumotho rax. Additional findings: None. IMPRESSION: 50% improvement in the left lower lobe opacity and small left pleural effusion. Signer Name: Khoi Cheung Jr, MD Signed: 10/19/2018 8:46 AM Workstation Name: [id number]
[2018-10-19 09:12] LABS: Hematocrit 29.7 % (30.3-42.9); Hemoglobin 9.5 gm/dl (10.1-14.3); Mean Corpuscular HGB Conc 32 % (30-34); Mean Corpuscular Volume 91 fl (79-97); Platelet Count 306 K/mm3 (140-440); Red Blood Count 3.27 M/mm3 (3.65-5.03); Red Cell Distribution Width 14.2 % (13.2-15.2)
[2018-10-19 09:34] LABS: BUN/Creatinine Ratio 60; Blood Urea Nitrogen 18 mg/dL (7-17); Calcium 10.5 mg/dL (8.4-10.2); Hemolysis Index 1
[2018-10-19] MEDS: PROVIGIL PO SCH (09:37)
[2018-10-19] MEDS: KEPPRA PO SCH ×2 (09:37→21:03)
[2018-10-19] MEDS: LOPRESSOR PO SCH ×2 (09:37→21:02)
[2018-10-19] MEDS: ELIQUIS PO SCH ×2 (09:37→22:05)
[2018-10-19] MEDS: APRESOLINE PO SCH ×2 (09:38→21:02)
[2018-10-19] MEDS: PEPCID PO SCH ×2 (09:38→21:02)
[2018-10-19] MEDS: SODIUM CHLORIDE FLUSH SYRINGE 10 ML IV SCH ×2 (09:39→21:03)
[2018-10-19] MEDS: TYLENOL FEEDTUBE PRN ×3 (09:49→20:58)
--- NOTE | 2018-10-19 10:55 | Progress Note ---
Assessment and Plan s/p cardiopulmonary arrest-OOH with ROSC Acute hyoxemic respiratory failure on MVS Acute hypercapnic respiratory failure Acute encephalopathy- metabolic Sepsis Aspiration pneumonia LLL Left pleural effusion Myoclonic jerks, post arrest Atrial fibrillation with RVR -VAP bundle addressed -Daily SBT on hold based on family preference -Supplemental O2 to keep O2 sats >92 -ABG and CXR prn -AEDs on Keppra -VTE prophylaxis -Stress ulcer prophylaxis -Continue OGT for nutrition and oral medications - Continue tube feeding for nutritional support; accucheck with glycemic control, target blood glucose 140-180mg/dL -Aspiration precautions, HOB >40 -Chronic home medications -Supportive care -Mobility for pressure ulcer prevention -Critical care bundles addressed -Seizure precautions Reports per [facility] staff that when they have tried to get place the patient on SBT/PSV the family have been threatening and rude. They want us to hold off on weaning trials, because she had an episode of desaturations during one PSV trial. Discussed the need for a decision for goals of care. Trach-PEG or compassionate extubation. Scheduled a meeting fro Tuesday 9am-930pm. The son who was present asked about options as to where she may go if she had a trach and PEG. I explained the need for all 4 sons to participate, with the option of getting the son who lives in [place] on the phone for the call. Notified Case management about the meeting. CONDITION: CRITICAL PROGNOSIS: GUARDED TO GRAVE CODE STATUS: DNAR The high probability of a clinically significant, sudden or life threatening deterioration of the [Neurology Respiratory, Cardiovascular] system(s) required my full and direct attention, intervention and personal management. The aggregate critical care time was [35] minutes. This time is in addition to time spent performing reported procedures but includes the following: [x] Data Review and interpretation [x] Patient assessment and monitoring of vital signs [x] Documentation [x] Medication orders and management Subjective Date of service: 10/19/18 Principal diagnosis: Cardiac arrest with ROSC; Ac hypoxemic resp failure; Ac. encephalopathy Interval history: Follow up for: OOH cardiac arrest with ROSC; acute hypoxic-hypercapnic respiratory failure; myoclonic jerks; acute metabolic encephalopathy Seen ad examined. 24 hour events reviewed. Vitals, labs, medications, chart and imaging reviewed. No acute overnight events reported Resting peacefully in bed; not in any distress, no fevers, no vomiting reported. Vitals, labs,medications, chart reviewed. Son at the bedside, states he wants her tube feeding changed because of the insulin she is on. I discussed that her blood glucose if less than 180mg/dL and hyperglycemia was not a concern at this time. Discussed in ICU-IDT rounds. Based on documentation from yesterday, patient is now DNAR Objective Vital Signs - 12hr 10/18/18 10/18/18 10/18/18 22:55 23:00 23:48 Temperature Pulse Rate 86 81 80 Pulse Rate [ From Monitor] Respiratory 20 Rate Blood Pressure 138/56 136/61 136/61 O2 Sat by Pulse 100 100 Oximetry 10/18/18 10/19/18 10/19/18 23:49 00:00 00:09 Temperature 98.4 F Pulse Rate 85 81 85 Pulse Rate [ 85 From Monitor] Respiratory 15 13 Rate Blood Pressure 136/61 132/54 132/54 O2 Sat by Pulse 100 100 Oximetry 10/19/18 10/19/18 10/19/18 01:00 02:00 03:00 Temperature Pulse Rate 64 77 75 Pulse Rate [ 77 From Monitor] Respiratory 12 14 13 Rate Blood Pressure 117/49 130/55 121/53 O2 Sat by Pulse 100 97 99 Oximetry 10/19/18 10/19/18 10/19/18 04:00 05:00 06:00 Temperature 98.9 F Pulse Rate 80 85 86 Pulse Rate [ 77 From Monitor] Respiratory 13 13 14 Rate Blood Pressure 133/57 142/61 139/61 O2 Sat by Pulse 100 98 99 Oximetry 10/19/18 10/19/18 10/19/18 07:00 07:53 08:00 Temperature 98.6 F Pulse Rate 90 87 91 H Pulse Rate [ 91 H From Monitor] Respiratory 13 11 L Rate Blood Pressure 142/59 142/59 135/57 O2 Sat by Pulse 98 100 100 Oximetry 10/19/18 10/19/18 10/19/18 08:20 09:37 09:38 Temperature Pulse Rate 91 H 80 80 Pulse Rate [ From Monitor] Respiratory Rate Blood Pressure 135/57 139/59 139/59 O2 Sat by Pulse Oximetry Constitutional: no acute distress, other (+ myoclonic jerks during sedation vacations) Eyes: non-icteric ENT: oropharynx moist, other (ETT approx 23cm SUELLEN) Neck: supple, no lymphadenopathy, no JVD Effort: normal Ascultation: Bilateral: diminished breath sounds, rhonchi Percussion: Bilateral: not dull Cardiovascular: regular rate and rhythm, other (S1,S2) Gastrointestinal: normoactive bowel sounds, soft, non-tender, other (FMS in place) Integumentary: normal Extremities: no cyanosis, no edema, pink and warm, pulses normal Neurologic: unable to assess, other (posturing to painful stimuli, Pupils are minimally reactive) Psychiatric: other (unable to assess) CBC and BMP: 10/21/18 04:11 10/21/18 04:11 ABG, PT/INR, D-dimer: ABG POC ABG pH 7.472 (7.35-7.45) H 10/18/18 03:29 ABG pH 7.452 pH Units (7.350-7.450) H 10/16/18 05:05 POC ABG pCO2 43.6 (35-45) 10/18/18 03:29 ABG pCO2 48.7 mm Hg 10/16/18 05:05 POC ABG pO2 97 (80-105) 10/18/18 03:29 ABG pO2 66.6 mm Hg (80.0-90.0) L 10/16/18 05:05 POC ABG HCO3 31.9 (22-26 mml/L) 10/18/18 03:29 POC ABG Total CO2 33 (23-27mmol/L) 10/18/18 03:29 POC ABG O2 Sat 98 10/18/18 03:29 ABG O2 Saturation 94.0 % (95.0-99.0) L 10/16/18 05:05 PT/INR, D-dimer PT 16.6 Sec. (12.2-14.9) H 10/09/18 10:50 INR 1.38 (0.87-1.13) H 10/09/18 10:50 Abnormal lab findings: Abnormal Labs 10/09/18 10/09/18 10/09/18 10:14 10:50 10:50 WBC RBC Hgb Hct RDW Lymph % (Auto) [place] % (Auto) [place] # Seg Neutrophils % Seg Neuts % (Manual) Lymphocytes % (Manual) Seg Neutrophils # Seg Neutrophils # Man Lymphocytes # (Manual) Monocytes # (Manual) PT 16.6 H INR 1.38 H APTT 39.4 H POC ABG pH ABG pH POC ABG pCO2 POC ABG pO2 ABG pO2 ABG HCO3 ABG O2 Saturation ABG Base Excess ABG Hemoglobin Oxyhemoglobin Sodium Chloride 90.3 L Carbon Dioxide BUN 21 H Creatinine Glucose 315 H POC Glucose 344 H Lactic Acid Calcium Magnesium AST 51 H ALT 67 H Total Creatine Kinase C-Reactive Protein Total Protein 5.3 L Albumin 3.0 L Urine WBC (Auto) Vancomycin Trough Salicylates Acetaminophen 10/09/18 10/09/18 10/09/18 10:50 10:50 10:50 WBC RBC Hgb Hct RDW Lymph % (Auto) [place] % (Auto) [place] # Seg Neutrophils % Seg Neuts % (Manual) Lymphocytes % (Manual) Seg Neutrophils # Seg Neutrophils # Man Lymphocytes # (Manual) Monocytes # (Manual) PT INR APTT POC ABG pH ABG pH POC ABG pCO2 POC ABG pO2 ABG pO2 ABG HCO3 ABG O2 Saturation ABG Base Excess ABG Hemoglobin Oxyhemoglobin Sodium Chloride Carbon Dioxide BUN Creatinine Glucose POC Glucose Lactic Acid Calcium Magnesium 3.70 H AST ALT Total Creatine Kinase 171 H C-Reactive Protein Total Protein Albumin Urine WBC (Auto) Vancomycin Trough Salicylates < 0.3 L Acetaminophen < 5.0 L 10/09/18 10/09/18 10/09/18 10:50 10:55 11:38 WBC 31.3 H RBC Hgb Hct RDW 13.0 L Lymph % (Auto) [place] % (Auto) [place] # Seg Neutrophils % Seg Neuts % (Manual) 91.5 H Lymphocytes % (Manual) 4.5 L Seg Neutrophils # Seg Neutrophils # Man 28.6 H Lymphocytes # (Manual) Monocytes # (Manual) 1.1 H PT INR APTT POC ABG pH 7.243 L ABG pH POC ABG pCO2 68.0 H POC ABG pO2 389 H ABG pO2 ABG HCO3 ABG O2 Saturation ABG Base Excess ABG Hemoglobin Oxyhemoglobin Sodium Chloride Carbon Dioxide BUN Creatinine Glucose POC Glucose Lactic Acid 9.30 H* Calcium Magnesium AST ALT Total Creatine Kinase C-Reactive Protein Total Protein Albumin Urine WBC (Auto) Vancomycin Trough Salicylates Acetaminophen 10/09/18 10/09/18 10/09/18 12:12 15:28 16:27 WBC RBC Hgb Hct RDW Lymph % (Auto) [place] % (Auto) [place] # Seg Neutrophils % Seg Neuts % (Manual) Lymphocytes % (Manual) Seg Neutrophils # Seg Neutrophils # Man Lymphocytes # (Manual) Monocytes # (Manual) PT INR APTT POC ABG pH 7.598 H ABG pH POC ABG pCO2 POC ABG pO2 61 L ABG pO2 ABG HCO3 ABG O2 Saturation ABG Base Excess ABG Hemoglobin Oxyhemoglobin Sodium Chloride Carbon Dioxide BUN Creatinine Glucose POC Glucose 173 H Lactic Acid Calcium Magnesium AST ALT Total Creatine Kinase C-Reactive Protein Total Protein Albumin Urine WBC (Auto) 8.0 H Vancomycin Trough Salicylates Acetaminophen 10/09/18 10/09/18 10/09/18 16:44 16:44 18:38 WBC RBC Hgb Hct RDW Lymph % (Auto) [place] % (Auto) [place] # Seg Neutrophils % Seg Neuts % (Manual) Lymphocytes % (Manual) Seg Neutrophils # Seg Neutrophils # Man Lymphocytes # (Manual) Monocytes # (Manual) PT INR APTT POC ABG pH ABG pH POC ABG pCO2 POC ABG pO2 ABG pO2 ABG HCO3 ABG O2 Saturation ABG Base Excess ABG Hemoglobin Oxyhemoglobin Sodium Chloride Carbon Dioxide BUN Creatinine Glucose POC Glucose 177 H Lactic Acid 3.80 H* 3.70 H* Calcium Magnesium AST ALT Total Creatine Kinase C-Reactive Protein Total Protein Albumin Urine WBC (Auto) Vancomycin Trough Salicylates Acetaminophen 10/10/18 10/10/18 10/10/18 00:33 04:24 05:32 WBC RBC Hgb Hct RDW Lymph % (Auto) [place] % (Auto) [place] # Seg Neutrophils % Seg Neuts % (Manual) Lymphocytes % (Manual) Seg Neutrophils # Seg Neutrophils # Man Lymphocytes # (Manual) Monocytes # (Manual) PT INR APTT POC ABG pH 7.602 H ABG pH POC ABG pCO2 POC ABG pO2 170 H ABG pO2 ABG HCO3 ABG O2 Saturation ABG Base Excess ABG Hemoglobin Oxyhemoglobin Sodium Chloride Carbon Dioxide BUN Creatinine Glucose POC Glucose 177 H 190 H Lactic Acid Calcium Magnesium AST ALT Total Creatine Kinase C-Reactive Protein Total Protein Albumin Urine WBC (Auto) Vancomycin Trough Salicylates Acetaminophen 10/10/18 10/10/18 10/10/18 07:54 07:54 12:18 WBC 38.6 H RBC Hgb Hct RDW Lymph % (Auto) [place] % (Auto) [place] # Seg Neutrophils % Seg Neuts % (Manual) Lymphocytes % (Manual) Seg Neutrophils # Seg Neutrophils # Man Lymphocytes # (Manual) Monocytes # (Manual) PT INR APTT POC ABG pH ABG pH POC ABG pCO2 POC ABG pO2 ABG pO2 ABG HCO3 ABG O2 Saturation ABG Base Excess ABG Hemoglobin Oxyhemoglobin Sodium Chloride Carbon Dioxide BUN 31 H Creatinine Glucose 124 H POC Glucose 151 H Lactic Acid Calcium Magnesium AST ALT Total Creatine Kinase C-Reactive Protein Total Protein Albumin Urine WBC (Auto) Vancomycin Trough Salicylates Acetaminophen 10/10/18 10/10/18 10/11/18 18:17 23:09 03:40 WBC RBC Hgb Hct RDW Lymph % (Auto) [place] % (Auto) [place] # Seg Neutrophils % Seg Neuts % (Manual) Lymphocytes % (Manual) Seg Neutrophils # Seg Neutrophils # Man Lymphocytes # (Manual) Monocytes # (Manual) PT INR APTT POC ABG pH ABG pH POC ABG pCO2 POC ABG pO2 ABG pO2 91.1 H ABG HCO3 28.8 H ABG O2 Saturation ABG Base Excess ABG Hemoglobin 7.6 L Oxyhemoglobin Sodium Chloride Carbon Dioxide BUN Creatinine Glucose POC Glucose 132 H 124 H Lactic Acid Calcium Magnesium AST ALT Total Creatine Kinase C-Reactive Protein Total Protein Albumin Urine WBC (Auto) Vancomycin Trough Salicylates Acetaminophen 10/11/18 10/11/18 10/11/18 04:45 04:45 06:50 WBC 25.8 H RBC 3.41 L Hgb Hct RDW Lymph % (Auto) [place] % (Auto) [place] # Seg Neutrophils % Seg Neuts % (Manual) 83.0 H Lymphocytes % (Manual) Seg Neutrophils # Seg Neutrophils # Man 21.4 H Lymphocytes # (Manual) Monocytes # (Manual) PT INR APTT POC ABG pH ABG pH POC ABG pCO2 POC ABG pO2 ABG pO2 ABG HCO3 ABG O2 Saturation ABG Base Excess ABG Hemoglobin Oxyhemoglobin Sodium Chloride Carbon Dioxide BUN 26 H Creatinine 0.6 L Glucose 134 H POC Glucose 134 H Lactic Acid Calcium Magnesium AST ALT Total Creatine Kinase C-Reactive Protein Total Protein Albumin Urine WBC (Auto) Vancomycin Trough Salicylates Acetaminophen 10/11/18 10/11/18 10/12/18 13:10 18:08 00:25 WBC RBC Hgb Hct RDW Lymph % (Auto) [place] % (Auto) [place] # Seg Neutrophils % Seg Neuts % (Manual) Lymphocytes % (Manual) Seg Neutrophils # Seg Neutrophils # Man Lymphocytes # (Manual) Monocytes # (Manual) PT INR APTT POC ABG pH ABG pH POC ABG pCO2 POC ABG pO2 ABG pO2 ABG HCO3 ABG O2 Saturation ABG Base Excess ABG Hemoglobin Oxyhemoglobin Sodium Chloride Carbon Dioxide BUN Creatinine Glucose POC Glucose 160 H 166 H 136 H Lactic Acid Calcium Magnesium AST ALT Total Creatine Kinase C-Reactive Protein Total Protein Albumin Urine WBC (Auto) Vancomycin Trough Salicylates Acetaminophen 10/12/18 10/12/18 10/12/18 03:56 04:17 04:17 WBC 19.2 H RBC 3.04 L Hgb 8.9 L Hct 27.2 L RDW Lymph % (Auto) 8.5 L [place] % (Auto) [place] # 1.4 H Seg Neutrophils % 84.2 H Seg Neuts % (Manual) Lymphocytes % (Manual) Seg Neutrophils # 16.2 H Seg Neutrophils # Man Lymphocytes # (Manual) Monocytes # (Manual) PT INR APTT POC ABG pH ABG pH POC ABG pCO2 POC ABG pO2 ABG pO2 77.9 L ABG HCO3 29.4 H ABG O2 Saturation ABG Base Excess 4.4 H ABG Hemoglobin 10.2 L Oxyhemoglobin 94.7 L Sodium Chloride Carbon Dioxide BUN Creatinine 0.5 L Glucose 139 H POC Glucose Lactic Acid Calcium Magnesium AST ALT Total Creatine Kinase C-Reactive Protein Total Protein Albumin Urine WBC (Auto) Vancomycin Trough Salicylates Acetaminophen 10/12/18 10/12/18 10/12/18 05:51 11:46 13:03 WBC RBC Hgb Hct RDW Lymph % (Auto) [place] % (Auto) [place] # Seg Neutrophils % Seg Neuts % (Manual) Lymphocytes % (Manual) Seg Neutrophils # Seg Neutrophils # Man Lymphocytes # (Manual) Monocytes # (Manual) PT INR APTT POC ABG pH ABG pH POC ABG pCO2 POC ABG pO2 ABG pO2 ABG HCO3 ABG O2 Saturation ABG Base Excess ABG Hemoglobin Oxyhemoglobin Sodium Chloride Carbon Dioxide BUN Creatinine Glucose POC Glucose 163 H 162 H Lactic Acid Calcium Magnesium AST ALT Total Creatine Kinase C-Reactive Protein 2.70 H Total Protein Albumin Urine WBC (Auto) Vancomycin Trough Salicylates Acetaminophen 09/05/19 09/05/19 09/05/19 17:44 22:33 23:54 WBC RBC Hgb Hct RDW Lymph % (Auto) [place] % (Auto) [place] # Seg Neutrophils % Seg Neuts % (Manual) Lymphocytes % (Manual) Seg Neutrophils # Seg Neutrophils # Man Lymphocytes # (Manual) Monocytes # (Manual) PT INR APTT POC ABG pH ABG pH POC ABG pCO2 POC ABG pO2 ABG pO2 ABG HCO3 ABG O2 Saturation ABG Base Excess ABG Hemoglobin Oxyhemoglobin Sodium Chloride Carbon Dioxide BUN Creatinine Glucose POC Glucose 143 H 180 H Lactic Acid Calcium Magnesium AST ALT Total Creatine Kinase C-Reactive Protein Total Protein Albumin Urine WBC (Auto) Vancomycin Trough 4.8 L Salicylates Acetaminophen 10/13/18 10/13/18 10/13/18 02:30 02:30 03:10 WBC 19.8 H RBC 3.12 L Hgb 9.2 L Hct 28.2 L RDW Lymph % (Auto) 8.1 L [place] % (Auto) 8.0 H [place] # 1.6 H Seg Neutrophils % 83.2 H Seg Neuts % (Manual) Lymphocytes % (Manual) Seg Neutrophils # 16.5 H Seg Neutrophils # Man Lymphocytes # (Manual) Monocytes # (Manual) PT INR APTT POC ABG pH ABG pH POC ABG pCO2 POC ABG pO2 ABG pO2 ABG HCO3 32.9 H ABG O2 Saturation ABG Base Excess 7.2 H ABG Hemoglobin 10.8 L Oxyhemoglobin Sodium Chloride Carbon Dioxide BUN Creatinine 0.3 L Glucose 139 H POC Glucose Lactic Acid Calcium Magnesium AST ALT Total Creatine Kinase C-Reactive Protein Total Protein Albumin Urine WBC (Auto) Vancomycin Trough Salicylates Acetaminophen 10/13/18 10/13/18 10/13/18 05:17 11:52 17:18 WBC RBC Hgb Hct RDW Lymph % (Auto) [place] % (Auto) [place] # Seg Neutrophils % Seg Neuts % (Manual) Lymphocytes % (Manual) Seg Neutrophils # Seg Neutrophils # Man Lymphocytes # (Manual) Monocytes # (Manual) PT INR APTT POC ABG pH ABG pH POC ABG pCO2 56.7 H POC ABG pO2 63 L ABG pO2 ABG HCO3 ABG O2 Saturation ABG Base Excess ABG Hemoglobin Oxyhemoglobin Sodium Chloride Carbon Dioxide BUN Creatinine Glucose POC Glucose 192 H 200 H Lactic Acid Calcium Magnesium AST ALT Total Creatine Kinase C-Reactive Protein Total Protein Albumin Urine WBC (Auto) Vancomycin Trough Salicylates Acetaminophen 10/13/18 10/14/18 10/14/18 17:53 00:00 03:55 WBC RBC Hgb Hct RDW Lymph % (Auto) [place] % (Auto) [place] # Seg Neutrophils % Seg Neuts % (Manual) Lymphocytes % (Manual) Seg Neutrophils # Seg Neutrophils # Man Lymphocytes # (Manual) Monocytes # (Manual) PT INR APTT POC ABG pH ABG pH POC ABG pCO2 POC ABG pO2 ABG pO2 ABG HCO3 34.1 H ABG O2 Saturation ABG Base Excess 8.4 H ABG Hemoglobin 10.6 L Oxyhemoglobin 94.8 L Sodium Chloride Carbon Dioxide BUN Creatinine Glucose POC Glucose 215 H 236 H Lactic Acid Calcium Magnesium AST ALT Total Creatine Kinase C-Reactive Protein Total Protein Albumin Urine WBC (Auto) Vancomycin Trough Salicylates Acetaminophen 10/14/18 10/14/18 10/14/18 05:00 08:05 08:05 WBC 16.8 H RBC 3.27 L Hgb 9.8 L Hct 29.7 L RDW 13.1 L Lymph % (Auto) 7.5 L [place] % (Auto) 8.6 H [place] # 1.4 H Seg Neutrophils % 82.4 H Seg Neuts % (Manual) Lymphocytes % (Manual) Seg Neutrophils # 13.8 H Seg Neutrophils # Man Lymphocytes # (Manual) Monocytes # (Manual) PT INR APTT POC ABG pH ABG pH POC ABG pCO2 POC ABG pO2 ABG pO2 ABG HCO3 ABG O2 Saturation ABG Base Excess ABG Hemoglobin Oxyhemoglobin Sodium Chloride Carbon Dioxide 33 H BUN Creatinine 0.3 L Glucose 140 H POC Glucose 170 H Lactic Acid Calcium Magnesium AST ALT Total Creatine Kinase C-Reactive Protein Total Protein Albumin Urine WBC (Auto) Vancomycin Trough Salicylates Acetaminophen 10/14/18 10/14/18 10/14/18 12:04 14:06 18:04 WBC RBC Hgb Hct RDW Lymph % (Auto) [place] % (Auto) [place] # Seg Neutrophils % Seg Neuts % (Manual) Lymphocytes % (Manual) Seg Neutrophils # Seg Neutrophils # Man Lymphocytes # (Manual) Monocytes # (Manual) PT INR APTT POC ABG pH 7.330 L ABG pH POC ABG pCO2 67.6 H POC ABG pO2 75 L ABG pO2 ABG HCO3 ABG O2 Saturation ABG Base Excess ABG Hemoglobin Oxyhemoglobin Sodium Chloride Carbon Dioxide BUN Creatinine Glucose POC Glucose 202 H 189 H Lactic Acid Calcium Magnesium AST ALT Total Creatine Kinase C-Reactive Protein Total Protein Albumin Urine WBC (Auto) Vancomycin Trough Salicylates Acetaminophen 10/14/18 10/15/18 10/15/18 23:16 04:58 05:03 WBC 18.0 H RBC 3.36 L Hgb Hct RDW Lymph % (Auto) 7.5 L [place] % (Auto) [place] # 1.3 H Seg Neutrophils % 83.2 H Seg Neuts % (Manual) Lymphocytes % (Manual) Seg Neutrophils # 15.0 H Seg Neutrophils # Man Lymphocytes # (Manual) Monocytes # (Manual) PT INR APTT POC ABG pH ABG pH POC ABG pCO2 54.9 H POC ABG pO2 72 L ABG pO2 ABG HCO3 ABG O2 Saturation ABG Base Excess ABG Hemoglobin Oxyhemoglobin Sodium Chloride Carbon Dioxide BUN Creatinine Glucose POC Glucose 187 H Lactic Acid Calcium Magnesium AST ALT Total Creatine Kinase C-Reactive Protein Total Protein Albumin Urine WBC (Auto) Vancomycin Trough Salicylates Acetaminophen 10/15/18 10/15/18 10/15/18 05:03 05:54 11:53 WBC RBC Hgb Hct RDW Lymph % (Auto) [place] % (Auto) [place] # Seg Neutrophils % Seg Neuts % (Manual) Lymphocytes % (Manual) Seg Neutrophils # Seg Neutrophils # Man Lymphocytes # (Manual) Monocytes # (Manual) PT INR APTT POC ABG pH ABG pH POC ABG pCO2 POC ABG pO2 ABG pO2 ABG HCO3 ABG O2 Saturation ABG Base Excess ABG Hemoglobin Oxyhemoglobin Sodium Chloride Carbon Dioxide 33 H BUN 19 H Creatinine 0.3 L Glucose 161 H POC Glucose 191 H 188 H Lactic Acid Calcium Magnesium AST ALT Total Creatine Kinase C-Reactive Protein Total Protein Albumin Urine WBC (Auto) Vancomycin Trough Salicylates Acetaminophen 10/15/18 10/15/18 10/16/18 17:30 23:15 05:05 WBC RBC Hgb Hct RDW Lymph % (Auto) [place] % (Auto) [place] # Seg Neutrophils % Seg Neuts % (Manual) Lymphocytes % (Manual) Seg Neutrophils # Seg Neutrophils # Man Lymphocytes # (Manual) Monocytes # (Manual) PT INR APTT POC ABG pH ABG pH 7.452 H POC ABG pCO2 POC ABG pO2 ABG pO2 66.6 L ABG HCO3 33.3 H ABG O2 Saturation 94.0 L ABG Base Excess 8.4 H ABG Hemoglobin 8.7 L Oxyhemoglobin 92.1 L Sodium Chloride Carbon Dioxide BUN Creatinine Glucose POC Glucose 178 H 177 H Lactic Acid Calcium Magnesium AST ALT Total Creatine Kinase C-Reactive Protein Total Protein Albumin Urine WBC (Auto) Vancomycin Trough Salicylates Acetaminophen 10/16/18 10/16/18 10/16/18 05:12 05:12 05:49 WBC 21.9 H RBC 3.62 L Hgb Hct RDW Lymph % (Auto) [place] % (Auto) [place] # Seg Neutrophils % Seg Neuts % (Manual) 93.0 H Lymphocytes % (Manual) 1.0 L Seg Neutrophils # Seg Neutrophils # Man 20.4 H Lymphocytes # (Manual) 0.2 L Monocytes # (Manual) 0.9 H PT INR APTT POC ABG pH ABG pH POC ABG pCO2 POC ABG pO2 ABG pO2 ABG HCO3 ABG O2 Saturation ABG Base Excess ABG Hemoglobin Oxyhemoglobin Sodium 136 L Chloride 96.3 L Carbon Dioxide 34 H BUN 20 H Creatinine 0.3 L Glucose 183 H POC Glucose 187 H Lactic Acid Calcium Magnesium AST ALT Total Creatine Kinase C-Reactive Protein Total Protein Albumin Urine WBC (Auto) Vancomycin Trough Salicylates Acetaminophen 10/16/18 10/16/18 10/16/18 11:25 17:41 23:08 WBC RBC Hgb Hct RDW Lymph % (Auto) [place] % (Auto) [place] # Seg Neutrophils % Seg Neuts % (Manual) Lymphocytes % (Manual) Seg Neutrophils # Seg Neutrophils # Man Lymphocytes # (Manual) Monocytes # (Manual) PT INR APTT POC ABG pH ABG pH POC ABG pCO2 POC ABG pO2 ABG pO2 ABG HCO3 ABG O2 Saturation ABG Base Excess ABG Hemoglobin Oxyhemoglobin Sodium Chloride Carbon Dioxide BUN Creatinine Glucose POC Glucose 200 H 184 H 166 H Lactic Acid Calcium Magnesium AST ALT Total Creatine Kinase C-Reactive Protein Total Protein Albumin Urine WBC (Auto) Vancomycin Trough Salicylates Acetaminophen 10/17/18 10/17/18 10/17/18 04:32 04:32 05:12 WBC 19.9 H RBC 3.53 L Hgb Hct RDW Lymph % (Auto) 6.8 L [place] % (Auto) 7.8 H [place] # 1.5 H Seg Neutrophils % 84.2 H Seg Neuts % (Manual) Lymphocytes % (Manual) Seg Neutrophils # 16.7 H Seg Neutrophils # Man Lymphocytes # (Manual) Monocytes # (Manual) PT INR APTT POC ABG pH ABG pH POC ABG pCO2 POC ABG pO2 ABG pO2 ABG HCO3 ABG O2 Saturation ABG Base Excess ABG Hemoglobin Oxyhemoglobin Sodium Chloride Carbon Dioxide 32 H BUN 20 H Creatinine 0.3 L Glucose 155 H POC Glucose 164 H Lactic Acid Calcium Magnesium AST ALT Total Creatine Kinase C-Reactive Protein Total Protein Albumin Urine WBC (Auto) Vancomycin Trough Salicylates Acetaminophen 10/17/18 10/17/18 10/17/18 12:24 13:21 18:03 WBC RBC Hgb Hct RDW Lymph % (Auto) [place] % (Auto) [place] # Seg Neutrophils % Seg Neuts % (Manual) Lymphocytes % (Manual) Seg Neutrophils # Seg Neutrophils # Man Lymphocytes # (Manual) Monocytes # (Manual) PT INR APTT POC ABG pH 7.337 L ABG pH POC ABG pCO2 68.3 H POC ABG pO2 79 L ABG pO2 ABG HCO3 ABG O2 Saturation ABG Base Excess ABG Hemoglobin Oxyhemoglobin Sodium Chloride Carbon Dioxide BUN Creatinine Glucose POC Glucose 169 H 139 H Lactic Acid Calcium Magnesium AST ALT Total Creatine Kinase C-Reactive Protein Total Protein Albumin Urine WBC (Auto) Vancomycin Trough Salicylates Acetaminophen 10/17/18 10/18/18 10/18/18 23:13 03:29 05:33 WBC RBC Hgb Hct RDW Lymph % (Auto) [place] % (Auto) [place] # Seg Neutrophils % Seg Neuts % (Manual) Lymphocytes % (Manual) Seg Neutrophils # Seg Neutrophils # Man Lymphocytes # (Manual) Monocytes # (Manual) PT INR APTT POC ABG pH 7.472 H ABG pH POC ABG pCO2 POC ABG pO2 ABG pO2 ABG HCO3 ABG O2 Saturation ABG Base Excess ABG Hemoglobin Oxyhemoglobin Sodium Chloride Carbon Dioxide BUN Creatinine Glucose POC Glucose 170 H 151 H Lactic Acid Calcium Magnesium AST ALT Total Creatine Kinase C-Reactive Protein Total Protein Albumin Urine WBC (Auto) Vancomycin Trough Salicylates Acetaminophen 10/18/18 10/18/18 10/18/18 11:37 18:06 23:23 WBC RBC Hgb Hct RDW Lymph % (Auto) [place] % (Auto) [place] # Seg Neutrophils % Seg Neuts % (Manual) Lymphocytes % (Manual) Seg Neutrophils # Seg Neutrophils # Man Lymphocytes # (Manual) Monocytes # (Manual) PT INR APTT POC ABG pH ABG pH POC ABG pCO2 POC ABG pO2 ABG pO2 ABG HCO3 ABG O2 Saturation ABG Base Excess ABG Hemoglobin Oxyhemoglobin Sodium Chloride Carbon Dioxide BUN Creatinine Glucose POC Glucose 170 H 165 H 153 H Lactic Acid Calcium Magnesium AST ALT Total Creatine Kinase C-Reactive Protein Total Protein Albumin Urine WBC (Auto) Vancomycin Trough Salicylates Acetaminophen 10/19/18 10/19/18 10/19/18 05:39 08:41 08:41 WBC 13.4 H RBC 3.27 L Hgb 9.5 L Hct 29.7 L RDW Lymph % (Auto) [place] % (Auto) [place] # Seg Neutrophils % Seg Neuts % (Manual) Lymphocytes % (Manual) Seg Neutrophils # Seg Neutrophils # Man Lymphocytes # (Manual) Monocytes # (Manual) PT INR APTT POC ABG pH ABG pH POC ABG pCO2 POC ABG pO2 ABG pO2 ABG HCO3 ABG O2 Saturation ABG Base Excess ABG Hemoglobin Oxyhemoglobin Sodium Chloride Carbon Dioxide 34 H BUN 18 H Creatinine 0.3 L Glucose 137 H POC Glucose 162 H Lactic Acid Calcium 10.5 H Magnesium AST ALT Total Creatine Kinase C-Reactive Protein Total Protein Albumin Urine WBC (Auto) Vancomycin Trough Salicylates Acetaminophen Chest x-ray: image reviewed (No new infiltrates, support structures in place) Allied health notes reviewed: nursing
--- NOTE | 2018-10-19 11:57 | Progress Note ---
Assessment and Plan Patient is a 68 year old woman with a history of hypertension, atrial fibrillation on anticoagulation, GERD. The patient was found down, and was found to be in cardiac arrest. The approximate time duration of cardiac arrest was approximate 45-50 minutes, prior to return of spontaneous circulation. 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 Plan: 1. Anoxic brain injury: - Currently, the patient displays intact brainstem reflexes, including corneal, pupillary and cough reflexes are intact. Patient withdraws to pain stimulation in all extremities. MRI revealed evidence of anoxic brain injury with cortical riveting. EEG done previously showed generalized slowing. - CT head done 10/17/18 showed compression of third ventricle, increased cerebral edema, and loss of poon-white distinction. - Will repeat CT head to assess for any changes in cerebral edema. - Family meeting took place on 10/17/10, and we discussed at length regarding patient's prognosis, including acute change of left lung atelectasis. Patient's family stated that they would like to make the patient currently DO NOT RESUSCITATE. They also stated that they would like to discuss the possibility further care with hospice team. They stated that they have not yet decided whether or not they would like for the mother to transition to tracheostomy and PEG tube placement. - In discussion with family, I discussed the new findings on CT scan that was done, and how cerebral edema may increase and potentially cause herniation. In that event, the patient would need to have neurosurgical intervention as a lifesaving measure. It was discussed with the patient's son that the patient need to be transferred for this. The patient's son stated that he is not yet c ertain if he or the family would consent to this, and that they will discuss it amongst one another prior to giving us their decision, if this was needed in the future. I discussed at length with the patient's family at bedside regarding the patient's prognosis. It was discussed that the patient is not currently brain- given the patient's current clinical exam as well as findings on EEG. It was further discussed that the patient's prognosis is indeterminate at this time, given the evidence of anoxic brain injury on MRI. It was also mentioned that, with time, the patient may have some element of neurologic recovery, however the extent of which is difficult to predict. I further discussed transitioning to a tracheostomy and a PEG tube for continued care. All questions were answered and concerns were clarified and addressed with family. - Will continue to follow the patient. -Thank you for allowing me to take part in the care of this patient. Joon Sr MD Neurology Subjective Date of service: 10/19/18 Principal diagnosis: Cardiac arrest with ROSC; Ac hypoxemic resp failure; Ac. encephalopathy Interval history: No acute events overnight. Objective - Exam Narrative Exam: Patient is intubated, comatose. Pupils equal, round, reactive to light, corneal reflexes present, cough reflex intact. Withdraws to pain stimulation in all extremities. Reflexes 3+ throughout. No spontaneous movement noted. - Vital Sign Vital Signs - 12hr 10/19/18 10/19/18 10/19/18 00:00 00:09 01:00 Temperature 98.4 F Pulse Rate 81 85 64 Pulse Rate [ 85 From Monitor] Respiratory 13 12 Rate Blood Pressure 132/54 132/54 117/49 O2 Sat by Pulse 100 100 Oximetry 10/19/18 10/19/18 10/19/18 02:00 03:00 04:00 Temperature 98.9 F Pulse Rate 77 75 80 Pulse Rate [ 77 77 From Monitor] Respiratory 14 13 13 Rate Blood Pressure 130/55 121/53 133/57 O2 Sat by Pulse 97 99 100 Oximetry 10/19/18 10/19/18 10/19/18 05:00 06:00 07:00 Temperature Pulse Rate 85 86 90 Pulse Rate [ From Monitor] Respiratory 13 14 13 Rate Blood Pressure 142/61 139/61 142/59 O2 Sat by Pulse 98 99 98 Oximetry 10/19/18 10/19/18 10/19/18 07:53 08:00 08:20 Temperature 98.6 F Pulse Rate 87 91 H 91 H Pulse Rate [ 91 H From Monitor] Respiratory 11 L Rate Blood Pressure 142/59 135/57 135/57 O2 Sat by Pulse 100 100 Oximetry 10/19/18 10/19/18 10/19/18 09:00 09:37 09:38 Temperature Pulse Rate 84 80 80 Pulse Rate [ From Monitor] Respiratory 12 Rate Blood Pressure 139/59 139/59 139/59 O2 Sat by Pulse 100 Oximetry 10/19/18 10/19/18 10/19/18 10:00 11:00 11:46 Temperature Pulse Rate 66 62 73 Pulse Rate [ From Monitor] Respiratory 12 12 Rate Blood Pressure 119/52 112/48 112/48 O2 Sat by Pulse 100 99 100 Oximetry - General Apperance Constitutional: comfortable - EENT EENT: ATNC, PERRL, mucous membranes moist - Respiratory Respiratory: decreased breath sounds - Cardiovascular Cardiovascular: regular rate, normal S1, normal S2 Extremities: no peripheral edema bilat, no clubbing, cyanosis - Gastrointestinal Gastrointestinal: normoactive bowel sounds, soft, non-tender - Integumentary Integumentary: normal - Laboratory Findings CBC and BMP: 10/19/18 08:41 10/19/18 08:41 Abnormal Lab Findings: Abnormal Labs 10/09/18 10/09/18 10/09/18 10:14 10:50 10:50 WBC RBC Hgb Hct RDW Lymph % (Auto) [place] % (Auto) [place] # Seg Neutrophils % Seg Neuts % (Manual) Lymphocytes % (Manual) Seg Neutrophils # Seg Neutrophils # Man Lymphocytes # (Manual) Monocytes # (Manual) PT 16.6 H INR 1.38 H APTT 39.4 H POC ABG pH ABG pH POC ABG pCO2 POC ABG pO2 ABG pO2 ABG HCO3 ABG O2 Saturation ABG Base Excess ABG Hemoglobin Oxyhemoglobin Sodium Chloride 90.3 L Carbon Dioxide BUN 21 H Creatinine Glucose 315 H POC Glucose 344 H Lactic Acid Calcium Magnesium AST 51 H ALT 67 H Total Creatine Kinase C-Reactive Protein Total Protein 5.3 L Albumin 3.0 L Urine WBC (Auto) Vancomycin Trough Salicylates Acetaminophen 10/09/18 10/09/18 10/09/18 10:50 10:50 10:50 WBC RBC Hgb Hct RDW Lymph % (Auto) [place] % (Auto) [place] # Seg Neutrophils % Seg Neuts % (Manual) Lymphocytes % (Manual) Seg Neutrophils # Seg Neutrophils # Man Lymphocytes # (Manual) Monocytes # (Manual) PT INR APTT POC ABG pH ABG pH POC ABG pCO2 POC ABG pO2 ABG pO2 ABG HCO3 ABG O2 Saturation ABG Base Excess ABG Hemoglobin Oxyhemoglobin Sodium Chloride Carbon Dioxide BUN Creatinine Glucose POC Glucose Lactic Acid Calcium Magnesium 3.70 H AST ALT Total Creatine Kinase 171 H C-Reactive Protein Total Protein Albumin Urine WBC (Auto) Vancomycin Trough Salicylates < 0.3 L Acetaminophen < 5.0 L 10/09/18 10/09/18 10/09/18 10:50 10:55 11:38 WBC 31.3 H RBC Hgb Hct RDW 13.0 L Lymph % (Auto) [place] % (Auto) [place] # Seg Neutrophils % Seg Neuts % (Manual) 91.5 H Lymphocytes % (Manual) 4.5 L Seg Neutrophils # Seg Neutrophils # Man 28.6 H Lymphocytes # (Manual) Monocytes # (Manual) 1.1 H PT INR APTT POC ABG pH 7.243 L ABG pH POC ABG pCO2 68.0 H POC ABG pO2 389 H ABG pO2 ABG HCO3 ABG O2 Saturation ABG Base Excess ABG Hemoglobin Oxyhemoglobin Sodium Chloride Carbon Dioxide BUN Creatinine Glucose POC Glucose Lactic Acid 9.30 H* Calcium Magnesium AST ALT Total Creatine Kinase C-Reactive Protein Total Protein Albumin Urine WBC (Auto) Vancomycin Trough Salicylates Acetaminophen 10/09/18 10/09/18 10/09/18 12:12 15:28 16:27 WBC RBC Hgb Hct RDW Lymph % (Auto) [place] % (Auto) [place] # Seg Neutrophils % Seg Neuts % (Manual) Lymphocytes % (Manual) Seg Neutrophils # Seg Neutrophils # Man Lymphocytes # (Manual) Monocytes # (Manual) PT INR APTT POC ABG pH 7.598 H ABG pH POC ABG pCO2 POC ABG pO2 61 L ABG pO2 ABG HCO3 ABG O2 Saturation ABG Base Excess ABG Hemoglobin Oxyhemoglobin Sodium Chloride Carbon Dioxide BUN Creatinine Glucose POC Glucose 173 H Lactic Acid Calcium Magnesium AST ALT Total Creatine Kinase C-Reactive Protein Total Protein Albumin Urine WBC (Auto) 8.0 H Vancomycin Trough Salicylates Acetaminophen 10/09/18 10/09/18 10/09/18 16:44 16:44 18:38 WBC RBC Hgb Hct RDW Lymph % (Auto) [place] % (Auto) [place] # Seg Neutrophils % Seg Neuts % (Manual) Lymphocytes % (Manual) Seg Neutrophils # Seg Neutrophils # Man Lymphocytes # (Manual) Monocytes # (Manual) PT INR APTT POC ABG pH ABG pH POC ABG pCO2 POC ABG pO2 ABG pO2 ABG HCO3 ABG O2 Saturation ABG Base Excess ABG Hemoglobin Oxyhemoglobin Sodium Chloride Carbon Dioxide BUN Creatinine Glucose POC Glucose 177 H Lactic Acid 3.80 H* 3.70 H* Calcium Magnesium AST ALT Total Creatine Kinase C-Reactive Protein Total Protein Albumin Urine WBC (Auto) Vancomycin Trough Salicylates Acetaminophen 10/10/18 10/10/18 10/10/18 00:33 04:24 05:32 WBC RBC Hgb Hct RDW Lymph % (Auto) [place] % (Auto) [place] # Seg Neutrophils % Seg Neuts % (Manual) Lymphocytes % (Manual) Seg Neutrophils # Seg Neutrophils # Man Lymphocytes # (Manual) Monocytes # (Manual) PT INR APTT POC ABG pH 7.602 H ABG pH POC ABG pCO2 POC ABG pO2 170 H ABG pO2 ABG HCO3 ABG O2 Saturation ABG Base Excess ABG Hemoglobin Oxyhemoglobin Sodium Chloride Carbon Dioxide BUN Creatinine Glucose POC Glucose 177 H 190 H Lactic Acid Calcium Magnesium AST ALT Total Creatine Kinase C-Reactive Protein Total Protein Albumin Urine WBC (Auto) Vancomycin Trough Salicylates Acetaminophen 10/10/18 10/10/18 10/10/18 07:54 07:54 12:18 WBC 38.6 H RBC Hgb Hct RDW Lymph % (Auto) [place] % (Auto) [place] # Seg Neutrophils % Seg Neuts % (Manual) Lymphocytes % (Manual) Seg Neutrophils # Seg Neutrophils # Man Lymphocytes # (Manual) Monocytes # (Manual) PT INR APTT POC ABG pH ABG pH POC ABG pCO2 POC ABG pO2 ABG pO2 ABG HCO3 ABG O2 Saturation ABG Base Excess ABG Hemoglobin Oxyhemoglobin Sodium Chloride Carbon Dioxide BUN 31 H Creatinine Glucose 124 H POC Glucose 151 H Lactic Acid Calcium Magnesium AST ALT Total Creatine Kinase C-Reactive Protein Total Protein Albumin Urine WBC (Auto) Vancomycin Trough Salicylates Acetaminophen 10/10/18 10/10/18 10/11/18 18:17 23:09 03:40 WBC RBC Hgb Hct RDW Lymph % (Auto) [place] % (Auto) [place] # Seg Neutrophils % Seg Neuts % (Manual) Lymphocytes % (Manual) Seg Neutrophils # Seg Neutrophils # Man Lymphocytes # (Manual) Monocytes # (Manual) PT INR APTT POC ABG pH ABG pH POC ABG pCO2 POC ABG pO2 ABG pO2 91.1 H ABG HCO3 28.8 H ABG O2 Saturation ABG Base Excess ABG Hemoglobin 7.6 L Oxyhemoglobin Sodium Chloride Carbon Dioxide BUN Creatinine Glucose POC Glucose 132 H 124 H Lactic Acid Calcium Magnesium AST ALT Total Creatine Kinase C-Reactive Protein Total Protein Albumin Urine WBC (Auto) Vancomycin Trough Salicylates Acetaminophen 10/11/18 10/11/18 10/11/18 04:45 04:45 06:50 WBC 25.8 H RBC 3.41 L Hgb Hct RDW Lymph % (Auto) [place] % (Auto) [place] # Seg Neutrophils % Seg Neuts % (Manual) 83.0 H Lymphocytes % (Manual) Seg Neutrophils # Seg Neutrophils # Man 21.4 H Lymphocytes # (Manual) Monocytes # (Manual) PT INR APTT POC ABG pH ABG pH POC ABG pCO2 POC ABG pO2 ABG pO2 ABG HCO3 ABG O2 Saturation ABG Base Excess ABG Hemoglobin Oxyhemoglobin Sodium Chloride Carbon Dioxide BUN 26 H Creatinine 0.6 L Glucose 134 H POC Glucose 134 H Lactic Acid Calcium Magnesium AST ALT Total Creatine Kinase C-Reactive Protein Total Protein Albumin Urine WBC (Auto) Vancomycin Trough Salicylates Acetaminophen 10/11/18 10/11/18 10/12/18 13:10 18:08 00:25 WBC RBC Hgb Hct RDW Lymph % (Auto) [place] % (Auto) [place] # Seg Neutrophils % Seg Neuts % (Manual) Lymphocytes % (Manual) Seg Neutrophils # Seg Neutrophils # Man Lymphocytes # (Manual) Monocytes # (Manual) PT INR APTT POC ABG pH ABG pH POC ABG pCO2 POC ABG pO2 ABG pO2 ABG HCO3 ABG O2 Saturation ABG Base Excess ABG Hemoglobin Oxyhemoglobin Sodium Chloride Carbon Dioxide BUN Creatinine Glucose POC Glucose 160 H 166 H 136 H Lactic Acid Calcium Magnesium AST ALT Total Creatine Kinase C-Reactive Protein Total Protein Albumin Urine WBC (Auto) Vancomycin Trough Salicylates Acetaminophen 10/12/18 10/12/18 10/12/18 03:56 04:17 04:17 WBC 19.2 H RBC 3.04 L Hgb 8.9 L Hct 27.2 L RDW Lymph % (Auto) 8.5 L [place] % (Auto) [place] # 1.4 H Seg Neutrophils % 84.2 H Seg Neuts % (Manual) Lymphocytes % (Manual) Seg Neutrophils # 16.2 H Seg Neutrophils # Man Lymphocytes # (Manual) Monocytes # (Manual) PT INR APTT POC ABG pH ABG pH POC ABG pCO2 POC ABG pO2 ABG pO2 77.9 L ABG HCO3 29.4 H ABG O2 Saturation ABG Base Excess 4.4 H ABG Hemoglobin 10.2 L Oxyhemoglobin 94.7 L Sodium Chloride Carbon Dioxide BUN Creatinine 0.5 L Glucose 139 H POC Glucose Lactic Acid Calcium Magnesium AST ALT Total Creatine Kinase C-Reactive Protein Total Protein Albumin Urine WBC (Auto) Vancomycin Trough Salicylates Acetaminophen 10/12/18 10/12/18 10/12/18 05:51 11:46 13:03 WBC RBC Hgb Hct RDW Lymph % (Auto) [place] % (Auto) [place] # Seg Neutrophils % Seg Neuts % (Manual) Lymphocytes % (Manual) Seg Neutrophils # Seg Neutrophils # Man Lymphocytes # (Manual) Monocytes # (Manual) PT INR APTT POC ABG pH ABG pH POC ABG pCO2 POC ABG pO2 ABG pO2 ABG HCO3 ABG O2 Saturation ABG Base Excess ABG Hemoglobin Oxyhemoglobin Sodium Chloride Carbon Dioxide BUN Creatinine Glucose POC Glucose 163 H 162 H Lactic Acid Calcium Magnesium AST ALT Total Creatine Kinase C-Reactive Protein 2.70 H Total Protein Albumin Urine WBC (Auto) Vancomycin Trough Salicylates Acetaminophen 10/12/18 10/12/18 10/12/18 17:44 22:33 23:54 WBC RBC Hgb Hct RDW Lymph % (Auto) [place] % (Auto) [place] # Seg Neutrophils % Seg Neuts % (Manual) Lymphocytes % (Manual) Seg Neutrophils # Seg Neutrophils # Man Lymphocytes # (Manual) Monocytes # (Manual) PT INR APTT POC ABG pH ABG pH POC ABG pCO2 POC ABG pO2 ABG pO2 ABG HCO3 ABG O2 Saturation ABG Base Excess ABG Hemoglobin Oxyhemoglobin Sodium Chloride Carbon Dioxide BUN Creatinine Glucose POC Glucose 143 H 180 H Lactic Acid Calcium Magnesium AST ALT Total Creatine Kinase C-Reactive Protein Total Protein Albumin Urine WBC (Auto) Vancomycin Trough 4.8 L Salicylates Acetaminophen 10/13/18 10/13/18 10/13/18 02:30 02:30 03:10 WBC 19.8 H RBC 3.12 L Hgb 9.2 L Hct 28.2 L RDW Lymph % (Auto) 8.1 L [place] % (Auto) 8.0 H [place] # 1.6 H Seg Neutrophils % 83.2 H Seg Neuts % (Manual) Lymphocytes % (Manual) Seg Neutrophils # 16.5 H Seg Neutrophils # Man Lymphocytes # (Manual) Monocytes # (Manual) PT INR APTT POC ABG pH ABG pH POC ABG pCO2 POC ABG pO2 ABG pO2 ABG HCO3 32.9 H ABG O2 Saturation ABG Base Excess 7.2 H ABG Hemoglobin 10.8 L Oxyhemoglobin Sodium Chloride Carbon Dioxide BUN Creatinine 0.3 L Glucose 139 H POC Glucose Lactic Acid Calcium Magnesium AST ALT Total Creatine Kinase C-Reactive Protein Total Protein Albumin Urine WBC (Auto) Vancomycin Trough Salicylates Acetaminophen 10/13/18 10/13/18 10/13/18 05:17 11:52 17:18 WBC RBC Hgb Hct RDW Lymph % (Auto) [place] % (Auto) [place] # Seg Neutrophils % Seg Neuts % (Manual) Lymphocytes % (Manual) Seg Neutrophils # Seg Neutrophils # Man Lymphocytes # (Manual) Monocytes # (Manual) PT INR APTT POC ABG pH ABG pH POC ABG pCO2 56.7 H POC ABG pO2 63 L ABG pO2 ABG HCO3 ABG O2 Saturation ABG Base Excess ABG Hemoglobin Oxyhemoglobin Sodium Chloride Carbon Dioxide BUN Creatinine Glucose POC Glucose 192 H 200 H Lactic Acid Calcium Magnesium AST ALT Total Creatine Kinase C-Reactive Protein Total Protein Albumin Urine WBC (Auto) Vancomycin Trough Salicylates Acetaminophen 10/13/18 10/14/18 10/14/18 17:53 00:00 03:55 WBC RBC Hgb Hct RDW Lymph % (Auto) [place] % (Auto) [place] # Seg Neutrophils % Seg Neuts % (Manual) Lymphocytes % (Manual) Seg Neutrophils # Seg Neutrophils # Man Lymphocytes # (Manual) Monocytes # (Manual) PT INR APTT POC ABG pH ABG pH POC ABG pCO2 POC ABG pO2 ABG pO2 ABG HCO3 34.1 H ABG O2 Saturation ABG Base Excess 8.4 H ABG Hemoglobin 10.6 L Oxyhemoglobin 94.8 L Sodium Chloride Carbon Dioxide BUN Creatinine Glucose POC Glucose 215 H 236 H Lactic Acid Calcium Magnesium AST ALT Total Creatine Kinase C-Reactive Protein Total Protein Albumin Urine WBC (Auto) Vancomycin Trough Salicylates Acetaminophen 10/14/18 10/14/18 10/14/18 05:00 08:05 08:05 WBC 16.8 H RBC 3.27 L Hgb 9.8 L Hct 29.7 L RDW 13.1 L Lymph % (Auto) 7.5 L [place] % (Auto) 8.6 H [place] # 1.4 H Seg Neutrophils % 82.4 H Seg Neuts % (Manual) Lymphocytes % (Manual) Seg Neutrophils # 13.8 H Seg Neutrophils # Man Lymphocytes # (Manual) Monocytes # (Manual) PT INR APTT POC ABG pH ABG pH POC ABG pCO2 POC ABG pO2 ABG pO2 ABG HCO3 ABG O2 Saturation ABG Base Excess ABG Hemoglobin Oxyhemoglobin Sodium Chloride Carbon Dioxide 33 H BUN Creatinine 0.3 L Glucose 140 H POC Glucose 170 H Lactic Acid Calcium Magnesium AST ALT Total Creatine Kinase C-Reactive Protein Total Protein Albumin Urine WBC (Auto) Vancomycin Trough Salicylates Acetaminophen 10/14/18 10/14/18 10/14/18 12:04 14:06 18:04 WBC RBC Hgb Hct RDW Lymph % (Auto) [place] % (Auto) [place] # Seg Neutrophils % Seg Neuts % (Manual) Lymphocytes % (Manual) Seg Neutrophils # Seg Neutrophils # Man Lymphocytes # (Manual) Monocytes # (Manual) PT INR APTT POC ABG pH 7.330 L ABG pH POC ABG pCO2 67.6 H POC ABG pO2 75 L ABG pO2 ABG HCO3 ABG O2 Saturation ABG Base Excess ABG Hemoglobin Oxyhemoglobin Sodium Chloride Carbon Dioxide BUN Creatinine Glucose POC Glucose 202 H 189 H Lactic Acid Calcium Magnesium AST ALT Total Creatine Kinase C-Reactive Protein Total Protein Albumin Urine WBC (Auto) Vancomycin Trough Salicylates Acetaminophen 10/14/18 10/15/18 10/15/18 23:16 04:58 05:03 WBC 18.0 H RBC 3.36 L Hgb Hct RDW Lymph % (Auto) 7.5 L [place] % (Auto) [place] # 1.3 H Seg Neutrophils % 83.2 H Seg Neuts % (Manual) Lymphocytes % (Manual) Seg Neutrophils # 15.0 H Seg Neutrophils # Man Lymphocytes # (Manual) Monocytes # (Manual) PT INR APTT POC ABG pH ABG pH POC ABG pCO2 54.9 H POC ABG pO2 72 L ABG pO2 ABG HCO3 ABG O2 Saturation ABG Base Excess ABG Hemoglobin Oxyhemoglobin Sodium Chloride Carbon Dioxide BUN Creatinine Glucose POC Glucose 187 H Lactic Acid Calcium Magnesium AST ALT Total Creatine Kinase C-Reactive Protein Total Protein Albumin Urine WBC (Auto) Vancomycin Trough Salicylates Acetaminophen 10/15/18 10/15/18 10/15/18 05:03 05:54 11:53 WBC RBC Hgb Hct RDW Lymph % (Auto) [place] % (Auto) [place] # Seg Neutrophils % Seg Neuts % (Manual) Lymphocytes % (Manual) Seg Neutrophils # Seg Neutrophils # Man Lymphocytes # (Manual) Monocytes # (Manual) PT INR APTT POC ABG pH ABG pH POC ABG pCO2 POC ABG pO2 ABG pO2 ABG HCO3 ABG O2 Saturation ABG Base Excess ABG Hemoglobin Oxyhemoglobin Sodium Chloride Carbon Dioxide 33 H BUN 19 H Creatinine 0.3 L Glucose 161 H POC Glucose 191 H 188 H Lactic Acid Calcium Magnesium AST ALT Total Creatine Kinase C-Reactive Protein Total Protein Albumin Urine WBC (Auto) Vancomycin Trough Salicylates Acetaminophen 10/15/18 10/15/18 10/16/18 17:30 23:15 05:05 WBC RBC Hgb Hct RDW Lymph % (Auto) [place] % (Auto) [place] # Seg Neutrophils % Seg Neuts % (Manual) Lymphocytes % (Manual) Seg Neutrophils # Seg Neutrophils # Man Lymphocytes # (Manual) Monocytes # (Manual) PT INR APTT POC ABG pH ABG pH 7.452 H POC ABG pCO2 POC ABG pO2 ABG pO2 66.6 L ABG HCO3 33.3 H ABG O2 Saturation 94.0 L ABG Base Excess 8.4 H ABG Hemoglobin 8.7 L Oxyhemoglobin 92.1 L Sodium Chloride Carbon Dioxide BUN Creatinine Glucose POC Glucose 178 H 177 H Lactic Acid Calcium Magnesium AST ALT Total Creatine Kinase C-Reactive Protein Total Protein Albumin Urine WBC (Auto) Vancomycin Trough Salicylates Acetaminophen 10/16/18 10/16/18 10/16/18 05:12 05:12 05:49 WBC 21.9 H RBC 3.62 L Hgb Hct RDW Lymph % (Auto) [place] % (Auto) [place] # Seg Neutrophils % Seg Neuts % (Manual) 93.0 H Lymphocytes % (Manual) 1.0 L Seg Neutrophils # Seg Neutrophils # Man 20.4 H Lymphocytes # (Manual) 0.2 L Monocytes # (Manual) 0.9 H PT INR APTT POC ABG pH ABG pH POC ABG pCO2 POC ABG pO2 ABG pO2 ABG HCO3 ABG O2 Saturation ABG Base Excess ABG Hemoglobin Oxyhemoglobin Sodium 136 L Chloride 96.3 L Carbon Dioxide 34 H BUN 20 H Creatinine 0.3 L Glucose 183 H POC Glucose 187 H Lactic Acid Calcium Magnesium AST ALT Total Creatine Kinase C-Reactive Protein Total Protein Albumin Urine WBC (Auto) Vancomycin Trough Salicylates Acetaminophen 10/16/18 10/16/18 10/16/18 11:25 17:41 23:08 WBC RBC Hgb Hct RDW Lymph % (Auto) [place] % (Auto) [place] # Seg Neutrophils % Seg Neuts % (Manual) Lymphocytes % (Manual) Seg Neutrophils # Seg Neutrophils # Man Lymphocytes # (Manual) Monocytes # (Manual) PT INR APTT POC ABG pH ABG pH POC ABG pCO2 POC ABG pO2 ABG pO2 ABG HCO3 ABG O2 Saturation ABG Base Excess ABG Hemoglobin Oxyhemoglobin Sodium Chloride Carbon Dioxide BUN Creatinine Glucose POC Glucose 200 H 184 H 166 H Lactic Acid Calcium Magnesium AST ALT Total Creatine Kinase C-Reactive Protein Total Protein Albumin Urine WBC (Auto) Vancomycin Trough Salicylates Acetaminophen 10/17/18 10/17/18 10/17/18 04:32 04:32 05:12 WBC 19.9 H RBC 3.53 L Hgb Hct RDW Lymph % (Auto) 6.8 L [place] % (Auto) 7.8 H [place] # 1.5 H Seg Neutrophils % 84.2 H Seg Neuts % (Manual) Lymphocytes % (Manual) Seg Neutrophils # 16.7 H Seg Neutrophils # Man Lymphocytes # (Manual) Monocytes # (Manual) PT INR APTT POC ABG pH ABG pH POC ABG pCO2 POC ABG pO2 ABG pO2 ABG HCO3 ABG O2 Saturation ABG Base Excess ABG Hemoglobin Oxyhemoglobin Sodium Chloride Carbon Dioxide 32 H BUN 20 H Creatinine 0.3 L Glucose 155 H POC Glucose 164 H Lactic Acid Calcium Magnesium AST ALT Total Creatine Kinase C-Reactive Protein Total Protein Albumin Urine WBC (Auto) Vancomycin Trough Salicylates Acetaminophen 10/17/18 10/17/18 10/17/18 12:24 13:21 18:03 WBC RBC Hgb Hct RDW Lymph % (Auto) [place] % (Auto) [place] # Seg Neutrophils % Seg Neuts % (Manual) Lymphocytes % (Manual) Seg Neutrophils # Seg Neutrophils # Man Lymphocytes # (Manual) Monocytes # (Manual) PT INR APTT POC ABG pH 7.337 L ABG pH POC ABG pCO2 68.3 H POC ABG pO2 79 L ABG pO2 ABG HCO3 ABG O2 Saturation ABG Base Excess ABG Hemoglobin Oxyhemoglobin Sodium Chloride Carbon Dioxide BUN Creatinine Glucose POC Glucose 169 H 139 H Lactic Acid Calcium Magnesium AST ALT Total Creatine Kinase C-Reactive Protein Total Protein Albumin Urine WBC (Auto) Vancomycin Trough Salicylates Acetaminophen 10/17/18 10/18/18 10/18/18 23:13 03:29 05:33 WBC RBC Hgb Hct RDW Lymph % (Auto) [place] % (Auto) [place] # Seg Neutrophils % Seg Neuts % (Manual) Lymphocytes % (Manual) Seg Neutrophils # Seg Neutrophils # Man Lymphocytes # (Manual) Monocytes # (Manual) PT INR APTT POC ABG pH 7.472 H ABG pH POC ABG pCO2 POC ABG pO2 ABG pO2 ABG HCO3 ABG O2 Saturation ABG Base Excess ABG Hemoglobin Oxyhemoglobin Sodium Chloride Carbon Dioxide BUN Creatinine Glucose POC Glucose 170 H 151 H Lactic Acid Calcium Magnesium AST ALT Total Creatine Kinase C-Reactive Protein Total Protein Albumin Urine WBC (Auto) Vancomycin Trough Salicylates Acetaminophen 10/18/18 10/18/18 10/18/18 11:37 18:06 23:23 WBC RBC Hgb Hct RDW Lymph % (Auto) [place] % (Auto) [place] # Seg Neutrophils % Seg Neuts % (Manual) Lymphocytes % (Manual) Seg Neutrophils # Seg Neutrophils # Man Lymphocytes # (Manual) Monocytes # (Manual) PT INR APTT POC ABG pH ABG pH POC ABG pCO2 POC ABG pO2 ABG pO2 ABG HCO3 ABG O2 Saturation ABG Base Excess ABG Hemoglobin Oxyhemoglobin Sodium Chloride Carbon Dioxide BUN Creatinine Glucose POC Glucose 170 H 165 H 153 H Lactic Acid Calcium Magnesium AST ALT Total Creatine Kinase C-Reactive Protein Total Protein Albumin Urine WBC (Auto) Vancomycin Trough Salicylates Acetaminophen 10/19/18 10/19/18 10/19/18 05:39 08:41 08:41 WBC 13.4 H RBC 3.27 L Hgb 9.5 L Hct 29.7 L RDW Lymph % (Auto) [place] % (Auto) [place] # Seg Neutrophils % Seg Neuts % (Manual) Lymphocytes % (Manual) Seg Neutrophils # Seg Neutrophils # Man Lymphocytes # (Manual) Monocytes # (Manual) PT INR APTT POC ABG pH ABG pH POC ABG pCO2 POC ABG pO2 ABG pO2 ABG HCO3 ABG O2 Saturation ABG Base Excess ABG Hemoglobin Oxyhemoglobin Sodium Chloride Carbon Dioxide 34 H BUN 18 H Creatinine 0.3 L Glucose 137 H POC Glucose 162 H Lactic Acid Calcium 10.5 H Magnesium AST ALT Total Creatine Kinase C-Reactive Protein Total Protein Albumin Urine WBC (Auto) Vancomycin Trough Salicylates Acetaminophen
--- NOTE | 2018-10-19 15:09 | Progress Note ---
Assessment and Plan Assessment and plan: Sepsis. Patient off pressors. Continue antibiotics per infectious disease. Left lower lobe pneumonia. Continue antibiotics per ID recommendation Left lung collapse; Dr. Jacobo did broch, CXR after bronchoscopy showed improvement Anoxic brain injury. EEG per Neurology shows no epileptiform abnormalities, focal or lateralizing features, or significant interhemispheric findings.. MRI findings consistent with anoxic brain injury. Keppra started per neurology twice a day for seizure prophylaxis. Cont. Provigil Dr. Sr consulted and had a long discussion about the prognosis. CT head sh owed cytotoxic edema, severe anoxic brain injury. Cardiopulmonary arrest. Echo revealed EF 60-65%, mild LVH, impaired relaxation, mild TR, mild pulm HTN RVSP 48mmHg, small pericardial effusion, left pleural effusion. Continue supportive care. S/P ACLS protocol initiation with return of cardiac rhythm Acute hypoxemic respiratory failure. Continue mechanical ventilation per pulmonary. Cont. SBT. Patient will need consideration for trach and PEG discussions on Tuesday. Paroxysmal atrial fibrillation. Per cardiology recommendations. Hypertension. Continue antihypertensive medications as needed. Elevated LFTs. Etiology likely secondary to sepsis/shock/ischemic hepatitis. POLLY. Per pulmonary. Overall poor prognosis with minimal chance for neurological recovery Discharge status; DNR We had a long discussion me, Dr. Jacobo, Dr. Sr, case management, inpatient nursing aide and the patient's nurse with all of the family members and they want her to be DNR and want to discuss with each other to discuss with the next step. But they declined PEG and trach. The high probability of a clinically significant, sudden or life threatening deterioration of the [respiratory, cardiovascular, neurology] system(s) required my full and direct attention, intervention and personal management. The aggregate critical care time was [34] minutes. This time is in addition to time spent performing reported procedures but includes the following: [x] Data Review and interpretation [x] Patient assessment and monitoring of vital signs [x] Documentation [x] Medication orders and management History Interval history: Patient was seen and evaluated this morning, and is intubated and on mechanical ventilation Hospitalist Physical - Physical exam Narrative exam: Patient is intubated on the mechanical ventilation The patient appeared well nourished and normally developed. Vital signs as documented. Head exam is unremarkable. No scleral icterus . Neck is without jugular venous distension, thyromegaly, or carotid bruits. Lungs are clear to auscultation. Cardiac exam reveals regular rate and Rhythm. First and second heart sounds normal. No murmurs, rubs or gallops. Abdominal exam reveals normal bowel sounds, no masses, no organomegaly and no aortic enlargement. Extremities are nonedematous and both femoral and pedal pulses are normal. 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 Has some brainstem reflexes. - Constitutional Vitals: Temp Pulse Resp BP Pulse Ox 98.4 F 73 12 121/53 100 10/19/18 12:00 10/19/18 13:00 10/19/18 13:00 10/19/18 13:00 10/19/18 13:00 General appearance: Present: no acute distress, other (orally intubated) Results - Labs CBC & Chem 7: 10/19/18 08:41 10/19/18 08:41 Labs: Laboratory Last Values WBC 13.4 K/mm3 (4.5-11.0) H 10/19/18 08:41 RBC 3.27 M/mm3 (3.65-5.03) L 10/19/18 08:41 Hgb 9.5 gm/dl (10.1-14.3) L 10/19/18 08:41 Hct 29.7 % (30.3-42.9) L 10/19/18 08:41 MCV 91 fl (79-97) 10/19/18 08:41 MCH 29 pg (28-32) 10/19/18 08:41 MCHC 32 % (30-34) 10/19/18 08:41 RDW 14.2 % (13.2-15.2) 10/19/18 08:41 Plt Count 306 K/mm3 (140-440) 10/19/18 08:41 Lymph % (Auto) 6.8 % (13.4-35.0) L 10/17/18 04:32 [place] % (Auto) 7.8 % (0.0-7.3) H 10/17/18 04:32 Eos % (Auto) 1.1 % (0.0-4.3) 10/17/18 04:32 Baso % (Auto) 0.1 % (0.0-1.8) 10/17/18 04:32 Lymph # 1.4 K/mm3 (1.2-5.4) 10/17/18 04:32 [place] # 1.5 K/mm3 (0.0-0.8) H 10/17/18 04:32 Eos # 0.2 K/mm3 (0.0-0.4) 10/17/18 04:32 Baso # 0.0 K/mm3 (0.0-0.1) 10/17/18 04:32 Add Manual Diff Complete 10/16/18 05:12 Total Counted 100 10/16/18 05:12 Seg Neutrophils % 84.2 % (40.0-70.0) H 10/17/18 04:32 Seg Neuts % (Manual) 93.0 % (40.0-70.0) H 10/16/18 05:12 1.0 % 10/16/18 05:12 1.0 % (13.4-35.0) L 10/16/18 05:12 Reactive Lymphs % (Man) 0 % 10/16/18 05:12 4.0 % (0.0-7.3) 10/16/18 05:12 0 % (0.0-4.3) 10/16/18 05:12 0 % (0.0-1.8) 10/16/18 05:12 1.0 % 10/16/18 05:12 0 % 10/16/18 05:12 0 % 10/16/18 05:12 0 % 10/16/18 05:12 Nucleated RBC % Not Reportable 10/16/18 05:12 Seg Neutrophils # 16.7 K/mm3 (1.8-7.7) H 10/17/18 04:32 Seg Neutrophils # Man 20.4 K/mm3 (1.8-7.7) H 10/16/18 05:12 Band Neutrophils # 0.2 K/mm3 10/16/18 05:12 0.2 K/mm3 (1.2-5.4) L 10/16/18 05:12 Abs React Lymphs (Man) 0.0 K/mm3 10/16/18 05:12 0.9 K/mm3 (0.0-0.8) H 10/16/18 05:12 0.0 K/mm3 (0.0-0.4) 10/16/18 05:12 0.0 K/mm3 (0.0-0.1) 10/16/18 05:12 0.2 K/mm3 10/16/18 05:12 0.0 K/mm3 10/16/18 05:12 0.0 K/mm3 10/16/18 05:12 Blast Cells # 0.0 K/mm3 10/16/18 05:12 WBC Morphology Not Reportable 10/16/18 05:12 Hypersegmented Neuts Not Reportable 10/16/18 05:12 Hyposegmented Neuts Not Reportable 10/16/18 05:12 Hypogranular Neuts Not Reportable 10/16/18 05:12 Not Reportable 10/16/18 05:12 Not Reportable 10/16/18 05:12 Not Reportable 10/16/18 05:12 Not Reportable 10/16/18 05:12 Not Reportable 10/16/18 05:12 Not Reportable 10/16/18 05:12 Consistent w auto 10/16/18 05:12 Not Reportable 10/16/18 05:12 Plt Clumps, EDTA Not Reportable 10/16/18 05:12 Not Reportable 10/16/18 05:12 Not Reportable 10/16/18 05:12 Not Reportable 10/16/18 05:12 Plt Morphology Comment Not Reportable 10/16/18 05:12 RBC Morphology Not Reportable 10/16/18 05:12 Dimorphic RBCs Not Reportable 10/16/18 05:12 Not Reportable 10/16/18 05:12 Not Reportable 10/16/18 05:12 Not Reportable 10/16/18 05:12 Not Reportable 10/16/18 05:12 Not Reportable 10/16/18 05:12 Not Reportable 10/16/18 05:12 Not Reportable 10/16/18 05:12 Not Reportable 10/16/18 05:12 Not Reportable 10/16/18 05:12 Not Reportable 10/16/18 05:12 Not Reportable 10/16/18 05:12 Rare 10/16/18 05:12 Not Reportable 10/16/18 05:12 Not Reportable 10/16/18 05:12 Not Reportable 10/16/18 05:12 Not Reportable 10/16/18 05:12 Not Reportable 10/16/18 05:12 Not Reportable 10/16/18 05:12 Not Reportable 10/16/18 05:12 Acanthocytes (Spur) Not Reportable 10/16/18 05:12 Rouleaux Not Reportable 10/16/18 05:12 Not Reportable 10/16/18 05:12 Not Reportable 10/16/18 05:12 Not Reportable 10/16/18 05:12 Not Reportable 10/16/18 05:12 Hem Pathologist Commnt No 10/16/18 05:12 PT 16.6 Sec. (12.2-14.9) H 10/09/18 10:50 INR 1.38 (0.87-1.13) H 10/09/18 10:50 APTT 39.4 Sec. (24.2-36.6) H 10/09/18 10:50 POC ABG pH 7.472 (7.35-7.45) H 10/18/18 03:29 ABG pH 7.452 pH Units (7.350-7.450) H 10/16/18 05:05 POC ABG pCO2 43.6 (35-45) 10/18/18 03:29 ABG pCO2 48.7 mm Hg 10/16/18 05:05 POC ABG pO2 97 (80-105) 10/18/18 03:29 ABG pO2 66.6 mm Hg (80.0-90.0) L 10/16/18 05:05 POC ABG HCO3 31.9 (22-26 mml/L) 10/18/18 03:29 ABG HCO3 33.3 mmol/L (20.0-26.0) H 10/16/18 05:05 POC ABG Total CO2 33 (23-27mmol/L) 10/18/18 03:29 POC ABG O2 Sat 98 10/18/18 03:29 ABG O2 Saturation 94.0 % (95.0-99.0) L 10/16/18 05:05 ABG O2 Content 11.4 (0.0-44) 10/16/18 05:05 POC ABG Base Excess 8 ((-2) - (+3)mmol/L) 10/18/18 03:29 ABG Base Excess 8.4 mmol/L (-2.0-3.0) H 10/16/18 05:05 ABG Hemoglobin 8.7 gm/dl (12.0-16.0) L 10/16/18 05:05 ABG Carboxyhemoglobin 1.5 % (0.0-5.0) 10/16/18 05:05 ABG Methemoglobin 0.6 % (0.0-1.5) 10/16/18 05:05 92.1 % (95.0-99.0) L 10/16/18 05:05 40 % 10/18/18 03:29 Sodium 141 mmol/L (137-145) 10/19/18 08:41 Potassium 4.3 mmol/L (3.6-5.0) 10/19/18 08:41 Chloride 100.3 mmol/L (98-107) 10/19/18 08:41 Carbon Dioxide 34 mmol/L (22-30) H 10/19/18 08:41 11 mmol/L 10/19/18 08:41 BUN 18 mg/dL (7-17) H 10/19/18 08:41 0.3 mg/dL (0.7-1.2) L 10/19/18 08:41 Estimated GFR > 60 ml/min 10/19/18 08:41 60 % 10/19/18 08:41 Glucose 137 mg/dL (65-100) H 10/19/18 08:41 POC Glucose 162 (70-105) H 10/19/18 05:39 Lactic Acid 1.90 mmol/L (0.7-2.0) 10/09/18 20:50 Calcium 10.5 mg/dL (8.4-10.2) H 10/19/18 08:41 Magnesium 3.70 mg/dL (1.7-2.3) H 10/09/18 10:50 0.30 mg/dL (0.1-1.2) 10/09/18 10:50 AST 51 units/L (5-40) H 10/09/18 10:50 ALT 67 units/L (7-56) H 10/09/18 10:50 60 units/L (35-129) 10/09/18 10:50 171 units/L (30-135) H 10/09/18 10:50 < 0.010 ng/mL (0.00-0.029) 10/09/18 10:50 2.70 mg/dL (0.00-1.30) H 10/12/18 13:03 5.3 g/dL (6.3-8.2) L 10/09/18 10:50 3.0 g/dL (3.9-5) L 10/09/18 10:50 1.3 % 10/09/18 10:50 Yellow (Yellow) 10/09/18 12:12 Hazy (Clear) 10/09/18 12:12 7.0 (5.0-7.0) 10/09/18 12:12 Ur Specific [place] 1.011 (1.003-1.030) 10/09/18 12:12 100 mg/dl mg/dL (Negative) 10/09/18 12:12 150 mg/dL (Negative) 10/09/18 12:12 Neg mg/dL (Negative) 10/09/18 12:12 Sm (Negative) 10/09/18 12:12 Neg (Negative) 10/09/18 12:12 Neg (Negative) 10/09/18 12:12 < 2.0 mg/dL (<2.0) 10/09/18 12:12 Ur Leukocyte Esterase Neg (Negative) 10/09/18 12:12 8.0 /HPF (0.0-6.0) H 10/09/18 12:12 7.0 /HPF (0.0-6.0) 10/09/18 12:12 Few /HPF 10/09/18 12:12 Vancomycin Trough 4.8 ug/mL (5.0-20.0) L 10/12/18 22:33 Salicylates < 0.3 mg/dL (2.8-20.0) L 10/09/18 10:50 Acetaminophen < 5.0 ug/mL (10.0-30.0) L 10/09/18 10:50 Plasma/Serum Alcohol < 0.01 % (0-0.07) 10/09/18 10:50 Active Medications - Current Medications Current Medications: Generic Name Dose Route Start Last Admin Trade Name Freq PRN Reason Stop Dose Admin Acetaminophen 650 mg 10/19/18 09:00 10/19/18 14:34 Tylenol FEEDTUBE 650 mg Q4H PRN Administration Pain, Mild (1-3) Albuterol 2.5 mg 10/12/18 12:20 Proventil IH Q4HRT PRN Shortness Of Breath Lipase/Protease/Amylase 1 each 10/10/18 10:31 Pancreazkyra Prajapati 10,500 Unit FEEDTUBE PRN PRN For Clogged Feeding Tube Apixaban 5 mg 10/09/18 22:00 10/19/18 09:37 Eliquis PO 5 mg BID SAUNDRA Administration Protocol Diltiazem HCl 60 mg 10/10/18 12:00 10/19/18 12:56 Cardizem PO 60 mg Q6HR SAUNDRA Administration Famotidine 20 mg 10/10/18 22:00 10/19/18 09:38 Pepcid PO 20 mg BID SAUNDRA Administration Fentanyl 50 mcg 10/09/18 10:48 10/09/18 14:24 Sublimaze IV 50 mcg Q10MIN PRN Administration ANALGESIA Hydralazine HCl 10 mg 10/16/18 02:07 10/16/18 02:20 Apresoline IV 10 mg Q4H PRN Administration Blood Pressure Hydralazine HCl 25 mg 10/16/18 15:00 10/19/18 09:38 Apresoline PO 25 mg BID SAUNDRA Administration Hydrophilic Ointment 1 applic 10/09/18 10:48 Vaseline Lip Therapy TP Q2HR PRN Dry Lips Fentanyl Citrate 2,000 mcg in 100 mls @ 3.561 mls/hr 10/09/18 11:00 Fentanyl Drip Premix IV TITR SAUNDRA Protocol 1 MCG/KG/HR Propofol 1,000 mg in 100 mls @ 2.025 mls/hr 10/17/18 14:00 10/18/18 10:58 Diprivan 10 Mg/Ml IV 0 mcg/kg/min TITR SAUNDRA 0 mls/hr Titration Protocol 5 MCG/KG/MIN Insulin Human Lispro 0 unit 10/10/18 12:00 10/19/18 12:04 Humalog SUB-Q 2 unit Q6HR SAUNDRA Administration Protocol Levetiracetam 500 mg 10/11/18 10:00 10/19/18 09:37 Keppra PO 500 mg BID SAUNDRA Administration Metoprolol Tartrate 5 mg 10/10/18 09:21 10/18/18 22:52 Lopressor IV 5 mg Q6HR PRN Administration Hypertension Metoprolol Tartrate 50 mg 10/15/18 14:25 10/19/18 09:37 Lopressor PO 50 mg BID SAUNDRA Administration Midazolam HCl 2 mg 10/12/18 12:21 Versed IV Q2H PRN Sedation Modafinil 100 mg 10/14/18 13:10 10/19/18 09:37 Provigil PO 100 mg QAM SAUNDRA Administration Multi-Ingred Cream/Lotion/Oil/Oint 1 applic 10/09/18 10:48 10/09/18 18:29 Artificial Tears Ophth Oint OU 1 applic Q4HR PRN Administration Dry Eye(s) Simple Syrup 15 ml 10/10/18 10:31 Simple Syrup FEEDTUBE PRN PRN Hypoglycemia Simple Syrup 30 ml 10/10/18 10:31 Simple Syrup FEEDTUBE PRN PRN Hypoglycemia Sodium Bicarbonate 325 mg 10/10/18 10:31 Sodium Bicarbonate FEEDTUBE PRN PRN For Clogged Feeding Tube Sodium Chloride 5 ml 10/09/18 10:48 Nacl 0.9% 500 Ml IV DIRECT PRN ARTERIAL PIN CHASER Sodium Chloride 10 ml 10/09/18 22:00 10/19/18 09:39 Sodium Chloride Flush Syringe 10 Ml IV 10 ml BID SAUNDRA Administration Sodium Chloride 10 ml 10/09/18 13:07 Sodium Chloride Flush Syringe 10 Ml IV PRN PRN LINE FLUSH Nutrition/Malnutrition Assess - Dietary Evaluation Nutrition/Malnutrition Findings: Nutrition Notes Start: 10/10/18 08:09 Freq: Status: Active Protocol: Document 10/13/18 10:34 LM (Rec: 10/13/18 10:40 LM [email or web address]) Nutrition Notes Initial or Follow up Reassessment Current Diagnosis Sepsis,Hypertension, Respiratory Failure Other Pertinent Diagnosis Anoxic brain injury Current Diet Vital AF 1.2 at 50 ml/hr Labs/Tests BG 139 Cr 0.3 Pertinent Medications Reviewed Height 5 ft 2 in Weight 63.7 kg [place] Body Weight (kg) 50.00 BMI 25.7 Subjective/Other Information TF running at 50 ml/hr. Pt tolerating TF well. Percent of energy/protein needs met: 100%/100% Burn Absent Trauma Absent #1 Nutrition Diagnosis Inadequate oral intake Diagnosis Progress(for reassessment Continues documentation) Is patient on ventilator? Yes Is Patient Ambulatory and/or Out of Bed No REE-([place]-[facility] Je[facility]-confined to bed) 1361.868 Calculation [facility]ations [facility] Additional Notes Protein: 76-127g (1.2-2 g/kg) Fluid: 1 ml/kcal Nutrition Intervention Change Diet Order: Continue TF Nutrition Support: Vital AF 1.2 at 50 ml/hr Flush 75 ml/hr Kcal 1,440 Protein (gm) 90 Fluid (mL) 973 Goal #1 Meet at least 75% of energy and protein needs Anticipated Discharge Needs: Unable to determine at this time Follow-Up By: 10/20/18 Additional Comments F/U for TF rate/tolerance
--- NOTE | 2018-10-19 16:19 | Progress Note ---
Assessment and Plan Cultures: 10/09 blood cultures: NGTD 10/09 urine cultures: Negative 10/09 sputum cultures: Negative A/P: 68 yo F PMHx HTN, GERD, SVT/Atrial Flutter on AC admitted with cardiac arrest, now with aspiration pneumonia 1. Septic shock secondary to aspiration pneumonia - Resolved. Present with tach ycardia and leukocytosis. While antibiotics are unlikely to improve her outcome given the anoxic brain injury, can continue them for now. CXR with worsening, though may just be evolution of disease. Ordered MRSA nares. 2. Cardiogenic shock - s/p resuscitation 3. Anoxic brain injury - poor prognosis for meaningful neurological recovery. 4. HTN 5. GERD 6. Fevers - Likely some component of central fevers given severe anoxic brain injury. 7. Acute respiratory failure with hypoxia Recs: - monitor off antibiotics. - Prognosis: grim Thank you for the consult, we will sign off. Please call with questions. Mumtaz Webster MD [facility] ([facility]) M: [phone] O: [phone] F: [phone] Subjective Date of service: 10/19/18 Principal diagnosis: Cardiac arrest with ROSC; Ac hypoxemic resp failure; Ac. encephalopathy Interval history: Remains non-responsive. Afebrile, improving white count. Objective - Exam Narrative Exam: Constitutional: intubated, non-responsive. Head, Ears, Nose: Normocephalic, atraumatic. External ears, nose normal Eyes: Conjunctivae/corneas clear. No icterus. No ptosis. Neck: Supple, no meningeal signs Oral: dentition fair, no thrush Cardiovascular: S1, S2 normal. Respiratory: Good air entry, clear to auscultation bilaterally GI: Soft, non-tender; bowel sounds normal. No peritoneal signs. Musculoskeletal: No pedal edema, no cyanosis. Skin: No rash or abscess Hem/Lymphatic: No palpable cervical or supraclavicular nodes. No lymphangitis Neurological: intubated, non-responsive - Constitutional Vitals: Vital Signs Temp Pulse Resp BP Pulse Ox 98.4 F 70 14 122/50 100 10/19/18 12:00 10/19/18 15:49 10/19/18 15:00 10/19/18 15:49 10/19/18 15:49 Temperature -Last 24 Hours Temperature 98.4 F Temperature 98.6 F Temperature 98.9 F Temperature 98.4 F Temperature 98.6 F - Labs CBC & Chem 7: 10/19/18 08:41 10/19/18 08:41 Labs: Abnormal lab results 10/18/18 10/18/18 10/19/18 Range/Units 18:06 23:23 05:39 WBC (4.5-11.0) K/mm3 RBC (3.65-5.03) M/mm3 Hgb (10.1-14.3) gm/dl Hct (30.3-42.9) % Carbon Dioxide (22-30) mmol/L BUN (7-17) mg/dL Creatinine (0.7-1.2) mg/dL Glucose (65-100) mg/dL POC Glucose 165 H 153 H 162 H (70-105) Calcium (8.4-10.2) mg/dL 10/19/18 10/19/18 10/19/18 Range/Units 08:41 08:41 12:07 WBC 13.4 H (4.5-11.0) K/mm3 RBC 3.27 L (3.65-5.03) M/mm3 Hgb 9.5 L (10.1-14.3) gm/dl Hct 29.7 L (30.3-42.9) % Carbon Dioxide 34 H (22-30) mmol/L BUN 18 H (7-17) mg/dL Creatinine 0.3 L (0.7-1.2) mg/dL Glucose 137 H (65-100) mg/dL POC Glucose 183 H (70-105) Calcium 10.5 H (8.4-10.2) mg/dL
--- NOTE | 2018-10-20 01:50 | Cat Scan Report ---
CT HEAD WITHOUT CONTRAST INDICATION: Anoxic brain injury. Follow-up TECHNIQUE: All CT scans at this location are performed using CT dose reduction for ALARA by means of automated exposure control. COMPARISON: 10/17/2018 FINDINGS: BRAIN: No hemorrhage is seen. The diffuse cerebral edema seen previously appears improved. Better vis ualization of the sulci is seen and lateral ventricular size has increased. Mild improvement in poon- white distinction is seen. Basilar cisterns are visualized. No shift is seen. No focal hypodense sarmad ical lesion is seen. ORBITS: Normal as visualized. SOFT TISSUES OF HEAD: Normal. CALVARIUM: Normal. VISUALIZED PARANASAL SINUSES AND MASTOID AIR CELLS: Clear. ADDITIONAL FINDINGS: None. IMPRESSION: Improved cerebral edema Signer Name: Saeed Whiteside MD Signed: 10/20/2018 1:45 AM Workstation Name: [id number]
[2018-10-20] MEDS: CARDIZEM PO SCH ×4 (06:46→23:57)
[2018-10-20] MEDS: HumaLOG SUB-Q SCH ×4 (06:46→23:56)
--- NOTE | 2018-10-20 09:54 | Vascular Lab Report ---
RIGHT UPPER EXTREMITY VENOUS DOPPLER ULTRASOUND HISTORY: Right upper extremity swelling COMPARISON: None. TECHNIQUE: Grayscale, color and spectral Doppler imaging of the venous system of the right upper extr emity was performed. FINDINGS: Internal Jugular Vein: Normal grayscale appearance and flow. Subclavian Vein: Normal grayscale appearance and flow. Axillary Vein: Normal venous flow, compressibility and augmentation. Brachial vein: Normal venous flow, compressibility and augmentation. Basilic vein: The basilic vein is noncompressible from the distal biceps to the antecubital fossa. Cephalic vein: The cephalic vein is partially compressible from the proximal to the distal forearm. Additional Findings: None. IMPRESSION: Negative for DVT. Positive for superficial venous thrombosis in the right cephalic and basilic veins as described. Signer Name: Khoi Cheung Jr, MD Signed: 10/20/2018 9:50 AM Workstation Name: [id number]
[2018-10-20] MEDS: PROVIGIL PO SCH (11:03)
[2018-10-20] MEDS: KEPPRA PO SCH ×2 (11:03→21:49)
[2018-10-20] MEDS: ELIQUIS PO SCH ×2 (11:03→21:46)
[2018-10-20] MEDS: ARTIFICIAL TEARS OPHTH OINT OU PRN (11:03)
[2018-10-20] MEDS: APRESOLINE PO SCH ×2 (11:04→21:46)
[2018-10-20] MEDS: LOPRESSOR PO SCH ×2 (11:04→21:47)
[2018-10-20] MEDS: PEPCID PO SCH ×2 (11:04→21:46)
[2018-10-20] MEDS ORDERED: SIMPLE SYRUP FEEDTUBE PRN ×2 (11:20)
[2018-10-20] MEDS ORDERED: PANCREAZE DR 10,500 UNIT FEEDTUBE PRN (11:20)
[2018-10-20] MEDS ORDERED: SODIUM BICARBONATE FEEDTUBE PRN (11:20)
--- NOTE | 2018-10-20 12:55 | Progress Note ---
Assessment and Plan s/p cardiopulmonary arrest-OOH with ROSC Acute hyoxemic respiratory failure on MVS Acute hypercapnic respiratory failure Acute encephalopathy- metabolic, anoxic Sepsis Aspiration pneumonia LLL Left pleural effusion Myoclonic jerks, post arrest Atrial fibrillation with RVR -VAP bundle addressed -Supplemental O2 to keep O2 sats >94 -ABG and CXR prn -AEDs on Keppra -VTE prophylaxis, on anticoagulation -Stress ulcer prophylaxis -Continue OGT for nutrition and oral medications - Continue tube feeding for nutritional support; accucheck with glycemic control, target blood glucose 140-180mg/dL -Aspiration precautions, HOB >40 -Chronic home medications -Supportive care -Mobility for pressure ulcer prevention -Critical care bundles addressed -Seizure precautions CONDITION: CRITICAL PROGNOSIS: GUARDED TO GRAVE CODE STATUS: DNAR Goals of care meeting with 4 sons on Tuesday The high probability of a clinically significant, sudden or life threatening deterioration of the [Neurology Respiratory, Cardiovascular] system(s) required my full and direct attention, intervention and personal management. The aggregate critical care time was [35] minutes. This time is in addition to time spent performing reported procedures but includes the following: [x] Data Review and interpretation [x] Patient assessment and monitoring of vital signs [x] Documentation [x] Medication orders and management Subjective Date of service: 10/20/18 Principal diagnosis: Cardiac arrest with ROSC; Ac hypoxemic resp failure; Ac. encephalopathy Interval history: Follow up for: OOH cardiac arrest with ROSC; acute hypoxic-hypercapnic respiratory failure; myoclonic jerks; acute metabolic encephalopathy Seen ad examined. 24 hour events reviewed. Vitals, labs, medications, chart and imaging reviewed. Discussed in ICU-IDT rounds. Vitals, labs, medications, chart reviewed. No acute overnight events. No fevers, no vomiting, Mental status changes persist. Objective Vital Signs - 12hr 10/20/18 10/20/18 10/20/18 01:00 02:00 03:00 Temperature Pulse Rate 67 59 L 70 Pulse Rate [ From Monitor] Respiratory 12 12 14 Rate Blood Pressure 122/51 128/54 137/59 O2 Sat by Pulse 100 99 100 Oximetry 10/20/18 10/20/18 10/20/18 03:53 04:00 05:00 Temperature 97.6 F Pulse Rate 67 68 64 Pulse Rate [ 68 From Monitor] Respiratory 14 12 Rate Blood Pressure 137/59 136/58 123/53 O2 Sat by Pulse 100 100 100 Oximetry 10/20/18 10/20/18 10/20/18 06:00 06:46 07:00 Temperature Pulse Rate 70 67 71 Pulse Rate [ From Monitor] Respiratory 12 12 Rate Blood Pressure 140/60 140/60 141/60 O2 Sat by Pulse 100 100 Oximetry 10/20/18 10/20/18 10/20/18 07:16 08:00 09:00 Temperature 97.9 F Pulse Rate 72 71 66 Pulse Rate [ From Monitor] Respiratory 14 20 Rate Blood Pressure 141/60 140/61 128/53 O2 Sat by Pulse 100 100 100 Oximetry 10/20/18 10/20/18 10/20/18 10:00 11:01 12:00 Temperature 97.6 F Pulse Rate 69 71 57 L Pulse Rate [ From Monitor] Respiratory 12 20 12 Rate Blood Pressure 127/62 127/62 112/46 O2 Sat by Pulse 100 100 100 Oximetry 10/20/18 12:01 Temperature Pulse Rate 62 Pulse Rate [ From Monitor] Respiratory Rate Blood Pressure 112/46 O2 Sat by Pulse 100 Oximetry Constitutional: no acute distress, other (unresponsive, reported eye opening) Eyes: non-icteric ENT: oropharynx moist, other (ETT approx 23cm SUELLEN) Neck: supple, no lymphadenopathy, no JVD Effort: normal Ascultation: Bilateral: diminished breath sounds, rhonchi Percussion: Bilateral: not dull Cardiovascular: regular rate and rhythm, other (S1,S2) Gastrointestinal: normoactive bowel sounds, soft, non-tender Integumentary: normal Extremities: no cyanosis, no edema, pink and warm, pulses normal Neurologic: unable to assess, other (posturing to painful stimuli, Pupils are minimally reactive) Psychiatric: other (unable to assess) CBC and BMP: 10/21/18 04:11 10/21/18 04:11 ABG, PT/INR, D-dimer: ABG POC ABG pH 7.472 (7.35-7.45) H 10/18/18 03:29 ABG pH 7.452 pH Units (7.350-7.450) H 10/16/18 05:05 POC ABG pCO2 43.6 (35-45) 10/18/18 03:29 ABG pCO2 48.7 mm Hg 10/16/18 05:05 POC ABG pO2 97 (80-105) 10/18/18 03:29 ABG pO2 66.6 mm Hg (80.0-90.0) L 10/16/18 05:05 POC ABG HCO3 31.9 (22-26 mml/L) 10/18/18 03:29 POC ABG Total CO2 33 (23-27mmol/L) 10/18/18 03:29 POC ABG O2 Sat 98 10/18/18 03:29 ABG O2 Saturation 94.0 % (95.0-99.0) L 10/16/18 05:05 PT/INR, D-dimer PT 16.6 Sec. (12.2-14.9) H 10/09/18 10:50 INR 1.38 (0.87-1.13) H 10/09/18 10:50 Abnormal lab findings: Abnormal Labs 10/09/18 10/09/18 10/09/18 10:14 10:50 10:50 WBC RBC Hgb Hct RDW Lymph % (Auto) [place] % (Auto) [place] # Seg Neutrophils % Seg Neuts % (Manual) Lymphocytes % (Manual) Seg Neutrophils # Seg Neutrophils # Man Lymphocytes # (Manual) Monocytes # (Manual) PT 16.6 H INR 1.38 H APTT 39.4 H POC ABG pH ABG pH POC ABG pCO2 POC ABG pO2 ABG pO2 ABG HCO3 ABG O2 Saturation ABG Base Excess ABG Hemoglobin Oxyhemoglobin Sodium Chloride 90.3 L Carbon Dioxide BUN 21 H Creatinine Glucose 315 H POC Glucose 344 H Lactic Acid Calcium Magnesium AST 51 H ALT 67 H Total Creatine Kinase C-Reactive Protein Total Protein 5.3 L Albumin 3.0 L Urine WBC (Auto) Vancomycin Trough Salicylates Acetaminophen 10/09/18 10/09/18 10/09/18 10:50 10:50 10:50 WBC RBC Hgb Hct RDW Lymph % (Auto) [place] % (Auto) [place] # Seg Neutrophils % Seg Neuts % (Manual) Lymphocytes % (Manual) Seg Neutrophils # Seg Neutrophils # Man Lymphocytes # (Manual) Monocytes # (Manual) PT INR APTT POC ABG pH ABG pH POC ABG pCO2 POC ABG pO2 ABG pO2 ABG HCO3 ABG O2 Saturation ABG Base Excess ABG Hemoglobin Oxyhemoglobin Sodium Chloride Carbon Dioxide BUN Creatinine Glucose POC Glucose Lactic Acid Calcium Magnesium 3.70 H AST ALT Total Creatine Kinase 171 H C-Reactive Protein Total Protein Albumin Urine WBC (Auto) Vancomycin Trough Salicylates < 0.3 L Acetaminophen < 5.0 L 10/09/18 10/09/18 10/09/18 10:50 10:55 11:38 WBC 31.3 H RBC Hgb Hct RDW 13.0 L Lymph % (Auto) [place] % (Auto) [place] # Seg Neutrophils % Seg Neuts % (Manual) 91.5 H Lymphocytes % (Manual) 4.5 L Seg Neutrophils # Seg Neutrophils # Man 28.6 H Lymphocytes # (Manual) Monocytes # (Manual) 1.1 H PT INR APTT POC ABG pH 7.243 L ABG pH POC ABG pCO2 68.0 H POC ABG pO2 389 H ABG pO2 ABG HCO3 ABG O2 Saturation ABG Base Excess ABG Hemoglobin Oxyhemoglobin Sodium Chloride Carbon Dioxide BUN Creatinine Glucose POC Glucose Lactic Acid 9.30 H* Calcium Magnesium AST ALT Total Creatine Kinase C-Reactive Protein Total Protein Albumin Urine WBC (Auto) Vancomycin Trough Salicylates Acetaminophen 10/09/18 10/09/18 10/09/18 12:12 15:28 16:27 WBC RBC Hgb Hct RDW Lymph % (Auto) [place] % (Auto) [place] # Seg Neutrophils % Seg Neuts % (Manual) Lymphocytes % (Manual) Seg Neutrophils # Seg Neutrophils # Man Lymphocytes # (Manual) Monocytes # (Manual) PT INR APTT POC ABG pH 7.598 H ABG pH POC ABG pCO2 POC ABG pO2 61 L ABG pO2 ABG HCO3 ABG O2 Saturation ABG Base Excess ABG Hemoglobin Oxyhemoglobin Sodium Chloride Carbon Dioxide BUN Creatinine Glucose POC Glucose 173 H Lactic Acid Calcium Magnesium AST ALT Total Creatine Kinase C-Reactive Protein Total Protein Albumin Urine WBC (Auto) 8.0 H Vancomycin Trough Salicylates Acetaminophen 10/09/18 10/09/18 10/09/18 16:44 16:44 18:38 WBC RBC Hgb Hct RDW Lymph % (Auto) [place] % (Auto) [place] # Seg Neutrophils % Seg Neuts % (Manual) Lymphocytes % (Manual) Seg Neutrophils # Seg Neutrophils # Man Lymphocytes # (Manual) Monocytes # (Manual) PT INR APTT POC ABG pH ABG pH POC ABG pCO2 POC ABG pO2 ABG pO2 ABG HCO3 ABG O2 Saturation ABG Base Excess ABG Hemoglobin Oxyhemoglobin Sodium Chloride Carbon Dioxide BUN Creatinine Glucose POC Glucose 177 H Lactic Acid 3.80 H* 3.70 H* Calcium Magnesium AST ALT Total Creatine Kinase C-Reactive Protein Total Protein Albumin Urine WBC (Auto) Vancomycin Trough Salicylates Acetaminophen 10/10/18 10/10/18 10/10/18 00:33 04:24 05:32 WBC RBC Hgb Hct RDW Lymph % (Auto) [place] % (Auto) [place] # Seg Neutrophils % Seg Neuts % (Manual) Lymphocytes % (Manual) Seg Neutrophils # Seg Neutrophils # Man Lymphocytes # (Manual) Monocytes # (Manual) PT INR APTT POC ABG pH 7.602 H ABG pH POC ABG pCO2 POC ABG pO2 170 H ABG pO2 ABG HCO3 ABG O2 Saturation ABG Base Excess ABG Hemoglobin Oxyhemoglobin Sodium Chloride Carbon Dioxide BUN Creatinine Glucose POC Glucose 177 H 190 H Lactic Acid Calcium Magnesium AST ALT Total Creatine Kinase C-Reactive Protein Total Protein Albumin Urine WBC (Auto) Vancomycin Trough Salicylates Acetaminophen 10/10/18 10/10/18 10/10/18 07:54 07:54 12:18 WBC 38.6 H RBC Hgb Hct RDW Lymph % (Auto) [place] % (Auto) [place] # Seg Neutrophils % Seg Neuts % (Manual) Lymphocytes % (Manual) Seg Neutrophils # Seg Neutrophils # Man Lymphocytes # (Manual) Monocytes # (Manual) PT INR APTT POC ABG pH ABG pH POC ABG pCO2 POC ABG pO2 ABG pO2 ABG HCO3 ABG O2 Saturation ABG Base Excess ABG Hemoglobin Oxyhemoglobin Sodium Chloride Carbon Dioxide BUN 31 H Creatinine Glucose 124 H POC Glucose 151 H Lactic Acid Calcium Magnesium AST ALT Total Creatine Kinase C-Reactive Protein Total Protein Albumin Urine WBC (Auto) Vancomycin Trough Salicylates Acetaminophen 10/10/18 10/10/18 10/11/18 18:17 23:09 03:40 WBC RBC Hgb Hct RDW Lymph % (Auto) [place] % (Auto) [place] # Seg Neutrophils % Seg Neuts % (Manual) Lymphocytes % (Manual) Seg Neutrophils # Seg Neutrophils # Man Lymphocytes # (Manual) Monocytes # (Manual) PT INR APTT POC ABG pH ABG pH POC ABG pCO2 POC ABG pO2 ABG pO2 91.1 H ABG HCO3 28.8 H ABG O2 Saturation ABG Base Excess ABG Hemoglobin 7.6 L Oxyhemoglobin Sodium Chloride Carbon Dioxide BUN Creatinine Glucose POC Glucose 132 H 124 H Lactic Acid Calcium Magnesium AST ALT Total Creatine Kinase C-Reactive Protein Total Protein Albumin Urine WBC (Auto) Vancomycin Trough Salicylates Acetaminophen 10/11/18 10/11/18 10/11/18 04:45 04:45 06:50 WBC 25.8 H RBC 3.41 L Hgb Hct RDW Lymph % (Auto) [place] % (Auto) [place] # Seg Neutrophils % Seg Neuts % (Manual) 83.0 H Lymphocytes % (Manual) Seg Neutrophils # Seg Neutrophils # Man 21.4 H Lymphocytes # (Manual) Monocytes # (Manual) PT INR APTT POC ABG pH ABG pH POC ABG pCO2 POC ABG pO2 ABG pO2 ABG HCO3 ABG O2 Saturation ABG Base Excess ABG Hemoglobin Oxyhemoglobin Sodium Chloride Carbon Dioxide BUN 26 H Creatinine 0.6 L Glucose 134 H POC Glucose 134 H Lactic Acid Calcium Magnesium AST ALT Total Creatine Kinase C-Reactive Protein Total Protein Albumin Urine WBC (Auto) Vancomycin Trough Salicylates Acetaminophen 10/11/18 10/11/18 10/12/18 13:10 18:08 00:25 WBC RBC Hgb Hct RDW Lymph % (Auto) [place] % (Auto) [place] # Seg Neutrophils % Seg Neuts % (Manual) Lymphocytes % (Manual) Seg Neutrophils # Seg Neutrophils # Man Lymphocytes # (Manual) Monocytes # (Manual) PT INR APTT POC ABG pH ABG pH POC ABG pCO2 POC ABG pO2 ABG pO2 ABG HCO3 ABG O2 Saturation ABG Base Excess ABG Hemoglobin Oxyhemoglobin Sodium Chloride Carbon Dioxide BUN Creatinine Glucose POC Glucose 160 H 166 H 136 H Lactic Acid Calcium Magnesium AST ALT Total Creatine Kinase C-Reactive Protein Total Protein Albumin Urine WBC (Auto) Vancomycin Trough Salicylates Acetaminophen 10/12/18 10/12/18 10/12/18 03:56 04:17 04:17 WBC 19.2 H RBC 3.04 L Hgb 8.9 L Hct 27.2 L RDW Lymph % (Auto) 8.5 L [place] % (Auto) [place] # 1.4 H Seg Neutrophils % 84.2 H Seg Neuts % (Manual) Lymphocytes % (Manual) Seg Neutrophils # 16.2 H Seg Neutrophils # Man Lymphocytes # (Manual) Monocytes # (Manual) PT INR APTT POC ABG pH ABG pH POC ABG pCO2 POC ABG pO2 ABG pO2 77.9 L ABG HCO3 29.4 H ABG O2 Saturation ABG Base Excess 4.4 H ABG Hemoglobin 10.2 L Oxyhemoglobin 94.7 L Sodium Chloride Carbon Dioxide BUN Creatinine 0.5 L Glucose 139 H POC Glucose Lactic Acid Calcium Magnesium AST ALT Total Creatine Kinase C-Reactive Protein Total Protein Albumin Urine WBC (Auto) Vancomycin Trough Salicylates Acetaminophen 10/12/18 10/12/18 10/12/18 05:51 11:46 13:03 WBC RBC Hgb Hct RDW Lymph % (Auto) [place] % (Auto) [place] # Seg Neutrophils % Seg Neuts % (Manual) Lymphocytes % (Manual) Seg Neutrophils # Seg Neutrophils # Man Lymphocytes # (Manual) Monocytes # (Manual) PT INR APTT POC ABG pH ABG pH POC ABG pCO2 POC ABG pO2 ABG pO2 ABG HCO3 ABG O2 Saturation ABG Base Excess ABG Hemoglobin Oxyhemoglobin Sodium Chloride Carbon Dioxide BUN Creatinine Glucose POC Glucose 163 H 162 H Lactic Acid Calcium Magnesium AST ALT Total Creatine Kinase C-Reactive Protein 2.70 H Total Protein Albumin Urine WBC (Auto) Vancomycin Trough Salicylates Acetaminophen 10/12/18 10/12/18 10/12/18 17:44 22:33 23:54 WBC RBC Hgb Hct RDW Lymph % (Auto) [place] % (Auto) [place] # Seg Neutrophils % Seg Neuts % (Manual) Lymphocytes % (Manual) Seg Neutrophils # Seg Neutrophils # Man Lymphocytes # (Manual) Monocytes # (Manual) PT INR APTT POC ABG pH ABG pH POC ABG pCO2 POC ABG pO2 ABG pO2 ABG HCO3 ABG O2 Saturation ABG Base Excess ABG Hemoglobin Oxyhemoglobin Sodium Chloride Carbon Dioxide BUN Creatinine Glucose POC Glucose 143 H 180 H Lactic Acid Calcium Magnesium AST ALT Total Creatine Kinase C-Reactive Protein Total Protein Albumin Urine WBC (Auto) Vancomycin Trough 4.8 L Salicylates Acetaminophen 10/13/18 10/13/18 10/13/18 02:30 02:30 03:10 WBC 19.8 H RBC 3.12 L Hgb 9.2 L Hct 28.2 L RDW Lymph % (Auto) 8.1 L [place] % (Auto) 8.0 H [place] # 1.6 H Seg Neutrophils % 83.2 H Seg Neuts % (Manual) Lymphocytes % (Manual) Seg Neutrophils # 16.5 H Seg Neutrophils # Man Lymphocytes # (Manual) Monocytes # (Manual) PT INR APTT POC ABG pH ABG pH POC ABG pCO2 POC ABG pO2 ABG pO2 ABG HCO3 32.9 H ABG O2 Saturation ABG Base Excess 7.2 H ABG Hemoglobin 10.8 L Oxyhemoglobin Sodium Chloride Carbon Dioxide BUN Creatinine 0.3 L Glucose 139 H POC Glucose Lactic Acid Calcium Magnesium AST ALT Total Creatine Kinase C-Reactive Protein Total Protein Albumin Urine WBC (Auto) Vancomycin Trough Salicylates Acetaminophen 10/13/18 10/13/18 10/13/18 05:17 11:52 17:18 WBC RBC Hgb Hct RDW Lymph % (Auto) [place] % (Auto) [place] # Seg Neutrophils % Seg Neuts % (Manual) Lymphocytes % (Manual) Seg Neutrophils # Seg Neutrophils # Man Lymphocytes # (Manual) Monocytes # (Manual) PT INR APTT POC ABG pH ABG pH POC ABG pCO2 56.7 H POC ABG pO2 63 L ABG pO2 ABG HCO3 ABG O2 Saturation ABG Base Excess ABG Hemoglobin Oxyhemoglobin Sodium Chloride Carbon Dioxide BUN Creatinine Glucose POC Glucose 192 H 200 H Lactic Acid Calcium Magnesium AST ALT Total Creatine Kinase C-Reactive Protein Total Protein Albumin Urine WBC (Auto) Vancomycin Trough Salicylates Acetaminophen 10/13/18 10/14/18 10/14/18 17:53 00:00 03:55 WBC RBC Hgb Hct RDW Lymph % (Auto) [place] % (Auto) [place] # Seg Neutrophils % Seg Neuts % (Manual) Lymphocytes % (Manual) Seg Neutrophils # Seg Neutrophils # Man Lymphocytes # (Manual) Monocytes # (Manual) PT INR APTT POC ABG pH ABG pH POC ABG pCO2 POC ABG pO2 ABG pO2 ABG HCO3 34.1 H ABG O2 Saturation ABG Base Excess 8.4 H ABG Hemoglobin 10.6 L Oxyhemoglobin 94.8 L Sodium Chloride Carbon Dioxide BUN Creatinine Glucose POC Glucose 215 H 236 H Lactic Acid Calcium Magnesium AST ALT Total Creatine Kinase C-Reactive Protein Total Protein Albumin Urine WBC (Auto) Vancomycin Trough Salicylates Acetaminophen 10/14/18 10/14/18 10/14/18 05:00 08:05 08:05 WBC 16.8 H RBC 3.27 L Hgb 9.8 L Hct 29.7 L RDW 13.1 L Lymph % (Auto) 7.5 L [place] % (Auto) 8.6 H [place] # 1.4 H Seg Neutrophils % 82.4 H Seg Neuts % (Manual) Lymphocytes % (Manual) Seg Neutrophils # 13.8 H Seg Neutrophils # Man Lymphocytes # (Manual) Monocytes # (Manual) PT INR APTT POC ABG pH ABG pH POC ABG pCO2 POC ABG pO2 ABG pO2 ABG HCO3 ABG O2 Saturation ABG Base Excess ABG Hemoglobin Oxyhemoglobin Sodium Chloride Carbon Dioxide 33 H BUN Creatinine 0.3 L Glucose 140 H POC Glucose 170 H Lactic Acid Calcium Magnesium AST ALT Total Creatine Kinase C-Reactive Protein Total Protein Albumin Urine WBC (Auto) Vancomycin Trough Salicylates Acetaminophen 10/14/18 10/14/18 10/14/18 12:04 14:06 18:04 WBC RBC Hgb Hct RDW Lymph % (Auto) [place] % (Auto) [place] # Seg Neutrophils % Seg Neuts % (Manual) Lymphocytes % (Manual) Seg Neutrophils # Seg Neutrophils # Man Lymphocytes # (Manual) Monocytes # (Manual) PT INR APTT POC ABG pH 7.330 L ABG pH POC ABG pCO2 67.6 H POC ABG pO2 75 L ABG pO2 ABG HCO3 ABG O2 Saturation ABG Base Excess ABG Hemoglobin Oxyhemoglobin Sodium Chloride Carbon Dioxide BUN Creatinine Glucose POC Glucose 202 H 189 H Lactic Acid Calcium Magnesium AST ALT Total Creatine Kinase C-Reactive Protein Total Protein Albumin Urine WBC (Auto) Vancomycin Trough Salicylates Acetaminophen 10/14/18 10/15/18 10/15/18 23:16 04:58 05:03 WBC 18.0 H RBC 3.36 L Hgb Hct RDW Lymph % (Auto) 7.5 L [place] % (Auto) [place] # 1.3 H Seg Neutrophils % 83.2 H Seg Neuts % (Manual) Lymphocytes % (Manual) Seg Neutrophils # 15.0 H Seg Neutrophils # Man Lymphocytes # (Manual) Monocytes # (Manual) PT INR APTT POC ABG pH ABG pH POC ABG pCO2 54.9 H POC ABG pO2 72 L ABG pO2 ABG HCO3 ABG O2 Saturation ABG Base Excess ABG Hemoglobin Oxyhemoglobin Sodium Chloride Carbon Dioxide BUN Creatinine Glucose POC Glucose 187 H Lactic Acid Calcium Magnesium AST ALT Total Creatine Kinase C-Reactive Protein Total Protein Albumin Urine WBC (Auto) Vancomycin Trough Salicylates Acetaminophen 10/15/18 10/15/18 10/15/18 05:03 05:54 11:53 WBC RBC Hgb Hct RDW Lymph % (Auto) [place] % (Auto) [place] # Seg Neutrophils % Seg Neuts % (Manual) Lymphocytes % (Manual) Seg Neutrophils # Seg Neutrophils # Man Lymphocytes # (Manual) Monocytes # (Manual) PT INR APTT POC ABG pH ABG pH POC ABG pCO2 POC ABG pO2 ABG pO2 ABG HCO3 ABG O2 Saturation ABG Base Excess ABG Hemoglobin Oxyhemoglobin Sodium Chloride Carbon Dioxide 33 H BUN 19 H Creatinine 0.3 L Glucose 161 H POC Glucose 191 H 188 H Lactic Acid Calcium Magnesium AST ALT Total Creatine Kinase C-Reactive Protein Total Protein Albumin Urine WBC (Auto) Vancomycin Trough Salicylates Acetaminophen 10/15/18 10/15/18 10/16/18 17:30 23:15 05:05 WBC RBC Hgb Hct RDW Lymph % (Auto) [place] % (Auto) [place] # Seg Neutrophils % Seg Neuts % (Manual) Lymphocytes % (Manual) Seg Neutrophils # Seg Neutrophils # Man Lymphocytes # (Manual) Monocytes # (Manual) PT INR APTT POC ABG pH ABG pH 7.452 H POC ABG pCO2 POC ABG pO2 ABG pO2 66.6 L ABG HCO3 33.3 H ABG O2 Saturation 94.0 L ABG Base Excess 8.4 H ABG Hemoglobin 8.7 L Oxyhemoglobin 92.1 L Sodium Chloride Carbon Dioxide BUN Creatinine Glucose POC Glucose 178 H 177 H Lactic Acid Calcium Magnesium AST ALT Total Creatine Kinase C-Reactive Protein Total Protein Albumin Urine WBC (Auto) Vancomycin Trough Salicylates Acetaminophen 10/16/18 10/16/18 10/16/18 05:12 05:12 05:49 WBC 21.9 H RBC 3.62 L Hgb Hct RDW Lymph % (Auto) [place] % (Auto) [place] # Seg Neutrophils % Seg Neuts % (Manual) 93.0 H Lymphocytes % (Manual) 1.0 L Seg Neutrophils # Seg Neutrophils # Man 20.4 H Lymphocytes # (Manual) 0.2 L Monocytes # (Manual) 0.9 H PT INR APTT POC ABG pH ABG pH POC ABG pCO2 POC ABG pO2 ABG pO2 ABG HCO3 ABG O2 Saturation ABG Base Excess ABG Hemoglobin Oxyhemoglobin Sodium 136 L Chloride 96.3 L Carbon Dioxide 34 H BUN 20 H Creatinine 0.3 L Glucose 183 H POC Glucose 187 H Lactic Acid Calcium Magnesium AST ALT Total Creatine Kinase C-Reactive Protein Total Protein Albumin Urine WBC (Auto) Vancomycin Trough Salicylates Acetaminophen 10/16/18 10/16/18 10/16/18 11:25 17:41 23:08 WBC RBC Hgb Hct RDW Lymph % (Auto) [place] % (Auto) [place] # Seg Neutrophils % Seg Neuts % (Manual) Lymphocytes % (Manual) Seg Neutrophils # Seg Neutrophils # Man Lymphocytes # (Manual) Monocytes # (Manual) PT INR APTT POC ABG pH ABG pH POC ABG pCO2 POC ABG pO2 ABG pO2 ABG HCO3 ABG O2 Saturation ABG Base Excess ABG Hemoglobin Oxyhemoglobin Sodium Chloride Carbon Dioxide BUN Creatinine Glucose POC Glucose 200 H 184 H 166 H Lactic Acid Calcium Magnesium AST ALT Total Creatine Kinase C-Reactive Protein Total Protein Albumin Urine WBC (Auto) Vancomycin Trough Salicylates Acetaminophen 10/17/18 10/17/18 10/17/18 04:32 04:32 05:12 WBC 19.9 H RBC 3.53 L Hgb Hct RDW Lymph % (Auto) 6.8 L [place] % (Auto) 7.8 H [place] # 1.5 H Seg Neutrophils % 84.2 H Seg Neuts % (Manual) Lymphocytes % (Manual) Seg Neutrophils # 16.7 H Seg Neutrophils # Man Lymphocytes # (Manual) Monocytes # (Manual) PT INR APTT POC ABG pH ABG pH POC ABG pCO2 POC ABG pO2 ABG pO2 ABG HCO3 ABG O2 Saturation ABG Base Excess ABG Hemoglobin Oxyhemoglobin Sodium Chloride Carbon Dioxide 32 H BUN 20 H Creatinine 0.3 L Glucose 155 H POC Glucose 164 H Lactic Acid Calcium Magnesium AST ALT Total Creatine Kinase C-Reactive Protein Total Protein Albumin Urine WBC (Auto) Vancomycin Trough Salicylates Acetaminophen 10/17/18 10/17/18 10/17/18 12:24 13:21 18:03 WBC RBC Hgb Hct RDW Lymph % (Auto) [place] % (Auto) [place] # Seg Neutrophils % Seg Neuts % (Manual) Lymphocytes % (Manual) Seg Neutrophils # Seg Neutrophils # Man Lymphocytes # (Manual) Monocytes # (Manual) PT INR APTT POC ABG pH 7.337 L ABG pH POC ABG pCO2 68.3 H POC ABG pO2 79 L ABG pO2 ABG HCO3 ABG O2 Saturation ABG Base Excess ABG Hemoglobin Oxyhemoglobin Sodium Chloride Carbon Dioxide BUN Creatinine Glucose POC Glucose 169 H 139 H Lactic Acid Calcium Magnesium AST ALT Total Creatine Kinase C-Reactive Protein Total Protein Albumin Urine WBC (Auto) Vancomycin Trough Salicylates Acetaminophen 10/17/18 10/18/18 10/18/18 23:13 03:29 05:33 WBC RBC Hgb Hct RDW Lymph % (Auto) [place] % (Auto) [place] # Seg Neutrophils % Seg Neuts % (Manual) Lymphocytes % (Manual) Seg Neutrophils # Seg Neutrophils # Man Lymphocytes # (Manual) Monocytes # (Manual) PT INR APTT POC ABG pH 7.472 H ABG pH POC ABG pCO2 POC ABG pO2 ABG pO2 ABG HCO3 ABG O2 Saturation ABG Base Excess ABG Hemoglobin Oxyhemoglobin Sodium Chloride Carbon Dioxide BUN Creatinine Glucose POC Glucose 170 H 151 H Lactic Acid Calcium Magnesium AST ALT Total Creatine Kinase C-Reactive Protein Total Protein Albumin Urine WBC (Auto) Vancomycin Trough Salicylates Acetaminophen 10/18/18 10/18/18 10/18/18 11:37 18:06 23:23 WBC RBC Hgb Hct RDW Lymph % (Auto) [place] % (Auto) [place] # Seg Neutrophils % Seg Neuts % (Manual) Lymphocytes % (Manual) Seg Neutrophils # Seg Neutrophils # Man Lymphocytes # (Manual) Monocytes # (Manual) PT INR APTT POC ABG pH ABG pH POC ABG pCO2 POC ABG pO2 ABG pO2 ABG HCO3 ABG O2 Saturation ABG Base Excess ABG Hemoglobin Oxyhemoglobin Sodium Chloride Carbon Dioxide BUN Creatinine Glucose POC Glucose 170 H 165 H 153 H Lactic Acid Calcium Magnesium AST ALT Total Creatine Kinase C-Reactive Protein Total Protein Albumin Urine WBC (Auto) Vancomycin Trough Salicylates Acetaminophen 10/19/18 10/19/18 10/19/18 05:39 08:41 08:41 WBC 13.4 H RBC 3.27 L Hgb 9.5 L Hct 29.7 L RDW Lymph % (Auto) [place] % (Auto) [place] # Seg Neutrophils % Seg Neuts % (Manual) Lymphocytes % (Manual) Seg Neutrophils # Seg Neutrophils # Man Lymphocytes # (Manual) Monocytes # (Manual) PT INR APTT POC ABG pH ABG pH POC ABG pCO2 POC ABG pO2 ABG pO2 ABG HCO3 ABG O2 Saturation ABG Base Excess ABG Hemoglobin Oxyhemoglobin Sodium Chloride Carbon Dioxide 34 H BUN 18 H Creatinine 0.3 L Glucose 137 H POC Glucose 162 H Lactic Acid Calcium 10.5 H Magnesium AST ALT Total Creatine Kinase C-Reactive Protein Total Protein Albumin Urine WBC (Auto) Vancomycin Trough Salicylates Acetaminophen 10/19/18 10/19/18 10/19/18 12:07 16:51 23:17 WBC RBC Hgb Hct RDW Lymph % (Auto) [place] % (Auto) [place] # Seg Neutrophils % Seg Neuts % (Manual) Lymphocytes % (Manual) Seg Neutrophils # Seg Neutrophils # Man Lymphocytes # (Manual) Monocytes # (Manual) PT INR APTT POC ABG pH ABG pH POC ABG pCO2 POC ABG pO2 ABG pO2 ABG HCO3 ABG O2 Saturation ABG Base Excess ABG Hemoglobin Oxyhemoglobin Sodium Chloride Carbon Dioxide BUN Creatinine Glucose POC Glucose 183 H 189 H 179 H Lactic Acid Calcium Magnesium AST ALT Total Creatine Kinase C-Reactive Protein Total Protein Albumin Urine WBC (Auto) Vancomycin Trough Salicylates Acetaminophen 10/20/18 10/20/18 05:21 12:20 WBC RBC Hgb Hct RDW Lymph % (Auto) [place] % (Auto) [place] # Seg Neutrophils % Seg Neuts % (Manual) Lymphocytes % (Manual) Seg Neutrophils # Seg Neutrophils # Man Lymphocytes # (Manual) Monocytes # (Manual) PT INR APTT POC ABG pH ABG pH POC ABG pCO2 POC ABG pO2 ABG pO2 ABG HCO3 ABG O2 Saturation ABG Base Excess ABG Hemoglobin Oxyhemoglobin Sodium Chloride Carbon Dioxide BUN Creatinine Glucose POC Glucose 142 H 155 H Lactic Acid Calcium Magnesium AST ALT Total Creatine Kinase C-Reactive Protein Total Protein Albumin Urine WBC (Auto) Vancomycin Trough Salicylates Acetaminophen Allied health notes reviewed: RT
[2018-10-20] MEDS: SODIUM CHLORIDE FLUSH SYRINGE 10 ML IV SCH ×2 (14:26→21:48)
--- NOTE | 2018-10-20 16:42 | Progress Note ---
Assessment and Plan Assessment and plan: Sepsis. Patient off pressors. Continue antibiotics per infectious disease. Left lower lobe pneumonia. Continue antibiotics per ID recommendation Left lung collapse; Dr. Jacobo did broch, CXR after bronchoscopy showed improvement Anoxic brain injury. EEG per Neurology shows no epileptiform abnormalities, focal or lateralizing features, or significant interhemispheric findings.. MRI findings consistent with anoxic brain injury. Keppra started per neurology twice a day for seizure prophylaxis. Cont. Provigil Dr. Sr consulted and had a long discussion about the prognosis. CT head sh owed cytotoxic edema, severe anoxic brain injury. Cardiopulmonary arrest. Echo revealed EF 60-65%, mild LVH, impaired relaxation, mild TR, mild pulm HTN RVSP 48mmHg, small pericardial effusion, left pleural effusion. Continue supportive care. S/P ACLS protocol initiation with return of cardiac rhythm Acute hypoxemic respiratory failure. Continue mechanical ventilation per pulmonary. Cont. SBT. Patient will need consideration for trach and PEG discussions on Tuesday. Paroxysmal atrial fibrillation. Per cardiology recommendations. Hypertension. Continue antihypertensive medications as needed. Elevated LFTs. Etiology likely secondary to sepsis/shock/ischemic hepatitis. POLLY. Per pulmonary. Overall poor prognosis with minimal chance for neurological recovery Discharge status; DNR We had a long discussion me, Dr. Jacobo, Dr. Sr, case management, nursing home aide and the patient's nurse with all of the family members and they want her to be DNR and want to discuss with each other to discuss with the next step. But they declined PEG and trach. The high probability of a clinically significant, sudden or life threatening deterioration of the [respiratory, cardiovascular, neurology] system(s) required my full and direct attention, intervention and personal management. The aggregate critical care time was [34] minutes. This time is in addition to time spent performing reported procedures but includes the following: [x] Data Review and interpretation [x] Patient assessment and monitoring of vital signs [x] Documentation [x] Medication orders and management History Interval history: Patient was seen and evaluated this morning, and is intubated and on mechanical ventilation Hospitalist Physical - Physical exam Narrative exam: Patient is intubated on the mechanical ventilation The patient appeared well nourished and normally developed. Vital signs as documented. Head exam is unremarkable. No scleral icterus . Neck is without jugular venous distension, thyromegaly, or carotid bruits. Lungs are clear to auscultation. Cardiac exam reveals regular rate and Rhythm. First and second heart sounds normal. No murmurs, rubs or gallops. Abdominal exam reveals normal bowel sounds, no masses, no organomegaly and no aortic enlargement. Extremities are nonedematous and both femoral and pedal pulses are normal. CASH APPLICATIONS ANALYST: Patient open her eyes. Has some brainstem reflexes. - Constitutional Vitals: Temp Pulse Resp BP Pulse Ox 97.6 F 58 L 14 114/50 100 10/20/18 12:00 10/20/18 15:28 10/20/18 15:00 10/20/18 15:28 10/20/18 15:28 General appearance: Present: no acute distress, other (orally intubated) Results - Labs CBC & Chem 7: 10/19/18 08:41 10/19/18 08:41 Labs: Laboratory Last Values WBC 13.4 K/mm3 (4.5-11.0) H 10/19/18 08:41 RBC 3.27 M/mm3 (3.65-5.03) L 10/19/18 08:41 Hgb 9.5 gm/dl (10.1-14.3) L 10/19/18 08:41 Hct 29.7 % (30.3-42.9) L 10/19/18 08:41 MCV 91 fl (79-97) 10/19/18 08:41 MCH 29 pg (28-32) 10/19/18 08:41 MCHC 32 % (30-34) 10/19/18 08:41 RDW 14.2 % (13.2-15.2) 10/19/18 08:41 Plt Count 306 K/mm3 (140-440) 10/19/18 08:41 Lymph % (Auto) 6.8 % (13.4-35.0) L 10/17/18 04:32 [place] % (Auto) 7.8 % (0.0-7.3) H 10/17/18 04:32 Eos % (Auto) 1.1 % (0.0-4.3) 10/17/18 04:32 Baso % (Auto) 0.1 % (0.0-1.8) 10/17/18 04:32 Lymph # 1.4 K/mm3 (1.2-5.4) 10/17/18 04:32 [place] # 1.5 K/mm3 (0.0-0.8) H 10/17/18 04:32 Eos # 0.2 K/mm3 (0.0-0.4) 10/17/18 04:32 Baso # 0.0 K/mm3 (0.0-0.1) 10/17/18 04:32 Add Manual Diff Complete 10/16/18 05:12 Total Counted 100 10/16/18 05:12 Seg Neutrophils % 84.2 % (40.0-70.0) H 10/17/18 04:32 Seg Neuts % (Manual) 93.0 % (40.0-70.0) H 10/16/18 05:12 1.0 % 10/16/18 05:12 1.0 % (13.4-35.0) L 10/16/18 05:12 Reactive Lymphs % (Man) 0 % 10/16/18 05:12 4.0 % (0.0-7.3) 10/16/18 05:12 0 % (0.0-4.3) 10/16/18 05:12 0 % (0.0-1.8) 10/16/18 05:12 1.0 % 10/16/18 05:12 0 % 10/16/18 05:12 0 % 10/16/18 05:12 0 % 10/16/18 05:12 Nucleated RBC % Not Reportable 10/16/18 05:12 Seg Neutrophils # 16.7 K/mm3 (1.8-7.7) H 10/17/18 04:32 Seg Neutrophils # Man 20.4 K/mm3 (1.8-7.7) H 10/16/18 05:12 Band Neutrophils # 0.2 K/mm3 10/16/18 05:12 0.2 K/mm3 (1.2-5.4) L 10/16/18 05:12 Abs React Lymphs (Man) 0.0 K/mm3 10/16/18 05:12 0.9 K/mm3 (0.0-0.8) H 10/16/18 05:12 0.0 K/mm3 (0.0-0.4) 10/16/18 05:12 0.0 K/mm3 (0.0-0.1) 10/16/18 05:12 0.2 K/mm3 10/16/18 05:12 0.0 K/mm3 10/16/18 05:12 0.0 K/mm3 10/16/18 05:12 Blast Cells # 0.0 K/mm3 10/16/18 05:12 WBC Morphology Not Reportable 10/16/18 05:12 Hypersegmented Neuts Not Reportable 10/16/18 05:12 Hyposegmented Neuts Not Reportable 10/16/18 05:12 Hypogranular Neuts Not Reportable 10/16/18 05:12 Not Reportable 10/16/18 05:12 Not Reportable 10/16/18 05:12 Not Reportable 10/16/18 05:12 Not Reportable 10/16/18 05:12 Not Reportable 10/16/18 05:12 Not Reportable 10/16/18 05:12 Consistent w auto 10/16/18 05:12 Not Reportable 10/16/18 05:12 Plt Clumps, EDTA Not Reportable 10/16/18 05:12 Not Reportable 10/16/18 05:12 Not Reportable 10/16/18 05:12 Not Reportable 10/16/18 05:12 Plt Morphology Comment Not Reportable 10/16/18 05:12 RBC Morphology Not Reportable 10/16/18 05:12 Dimorphic RBCs Not Reportable 10/16/18 05:12 Not Reportable 10/16/18 05:12 Not Reportable 10/16/18 05:12 Not Reportable 10/16/18 05:12 Not Reportable 10/16/18 05:12 Not Reportable 10/16/18 05:12 Not Reportable 10/16/18 05:12 Not Reportable 10/16/18 05:12 Not Reportable 10/16/18 05:12 Not Reportable 10/16/18 05:12 Not Reportable 10/16/18 05:12 Not Reportable 10/16/18 05:12 Rare 10/16/18 05:12 Not Reportable 10/16/18 05:12 Not Reportable 10/16/18 05:12 Not Reportable 10/16/18 05:12 Not Reportable 10/16/18 05:12 Not Reportable 10/16/18 05:12 Not Reportable 10/16/18 05:12 Not Reportable 10/16/18 05:12 Acanthocytes (Spur) Not Reportable 10/16/18 05:12 Rouleaux Not Reportable 10/16/18 05:12 Not Reportable 10/16/18 05:12 Not Reportable 10/16/18 05:12 Not Reportable 10/16/18 05:12 Not Reportable 10/16/18 05:12 Hem Pathologist Commnt No 10/16/18 05:12 PT 16.6 Sec. (12.2-14.9) H 10/09/18 10:50 INR 1.38 (0.87-1.13) H 10/09/18 10:50 APTT 39.4 Sec. (24.2-36.6) H 10/09/18 10:50 POC ABG pH 7.472 (7.35-7.45) H 10/18/18 03:29 ABG pH 7.452 pH Units (7.350-7.450) H 10/16/18 05:05 POC ABG pCO2 43.6 (35-45) 10/18/18 03:29 ABG pCO2 48.7 mm Hg 10/16/18 05:05 POC ABG pO2 97 (80-105) 10/18/18 03:29 ABG pO2 66.6 mm Hg (80.0-90.0) L 10/16/18 05:05 POC ABG HCO3 31.9 (22-26 mml/L) 10/18/18 03:29 ABG HCO3 33.3 mmol/L (20.0-26.0) H 10/16/18 05:05 POC ABG Total CO2 33 (23-27mmol/L) 10/18/18 03:29 POC ABG O2 Sat 98 10/18/18 03:29 ABG O2 Saturation 94.0 % (95.0-99.0) L 10/16/18 05:05 ABG O2 Content 11.4 (0.0-44) 10/16/18 05:05 POC ABG Base Excess 8 ((-2) - (+3)mmol/L) 10/18/18 03:29 ABG Base Excess 8.4 mmol/L (-2.0-3.0) H 10/16/18 05:05 ABG Hemoglobin 8.7 gm/dl (12.0-16.0) L 10/16/18 05:05 ABG Carboxyhemoglobin 1.5 % (0.0-5.0) 10/16/18 05:05 ABG Methemoglobin 0.6 % (0.0-1.5) 10/16/18 05:05 92.1 % (95.0-99.0) L 10/16/18 05:05 40 % 10/18/18 03:29 Sodium 141 mmol/L (137-145) 10/19/18 08:41 Potassium 4.3 mmol/L (3.6-5.0) 10/19/18 08:41 Chloride 100.3 mmol/L (98-107) 10/19/18 08:41 Carbon Dioxide 34 mmol/L (22-30) H 10/19/18 08:41 11 mmol/L 10/19/18 08:41 BUN 18 mg/dL (7-17) H 10/19/18 08:41 0.3 mg/dL (0.7-1.2) L 10/19/18 08:41 Estimated GFR > 60 ml/min 10/19/18 08:41 60 % 10/19/18 08:41 Glucose 137 mg/dL (65-100) H 10/19/18 08:41 POC Glucose 132 (70-105) H 10/20/18 16:40 Lactic Acid 1.90 mmol/L (0.7-2.0) 10/09/18 20:50 Calcium 10.5 mg/dL (8.4-10.2) H 10/19/18 08:41 Magnesium 3.70 mg/dL (1.7-2.3) H 10/09/18 10:50 0.30 mg/dL (0.1-1.2) 10/09/18 10:50 AST 51 units/L (5-40) H 10/09/18 10:50 ALT 67 units/L (7-56) H 10/09/18 10:50 60 units/L (35-129) 10/09/18 10:50 171 units/L (30-135) H 10/09/18 10:50 < 0.010 ng/mL (0.00-0.029) 10/09/18 10:50 2.70 mg/dL (0.00-1.30) H 10/12/18 13:03 5.3 g/dL (6.3-8.2) L 10/09/18 10:50 3.0 g/dL (3.9-5) L 10/09/18 10:50 1.3 % 10/09/18 10:50 Yellow (Yellow) 10/09/18 12:12 Hazy (Clear) 10/09/18 12:12 7.0 (5.0-7.0) 10/09/18 12:12 Ur Specific [place] 1.011 (1.003-1.030) 10/09/18 12:12 100 mg/dl mg/dL (Negative) 10/09/18 12:12 150 mg/dL (Negative) 10/09/18 12:12 Neg mg/dL (Negative) 10/09/18 12:12 Sm (Negative) 10/09/18 12:12 Neg (Negative) 10/09/18 12:12 Neg (Negative) 10/09/18 12:12 < 2.0 mg/dL (<2.0) 10/09/18 12:12 Ur Leukocyte Esterase Neg (Negative) 10/09/18 12:12 8.0 /HPF (0.0-6.0) H 10/09/18 12:12 7.0 /HPF (0.0-6.0) 10/09/18 12:12 Few /HPF 10/09/18 12:12 Vancomycin Trough 4.8 ug/mL (5.0-20.0) L 10/12/18 22:33 Salicylates < 0.3 mg/dL (2.8-20.0) L 10/09/18 10:50 Acetaminophen < 5.0 ug/mL (10.0-30.0) L 10/09/18 10:50 Plasma/Serum Alcohol < 0.01 % (0-0.07) 10/09/18 10:50 Active Medications - Current Medications Current Medications: Generic Name Dose Route Start Last Admin Trade Name Freq PRN Reason Stop Dose Admin Acetaminophen 650 mg 10/19/18 09:00 10/19/18 20:58 Tylenol FEEDTUBE 650 mg Q4H PRN Administration Pain, Mild (1-3) Albuterol 2.5 mg 10/12/18 12:20 Proventil IH Q4HRT PRN Shortness Of Breath Lipase/Protease/Amylase 1 each 10/10/18 10:31 Willow Prajapati 10,500 Unit FEEDTUBE PRN PRN For Clogged Feeding Tube Lipase/Protease/Amylase 1 each 10/20/18 11:20 Willow Prajapati 10,500 Unit FEEDTUBE PRN PRN For Clogged Feeding Tube Apixaban 5 mg 10/09/18 22:00 10/20/18 11:03 Eliquis PO 5 mg BID SAUNDRA Administration Protocol Diltiazem HCl 60 mg 10/10/18 12:00 10/20/18 14:00 Cardizem PO 60 mg Q6HR SAUNDRA Administration Famotidine 20 mg 10/10/18 22:00 10/20/18 11:04 Pepcid PO 20 mg BID SAUNDRA Administration Fentanyl 50 mcg 10/09/18 10:48 10/09/18 14:24 Sublimaze IV 50 mcg Q10MIN PRN Administration ANALGESIA Hydralazine HCl 10 mg 10/16/18 02:07 10/16/18 02:20 Apresoline IV 10 mg Q4H PRN Administration Blood Pressure Hydralazine HCl 25 mg 10/16/18 15:00 10/20/18 11:04 Apresoline PO 25 mg BID SAUNDRA Administration Hydrophilic Ointment 1 applic 10/09/18 10:48 Vaseline Lip Therapy TP Q2HR PRN Dry Lips Fentanyl Citrate 2,000 mcg in 100 mls @ 3.561 mls/hr 10/09/18 11:00 Fentanyl Drip Premix IV TITR SAUNDRA Protocol 1 MCG/KG/HR Propofol 1,000 mg in 100 mls @ 2.025 mls/hr 10/17/18 14:00 10/18/18 10:58 Diprivan 10 Mg/Ml IV 0 mcg/kg/min TITR SAUNDRA 0 mls/hr Titration Protocol 5 MCG/KG/MIN Insulin Human Lispro 0 unit 10/10/18 12:00 10/20/18 13:00 Humalog SUB-Q 2 unit Q6HR SAUDNRA Administration Protocol Levetiracetam 500 mg 10/11/18 10:00 10/20/18 11:03 Keppra PO 500 mg BID SAUNDRA Administration Metoprolol Tartrate 5 mg 10/10/18 09:21 10/18/18 22:52 Lopressor IV 5 mg Q6HR PRN Administration Hypertension Metoprolol Tartrate 50 mg 10/15/18 14:25 10/20/18 11:04 Lopressor PO 50 mg BID SAUNDRA Administration Midazolam HCl 2 mg 10/12/18 12:21 Versed IV Q2H PRN Sedation Modafinil 100 mg 10/14/18 13:10 10/20/18 11:03 Provigil PO 100 mg QAM SAUNDRA Administration Multi-Ingred Cream/Lotion/Oil/Oint 1 applic 10/09/18 10:48 10/20/18 11:03 Artificial Tears Ophth Oint OU 1 applic Q4HR PRN Administration Dry Eye(s) Simple Syrup 15 ml 10/10/18 10:31 Simple Syrup FEEDTUBE PRN PRN Hypoglycemia Simple Syrup 30 ml 10/10/18 10:31 Simple Syrup FEEDTUBE PRN PRN Hypoglycemia Simple Syrup 15 ml 10/20/18 11:20 Simple Syrup FEEDTUBE PRN PRN Hypoglycemia Simple Syrup 30 ml 10/20/18 11:20 Simple Syrup FEEDTUBE PRN PRN Hypoglycemia Sodium Bicarbonate 325 mg 10/10/18 10:31 Sodium Bicarbonate FEEDTUBE PRN PRN For Clogged Feeding Tube Sodium Bicarbonate 325 mg 10/20/18 11:20 Sodium Bicarbonate FEEDTUBE PRN PRN For Clogged Feeding Tube Sodium Chloride 5 ml 10/09/18 10:48 Nacl 0.9% 500 Ml IV DIRECT PRN ARTERIAL SHAREPOINT SPECIALIST Sodium Chloride 10 ml 10/09/18 22:00 10/20/18 14:26 Sodium Chloride Flush Syringe 10 Ml IV 10 ml BID SAUNDRA Administration Sodium Chloride 10 ml 10/09/18 13:07 Sodium Chloride Flush Syringe 10 Ml IV PRN PRN LINE FLUSH Nutrition/Malnutrition Assess - Dietary Evaluation Nutrition/Malnutrition Findings: Nutrition Notes Start: 10/10/18 08:09 Freq: Status: Active Protocol: Document 10/20/18 08:51 LM (Rec: 10/20/18 08:53 LM -[email or web address]) Nutrition Notes Initial or Follow up Reassessment Current Diagnosis Sepsis,Hypertension, Respiratory Failure Other Pertinent Diagnosis Anoxic brain injury Current Diet Vital AF 1.2 at 50 ml/hr Labs/Tests Reviewed Pertinent Medications Reviewed Height 5 ft 2 in Weight 67.5 kg [place] Body Weight (kg) 50.00 BMI 27.2 Weight change and time frame Wt change noted. Subjective/Other Information Pt is at goal rate of 50 ml/hr and tolerating TF. discussed possible trach and PEG. Family member concerned with amount of sugar in TF. Discussed TF selection and concerns with family member. MD requests Sylvester for pt. Percent of energy/protein needs met: 100%/100% Burn Absent Trauma Absent Minimum of two criteria No #1 Nutrition Diagnosis Inadequate oral intake Diagnosis Progress(for reassessment Continues documentation) Is patient on ventilator? Yes Is Patient Ambulatory and/or Out of Bed No REE-([facility]-confined to bed) 0364.592 Calculation Used for Recommendations [facility] Additional Notes Protein: 80-134g (1.2-2 g/kg) Fluid: 1 ml/kcal Nutrition Intervention Change Diet Order: Continue TF Nutrition Support: Vital AF 1.2 at 50 ml/hr Flush 75 ml/hr Kcal 1,440 Protein (gm) 90 Fluid (mL) 973 Add Supplement/Snack (indicate name/kcal Sylvester BID /protein ) Provides kCal: 190 Provides Protein (gm) 5 Goal #1 Meet at least 75% of energy and protein needs Anticipated Discharge Needs: Unable to determine at this time Follow-Up By: 10/27/18 Additional Comments F/U for TF rate/tolerance, Sylvester
--- NOTE | 2018-10-20 19:50 | Progress Note ---
Assessment and Plan Patient is a 68 year old woman with a history of hypertension, atrial fibrillation on anticoagulation, GERD. The patient was found down, and was found to be in cardiac arrest. The approximate time duration of cardiac arrest was approximate 45-50 minutes, prior to return of spontaneous circulation. 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 Plan: 1. Anoxic brain injury: - Currently, the patient displays intact brainstem reflexes, including corneal, pupillary and cough reflexes are intact. Patient withdraws to pain stimulation in all extremities. MRI revealed evidence of anoxic brain injury with cortical riveting. EEG done previously showed generalized slowing. - CT head done 10/17/18 showed compression of third ventricle, increased cerebral edema, and loss of poon-white distinction. - CT brain done on 10/19/12 showed decrease in cerebral edema from previous CT head. - Family meeting took place on 10/17/10, and we discussed at length regarding patient's prognosis, including acute change of left lung atelectasis. Patient's family stated that they would like to make the patient currently DO NOT RESUSCITATE. They also stated that they would like to discuss the possibility further care with hospice team. They stated that they have not yet decided whether or not they would like for the mother to transition to tracheostomy and PEG tube placement. - In discussion with family, I discussed the new findings on CT scan that was done, and how there was improvement in cerebral edema. I discussed at length with the patient's family at bedside regarding the patient's prognosis. It was discussed that the patient is not currently brain- given the patient's current clinical exam as well as findings on EEG. It was further discussed that the patient's prognosis is indeterminate at this time, given the evidence of anoxic brain injury on MRI. It was also mentioned that, with time, the patient may have some element of neurologic recovery, ho wever the extent of which is difficult to predict. I further discussed transitioning to a tracheostomy and a PEG tube for continued care. All questions were answered and concerns were clarified and addressed with family. - Will sign off as I am not covering the neurology service over the weekend. Recommend for neurologist covering weekend to be consulted for further neurologic monitoring and management. -Thank you for allowing me to take part in the care of this patient. Joon Sr MD Neurology Subjective Date of service: 10/20/18 Principal diagnosis: Cardiac arrest with ROSC; Ac hypoxemic resp failure; Ac. encephalopathy Interval history: No acute events overnight. Objective - Exam Narrative Exam: Patient is intubated, comatose. Pupils equal, round, reactive to light, corneal reflexes present, cough reflex intact. Withdraws to pain stimulation in all extremities. Opens eyes spontaneously, however not to verbal stimulus. Reflexes 3+ throughout. - Vital Sign Vital Signs - 12hr 10/20/18 10/20/18 10/20/18 08:00 09:00 10:00 Temperature 97.9 F Pulse Rate 71 66 69 Respiratory 14 20 12 Rate Blood Pressure 140/61 128/53 127/62 O2 Sat by Pulse 100 100 100 Oximetry 10/20/18 10/20/18 10/20/18 11:01 12:00 12:01 Temperature 97.6 F Pulse Rate 71 57 L 62 Respiratory 20 12 Rate Blood Pressure 127/62 112/46 112/46 O2 Sat by Pulse 100 100 100 Oximetry 10/20/18 10/20/18 10/20/18 13:00 14:00 15:00 Temperature Pulse Rate 61 70 57 L Respiratory 12 13 14 Rate Blood Pressure 117/47 136/54 114/50 O2 Sat by Pulse 100 100 100 Oximetry 10/20/18 10/20/18 10/20/18 15:28 16:00 17:00 Temperature 98.6 F Pulse Rate 58 L 59 L 62 Respiratory 13 13 Rate Blood Pressure 114/50 126/52 115/48 O2 Sat by Pulse 100 100 100 Oximetry 10/20/18 10/20/18 10/20/18 18:00 18:52 19:26 Temperature Pulse Rate 71 77 76 Respiratory 13 Rate Blood Pressure 125/46 125/46 129/49 O2 Sat by Pulse 100 99 Oximetry - General Apperance Constitutional: comfortable - EENT EENT: ATNC, PERRL, mucous membranes moist - Respiratory Respiratory: decreased breath sounds - Cardiovascular Cardiovascular: regular rate, normal S1, normal S2 Extremities: no clubbing, cyanosis, no inflammation - Gastrointestinal Gastrointestinal: normoactive bowel sounds, soft, non-tender - Integumentary Integumentary: normal - Laboratory Findings CBC and BMP: 10/19/18 08:41 10/19/18 08:41 Abnormal Lab Findings: Abnormal Labs 0910/09/18 10/09/18 10:14 10:50 10:50 WBC RBC Hgb Hct RDW Lymph % (Auto) Scurry % (Auto) Scurry # Seg Neutrophils % Seg Neuts % (Manual) Lymphocytes % (Manual) Seg Neutrophils # Seg Neutrophils # Man Lymphocytes # (Manual) Monocytes # (Manual) PT 16.6 H INR 1.38 H APTT 39.4 H POC ABG pH ABG pH POC ABG pCO2 POC ABG pO2 ABG pO2 ABG HCO3 ABG O2 Saturation ABG Base Excess ABG Hemoglobin Oxyhemoglobin Sodium Chloride 90.3 L Carbon Dioxide BUN 21 H Creatinine Glucose 315 H POC Glucose 344 H Lactic Acid Calcium Magnesium AST 51 H ALT 67 H Total Creatine Kinase C-Reactive Protein Total Protein 5.3 L Albumin 3.0 L Urine WBC (Auto) Vancomycin Trough Salicylates Acetaminophen 10/09/18 10/09/18 10/09/18 10:50 10:50 10:50 WBC RBC Hgb Hct RDW Lymph % (Auto) Scurry % (Auto) Scurry # Seg Neutrophils % Seg Neuts % (Manual) Lymphocytes % (Manual) Seg Neutrophils # Seg Neutrophils # Man Lymphocytes # (Manual) Monocytes # (Manual) PT INR APTT POC ABG pH ABG pH POC ABG pCO2 POC ABG pO2 ABG pO2 ABG HCO3 ABG O2 Saturation ABG Base Excess ABG Hemoglobin Oxyhemoglobin Sodium Chloride Carbon Dioxide BUN Creatinine Glucose POC Glucose Lactic Acid Calcium Magnesium 3.70 H AST ALT Total Creatine Kinase 171 H C-Reactive Protein Total Protein Albumin Urine WBC (Auto) Vancomycin Trough Salicylates < 0.3 L Acetaminophen < 5.0 L 10/09/18 10/09/18 10/09/18 10:50 10:55 11:38 WBC 31.3 H RBC Hgb Hct RDW 13.0 L Lymph % (Auto) Scurry % (Auto) Scurry # Seg Neutrophils % Seg Neuts % (Manual) 91.5 H Lymphocytes % (Manual) 4.5 L Seg Neutrophils # Seg Neutrophils # Man 28.6 H Lymphocytes # (Manual) Monocytes # (Manual) 1.1 H PT INR APTT POC ABG pH 7.243 L ABG pH POC ABG pCO2 68.0 H POC ABG pO2 389 H ABG pO2 ABG HCO3 ABG O2 Saturation ABG Base Excess ABG Hemoglobin Oxyhemoglobin Sodium Chloride Carbon Dioxide BUN Creatinine Glucose POC Glucose Lactic Acid 9.30 H* Calcium Magnesium AST ALT Total Creatine Kinase C-Reactive Protein Total Protein Albumin Urine WBC (Auto) Vancomycin Trough Salicylates Acetaminophen 10/09/18 10/09/18 10/09/18 12:12 15:28 16:27 WBC RBC Hgb Hct RDW Lymph % (Auto) Scurry % (Auto) Scurry # Seg Neutrophils % Seg Neuts % (Manual) Lymphocytes % (Manual) Seg Neutrophils # Seg Neutrophils # Man Lymphocytes # (Manual) Monocytes # (Manual) PT INR APTT POC ABG pH 7.598 H ABG pH POC ABG pCO2 POC ABG pO2 61 L ABG pO2 ABG HCO3 ABG O2 Saturation ABG Base Excess ABG Hemoglobin Oxyhemoglobin Sodium Chloride Carbon Dioxide BUN Creatinine Glucose POC Glucose 173 H Lactic Acid Calcium Magnesium AST ALT Total Creatine Kinase C-Reactive Protein Total Protein Albumin Urine WBC (Auto) 8.0 H Vancomycin Trough Salicylates Acetaminophen 10/09/18 10/09/18 10/09/18 16:44 16:44 18:38 WBC RBC Hgb Hct RDW Lymph % (Auto) Scurry % (Auto) Scurry # Seg Neutrophils % Seg Neuts % (Manual) Lymphocytes % (Manual) Seg Neutrophils # Seg Neutrophils # Man Lymphocytes # (Manual) Monocytes # (Manual) PT INR APTT POC ABG pH ABG pH POC ABG pCO2 POC ABG pO2 ABG pO2 ABG HCO3 ABG O2 Saturation ABG Base Excess ABG Hemoglobin Oxyhemoglobin Sodium Chloride Carbon Dioxide BUN Creatinine Glucose POC Glucose 177 H Lactic Acid 3.80 H* 3.70 H* Calcium Magnesium AST ALT Total Creatine Kinase C-Reactive Protein Total Protein Albumin Urine WBC (Auto) Vancomycin Trough Salicylates Acetaminophen 10/10/18 10/10/18 10/10/18 00:33 04:24 05:32 WBC RBC Hgb Hct RDW Lymph % (Auto) Scurry % (Auto) Scurry # Seg Neutrophils % Seg Neuts % (Manual) Lymphocytes % (Manual) Seg Neutrophils # Seg Neutrophils # Man Lymphocytes # (Manual) Monocytes # (Manual) PT INR APTT POC ABG pH 7.602 H ABG pH POC ABG pCO2 POC ABG pO2 170 H ABG pO2 ABG HCO3 ABG O2 Saturation ABG Base Excess ABG Hemoglobin Oxyhemoglobin Sodium Chloride Carbon Dioxide BUN Creatinine Glucose POC Glucose 177 H 190 H Lactic Acid Calcium Magnesium AST ALT Total Creatine Kinase C-Reactive Protein Total Protein Albumin Urine WBC (Auto) Vancomycin Trough Salicylates Acetaminophen 10/10/18 10/10/18 10/10/18 07:54 07:54 12:18 WBC 38.6 H RBC Hgb Hct RDW Lymph % (Auto) Scurry % (Auto) Scurry # Seg Neutrophils % Seg Neuts % (Manual) Lymphocytes % (Manual) Seg Neutrophils # Seg Neutrophils # Man Lymphocytes # (Manual) Monocytes # (Manual) PT INR APTT POC ABG pH ABG pH POC ABG pCO2 POC ABG pO2 ABG pO2 ABG HCO3 ABG O2 Saturation ABG Base Excess ABG Hemoglobin Oxyhemoglobin Sodium Chloride Carbon Dioxide BUN 31 H Creatinine Glucose 124 H POC Glucose 151 H Lactic Acid Calcium Magnesium AST ALT Total Creatine Kinase C-Reactive Protein Total Protein Albumin Urine WBC (Auto) Vancomycin Trough Salicylates Acetaminophen 10/10/18 10/10/18 10/11/18 18:17 23:09 03:40 WBC RBC Hgb Hct RDW Lymph % (Auto) Scurry % (Auto) Scurry # Seg Neutrophils % Seg Neuts % (Manual) Lymphocytes % (Manual) Seg Neutrophils # Seg Neutrophils # Man Lymphocytes # (Manual) Monocytes # (Manual) PT INR APTT POC ABG pH ABG pH POC ABG pCO2 POC ABG pO2 ABG pO2 91.1 H ABG HCO3 28.8 H ABG O2 Saturation ABG Base Excess ABG Hemoglobin 7.6 L Oxyhemoglobin Sodium Chloride Carbon Dioxide BUN Creatinine Glucose POC Glucose 132 H 124 H Lactic Acid Calcium Magnesium AST ALT Total Creatine Kinase C-Reactive Protein Total Protein Albumin Urine WBC (Auto) Vancomycin Trough Salicylates Acetaminophen 10/11/18 10/11/18 10/11/18 04:45 04:45 06:50 WBC 25.8 H RBC 3.41 L Hgb Hct RDW Lymph % (Auto) Scurry % (Auto) Scurry # Seg Neutrophils % Seg Neuts % (Manual) 83.0 H Lymphocytes % (Manual) Seg Neutrophils # Seg Neutrophils # Man 21.4 H Lymphocytes # (Manual) Monocytes # (Manual) PT INR APTT POC ABG pH ABG pH POC ABG pCO2 POC ABG pO2 ABG pO2 ABG HCO3 ABG O2 Saturation ABG Base Excess ABG Hemoglobin Oxyhemoglobin Sodium Chloride Carbon Dioxide BUN 26 H Creatinine 0.6 L Glucose 134 H POC Glucose 134 H Lactic Acid Calcium Magnesium AST ALT Total Creatine Kinase C-Reactive Protein Total Protein Albumin Urine WBC (Auto) Vancomycin Trough Salicylates Acetaminophen 10/11/18 10/11/18 10/12/18 13:10 18:08 00:25 WBC RBC Hgb Hct RDW Lymph % (Auto) Scurry % (Auto) Scurry # Seg Neutrophils % Seg Neuts % (Manual) Lymphocytes % (Manual) Seg Neutrophils # Seg Neutrophils # Man Lymphocytes # (Manual) Monocytes # (Manual) PT INR APTT POC ABG pH ABG pH POC ABG pCO2 POC ABG pO2 ABG pO2 ABG HCO3 ABG O2 Saturation ABG Base Excess ABG Hemoglobin Oxyhemoglobin Sodium Chloride Carbon Dioxide BUN Creatinine Glucose POC Glucose 160 H 166 H 136 H Lactic Acid Calcium Magnesium AST ALT Total Creatine Kinase C-Reactive Protein Total Protein Albumin Urine WBC (Auto) Vancomycin Trough Salicylates Acetaminophen 10/12/18 10/12/18 10/12/18 03:56 04:17 04:17 WBC 19.2 H RBC 3.04 L Hgb 8.9 L Hct 27.2 L RDW Lymph % (Auto) 8.5 L Scurry % (Auto) Scurry # 1.4 H Seg Neutrophils % 84.2 H Seg Neuts % (Manual) Lymphocytes % (Manual) Seg Neutrophils # 16.2 H Seg Neutrophils # Man Lymphocytes # (Manual) Monocytes # (Manual) PT INR APTT POC ABG pH ABG pH POC ABG pCO2 POC ABG pO2 ABG pO2 77.9 L ABG HCO3 29.4 H ABG O2 Saturation ABG Base Excess 4.4 H ABG Hemoglobin 10.2 L Oxyhemoglobin 94.7 L Sodium Chloride Carbon Dioxide BUN Creatinine 0.5 L Glucose 139 H POC Glucose Lactic Acid Calcium Magnesium AST ALT Total Creatine Kinase C-Reactive Protein Total Protein Albumin Urine WBC (Auto) Vancomycin Trough Salicylates Acetaminophen 10/12/18 10/12/18 10/12/18 05:51 11:46 13:03 WBC RBC Hgb Hct RDW Lymph % (Auto) Scurry % (Auto) Scurry # Seg Neutrophils % Seg Neuts % (Manual) Lymphocytes % (Manual) Seg Neutrophils # Seg Neutrophils # Man Lymphocytes # (Manual) Monocytes # (Manual) PT INR APTT POC ABG pH ABG pH POC ABG pCO2 POC ABG pO2 ABG pO2 ABG HCO3 ABG O2 Saturation ABG Base Excess ABG Hemoglobin Oxyhemoglobin Sodium Chloride Carbon Dioxide BUN Creatinine Glucose POC Glucose 163 H 162 H Lactic Acid Calcium Magnesium AST ALT Total Creatine Kinase C-Reactive Protein 2.70 H Total Protein Albumin Urine WBC (Auto) Vancomycin Trough Salicylates Acetaminophen 10/12/18 10/12/18 10/12/18 17:44 22:33 23:54 WBC RBC Hgb Hct RDW Lymph % (Auto) Scurry % (Auto) Scurry # Seg Neutrophils % Seg Neuts % (Manual) Lymphocytes % (Manual) Seg Neutrophils # Seg Neutrophils # Man Lymphocytes # (Manual) Monocytes # (Manual) PT INR APTT POC ABG pH ABG pH POC ABG pCO2 POC ABG pO2 ABG pO2 ABG HCO3 ABG O2 Saturation ABG Base Excess ABG Hemoglobin Oxyhemoglobin Sodium Chloride Carbon Dioxide BUN Creatinine Glucose POC Glucose 143 H 180 H Lactic Acid Calcium Magnesium AST ALT Total Creatine Kinase C-Reactive Protein Total Protein Albumin Urine WBC (Auto) Vancomycin Trough 4.8 L Salicylates Acetaminophen 10/13/18 10/13/18 10/13/18 02:30 02:30 03:10 WBC 19.8 H RBC 3.12 L Hgb 9.2 L Hct 28.2 L RDW Lymph % (Auto) 8.1 L Scurry % (Auto) 8.0 H Scurry # 1.6 H Seg Neutrophils % 83.2 H Seg Neuts % (Manual) Lymphocytes % (Manual) Seg Neutrophils # 16.5 H Seg Neutrophils # Man Lymphocytes # (Manual) Monocytes # (Manual) PT INR APTT POC ABG pH ABG pH POC ABG pCO2 POC ABG pO2 ABG pO2 ABG HCO3 32.9 H ABG O2 Saturation ABG Base Excess 7.2 H ABG Hemoglobin 10.8 L Oxyhemoglobin Sodium Chloride Carbon Dioxide BUN Creatinine 0.3 L Glucose 139 H POC Glucose Lactic Acid Calcium Magnesium AST ALT Total Creatine Kinase C-Reactive Protein Total Protein Albumin Urine WBC (Auto) Vancomycin Trough Salicylates Acetaminophen 10/13/18 10/13/18 10/13/18 05:17 11:52 17:18 WBC RBC Hgb Hct RDW Lymph % (Auto) Scurry % (Auto) Scurry # Seg Neutrophils % Seg Neuts % (Manual) Lymphocytes % (Manual) Seg Neutrophils # Seg Neutrophils # Man Lymphocytes # (Manual) Monocytes # (Manual) PT INR APTT POC ABG pH ABG pH POC ABG pCO2 56.7 H POC ABG pO2 63 L ABG pO2 ABG HCO3 ABG O2 Saturation ABG Base Excess ABG Hemoglobin Oxyhemoglobin Sodium Chloride Carbon Dioxide BUN Creatinine Glucose POC Glucose 192 H 200 H Lactic Acid Calcium Magnesium AST ALT Total Creatine Kinase C-Reactive Protein Total Protein Albumin Urine WBC (Auto) Vancomycin Trough Salicylates Acetaminophen 10/13/18 10/14/18 10/14/18 17:53 00:00 03:55 WBC RBC Hgb Hct RDW Lymph % (Auto) Scurry % (Auto) Scurry # Seg Neutrophils % Seg Neuts % (Manual) Lymphocytes % (Manual) Seg Neutrophils # Seg Neutrophils # Man Lymphocytes # (Manual) Monocytes # (Manual) PT INR APTT POC ABG pH ABG pH POC ABG pCO2 POC ABG pO2 ABG pO2 ABG HCO3 34.1 H ABG O2 Saturation ABG Base Excess 8.4 H ABG Hemoglobin 10.6 L Oxyhemoglobin 94.8 L Sodium Chloride Carbon Dioxide BUN Creatinine Glucose POC Glucose 215 H 236 H Lactic Acid Calcium Magnesium AST ALT Total Creatine Kinase C-Reactive Protein Total Protein Albumin Urine WBC (Auto) Vancomycin Trough Salicylates Acetaminophen 10/14/18 10/14/18 10/14/18 05:00 08:05 08:05 WBC 16.8 H RBC 3.27 L Hgb 9.8 L Hct 29.7 L RDW 13.1 L Lymph % (Auto) 7.5 L Scurry % (Auto) 8.6 H Scurry # 1.4 H Seg Neutrophils % 82.4 H Seg Neuts % (Manual) Lymphocytes % (Manual) Seg Neutrophils # 13.8 H Seg Neutrophils # Man Lymphocytes # (Manual) Monocytes # (Manual) PT INR APTT POC ABG pH ABG pH POC ABG pCO2 POC ABG pO2 ABG pO2 ABG HCO3 ABG O2 Saturation ABG Base Excess ABG Hemoglobin Oxyhemoglobin Sodium Chloride Carbon Dioxide 33 H BUN Creatinine 0.3 L Glucose 140 H POC Glucose 170 H Lactic Acid Calcium Magnesium AST ALT Total Creatine Kinase C-Reactive Protein Total Protein Albumin Urine WBC (Auto) Vancomycin Trough Salicylates Acetaminophen 10/14/18 10/14/18 10/14/18 12:04 14:06 18:04 WBC RBC Hgb Hct RDW Lymph % (Auto) Scurry % (Auto) Scurry # Seg Neutrophils % Seg Neuts % (Manual) Lymphocytes % (Manual) Seg Neutrophils # Seg Neutrophils # Man Lymphocytes # (Manual) Monocytes # (Manual) PT INR APTT POC ABG pH 7.330 L ABG pH POC ABG pCO2 67.6 H POC ABG pO2 75 L ABG pO2 ABG HCO3 ABG O2 Saturation ABG Base Excess ABG Hemoglobin Oxyhemoglobin Sodium Chloride Carbon Dioxide BUN Creatinine Glucose POC Glucose 202 H 189 H Lactic Acid Calcium Magnesium AST ALT Total Creatine Kinase C-Reactive Protein Total Protein Albumin Urine WBC (Auto) Vancomycin Trough Salicylates Acetaminophen 10/14/18 10/15/18 10/15/18 23:16 04:58 05:03 WBC 18.0 H RBC 3.36 L Hgb Hct RDW Lymph % (Auto) 7.5 L Scurry % (Auto) Scurry # 1.3 H Seg Neutrophils % 83.2 H Seg Neuts % (Manual) Lymphocytes % (Manual) Seg Neutrophils # 15.0 H Seg Neutrophils # Man Lymphocytes # (Manual) Monocytes # (Manual) PT INR APTT POC ABG pH ABG pH POC ABG pCO2 54.9 H POC ABG pO2 72 L ABG pO2 ABG HCO3 ABG O2 Saturation ABG Base Excess ABG Hemoglobin Oxyhemoglobin Sodium Chloride Carbon Dioxide BUN Creatinine Glucose POC Glucose 187 H Lactic Acid Calcium Magnesium AST ALT Total Creatine Kinase C-Reactive Protein Total Protein Albumin Urine WBC (Auto) Vancomycin Trough Salicylates Acetaminophen 10/15/18 10/15/18 10/15/18 05:03 05:54 11:53 WBC RBC Hgb Hct RDW Lymph % (Auto) Scurry % (Auto) Scurry # Seg Neutrophils % Seg Neuts % (Manual) Lymphocytes % (Manual) Seg Neutrophils # Seg Neutrophils # Man Lymphocytes # (Manual) Monocytes # (Manual) PT INR APTT POC ABG pH ABG pH POC ABG pCO2 POC ABG pO2 ABG pO2 ABG HCO3 ABG O2 Saturation ABG Base Excess ABG Hemoglobin Oxyhemoglobin Sodium Chloride Carbon Dioxide 33 H BUN 19 H Creatinine 0.3 L Glucose 161 H POC Glucose 191 H 188 H Lactic Acid Calcium Magnesium AST ALT Total Creatine Kinase C-Reactive Protein Total Protein Albumin Urine WBC (Auto) Vancomycin Trough Salicylates Acetaminophen 10/15/18 10/15/18 10/16/18 17:30 23:15 05:05 WBC RBC Hgb Hct RDW Lymph % (Auto) Scurry % (Auto) Scurry # Seg Neutrophils % Seg Neuts % (Manual) Lymphocytes % (Manual) Seg Neutrophils # Seg Neutrophils # Man Lymphocytes # (Manual) Monocytes # (Manual) PT INR APTT POC ABG pH ABG pH 7.452 H POC ABG pCO2 POC ABG pO2 ABG pO2 66.6 L ABG HCO3 33.3 H ABG O2 Saturation 94.0 L ABG Base Excess 8.4 H ABG Hemoglobin 8.7 L Oxyhemoglobin 92.1 L Sodium Chloride Carbon Dioxide BUN Creatinine Glucose POC Glucose 178 H 177 H Lactic Acid Calcium Magnesium AST ALT Total Creatine Kinase C-Reactive Protein Total Protein Albumin Urine WBC (Auto) Vancomycin Trough Salicylates Acetaminophen 10/16/18 10/16/18 10/16/18 05:12 05:12 05:49 WBC 21.9 H RBC 3.62 L Hgb Hct RDW Lymph % (Auto) Scurry % (Auto) Scurry # Seg Neutrophils % Seg Neuts % (Manual) 93.0 H Lymphocytes % (Manual) 1.0 L Seg Neutrophils # Seg Neutrophils # Man 20.4 H Lymphocytes # (Manual) 0.2 L Monocytes # (Manual) 0.9 H PT INR APTT POC ABG pH ABG pH POC ABG pCO2 POC ABG pO2 ABG pO2 ABG HCO3 ABG O2 Saturation ABG Base Excess ABG Hemoglobin Oxyhemoglobin Sodium 136 L Chloride 96.3 L Carbon Dioxide 34 H BUN 20 H Creatinine 0.3 L Glucose 183 H POC Glucose 187 H Lactic Acid Calcium Magnesium AST ALT Total Creatine Kinase C-Reactive Protein Total Protein Albumin Urine WBC (Auto) Vancomycin Trough Salicylates Acetaminophen 10/16/18 10/16/18 10/16/18 11:25 17:41 23:08 WBC RBC Hgb Hct RDW Lymph % (Auto) Scurry % (Auto) Scurry # Seg Neutrophils % Seg Neuts % (Manual) Lymphocytes % (Manual) Seg Neutrophils # Seg Neutrophils # Man Lymphocytes # (Manual) Monocytes # (Manual) PT INR APTT POC ABG pH ABG pH POC ABG pCO2 POC ABG pO2 ABG pO2 ABG HCO3 ABG O2 Saturation ABG Base Excess ABG Hemoglobin Oxyhemoglobin Sodium Chloride Carbon Dioxide BUN Creatinine Glucose POC Glucose 200 H 184 H 166 H Lactic Acid Calcium Magnesium AST ALT Total Creatine Kinase C-Reactive Protein Total Protein Albumin Urine WBC (Auto) Vancomycin Trough Salicylates Acetaminophen 10/17/18 10/17/18 10/17/18 04:32 04:32 05:12 WBC 19.9 H RBC 3.53 L Hgb Hct RDW Lymph % (Auto) 6.8 L Scurry % (Auto) 7.8 H Scurry # 1.5 H Seg Neutrophils % 84.2 H Seg Neuts % (Manual) Lymphocytes % (Manual) Seg Neutrophils # 16.7 H Seg Neutrophils # Man Lymphocytes # (Manual) Monocytes # (Manual) PT INR APTT POC ABG pH ABG pH POC ABG pCO2 POC ABG pO2 ABG pO2 ABG HCO3 ABG O2 Saturation ABG Base Excess ABG Hemoglobin Oxyhemoglobin Sodium Chloride Carbon Dioxide 32 H BUN 20 H Creatinine 0.3 L Glucose 155 H POC Glucose 164 H Lactic Acid Calcium Magnesium AST ALT Total Creatine Kinase C-Reactive Protein Total Protein Albumin Urine WBC (Auto) Vancomycin Trough Salicylates Acetaminophen 10/17/18 10/17/18 10/17/18 12:24 13:21 18:03 WBC RBC Hgb Hct RDW Lymph % (Auto) Scurry % (Auto) Scurry # Seg Neutrophils % Seg Neuts % (Manual) Lymphocytes % (Manual) Seg Neutrophils # Seg Neutrophils # Man Lymphocytes # (Manual) Monocytes # (Manual) PT INR APTT POC ABG pH 7.337 L ABG pH POC ABG pCO2 68.3 H POC ABG pO2 79 L ABG pO2 ABG HCO3 ABG O2 Saturation ABG Base Excess ABG Hemoglobin Oxyhemoglobin Sodium Chloride Carbon Dioxide BUN Creatinine Glucose POC Glucose 169 H 139 H Lactic Acid Calcium Magnesium AST ALT Total Creatine Kinase C-Reactive Protein Total Protein Albumin Urine WBC (Auto) Vancomycin Trough Salicylates Acetaminophen 10/17/18 10/18/18 10/18/18 23:13 03:29 05:33 WBC RBC Hgb Hct RDW Lymph % (Auto) Scurry % (Auto) Scurry # Seg Neutrophils % Seg Neuts % (Manual) Lymphocytes % (Manual) Seg Neutrophils # Seg Neutrophils # Man Lymphocytes # (Manual) Monocytes # (Manual) PT INR APTT POC ABG pH 7.472 H ABG pH POC ABG pCO2 POC ABG pO2 ABG pO2 ABG HCO3 ABG O2 Saturation ABG Base Excess ABG Hemoglobin Oxyhemoglobin Sodium Chloride Carbon Dioxide BUN Creatinine Glucose POC Glucose 170 H 151 H Lactic Acid Calcium Magnesium AST ALT Total Creatine Kinase C-Reactive Protein Total Protein Albumin Urine WBC (Auto) Vancomycin Trough Salicylates Acetaminophen 09/12/2610/18/18 10/18/18 11:37 18:06 23:23 WBC RBC Hgb Hct RDW Lymph % (Auto) Scurry % (Auto) Scurry # Seg Neutrophils % Seg Neuts % (Manual) Lymphocytes % (Manual) Seg Neutrophils # Seg Neutrophils # Man Lymphocytes # (Manual) Monocytes # (Manual) PT INR APTT POC ABG pH ABG pH POC ABG pCO2 POC ABG pO2 ABG pO2 ABG HCO3 ABG O2 Saturation ABG Base Excess ABG Hemoglobin Oxyhemoglobin Sodium Chloride Carbon Dioxide BUN Creatinine Glucose POC Glucose 170 H 165 H 153 H Lactic Acid Calcium Magnesium AST ALT Total Creatine Kinase C-Reactive Protein Total Protein Albumin Urine WBC (Auto) Vancomycin Trough Salicylates Acetaminophen 10/19/18 10/19/18 10/19/18 05:39 08:41 08:41 WBC 13.4 H RBC 3.27 L Hgb 9.5 L Hct 29.7 L RDW Lymph % (Auto) Scurry % (Auto) Scurry # Seg Neutrophils % Seg Neuts % (Manual) Lymphocytes % (Manual) Seg Neutrophils # Seg Neutrophils # Man Lymphocytes # (Manual) Monocytes # (Manual) PT INR APTT POC ABG pH ABG pH POC ABG pCO2 POC ABG pO2 ABG pO2 ABG HCO3 ABG O2 Saturation ABG Base Excess ABG Hemoglobin Oxyhemoglobin Sodium Chloride Carbon Dioxide 34 H BUN 18 H Creatinine 0.3 L Glucose 137 H POC Glucose 162 H Lactic Acid Calcium 10.5 H Magnesium AST ALT Total Creatine Kinase C-Reactive Protein Total Protein Albumin Urine WBC (Auto) Vancomycin Trough Salicylates Acetaminophen 10/19/18 10/19/18 10/19/18 12:07 16:51 23:17 WBC RBC Hgb Hct RDW Lymph % (Auto) Scurry % (Auto) Scurry # Seg Neutrophils % Seg Neuts % (Manual) Lymphocytes % (Manual) Seg Neutrophils # Seg Neutrophils # Man Lymphocytes # (Manual) Monocytes # (Manual) PT INR APTT POC ABG pH ABG pH POC ABG pCO2 POC ABG pO2 ABG pO2 ABG HCO3 ABG O2 Saturation ABG Base Excess ABG Hemoglobin Oxyhemoglobin Sodium Chloride Carbon Dioxide BUN Creatinine Glucose POC Glucose 183 H 189 H 179 H Lactic Acid Calcium Magnesium AST ALT Total Creatine Kinase C-Reactive Protein Total Protein Albumin Urine WBC (Auto) Vancomycin Trough Salicylates Acetaminophen 10/20/18 10/20/18 10/20/18 05:21 12:20 16:40 WBC RBC Hgb Hct RDW Lymph % (Auto) Scurry % (Auto) Scurry # Seg Neutrophils % Seg Neuts % (Manual) Lymphocytes % (Manual) Seg Neutrophils # Seg Neutrophils # Man Lymphocytes # (Manual) Monocytes # (Manual) PT INR APTT POC ABG pH ABG pH POC ABG pCO2 POC ABG pO2 ABG pO2 ABG HCO3 ABG O2 Saturation ABG Base Excess ABG Hemoglobin Oxyhemoglobin Sodium Chloride Carbon Dioxide BUN Creatinine Glucose POC Glucose 142 H 155 H 132 H Lactic Acid Calcium Magnesium AST ALT Total Creatine Kinase C-Reactive Protein Total Protein Albumin Urine WBC (Auto) Vancomycin Trough Salicylates Acetaminophen
[2018-10-21 05:29] LABS: Basophils % (Auto) 0.3 % (0.0-1.8); Eosinophils # (Auto) 0.2 K/mm3 (0.0-0.4); Hematocrit 28.7 % (30.3-42.9); Hemoglobin 9.5 gm/dl (10.1-14.3); Lymphocytes # (Auto) 1.4 K/mm3 (1.2-5.4); Lymphocytes % (Auto) 12.2 % (13.4-35.0); Mean Corpuscular HGB Conc 33 % (30-34); Mean Corpuscular Volume 90 fl (79-97); Monocytes # (Auto) 0.8 K/mm3 (0.0-0.8); Monocytes % (Auto) 6.9 % (0.0-7.3); Platelet Count 343 K/mm3 (140-440); Red Blood Count 3.19 M/mm3 (3.65-5.03); Red Cell Distribution Width 14.4 % (13.2-15.2)
[2018-10-21 06:00] LABS: BUN/Creatinine Ratio 47; Blood Urea Nitrogen 14 mg/dL (7-17); Calcium 10.8 mg/dL (8.4-10.2); Hemolysis Index 3
[2018-10-21] MEDS: CARDIZEM PO SCH ×3 (06:07→18:39)
[2018-10-21] MEDS: HumaLOG SUB-Q SCH ×3 (06:09→18:38)
--- NOTE | 2018-10-21 08:30 | Progress Note ---
Assessment and Plan s/p cardiopulmonary arrest-OOH with ROSC Acute hyoxemic respiratory failure on MVS Acute hypercapnic respiratory failure Acute encephalopathy- metabolic Sepsis Aspiration pneumonia LLL Left pleural effusion Myoclonic jerks, post arrest Atrial fibrillation with RVR -VAP bundle addressed -Supplemental O2 to keep O2 sats >92 -ABG and CXR prn -AEDs on Keppra -VTE prophylaxis, anticoagulated -Stress ulcer prophylaxis -Continue OGT for nutrition and oral medications - Continue tube feeding for nutritional support; accucheck with glycemic control, target blood glucose 140-180mg/dL -Antibiotics for aspiration pneumonia--MRSA and GNR coverage, patient has been in the hospital multiple times in the last 90days -Aspiration precautions, HOB >40 -Chronic home medications -Supportive care -Mobility for pressure ulcer prevention -Critical care bundles addressed -Seizure precautions Continue all current care. Await family meeting for further direction re care plan CONDITION: CRITICAL PROGNOSIS: GUARDED TO GRAVE CODE STATUS: DNAR Subjective Date of service: 10/21/18 Principal diagnosis: Cardiac arrest with ROSC; Ac hypoxemic resp failure; Ac. encephalopathy Interval history: Follow up for: OOH cardiac arrest with ROSC; acute hypoxic-hypercapnic respiratory failure; myoclonic jerks; acute metabolic encephalopathy Seen and examined. 24 hour events reviewed. Vitals, labs, medications, chart and imaging reviewed. No new events. Remains on MVS, no fevers, accucheck within acceptable range No vomiting, tolerating tube feeding, mental status changes persist Objective Vital Signs - 12hr 10/20/18 10/20/18 10/20/18 21:00 21:46 21:47 Temperature Pulse Rate 78 82 85 Respiratory 13 Rate Blood Pressure 140/53 140/53 140/53 O2 Sat by Pulse 96 Oximetry 10/20/18 10/20/18 10/20/18 22:00 23:00 23:05 Temperature Pulse Rate 83 66 66 Respiratory 20 13 12 Rate Blood Pressure 146/61 123/52 123/52 O2 Sat by Pulse 96 98 100 Oximetry 10/20/18 10/20/18 10/21/18 23:21 23:57 00:00 Temperature 98.3 F Pulse Rate 71 69 Respiratory 21 Rate Blood Pressure 152/52 134/57 O2 Sat by Pulse 100 Oximetry 10/21/18 10/21/18 10/21/18 00:15 01:00 02:00 Temperature Pulse Rate 68 67 70 Respiratory 25 H 12 Rate Blood Pressure 134/57 133/56 128/56 O2 Sat by Pulse 100 100 99 Oximetry 10/21/18 10/21/18 10/21/18 03:00 03:26 04:00 Temperature 98.3 F Pulse Rate 72 115 H Respiratory 13 Rate Blood Pressure 133/59 O2 Sat by Pulse 98 Oximetry 10/21/18 10/21/18 10/21/18 04:01 04:19 05:00 Temperature Pulse Rate 73 71 68 Respiratory 15 12 Rate Blood Pressure 137/52 137/52 124/47 O2 Sat by Pulse 99 100 100 Oximetry 10/21/18 10/21/18 10/21/18 06:00 06:07 07:53 Temperature Pulse Rate 75 81 72 Respiratory 12 Rate Blood Pressure 129/53 129/53 131/55 O2 Sat by Pulse 100 99 Oximetry Constitutional: no acute distress Eyes: non-icteric ENT: oropharynx moist, other (ETT approx 23cm SUELLEN) Neck: supple, no lymphadenopathy, no JVD Effort: normal Ascultation: Bilateral: diminished breath sounds, rhonchi Percussion: Bilateral: not dull Cardiovascular: regular rate and rhythm, other (S1,S2) Gastrointestinal: normoactive bowel sounds, soft, non-tender Integumentary: normal Extremities: no cyanosis, no edema, pink and warm, pulses normal Neurologic: unable to assess, other (posturing to painful stimuli, Pupils are minimally reactive) Psychiatric: other (unable to assess) CBC and BMP: 10/21/18 04:11 10/21/18 04:11 ABG, PT/INR, D-dimer: ABG POC ABG pH 7.472 (7.35-7.45) H 10/18/18 03:29 ABG pH 7.452 pH Units (7.350-7.450) H 10/16/18 05:05 POC ABG pCO2 43.6 (35-45) 10/18/18 03:29 ABG pCO2 48.7 mm Hg 10/16/18 05:05 POC ABG pO2 97 (80-105) 10/18/18 03:29 ABG pO2 66.6 mm Hg (80.0-90.0) L 10/16/18 05:05 POC ABG HCO3 31.9 (22-26 mml/L) 10/18/18 03:29 POC ABG Total CO2 33 (23-27mmol/L) 10/18/18 03:29 POC ABG O2 Sat 98 10/18/18 03:29 ABG O2 Saturation 94.0 % (95.0-99.0) L 10/16/18 05:05 PT/INR, D-dimer PT 16.6 Sec. (12.2-14.9) H 10/09/18 10:50 INR 1.38 (0.87-1.13) H 10/09/18 10:50 Abnormal lab findings: Abnormal Labs 10/09/18 10/09/18 10/09/18 10:14 10:50 10:50 WBC RBC Hgb Hct RDW Lymph % (Auto) [place] % (Auto) [place] # Seg Neutrophils % Seg Neuts % (Manual) Lymphocytes % (Manual) Seg Neutrophils # Seg Neutrophils # Man Lymphocytes # (Manual) Monocytes # (Manual) PT 16.6 H INR 1.38 H APTT 39.4 H POC ABG pH ABG pH POC ABG pCO2 POC ABG pO2 ABG pO2 ABG HCO3 ABG O2 Saturation ABG Base Excess ABG Hemoglobin Oxyhemoglobin Sodium Chloride 90.3 L Carbon Dioxide BUN 21 H Creatinine Glucose 315 H POC Glucose 344 H Lactic Acid Calcium Magnesium AST 51 H ALT 67 H Total Creatine Kinase C-Reactive Protein Total Protein 5.3 L Albumin 3.0 L Urine WBC (Auto) Vancomycin Trough Salicylates Acetaminophen 10/09/18 10/09/18 10/09/18 10:50 10:50 10:50 WBC RBC Hgb Hct RDW Lymph % (Auto) [place] % (Auto) [place] # Seg Neutrophils % Seg Neuts % (Manual) Lymphocytes % (Manual) Seg Neutrophils # Seg Neutrophils # Man Lymphocytes # (Manual) Monocytes # (Manual) PT INR APTT POC ABG pH ABG pH POC ABG pCO2 POC ABG pO2 ABG pO2 ABG HCO3 ABG O2 Saturation ABG Base Excess ABG Hemoglobin Oxyhemoglobin Sodium Chloride Carbon Dioxide BUN Creatinine Glucose POC Glucose Lactic Acid Calcium Magnesium 3.70 H AST ALT Total Creatine Kinase 171 H C-Reactive Protein Total Protein Albumin Urine WBC (Auto) Vancomycin Trough Salicylates < 0.3 L Acetaminophen < 5.0 L 10/09/18 10/09/18 10/09/18 10:50 10:55 11:38 WBC 31.3 H RBC Hgb Hct RDW 13.0 L Lymph % (Auto) [place] % (Auto) [place] # Seg Neutrophils % Seg Neuts % (Manual) 91.5 H Lymphocytes % (Manual) 4.5 L Seg Neutrophils # Seg Neutrophils # Man 28.6 H Lymphocytes # (Manual) Monocytes # (Manual) 1.1 H PT INR APTT POC ABG pH 7.243 L ABG pH POC ABG pCO2 68.0 H POC ABG pO2 389 H ABG pO2 ABG HCO3 ABG O2 Saturation ABG Base Excess ABG Hemoglobin Oxyhemoglobin Sodium Chloride Carbon Dioxide BUN Creatinine Glucose POC Glucose Lactic Acid 9.30 H* Calcium Magnesium AST ALT Total Creatine Kinase C-Reactive Protein Total Protein Albumin Urine WBC (Auto) Vancomycin Trough Salicylates Acetaminophen 10/09/18 10/09/18 10/09/18 12:12 15:28 16:27 WBC RBC Hgb Hct RDW Lymph % (Auto) [place] % (Auto) [place] # Seg Neutrophils % Seg Neuts % (Manual) Lymphocytes % (Manual) Seg Neutrophils # Seg Neutrophils # Man Lymphocytes # (Manual) Monocytes # (Manual) PT INR APTT POC ABG pH 7.598 H ABG pH POC ABG pCO2 POC ABG pO2 61 L ABG pO2 ABG HCO3 ABG O2 Saturation ABG Base Excess ABG Hemoglobin Oxyhemoglobin Sodium Chloride Carbon Dioxide BUN Creatinine Glucose POC Glucose 173 H Lactic Acid Calcium Magnesium AST ALT Total Creatine Kinase C-Reactive Protein Total Protein Albumin Urine WBC (Auto) 8.0 H Vancomycin Trough Salicylates Acetaminophen 10/09/18 10/09/18 10/09/18 16:44 16:44 18:38 WBC RBC Hgb Hct RDW Lymph % (Auto) [place] % (Auto) [place] # Seg Neutrophils % Seg Neuts % (Manual) Lymphocytes % (Manual) Seg Neutrophils # Seg Neutrophils # Man Lymphocytes # (Manual) Monocytes # (Manual) PT INR APTT POC ABG pH ABG pH POC ABG pCO2 POC ABG pO2 ABG pO2 ABG HCO3 ABG O2 Saturation ABG Base Excess ABG Hemoglobin Oxyhemoglobin Sodium Chloride Carbon Dioxide BUN Creatinine Glucose POC Glucose 177 H Lactic Acid 3.80 H* 3.70 H* Calcium Magnesium AST ALT Total Creatine Kinase C-Reactive Protein Total Protein Albumin Urine WBC (Auto) Vancomycin Trough Salicylates Acetaminophen 10/10/18 10/10/18 10/10/18 00:33 04:24 05:32 WBC RBC Hgb Hct RDW Lymph % (Auto) [place] % (Auto) [place] # Seg Neutrophils % Seg Neuts % (Manual) Lymphocytes % (Manual) Seg Neutrophils # Seg Neutrophils # Man Lymphocytes # (Manual) Monocytes # (Manual) PT INR APTT POC ABG pH 7.602 H ABG pH POC ABG pCO2 POC ABG pO2 170 H ABG pO2 ABG HCO3 ABG O2 Saturation ABG Base Excess ABG Hemoglobin Oxyhemoglobin Sodium Chloride Carbon Dioxide BUN Creatinine Glucose POC Glucose 177 H 190 H Lactic Acid Calcium Magnesium AST ALT Total Creatine Kinase C-Reactive Protein Total Protein Albumin Urine WBC (Auto) Vancomycin Trough Salicylates Acetaminophen 10/10/18 10/10/18 10/10/18 07:54 07:54 12:18 WBC 38.6 H RBC Hgb Hct RDW Lymph % (Auto) [place] % (Auto) [place] # Seg Neutrophils % Seg Neuts % (Manual) Lymphocytes % (Manual) Seg Neutrophils # Seg Neutrophils # Man Lymphocytes # (Manual) Monocytes # (Manual) PT INR APTT POC ABG pH ABG pH POC ABG pCO2 POC ABG pO2 ABG pO2 ABG HCO3 ABG O2 Saturation ABG Base Excess ABG Hemoglobin Oxyhemoglobin Sodium Chloride Carbon Dioxide BUN 31 H Creatinine Glucose 124 H POC Glucose 151 H Lactic Acid Calcium Magnesium AST ALT Total Creatine Kinase C-Reactive Protein Total Protein Albumin Urine WBC (Auto) Vancomycin Trough Salicylates Acetaminophen 10/10/18 10/10/18 10/11/18 18:17 23:09 03:40 WBC RBC Hgb Hct RDW Lymph % (Auto) [place] % (Auto) [place] # Seg Neutrophils % Seg Neuts % (Manual) Lymphocytes % (Manual) Seg Neutrophils # Seg Neutrophils # Man Lymphocytes # (Manual) Monocytes # (Manual) PT INR APTT POC ABG pH ABG pH POC ABG pCO2 POC ABG pO2 ABG pO2 91.1 H ABG HCO3 28.8 H ABG O2 Saturation ABG Base Excess ABG Hemoglobin 7.6 L Oxyhemoglobin Sodium Chloride Carbon Dioxide BUN Creatinine Glucose POC Glucose 132 H 124 H Lactic Acid Calcium Magnesium AST ALT Total Creatine Kinase C-Reactive Protein Total Protein Albumin Urine WBC (Auto) Vancomycin Trough Salicylates Acetaminophen 10/11/18 10/11/18 10/11/18 04:45 04:45 06:50 WBC 25.8 H RBC 3.41 L Hgb Hct RDW Lymph % (Auto) [place] % (Auto) [place] # Seg Neutrophils % Seg Neuts % (Manual) 83.0 H Lymphocytes % (Manual) Seg Neutrophils # Seg Neutrophils # Man 21.4 H Lymphocytes # (Manual) Monocytes # (Manual) PT INR APTT POC ABG pH ABG pH POC ABG pCO2 POC ABG pO2 ABG pO2 ABG HCO3 ABG O2 Saturation ABG Base Excess ABG Hemoglobin Oxyhemoglobin Sodium Chloride Carbon Dioxide BUN 26 H Creatinine 0.6 L Glucose 134 H POC Glucose 134 H Lactic Acid Calcium Magnesium AST ALT Total Creatine Kinase C-Reactive Protein Total Protein Albumin Urine WBC (Auto) Vancomycin Trough Salicylates Acetaminophen 10/11/18 10/11/18 10/12/18 13:10 18:08 00:25 WBC RBC Hgb Hct RDW Lymph % (Auto) [place] % (Auto) [place] # Seg Neutrophils % Seg Neuts % (Manual) Lymphocytes % (Manual) Seg Neutrophils # Seg Neutrophils # Man Lymphocytes # (Manual) Monocytes # (Manual) PT INR APTT POC ABG pH ABG pH POC ABG pCO2 POC ABG pO2 ABG pO2 ABG HCO3 ABG O2 Saturation ABG Base Excess ABG Hemoglobin Oxyhemoglobin Sodium Chloride Carbon Dioxide BUN Creatinine Glucose POC Glucose 160 H 166 H 136 H Lactic Acid Calcium Magnesium AST ALT Total Creatine Kinase C-Reactive Protein Total Protein Albumin Urine WBC (Auto) Vancomycin Trough Salicylates Acetaminophen 10/12/18 10/12/18 10/12/18 03:56 04:17 04:17 WBC 19.2 H RBC 3.04 L Hgb 8.9 L Hct 27.2 L RDW Lymph % (Auto) 8.5 L [place] % (Auto) [place] # 1.4 H Seg Neutrophils % 84.2 H Seg Neuts % (Manual) Lymphocytes % (Manual) Seg Neutrophils # 16.2 H Seg Neutrophils # Man Lymphocytes # (Manual) Monocytes # (Manual) PT INR APTT POC ABG pH ABG pH POC ABG pCO2 POC ABG pO2 ABG pO2 77.9 L ABG HCO3 29.4 H ABG O2 Saturation ABG Base Excess 4.4 H ABG Hemoglobin 10.2 L Oxyhemoglobin 94.7 L Sodium Chloride Carbon Dioxide BUN Creatinine 0.5 L Glucose 139 H POC Glucose Lactic Acid Calcium Magnesium AST ALT Total Creatine Kinase C-Reactive Protein Total Protein Albumin Urine WBC (Auto) Vancomycin Trough Salicylates Acetaminophen 10/12/18 10/12/18 10/12/18 05:51 11:46 13:03 WBC RBC Hgb Hct RDW Lymph % (Auto) [place] % (Auto) [place] # Seg Neutrophils % Seg Neuts % (Manual) Lymphocytes % (Manual) Seg Neutrophils # Seg Neutrophils # Man Lymphocytes # (Manual) Monocytes # (Manual) PT INR APTT POC ABG pH ABG pH POC ABG pCO2 POC ABG pO2 ABG pO2 ABG HCO3 ABG O2 Saturation ABG Base Excess ABG Hemoglobin Oxyhemoglobin Sodium Chloride Carbon Dioxide BUN Creatinine Glucose POC Glucose 163 H 162 H Lactic Acid Calcium Magnesium AST ALT Total Creatine Kinase C-Reactive Protein 2.70 H Total Protein Albumin Urine WBC (Auto) Vancomycin Trough Salicylates Acetaminophen 10/12/18 10/12/18 10/12/18 17:44 22:33 23:54 WBC RBC Hgb Hct RDW Lymph % (Auto) [place] % (Auto) [place] # Seg Neutrophils % Seg Neuts % (Manual) Lymphocytes % (Manual) Seg Neutrophils # Seg Neutrophils # Man Lymphocytes # (Manual) Monocytes # (Manual) PT INR APTT POC ABG pH ABG pH POC ABG pCO2 POC ABG pO2 ABG pO2 ABG HCO3 ABG O2 Saturation ABG Base Excess ABG Hemoglobin Oxyhemoglobin Sodium Chloride Carbon Dioxide BUN Creatinine Glucose POC Glucose 143 H 180 H Lactic Acid Calcium Magnesium AST ALT Total Creatine Kinase C-Reactive Protein Total Protein Albumin Urine WBC (Auto) Vancomycin Trough 4.8 L Salicylates Acetaminophen 10/13/18 10/13/18 10/13/18 02:30 02:30 03:10 WBC 19.8 H RBC 3.12 L Hgb 9.2 L Hct 28.2 L RDW Lymph % (Auto) 8.1 L [place] % (Auto) 8.0 H [place] # 1.6 H Seg Neutrophils % 83.2 H Seg Neuts % (Manual) Lymphocytes % (Manual) Seg Neutrophils # 16.5 H Seg Neutrophils # Man Lymphocytes # (Manual) Monocytes # (Manual) PT INR APTT POC ABG pH ABG pH POC ABG pCO2 POC ABG pO2 ABG pO2 ABG HCO3 32.9 H ABG O2 Saturation ABG Base Excess 7.2 H ABG Hemoglobin 10.8 L Oxyhemoglobin Sodium Chloride Carbon Dioxide BUN Creatinine 0.3 L Glucose 139 H POC Glucose Lactic Acid Calcium Magnesium AST ALT Total Creatine Kinase C-Reactive Protein Total Protein Albumin Urine WBC (Auto) Vancomycin Trough Salicylates Acetaminophen 10/13/18 10/13/18 10/13/18 05:17 11:52 17:18 WBC RBC Hgb Hct RDW Lymph % (Auto) [place] % (Auto) [place] # Seg Neutrophils % Seg Neuts % (Manual) Lymphocytes % (Manual) Seg Neutrophils # Seg Neutrophils # Man Lymphocytes # (Manual) Monocytes # (Manual) PT INR APTT POC ABG pH ABG pH POC ABG pCO2 56.7 H POC ABG pO2 63 L ABG pO2 ABG HCO3 ABG O2 Saturation ABG Base Excess ABG Hemoglobin Oxyhemoglobin Sodium Chloride Carbon Dioxide BUN Creatinine Glucose POC Glucose 192 H 200 H Lactic Acid Calcium Magnesium AST ALT Total Creatine Kinase C-Reactive Protein Total Protein Albumin Urine WBC (Auto) Vancomycin Trough Salicylates Acetaminophen 10/13/18 10/14/18 10/14/18 17:53 00:00 03:55 WBC RBC Hgb Hct RDW Lymph % (Auto) [place] % (Auto) [place] # Seg Neutrophils % Seg Neuts % (Manual) Lymphocytes % (Manual) Seg Neutrophils # Seg Neutrophils # Man Lymphocytes # (Manual) Monocytes # (Manual) PT INR APTT POC ABG pH ABG pH POC ABG pCO2 POC ABG pO2 ABG pO2 ABG HCO3 34.1 H ABG O2 Saturation ABG Base Excess 8.4 H ABG Hemoglobin 10.6 L Oxyhemoglobin 94.8 L Sodium Chloride Carbon Dioxide BUN Creatinine Glucose POC Glucose 215 H 236 H Lactic Acid Calcium Magnesium AST ALT Total Creatine Kinase C-Reactive Protein Total Protein Albumin Urine WBC (Auto) Vancomycin Trough Salicylates Acetaminophen 10/14/18 10/14/18 10/14/18 05:00 08:05 08:05 WBC 16.8 H RBC 3.27 L Hgb 9.8 L Hct 29.7 L RDW 13.1 L Lymph % (Auto) 7.5 L [place] % (Auto) 8.6 H [place] # 1.4 H Seg Neutrophils % 82.4 H Seg Neuts % (Manual) Lymphocytes % (Manual) Seg Neutrophils # 13.8 H Seg Neutrophils # Man Lymphocytes # (Manual) Monocytes # (Manual) PT INR APTT POC ABG pH ABG pH POC ABG pCO2 POC ABG pO2 ABG pO2 ABG HCO3 ABG O2 Saturation ABG Base Excess ABG Hemoglobin Oxyhemoglobin Sodium Chloride Carbon Dioxide 33 H BUN Creatinine 0.3 L Glucose 140 H POC Glucose 170 H Lactic Acid Calcium Magnesium AST ALT Total Creatine Kinase C-Reactive Protein Total Protein Albumin Urine WBC (Auto) Vancomycin Trough Salicylates Acetaminophen 10/14/18 10/14/18 10/14/18 12:04 14:06 18:04 WBC RBC Hgb Hct RDW Lymph % (Auto) [place] % (Auto) [place] # Seg Neutrophils % Seg Neuts % (Manual) Lymphocytes % (Manual) Seg Neutrophils # Seg Neutrophils # Man Lymphocytes # (Manual) Monocytes # (Manual) PT INR APTT POC ABG pH 7.330 L ABG pH POC ABG pCO2 67.6 H POC ABG pO2 75 L ABG pO2 ABG HCO3 ABG O2 Saturation ABG Base Excess ABG Hemoglobin Oxyhemoglobin Sodium Chloride Carbon Dioxide BUN Creatinine Glucose POC Glucose 202 H 189 H Lactic Acid Calcium Magnesium AST ALT Total Creatine Kinase C-Reactive Protein Total Protein Albumin Urine WBC (Auto) Vancomycin Trough Salicylates Acetaminophen 10/14/18 10/15/18 10/15/18 23:16 04:58 05:03 WBC 18.0 H RBC 3.36 L Hgb Hct RDW Lymph % (Auto) 7.5 L [place] % (Auto) [place] # 1.3 H Seg Neutrophils % 83.2 H Seg Neuts % (Manual) Lymphocytes % (Manual) Seg Neutrophils # 15.0 H Seg Neutrophils # Man Lymphocytes # (Manual) Monocytes # (Manual) PT INR APTT POC ABG pH ABG pH POC ABG pCO2 54.9 H POC ABG pO2 72 L ABG pO2 ABG HCO3 ABG O2 Saturation ABG Base Excess ABG Hemoglobin Oxyhemoglobin Sodium Chloride Carbon Dioxide BUN Creatinine Glucose POC Glucose 187 H Lactic Acid Calcium Magnesium AST ALT Total Creatine Kinase C-Reactive Protein Total Protein Albumin Urine WBC (Auto) Vancomycin Trough Salicylates Acetaminophen 10/15/18 10/15/18 10/15/18 05:03 05:54 11:53 WBC RBC Hgb Hct RDW Lymph % (Auto) [place] % (Auto) [place] # Seg Neutrophils % Seg Neuts % (Manual) Lymphocytes % (Manual) Seg Neutrophils # Seg Neutrophils # Man Lymphocytes # (Manual) Monocytes # (Manual) PT INR APTT POC ABG pH ABG pH POC ABG pCO2 POC ABG pO2 ABG pO2 ABG HCO3 ABG O2 Saturation ABG Base Excess ABG Hemoglobin Oxyhemoglobin Sodium Chloride Carbon Dioxide 33 H BUN 19 H Creatinine 0.3 L Glucose 161 H POC Glucose 191 H 188 H Lactic Acid Calcium Magnesium AST ALT Total Creatine Kinase C-Reactive Protein Total Protein Albumin Urine WBC (Auto) Vancomycin Trough Salicylates Acetaminophen 10/15/18 10/15/18 10/16/18 17:30 23:15 05:05 WBC RBC Hgb Hct RDW Lymph % (Auto) [place] % (Auto) [place] # Seg Neutrophils % Seg Neuts % (Manual) Lymphocytes % (Manual) Seg Neutrophils # Seg Neutrophils # Man Lymphocytes # (Manual) Monocytes # (Manual) PT INR APTT POC ABG pH ABG pH 7.452 H POC ABG pCO2 POC ABG pO2 ABG pO2 66.6 L ABG HCO3 33.3 H ABG O2 Saturation 94.0 L ABG Base Excess 8.4 H ABG Hemoglobin 8.7 L Oxyhemoglobin 92.1 L Sodium Chloride Carbon Dioxide BUN Creatinine Glucose POC Glucose 178 H 177 H Lactic Acid Calcium Magnesium AST ALT Total Creatine Kinase C-Reactive Protein Total Protein Albumin Urine WBC (Auto) Vancomycin Trough Salicylates Acetaminophen 10/16/18 10/16/18 10/16/18 05:12 05:12 05:49 WBC 21.9 H RBC 3.62 L Hgb Hct RDW Lymph % (Auto) [place] % (Auto) [place] # Seg Neutrophils % Seg Neuts % (Manual) 93.0 H Lymphocytes % (Manual) 1.0 L Seg Neutrophils # Seg Neutrophils # Man 20.4 H Lymphocytes # (Manual) 0.2 L Monocytes # (Manual) 0.9 H PT INR APTT POC ABG pH ABG pH POC ABG pCO2 POC ABG pO2 ABG pO2 ABG HCO3 ABG O2 Saturation ABG Base Excess ABG Hemoglobin Oxyhemoglobin Sodium 136 L Chloride 96.3 L Carbon Dioxide 34 H BUN 20 H Creatinine 0.3 L Glucose 183 H POC Glucose 187 H Lactic Acid Calcium Magnesium AST ALT Total Creatine Kinase C-Reactive Protein Total Protein Albumin Urine WBC (Auto) Vancomycin Trough Salicylates Acetaminophen 10/16/18 10/16/18 10/16/18 11:25 17:41 23:08 WBC RBC Hgb Hct RDW Lymph % (Auto) [place] % (Auto) [place] # Seg Neutrophils % Seg Neuts % (Manual) Lymphocytes % (Manual) Seg Neutrophils # Seg Neutrophils # Man Lymphocytes # (Manual) Monocytes # (Manual) PT INR APTT POC ABG pH ABG pH POC ABG pCO2 POC ABG pO2 ABG pO2 ABG HCO3 ABG O2 Saturation ABG Base Excess ABG Hemoglobin Oxyhemoglobin Sodium Chloride Carbon Dioxide BUN Creatinine Glucose POC Glucose 200 H 184 H 166 H Lactic Acid Calcium Magnesium AST ALT Total Creatine Kinase C-Reactive Protein Total Protein Albumin Urine WBC (Auto) Vancomycin Trough Salicylates Acetaminophen 10/17/18 10/17/18 10/17/18 04:32 04:32 05:12 WBC 19.9 H RBC 3.53 L Hgb Hct RDW Lymph % (Auto) 6.8 L [place] % (Auto) 7.8 H [place] # 1.5 H Seg Neutrophils % 84.2 H Seg Neuts % (Manual) Lymphocytes % (Manual) Seg Neutrophils # 16.7 H Seg Neutrophils # Man Lymphocytes # (Manual) Monocytes # (Manual) PT INR APTT POC ABG pH ABG pH POC ABG pCO2 POC ABG pO2 ABG pO2 ABG HCO3 ABG O2 Saturation ABG Base Excess ABG Hemoglobin Oxyhemoglobin Sodium Chloride Carbon Dioxide 32 H BUN 20 H Creatinine 0.3 L Glucose 155 H POC Glucose 164 H Lactic Acid Calcium Magnesium AST ALT Total Creatine Kinase C-Reactive Protein Total Protein Albumin Urine WBC (Auto) Vancomycin Trough Salicylates Acetaminophen 10/17/18 10/17/18 10/17/18 12:24 13:21 18:03 WBC RBC Hgb Hct RDW Lymph % (Auto) [place] % (Auto) [place] # Seg Neutrophils % Seg Neuts % (Manual) Lymphocytes % (Manual) Seg Neutrophils # Seg Neutrophils # Man Lymphocytes # (Manual) Monocytes # (Manual) PT INR APTT POC ABG pH 7.337 L ABG pH POC ABG pCO2 68.3 H POC ABG pO2 79 L ABG pO2 ABG HCO3 ABG O2 Saturation ABG Base Excess ABG Hemoglobin Oxyhemoglobin Sodium Chloride Carbon Dioxide BUN Creatinine Glucose POC Glucose 169 H 139 H Lactic Acid Calcium Magnesium AST ALT Total Creatine Kinase C-Reactive Protein Total Protein Albumin Urine WBC (Auto) Vancomycin Trough Salicylates Acetaminophen 10/17/18 10/18/18 10/18/18 23:13 03:29 05:33 WBC RBC Hgb Hct RDW Lymph % (Auto) [place] % (Auto) [place] # Seg Neutrophils % Seg Neuts % (Manual) Lymphocytes % (Manual) Seg Neutrophils # Seg Neutrophils # Man Lymphocytes # (Manual) Monocytes # (Manual) PT INR APTT POC ABG pH 7.472 H ABG pH POC ABG pCO2 POC ABG pO2 ABG pO2 ABG HCO3 ABG O2 Saturation ABG Base Excess ABG Hemoglobin Oxyhemoglobin Sodium Chloride Carbon Dioxide BUN Creatinine Glucose POC Glucose 170 H 151 H Lactic Acid Calcium Magnesium AST ALT Total Creatine Kinase C-Reactive Protein Total Protein Albumin Urine WBC (Auto) Vancomycin Trough Salicylates Acetaminophen 10/18/18 10/18/18 10/18/18 11:37 18:06 23:23 WBC RBC Hgb Hct RDW Lymph % (Auto) [place] % (Auto) [place] # Seg Neutrophils % Seg Neuts % (Manual) Lymphocytes % (Manual) Seg Neutrophils # Seg Neutrophils # Man Lymphocytes # (Manual) Monocytes # (Manual) PT INR APTT POC ABG pH ABG pH POC ABG pCO2 POC ABG pO2 ABG pO2 ABG HCO3 ABG O2 Saturation ABG Base Excess ABG Hemoglobin Oxyhemoglobin Sodium Chloride Carbon Dioxide BUN Creatinine Glucose POC Glucose 170 H 165 H 153 H Lactic Acid Calcium Magnesium AST ALT Total Creatine Kinase C-Reactive Protein Total Protein Albumin Urine WBC (Auto) Vancomycin Trough Salicylates Acetaminophen 10/19/18 10/19/18 10/19/18 05:39 08:41 08:41 WBC 13.4 H RBC 3.27 L Hgb 9.5 L Hct 29.7 L RDW Lymph % (Auto) [place] % (Auto) [place] # Seg Neutrophils % Seg Neuts % (Manual) Lymphocytes % (Manual) Seg Neutrophils # Seg Neutrophils # Man Lymphocytes # (Manual) Monocytes # (Manual) PT INR APTT POC ABG pH ABG pH POC ABG pCO2 POC ABG pO2 ABG pO2 ABG HCO3 ABG O2 Saturation ABG Base Excess ABG Hemoglobin Oxyhemoglobin Sodium Chloride Carbon Dioxide 34 H BUN 18 H Creatinine 0.3 L Glucose 137 H POC Glucose 162 H Lactic Acid Calcium 10.5 H Magnesium AST ALT Total Creatine Kinase C-Reactive Protein Total Protein Albumin Urine WBC (Auto) Vancomycin Trough Salicylates Acetaminophen 10/19/18 10/19/18 10/19/18 12:07 16:51 23:17 WBC RBC Hgb Hct RDW Lymph % (Auto) [place] % (Auto) [place] # Seg Neutrophils % Seg Neuts % (Manual) Lymphocytes % (Manual) Seg Neutrophils # Seg Neutrophils # Man Lymphocytes # (Manual) Monocytes # (Manual) PT INR APTT POC ABG pH ABG pH POC ABG pCO2 POC ABG pO2 ABG pO2 ABG HCO3 ABG O2 Saturation ABG Base Excess ABG Hemoglobin Oxyhemoglobin Sodium Chloride Carbon Dioxide BUN Creatinine Glucose POC Glucose 183 H 189 H 179 H Lactic Acid Calcium Magnesium AST ALT Total Creatine Kinase C-Reactive Protein Total Protein Albumin Urine WBC (Auto) Vancomycin Trough Salicylates Acetaminophen 10/20/18 10/20/18 10/20/18 05:21 12:20 16:40 WBC RBC Hgb Hct RDW Lymph % (Auto) [place] % (Auto) [place] # Seg Neutrophils % Seg Neuts % (Manual) Lymphocytes % (Manual) Seg Neutrophils # Seg Neutrophils # Man Lymphocytes # (Manual) Monocytes # (Manual) PT INR APTT POC ABG pH ABG pH POC ABG pCO2 POC ABG pO2 ABG pO2 ABG HCO3 ABG O2 Saturation ABG Base Excess ABG Hemoglobin Oxyhemoglobin Sodium Chloride Carbon Dioxide BUN Creatinine Glucose POC Glucose 142 H 155 H 132 H Lactic Acid Calcium Magnesium AST ALT Total Creatine Kinase C-Reactive Protein Total Protein Albumin Urine WBC (Auto) Vancomycin Trough Salicylates Acetaminophen 10/20/18 10/21/18 10/21/18 23:48 04:11 04:11 WBC 11.3 H RBC 3.19 L Hgb 9.5 L Hct 28.7 L RDW Lymph % (Auto) 12.2 L [place] % (Auto) [place] # Seg Neutrophils % 78.6 H Seg Neuts % (Manual) Lymphocytes % (Manual) Seg Neutrophils # 8.8 H Seg Neutrophils # Man Lymphocytes # (Manual) Monocytes # (Manual) PT INR APTT POC ABG pH ABG pH POC ABG pCO2 POC ABG pO2 ABG pO2 ABG HCO3 ABG O2 Saturation ABG Base Excess ABG Hemoglobin Oxyhemoglobin Sodium Chloride Carbon Dioxide 36 H BUN Creatinine 0.3 L Glucose 137 H POC Glucose 163 H Lactic Acid Calcium 10.8 H Magnesium AST ALT Total Creatine Kinase C-Reactive Protein Total Protein Albumin Urine WBC (Auto) Vancomycin Trough Salicylates Acetaminophen 10/21/18 05:49 WBC RBC Hgb Hct RDW Lymph % (Auto) [place] % (Auto) [place] # Seg Neutrophils % Seg Neuts % (Manual) Lymphocytes % (Manual) Seg Neutrophils # Seg Neutrophils # Man Lymphocytes # (Manual) Monocytes # (Manual) PT INR APTT POC ABG pH ABG pH POC ABG pCO2 POC ABG pO2 ABG pO2 ABG HCO3 ABG O2 Saturation ABG Base Excess ABG Hemoglobin Oxyhemoglobin Sodium Chloride Carbon Dioxide BUN Creatinine Glucose POC Glucose 158 H Lactic Acid Calcium Magnesium AST ALT Total Creatine Kinase C-Reactive Protein Total Protein Albumin Urine WBC (Auto) Vancomycin Trough Salicylates Acetaminophen Allied health notes reviewed: nursing
--- NOTE | 2018-10-21 09:23 | Vascular Lab Report ---
Left upper extremity venous Doppler Ultrasound HISTORY: SWELLING. TECHNIQUE: Grayscale and color Doppler imaging performed. COMPARISON: None FINDINGS: No thrombus identified from the level of the internal jugular through the subclavian, axill lauren, brachial, basilic, cephalic, radial, and ulnar veins. IMPRESSION: Negative for DVT. Signer Name: Tomi Mcdonough MD Signed: 10/21/2018 9:18 AM Workstation Name: [id number]
[2018-10-21] MEDS: LOPRESSOR PO SCH ×2 (09:49→21:49)
[2018-10-21] MEDS: KEPPRA PO SCH ×2 (09:49→21:49)
[2018-10-21] MEDS: APRESOLINE PO SCH ×2 (09:49→21:50)
[2018-10-21] MEDS: PROVIGIL PO SCH (09:50)
[2018-10-21] MEDS: ELIQUIS PO SCH ×2 (09:50→21:49)
[2018-10-21] MEDS: PEPCID PO SCH ×2 (09:50→21:49)
[2018-10-21] MEDS: SODIUM CHLORIDE FLUSH SYRINGE 10 ML IV SCH ×2 (09:54→21:50)
[2018-10-21] MEDS: TYLENOL FEEDTUBE PRN ×2 (11:44→18:44)
--- NOTE | 2018-10-21 13:51 | Progress Note ---
Assessment and Plan Assessment and plan: Sepsis. Patient off pressors. Continue antibiotics per infectious disease. Left lower lobe pneumonia. Continue antibiotics per ID recommendation Left lung collapse; Dr. Jacobo did broch, CXR after bronchoscopy showed improvement Anoxic brain injury. EEG per Neurology shows no epileptiform abnormalities, focal or lateralizing features, or significant interhemispheric findings.. MRI findings consistent with anoxic brain injury. Keppra started per neurology twice a day for seizure prophylaxis. Cont. Provigil Dr. Sr consulted and had a long discussion about the prognosis. CT head sh owed cytotoxic edema, severe anoxic brain injury. Cardiopulmonary arrest. Echo revealed EF 60-65%, mild LVH, impaired relaxation, mild TR, mild pulm HTN RVSP 48mmHg, small pericardial effusion, left pleural effusion. Continue supportive care. S/P ACLS protocol initiation with return of cardiac rhythm Acute hypoxemic respiratory failure. Continue mechanical ventilation per pulmonary. Cont. SBT. Patient will need consideration for trach and PEG discussions on Tuesday. Paroxysmal atrial fibrillation. Per cardiology recommendations. Hypertension. Continue antihypertensive medications as needed. Elevated LFTs. Etiology likely secondary to sepsis/shock/ischemic hepatitis. POLLY. Per pulmonary. Overall poor prognosis with minimal chance for neurological recovery Discharge status; DNR We had a long discussion me, Dr. Jacobo, Dr. Sr, case management, practical nursing faculty and the patient's nurse with all of the family members and they want her to be DNR and want to discuss with each other to discuss with the next step. But they declined PEG and trach. The high probability of a clinically significant, sudden or life threatening deterioration of the [respiratory, cardiovascular, neurology] system(s) required my full and direct attention, intervention and personal management. The aggregate critical care time was [34] minutes. This time is in addition to time spent performing reported procedures but includes the following: [x] Data Review and interpretation [x] Patient assessment and monitoring of vital signs [x] Documentation [x] Medication orders and management History Interval history: Patient was seen and evaluated this morning, and is intubated and on mechanical ventilation Hospitalist Physical - Physical exam Narrative exam: Patient is intubated on the mechanical ventilation The patient appeared well nourished and normally developed. Vital signs as documented. Head exam is unremarkable. No scleral icterus . Neck is without jugular venous distension, thyromegaly, or carotid bruits. Lungs are clear to auscultation. Cardiac exam reveals regular rate and Rhythm. First and second heart sounds normal. No murmurs, rubs or gallops. Abdominal exam reveals normal bowel sounds, no masses, no organomegaly and no aortic enlargement. Extremities are nonedematous and both femoral and pedal pulses are normal. MIME ARTIST: Patient open her eyes. Has some brainstem reflexes. - Constitutional Vitals: Temp Pulse Resp BP Pulse Ox 97.8 F 62 12 132/49 99 10/21/18 12:00 10/21/18 12:00 10/21/18 12:00 10/21/18 12:00 10/21/18 12:10 General appearance: Present: no acute distress, other (orally intubated) Results - Labs CBC & Chem 7: 10/21/18 04:11 10/21/18 04:11 Labs: Laboratory Last Values WBC 11.3 K/mm3 (4.5-11.0) H 10/21/18 04:11 RBC 3.19 M/mm3 (3.65-5.03) L 10/21/18 04:11 Hgb 9.5 gm/dl (10.1-14.3) L 10/21/18 04:11 Hct 28.7 % (30.3-42.9) L 10/21/18 04:11 MCV 90 fl (79-97) 10/21/18 04:11 MCH 30 pg (28-32) 10/21/18 04:11 MCHC 33 % (30-34) 10/21/18 04:11 RDW 14.4 % (13.2-15.2) 10/21/18 04:11 Plt Count 343 K/mm3 (140-440) 10/21/18 04:11 Lymph % (Auto) 12.2 % (13.4-35.0) L 10/21/18 04:11 [place] % (Auto) 6.9 % (0.0-7.3) 10/21/18 04:11 Eos % (Auto) 2.0 % (0.0-4.3) 10/21/18 04:11 Baso % (Auto) 0.3 % (0.0-1.8) 10/21/18 04:11 Lymph # 1.4 K/mm3 (1.2-5.4) 10/21/18 04:11 [place] # 0.8 K/mm3 (0.0-0.8) 10/21/18 04:11 Eos # 0.2 K/mm3 (0.0-0.4) 10/21/18 04:11 Baso # 0.0 K/mm3 (0.0-0.1) 10/21/18 04:11 Add Manual Diff Complete 10/16/18 05:12 Total Counted 100 10/16/18 05:12 Seg Neutrophils % 78.6 % (40.0-70.0) H 10/21/18 04:11 Seg Neuts % (Manual) 93.0 % (40.0-70.0) H 10/16/18 05:12 1.0 % 10/16/18 05:12 1.0 % (13.4-35.0) L 10/16/18 05:12 Reactive Lymphs % (Man) 0 % 10/16/18 05:12 4.0 % (0.0-7.3) 10/16/18 05:12 0 % (0.0-4.3) 10/16/18 05:12 0 % (0.0-1.8) 10/16/18 05:12 1.0 % 10/16/18 05:12 0 % 10/16/18 05:12 0 % 10/16/18 05:12 0 % 10/16/18 05:12 Nucleated RBC % Not Reportable 10/16/18 05:12 Seg Neutrophils # 8.8 K/mm3 (1.8-7.7) H 10/21/18 04:11 Seg Neutrophils # Man 20.4 K/mm3 (1.8-7.7) H 10/16/18 05:12 Band Neutrophils # 0.2 K/mm3 10/16/18 05:12 0.2 K/mm3 (1.2-5.4) L 10/16/18 05:12 Abs React Lymphs (Man) 0.0 K/mm3 10/16/18 05:12 0.9 K/mm3 (0.0-0.8) H 10/16/18 05:12 0.0 K/mm3 (0.0-0.4) 10/16/18 05:12 0.0 K/mm3 (0.0-0.1) 10/16/18 05:12 0.2 K/mm3 10/16/18 05:12 0.0 K/mm3 10/16/18 05:12 0.0 K/mm3 10/16/18 05:12 Blast Cells # 0.0 K/mm3 10/16/18 05:12 WBC Morphology Not Reportable 10/16/18 05:12 Hypersegmented Neuts Not Reportable 10/16/18 05:12 Hyposegmented Neuts Not Reportable 10/16/18 05:12 Hypogranular Neuts Not Reportable 10/16/18 05:12 Not Reportable 10/16/18 05:12 Not Reportable 10/16/18 05:12 Not Reportable 10/16/18 05:12 Not Reportable 10/16/18 05:12 Not Reportable 10/16/18 05:12 Not Reportable 10/16/18 05:12 Consistent w auto 10/16/18 05:12 Not Reportable 10/16/18 05:12 Plt Clumps, EDTA Not Reportable 10/16/18 05:12 Not Reportable 10/16/18 05:12 Not Reportable 10/16/18 05:12 Not Reportable 10/16/18 05:12 Plt Morphology Comment Not Reportable 10/16/18 05:12 RBC Morphology Not Reportable 10/16/18 05:12 Dimorphic RBCs Not Reportable 10/16/18 05:12 Not Reportable 10/16/18 05:12 Not Reportable 10/16/18 05:12 Not Reportable 10/16/18 05:12 Not Reportable 10/16/18 05:12 Not Reportable 10/16/18 05:12 Not Reportable 10/16/18 05:12 Not Reportable 10/16/18 05:12 Not Reportable 10/16/18 05:12 Not Reportable 10/16/18 05:12 Not Reportable 10/16/18 05:12 Not Reportable 10/16/18 05:12 Rare 10/16/18 05:12 Not Reportable 10/16/18 05:12 Not Reportable 10/16/18 05:12 Not Reportable 10/16/18 05:12 Not Reportable 10/16/18 05:12 Not Reportable 10/16/18 05:12 Not Reportable 10/16/18 05:12 Not Reportable 10/16/18 05:12 Acanthocytes (Spur) Not Reportable 10/16/18 05:12 Rouleaux Not Reportable 10/16/18 05:12 Not Reportable 10/16/18 05:12 Not Reportable 10/16/18 05:12 Not Reportable 10/16/18 05:12 Not Reportable 10/16/18 05:12 Hem Pathologist Commnt No 10/16/18 05:12 PT 16.6 Sec. (12.2-14.9) H 10/09/18 10:50 INR 1.38 (0.87-1.13) H 10/09/18 10:50 APTT 39.4 Sec. (24.2-36.6) H 10/09/18 10:50 POC ABG pH 7.472 (7.35-7.45) H 10/18/18 03:29 ABG pH 7.452 pH Units (7.350-7.450) H 10/16/18 05:05 POC ABG pCO2 43.6 (35-45) 10/18/18 03:29 ABG pCO2 48.7 mm Hg 10/16/18 05:05 POC ABG pO2 97 (80-105) 10/18/18 03:29 ABG pO2 66.6 mm Hg (80.0-90.0) L 10/16/18 05:05 POC ABG HCO3 31.9 (22-26 mml/L) 10/18/18 03:29 ABG HCO3 33.3 mmol/L (20.0-26.0) H 10/16/18 05:05 POC ABG Total CO2 33 (23-27mmol/L) 10/18/18 03:29 POC ABG O2 Sat 98 10/18/18 03:29 ABG O2 Saturation 94.0 % (95.0-99.0) L 10/16/18 05:05 ABG O2 Content 11.4 (0.0-44) 10/16/18 05:05 POC ABG Base Excess 8 ((-2) - (+3)mmol/L) 10/18/18 03:29 ABG Base Excess 8.4 mmol/L (-2.0-3.0) H 10/16/18 05:05 ABG Hemoglobin 8.7 gm/dl (12.0-16.0) L 10/16/18 05:05 ABG Carboxyhemoglobin 1.5 % (0.0-5.0) 10/16/18 05:05 ABG Methemoglobin 0.6 % (0.0-1.5) 10/16/18 05:05 92.1 % (95.0-99.0) L 10/16/18 05:05 40 % 10/18/18 03:29 Sodium 140 mmol/L (137-145) 10/21/18 04:11 Potassium 4.3 mmol/L (3.6-5.0) 10/21/18 04:11 Chloride 98.5 mmol/L (98-107) 10/21/18 04:11 Carbon Dioxide 36 mmol/L (22-30) H 10/21/18 04:11 10 mmol/L 10/21/18 04:11 BUN 14 mg/dL (7-17) 10/21/18 04:11 0.3 mg/dL (0.7-1.2) L 10/21/18 04:11 Estimated GFR > 60 ml/min 10/21/18 04:11 47 % 10/21/18 04:11 Glucose 137 mg/dL (65-100) H 10/21/18 04:11 POC Glucose 169 (70-105) H 10/21/18 11:20 Lactic Acid 1.90 mmol/L (0.7-2.0) 10/09/18 20:50 Calcium 10.8 mg/dL (8.4-10.2) H 10/21/18 04:11 Magnesium 3.70 mg/dL (1.7-2.3) H 10/09/18 10:50 0.30 mg/dL (0.1-1.2) 10/09/18 10:50 AST 51 units/L (5-40) H 10/09/18 10:50 ALT 67 units/L (7-56) H 10/09/18 10:50 60 units/L (35-129) 10/09/18 10:50 171 units/L (30-135) H 10/09/18 10:50 < 0.010 ng/mL (0.00-0.029) 10/09/18 10:50 2.70 mg/dL (0.00-1.30) H 10/12/18 13:03 5.3 g/dL (6.3-8.2) L 10/09/18 10:50 3.0 g/dL (3.9-5) L 10/09/18 10:50 1.3 % 10/09/18 10:50 Yellow (Yellow) 10/09/18 12:12 Hazy (Clear) 10/09/18 12:12 7.0 (5.0-7.0) 10/09/18 12:12 Ur Specific [place] 1.011 (1.003-1.030) 10/09/18 12:12 100 mg/dl mg/dL (Negative) 10/09/18 12:12 150 mg/dL (Negative) 10/09/18 12:12 Neg mg/dL (Negative) 10/09/18 12:12 Sm (Negative) 10/09/18 12:12 Neg (Negative) 10/09/18 12:12 Neg (Negative) 10/09/18 12:12 < 2.0 mg/dL (<2.0) 10/09/18 12:12 Ur Leukocyte Esterase Neg (Negative) 10/09/18 12:12 8.0 /HPF (0.0-6.0) H 10/09/18 12:12 7.0 /HPF (0.0-6.0) 10/09/18 12:12 Few /HPF 10/09/18 12:12 Vancomycin Trough 4.8 ug/mL (5.0-20.0) L 10/12/18 22:33 Salicylates < 0.3 mg/dL (2.8-20.0) L 10/09/18 10:50 Acetaminophen < 5.0 ug/mL (10.0-30.0) L 10/09/18 10:50 Plasma/Serum Alcohol < 0.01 % (0-0.07) 10/09/18 10:50 Active Medications - Current Medications Current Medications: Generic Name Dose Route Start Last Admin Trade Name Freq PRN Reason Stop Dose Admin Acetaminophen 650 mg 10/19/18 09:00 10/21/18 11:44 Tylenol FEEDTUBE 650 mg Q4H PRN Administration Pain, Mild (1-3) Albuterol 2.5 mg 10/12/18 12:20 Proventil IH Q4HRT PRN Shortness Of Breath Lipase/Protease/Amylase 1 each 10/10/18 10:31 Pancreeleanor Prajapati 10,500 Unit FEEDTUBE PRN PRN For Clogged Feeding Tube Apixaban 5 mg 10/09/18 22:00 10/21/18 09:50 Eliquis PO 5 mg BID SAUNDRA Administration Protocol Diltiazem HCl 60 mg 10/10/18 12:00 10/21/18 11:26 Cardizem PO 60 mg Q6HR SAUNDRA Administration Famotidine 20 mg 10/10/18 22:00 10/21/18 09:50 Pepcid PO 20 mg BID SAUNDRA Administration Fentanyl 50 mcg 10/09/18 10:48 10/09/18 14:24 Sublimaze IV 50 mcg Q10MIN PRN Administration ANALGESIA Hydralazine HCl 10 mg 10/16/18 02:07 10/16/18 02:20 Apresoline IV 10 mg Q4H PRN Administration Blood Pressure Hydralazine HCl 25 mg 10/16/18 15:00 10/21/18 09:49 Apresoline PO 25 mg BID SAUNDRA Administration Hydrophilic Ointment 1 applic 10/09/18 10:48 Vaseline Lip Therapy TP Q2HR PRN Dry Lips Fentanyl Citrate 2,000 mcg in 100 mls @ 3.561 mls/hr 10/09/18 11:00 Fentanyl Drip Premix IV TITR SAUNDRA Protocol 1 MCG/KG/HR Propofol 1,000 mg in 100 mls @ 2.025 mls/hr 10/17/18 14:00 10/18/18 10:58 Diprivan 10 Mg/Ml IV 0 mcg/kg/min TITR SAUNDRA 0 mls/hr Titration Protocol 5 MCG/KG/MIN Insulin Human Lispro 0 unit 10/10/18 12:00 10/21/18 11:25 Humalog SUB-Q 2 unit Q6HR SAUNDRA Administration Protocol Levetiracetam 500 mg 10/11/18 10:00 10/21/18 09:49 Keppra PO 500 mg BID SAUNDRA Administration Metoprolol Tartrate 5 mg 10/10/18 09:21 10/18/18 22:52 Lopressor IV 5 mg Q6HR PRN Administration Hypertension Metoprolol Tartrate 50 mg 10/15/18 14:25 10/21/18 09:49 Lopressor PO 50 mg BID SAUNDRA Administration Midazolam HCl 2 mg 10/12/18 12:21 Versed IV Q2H PRN Sedation Modafinil 100 mg 10/14/18 13:10 10/21/18 09:50 Provigil PO 100 mg QAM SAUNDRA Administration Multi-Ingred Cream/Lotion/Oil/Oint 1 applic 10/09/18 10:48 10/20/18 11:03 Artificial Tears Ophth Oint OU 1 applic Q4HR PRN Administration Dry Eye(s) Simple Syrup 15 ml 10/10/18 10:31 Simple Syrup FEEDTUBE PRN PRN Hypoglycemia Simple Syrup 30 ml 10/20/18 11:20 Simple Syrup FEEDTUBE PRN PRN Hypoglycemia Sodium Bicarbonate 325 mg 10/20/18 11:20 Sodium Bicarbonate FEEDTUBE PRN PRN For Clogged Feeding Tube Sodium Chloride 5 ml 10/09/18 10:48 Nacl 0.9% 500 Ml IV DIRECT PRN ARTERIAL RUBBER MIXER Sodium Chloride 10 ml 10/09/18 22:00 10/21/18 09:54 Sodium Chloride Flush Syringe 10 Ml IV 10 ml BID SAUNDRA Administration Sodium Chloride 10 ml 10/09/18 13:07 Sodium Chloride Flush Syringe 10 Ml IV PRN PRN LINE FLUSH Nutrition/Malnutrition Assess - Dietary Evaluation Nutrition/Malnutrition Findings: Nutrition Notes Start: 10/10/18 08:09 Freq: Status: Active Protocol: Document 10/20/18 08:51 LM (Rec: 10/20/18 08:53 LM [email or web address]) Nutrition Notes Initial or Follow up Reassessment Current Diagnosis Sepsis,Hypertension, Respiratory Failure Other Pertinent Diagnosis Anoxic brain injury Current Diet Vital AF 1.2 at 50 ml/hr Labs/Tests Reviewed Pertinent Medications Reviewed Height 5 ft 2 in Weight 67.5 kg [place] Body Weight (kg) 50.00 BMI 27.2 Weight change and time frame Wt change noted. Subjective/Other Information Pt is at goal rate of 50 ml/hr and tolerating TF. discussed possible trach and PEG. Family member concerned with amount of sugar in TF. Discussed TF selection and concerns with family member. requests Sylvester for pt. Percent of energy/protein needs met: 100%/100% Burn Absent Trauma Absent Minimum of two criteria No #1 Nutrition Diagnosis Inadequate oral intake Diagnosis Progress(for reassessment Continues documentation) Is patient on ventilator? Yes Is Patient Ambulatory and/or Out of Bed No REE-([facility]-confined to bed) [phone] Calculation Used for Recommendations [facility] Additional Notes Protein: 80-134g (1.2-2 g/kg) Fluid: 1 ml/kcal Nutrition Intervention Change Diet Order: Continue TF Nutrition Support: Vital AF 1.2 at 50 ml/hr Flush 75 ml/hr Kcal 1,440 Protein (gm) 90 Fluid (mL) 973 Add Supplement/Snack (indicate name/kcal Sylvester BID /protein ) Provides kCal: 190 Provides Protein (gm) 5 Goal #1 Meet at least 75% of energy and protein needs Anticipated Discharge Needs: Unable to determine at this time Follow-Up By: 10/27/18 Additional Comments F/U for TF rate/tolerance, Sylvester
[2018-10-22] MEDS: CARDIZEM PO SCH ×4 (00:59→17:49)
[2018-10-22] MEDS: HumaLOG SUB-Q SCH ×5 (05:56→17:50)
[2018-10-22] MEDS: PROVIGIL PO SCH (09:39)
[2018-10-22] MEDS: KEPPRA PO SCH ×2 (09:39→22:27)
[2018-10-22] MEDS: APRESOLINE PO SCH ×2 (09:39→22:26)
[2018-10-22] MEDS: ELIQUIS PO SCH ×2 (09:39→22:27)
[2018-10-22] MEDS: PEPCID PO SCH ×2 (09:39→22:26)
[2018-10-22] MEDS: SODIUM CHLORIDE FLUSH SYRINGE 10 ML IV SCH ×2 (09:40→22:28)
[2018-10-22] MEDS: LOPRESSOR PO SCH ×2 (09:40→22:29)
--- NOTE | 2018-10-22 10:40 | Progress Note ---
Assessment and Plan - Sepsis. Patient off pressors. Continue antibiotics per infectious disease. - Left lower lobe pneumonia. Continue antibiotics per ID recommendation - Left lung collapse; Dr. Jacobo did broch, CXR after bronchoscopy showed improvement - Anoxic brain injury. EEG per Neurology shows no epileptiform abnormalities, focal or lateralizing features, or significant interhemispheric findings.. MRI findings consistent with anoxic brain injury. Keppra started per neurology twice a day for seizure prophylaxis. Cont. Provigil Dr. Sr consulted and had a long discussion about the prognosis. CT head showed cytotoxic edema, severe anoxic brain injury. Cardiopulmonary arrest. Echo revealed EF 60-65%, mild LVH, impaired relaxation, mild TR, mild pulm HTN RVSP 48mmHg, small pericardial effusion, left pleural effusion. Continue supportive care. S/P ACLS protocol initiation with ROSC Acute hypoxemic respiratory failure. Continue mechanical ventilation per pulmonary. Cont. SBT. Patient will need consideration for trach and PEG discussions on Tuesday. Paroxysmal atrial fibrillation. Per cardiology recommendations. Hypertension. Continue antihypertensive medications as needed. Elevated LFTs. Etiology likely secondary to sepsis/shock/ischemic hepatitis. POLLY. Per pulmonary. Overall poor prognosis with minimal chance for neurological recovery Code status: DNR Disposition: Famly member decline PEG and trach Will advise on hospice placement Subjective Date of service: 10/22/18 Principal diagnosis: Cardiac arrest with ROSC; Ac hypoxemic resp failure; Ac. encephalopathy Interval history: Remains intubated. Still unresponsive. Discussed with patient's nurse. No vomiting reported. Remains afebrile. Objective - Exam Narrative Exam: Constitutional: Intubated and on mechanical ventilation for over 96 hours, unresponsive, Well-nourished well-developed. In no distress Head: Normocephalic atraumatic Eyes: Pupils are equal round and reactive to light Nose: No enlarged turbinates, no septal deviation. Mouth: Moist mucous membranes. Neck: Supple no thyromegaly. No bruit. No JVD Heart: Regular rate and rhythm, S1-S2 normal. No rubs murmurs or gallop Lungs: Clear to auscultation bilaterally. no rales or rhonchi Abdomen: Soft, nontender. Bowel sound are present. Extremities: No edema, no cyanosis, no clubbing. Neuro: Alert oriented Oriented x3. No focal sensory or motor deficit. Skin: No rashes or hyperpigmented spots Musculoskeletal system: No joint pain or swelling Hematological: No petechia or subcutanous hemorrhages. Immunological: No multiple septic spots on the skin Lymphatic: No generalized lymphadenopathy Psychiatry: Euthymic. Calm. - Constitutional Vitals: Vital Signs - 12hr 10/21/18 10/21/18 10/21/18 23:00 23:10 23:56 Temperature Pulse Rate 63 64 69 Respiratory 10 L 12 Rate Blood Pressure 126/45 126/45 126/45 O2 Sat by Pulse 100 100 100 Oximetry 10/22/18 10/22/18 10/22/18 00:00 00:59 01:00 Temperature 97.7 F Pulse Rate 64 64 63 Respiratory 12 12 Rate Blood Pressure 125/62 125/62 116/44 O2 Sat by Pulse 100 100 Oximetry 10/22/18 10/22/18 10/22/18 02:00 03:00 03:27 Temperature 97.9 F Pulse Rate 68 67 Respiratory 13 12 Rate Blood Pressure 141/53 118/45 O2 Sat by Pulse 100 97 Oximetry 10/22/18 10/22/18 10/22/18 04:00 04:04 05:00 Temperature Pulse Rate 66 63 76 Respiratory 12 12 Rate Blood Pressure 105/42 105/42 137/49 O2 Sat by Pulse 94 99 97 Oximetry 10/22/18 10/22/18 10/22/18 06:00 06:22 07:00 Temperature Pulse Rate 79 78 78 Respiratory 12 15 Rate Blood Pressure 131/49 131/49 137/54 O2 Sat by Pulse 98 98 Oximetry 10/22/18 10/22/18 10/22/18 08:00 08:15 09:00 Temperature Pulse Rate 84 78 79 Respiratory 14 13 Rate Blood Pressure 149/62 149/62 158/57 O2 Sat by Pulse 98 100 100 Oximetry 10/22/18 10/22/18 10/22/18 09:39 09:40 10:00 Temperature Pulse Rate 77 77 72 Respiratory 12 Rate Blood Pressure 162/64 162/64 127/48 O2 Sat by Pulse 100 Oximetry - Labs CBC & Chem 7: 10/21/18 04:11 10/21/18 04:11 Labs: Abnormal lab results 10/21/18 10/21/18 10/22/18 Range/Units 11:20 18:12 00:08 POC Glucose 169 H 150 H 142 H (70-105) 10/22/18 Range/Units 05:34 POC Glucose 172 H (70-105)
--- NOTE | 2018-10-22 16:35 | Progress Note ---
Assessment and Plan s/p cardiopulmonary arrest-OOH with ROSC Acute hyoxemic respiratory failure on MVS Acute hypercapnic respiratory failure Acute encephalopathy- metabolic Sepsis Aspiration pneumonia LLL Left pleural effusion Myoclonic jerks, post arrest Atrial fibrillation with RVR -VAP bundle addressed -Daily SBT on hold based on family preference -Supplemental O2 to keep O2 sats >94 -ABG and CXR prn -AEDs on Keppra -VTE prophylaxis -Stress ulcer prophylaxis -Continue OGT for nutrition and oral medications - Continue tube feeding for nutritional support; accucheck with glycemic control, target blood glucose 140-180mg/dL -Aspiration precautions, HOB >40 -Chronic home medications -Supportive care -Mobility for pressure ulcer prevention -Critical care bundles addressed -Seizure precautions Reports per RT staff that when they have tried to get place the patient on SBT/PSV the family have been threatening and rude. They want us to hold off on weaning trials, because she had an episode of desturations during one PSV trial. The son also had a photo were there was low signal on carla monitor, however all [facility] vitals signs in that photograph were within normal limits. On my examination the low signal alert was not present. I have asked the RN that engineering come and check to see if it happens again. CONDITION: CRITICAL PROGNOSIS: GUARDED TO GRAVE CODE STATUS: FULL CODE The high probability of a clinically significant, sudden or life threatening deterioration of the [Neurology Respiratory, Cardiovascular] system(s) required my full and direct attention, intervention and personal management. The aggreg ate critical care time was [35] minutes. This time is in addition to time spent performing reported procedures but includes the following: [x] Data Review and interpretation [x] Patient assessment and monitoring of vital signs [x] Documentation [x] Medication orders and management Subjective Date of service: 10/22/18 Principal diagnosis: Cardiac arrest with ROSC; Ac hypoxemic resp failure; Ac. encephalopathy Interval history: Follow up for: OOH cardiac arrest with ROSC; acute hypoxic-hypercapnic respiratory failure; myoclonic jerks; acute metabolic encephalopathy- anoxia Seen and examined. 24 hour events reviewed. Vitals, labs, medications, chart and imaging reviewed. Discussed in ICU-IDT rounds. Vitals, labs, medications, chart reviewed. No acute overnight events documented- son at the bedside did not report any events. Accuchecks within range Objective Vital Signs - 12hr 10/22/18 10/22/18 10/22/18 05:00 06:00 06:22 Temperature Pulse Rate 76 79 78 Pulse Rate [ From Monitor] Respiratory 12 12 Rate Blood Pressure 137/49 131/49 131/49 O2 Sat by Pulse 97 98 Oximetry 10/22/18 10/22/18 10/22/18 07:00 08:00 08:15 Temperature 98.1 F Pulse Rate 78 84 78 Pulse Rate [ From Monitor] Respiratory 15 14 Rate Blood Pressure 137/54 149/62 149/62 O2 Sat by Pulse 98 98 100 Oximetry 10/22/18 10/22/18 10/22/18 09:00 09:39 09:40 Temperature Pulse Rate 79 77 77 Pulse Rate [ From Monitor] Respiratory 13 Rate Blood Pressure 158/57 162/64 162/64 O2 Sat by Pulse 100 Oximetry 10/22/18 10/22/18 10/22/18 10:00 10:48 11:00 Temperature Pulse Rate 72 72 69 Pulse Rate [ From Monitor] Respiratory 12 12 Rate Blood Pressure 127/48 121/55 O2 Sat by Pulse 100 99 100 Oximetry 10/22/18 10/22/18 10/22/18 11:56 12:00 12:30 Temperature 98.2 F Pulse Rate 71 73 63 Pulse Rate [ 73 From Monitor] Respiratory 15 Rate Blood Pressure 121/55 143/58 O2 Sat by Pulse 100 Oximetry 10/22/18 10/22/18 13:00 14:00 Temperature Pulse Rate 57 L 58 L Pulse Rate [ From Monitor] Respiratory 12 12 Rate Blood Pressure 120/47 131/45 O2 Sat by Pulse 99 100 Oximetry Constitutional: no acute distress, other (+ myoclonic jerks during sedation vacations) Eyes: non-icteric ENT: oropharynx moist, other (ETT approx 23cm SUELLEN, oral secretions) Neck: supple, no lymphadenopathy, no JVD Effort: normal Ascultation: Bilateral: diminished breath sounds, rhonchi Percussion: Bilateral: not dull Cardiovascular: regular rate and rhythm, other (S1,S2, no murmurs, gallops or rubs) Gastrointestinal: normoactive bowel sounds, soft, non-tender Integumentary: normal Extremities: no cyanosis, no edema, pink and warm, pulses normal Neurologic: unable to assess (encephaloapthic, ), other (posturing to painful stimuli, Pupils are minimally reactive) Psychiatric: other (unable to assess) CBC and BMP: 10/21/18 04:11 10/21/18 04:11 ABG, PT/INR, D-dimer: ABG POC ABG pH 7.472 (7.35-7.45) H 10/18/18 03:29 ABG pH 7.452 pH Units (7.350-7.450) H 10/16/18 05:05 POC ABG pCO2 43.6 (35-45) 10/18/18 03:29 ABG pCO2 48.7 mm Hg 10/16/18 05:05 POC ABG pO2 97 (80-105) 10/18/18 03:29 ABG pO2 66.6 mm Hg (80.0-90.0) L 10/16/18 05:05 POC ABG HCO3 31.9 (22-26 mml/L) 10/18/18 03:29 POC ABG Total CO2 33 (23-27mmol/L) 10/18/18 03:29 POC ABG O2 Sat 98 10/18/18 03:29 ABG O2 Saturation 94.0 % (95.0-99.0) L 10/16/18 05:05 PT/INR, D-dimer PT 16.6 Sec. (12.2-14.9) H 10/09/18 10:50 INR 1.38 (0.87-1.13) H 10/09/18 10:50 Abnormal lab findings: Abnormal Labs 10/09/18 10/09/18 10/09/18 10:14 10:50 10:50 WBC RBC Hgb Hct RDW Lymph % (Auto) [place] % (Auto) [place] # Seg Neutrophils % Seg Neuts % (Manual) Lymphocytes % (Manual) Seg Neutrophils # Seg Neutrophils # Man Lymphocytes # (Manual) Monocytes # (Manual) PT 16.6 H INR 1.38 H APTT 39.4 H POC ABG pH ABG pH POC ABG pCO2 POC ABG pO2 ABG pO2 ABG HCO3 ABG O2 Saturation ABG Base Excess ABG Hemoglobin Oxyhemoglobin Sodium Chloride 90.3 L Carbon Dioxide BUN 21 H Creatinine Glucose 315 H POC Glucose 344 H Lactic Acid Calcium Magnesium AST 51 H ALT 67 H Total Creatine Kinase C-Reactive Protein Total Protein 5.3 L Albumin 3.0 L Urine WBC (Auto) Vancomycin Trough Salicylates Acetaminophen 10/09/18 10/09/18 10/09/18 10:50 10:50 10:50 WBC RBC Hgb Hct RDW Lymph % (Auto) [place] % (Auto) [place] # Seg Neutrophils % Seg Neuts % (Manual) Lymphocytes % (Manual) Seg Neutrophils # Seg Neutrophils # Man Lymphocytes # (Manual) Monocytes # (Manual) PT INR APTT POC ABG pH ABG pH POC ABG pCO2 POC ABG pO2 ABG pO2 ABG HCO3 ABG O2 Saturation ABG Base Excess ABG Hemoglobin Oxyhemoglobin Sodium Chloride Carbon Dioxide BUN Creatinine Glucose POC Glucose Lactic Acid Calcium Magnesium 3.70 H AST ALT Total Creatine Kinase 171 H C-Reactive Protein Total Protein Albumin Urine WBC (Auto) Vancomycin Trough Salicylates < 0.3 L Acetaminophen < 5.0 L 10/09/18 10/09/18 10/09/18 10:50 10:55 11:38 WBC 31.3 H RBC Hgb Hct RDW 13.0 L Lymph % (Auto) [place] % (Auto) [place] # Seg Neutrophils % Seg Neuts % (Manual) 91.5 H Lymphocytes % (Manual) 4.5 L Seg Neutrophils # Seg Neutrophils # Man 28.6 H Lymphocytes # (Manual) Monocytes # (Manual) 1.1 H PT INR APTT POC ABG pH 7.243 L ABG pH POC ABG pCO2 68.0 H POC ABG pO2 389 H ABG pO2 ABG HCO3 ABG O2 Saturation ABG Base Excess ABG Hemoglobin Oxyhemoglobin Sodium Chloride Carbon Dioxide BUN Creatinine Glucose POC Glucose Lactic Acid 9.30 H* Calcium Magnesium AST ALT Total Creatine Kinase C-Reactive Protein Total Protein Albumin Urine WBC (Auto) Vancomycin Trough Salicylates Acetaminophen 10/09/18 10/09/18 10/09/18 12:12 15:28 16:27 WBC RBC Hgb Hct RDW Lymph % (Auto) [place] % (Auto) [place] # Seg Neutrophils % Seg Neuts % (Manual) Lymphocytes % (Manual) Seg Neutrophils # Seg Neutrophils # Man Lymphocytes # (Manual) Monocytes # (Manual) PT INR APTT POC ABG pH 7.598 H ABG pH POC ABG pCO2 POC ABG pO2 61 L ABG pO2 ABG HCO3 ABG O2 Saturation ABG Base Excess ABG Hemoglobin Oxyhemoglobin Sodium Chloride Carbon Dioxide BUN Creatinine Glucose POC Glucose 173 H Lactic Acid Calcium Magnesium AST ALT Total Creatine Kinase C-Reactive Protein Total Protein Albumin Urine WBC (Auto) 8.0 H Vancomycin Trough Salicylates Acetaminophen 10/09/18 10/09/18 10/09/18 16:44 16:44 18:38 WBC RBC Hgb Hct RDW Lymph % (Auto) [place] % (Auto) [place] # Seg Neutrophils % Seg Neuts % (Manual) Lymphocytes % (Manual) Seg Neutrophils # Seg Neutrophils # Man Lymphocytes # (Manual) Monocytes # (Manual) PT INR APTT POC ABG pH ABG pH POC ABG pCO2 POC ABG pO2 ABG pO2 ABG HCO3 ABG O2 Saturation ABG Base Excess ABG Hemoglobin Oxyhemoglobin Sodium Chloride Carbon Dioxide BUN Creatinine Glucose POC Glucose 177 H Lactic Acid 3.80 H* 3.70 H* Calcium Magnesium AST ALT Total Creatine Kinase C-Reactive Protein Total Protein Albumin Urine WBC (Auto) Vancomycin Trough Salicylates Acetaminophen 10/10/18 10/10/18 10/10/18 00:33 04:24 05:32 WBC RBC Hgb Hct RDW Lymph % (Auto) [place] % (Auto) [place] # Seg Neutrophils % Seg Neuts % (Manual) Lymphocytes % (Manual) Seg Neutrophils # Seg Neutrophils # Man Lymphocytes # (Manual) Monocytes # (Manual) PT INR APTT POC ABG pH 7.602 H ABG pH POC ABG pCO2 POC ABG pO2 170 H ABG pO2 ABG HCO3 ABG O2 Saturation ABG Base Excess ABG Hemoglobin Oxyhemoglobin Sodium Chloride Carbon Dioxide BUN Creatinine Glucose POC Glucose 177 H 190 H Lactic Acid Calcium Magnesium AST ALT Total Creatine Kinase C-Reactive Protein Total Protein Albumin Urine WBC (Auto) Vancomycin Trough Salicylates Acetaminophen 10/10/18 10/10/18 10/10/18 07:54 07:54 12:18 WBC 38.6 H RBC Hgb Hct RDW Lymph % (Auto) [place] % (Auto) [place] # Seg Neutrophils % Seg Neuts % (Manual) Lymphocytes % (Manual) Seg Neutrophils # Seg Neutrophils # Man Lymphocytes # (Manual) Monocytes # (Manual) PT INR APTT POC ABG pH ABG pH POC ABG pCO2 POC ABG pO2 ABG pO2 ABG HCO3 ABG O2 Saturation ABG Base Excess ABG Hemoglobin Oxyhemoglobin Sodium Chloride Carbon Dioxide BUN 31 H Creatinine Glucose 124 H POC Glucose 151 H Lactic Acid Calcium Magnesium AST ALT Total Creatine Kinase C-Reactive Protein Total Protein Albumin Urine WBC (Auto) Vancomycin Trough Salicylates Acetaminophen 10/10/18 10/10/18 10/11/18 18:17 23:09 03:40 WBC RBC Hgb Hct RDW Lymph % (Auto) [place] % (Auto) [place] # Seg Neutrophils % Seg Neuts % (Manual) Lymphocytes % (Manual) Seg Neutrophils # Seg Neutrophils # Man Lymphocytes # (Manual) Monocytes # (Manual) PT INR APTT POC ABG pH ABG pH POC ABG pCO2 POC ABG pO2 ABG pO2 91.1 H ABG HCO3 28.8 H ABG O2 Saturation ABG Base Excess ABG Hemoglobin 7.6 L Oxyhemoglobin Sodium Chloride Carbon Dioxide BUN Creatinine Glucose POC Glucose 132 H 124 H Lactic Acid Calcium Magnesium AST ALT Total Creatine Kinase C-Reactive Protein Total Protein Albumin Urine WBC (Auto) Vancomycin Trough Salicylates Acetaminophen 10/11/18 10/11/18 10/11/18 04:45 04:45 06:50 WBC 25.8 H RBC 3.41 L Hgb Hct RDW Lymph % (Auto) [place] % (Auto) [place] # Seg Neutrophils % Seg Neuts % (Manual) 83.0 H Lymphocytes % (Manual) Seg Neutrophils # Seg Neutrophils # Man 21.4 H Lymphocytes # (Manual) Monocytes # (Manual) PT INR APTT POC ABG pH ABG pH POC ABG pCO2 POC ABG pO2 ABG pO2 ABG HCO3 ABG O2 Saturation ABG Base Excess ABG Hemoglobin Oxyhemoglobin Sodium Chloride Carbon Dioxide BUN 26 H Creatinine 0.6 L Glucose 134 H POC Glucose 134 H Lactic Acid Calcium Magnesium AST ALT Total Creatine Kinase C-Reactive Protein Total Protein Albumin Urine WBC (Auto) Vancomycin Trough Salicylates Acetaminophen 10/11/18 10/11/18 10/12/18 13:10 18:08 00:25 WBC RBC Hgb Hct RDW Lymph % (Auto) [place] % (Auto) [place] # Seg Neutrophils % Seg Neuts % (Manual) Lymphocytes % (Manual) Seg Neutrophils # Seg Neutrophils # Man Lymphocytes # (Manual) Monocytes # (Manual) PT INR APTT POC ABG pH ABG pH POC ABG pCO2 POC ABG pO2 ABG pO2 ABG HCO3 ABG O2 Saturation ABG Base Excess ABG Hemoglobin Oxyhemoglobin Sodium Chloride Carbon Dioxide BUN Creatinine Glucose POC Glucose 160 H 166 H 136 H Lactic Acid Calcium Magnesium AST ALT Total Creatine Kinase C-Reactive Protein Total Protein Albumin Urine WBC (Auto) Vancomycin Trough Salicylates Acetaminophen 10/12/18 10/12/18 10/12/18 03:56 04:17 04:17 WBC 19.2 H RBC 3.04 L Hgb 8.9 L Hct 27.2 L RDW Lymph % (Auto) 8.5 L [place] % (Auto) [place] # 1.4 H Seg Neutrophils % 84.2 H Seg Neuts % (Manual) Lymphocytes % (Manual) Seg Neutrophils # 16.2 H Seg Neutrophils # Man Lymphocytes # (Manual) Monocytes # (Manual) PT INR APTT POC ABG pH ABG pH POC ABG pCO2 POC ABG pO2 ABG pO2 77.9 L ABG HCO3 29.4 H ABG O2 Saturation ABG Base Excess 4.4 H ABG Hemoglobin 10.2 L Oxyhemoglobin 94.7 L Sodium Chloride Carbon Dioxide BUN Creatinine 0.5 L Glucose 139 H POC Glucose Lactic Acid Calcium Magnesium AST ALT Total Creatine Kinase C-Reactive Protein Total Protein Albumin Urine WBC (Auto) Vancomycin Trough Salicylates Acetaminophen 10/12/18 10/12/18 10/12/18 05:51 11:46 13:03 WBC RBC Hgb Hct RDW Lymph % (Auto) [place] % (Auto) [place] # Seg Neutrophils % Seg Neuts % (Manual) Lymphocytes % (Manual) Seg Neutrophils # Seg Neutrophils # Man Lymphocytes # (Manual) Monocytes # (Manual) PT INR APTT POC ABG pH ABG pH POC ABG pCO2 POC ABG pO2 ABG pO2 ABG HCO3 ABG O2 Saturation ABG Base Excess ABG Hemoglobin Oxyhemoglobin Sodium Chloride Carbon Dioxide BUN Creatinine Glucose POC Glucose 163 H 162 H Lactic Acid Calcium Magnesium AST ALT Total Creatine Kinase C-Reactive Protein 2.70 H Total Protein Albumin Urine WBC (Auto) Vancomycin Trough Salicylates Acetaminophen 10/12/18 10/12/18 10/12/18 17:44 22:33 23:54 WBC RBC Hgb Hct RDW Lymph % (Auto) [place] % (Auto) [place] # Seg Neutrophils % Seg Neuts % (Manual) Lymphocytes % (Manual) Seg Neutrophils # Seg Neutrophils # Man Lymphocytes # (Manual) Monocytes # (Manual) PT INR APTT POC ABG pH ABG pH POC ABG pCO2 POC ABG pO2 ABG pO2 ABG HCO3 ABG O2 Saturation ABG Base Excess ABG Hemoglobin Oxyhemoglobin Sodium Chloride Carbon Dioxide BUN Creatinine Glucose POC Glucose 143 H 180 H Lactic Acid Calcium Magnesium AST ALT Total Creatine Kinase C-Reactive Protein Total Protein Albumin Urine WBC (Auto) Vancomycin Trough 4.8 L Salicylates Acetaminophen 10/13/18 10/13/18 10/13/18 02:30 02:30 03:10 WBC 19.8 H RBC 3.12 L Hgb 9.2 L Hct 28.2 L RDW Lymph % (Auto) 8.1 L [place] % (Auto) 8.0 H [place] # 1.6 H Seg Neutrophils % 83.2 H Seg Neuts % (Manual) Lymphocytes % (Manual) Seg Neutrophils # 16.5 H Seg Neutrophils # Man Lymphocytes # (Manual) Monocytes # (Manual) PT INR APTT POC ABG pH ABG pH POC ABG pCO2 POC ABG pO2 ABG pO2 ABG HCO3 32.9 H ABG O2 Saturation ABG Base Excess 7.2 H ABG Hemoglobin 10.8 L Oxyhemoglobin Sodium Chloride Carbon Dioxide BUN Creatinine 0.3 L Glucose 139 H POC Glucose Lactic Acid Calcium Magnesium AST ALT Total Creatine Kinase C-Reactive Protein Total Protein Albumin Urine WBC (Auto) Vancomycin Trough Salicylates Acetaminophen 10/13/18 10/13/18 10/13/18 05:17 11:52 17:18 WBC RBC Hgb Hct RDW Lymph % (Auto) [place] % (Auto) [place] # Seg Neutrophils % Seg Neuts % (Manual) Lymphocytes % (Manual) Seg Neutrophils # Seg Neutrophils # Man Lymphocytes # (Manual) Monocytes # (Manual) PT INR APTT POC ABG pH ABG pH POC ABG pCO2 56.7 H POC ABG pO2 63 L ABG pO2 ABG HCO3 ABG O2 Saturation ABG Base Excess ABG Hemoglobin Oxyhemoglobin Sodium Chloride Carbon Dioxide BUN Creatinine Glucose POC Glucose 192 H 200 H Lactic Acid Calcium Magnesium AST ALT Total Creatine Kinase C-Reactive Protein Total Protein Albumin Urine WBC (Auto) Vancomycin Trough Salicylates Acetaminophen 10/13/18 10/14/18 10/14/18 17:53 00:00 03:55 WBC RBC Hgb Hct RDW Lymph % (Auto) [place] % (Auto) [place] # Seg Neutrophils % Seg Neuts % (Manual) Lymphocytes % (Manual) Seg Neutrophils # Seg Neutrophils # Man Lymphocytes # (Manual) Monocytes # (Manual) PT INR APTT POC ABG pH ABG pH POC ABG pCO2 POC ABG pO2 ABG pO2 ABG HCO3 34.1 H ABG O2 Saturation ABG Base Excess 8.4 H ABG Hemoglobin 10.6 L Oxyhemoglobin 94.8 L Sodium Chloride Carbon Dioxide BUN Creatinine Glucose POC Glucose 215 H 236 H Lactic Acid Calcium Magnesium AST ALT Total Creatine Kinase C-Reactive Protein Total Protein Albumin Urine WBC (Auto) Vancomycin Trough Salicylates Acetaminophen 10/14/18 10/14/18 10/14/18 05:00 08:05 08:05 WBC 16.8 H RBC 3.27 L Hgb 9.8 L Hct 29.7 L RDW 13.1 L Lymph % (Auto) 7.5 L [place] % (Auto) 8.6 H [place] # 1.4 H Seg Neutrophils % 82.4 H Seg Neuts % (Manual) Lymphocytes % (Manual) Seg Neutrophils # 13.8 H Seg Neutrophils # Man Lymphocytes # (Manual) Monocytes # (Manual) PT INR APTT POC ABG pH ABG pH POC ABG pCO2 POC ABG pO2 ABG pO2 ABG HCO3 ABG O2 Saturation ABG Base Excess ABG Hemoglobin Oxyhemoglobin Sodium Chloride Carbon Dioxide 33 H BUN Creatinine 0.3 L Glucose 140 H POC Glucose 170 H Lactic Acid Calcium Magnesium AST ALT Total Creatine Kinase C-Reactive Protein Total Protein Albumin Urine WBC (Auto) Vancomycin Trough Salicylates Acetaminophen 10/14/18 10/14/18 10/14/18 12:04 14:06 18:04 WBC RBC Hgb Hct RDW Lymph % (Auto) [place] % (Auto) [place] # Seg Neutrophils % Seg Neuts % (Manual) Lymphocytes % (Manual) Seg Neutrophils # Seg Neutrophils # Man Lymphocytes # (Manual) Monocytes # (Manual) PT INR APTT POC ABG pH 7.330 L ABG pH POC ABG pCO2 67.6 H POC ABG pO2 75 L ABG pO2 ABG HCO3 ABG O2 Saturation ABG Base Excess ABG Hemoglobin Oxyhemoglobin Sodium Chloride Carbon Dioxide BUN Creatinine Glucose POC Glucose 202 H 189 H Lactic Acid Calcium Magnesium AST ALT Total Creatine Kinase C-Reactive Protein Total Protein Albumin Urine WBC (Auto) Vancomycin Trough Salicylates Acetaminophen 10/14/18 10/15/18 10/15/18 23:16 04:58 05:03 WBC 18.0 H RBC 3.36 L Hgb Hct RDW Lymph % (Auto) 7.5 L [place] % (Auto) [place] # 1.3 H Seg Neutrophils % 83.2 H Seg Neuts % (Manual) Lymphocytes % (Manual) Seg Neutrophils # 15.0 H Seg Neutrophils # Man Lymphocytes # (Manual) Monocytes # (Manual) PT INR APTT POC ABG pH ABG pH POC ABG pCO2 54.9 H POC ABG pO2 72 L ABG pO2 ABG HCO3 ABG O2 Saturation ABG Base Excess ABG Hemoglobin Oxyhemoglobin Sodium Chloride Carbon Dioxide BUN Creatinine Glucose POC Glucose 187 H Lactic Acid Calcium Magnesium AST ALT Total Creatine Kinase C-Reactive Protein Total Protein Albumin Urine WBC (Auto) Vancomycin Trough Salicylates Acetaminophen 10/15/18 10/15/18 10/15/18 05:03 05:54 11:53 WBC RBC Hgb Hct RDW Lymph % (Auto) [place] % (Auto) [place] # Seg Neutrophils % Seg Neuts % (Manual) Lymphocytes % (Manual) Seg Neutrophils # Seg Neutrophils # Man Lymphocytes # (Manual) Monocytes # (Manual) PT INR APTT POC ABG pH ABG pH POC ABG pCO2 POC ABG pO2 ABG pO2 ABG HCO3 ABG O2 Saturation ABG Base Excess ABG Hemoglobin Oxyhemoglobin Sodium Chloride Carbon Dioxide 33 H BUN 19 H Creatinine 0.3 L Glucose 161 H POC Glucose 191 H 188 H Lactic Acid Calcium Magnesium AST ALT Total Creatine Kinase C-Reactive Protein Total Protein Albumin Urine WBC (Auto) Vancomycin Trough Salicylates Acetaminophen 10/15/18 10/15/18 10/16/18 17:30 23:15 05:05 WBC RBC Hgb Hct RDW Lymph % (Auto) [place] % (Auto) [place] # Seg Neutrophils % Seg Neuts % (Manual) Lymphocytes % (Manual) Seg Neutrophils # Seg Neutrophils # Man Lymphocytes # (Manual) Monocytes # (Manual) PT INR APTT POC ABG pH ABG pH 7.452 H POC ABG pCO2 POC ABG pO2 ABG pO2 66.6 L ABG HCO3 33.3 H ABG O2 Saturation 94.0 L ABG Base Excess 8.4 H ABG Hemoglobin 8.7 L Oxyhemoglobin 92.1 L Sodium Chloride Carbon Dioxide BUN Creatinine Glucose POC Glucose 178 H 177 H Lactic Acid Calcium Magnesium AST ALT Total Creatine Kinase C-Reactive Protein Total Protein Albumin Urine WBC (Auto) Vancomycin Trough Salicylates Acetaminophen 10/16/18 10/16/18 10/16/18 05:12 05:12 05:49 WBC 21.9 H RBC 3.62 L Hgb Hct RDW Lymph % (Auto) [place] % (Auto) [place] # Seg Neutrophils % Seg Neuts % (Manual) 93.0 H Lymphocytes % (Manual) 1.0 L Seg Neutrophils # Seg Neutrophils # Man 20.4 H Lymphocytes # (Manual) 0.2 L Monocytes # (Manual) 0.9 H PT INR APTT POC ABG pH ABG pH POC ABG pCO2 POC ABG pO2 ABG pO2 ABG HCO3 ABG O2 Saturation ABG Base Excess ABG Hemoglobin Oxyhemoglobin Sodium 136 L Chloride 96.3 L Carbon Dioxide 34 H BUN 20 H Creatinine 0.3 L Glucose 183 H POC Glucose 187 H Lactic Acid Calcium Magnesium AST ALT Total Creatine Kinase C-Reactive Protein Total Protein Albumin Urine WBC (Auto) Vancomycin Trough Salicylates Acetaminophen 10/16/18 10/16/18 10/16/18 11:25 17:41 23:08 WBC RBC Hgb Hct RDW Lymph % (Auto) [place] % (Auto) [place] # Seg Neutrophils % Seg Neuts % (Manual) Lymphocytes % (Manual) Seg Neutrophils # Seg Neutrophils # Man Lymphocytes # (Manual) Monocytes # (Manual) PT INR APTT POC ABG pH ABG pH POC ABG pCO2 POC ABG pO2 ABG pO2 ABG HCO3 ABG O2 Saturation ABG Base Excess ABG Hemoglobin Oxyhemoglobin Sodium Chloride Carbon Dioxide BUN Creatinine Glucose POC Glucose 200 H 184 H 166 H Lactic Acid Calcium Magnesium AST ALT Total Creatine Kinase C-Reactive Protein Total Protein Albumin Urine WBC (Auto) Vancomycin Trough Salicylates Acetaminophen 10/17/18 10/17/18 10/17/18 04:32 04:32 05:12 WBC 19.9 H RBC 3.53 L Hgb Hct RDW Lymph % (Auto) 6.8 L [place] % (Auto) 7.8 H [place] # 1.5 H Seg Neutrophils % 84.2 H Seg Neuts % (Manual) Lymphocytes % (Manual) Seg Neutrophils # 16.7 H Seg Neutrophils # Man Lymphocytes # (Manual) Monocytes # (Manual) PT INR APTT POC ABG pH ABG pH POC ABG pCO2 POC ABG pO2 ABG pO2 ABG HCO3 ABG O2 Saturation ABG Base Excess ABG Hemoglobin Oxyhemoglobin Sodium Chloride Carbon Dioxide 32 H BUN 20 H Creatinine 0.3 L Glucose 155 H POC Glucose 164 H Lactic Acid Calcium Magnesium AST ALT Total Creatine Kinase C-Reactive Protein Total Protein Albumin Urine WBC (Auto) Vancomycin Trough Salicylates Acetaminophen 10/17/18 10/17/18 10/17/18 12:24 13:21 18:03 WBC RBC Hgb Hct RDW Lymph % (Auto) [place] % (Auto) [place] # Seg Neutrophils % Seg Neuts % (Manual) Lymphocytes % (Manual) Seg Neutrophils # Seg Neutrophils # Man Lymphocytes # (Manual) Monocytes # (Manual) PT INR APTT POC ABG pH 7.337 L ABG pH POC ABG pCO2 68.3 H POC ABG pO2 79 L ABG pO2 ABG HCO3 ABG O2 Saturation ABG Base Excess ABG Hemoglobin Oxyhemoglobin Sodium Chloride Carbon Dioxide BUN Creatinine Glucose POC Glucose 169 H 139 H Lactic Acid Calcium Magnesium AST ALT Total Creatine Kinase C-Reactive Protein Total Protein Albumin Urine WBC (Auto) Vancomycin Trough Salicylates Acetaminophen 10/17/18 10/18/18 10/18/18 23:13 03:29 05:33 WBC RBC Hgb Hct RDW Lymph % (Auto) [place] % (Auto) [place] # Seg Neutrophils % Seg Neuts % (Manual) Lymphocytes % (Manual) Seg Neutrophils # Seg Neutrophils # Man Lymphocytes # (Manual) Monocytes # (Manual) PT INR APTT POC ABG pH 7.472 H ABG pH POC ABG pCO2 POC ABG pO2 ABG pO2 ABG HCO3 ABG O2 Saturation ABG Base Excess ABG Hemoglobin Oxyhemoglobin Sodium Chloride Carbon Dioxide BUN Creatinine Glucose POC Glucose 170 H 151 H Lactic Acid Calcium Magnesium AST ALT Total Creatine Kinase C-Reactive Protein Total Protein Albumin Urine WBC (Auto) Vancomycin Trough Salicylates Acetaminophen 10/18/18 10/18/18 10/18/18 11:37 18:06 23:23 WBC RBC Hgb Hct RDW Lymph % (Auto) [place] % (Auto) [place] # Seg Neutrophils % Seg Neuts % (Manual) Lymphocytes % (Manual) Seg Neutrophils # Seg Neutrophils # Man Lymphocytes # (Manual) Monocytes # (Manual) PT INR APTT POC ABG pH ABG pH POC ABG pCO2 POC ABG pO2 ABG pO2 ABG HCO3 ABG O2 Saturation ABG Base Excess ABG Hemoglobin Oxyhemoglobin Sodium Chloride Carbon Dioxide BUN Creatinine Glucose POC Glucose 170 H 165 H 153 H Lactic Acid Calcium Magnesium AST ALT Total Creatine Kinase C-Reactive Protein Total Protein Albumin Urine WBC (Auto) Vancomycin Trough Salicylates Acetaminophen 10/19/18 10/19/18 10/19/18 05:39 08:41 08:41 WBC 13.4 H RBC 3.27 L Hgb 9.5 L Hct 29.7 L RDW Lymph % (Auto) [place] % (Auto) [place] # Seg Neutrophils % Seg Neuts % (Manual) Lymphocytes % (Manual) Seg Neutrophils # Seg Neutrophils # Man Lymphocytes # (Manual) Monocytes # (Manual) PT INR APTT POC ABG pH ABG pH POC ABG pCO2 POC ABG pO2 ABG pO2 ABG HCO3 ABG O2 Saturation ABG Base Excess ABG Hemoglobin Oxyhemoglobin Sodium Chloride Carbon Dioxide 34 H BUN 18 H Creatinine 0.3 L Glucose 137 H POC Glucose 162 H Lactic Acid Calcium 10.5 H Magnesium AST ALT Total Creatine Kinase C-Reactive Protein Total Protein Albumin Urine WBC (Auto) Vancomycin Trough Salicylates Acetaminophen 10/19/18 10/19/18 10/19/18 12:07 16:51 23:17 WBC RBC Hgb Hct RDW Lymph % (Auto) [place] % (Auto) [place] # Seg Neutrophils % Seg Neuts % (Manual) Lymphocytes % (Manual) Seg Neutrophils # Seg Neutrophils # Man Lymphocytes # (Manual) Monocytes # (Manual) PT INR APTT POC ABG pH ABG pH POC ABG pCO2 POC ABG pO2 ABG pO2 ABG HCO3 ABG O2 Saturation ABG Base Excess ABG Hemoglobin Oxyhemoglobin Sodium Chloride Carbon Dioxide BUN Creatinine Glucose POC Glucose 183 H 189 H 179 H Lactic Acid Calcium Magnesium AST ALT Total Creatine Kinase C-Reactive Protein Total Protein Albumin Urine WBC (Auto) Vancomycin Trough Salicylates Acetaminophen 10/20/18 10/20/18 10/20/18 05:21 12:20 16:40 WBC RBC Hgb Hct RDW Lymph % (Auto) [place] % (Auto) [place] # Seg Neutrophils % Seg Neuts % (Manual) Lymphocytes % (Manual) Seg Neutrophils # Seg Neutrophils # Man Lymphocytes # (Manual) Monocytes # (Manual) PT INR APTT POC ABG pH ABG pH POC ABG pCO2 POC ABG pO2 ABG pO2 ABG HCO3 ABG O2 Saturation ABG Base Excess ABG Hemoglobin Oxyhemoglobin Sodium Chloride Carbon Dioxide BUN Creatinine Glucose POC Glucose 142 H 155 H 132 H Lactic Acid Calcium Magnesium AST ALT Total Creatine Kinase C-Reactive Protein Total Protein Albumin Urine WBC (Auto) Vancomycin Trough Salicylates Acetaminophen 10/20/18 10/21/18 10/21/18 23:48 04:11 04:11 WBC 11.3 H RBC 3.19 L Hgb 9.5 L Hct 28.7 L RDW Lymph % (Auto) 12.2 L [place] % (Auto) [place] # Seg Neutrophils % 78.6 H Seg Neuts % (Manual) Lymphocytes % (Manual) Seg Neutrophils # 8.8 H Seg Neutrophils # Man Lymphocytes # (Manual) Monocytes # (Manual) PT INR APTT POC ABG pH ABG pH POC ABG pCO2 POC ABG pO2 ABG pO2 ABG HCO3 ABG O2 Saturation ABG Base Excess ABG Hemoglobin Oxyhemoglobin Sodium Chloride Carbon Dioxide 36 H BUN Creatinine 0.3 L Glucose 137 H POC Glucose 163 H Lactic Acid Calcium 10.8 H Magnesium AST ALT Total Creatine Kinase C-Reactive Protein Total Protein Albumin Urine WBC (Auto) Vancomycin Trough Salicylates Acetaminophen 10/21/18 10/21/18 10/21/18 05:49 11:20 18:12 WBC RBC Hgb Hct RDW Lymph % (Auto) [place] % (Auto) [place] # Seg Neutrophils % Seg Neuts % (Manual) Lymphocytes % (Manual) Seg Neutrophils # Seg Neutrophils # Man Lymphocytes # (Manual) Monocytes # (Manual) PT INR APTT POC ABG pH ABG pH POC ABG pCO2 POC ABG pO2 ABG pO2 ABG HCO3 ABG O2 Saturation ABG Base Excess ABG Hemoglobin Oxyhemoglobin Sodium Chloride Carbon Dioxide BUN Creatinine Glucose POC Glucose 158 H 169 H 150 H Lactic Acid Calcium Magnesium AST ALT Total Creatine Kinase C-Reactive Protein Total Protein Albumin Urine WBC (Auto) Vancomycin Trough Salicylates Acetaminophen 10/22/18 10/22/18 10/22/18 00:08 05:34 11:46 WBC RBC Hgb Hct RDW Lymph % (Auto) [place] % (Auto) [place] # Seg Neutrophils % Seg Neuts % (Manual) Lymphocytes % (Manual) Seg Neutrophils # Seg Neutrophils # Man Lymphocytes # (Manual) Monocytes # (Manual) PT INR APTT POC ABG pH ABG pH POC ABG pCO2 POC ABG pO2 ABG pO2 ABG HCO3 ABG O2 Saturation ABG Base Excess ABG Hemoglobin Oxyhemoglobin Sodium Chloride Carbon Dioxide BUN Creatinine Glucose POC Glucose 142 H 172 H 170 H Lactic Acid Calcium Magnesium AST ALT Total Creatine Kinase C-Reactive Protein Total Protein Albumin Urine WBC (Auto) Vancomycin Trough Salicylates Acetaminophen Allied health notes reviewed: RT
--- NOTE | 2018-10-22 16:46 | Event Note ---
Date: 10/22/18 Discussions with 2 sons and with charge nurse present. I explained the need for family meeting on Tuesday 9-930am as previously discussed last week. The son who was present on , had agreed to the meeting and notified the family. The son present today states he felt we had not communicated well to each other- he emphatically says no to trach and PEG. He says what they want is to extubate his mother and in the event she has a respiratory arrest or cardiac arrest post extubation, then he does not want her re-intubated. I explained to him that those ar e decisions that can be discussed tomorrow. The charge nurse also reports that family are suctioning the patient at will.
--- NOTE | 2018-10-22 18:24 | XRay Report ---
CHEST 1 VIEW INDICATION: Respiratory failure. COMPARISON: 3 days prior FINDINGS: Support devices: Stable support device positioning. Heart: Poorly visualized on this exam because of left lung findings as below. Lungs/Pleura: New atelectasis versus moderate-sized effusion in the left lung with slight leftward me diastinal deviation. Right lung remains clear. Additional findings: None. IMPRESSION: 1. Worsened exam as above. Signer Name: Tomi Mcdonough MD Signed: 10/22/2018 6:20 PM Workstation Name: [id number]
[2018-10-22] MEDS: TYLENOL FEEDTUBE PRN (18:27)
[2018-10-23] MEDS: CARDIZEM PO SCH ×4 (00:04→17:34)
[2018-10-23] MEDS: HumaLOG SUB-Q SCH ×4 (00:05→17:49)
[2018-10-23 05:33] LABS: Basophils # (Auto) 0.1 K/mm3 (0.0-0.1); Basophils % (Auto) 0.9 % (0.0-1.8); Eosinophils # (Auto) 0.3 K/mm3 (0.0-0.4); Eosinophils % (Auto) 3.5 % (0.0-4.3); Lymphocytes # (Auto) 1.5 K/mm3 (1.2-5.4); Lymphocytes % (Auto) 14.9 % (13.4-35.0); Mean Corpuscular HGB Conc 33 % (30-34); Mean Corpuscular Volume 90 fl (79-97); Monocytes # (Auto) 0.8 K/mm3 (0.0-0.8); Monocytes % (Auto) 7.7 % (0.0-7.3); Platelet Count 338 K/mm3 (140-440); Red Blood Count 3.33 M/mm3 (3.65-5.03); Red Cell Distribution Width 14.7 % (13.2-15.2)
[2018-10-23 05:46] LABS: INR 1.08 (0.87-1.13)
[2018-10-23 05:57] LABS: Partial Thromboplastin Time 73.9 Sec. (24.2-36.6)
[2018-10-23 06:33] LABS: Alanine Aminotransferase 22 units/L (7-56); Albumin 2.6 g/dL (3.9-5); BUN/Creatinine Ratio 47; Blood Urea Nitrogen 14 mg/dL (7-17); Calcium 11.1 mg/dL (8.4-10.2); Hemolysis Index 2
[2018-10-23] MEDS: KEPPRA PO SCH ×2 (10:17→22:12)
[2018-10-23] MEDS: PROVIGIL PO SCH (10:17)
[2018-10-23] MEDS: APRESOLINE PO SCH ×2 (10:17→22:11)
[2018-10-23] MEDS: LOPRESSOR PO SCH ×2 (10:17→22:14)
[2018-10-23] MEDS: ELIQUIS PO SCH ×2 (10:17→22:10)
[2018-10-23] MEDS: PEPCID PO SCH ×2 (10:18→22:12)
[2018-10-23] MEDS: SODIUM CHLORIDE FLUSH SYRINGE 10 ML IV SCH ×2 (10:18→22:15)
--- NOTE | 2018-10-23 10:25 | Progress Note ---
Assessment and Plan Assessment and plan: CCT: 35 min Assessment and Plan - Sepsis. Patient off pressors. Continue antibiotics per infectious disease. - Left lower lobe pneumonia. Continue antibiotics per ID recommendation - Left lung collapse; Dr. Jacobo did broch, CXR after bronchoscopy showed improvement - Anoxic brain injury. EEG per Neurology shows no epileptiform abnormalities, focal or lateralizing features, or significant interhemispheric findings.. MRI findings consistent with anoxic brain injury. Keppra started per neurology twice a day for seizure prophylaxis. Cont. Provigil Dr. Sr consulted and had a long discussion about the prognosis. CT head showed cytotoxic edema, severe anoxic brain injury. Cardiopulmonary arrest. Echo revealed EF 60-65%, mild LVH, impaired relaxation, mild TR, mild pulm HTN RVSP 48mmHg, small pericardial effusion, left pleural effusion. Continue supportive care. S/P ACLS protocol initiation with ROSC Acute hypoxemic respiratory failure. Continue mechanical ventilation per pulmonary. Cont. SBT. Patient will need consideration for trach and PEG discussions on Tuesday. Paroxysmal atrial fibrillation. Per cardiology recommendations. Hypertension. Continue antihypertensive medications as needed. Elevated LFTs. Etiology likely secondary to sepsis/shock/ischemic hepatitis. POLLY. Per pulmonary. Overall poor prognosis with minimal chance for neurological recovery Code status: DNR Disposition: Famly member decline PEG and trach Will advise on hospice placement Remains intubated. Still unresponsive. Discussed with patient's nurse. No vomiting reported. Remains afebrile. Objective - Exam Narrative Exam: Constitutional: Intubated and on mechanical ventilation for over 96 hours, unresponsive, Well-nourished well-developed. In no distress Head: Normocephalic atraumatic Eyes: Pupils are equal round and reactive to light Nose: No enlarged turbinates, no septal deviation. Mouth: Moist mucous membranes. Neck: Supple no thyromegaly. No bruit. No JVD Heart: Regular rate and rhythm, S1-S2 normal. No rubs murmurs or gallop Lungs: Clear to auscultation bilaterally. no rales or rhonchi Abdomen: Soft, nontender. Bowel sound are present. Extremities: No edema, no cyanosis, no clubbing. Neuro: Alert oriented Oriented x3. No focal sensory or motor deficit. Skin: No rashes or hyperpigmented spots Musculoskeletal system: No joint pain or swelling Hematological: No petechia or subcutanous hemorrhages. Immunological: No multiple septic spots on the skin Lymphatic: No generalized lymphadenopathy Psychiatry: Euthymic. Calm. Hospitalist Physical - Constitutional Vitals: Temp Pulse Resp BP Pulse Ox 99.1 F 73 12 150/56 97 10/23/18 03:39 10/23/18 10:17 10/23/18 06:00 10/23/18 10:17 10/23/18 07:39 General appearance: Present: no acute distress, other (orally intubated) Results - Labs CBC & Chem 7: 10/24/18 03:59 10/24/18 03:59 Labs: Laboratory Last Values WBC 9.9 K/mm3 (4.5-11.0) 10/23/18 04:48 RBC 3.33 M/mm3 (3.65-5.03) L 10/23/18 04:48 Hgb 10.0 gm/dl (10.1-14.3) L 10/23/18 04:48 Hct 30.0 % (30.3-42.9) L 10/23/18 04:48 MCV 90 fl (79-97) 10/23/18 04:48 MCH 30 pg (28-32) 10/23/18 04:48 MCHC 33 % (30-34) 10/23/18 04:48 RDW 14.7 % (13.2-15.2) 10/23/18 04:48 Plt Count 338 K/mm3 (140-440) 10/23/18 04:48 Lymph % (Auto) 14.9 % (13.4-35.0) 10/23/18 04:48 [place] % (Auto) 7.7 % (0.0-7.3) H 10/23/18 04:48 Eos % (Auto) 3.5 % (0.0-4.3) 10/23/18 04:48 Baso % (Auto) 0.9 % (0.0-1.8) 10/23/18 04:48 Lymph # 1.5 K/mm3 (1.2-5.4) 10/23/18 04:48 [place] # 0.8 K/mm3 (0.0-0.8) 10/23/18 04:48 Eos # 0.3 K/mm3 (0.0-0.4) 10/23/18 04:48 Baso # 0.1 K/mm3 (0.0-0.1) 10/23/18 04:48 Add Manual Diff Complete 10/16/18 05:12 Total Counted 100 10/16/18 05:12 Seg Neutrophils % 73.0 % (40.0-70.0) H 10/23/18 04:48 Seg Neuts % (Manual) 93.0 % (40.0-70.0) H 10/16/18 05:12 1.0 % 10/16/18 05:12 1.0 % (13.4-35.0) L 10/16/18 05:12 Reactive Lymphs % (Man) 0 % 10/16/18 05:12 4.0 % (0.0-7.3) 10/16/18 05:12 0 % (0.0-4.3) 10/16/18 05:12 0 % (0.0-1.8) 10/16/18 05:12 1.0 % 10/16/18 05:12 0 % 10/16/18 05:12 0 % 10/16/18 05:12 0 % 10/16/18 05:12 Nucleated RBC % Not Reportable 10/16/18 05:12 Seg Neutrophils # 7.2 K/mm3 (1.8-7.7) 10/23/18 04:48 Seg Neutrophils # Man 20.4 K/mm3 (1.8-7.7) H 10/16/18 05:12 Band Neutrophils # 0.2 K/mm3 10/16/18 05:12 0.2 K/mm3 (1.2-5.4) L 10/16/18 05:12 Abs React Lymphs (Man) 0.0 K/mm3 10/16/18 05:12 0.9 K/mm3 (0.0-0.8) H 10/16/18 05:12 0.0 K/mm3 (0.0-0.4) 10/16/18 05:12 0.0 K/mm3 (0.0-0.1) 10/16/18 05:12 0.2 K/mm3 10/16/18 05:12 0.0 K/mm3 10/16/18 05:12 0.0 K/mm3 10/16/18 05:12 Blast Cells # 0.0 K/mm3 10/16/18 05:12 WBC Morphology Not Reportable 10/16/18 05:12 Hypersegmented Neuts Not Reportable 10/16/18 05:12 Hyposegmented Neuts Not Reportable 10/16/18 05:12 Hypogranular Neuts Not Reportable 10/16/18 05:12 Not Reportable 10/16/18 05:12 Not Reportable 10/16/18 05:12 Not Reportable 10/16/18 05:12 Not Reportable 10/16/18 05:12 Not Reportable 10/16/18 05:12 Not Reportable 10/16/18 05:12 Consistent w auto 10/16/18 05:12 Not Reportable 10/16/18 05:12 Plt Clumps, EDTA Not Reportable 10/16/18 05:12 Not Reportable 10/16/18 05:12 Not Reportable 10/16/18 05:12 Not Reportable 10/16/18 05:12 Plt Morphology Comment Not Reportable 10/16/18 05:12 RBC Morphology Not Reportable 10/16/18 05:12 Dimorphic RBCs Not Reportable 10/16/18 05:12 Not Reportable 10/16/18 05:12 Not Reportable 10/16/18 05:12 Not Reportable 10/16/18 05:12 Not Reportable 10/16/18 05:12 Not Reportable 10/16/18 05:12 Not Reportable 10/16/18 05:12 Not Reportable 10/16/18 05:12 Not Reportable 10/16/18 05:12 Not Reportable 10/16/18 05:12 Not Reportable 10/16/18 05:12 Not Reportable 10/16/18 05:12 Rare 10/16/18 05:12 Not Reportable 10/16/18 05:12 Not Reportable 10/16/18 05:12 Not Reportable 10/16/18 05:12 Not Reportable 10/16/18 05:12 Not Reportable 10/16/18 05:12 Not Reportable 10/16/18 05:12 Not Reportable 10/16/18 05:12 Acanthocytes (Spur) Not Reportable 10/16/18 05:12 Rouleaux Not Reportable 10/16/18 05:12 Not Reportable 10/16/18 05:12 Not Reportable 10/16/18 05:12 Not Reportable 10/16/18 05:12 Not Reportable 10/16/18 05:12 Hem Pathologist Commnt No 10/16/18 05:12 PT 13.7 Sec. (12.2-14.9) 10/23/18 04:48 INR 1.08 (0.87-1.13) 10/23/18 04:48 APTT 73.9 Sec. (24.2-36.6) H* 10/23/18 04:48 POC ABG pH 7.472 (7.35-7.45) H 10/18/18 03:29 ABG pH 7.452 pH Units (7.350-7.450) H 10/16/18 05:05 POC ABG pCO2 43.6 (35-45) 10/18/18 03:29 ABG pCO2 48.7 mm Hg 10/16/18 05:05 POC ABG pO2 97 (80-105) 10/18/18 03:29 ABG pO2 66.6 mm Hg (80.0-90.0) L 10/16/18 05:05 POC ABG HCO3 31.9 (22-26 mml/L) 10/18/18 03:29 ABG HCO3 33.3 mmol/L (20.0-26.0) H 10/16/18 05:05 POC ABG Total CO2 33 (23-27mmol/L) 10/18/18 03:29 POC ABG O2 Sat 98 10/18/18 03:29 ABG O2 Saturation 94.0 % (95.0-99.0) L 10/16/18 05:05 ABG O2 Content 11.4 (0.0-44) 10/16/18 05:05 POC ABG Base Excess 8 ((-2) - (+3)mmol/L) 10/18/18 03:29 ABG Base Excess 8.4 mmol/L (-2.0-3.0) H 10/16/18 05:05 ABG Hemoglobin 8.7 gm/dl (12.0-16.0) L 10/16/18 05:05 ABG Carboxyhemoglobin 1.5 % (0.0-5.0) 10/16/18 05:05 ABG Methemoglobin 0.6 % (0.0-1.5) 10/16/18 05:05 92.1 % (95.0-99.0) L 10/16/18 05:05 40 % 10/18/18 03:29 Sodium 143 mmol/L (137-145) 10/23/18 04:48 Potassium 4.1 mmol/L (3.6-5.0) 10/23/18 04:48 Chloride 100.6 mmol/L (98-107) 10/23/18 04:48 Carbon Dioxide 37 mmol/L (22-30) H 10/23/18 04:48 10 mmol/L 10/23/18 04:48 BUN 14 mg/dL (7-17) 10/23/18 04:48 0.3 mg/dL (0.7-1.2) L 10/23/18 04:48 Estimated GFR > 60 ml/min 10/23/18 04:48 47 % 10/23/18 04:48 Glucose 139 mg/dL (65-100) H 10/23/18 04:48 POC Glucose 170 (70-105) H 10/23/18 05:30 Lactic Acid 1.90 mmol/L (0.7-2.0) 10/09/18 20:50 Calcium 11.1 mg/dL (8.4-10.2) H 10/23/18 04:48 Magnesium 3.70 mg/dL (1.7-2.3) H 10/09/18 10:50 0.20 mg/dL (0.1-1.2) 10/23/18 04:48 AST 44 units/L (5-40) H 10/23/18 04:48 ALT 22 units/L (7-56) 10/23/18 04:48 77 units/L (35-129) 10/23/18 04:48 171 units/L (30-135) H 10/09/18 10:50 < 0.010 ng/mL (0.00-0.029) 10/09/18 10:50 2.70 mg/dL (0.00-1.30) H 10/12/18 13:03 5.2 g/dL (6.3-8.2) L 10/23/18 04:48 2.6 g/dL (3.9-5) L 10/23/18 04:48 1.0 % 10/23/18 04:48 Yellow (Yellow) 10/09/18 12:12 Hazy (Clear) 10/09/18 12:12 7.0 (5.0-7.0) 10/09/18 12:12 Ur Specific [place] 1.011 (1.003-1.030) 10/09/18 12:12 100 mg/dl mg/dL (Negative) 10/09/18 12:12 150 mg/dL (Negative) 10/09/18 12:12 Neg mg/dL (Negative) 10/09/18 12:12 Sm (Negative) 10/09/18 12:12 Neg (Negative) 10/09/18 12:12 Neg (Negative) 10/09/18 12:12 < 2.0 mg/dL (<2.0) 10/09/18 12:12 Ur Leukocyte Esterase Neg (Negative) 10/09/18 12:12 8.0 /HPF (0.0-6.0) H 10/09/18 12:12 7.0 /HPF (0.0-6.0) 10/09/18 12:12 Few /HPF 10/09/18 12:12 Vancomycin Trough 4.8 ug/mL (5.0-20.0) L 10/12/18 22:33 Salicylates < 0.3 mg/dL (2.8-20.0) L 10/09/18 10:50 Acetaminophen < 5.0 ug/mL (10.0-30.0) L 10/09/18 10:50 Plasma/Serum Alcohol < 0.01 % (0-0.07) 10/09/18 10:50 Active Medications - Current Medications Current Medications: Generic Name Dose Route Start Last Admin Trade Name Freq PRN Reason Stop Dose Admin Acetaminophen 650 mg 10/19/18 09:00 10/22/18 18:27 Tylenol FEEDTUBE 650 mg Q4H PRN Administration Pain, Mild (1-3) Albuterol 2.5 mg 10/12/18 12:20 Proventil IH Q4HRT PRN Shortness Of Breath Lipase/Protease/Amylase 1 each 10/10/18 10:[address] 10,500 Unit FEEDTUBE PRN PRN For Clogged Feeding Tube Apixaban 5 mg 10/09/18 22:00 10/23/18 10:17 Eliquis PO 5 mg BID SAUNDRA Administration Protocol Diltiazem HCl 60 mg 10/10/18 12:00 10/23/18 06:04 Cardizem PO 60 mg Q6HR SAUNDRA Administration Famotidine 20 mg 10/10/18 22:00 10/23/18 10:18 Pepcid PO 20 mg BID SAUNDRA Administration Fentanyl 50 mcg 10/09/18 10:48 10/09/18 14:24 Sublimaze IV 50 mcg Q10MIN PRN Administration ANALGESIA Hydralazine HCl 10 mg 10/16/18 02:07 10/16/18 02:20 Apresoline IV 10 mg Q4H PRN Administration Blood Pressure Hydralazine HCl 25 mg 10/16/18 15:00 10/23/18 10:17 Apresoline PO 25 mg BID SAUNDRA Administration Hydrophilic Ointment 1 applic 10/09/18 10:48 10/22/18 01:32 Vaseline Lip Therapy TP 1 applic Q2HR PRN Administration Dry Lips Fentanyl Citrate 2,000 mcg in 100 mls @ 3.561 mls/hr 10/09/18 11:00 Fentanyl Drip Premix IV TITR SAUNDRA Protocol 1 MCG/KG/HR Propofol 1,000 mg in 100 mls @ 2.025 mls/hr 10/17/18 14:00 10/18/18 10:58 Diprivan 10 Mg/Ml IV 0 mcg/kg/min TITR SAUNDRA 0 mls/hr Titration Protocol 5 MCG/KG/MIN Insulin Human Lispro 0 unit 10/10/18 12:00 10/23/18 06:05 Humalog SUB-Q 2 unit Q6HR SAUNDRA Administration Protocol Levetiracetam 500 mg 10/11/18 10:00 10/23/18 10:17 Keppra PO 500 mg BID SAUNDRA Administration Metoprolol Tartrate 5 mg 10/10/18 09:21 10/18/18 22:52 Lopressor IV 5 mg Q6HR PRN Administration Hypertension Metoprolol Tartrate 50 mg 10/15/18 14:25 10/23/18 10:17 Lopressor PO 50 mg BID SAUNDRA Administration Midazolam HCl 2 mg 10/12/18 12:21 10/22/18 12:01 Versed IV 2 mg Q2H PRN Administration Sedation Modafinil 100 mg 10/14/18 13:10 10/23/18 10:17 Provigil PO 100 mg QAM SAUNDRA Administration Multi-Ingred Cream/Lotion/Oil/Oint 1 applic 10/09/18 10:48 10/20/18 11:03 Artificial Tears Ophth Oint OU 1 applic Q4HR PRN Administration Dry Eye(s) Simple Syrup 15 ml 10/10/18 10:31 Simple Syrup FEEDTUBE PRN PRN Hypoglycemia Simple Syrup 30 ml 10/20/18 11:20 Simple Syrup FEEDTUBE PRN PRN Hypoglycemia Sodium Bicarbonate 325 mg 10/20/18 11:20 Sodium Bicarbonate FEEDTUBE PRN PRN For Clogged Feeding Tube Sodium Chloride 5 ml 10/09/18 10:48 Nacl 0.9% 500 Ml IV DIRECT PRN ARTERIAL PUBLIC HEALTH AIDE Sodium Chloride 10 ml 10/09/18 22:00 10/23/18 10:18 Sodium Chloride Flush Syringe 10 Ml IV 10 ml BID SAUNDRA Administration Sodium Chloride 10 ml 10/09/18 13:07 Sodium Chloride Flush Syringe 10 Ml IV PRN PRN LINE FLUSH Nutrition/Malnutrition Assess - Dietary Evaluation Nutrition/Malnutrition Findings: Nutrition Notes Start: 10/10/18 08:09 Freq: Status: Active Protocol: Document 10/20/18 08:51 LM (Rec: 10/20/18 08:53 LM [id number]) Nutrition Notes Initial or Follow up Reassessment Current Diagnosis Sepsis,Hypertension, Respiratory Failure Other Pertinent Diagnosis Anoxic brain injury Current Diet Vital AF 1.2 at 50 ml/hr Labs/Tests Reviewed Pertinent Medications Reviewed Height 5 ft 2 in Weight 67.5 kg [place] Body Weight (kg) 50.00 BMI 27.2 Weight change and time frame Wt change noted. Subjective/Other Information Pt is at goal rate of 50 ml/hr and tolerating TF. discussed possible trach and PEG. Family member concerned with amount of sugar in TF. Discussed TF selection and concerns with family member. MD requests Sylvester for pt. Percent of energy/protein needs met: 100%/100% Burn Absent Trauma Absent Minimum of two criteria No #1 Nutrition Diagnosis Inadequate oral intake Diagnosis Progress(for reassessment Continues documentation) Is patient on ventilator? Yes Is Patient Ambulatory and/or Out of Bed No REE-([place]-St. Jeor-confined to bed) [phone] Calculation Used for Recommendations [place] Jeor Additional Notes Protein: 80-134g (1.2-2 g/kg) Fluid: 1 ml/kcal Nutrition Intervention Change Diet Order: Continue TF Nutrition Support: Vital AF 1.2 at 50 ml/hr Flush 75 ml/hr Kcal 1,440 Protein (gm) 90 Fluid (mL) 973 Add Supplement/Snack (indicate name/kcal Sylvester BID /protein ) Provides kCal: 190 Provides Protein (gm) 5 Goal #1 Meet at least 75% of energy and protein needs Anticipated Discharge Needs: Unable to determine at this time Follow-Up By: 10/27/18 Additional Comments F/U for TF rate/tolerance, Sylvester
--- NOTE | 2018-10-23 10:26 | Death Summary ---
Summary - Providers Consults: 10/09/18 10:47 Consult to Physician [CONS] Urgent Comment: Consulting Provider: ADRIANA REBOLLEDO Physician Instructions: Reason For Exam: arrest 10/09/18 17:53 Consult to Physician [CONS] Routine Comment: Consulting Provider: PRESTON BEDOYA Physician Instructions: Reason For Exam: myoclonic jerks, possible pseudobulbar palsy 10/10/18 00:01 Consult to Dietitian/Nutrition [CONS] Routine Physician Instructions: Reason For Exam: Reason for Consult: Write/Manage Tube Feeding 10/10/18 12:08 Consult to Physician [CONS] Routine Comment: Consulting Provider: JOHN GARCIA Physician Instructions: Reason For Exam: septic shock 10/16/18 12:43 Consult to Physician [CONS] Routine Comment: Consulting Provider: LEO SR Physician Instructions: Reason For Exam: Acute encephalopathy s/p cardiac arrest 10/16/18 17:51 Consult to Physician [CONS] Routine Comment: Consulting Provider: LEO SR Physician Instructions: Reason For Exam: 2nd opinion Attending: MAGGIE LEWIS MD - summary Date of admission: 10/09/18 13:07 Significant findings: 68-year-old woman who was brought to the hospital. She had previously been at [facility] for respiratory failure with hypoxia and hypercapnia and subclinical pneumothorax. She had supraglottic airway placed the patient was found to be not breathing by EMS, she received CPR, which included intubation ventilation, and she was shocked x1 time for a shockable rhythm. The patient had extensive/prolonged CPR by EMS close to 1 hour. Upon arriving in the hospital the patient remained comatose and did not recover her mental status. She was ventilator dependent throughout her hospital stay Assessment and Plan - Sepsis. Patient off pressors. She was treated with antibiotics for infectious disease - Left lower lobe pneumonia. Antibiotics as stated above - Left lung collapse; Dr. Jacobo did broch, CXR after bronchoscopy showed improvement - Anoxic brain injury. EEG per Neurology shows no epileptiform abnormalities, focal or lateralizing features, or significant interhemispheric findings.. MRI findings consistent with anoxic brain injury. Keppra started per neurology twice a day for seizure prophylaxis. Treated with. Provigil Dr. Sr consulted and had a long discussion about the prognosis. CT head showed cytotoxic edema, severe anoxic brain injury. Cardiopulmonary arrest. Echo revealed EF 60-65%, mild LVH, impaired relaxation, mild TR, mild pulm HTN RVSP 48mmHg, small pericardial effusion, left pleural ef fusion. Continue supportive care. S/P ACLS protocol initiation with ROSC Acute hypoxemic respiratory failure. Continue mechanical ventilation per pulmonary. Cont. SBT. Patient will need consideration for trach and PEG discussions on Tuesday. Paroxysmal atrial fibrillation. Meds optimized for resident care manager rn Hypertension. Continue antihypertensive medications as needed. Elevated LFTs. Likely due to shock liver POLLY. Family meeting was held with the family members. Given anoxic brain injury and very low likelihood for any recovery. The family elected to make her DNR. They were not interested in PEG or trach. And after all family members could come to an agreement, the decision was made to withdraw life support and make her comfort care. Life support was withdrawn and patient was allowed to naturally. She with family members in the room
--- NOTE | 2018-10-23 10:32 | Event Note ---
Date: 10/23/18 Extensive discussions with Case management, Nurse manager workers compensation and director of the ICU. Son, Juanpablo, physically present, a sister in law, her brother Rajendra Dennis, a nephew and their kiss mixer Kenna Molina. The sons- David, Anthony and Freddy were on the phone lines. They have decided to withdraw care. I explained to them that based on my interactions with them in carla last 2 days, I will hand over care to Dr. De Souza from here on. The patient no longer requires critical care management. Dr. De Souza met the family and has graciously agreed to continue to help with navigating their care needs at this time.
[2018-10-23] MEDS: APRESOLINE IV PRN (21:27)
[2018-10-24] MEDS: HumaLOG SUB-Q SCH ×3 (00:05→13:51)
[2018-10-24] MEDS: CARDIZEM PO SCH ×3 (00:06→13:51)
[2018-10-24] MEDS: APRESOLINE IV PRN (03:06)
[2018-10-24] MEDS: TYLENOL FEEDTUBE PRN (03:07)
[2018-10-24 05:49] LABS: Basophils # (Auto) 0.1 K/mm3 (0.0-0.1); Basophils % (Auto) 0.9 % (0.0-1.8); Eosinophils # (Auto) 0.2 K/mm3 (0.0-0.4); Eosinophils % (Auto) 2.2 % (0.0-4.3); Hematocrit 34.5 % (30.3-42.9); Hemoglobin 11.4 gm/dl (10.1-14.3); Lymphocytes # (Auto) 1.5 K/mm3 (1.2-5.4); Lymphocytes % (Auto) 13.7 % (13.4-35.0); Mean Corpuscular HGB Conc 33 % (30-34); Mean Corpuscular Volume 91 fl (79-97); Monocytes # (Auto) 0.8 K/mm3 (0.0-0.8); Monocytes % (Auto) 7.1 % (0.0-7.3); Platelet Count 401 K/mm3 (140-440); Red Blood Count 3.81 M/mm3 (3.65-5.03); Red Cell Distribution Width 14.7 % (13.2-15.2)
[2018-10-24 06:18] LABS: Alanine Aminotransferase 27 units/L (7-56); Albumin 3.1 g/dL (3.9-5); BUN/Creatinine Ratio 38; Blood Urea Nitrogen 15 mg/dL (7-17); Calcium 11.8 mg/dL (8.4-10.2); Hemolysis Index 3
[2018-10-24] MEDS: APRESOLINE PO SCH (09:42)
[2018-10-24] MEDS: ELIQUIS PO SCH (09:42)
[2018-10-24] MEDS: LOPRESSOR PO SCH (09:42)
[2018-10-24] MEDS: PROVIGIL PO SCH (09:43)
[2018-10-24] MEDS: SODIUM CHLORIDE FLUSH SYRINGE 10 ML IV SCH (09:43)
[2018-10-24] MEDS: PEPCID PO SCH (09:43)
[2018-10-24] MEDS: KEPPRA PO SCH (09:43)
[2018-10-24] MEDS ORDERED: ATIVAN IV PRN (13:07)
[2018-10-24] MEDS ORDERED: ISOPTO TEARS 0.5% OU PRN (13:07)
[2018-10-24] MEDS ORDERED: MORPHINE IV PRN (13:07)
[2018-10-24] MEDS ORDERED: ROBINUL IV PRN (13:07)
[2018-10-24] MEDS ORDERED: TYLENOL PR PRN (13:07)
[2018-10-24 14:05] VITALS: BP 168/77
--- NOTE | 2018-10-25 16:08 | Progress Note ---
Assessment and Plan Assessment and plan: CCT: 35 min Assessment and Plan - Sepsis. Patient off pressors. Continue antibiotics per infectious disease. - Left lower lobe pneumonia. Continue antibiotics per ID recommendation - Left lung collapse; Dr. Jacobo did broch, CXR after bronchoscopy showed improvement - Anoxic brain injury. EEG per Neurology shows no epileptiform abnormalities, focal or lateralizing features, or significant interhemispheric findings.. MRI findings consistent with anoxic brain injury. Keppra started per neurology twice a day for seizure prophylaxis. Cont. Provigil Dr. Sr consulted and had a long discussion about the prognosis. CT head showed cytotoxic edema, severe anoxic brain injury. Cardiopulmonary arrest. Echo revealed EF 60-65%, mild LVH, impaired relaxation, mild TR, mild pulm HTN RVSP 48mmHg, small pericardial effusion, left pleural effusion. Continue supportive care. S/P ACLS protocol initiation with ROSC Acute hypoxemic respiratory failure. Continue mechanical ventilation per pulmonary. Cont. SBT. Patient will need consideration for trach and PEG discussions on Tuesday. Paroxysmal atrial fibrillation. Per cardiology recommendations. Hypertension. Continue antihypertensive medications as needed. Elevated LFTs. Etiology likely secondary to sepsis/shock/ischemic hepatitis. POLLY. Per pulmonary. Overall poor prognosis with minimal chance for neurological recovery Code status: DNR Disposition: Famly member decline PEG and trach Will advise on hospice placement Remains intubated. Still unresponsive. Discussed with patient's nurse. No vomiting reported. Remains afebrile. Objective - Exam Narrative Exam: Constitutional: Intubated and on mechanical ventilation for over 96 hours, unresponsive, Well-nourished well-developed. In no distress Head: Normocephalic atraumatic Eyes: Pupils are equal round and reactive to light Nose: No enlarged turbinates, no septal deviation. Mouth: Moist mucous membranes. Neck: Supple no thyromegaly. No bruit. No JVD Heart: Regular rate and rhythm, S1-S2 normal. No rubs murmurs or gallop Lungs: Clear to auscultation bilaterally. no rales or rhonchi Abdomen: Soft, nontender. Bowel sound are present. Extremities: No edema, no cyanosis, no clubbing. Neuro: Alert oriented Oriented x3. No focal sensory or motor deficit. Skin: No rashes or hyperpigmented spots Musculoskeletal system: No joint pain or swelling Hematological: No petechia or subcutanous hemorrhages. Immunological: No multiple septic spots on the skin Lymphatic: No generalized lymphadenopathy Psychiatry: Euthymic. Calm. Hospitalist Physical - Constitutional Vitals: Temp Pulse Resp BP Pulse Ox 98.0 F 109 H 28 H 168/77 81 L 10/24/18 12:00 10/24/18 14:05 10/24/18 14:00 10/24/18 14:05 10/24/18 14:05 General appearance: Present: no acute distress, other (orally intubated) Results - Labs CBC & Chem 7: 10/24/18 03:59 10/24/18 03:59 Labs: Laboratory Last Values WBC 11.2 K/mm3 (4.5-11.0) H 10/24/18 03:59 RBC 3.81 M/mm3 (3.65-5.03) 10/24/18 03:59 Hgb 11.4 gm/dl (10.1-14.3) 10/24/18 03:59 Hct 34.5 % (30.3-42.9) 10/24/18 03:59 MCV 91 fl (79-97) 10/24/18 03:59 MCH 30 pg (28-32) 10/24/18 03:59 MCHC 33 % (30-34) 10/24/18 03:59 RDW 14.7 % (13.2-15.2) 10/24/18 03:59 Plt Count 401 K/mm3 (140-440) 10/24/18 03:59 Lymph % (Auto) 13.7 % (13.4-35.0) 10/24/18 03:59 [place] % (Auto) 7.1 % (0.0-7.3) 10/24/18 03:59 Eos % (Auto) 2.2 % (0.0-4.3) 10/24/18 03:59 Baso % (Auto) 0.9 % (0.0-1.8) 10/24/18 03:59 Lymph # 1.5 K/mm3 (1.2-5.4) 10/24/18 03:59 [place] # 0.8 K/mm3 (0.0-0.8) 10/24/18 03:59 Eos # 0.2 K/mm3 (0.0-0.4) 10/24/18 03:59 Baso # 0.1 K/mm3 (0.0-0.1) 10/24/18 03:59 Add Manual Diff Complete 10/16/18 05:12 Total Counted 100 10/16/18 05:12 Seg Neutrophils % 76.1 % (40.0-70.0) H 10/24/18 03:59 Seg Neuts % (Manual) 93.0 % (40.0-70.0) H 10/16/18 05:12 1.0 % 10/16/18 05:12 1.0 % (13.4-35.0) L 10/16/18 05:12 Reactive Lymphs % (Man) 0 % 10/16/18 05:12 4.0 % (0.0-7.3) 10/16/18 05:12 0 % (0.0-4.3) 10/16/18 05:12 0 % (0.0-1.8) 10/16/18 05:12 1.0 % 10/16/18 05:12 0 % 10/16/18 05:12 0 % 10/16/18 05:12 0 % 10/16/18 05:12 Nucleated RBC % Not Reportable 10/16/18 05:12 Seg Neutrophils # 8.5 K/mm3 (1.8-7.7) H 10/24/18 03:59 Seg Neutrophils # Man 20.4 K/mm3 (1.8-7.7) H 10/16/18 05:12 Band Neutrophils # 0.2 K/mm3 10/16/18 05:12 0.2 K/mm3 (1.2-5.4) L 10/16/18 05:12 Abs React Lymphs (Man) 0.0 K/mm3 10/16/18 05:12 0.9 K/mm3 (0.0-0.8) H 10/16/18 05:12 0.0 K/mm3 (0.0-0.4) 10/16/18 05:12 0.0 K/mm3 (0.0-0.1) 10/16/18 05:12 0.2 K/mm3 10/16/18 05:12 0.0 K/mm3 10/16/18 05:12 0.0 K/mm3 10/16/18 05:12 Blast Cells # 0.0 K/mm3 10/16/18 05:12 WBC Morphology Not Reportable 10/16/18 05:12 Hypersegmented Neuts Not Reportable 10/16/18 05:12 Hyposegmented Neuts Not Reportable 10/16/18 05:12 Hypogranular Neuts Not Reportable 10/16/18 05:12 Not Reportable 10/16/18 05:12 Not Reportable 10/16/18 05:12 Not Reportable 10/16/18 05:12 Not Reportable 10/16/18 05:12 Not Reportable 10/16/18 05:12 Not Reportable 10/16/18 05:12 Consistent w auto 10/16/18 05:12 Not Reportable 10/16/18 05:12 Plt Clumps, EDTA Not Reportable 10/16/18 05:12 Not Reportable 10/16/18 05:12 Not Reportable 10/16/18 05:12 Not Reportable 10/16/18 05:12 Plt Morphology Comment Not Reportable 10/16/18 05:12 RBC Morphology Not Reportable 10/16/18 05:12 Dimorphic RBCs Not Reportable 10/16/18 05:12 Not Reportable 10/16/18 05:12 Not Reportable 10/16/18 05:12 Not Reportable 10/16/18 05:12 Not Reportable 10/16/18 05:12 Not Reportable 10/16/18 05:12 Not Reportable 10/16/18 05:12 Not Reportable 10/16/18 05:12 Not Reportable 10/16/18 05:12 Not Reportable 10/16/18 05:12 Not Reportable 10/16/18 05:12 Not Reportable 10/16/18 05:12 Rare 10/16/18 05:12 Not Reportable 10/16/18 05:12 Not Reportable 10/16/18 05:12 Not Reportable 10/16/18 05:12 Not Reportable 10/16/18 05:12 Not Reportable 10/16/18 05:12 Not Reportable 10/16/18 05:12 Not Reportable 10/16/18 05:12 Acanthocytes (Spur) Not Reportable 10/16/18 05:12 Rouleaux Not Reportable 10/16/18 05:12 Not Reportable 10/16/18 05:12 Not Reportable 10/16/18 05:12 Not Reportable 10/16/18 05:12 Not Reportable 10/16/18 05:12 Hem Pathologist Commnt No 10/16/18 05:12 PT 13.7 Sec. (12.2-14.9) 10/23/18 04:48 INR 1.08 (0.87-1.13) 10/23/18 04:48 APTT 73.9 Sec. (24.2-36.6) H* 10/23/18 04:48 POC ABG pH 7.472 (7.35-7.45) H 10/18/18 03:29 ABG pH 7.452 pH Units (7.350-7.450) H 10/16/18 05:05 POC ABG pCO2 43.6 (35-45) 10/18/18 03:29 ABG pCO2 48.7 mm Hg 10/16/18 05:05 POC ABG pO2 97 (80-105) 10/18/18 03:29 ABG pO2 66.6 mm Hg (80.0-90.0) L 10/16/18 05:05 POC ABG HCO3 31.9 (22-26 mml/L) 10/18/18 03:29 ABG HCO3 33.3 mmol/L (20.0-26.0) H 10/16/18 05:05 POC ABG Total CO2 33 (23-27mmol/L) 10/18/18 03:29 POC ABG O2 Sat 98 10/18/18 03:29 ABG O2 Saturation 94.0 % (95.0-99.0) L 10/16/18 05:05 ABG O2 Content 11.4 (0.0-44) 10/16/18 05:05 POC ABG Base Excess 8 ((-2) - (+3)mmol/L) 10/18/18 03:29 ABG Base Excess 8.4 mmol/L (-2.0-3.0) H 10/16/18 05:05 ABG Hemoglobin 8.7 gm/dl (12.0-16.0) L 10/16/18 05:05 ABG Carboxyhemoglobin 1.5 % (0.0-5.0) 10/16/18 05:05 ABG Methemoglobin 0.6 % (0.0-1.5) 10/16/18 05:05 92.1 % (95.0-99.0) L 10/16/18 05:05 40 % 10/18/18 03:29 Sodium 143 mmol/L (137-145) 10/24/18 03:59 Potassium 4.1 mmol/L (3.6-5.0) 10/24/18 03:59 Chloride 99.7 mmol/L (98-107) 10/24/18 03:59 Carbon Dioxide 33 mmol/L (22-30) H 10/24/18 03:59 14 mmol/L 10/24/18 03:59 BUN 15 mg/dL (7-17) 10/24/18 03:59 0.4 mg/dL (0.7-1.2) L 10/24/18 03:59 Estimated GFR > 60 ml/min 10/24/18 03:59 38 % 10/24/18 03:59 Glucose 186 mg/dL (65-100) H 10/24/18 03:59 POC Glucose 167 (70-105) H 10/24/18 12:43 Lactic Acid 1.90 mmol/L (0.7-2.0) 10/09/18 20:50 Calcium 11.8 mg/dL (8.4-10.2) H 10/24/18 03:59 Magnesium 3.70 mg/dL (1.7-2.3) H 10/09/18 10:50 0.30 mg/dL (0.1-1.2) 10/24/18 03:59 AST 55 units/L (5-40) H 10/24/18 03:59 ALT 27 units/L (7-56) 10/24/18 03:59 99 units/L (35-129) 10/24/18 03:59 171 units/L (30-135) H 10/09/18 10:50 < 0.010 ng/mL (0.00-0.029) 10/09/18 10:50 2.70 mg/dL (0.00-1.30) H 10/12/18 13:03 6.4 g/dL (6.3-8.2) D 10/24/18 03:59 3.1 g/dL (3.9-5) L 10/24/18 03:59 0.9 % 10/24/18 03:59 Yellow (Yellow) 10/09/18 12:12 Hazy (Clear) 10/09/18 12:12 7.0 (5.0-7.0) 10/09/18 12:12 Ur Specific [place] 1.011 (1.003-1.030) 10/09/18 12:12 100 mg/dl mg/dL (Negative) 10/09/18 12:12 150 mg/dL (Negative) 10/09/18 12:12 Neg mg/dL (Negative) 10/09/18 12:12 Sm (Negative) 10/09/18 12:12 Neg (Negative) 10/09/18 12:12 Neg (Negative) 10/09/18 12:12 < 2.0 mg/dL (<2.0) 10/09/18 12:12 Ur Leukocyte Esterase Neg (Negative) 10/09/18 12:12 8.0 /HPF (0.0-6.0) H 10/09/18 12:12 7.0 /HPF (0.0-6.0) 10/09/18 12:12 Few /HPF 10/09/18 12:12 Vancomycin Trough 4.8 ug/mL (5.0-20.0) L 10/12/18 22:33 Salicylates < 0.3 mg/dL (2.8-20.0) L 10/09/18 10:50 Acetaminophen < 5.0 ug/mL (10.0-30.0) L 10/09/18 10:50 Plasma/Serum Alcohol < 0.01 % (0-0.07) 10/09/18 10:50 Nutrition/Malnutrition Assess - Dietary Evaluation Nutrition/Malnutrition Findings: Nutrition Notes Start: 10/10/18 08:09 Freq: Status: Discharge Protocol: Document 10/20/18 08:51 LM (Rec: 10/20/18 08:53 LM [email or web address]) Nutrition Notes Initial or Follow up Reassessment Current Diagnosis Sepsis,Hypertension, Respiratory Failure Other Pertinent Diagnosis Anoxic brain injury Current Diet Vital AF 1.2 at 50 ml/hr Labs/Tests Reviewed Pertinent Medications Reviewed Height 5 ft 2 in Weight 67.5 kg [place] Body Weight (kg) 50.00 BMI 27.2 Weight change and time frame Wt change noted. Subjective/Other Information Pt is at goal rate of 50 ml/hr and tolerating TF. MD discussed possible trach and PEG. Family member concerned with amount of sugar in TF. Discussed TF selection and concerns with family member. MD requests Sylvester for pt. Percent of energy/protein needs met: 100%/100% Burn Absent Trauma Absent Minimum of two criteria No #1 Nutrition Diagnosis Inadequate oral intake Diagnosis Progress(for reassessment Continues documentation) Is patient on ventilator? Yes Is Patient Ambulatory and/or Out of Bed No REE-([facility]-confined to bed) 1407.432 Calculation Used for Recommendations [facility] Additional Notes Protein: 80-134g (1.2-2 g/kg) Fluid: 1 ml/kcal Nutrition Intervention Change Diet Order: Continue TF Nutrition Support: Vital AF 1.2 at 50 ml/hr Flush 75 ml/hr Kcal 1,440 Protein (gm) 90 Fluid (mL) 973 Add Supplement/Snack (indicate name/kcal Sylvester BID /protein ) Provides kCal: 190 Provides Protein (gm) 5 Goal #1 Meet at least 75% of energy and protein needs Anticipated Discharge Needs: Unable to determine at this time Follow-Up By: 10/27/18 Additional Comments F/U for TF rate/tolerance, Sylvester
== END 2018-10-24 17:00 | DRG 853 ==
LOC: ED 10:02 → CC1 13:07
PROVIDERS: ADMIT Internal Medicine; ATTEND Internal Medicine
PROC: 5A1955Z Respiratory Ventilation, Greater than 96 Consecutive Hours (ICD-10-PCS; principal; 2018-10-09)
PROC: 0BH17EZ Insertion of Endotracheal Airway into Trachea, Via Natural or Artificial Opening (ICD-10-PCS; 2018-10-09)
PROC: 3E0A3GC Introduction of Other Therapeutic Substance into Bone Marrow, Percutaneous Approach (ICD-10-PCS; 2018-10-09)
PROC: 5A12012 Performance of Cardiac Output, Single, Manual (ICD-10-PCS; 2018-10-09)
PROC: 02HV33Z Insertion of Infusion Device into Superior Vena Cava, Percutaneous Approach (ICD-10-PCS; 2018-10-09)
PROC: B548ZZA Ultrasonography of Superior Vena Cava, Guidance (ICD-10-PCS; 2018-10-09)
PROC: 4A033R1 Measurement of Arterial Saturation, Peripheral, Percutaneous Approach (ICD-10-PCS; 2018-10-09)
PROC: 0B9L8ZX Drainage of Left Lung, Via Natural or Artificial Opening Endoscopic, Diagnostic (ICD-10-PCS; 2018-10-17)
PROC: 0B998ZZ Drainage of Lingula Bronchus, Via Natural or Artificial Opening Endoscopic (ICD-10-PCS; 2018-10-17)
PROC: 0B988ZZ Drainage of Left Upper Lobe Bronchus, Via Natural or Artificial Opening Endoscopic (ICD-10-PCS; 2018-10-17)
PROC: 0B9B8ZZ Drainage of Left Lower Lobe Bronchus, Via Natural or Artificial Opening Endoscopic (ICD-10-PCS; 2018-10-17)
DX: A41.9 Sepsis, unspecified organism (principal); R65.21 Severe sepsis with septic shock; J69.0 Pneumonitis due to inhalation of food and vomit; G93.41 Metabolic encephalopathy; J96.01 Acute respiratory failure with hypoxia; J96.02 Acute respiratory failure with hypercapnia; K72.00 Acute and subacute hepatic failure without coma; G93.1 Anoxic brain damage, not elsewhere classified; J98.11 Atelectasis; E87.1 Hypo-osmolality and hyponatremia; J93.83 Other pneumothorax; J98.19 Other pulmonary collapse; G25.3 Myoclonus; I48.0 Paroxysmal atrial fibrillation; G47.33 Obstructive sleep apnea (adult) (pediatric); Z66 Do not resuscitate; D72.823 Leukemoid reaction; I46.9 Cardiac arrest, cause unspecified; I10 Essential (primary) hypertension; K21.9 Gastro-esophageal reflux disease without esophagitis; Z79.01 Long term (current) use of anticoagulants; Z82.49 Family history of ischemic heart disease and other diseases of the circulatory system; Z88.0 Allergy status to penicillin; Z87.891 Personal history of nicotine dependence
CPT/HCPCS: 36415; 36600; 70450; 70553; 71045; 71275; 74018; 74177; 80048; 80053; 80202; 80320; 81001; 82140; 82550; 82803; 82962; 83735; 84484; 85007; 85025; 85027; 85610; 85730; 86140; 87040; 87070; 87086; 87116; 87205; 92950; 93005; 93010; 93306; 94002; 94003; 95819; 96365; 96375; 99292; G0378; A9577; G0480; J0360; J0692; J1720; J1815; J1956; J2250; J2270; J2704; J3010; J3370; J3475; J7030; J7040; Q9967